=== PATIENT | male | born 1955 | race Caucasian/White ===

== ENCOUNTER 2016-06-22 18:57 | Inpatient (IN) | payer OTHER ==
--- NOTE | 2016-06-22 19:20 | PDOC ---
History of Present Illness - General History Source: Patient - History of Present Illness Initial Comments: 06/22/16 20:01 The patient is a 61 year old male with a significant past medical history of HTN , HLD, diabetes,cardiac bypass (2008), stents x5, right foot toes amputation, LASIK eye surgery who is arrived to the Emergency Department via EMS with complaints of chest tightness and allergic reaction to medications. Pt reports experiencing rash on his arms, which he believes might be due to water pills that he takes. Pt was seen in the ER on 05/31 when he was experiencing the same upper extremities rash. He also reports experiencing chest tightness and SOB due to anxiety. Pt was seen in [facility] last week for arms rash and swelling, got discharged on Friday. He denies fever, chills, abdominal pain, nausea, vomiting, diarrhea, headache, dizziness. SH:non smoker. No EtOH use ALL: banana PCP:Dr. Rios Life Skills Coach: Dr. Landers <Nadine Tuttle - Last Filed: 06/22/16 21:09> <Vanita Gregorio - Last Filed: 06/23/16 20:32> - General Stated Complaint: CHEST PAIN Time Seen by Provider: 06/22/16 19:19 Past History <Nadine Tuttle - Last Filed: 06/22/16 21:09> - Past Medical History Anemia: No Asthma: No Cancer: No Cardiac Disorders: Yes (STENTS X5) CVA: No COPD: No CHF: No Dementia: No Diabetes: Yes GI Disorders: No Disorders: No HTN: Yes Hypercholesterolemia: Yes Liver Disease: No Suicide Attempt (Hx): No Seizures: No Thyroid Disease: No - Surgical History Abdominal Surgery: No Appendectomy: No Cardiac Surgery: Yes (stents) Cholecystectomy: No Lung Surgery: No Neurologic Surgery: No Orthopedic Surgery: Yes (R. hand, r. foot toes amputated, l. foot 4th & 5th toes amputated) - Immunization History Td Vaccination: Yes TDAP Vaccination: Yes Immunization Up to Date: No - Psycho/Social/Smoking Cessation Hx Anxiety: No Suicidal Ideation: No Smoking Status: No Smoking History: Never smoked Have you smoked in the past 12 months: No Number of Cigarettes Smoked Daily: 0 Hx Alcohol Use: No Drug/Substance Use Hx: No Substance Use Type: None Hx Substance Use Treatment: No <Vanita Gregorio - Last Filed: 06/23/16 20:32> - Past Medical History Allergies/Adverse Reactions: Allergies Allergy/AdvReac Type Severity Reaction Status Date / Time banana Allergy Verified 05/31/16 20:13 No Known Drug Allergies Allergy Verified 05/31/16 20:13 Home Medications: Ambulatory Orders Acetaminophen 325 mg PO Q6H PRN 06/22/16 Ascorbate Calcium [Vitamin C] 500 mg PO DAILY 06/22/16 Calcitriol [Rocaltrol -] 0.25 mcg PO DAILY 06/22/16 Carvedilol [Coreg] 12.5 mg PO DAILY 06/22/16 Citalopram Hydrobromide [Citalopram HBr] 20 mg PO DAILY 06/22/16 Clopidogrel Bisulfate [Clopidogrel] 75 mg PO DAILY 06/22/16 Divalproex [Depakote -] 250 mg PO BID 06/22/16 Insulin Glargine,Hum.rec.anlog [Lantus (nf)] 6 units SQ HS 06/22/16 Insulin Lispro [Humalog] 2 unit SQ TID 06/22/16 Levetiracetam [Keppra Xr -] 500 mg PO DAILY 06/22/16 Sevelamer HCl [Renagel] 800 mg PO TID 06/22/16 Simvastatin [Zocor -] 40 mg PO HS 06/22/16 Warfarin Na [Coumadin] 9 mg PO DAILY 06/22/16 Review of Systems - Review of Systems Able to Perform ROS?: Yes Comments:: 06/22/16 20:01 GENERAL/CONSTITUTIONAL: No: fever, chills, weakness, loss of appetite. HEAD, EYES, EARS, NOSE AND THROAT: No: change in vision, ear pain, discharge, sore throat, throat swelling. CARDIOVASCULAR: Yes: chest pain No: lightheadedness, palpitations, syncope RESPIRATORY: Yes: SOB No: cough, wheezing, hemoptysis, stridor. GASTROINTESTINAL: No: nausea, vomiting, abdominal cramping, diarrhea, rectal bleeding, constipation. GENITOURINARY: No: dysuria, hematuria, frequency, urgency, flank pain. MUSCULOSKELETAL: No: back pain, neck pain, joint pain, muscle swelling or pain SKIN AND BREASTS: Yes: arms rash No: lesions, pallor,easy bruising. NEUROLOGIC: No: headache, vertigo, paresthesias, weakness ENDOCRINE: No: unexplained weight gain or loss HEMATOLOGIC/LYMPHATIC: No: anemia, easy bleeding, swelling nodes All Other Systems: Reviewed and Negative <Nadine Tuttle - Last Filed: 06/22/16 21:09> *Physical Exam - Vital Signs Last Vital Signs Temp Pulse Resp BP Pulse Ox 97.8 F 110 H 18 127/68 100 06/22/16 19:36 06/22/16 19:36 06/22/16 19:36 06/22/16 19:36 06/22/16 19:36 - Physical Exam Comments: 06/22/16 20:02 GENERAL: The patient is in no acute distress. HEAD: Normal with no signs of trauma. EYES: PERRLA, EOMI, sclera anicteric, conjunctiva clear. ENT: Ears normal, nares patent, oropharynx clear without exudates. Moist mucous membranes. NECK: Normal range of motion, supple without lymphadenopathy, JVD, or masses. LUNGS: Breath sounds equal, clear to auscultation bilaterally. No wheezes, and no crackles. HEART:Regular rate and rhythm, normal S1 and S2 without murmur, rub or gallop. ABDOMEN: Soft, nontender, normoactive bowel sounds. No guarding, no rebound. EXTREMITIES: +left foot 4th and 5th amputation. right foot toes amputation. bilateral lower extremities edema. Normal range of motion. No clubbing or cyanosis. No erythema, or tenderness. NEUROLOGICAL: Cranial nerves II through XII grossly intact. Normal speech. No focal neurological deficits. MUSCULOSKELETAL: Back non-tender to palpation, no CVA tenderness SKIN: +bilateral upper extremities rash. Warm, Dry, normal turgor, no rashes or lesions noted. <Nadine Tuttle - Last Filed: 06/22/16 21:09> ED Treatment Course - LABORATORY CBC & Chemistry Diagram: 06/22/16 19:59 06/22/16 19:59 <Nadine Tuttle - Last Filed: 06/22/16 21:09> - LABORATORY CBC & Chemistry Diagram: 06/23/16 06:05 06/23/16 06:05 <Vanita Gregorio - Last Filed: 06/23/16 20:32> Medical Decision Making - Medical Decision Making 06/22/16 21:09 case was discussed with Dr. Sepulveda <Nadine Tuttle - Last Filed: 06/22/16 21:09> - Medical Decision Making 06/23/16 20:26 Pt comes with chest pain and CHF exacerbation; he also has chronic wounds on his left foot that he tends to at the wound clinic. Pt states that he is compliant with all his meds, and yet he states that he is unable to keep himself well; he thinks perhaps it is because he gets confused with his meds, as he takes so many. He has DM and HTN. Pt has tachycardia in the ER; he is afebrile and he is not complaining of body pain. He has a hyphema in his eye, and states that he had eye surgery recently but never followed up with an eye appointment as he was supposed to. He also complains of rash on his arms, but it appears that he was here in Dec with the same rash, and it is improving rash seems to be an allergic reaction to perhaps the bactrim that he was taking) Pt will be admitted to his PMD, as he has CP, CHF exacerbation with pitting edema in his legs, SOB. <Vanita Gregorio - Last Filed: 06/23/16 20:32> *DC/Admit/Observation/Transfer - Attestations Scribe Attestion: 06/22/16 20:05 Documentation prepared by Nadine Tuttle, acting as medical technologist generalist for Vanita Gregorio MD. <Nadine Tuttle - Last Filed: 06/22/16 21:09> - Discharge Dispostion Admit: Yes <Vanita Gregorio - Last Filed: 06/23/16 20:32> Diagnosis at time of Disposition: Chest pain, CHF (congestive heart failure), Acute on chronic systolic ( congestive) heart failure, Dyspnea, Hyphema
[2016-06-22 19:38] VITALS: BMI 21.9
[2016-06-22 20:09] LABS: MCH 29.4 pg (25.7-33.7); MCHC 33.5 g/dl (32.0-35.9); MEAN PLT VOLUME 8.7 fl (7.5-11.1); PLATELET COUNT 193 K/MM3 (134-434); WHITE BLOOD COUNT 9.3 K/mm3 (4.0-10.0)
[2016-06-22 20:23] LABS: INR 1.17 (0.82-1.09); PROTHROMBIN TIME (PATIENT) 12.9 SEC (9.98-11.88)
[2016-06-22 20:42] LABS: METAMYELOCYTE 1 % (0-2); PLATELET ESTIMATE ADEQUATE (NORMAL)
[2016-06-22] MEDS ORDERED: CARVEDILOL 12.5 MG TABLET (FP) PO ONE (20:43)
[2016-06-22] MEDS ORDERED: FUROSEMIDE 40 MG/4 ML INJECTABLE VIAL IVPUSH ONE (20:44)
[2016-06-22] MEDS ORDERED: CARVEDILOL 12.5 MG TABLET (FP) ONE (20:46)
[2016-06-22] MEDS ORDERED: FUROSEMIDE 40 MG/4 ML INJECTABLE VIAL ONE (20:47)
[2016-06-22 20:50] LABS: ALBUMIN 2.5 g/dl (3.4-5.0); CALCIUM 7.5 mg/dL (8.5-10.1); CREATININE 2.1 mg/dL (0.7-1.3); TOT PROT 6.2 g/dl (6.4-8.2)
[2016-06-22 20:53] LABS: TROPONIN I 0.07 ng/ml (0.00-0.05)
[2016-06-22] MEDS ORDERED: ACETAMINOPHEN 325 MG TABLET (FP) PO PRN (22:53)
[2016-06-22] MEDS ORDERED: WARFARIN NA 10 MG TABLET (FP) PO SCH (23:00)
[2016-06-22] MEDS ORDERED: WARFARIN NA 5 MG TABLET (UD) ONE (23:32)
[2016-06-23 06:42] LABS: MCH 29.6 pg (25.7-33.7); MCHC 33.4 g/dl (32.0-35.9); MEAN CELL VOLUME 88.4 fl (80-96); MEAN PLT VOLUME 8.5 fl (7.5-11.1); PLATELET COUNT 136 K/MM3 (134-434); RDW 16.5 % (11.9-15.9); WHITE BLOOD COUNT 6.5 K/mm3 (4.0-10.0)
[2016-06-23 06:50] LABS: INR 1.2 (0.82-1.09); PROTHROMBIN TIME (PATIENT) 13.3 SEC (9.98-11.88)
[2016-06-23 07:09] LABS: ALBUMIN 2.3 g/dl (3.4-5.0); BILIRUBIN,TOTAL 0.7 mg/dL (0.2-1.0); CALCIUM 7.4 mg/dL (8.5-10.1); CREATININE 2.1 mg/dL (0.7-1.3); TOT PROT 5.7 g/dl (6.4-8.2)
[2016-06-23] MEDS: INSULIN SLIDING SCALE (NOVOLOG) 1 VIAL SQ SCH ×4 (07:12→21:18)
[2016-06-23] MEDS: SEVELAMER CARBONATE 800 MG TAB (FP) PO SCH ×2 (09:51→12:55)
[2016-06-23] MEDS ORDERED: levETIRAcetam 500 MG TABLET (FP) PO ONE (10:15)
[2016-06-23] MEDS ORDERED: CARVEDILOL 12.5 MG TABLET (FP) ONE (10:15)
[2016-06-23] MEDS ORDERED: CLOPIDOGREL BISULFATE 75 MG TABLET (FP) ONE (10:15)
[2016-06-23] MEDS ORDERED: DIVALPROEX SODIUM 125 MG TABLET E.C. (FP) ONE (10:15)
[2016-06-23] MEDS ORDERED: FUROSEMIDE 40 MG/4 ML INJECTABLE VIAL ONE (10:16)
[2016-06-23] MEDS: CARVEDILOL 12.5 MG TABLET (FP) PO SCH ×2 (10:25→21:19)
[2016-06-23] MEDS: DIVALPROEX SODIUM 250 MG TABLET E.C. (FP) PO SCH ×2 (10:26→21:21)
[2016-06-23] MEDS: FUROSEMIDE 40 MG/4 ML INJECTABLE VIAL IVPB SCH (10:26)
[2016-06-23] MEDS: levETIRAcetam 500 MG TABLET (FP) PO SCH (10:26)
[2016-06-23] MEDS: CLOPIDOGREL BISULFATE 75 MG TABLET (FP) PO SCH (10:26)
--- NOTE | 2016-06-23 11:16 | HP ---
Admitting History and Physical - Primary Care Physician PCP: Paul Rios - Admission Chief Complaint: DYSPNEA History of Present Illness: The patient is a 61 year old male with a significant past medical history of HTN , HLD, diabetes,cardiac bypass (2009), stents x5, right foot toes amputation, LASIK eye surgery who is arrived to the Emergency Department via EMS with complaints of chest tightness and allergic reaction to medications. Pt reports experiencing rash on his arms, which he believes might be due to water pills that he takes. Pt was seen in the ER on 05/31 when he was experiencing the same upper extremities rash. He also reports experiencing chest tightness and SOB due to anxiety. Pt was seen in [facility] last week for arms rash and swelling, got discharged on Friday. He denies fever, chills, abdominal pain, nausea, vomiting, diarrhea, headache, dizziness. SH:non smoker. No EtOH use ALL: banana History Source: Patient, Medical Record - Past Medical History [employer] COMPOSITES: Yes: Peripheral Neuropathy Cardiovascular: Yes: CAD (CABG 2009., stents x5), CHF, HTN Pulmonary: Yes: COPD Gastrointestinal: Yes: Constipation Endocrine: Yes: Diabetes Mellitus - Past Surgical History Past Surgical History: Yes: Amputation (left TMT, right 1st and 2nd toes), CABG (2008 at [facility]) - Smoking History Smoking history: Never smoked Have you smoked in the past 12 months: No Aproximately how many cigarettes per day: 0 - Alcohol/Substance Use Hx Alcohol Use: No - Social History ADL: Independent 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 Home Medications - Allergies Allergies/Adverse Reactions: Allergies Allergy/AdvReac Type Severity Reaction Status Date / Time banana Allergy Verified 05/31/16 20:13 No Known Drug Allergies Allergy Verified 05/31/16 20:13 - Home Medications Home Medications: Ambulatory Orders Acetaminophen 325 mg PO Q6H PRN 06/22/16 Ascorbate Calcium [Vitamin C] 500 mg PO DAILY 06/22/16 Calcitriol [Rocaltrol -] 0.25 mcg PO DAILY 06/22/16 Carvedilol [Coreg] 12.5 mg PO DAILY 06/22/16 Citalopram Hydrobromide [Citalopram HBr] 20 mg PO DAILY 06/22/16 Clopidogrel Bisulfate [Clopidogrel] 75 mg PO DAILY 06/22/16 Divalproex [Depakote -] 250 mg PO BID 06/22/16 Insulin Glargine,Hum.rec.anlog [Lantus (nf)] 6 units SQ HS 06/22/16 Insulin Lispro [Humalog] 2 unit SQ TID 06/22/16 Levetiracetam [Keppra Xr -] 500 mg PO DAILY 06/22/16 Sevelamer HCl [Renagel] 800 mg PO TID 06/22/16 Simvastatin [Zocor -] 40 mg PO HS 06/22/16 Warfarin Na [Coumadin] 9 mg PO DAILY 06/22/16 Family Disease History - Family Disease History Family Disease History: Diabetes: Sister Review of Systems - Review of Systems Constitutional: reports: Weakness Eyes: reports: No Symptoms HENT: reports: No Symptoms Neck: reports: No Symptoms Cardiovascular: reports: Shortness of Breath Respiratory: reports: SOB Gastrointestinal: reports: No Symptoms Genitourinary: reports: No Symptoms Musculoskeletal: reports: Muscle Weakness Integumentary: reports: Eczema, Erythema, Rash Neurological: reports: Pre-Existing Deficit, Weakness Endocrine: reports: No Symptoms Hematology/Lymphatic: reports: No Symptoms Physical Examination Vital Signs: Vital Signs Temperature 97.4 F L 06/23/16 06:24 Pulse Rate 82 06/23/16 11:02 Respiratory Rate 18 06/23/16 11:02 Blood Pressure 102/57 06/23/16 11:02 O2 Sat by Pulse Oximetry (%) 92 L 06/23/16 11:02 Constitutional: Yes: Mild Distress Eyes: Yes: WNL HENT: Yes: WNL Neck: Yes: WNL Cardiovascular: Yes: Pulse Irregular Respiratory: Yes: Diminished, On Nasal O2, Rales Gastrointestinal: Yes: WNL Renal/: Yes: WNL Musculoskeletal: Yes: Muscle Pain, Muscle Weakness Extremities: Yes: Amputation, Deformity Edema: No Integumentary: Yes: Erythema, Rash Wound/Incision: Yes: Open to air, Dressing Dry and Intact Neurological: Yes: Pre-Existing Deficit, Unsteady Gait ...Motor Strength: LLE, RLE (BKA B/L) Psychiatric: Yes: Other Labs: CBC, BMP 06/23/16 06:05 06/23/16 06:05 Problem List - Problems (1) Acute on chronic systolic (congestive) heart failure Code(s): I50.23 - ACUTE ON CHRONIC SYSTOLIC (CONGESTIVE) HEART FAILURE (2) Chest pain Code(s): R07.9 - CHEST PAIN, UNSPECIFIED (3) Dyspnea Code(s): R06.00 - DYSPNEA, UNSPECIFIED (4) 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 complication Code(s): E11.29 - TYPE 2 DIABETES MELLITUS W OTH DIABETIC KIDNEY COMPLICATION (5) Acquired absence of left foot Code(s): Z89.432 - ACQUIRED ABSENCE OF LEFT FOOT (6) Acquired absence of right foot Code(s): Z89.431 - ACQUIRED ABSENCE OF RIGHT FOOT (7) Diabetic neuropathy Code(s): E11.40 - TYPE 2 DIABETES MELLITUS WITH DIABETIC NEUROPATHY, UNSP (8) Noncompliance with medication regimen Code(s): Z91.14 - PATIENT'S OTHER NONCOMPLIANCE WITH MEDICATION REGIMEN Assessment/Plan CARDIOLOGY EVAL DIURESIS DAILY WEIGHTS LOW SODIUM DIET DIETARY CONSULT NON-COMPLIENT DIABETIC WITH MULTIPLE COMPLICATIONS PULM EVAL 02 SUPPORT NEBS RENAL EVAL MONITOR RENAL FUNCTION ON LASIX
--- NOTE | 2016-06-23 12:13 | CONSULT ---
Consult - text type - Consultation Consultation Note: Renal Consult for CKD/RUBY This is a 51 year old Gentleman with PMhx of RUBY secondary to ATN (sepsis) with CKD, PVD s/p B/L TMA, DM, CAD s/p CABG, Hypertension who presented with complaints of LE swelling, sob/cough and diffuse rash. Pt states that he developed this rash about 1 week ago after taking his regular meds (including diuretics) and went to [facility]. ? if diuretics were discontinued but pt says that the rash improved but he started to become more swollen. He took all his meds again including the diuretics and the rash recurred about 3 days ago. + sob, no chest pain, Abd pain, N/V/D. Good urine output. Denies any NSAID use. PMhx: as above Allergies: NKDA Family hx: NC/AT Social hx: No T/A/D ROS: as per HPI Home Meds: Medication Instructions Recorded Acetaminophen 325 mg PO Q6H PRN 06/22/16 Ascorbate Calcium [Vitamin C] 500 mg PO DAILY 06/22/16 Calcitriol [Rocaltrol -] 0.25 mcg PO DAILY 06/22/16 Carvedilol [Coreg] 12.5 mg PO DAILY 06/22/16 Citalopram Hydrobromide 20 mg PO DAILY 06/22/16 [Citalopram HBr] Clopidogrel Bisulfate [Clopidogrel] 75 mg PO DAILY 06/22/16 Divalproex [Depakote -] 250 mg PO BID 06/22/16 Insulin Glargine,Hum.rec.anlog 6 units SQ HS 06/22/16 [Lantus (nf)] Insulin Lispro [Humalog] 2 unit SQ TID 06/22/16 Levetiracetam [Keppra Xr -] 500 mg PO DAILY 06/22/16 Sevelamer HCl [Renagel] 800 mg PO TID 06/22/16 Simvastatin [Zocor -] 40 mg PO HS 06/22/16 Warfarin Na [Coumadin] 9 mg PO DAILY 06/22/16 Lasix ? dose Vital Signs Temperature 97.4 F L 06/23/16 06:24 Pulse Rate 82 06/23/16 11:02 Respiratory Rate 18 06/23/16 11:02 Blood Pressure 102/57 06/23/16 11:02 O2 Sat by Pulse Oximetry (%) 92 L 06/23/16 11:02 Intake & Output 06/20/16 06/21/16 06/22/16 06/23/16 23:59 23:59 23:59 23:59 Intake Total 120 Output Total 950 Balance -830 Weight 175 lb 175 lb 0.012 oz Gen: NAD, awake and alert HEENT: NC/AT, MMM, No JVD, Neck Supple CVS: RRR, No M/R Lungs: CTA, no rales or wheeze Abd: soft NT/ND Ext: b/l TMA, left foot in dressing with some drainge. 2+ edema Skin: non blanching erytehmatous patchy rash : No bladder distension CBC, BMP 06/23/16 06:05 06/23/16 06:05 Laboratory Tests 06/22/16 06/22/16 06/23/16 19:59 19:59 06:05 Eosinophils % 1.0 D Calcium 7.4 L B-Natriuretic Peptide 70256.34 H Albumin 2.3 L Current Medications Acetaminophen (Tylenol -) 650 mg PO Q6H PRN PRN Reason: FEVER OR PAIN Atorvastatin Calcium (Lipitor -) 20 mg PO HS [facility] Carvedilol (Coreg -) 12.5 mg PO BID [facility] Last Admin: 06/23/16 10:25 Dose: 12.5 mg Clopidogrel Bisulfate (Plavix -) 75 mg PO DAILY [facility] Last Admin: 06/23/16 10:26 Dose: 75 mg Divalproex Sodium (Depakote -) 250 mg PO BID [facility] Last Admin: 06/23/16 10:26 Dose: Not Given Furosemide (Lasix Injection -) 40 mg IVPB DAILY [facility] Last Admin: 06/23/16 10:26 Dose: 40 mg Insulin Aspart (Novolog Vial Sliding Scale -) [address] [facility] PRN Reason: Protocol Last Admin: 06/23/16 11:46 Dose: Not Given Insulin Detemir (Levemir Vial) [address] [facility] Levetiracetam (Keppra -) 500 mg PO DAILY [facility] Last Admin: 06/23/16 10:26 Dose: 500 mg Sevelamer Carbonate (Renvela -) 800 mg PO TIDCM [facility] Last Admin: 06/23/16 09:51 Dose: 800 mg Warfarin Sodium (Coumadin -) 10 mg PO DAILY@1800 [facility] Last Admin: 06/22/16 23:39 Dose: 10 mg A/P 51 year old Gentleman with PMhx of RUBY secondary to ATN (sepsis) with CKD, PVD s /p B/L TMA, DM, CAD s/p CABG, Hypertension who presented with complaints of LE swelling, sob/cough and diffuse rash with Cr of 2.1 #Recovering RUBY/CKD Renal function improved now compared to previous admissions Cr was 3.1 05/31/2016 pt reports good urine output Check UA, UPCR Trend BUN/cr with diuresis #CHF/Edema On Lasix IV 40mg Daily Cardiology evaluation ? if rash is related to furosemide -> if rash worsens can consider Metolazone vs. Ethacrynic acid Trend daily weights and respiratory status #Rash ? drug rash Serum eosinoprils not elevated consider derm eval, skin biopsy #Hx of Hyperphosphatemia Check Phos levels hold renvela for now as phos may be improved with better renal function #PVD Vascular/Podiatry follow up Thank you Daniel Cid DO
[2016-06-23] MEDS ORDERED: HYDROCORTISONE 1% TOPICAL CREAM 30 GM TUBE TP PRN (12:24)
--- NOTE | 2016-06-23 12:46 | CON.CARD ---
Consult Consult Specialty:: Cardiology Referred by:: Dr. Sepulveda Reason for Consultation:: chest pain, sob, rash - History of Present Illness Chief Complaint: chest pain, sob, rash History of Present Illness: 61 year old man with a history of HTN, HLD, CAD s/p CABG, ICM with chronic systolic CHF and multiple prior exacerbations, PAD with amputations, CKD, Anemia , noticed a rash as outpatient a few weeks ago, he stopped all of his medications, he presumed it was due to lasix and he was prescribed ethacrynic acid but he did not start taking it. Has been off all meds for approx 2 weeks. comes in now with c/o chest tightness, sob, edema. Pt. seen and examined in the ER in [place] states he has had progressively worsening sob and edema and developed chest tightness. - History Source History Provided By: Patient, Medical Record Limitations to Obtaining History: No Limitations - Past Medical History RELIGIOUS LEADER: Yes: Peripheral Neuropathy Cardio/Vascular: Yes: CAD (CABG 2009., stents x5), CHF, HTN Pulmonary: Yes: COPD Gastrointestinal: Yes: Constipation Endocrine: Yes: Diabetes Mellitus - Past Surgical History Past Surgical History: Yes: Amputation (left TMT, right 1st and 2nd toes), CABG (2009 at [facility]) - Alcohol/Substance Use Hx Alcohol Use: No - Smoking History Smoking history: Never smoked Have you smoked in the past 12 months: No Aproximately how many cigarettes per day: 0 - Social History ADL: Independent 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 Home Medications - Allergies Allergies/Adverse Reactions: Allergies Allergy/AdvReac Type Severity Reaction Status Date / Time banana Allergy Verified 05/31/16 20:13 No Known Drug Allergies Allergy Verified 05/31/16 20:13 - Home Medications Home Medications: Ambulatory Orders Acetaminophen 325 mg PO Q6H PRN 06/22/16 Ascorbate Calcium [Vitamin C] 500 mg PO DAILY 06/22/16 Calcitriol [Rocaltrol -] 0.25 mcg PO DAILY 06/22/16 Carvedilol [Coreg] 12.5 mg PO DAILY 06/22/16 Citalopram Hydrobromide [Citalopram HBr] 20 mg PO DAILY 06/22/16 Clopidogrel Bisulfate [Clopidogrel] 75 mg PO DAILY 06/22/16 Divalproex [Depakote -] 250 mg PO BID 06/22/16 Insulin Glargine,Hum.rec.anlog [Lantus (nf)] 6 units SQ HS 06/22/16 Insulin Lispro [Humalog] 2 unit SQ TID 06/22/16 Levetiracetam [Keppra Xr -] 500 mg PO DAILY 06/22/16 Sevelamer HCl [Renagel] 800 mg PO TID 06/22/16 Simvastatin [Zocor -] 40 mg PO HS 06/22/16 Warfarin Na [Coumadin] 9 mg PO DAILY 06/22/16 Family Disease History - Family Disease History Family Disease History: Diabetes: Sister Review of Systems - Review of Systems Constitutional: reports: Weakness. denies: No Symptoms, Chills, Diaphoresis, Fever, Lethargy, Loss of Appetite, Malaise, Night Sweats, Unintentional Wgt. Loss, Other Eyes: denies: No Symptoms, Blind Spots, Blurred Vision, Double Vision, Eye Pain , Floaters, Photophobia, Recent Change in Vision, Other HENT: denies: No Symptoms, Difficult Swallowing, Ear Discharge, Ear Pain, Epistaxis, Gingival Bleeding, Hearing Loss, Mouth Swelling, Nasal Congestion, Ocular Prosthesis, Throat Pain, Toothache, Ringing in Ears, Other Neck: denies: No Symptoms, Decreased ROM, Lumps, Pain on Movement, Stiffness, Swollen Glands, Tenderness, Other Cardiovascular: reports: Chest Pain, Edema, Shortness of Breath. denies: No Symptoms, Palpitations, Other Respiratory: reports: Exercise Intolerance, Orthopnea, PND, SOB, SOB on Exertion. denies: No Symptoms, Cough, Hemoptysis, Snoring, Wheezing, Other Gastrointestinal: denies: No Symptoms, Abdominal Pain, Bloating, Constipation, Diarrhea, Dysphagia, Indigestion, Melena, Nausea, Rectal Bleeding, Vomiting, Vomiting Blood, Other Genitourinary: denies: No Symptoms, Burning, Discharge, Dysuria, Flank Pain, Frequency, Hematuria, Incontinence, Lesions, Menses, Pain, Testicular Mass, Testicular Pain, Testicular Swelling, Urgency, Vaginal Bleeding, Other Breasts: denies: No Symptoms Reported, See HPI, Breast Implants, Discharge from Nipple, Lumps, Pain, Skin Changes, Other Musculoskeletal: denies: No Symptoms, Back Pain, Crepitus, Decreased ROM, Extremity Pain, Joint Pain, Joint Swelling, Muscle Pain, Muscle Cramps, Muscle Weakness, Other Integumentary: reports: Erythema, Rash. denies: No Symptoms, Blister, Bruising , Change in Color, Eczema, Incision, Lesions, Lump, Pallor, Pruritis, Wound, Other Neurological: denies: No Symptoms, Change in LOC, Change in Speech, Confusion, Dizziness, Headache, Incoordination, Numbness, Parasthesia, Pre-Existing Deficit , Seizure, Syncope, Tremors, Unsteady Gait, Weakness, Other Endocrine: denies: No Symptoms, Excessive Sweating, Flushing, Increased Hunger, Increased Thirst, Intolerance to Cold, Intolerance to Heat, Unexplained Weight Gain, Unexplained Weight Loss, Other Hematology/Lymphatic: denies: No Symptoms, Easily Bruised, Excessive Bleeding, Swollen Glands, Other Psychiatric: denies: No Symptoms, Altered Sleep Pattern, Anxiety, Depression, Hallucinations, Panic, Paranoia, Suicidal, Other - Risk Factors Known Risk Factors: Yes: Hypercholesterolemia, Hypertension, Prior NE /Emb Stroke Vital Signs: Vital Signs Temperature 97.4 F L 06/23/16 06:24 Pulse Rate 82 06/23/16 11:02 Respiratory Rate 18 06/23/16 11:02 Blood Pressure 102/57 06/23/16 11:02 O2 Sat by Pulse Oximetry (%) 92 L 06/23/16 11:02 Constitutional: Yes: No Distress, Calm Eyes: Yes: WNL, Conjunctiva Clear, EOM Intact, PERRL HENT: Yes: WNL, Atraumatic, Normocephalic Neck: Yes: WNL, Supple, Trachea Midline Respiratory: Yes: Regular, Diminished, Rales. No: Rhonchi, Wheezes Gastrointestinal: Yes: WNL, Normal Bowel Sounds, Soft. No: Distention, Tenderness Cardiovascular: Yes: Regular Rate and Rhythm. No: Bradycardia, Tachycardia, Pulse Irregular, Gallop, Rub, Varicosities JVD: No Carotid Bruit: No PMI: Non-Displaced Heart Sounds: Yes: S1, S2. No: Split S2, S3, S4, Clicks, Gallop, Rub, Bruit Murmur: No: Systolic Murmur, Diastolic Murmur Musculoskeletal: Yes: Joint Stiffness, Muscle Weakness Extremities: Yes: Amputation Edema: Yes Edema: LLE: 2+, RLE: 2+ Peripheral Pulses WNL: No Neurological: Yes: Alert, Oriented Psychiatric: Yes: Alert, Oriented - Other Data Labs, Other Data: CBC, BMP 06/23/16 06:05 06/23/16 06:05 INR, PTT INR 1.20 (0.82-1.09) H 06/23/16 06:05 ekg-not available in er chart to review, will follow up Echo: Report Reviewed Prior Cardiac Procedures: CABG Imaging - Results Chest X-ray: Report Reviewed, Image Reviewed EKG: Report Reviewed, Image Reviewed Other: Report Reviewed, Image Reviewed Problem List - Problems (1) Acute on chronic systolic (congestive) heart failure Code(s): I50.23 - ACUTE ON CHRONIC SYSTOLIC (CONGESTIVE) HEART FAILURE (2) Chest pain Code(s): R07.9 - CHEST PAIN, UNSPECIFIED (3) Dyspnea Code(s): R06.00 - DYSPNEA, UNSPECIFIED (4) 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 complication Code(s): E11.29 - TYPE 2 DIABETES MELLITUS W OTH DIABETIC KIDNEY COMPLICATION (5) CAD (coronary artery disease) Code(s): I25.10 - ATHSCL HEART DISEASE OF [place] CORONARY ARTERY W/O ANG PCTRS (6) Chronic kidney disease, stage 3 (moderate) Code(s): N18.3 - CHRONIC KIDNEY DISEASE, STAGE 3 (MODERATE) (7) Hyperlipemia Code(s): E78.5 - HYPERLIPIDEMIA, UNSPECIFIED (8) Hypertension Code(s): I10 - ESSENTIAL (PRIMARY) HYPERTENSION (9) PAD (peripheral artery disease) Code(s): I73.9 - PERIPHERAL VASCULAR DISEASE, UNSPECIFIED (10) S/P CABG (coronary artery bypass graft) Code(s): Z95.1 - PRESENCE OF AORTOCORONARY BYPASS GRAFT Assessment/Plan 61 year old man with a history of HTN, HLD, CAD s/p CABG, ICM with chronic systolic CHF and multiple prior exacerbations, PAD with amputations, CKD, Anemia , noticed a rash as outpatient a few weeks ago, he stopped all of his medications, he presumed it was due to lasix and he was prescribed ethacrynic acid but he did not start taking it. Has been off all meds for approx 2 weeks. comes in now with c/o chest tightness, sob, edema. SOB/Edema-acute on chronic systolic CHF in the setting of medication non- adherence, CKD -unclear if Lasix truly was the source of rash -would have dermatology evaluate -currently receiving Lasix 40mg IV daily -monitor strict I/Os and daily weights -if Lasix determined to be source of rash would consider ethacrynic acid -echo 03/2016 showed mildly reduced LV function with apical akinesis -can repeat echo tomorrow to re-evaluate -cont coreg -not on CRISTHIAN-I/ARB due to CKD Chest pain-known CAD s/p CABG -cardiac enzymes wnl x 1, would check another set -f/up presenting ekg and repeat -tele monitoring for now -repeat echo tomorrow -cont ASA, Plavix, Coreg -pt has opted for medical therapy for now for his presumed progression of CAD given risk of worsening renal function, progression to HD, and due to anemia and guaiac + stool Need to clarify pts indication for coumadin, especially in light of recent GI bleed and chronic anemia, there are no known cardiac reasons why he is on it
--- NOTE | 2016-06-23 13:18 | PN ---
Progress Note (short form) - Note Progress Note: PULMONARY CONSULTATION DICTATED 06/23/16 IMP ACUTE ON CHRONIC CHF ISCHEMIC CARDIOMYOPATHY ASHD S/P CABG,S/P STENTS PVD HTN DM ACUTE ON CHRONIC KIDNEY DISEASE PLAN IV LASIX O2 F/U CHEST X-RAY DAILY WTS MONITOR LYTES,RENAL FUNCTION DR CHOWDARY Problem List - Problems (1) Acute on chronic systolic (congestive) heart failure Code(s): I50.23 - ACUTE ON CHRONIC SYSTOLIC (CONGESTIVE) HEART FAILURE (2) Dyspnea Code(s): R06.00 - DYSPNEA, UNSPECIFIED (3) Glaucoma Code(s): H40.9 - UNSPECIFIED GLAUCOMA (4) 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 complication Code(s): E11.29 - TYPE 2 DIABETES MELLITUS W OTH DIABETIC KIDNEY COMPLICATION (5) CHF (congestive heart failure) Code(s): I50.9 - HEART FAILURE, UNSPECIFIED Qualifiers: (6) CAD (coronary artery disease) Code(s): I25.10 - ATHSCL HEART DISEASE OF [place] CORONARY ARTERY W/O ANG PCTRS (7) Chronic kidney disease, stage 3 (moderate) Code(s): N18.3 - CHRONIC KIDNEY DISEASE, STAGE 3 (MODERATE) (8) Epistaxis Code(s): R04.0 - EPISTAXIS (9) Hyperlipemia Code(s): E78.5 - HYPERLIPIDEMIA, UNSPECIFIED (10) Hypertension Code(s): I10 - ESSENTIAL (PRIMARY) HYPERTENSION
--- NOTE | 2016-06-23 14:01 | PN ---
Progress Note (short form) - Note Progress Note: Unknown why pt is on coumadin. and he has not been taking it recently as outpatient. will dc for now until clarified especially in light of recent GI bleed, anemia, and the fact that he is on both ASA and Plavix. Problem List - Problems (1) Acute on chronic systolic (congestive) heart failure Code(s): I50.23 - ACUTE ON CHRONIC SYSTOLIC (CONGESTIVE) HEART FAILURE (2) Chest pain Code(s): R07.9 - CHEST PAIN, UNSPECIFIED (3) Dyspnea Code(s): R06.00 - DYSPNEA, UNSPECIFIED (4) 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 complication Code(s): E11.29 - TYPE 2 DIABETES MELLITUS W OTH DIABETIC KIDNEY COMPLICATION (5) CAD (coronary artery disease) Code(s): I25.10 - ATHSCL HEART DISEASE OF [place] CORONARY ARTERY W/O ANG PCTRS (6) Chronic kidney disease, stage 3 (moderate) Code(s): N18.3 - CHRONIC KIDNEY DISEASE, STAGE 3 (MODERATE) (7) Hyperlipemia Code(s): E78.5 - HYPERLIPIDEMIA, UNSPECIFIED (8) Hypertension Code(s): I10 - ESSENTIAL (PRIMARY) HYPERTENSION (9) PAD (peripheral artery disease) Code(s): I73.9 - PERIPHERAL VASCULAR DISEASE, UNSPECIFIED (10) S/P CABG (coronary artery bypass graft) Code(s): Z95.1 - PRESENCE OF AORTOCORONARY BYPASS GRAFT
--- NOTE | 2016-06-23 18:20 | CONS ---
DATE OF CONSULTATION: 06/23/2016 REFERRING PHYSICIAN: Paul Rios MD The patient is a 61-year-old white male, past medical history of ASHD, status post CABG, status post ischemic cardiomyopathy, systolic CHF, PAD with amputations, hypertension, hyperlipidemia, chronic kidney disease, admitted to [facility] earlier on June 22 with complaint of increasing shortness of breath, chest tightness and cough with occasional bloody sputum. The patient denied any fevers, chills. Denied any nausea, vomiting, or diaphoresis. He states he is a nonsmoker, there is no history of occupational exposure to chemicals or fumes. He states his symptoms have been worsening for the past few days. Past medical history, again, includes ASHD, status post CABG, status post 5 stents, CHF, hypertension, ischemic cardiomyopathy, COPD, constipation, diabetes, and PAD status post amputation. Current medications include Hytone, Tylenol, Coumadin, Depakote, Keppra, Coreg, Lipitor, NovoLog, Levemir, Lasix, and Plavix. REVIEW OF SYSTEMS: Positive orthopnea, positive dyspnea, positive cough, positive sputum, positive hemoptysis. No chest pain. Positive chest tightness. No fevers, no chills, no abdominal pain. PHYSICAL EXAMINATION: General: The patient is a well developed, well nourished, awake, alert, currently in no acute distress. Vital Signs: He is currently afebrile. Blood pressure is 102/57. Respiratory rate 16. O2 saturation is 95% on room air. HEENT: Normocephalic, atraumatic. Neck: Supple. Heart: Regular, S1, S2. Chest: Bilateral crackles. Abdomen: Soft. Bowel sounds are positive. Extremities: No cyanosis. Bilateral edema and status post transmetatarsal amputation on the left lower extremity. LABORATORIES: WBC 6.5, hemoglobin 9, hematocrit 26.8, platelet count 136,000, INR is 1.2, BUN 35, creatinine 2.1. Troponin 27,477. Chest x-ray: There is cardiomegaly with mild pulmonary vascular congestion. IMPRESSION: 1. Cough, chest congestion, dyspnea, most likely secondary to decompensated congestive heart failure. 2. Ischemic cardiomyopathy. 3. Left ventricular dysfunction. 4. Peripheral vascular disease, status post left transmetatarsal amputation. 5. Diabetes. 6. Acute on chronic renal failure. PLAN: IV Lasix, supplemental O2, inhaled bronchodilators p.r.n., obtain followup chest x-ray, daily weights. MARCIN CHOWDARY M.D. [id number]
[2016-06-23] MEDS: ATORVASTATIN CA 20 MG TABLET (FP) PO SCH (21:19)
[2016-06-23] MEDS: INSULIN DETEMIR 100 UNITS/ML MDV SQ SCH (21:19)
--- NOTE | 2016-06-23 23:27 | EKG ---
Test Reason : Blood Pressure : / mmHG Vent. Rate : 106 BPM Atrial Rate : 106 BPM P-R Int : 170 ms QRS Dur : 102 ms QT Int : 382 ms P-R-T Axes : 075 -31 140 degrees QTc Int : 507 ms SINUS TACHYCARDIA POSSIBLE LEFT ATRIAL ENLARGEMENT LEFT AXIS DEVIATION ABNORMAL ECG WHEN COMPARED WITH ECG OF 09-MAY-2016 09:25, NO SIGNIFICANT CHANGE WAS FOUND Confirmed by MARCELLO JACKMAN MD ([id number]) on 06/23/2016 11:26:45 PM Referred By: Confirmed By:MARCELLO JACKMAN MD
[2016-06-24] MEDS ORDERED: HYDROmorphone HCL CARPU-JECT 1 MG/1 ML DISP.SYRIN IVPB PRN (00:36)
[2016-06-24] MEDS: INSULIN SLIDING SCALE (NOVOLOG) 1 VIAL SQ SCH ×4 (06:27→22:08)
[2016-06-24 07:39] LABS: MCH 29.4 pg (25.7-33.7); MEAN CELL VOLUME 89.1 fl (80-96); MEAN PLT VOLUME 8.8 fl (7.5-11.1); PLATELET COUNT 123 K/MM3 (134-434); RDW 17.3 % (11.9-15.9)
[2016-06-24 08:12] LABS: INR 1.34 (0.82-1.09); PROTHROMBIN TIME (PATIENT) 14.8 SEC (9.98-11.88)
[2016-06-24 08:36] LABS: ALBUMIN 2.2 g/dl (3.4-5.0); BILIRUBIN,TOTAL 0.8 mg/dL (0.2-1.0); CALCIUM 7.8 mg/dL (8.5-10.1); CREATININE 2.2 mg/dL (0.7-1.3); MAGNESIUM 1.5 mg/dL (1.8-2.4); PHOSPHOROUS 3.5 mg/dL (2.5-4.9); TOT PROT 5.4 g/dl (6.4-8.2)
[2016-06-24 09:28] LABS: METAMYELOCYTE 2 % (0-2)
[2016-06-24] MEDS: DIVALPROEX SODIUM 250 MG TABLET E.C. (FP) PO SCH ×3 (10:00→22:11)
[2016-06-24] MEDS: levETIRAcetam 500 MG TABLET (FP) PO SCH (10:00)
[2016-06-24] MEDS: CLOPIDOGREL BISULFATE 75 MG TABLET (FP) PO SCH ×2 (10:00→11:00)
[2016-06-24] MEDS: FUROSEMIDE 40 MG/4 ML INJECTABLE VIAL IVPB SCH (10:00)
[2016-06-24] MEDS: CARVEDILOL 12.5 MG TABLET (FP) PO SCH ×3 (10:00→22:09)
--- NOTE | 2016-06-24 11:34 | PN ---
Progress Note (short form) - Note Progress Note: PULMONARY States breathing is about the same. +nonproductive cough. Tolerated IV lasix yesterday, no new rashes, fevers. Last Vital Signs Temp Pulse Resp BP Pulse Ox 97.1 F L 84 18 110/60 100 06/24/16 10:23 06/24/16 10:23 06/24/16 10:23 06/24/16 10:23 06/23/16 20:10 Intake & Output 06/21/16 06/22/16 06/23/16 06/24/16 23:59 23:59 23:59 23:59 Intake Total 120 Output Total 1250 Balance -1130 Weight 175 lb 200 lb 1.6 oz Gen: NAD at rest Heart: RRR Lung: scattered basilar rales Abd: soft, nontender Ext: + edema CBC, BMP 06/24/16 06:20 06/24/16 06:20 Active Medications Acetaminophen (Tylenol -) 650 mg PO Q6H PRN PRN Reason: FEVER OR PAIN Atorvastatin Calcium (Lipitor -) 20 mg PO [facility] Last Admin: 06/23/16 21:19 Dose: 20 mg Carvedilol (Coreg -) 12.5 mg PO BID [facility] Last Admin: 06/24/16 10:00 Dose: 12.5 mg Clopidogrel Bisulfate (Plavix -) 75 mg PO DAILY [facility] Last Admin: 06/24/16 10:00 Dose: 75 mg Divalproex Sodium (Depakote -) 250 mg PO BID [facility] Last Admin: 06/24/16 10:00 Dose: 250 mg Furosemide (Lasix Injection -) 40 mg IVPB DAILY [facility] Last Admin: 06/24/16 10:00 Dose: 40 mg Hydrocortisone (Hytone 1% Cream -) 1 applic TP DAILY PRN PRN Reason: WOUND CARE Hydromorphone HCl (Dilaudid Injection -) 1 mg IVPB Q6H PRN Last Admin: 06/24/16 00:49 Dose: 1 mg Insulin Aspart (Novolog Vial Sliding Scale -) 1 vial SQ [facility] PRN Reason: Protocol Last Admin: 06/24/16 11:30 Dose: Not Given Insulin Detemir (Levemir Vial) 8 units SQ [facility] Last Admin: 06/23/16 21:19 Dose: Not Given Levetiracetam (Keppra -) 500 mg PO DAILY [facility] Last Admin: 06/24/16 10:00 Dose: 500 mg A/P Acute on Chronic LV Systolic Heart Failure Acute on Chronic Renal Failure CAD s/p CABG HTN DM PAD - continue IV lasix - monitor urine output, creatinine - daily weights, I/Os - monitor for rash - O2 as needed - DVT prophylaxis
--- NOTE | 2016-06-24 12:54 | PN ---
Progress Note, Physician Chief Complaint: in bed no distress - Current Medication List Current Medications: Active Medications Acetaminophen (Tylenol -) 650 mg PO Q6H PRN PRN Reason: FEVER OR PAIN Atorvastatin Calcium (Lipitor -) 20 mg PO [facility] Last Admin: 06/23/16 21:19 Dose: 20 mg Carvedilol (Coreg -) 12.5 mg PO BID [facility] Last Admin: 06/24/16 10:00 Dose: 12.5 mg Clopidogrel Bisulfate (Plavix -) 75 mg PO DAILY [facility] Last Admin: 06/24/16 10:00 Dose: 75 mg Divalproex Sodium (Depakote -) 250 mg PO BID [facility] Last Admin: 06/24/16 10:00 Dose: 250 mg Furosemide (Lasix Injection -) 40 mg IVPB DAILY [facility] Last Admin: 06/24/16 10:00 Dose: 40 mg Hydrocortisone (Hytone 1% Cream -) 1 applic TP DAILY PRN PRN Reason: WOUND CARE Hydromorphone HCl (Dilaudid Injection -) 1 mg IVPB Q6H PRN Last Admin: 06/24/16 00:49 Dose: 1 mg Insulin Aspart (Novolog Vial Sliding Scale -) 1 vial SQ [facility] PRN Reason: Protocol Last Admin: 06/24/16 11:30 Dose: Not Given Insulin Detemir (Levemir Vial) 8 units SQ [facility] Last Admin: 06/23/16 21:19 Dose: Not Given Levetiracetam (Keppra -) 500 mg PO DAILY [facility] Last Admin: 06/24/16 10:00 Dose: 500 mg - Objective Vital Signs: Vital Signs Temperature 97.1 F L 06/24/16 10:23 Pulse Rate 84 06/24/16 10:23 Respiratory Rate 18 06/24/16 10:23 Blood Pressure 110/60 06/24/16 10:23 O2 Sat by Pulse Oximetry (%) 100 06/23/16 20:10 Constitutional: Yes: Calm Neck: Yes: Trachea Midline Cardiovascular: Yes: Regular Rate and Rhythm, S1, S2 Respiratory: Yes: Diminished (on left side) Gastrointestinal: Yes: Normal Bowel Sounds, Soft Edema: Yes Neurological: Yes: Alert, Oriented Labs: CBC, BMP 06/24/16 06:20 06/24/16 06:20 INR, PTT INR 1.34 (0.82-1.09) H 06/24/16 06:20 Problem List - Problems (1) Acute on chronic systolic (congestive) heart failure Assessment/Plan: iv lasix monitor lytes and renal function Code(s): I50.23 - ACUTE ON CHRONIC SYSTOLIC (CONGESTIVE) HEART FAILURE (2) 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 complication Assessment/Plan: bgm insulin Code(s): E11.29 - TYPE 2 DIABETES MELLITUS W OTH DIABETIC KIDNEY COMPLICATION (3) CAD (coronary artery disease) Assessment/Plan: plavix,statin,coreg Code(s): I25.10 - ATHSCL HEART DISEASE OF [place] CORONARY ARTERY W/O ANG PCTRS
--- NOTE | 2016-06-24 13:42 | PN ---
Progress Note, Physician History of Present Illness: seen and examined today in [facility]. feels about the same today. still has edema and sob. - Current Medication List Current Medications: Active Medications Acetaminophen (Tylenol -) 650 mg PO Q6H PRN PRN Reason: FEVER OR PAIN Atorvastatin Calcium (Lipitor -) 20 mg PO HS [facility] Last Admin: 06/23/16 21:19 Dose: 20 mg Carvedilol (Coreg -) 12.5 mg PO BID [facility] Last Admin: 06/24/16 10:00 Dose: 12.5 mg Clopidogrel Bisulfate (Plavix -) 75 mg PO DAILY [facility] Last Admin: 06/24/16 10:00 Dose: 75 mg Divalproex Sodium (Depakote -) 250 mg PO BID [facility] Last Admin: 06/24/16 10:00 Dose: 250 mg Furosemide (Lasix Injection -) 40 mg IVPB DAILY [facility] Last Admin: 06/24/16 10:00 Dose: 40 mg Hydrocortisone (Hytone 1% Cream -) 1 applic TP DAILY PRN PRN Reason: WOUND CARE Hydromorphone HCl (Dilaudid Injection -) 1 mg IVPB Q6H PRN Last Admin: 06/24/16 00:49 Dose: 1 mg Insulin Aspart (Novolog Vial Sliding Scale -) 1 vial SQ [facility] PRN Reason: Protocol Last Admin: 06/24/16 11:30 Dose: Not Given Insulin Detemir (Levemir Vial) 8 units SQ [facility] Last Admin: 06/23/16 21:19 Dose: Not Given Levetiracetam (Keppra -) 500 mg PO DAILY [facility] Last Admin: 06/24/16 10:00 Dose: 500 mg - Objective Vital Signs: Vital Signs Temperature 97.1 F L 06/24/16 10:23 Pulse Rate 84 06/24/16 10:23 Respiratory Rate 18 06/24/16 10:23 Blood Pressure 110/60 06/24/16 10:23 O2 Sat by Pulse Oximetry (%) 100 06/23/16 20:10 Constitutional: Yes: No Distress, Calm Eyes: Yes: WNL, Conjunctiva Clear, EOM Intact, PERRL HENT: Yes: WNL, Atraumatic, Normocephalic Neck: Yes: WNL, Supple, Trachea Midline Cardiovascular: Yes: Regular Rate and Rhythm, S1, S2. No: Bradycardia, Tachycardia, Pulse Irregular, Bruit, JVD, Gallop, Murmur, Rub, S3, S4, Varicosities Respiratory: Yes: Regular, Diminished, On Nasal O2, Rales. No: Rhonchi, SOB, Wheezes Gastrointestinal: Yes: WNL, Normal Bowel Sounds, Soft. No: Distention, Tenderness Extremities: Yes: Amputation Edema: Yes Edema: LLE: 2+, RLE: 2+ Peripheral Pulses WNL: No Neurological: Yes: Alert, Oriented Psychiatric: Yes: Alert, Oriented Labs: CBC, BMP 06/24/16 06:20 06/24/16 06:20 INR, PTT INR 1.34 (0.82-1.09) H 06/24/16 06:20 - ....Imaging Chest X-ray: Report Reviewed, Image Reviewed EKG: Report Reviewed, Image Reviewed Other: Report Reviewed, Image Reviewed Problem List - Problems (1) Acute on chronic systolic (congestive) heart failure Code(s): I50.23 - ACUTE ON CHRONIC SYSTOLIC (CONGESTIVE) HEART FAILURE (2) Chest pain Code(s): R07.9 - CHEST PAIN, UNSPECIFIED (3) Dyspnea Code(s): R06.00 - DYSPNEA, UNSPECIFIED (4) 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 complication Code(s): E11.29 - TYPE 2 DIABETES MELLITUS W OTH DIABETIC KIDNEY COMPLICATION (5) CAD (coronary artery disease) Code(s): I25.10 - ATHSCL HEART DISEASE OF [place] CORONARY ARTERY W/O ANG PCTRS (6) Chronic kidney disease, stage 3 (moderate) Code(s): N18.3 - CHRONIC KIDNEY DISEASE, STAGE 3 (MODERATE) (7) Hyperlipemia Code(s): E78.5 - HYPERLIPIDEMIA, UNSPECIFIED (8) Hypertension Code(s): I10 - ESSENTIAL (PRIMARY) HYPERTENSION (9) PAD (peripheral artery disease) Code(s): I73.9 - PERIPHERAL VASCULAR DISEASE, UNSPECIFIED (10) S/P CABG (coronary artery bypass graft) Code(s): Z95.1 - PRESENCE OF AORTOCORONARY BYPASS GRAFT Assessment/Plan 61 year old man with a history of HTN, HLD, CAD s/p CABG, ICM with chronic systolic CHF and multiple prior exacerbations, PAD with amputations, CKD, Anemia , noticed a rash as outpatient a few weeks ago, he stopped all of his medications, he presumed it was due to lasix and he was prescribed ethacrynic acid but he did not start taking it. Has been off all meds for approx 2 weeks. comes in now with c/o chest tightness, sob, edema. SOB/Edema-acute on chronic systolic CHF in the setting of medication non- adherence, CKD -unclear if Lasix truly was the source of rash, rash has not recurred while on IV Lasix here, still has residual rash from outpatient -consider dermatology evaluation -cont Lasix 40mg IV daily -monitor strict I/Os and daily weights -if Lasix determined to be source of rash would consider ethacrynic acid -echo 03/2016 showed mildly reduced LV function with apical akinesis -f/up repeat echo to re-evaluate -cont coreg -not on CRISTHIAN-I/ARB due to CKD Chest pain-known CAD s/p CABG -cardiac enzymes wnl x 1, would check another set -f/up ekg -repeat echo today -cont ASA, Plavix, Coreg -pt has opted for medical therapy for now for his presumed progression of CAD given risk of worsening renal function, progression to HD, and due to anemia and guaiac + stool Coumadin was stopped, unclear why it was listed in his meds yesterday
[2016-06-24] MEDS ORDERED: VANCOMYCIN 1 GRAM (PRE-DOCKED) 250 ML IVPB ONE (16:38)
--- NOTE | 2016-06-24 16:45 | PN ---
Progress Note, Physician Chief Complaint: Patient with CKD, PVD, Foot ulcer, Bacteremia MRSA sepsis. The bloos culture positive for gram positive bacteria - Current Medication List Current Medications: Active Medications Acetaminophen (Tylenol -) 650 mg PO Q6H PRN PRN Reason: FEVER OR PAIN Atorvastatin Calcium (Lipitor -) 20 mg PO HS [facility] Last Admin: 06/23/16 21:19 Dose: 20 mg Carvedilol (Coreg -) 12.5 mg PO BID [facility] Last Admin: 06/24/16 10:00 Dose: 12.5 mg Clopidogrel Bisulfate (Plavix -) 75 mg PO DAILY [facility] Last Admin: 06/24/16 10:00 Dose: 75 mg Divalproex Sodium (Depakote -) 250 mg PO BID [facility] Last Admin: 06/24/16 10:00 Dose: 250 mg Furosemide (Lasix Injection -) 40 mg IVPB DAILY [facility] Last Admin: 06/24/16 10:00 Dose: 40 mg Hydrocortisone (Hytone 1% Cream -) 1 applic TP DAILY PRN PRN Reason: WOUND CARE Hydromorphone HCl (Dilaudid Injection -) 1 mg IVPB Q6H PRN Last Admin: 06/24/16 00:49 Dose: 1 mg Insulin Aspart (Novolog Vial Sliding Scale -) 1 vial SQ [facility] PRN Reason: Protocol Last Admin: 06/24/16 11:30 Dose: Not Given Insulin Detemir (Levemir Vial) 8 units SQ [facility] Last Admin: 06/23/16 21:19 Dose: Not Given Levetiracetam (Keppra -) 500 mg PO DAILY [facility] Last Admin: 06/24/16 10:00 Dose: 500 mg - Objective Vital Signs: Vital Signs Temperature 97.1 F L 06/24/16 10:23 Pulse Rate 86 06/24/16 14:29 Respiratory Rate 20 06/24/16 14:29 Blood Pressure 118/71 06/24/16 14:29 O2 Sat by Pulse Oximetry (%) 100 06/24/16 09:00 Constitutional: Yes: Well Nourished, No Distress, Calm Eyes: Yes: WNL HENT: Yes: WNL Neck: Yes: WNL Cardiovascular: Yes: Regular Rate and Rhythm, S1, S2 Respiratory: Yes: WNL, CTA Bilaterally Gastrointestinal: Yes: Normal Bowel Sounds, Abdomen, Obese Extremities: Yes: Amputation Labs: CBC, BMP 06/24/16 06:20 06/24/16 06:20 INR, PTT INR 1.34 (0.82-1.09) H 06/24/16 06:20 Problem List - Problems (1) Acute on chronic systolic (congestive) heart failure Code(s): I50.23 - ACUTE ON CHRONIC SYSTOLIC (CONGESTIVE) HEART FAILURE (2) Cellulitis and abscess of foot Code(s): L03.119 - CELLULITIS OF UNSPECIFIED PART OF LIMB L02.619 - CUTANEOUS ABSCESS OF UNSPECIFIED FOOT (3) 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 complication Code(s): E11.29 - TYPE 2 DIABETES MELLITUS W OTH DIABETIC KIDNEY COMPLICATION (4) Osteomyelitis Code(s): M86.9 - OSTEOMYELITIS, UNSPECIFIED Qualifiers: (5) CAD (coronary artery disease) Code(s): I25.10 - ATHSCL HEART DISEASE OF [place] CORONARY ARTERY W/O ANG PCTRS (6) Type 2 diabetes mellitus with foot ulcer Code(s): E11.621 - TYPE 2 DIABETES MELLITUS WITH FOOT ULCER L97.509 - NON-PRESSURE CHRONIC ULCER OTH PRT UNSP FOOT W UNSP SEVERITY (7) Diabetic foot ulcer Code(s): E11.621 - TYPE 2 DIABETES MELLITUS WITH FOOT ULCER L97.509 - NON-PRESSURE CHRONIC ULCER OTH PRT UNSP FOOT W UNSP SEVERITY Qualifiers: Laterality: bilateral (8) Hypertension Code(s): I10 - ESSENTIAL (PRIMARY) HYPERTENSION (9) Chronic kidney disease (CKD) stage G3a/A2, moderately decreased glomerular filtration rate (GFR) between 45-59 mL/min/1.73 square meter and albuminuria creatinine ratio between 30-299 mg/g Code(s): N18.3 - CHRONIC KIDNEY DISEASE, STAGE 3 (MODERATE) (10) Acute kidney failure Code(s): N17.9 - ACUTE KIDNEY FAILURE, UNSPECIFIED Assessment/Plan Renal functions close to his baseline. Has underlying advanced Chronic Kidney disease. Bacteremia persists. ? MRSA. Will give one dose of Vancomycin, until further orders are given by the ICD systems security consultant or PMD Will monitor the renal functions with you. Thank you Maria R Hidalgo MD
[2016-06-24] MEDS: ATORVASTATIN CA 20 MG TABLET (FP) PO SCH ×2 (22:06→22:12)
[2016-06-24] MEDS: INSULIN DETEMIR 100 UNITS/ML MDV SQ SCH (22:07)
[2016-06-25] MEDS: CARVEDILOL 12.5 MG TABLET (FP) PO SCH ×3 (01:05→21:23)
[2016-06-25] MEDS ORDERED: ALPRAZolam 2 MG TABLET PO ONE (02:15)
[2016-06-25] MEDS: INSULIN SLIDING SCALE (NOVOLOG) 1 VIAL SQ SCH ×4 (06:36→21:23)
[2016-06-25 07:38] LABS: MCH 29.9 pg (25.7-33.7); MCHC 33.6 g/dl (32.0-35.9); MEAN CELL VOLUME 88.9 fl (80-96); PLATELET COUNT 120 K/MM3 (134-434); RDW 17.7 % (11.9-15.9); WHITE BLOOD COUNT 5.4 K/mm3 (4.0-10.0)
--- NOTE | 2016-06-25 09:56 | PN ---
Progress Note, Physician Chief Complaint: denies chest pain - Current Medication List Current Medications: Active Medications Acetaminophen (Tylenol -) 650 mg PO Q6H PRN PRN Reason: FEVER OR PAIN Atorvastatin Calcium (Lipitor -) 20 mg PO [facility] Last Admin: 06/24/16 22:12 Dose: Not Given Carvedilol (Coreg -) 12.5 mg PO BID [facility] Last Admin: 06/25/16 01:05 Dose: 12.5 mg Clopidogrel Bisulfate (Plavix -) 75 mg PO DAILY [facility] Last Admin: 06/24/16 11:00 Dose: Not Given Divalproex Sodium (Depakote -) 250 mg PO BID [facility] Last Admin: 06/24/16 22:11 Dose: Not Given Furosemide (Lasix Injection -) 40 mg IVPB DAILY [facility] Last Admin: 06/24/16 10:00 Dose: 40 mg Hydrocortisone (Hytone 1% Cream -) 1 applic TP DAILY PRN PRN Reason: WOUND CARE Hydromorphone HCl (Dilaudid Injection -) 1 mg IVPB Q6H PRN Last Admin: 06/24/16 00:49 Dose: 1 mg Insulin Aspart (Novolog Vial Sliding Scale -) 1 vial SQ [facility] PRN Reason: Protocol Last Admin: 06/25/16 06:36 Dose: Not Given Insulin Detemir (Levemir Vial) 8 units SQ [facility] Last Admin: 06/24/16 22:07 Dose: Not Given Levetiracetam (Keppra -) 500 mg PO DAILY [facility] Last Admin: 06/24/16 10:00 Dose: 500 mg - Objective Vital Signs: Vital Signs Temperature 97.6 F 06/24/16 22:47 Pulse Rate 84 06/24/16 22:47 Respiratory Rate 18 06/24/16 22:47 Blood Pressure 102/56 06/24/16 22:47 O2 Sat by Pulse Oximetry (%) 96 06/24/16 21:00 Constitutional: Yes: No Distress Cardiovascular: Yes: Regular Rate and Rhythm Respiratory: Yes: Other (rales at bases, 1/3 up b/l) Gastrointestinal: Yes: Soft Edema: Yes Edema: LLE: 1+, RLE: 1+ Neurological: Yes: Alert Labs: CBC, BMP 06/25/16 07:00 INR, PTT INR 1.34 (0.82-1.09) H 06/24/16 06:20 Microbiology 06/22/16 20:06 Blood - Peripheral Venous Blood Culture - Preliminary Presumptive Mrsa (Pbp2a Pos) Laboratory Tests 06/22/16 06/22/16 06/24/16 19:59 19:59 06:20 WBC Hgb Plt Count Potassium 4.7 BUN 34 H Creatinine 2.2 H Troponin I 0.07 H D B-Natriuretic Peptide 70702.34 H 06/25/16 06/25/16 07:00 07:00 WBC 5.4 Hgb 8.3 L Plt Count 120 L Potassium Pending BUN Pending Creatinine Pending Troponin I B-Natriuretic Peptide Assessment/Plan Assessment/Plan 61 year old man with a history of HTN, HLD, CAD s/p CABG, ICM with chronic systolic CHF and multiple prior exacerbations, PAD with amputations, CKD, Anemia , noticed a rash as outpatient a few weeks ago, he stopped all of his medications, he presumed it was due to lasix and he was prescribed ethacrynic acid but he did not start taking it. Has been off all meds for approx 2 weeks. comes in now with c/o chest tightness, sob, edema found to be bacteremic. SOB/Edema-acute on chronic systolic CHF in the setting of medication non- adherence, CKD -unclear if Lasix truly was the source of rash, rash has not recurred while on IV Lasix here, still has residual rash from outpatient -consider dermatology evaluation -cont Lasix 40mg IV daily -monitor strict I/Os and daily weights -if Lasix determined to be source of rash would consider ethacrynic acid -echo 03/2016 showed mildly reduced LV function with apical akinesis -cont coreg -not on CRISTHIAN-I/ARB due to CKD Chest pain-known CAD s/p CABG -cardiac enzymes wnl x 1, would check another set -repeat echo result pending -cont ASA, Plavix, Coreg -pt has opted for medical therapy for now for his presumed progression of CAD given risk of worsening renal function, progression to HD, and due to anemia and guaiac + stool Coumadin was stopped, unclear why it was listed in his meds on presentation.
[2016-06-25 10:07] LABS: ALBUMIN 2.2 g/dl (3.4-5.0); BILIRUBIN,TOTAL 0.8 mg/dL (0.2-1.0); CALCIUM 7.7 mg/dL (8.5-10.1); CREATININE 2.3 mg/dL (0.7-1.3); TOT PROT 5.3 g/dl (6.4-8.2)
[2016-06-25] MEDS: levETIRAcetam 500 MG TABLET (FP) PO SCH (10:10)
[2016-06-25] MEDS: CLOPIDOGREL BISULFATE 75 MG TABLET (FP) PO SCH (10:10)
[2016-06-25] MEDS: FUROSEMIDE 40 MG/4 ML INJECTABLE VIAL IVPB SCH (10:10)
[2016-06-25] MEDS: DIVALPROEX SODIUM 250 MG TABLET E.C. (FP) PO SCH ×3 (10:11→21:23)
--- NOTE | 2016-06-25 10:45 | PN ---
Progress Note (short form) - Note Progress Note: PULMONARY States breathing is about the same. +nonproductive cough. Tolerating IV lasix, no new rashes, fevers. Last Vital Signs Temp Pulse Resp BP Pulse Ox 97.8 F 71 18 113/65 96 06/25/16 10:14 06/25/16 10:14 06/25/16 10:14 06/25/16 10:14 06/24/16 21:00 Gen: NAD at rest Heart: RRR Lung: scattered basilar rales Abd: soft, nontender Ext: + edema improving CBC, BMP 06/25/16 07:00 06/25/16 07:00 Active Medications Acetaminophen (Tylenol -) 650 mg PO Q6H PRN PRN Reason: FEVER OR PAIN Atorvastatin Calcium (Lipitor -) 20 mg PO HS [facility] Last Admin: 06/24/16 22:12 Dose: Not Given Carvedilol (Coreg -) 12.5 mg PO BID [facility] Last Admin: 06/25/16 10:10 Dose: 12.5 mg Clopidogrel Bisulfate (Plavix -) 75 mg PO DAILY [facility] Last Admin: 06/25/16 10:10 Dose: 75 mg Divalproex Sodium (Depakote -) 250 mg PO BID [facility] Last Admin: 06/25/16 10:28 Dose: Not Given Furosemide (Lasix Injection -) 40 mg IVPB DAILY [facility] Last Admin: 06/25/16 10:10 Dose: 40 mg Hydrocortisone (Hytone 1% Cream -) 1 applic TP DAILY PRN PRN Reason: WOUND CARE Hydromorphone HCl (Dilaudid Injection -) 1 mg IVPB Q6H PRN Last Admin: 06/24/16 00:49 Dose: 1 mg Insulin Aspart (Novolog Vial Sliding Scale -) 1 vial SQ [facility] PRN Reason: Protocol Last Admin: 06/25/16 06:36 Dose: Not Given Insulin Detemir (Levemir Vial) 8 units SQ [facility] Last Admin: 06/24/16 22:07 Dose: Not Given Levetiracetam (Keppra -) 500 mg PO DAILY [facility] Last Admin: 06/25/16 10:10 Dose: 500 mg A/P Acute on Chronic LV Systolic Heart Failure Acute on Chronic Renal Failure CAD s/p CABG HTN DM PAD - continue IV lasix - monitor urine output, creatinine - daily weights, I/Os - monitor for rash - O2 as needed - DVT prophylaxis - PT
[2016-06-25 11:06] LABS: TROPONIN I 0.14 ng/ml (0.00-0.05)
--- NOTE | 2016-06-25 11:44 | PN ---
Progress Note, Physician Chief Complaint: Patient with CKD, PVD, Foot ulcer, Bacteremia MRSA sepsis. The blood culture positive for gram positive bacteria - Current Medication List Current Medications: Active Medications Acetaminophen (Tylenol -) 650 mg PO Q6H PRN PRN Reason: FEVER OR PAIN Atorvastatin Calcium (Lipitor -) 20 mg PO HS [facility] Last Admin: 06/24/16 22:12 Dose: Not Given Carvedilol (Coreg -) 12.5 mg PO BID [facility] Last Admin: 06/25/16 10:10 Dose: 12.5 mg Clopidogrel Bisulfate (Plavix -) 75 mg PO DAILY [facility] Last Admin: 06/25/16 10:10 Dose: 75 mg Divalproex Sodium (Depakote -) 250 mg PO BID [facility] Last Admin: 06/25/16 10:28 Dose: Not Given Furosemide (Lasix Injection -) 40 mg IVPB DAILY [facility] Last Admin: 06/25/16 10:10 Dose: 40 mg Hydrocortisone (Hytone 1% Cream -) 1 applic TP DAILY PRN PRN Reason: WOUND CARE Hydromorphone HCl (Dilaudid Injection -) 1 mg IVPB Q6H PRN Last Admin: 06/24/16 00:49 Dose: 1 mg Insulin Aspart (Novolog Vial Sliding Scale -) [address] [facility] PRN Reason: Protocol Last Admin: 06/25/16 06:36 Dose: Not Given Insulin Detemir (Levemir Vial) 8 units SQ [facility] Last Admin: 06/24/16 22:07 Dose: Not Given Levetiracetam (Keppra -) 500 mg PO DAILY [facility] Last Admin: 06/25/16 10:10 Dose: 500 mg - Objective Vital Signs: Vital Signs Temperature 97.8 F 06/25/16 10:14 Pulse Rate 71 06/25/16 10:14 Respiratory Rate 18 06/25/16 10:14 Blood Pressure 113/65 06/25/16 10:14 O2 Sat by Pulse Oximetry (%) 96 06/24/16 21:00 Constitutional: Yes: No Distress, Calm Eyes: Yes: Conjunctiva Clear HENT: Yes: Atraumatic Neck: Yes: Trachea Midline Respiratory: Yes: CTA Bilaterally Gastrointestinal: Yes: Normal Bowel Sounds, Soft Extremities: Yes: Amputation Labs: CBC, BMP 06/25/16 07:00 06/25/16 07:00 INR, PTT INR 1.34 (0.82-1.09) H 06/24/16 06:20 Problem List - Problems (1) Acute on chronic systolic (congestive) heart failure Code(s): I50.23 - ACUTE ON CHRONIC SYSTOLIC (CONGESTIVE) HEART FAILURE (2) Cellulitis and abscess of foot Code(s): L03.119 - CELLULITIS OF UNSPECIFIED PART OF LIMB L02.619 - CUTANEOUS ABSCESS OF UNSPECIFIED FOOT (3) 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 complication Code(s): E11.29 - TYPE 2 DIABETES MELLITUS W OTH DIABETIC KIDNEY COMPLICATION (4) Osteomyelitis Code(s): M86.9 - OSTEOMYELITIS, UNSPECIFIED Qualifiers: (5) CAD (coronary artery disease) Code(s): I25.10 - ATHSCL HEART DISEASE OF [place] CORONARY ARTERY W/O ANG PCTRS (6) Type 2 diabetes mellitus with foot ulcer Code(s): E11.621 - TYPE 2 DIABETES MELLITUS WITH FOOT ULCER L97.509 - NON-PRESSURE CHRONIC ULCER OTH PRT UNSP FOOT W UNSP SEVERITY (7) Diabetic foot ulcer Code(s): E11.621 - TYPE 2 DIABETES MELLITUS WITH FOOT ULCER L97.509 - NON-PRESSURE CHRONIC ULCER OTH PRT UNSP FOOT W UNSP SEVERITY Qualifiers: Laterality: bilateral (8) Hypertension Code(s): I10 - ESSENTIAL (PRIMARY) HYPERTENSION (9) Chronic kidney disease (CKD) stage G3a/A2, moderately decreased glomerular filtration rate (GFR) between 45-59 mL/min/1.73 square meter and albuminuria creatinine ratio between 30-299 mg/g Code(s): N18.3 - CHRONIC KIDNEY DISEASE, STAGE 3 (MODERATE) (10) Acute kidney failure Code(s): N17.9 - ACUTE KIDNEY FAILURE, UNSPECIFIED Assessment/Plan Renal functions fairly stable. Has underlying advanced Chronic Kidney disease. No new suggestions at this point Will monitor the renal functions with you. Thank you Maria R Hidalgo MD
--- NOTE | 2016-06-25 11:48 | PN ---
Progress Note, Physician Chief Complaint: in bed no distres - Current Medication List Current Medications: Active Medications Acetaminophen (Tylenol -) 650 mg PO Q6H PRN PRN Reason: FEVER OR PAIN Atorvastatin Calcium (Lipitor -) 20 mg PO [facility] Last Admin: 06/24/16 22:12 Dose: Not Given Carvedilol (Coreg -) 12.5 mg PO BID [facility] Last Admin: 06/25/16 10:10 Dose: 12.5 mg Clopidogrel Bisulfate (Plavix -) 75 mg PO DAILY [facility] Last Admin: 06/25/16 10:10 Dose: 75 mg Divalproex Sodium (Depakote -) 250 mg PO BID [facility] Last Admin: 06/25/16 10:28 Dose: Not Given Furosemide (Lasix Injection -) 40 mg IVPB DAILY [facility] Last Admin: 06/25/16 10:10 Dose: 40 mg Hydrocortisone (Hytone 1% Cream -) 1 applic TP DAILY PRN PRN Reason: WOUND CARE Hydromorphone HCl (Dilaudid Injection -) 1 mg IVPB Q6H PRN Last Admin: 06/24/16 00:49 Dose: 1 mg Insulin Aspart (Novolog Vial Sliding Scale -) 1 vial SQ [facility] PRN Reason: Protocol Last Admin: 06/25/16 06:36 Dose: Not Given Insulin Detemir (Levemir Vial) 8 units SQ [facility] Last Admin: 06/24/16 22:07 Dose: Not Given Levetiracetam (Keppra -) 500 mg PO DAILY [facility] Last Admin: 06/25/16 10:10 Dose: 500 mg - Objective Vital Signs: Vital Signs Temperature 97.8 F 06/25/16 10:14 Pulse Rate 71 06/25/16 10:14 Respiratory Rate 18 06/25/16 10:14 Blood Pressure 113/65 06/25/16 10:14 O2 Sat by Pulse Oximetry (%) 96 06/24/16 21:00 Constitutional: Yes: Calm Neck: Yes: Trachea Midline Cardiovascular: Yes: Regular Rate and Rhythm, S1, S2 Respiratory: Yes: Rales (on right side) Gastrointestinal: Yes: Normal Bowel Sounds, Soft Edema: Yes (improved) Neurological: Yes: Alert, Oriented Labs: CBC, BMP 06/25/16 07:00 06/25/16 07:00 INR, PTT INR 1.34 (0.82-1.09) H 06/24/16 06:20 Problem List - Problems (1) Anemia Assessment/Plan: one unit of prbc Code(s): D64.9 - ANEMIA, UNSPECIFIED (2) Acute on chronic systolic (congestive) heart failure Assessment/Plan: cxr, echo iv lasix for now monitor lytes and renal function Code(s): I50.23 - ACUTE ON CHRONIC SYSTOLIC (CONGESTIVE) HEART FAILURE (3) 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 complication Assessment/Plan: bgm insulin Code(s): E11.29 - TYPE 2 DIABETES MELLITUS W OTH DIABETIC KIDNEY COMPLICATION (4) CAD (coronary artery disease) Assessment/Plan: plavix,statin,coreg Code(s): I25.10 - ATHSCL HEART DISEASE OF [place] CORONARY ARTERY W/O ANG PCTRS (5) Positive blood culture Assessment/Plan: go one dose vancomycin ID eval has h/o of bactermia in past Code(s): R78.81 - BACTEREMIA Assessment/Plan unclear why patient on depakote will get psych to see patient to asses if he needs it patient refusing to take it skin rash: derm eval possible biopsy
--- NOTE | 2016-06-25 15:58 | PN ---
Progress Note (short form) - Note Progress Note: ID consult dictated imp/reccd MRSA bacteremia history of chronic osteomyelitis left foot CAD Diabetes ckd poor historian recent debridement by dr Fontaine 06/19 MRSA bacteremia reconsult podiatry repeat blood cultures echo vancomycin based on levels esr/crp consider MRI of foot received vancomycin yesterday
--- NOTE | 2016-06-25 17:35 | CONSULT ---
Consult - text type - Consultation Consultation Note: 61 year old with multiple chronic medical conditions admitted for chest pain. Patient seen for psych eval. on Celexa and depakote. MS: alert, oriented, angry and irritable. I dont need a psychiatrist. I am not depressed. NOt psychotic, not hallucinating or delusional. not suicidal. cog INTYact. Plan: Continue with Celexa and depakote.
--- NOTE | 2016-06-25 18:55 | CONS ---
DATE OF CONSULTATION: DATE OF DICTATION: 06/25/2016 INFECTIOUS DISEASE CONSULTATION HISTORY OF PRESENT ILLNESS: This is a 61-year-old man with history of multiple admissions to [facility]. He is now admitted on the with chest tightness and rash. He was recently seen for the same at [facility] where apparently it is not clear if he left AMA or he was discharged. I am asked to see him because he had blood cultures drawn through the emergency room on the and of which 1 bottle is growing MRSA. The patient has chronic chills. He has no fevers or rigors. He is currently receiving a blood transfusion and is an extremely poor historian. Looking through the computer, it appears on the he underwent a debridement at the wound care center with Dr. Anne. He denies any nausea, vomiting. He denies currently any shortness of breath. PAST MEDICAL HISTORY: Notable for peripheral neuropathy, he is status post CABG in 2008 and has 5 stents, history of heart failure, hypertension, COPD, constipation and diabetes. He has a history of chronic osteomyelitis of the left foot. He has had MRSA bacteremia in the past, most recently in March of 2016. He had MRSA, Streptococcus, and proteus in his blood, was treated with long-term antibiotics. SURGICAL HISTORY: Notable for a left transmetatarsal amputation, right 1st and 2nd toe, and the CABG at [facility]. ALLERGIES: BANANAS. No known drug allergies. MEDICATION: As an outpatient, unclear which of these he actually takes, is notable for vitamin C, calcitriol, Coreg, Celexa, Plavix, Depakote, insulin, Keppra, Renagel, Zocor, and Coumadin. He lives in the community. His family is notable for diabetes in his sister. There is no history of any cigarette or substance use. REVIEW OF SYSTEMS: He reports chronic drainage from his left foot. PHYSICAL EXAMINATION: Vital signs: Temperature is 97.4. He has had no fever since admission. Blood pressure 108/60, pulse 74, respiratory rate 18, he is saturating 96%. HEENT: Normocephalic. Eyes are anicteric. Neck: Supple. Lungs: Diminished breath sounds at the bases. Heart: Regular rate and rhythm. Abdomen: Soft, nontender. Extremities: Notable for a large ulcer of his left foot, which probes at least several centimeters deep and has serous drainage. LABORATORY: Notable for white count of 5.4, hemoglobin 8.3, platelets 120, INR 1.3, BUN and creatinine are 34 and 2.3, and blood cultures 1 of 4 bottles is presumptive for MRSA. IMPRESSION: In summary, this is a 61-year-old man with methicillin resistant Staphylococcus aureus bacteremia, history of chronic osteoarthritis left foot, history of methicillin resistant Staphylococcus aureus and proteus and Streptococcus bacteremia in 2016, coronary artery disease, diabetes, and chronic kidney disease. He is a poor historian. He had a recent debridement by Dr. Anne on the . I would re-consult podiatry, I would repeat blood cultures. He received a dose of vancomycin yesterday. Would check a random level today and dose him if the level is less than 15. Will check an echocardiogram, sedimentation rate, and C-reactive protein. Further recommendations to follow. SHANA GRIFFITH M.D. [id number] MTDD
[2016-06-25] MEDS: INSULIN DETEMIR 100 UNITS/ML MDV SQ SCH (21:23)
[2016-06-25] MEDS: ATORVASTATIN CA 20 MG TABLET (FP) PO SCH (21:23)
[2016-06-26] MEDS ORDERED: ZOLPIDEM TARTRATE 5 MG TABLET PO ONE (02:00)
[2016-06-26] MEDS: INSULIN SLIDING SCALE (NOVOLOG) 1 VIAL SQ SCH ×4 (06:37→22:46)
[2016-06-26 07:42] LABS: MCHC 33.4 g/dl (32.0-35.9); MEAN CELL VOLUME 86.8 fl (80-96); MEAN PLT VOLUME 8.9 fl (7.5-11.1); PLATELET COUNT 133 K/MM3 (134-434); RDW 19.1 % (11.9-15.9); WHITE BLOOD COUNT 5.8 K/mm3 (4.0-10.0)
[2016-06-26 08:47] LABS: ALBUMIN 2.3 g/dl (3.4-5.0); BILIRUBIN,TOTAL 1.1 mg/dL (0.2-1.0); CALCIUM 7.6 mg/dL (8.5-10.1); CREATININE 2.5 mg/dL (0.7-1.3); TOT PROT 5.6 g/dl (6.4-8.2)
--- NOTE | 2016-06-26 09:14 | PN ---
Progress Note, Physician Chief Complaint: seen and examined, no acute distress afebrile - Current Medication List Current Medications: Active Medications Acetaminophen (Tylenol -) 650 mg PO Q6H PRN PRN Reason: FEVER OR PAIN Atorvastatin Calcium (Lipitor -) 20 mg PO HS [facility] Last Admin: 06/25/16 21:23 Dose: Not Given Carvedilol (Coreg -) 12.5 mg PO BID [facility] Last Admin: 06/25/16 21:23 Dose: 12.5 mg Clopidogrel Bisulfate (Plavix -) 75 mg PO DAILY [facility] Last Admin: 06/25/16 10:10 Dose: 75 mg Divalproex Sodium (Depakote -) 250 mg PO BID [facility] Last Admin: 06/25/16 21:23 Dose: Not Given Furosemide (Lasix Injection -) 40 mg IVPB DAILY [facility] Last Admin: 06/25/16 10:10 Dose: 40 mg Hydrocortisone (Hytone 1% Cream -) 1 applic TP DAILY PRN PRN Reason: WOUND CARE Hydromorphone HCl (Dilaudid Injection -) 1 mg IVPB Q6H PRN Last Admin: 06/24/16 00:49 Dose: 1 mg Insulin Aspart (Novolog Vial Sliding Scale -) 1 vial SQ [facility] PRN Reason: Protocol Last Admin: 06/26/16 06:37 Dose: Not Given Insulin Detemir (Levemir Vial) 8 units SQ [facility] Last Admin: 06/25/16 21:23 Dose: Not Given Levetiracetam (Keppra -) 500 mg PO DAILY [facility] Last Admin: 06/25/16 10:10 Dose: 500 mg - Objective Vital Signs: Vital Signs Temperature 98 F 06/26/16 05:16 Pulse Rate 74 06/26/16 05:16 Respiratory Rate 18 06/26/16 05:16 Blood Pressure 119/67 06/26/16 05:16 O2 Sat by Pulse Oximetry (%) 98 06/25/16 21:00 Constitutional: Yes: Calm Eyes: Yes: Conjunctiva Clear Cardiovascular: Yes: Regular Rate and Rhythm Respiratory: Yes: Other (rales at bases, some improvement from yesterday, but still present) Gastrointestinal: Yes: Soft Edema: Yes Edema: LLE: 1+, RLE: 1+ Neurological: Yes: Alert Labs: CBC, BMP 06/26/16 06:00 06/26/16 06:00 INR, PTT INR 1.34 (0.82-1.09) H 06/24/16 06:20 Microbiology Laboratory Tests 06/26/16 06/26/16 06:00 06:00 WBC 5.8 Hgb 9.5 L D Plt Count 133 L Potassium 4.3 Creatinine 2.5 H Assessment/Plan Assessment/Plan 61 year old man with a history of HTN, HLD, CAD s/p CABG, ICM with chronic systolic CHF and multiple prior exacerbations, PAD with amputations, CKD, Anemia , noticed a rash as outpatient a few weeks ago, he stopped all of his medications, he presumed it was due to lasix and he was prescribed ethacrynic acid but he did not start taking it. Has been off all meds for approx 2 weeks. comes in now with c/o chest tightness, sob, edema found to be bacteremic. SOB/Edema-acute on chronic systolic CHF in the setting of medication non- adherence, CKD -unclear if Lasix truly was the source of rash, rash has not recurred while on IV Lasix here, still has residual rash from outpatient. Lasix does not appear to be the source of his rash -consider dermatology evaluation -cont Lasix 40mg IV daily as he is still moderately volume overloaded. -echo 03/2016 showed mildly reduced LV function with apical akinesis -cont coreg -not on CRISTHIAN-I/ARB due to CKD Chest pain-known CAD s/p CABG -cardiac enzymes flat -cont Plavix, Coreg -pt has opted for medical therapy for now for his presumed progression of CAD given risk of worsening renal function, progression to HD, and due to anemia and guaiac + stool
--- NOTE | 2016-06-26 09:50 | PN ---
Progress Note, Physician - Current Medication List Current Medications: Active Medications Acetaminophen (Tylenol -) 650 mg PO Q6H PRN PRN Reason: FEVER OR PAIN Atorvastatin Calcium (Lipitor -) 20 mg PO HS [facility] Last Admin: 06/25/16 21:23 Dose: Not Given Carvedilol (Coreg -) 12.5 mg PO BID [facility] Last Admin: 06/25/16 21:23 Dose: 12.5 mg Clopidogrel Bisulfate (Plavix -) 75 mg PO DAILY [facility] Last Admin: 06/25/16 10:10 Dose: 75 mg Divalproex Sodium (Depakote -) 250 mg PO BID [facility] Last Admin: 06/25/16 21:23 Dose: Not Given Furosemide (Lasix Injection -) 40 mg IVPB DAILY [facility] Last Admin: 06/25/16 10:10 Dose: 40 mg Hydrocortisone (Hytone 1% Cream -) 1 applic TP DAILY PRN PRN Reason: WOUND CARE Hydromorphone HCl (Dilaudid Injection -) 1 mg IVPB Q6H PRN Last Admin: 06/24/16 00:49 Dose: 1 mg Insulin Aspart (Novolog Vial Sliding Scale -) 1 vial SQ [facility] PRN Reason: Protocol Last Admin: 06/26/16 06:37 Dose: Not Given Insulin Detemir (Levemir Vial) 8 units SQ [facility] Last Admin: 06/25/16 21:23 Dose: Not Given Levetiracetam (Keppra -) 500 mg PO DAILY [facility] Last Admin: 06/25/16 10:10 Dose: 500 mg - Objective Vital Signs: Vital Signs Temperature 98 F 06/26/16 05:16 Pulse Rate 74 06/26/16 05:16 Respiratory Rate 18 06/26/16 05:16 Blood Pressure 119/67 06/26/16 05:16 O2 Sat by Pulse Oximetry (%) 98 06/25/16 21:00 Cardiovascular: Yes: Regular Rate and Rhythm Respiratory: Yes: Rales Gastrointestinal: Yes: Normal Bowel Sounds, Soft Labs: CBC, BMP 06/26/16 06:00 06/26/16 06:00 INR, PTT INR 1.34 (0.82-1.09) H 06/24/16 06:20 Assessment/Plan - Problems (1) Anemia Assessment/Plan: one unit of prbc Code(s): D64.9 - ANEMIA, UNSPECIFIED (2) Acute on chronic systolic (congestive) heart failure Assessment/Plan: cxr, echo iv lasix for now monitor lytes and renal function Code(s): I50.23 - ACUTE ON CHRONIC SYSTOLIC (CONGESTIVE) HEART FAILURE (3) 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 complication Assessment/Plan: bgm insulin Code(s): E11.29 - TYPE 2 DIABETES MELLITUS W OTH DIABETIC KIDNEY COMPLICATION (4) CAD (coronary artery disease) Assessment/Plan: plavix,statin,coreg Code(s): I25.10 - ATHSCL HEART DISEASE OF [place] CORONARY ARTERY W/O ANG PCTRS (5) Positive blood culture Assessment/Plan: go one dose vancomycin ID eval has h/o of bactermia in past Code(s): R78.81 - BACTEREMIA (6) Foot Ulcer Assessment/Plan: podiatry abx Assessment/Plan unclear why patient on depakote psych evaluated patient patient refusing to take it skin rash: derm eval possible biopsy
[2016-06-26] MEDS: levETIRAcetam 500 MG TABLET (FP) PO SCH (10:41)
[2016-06-26] MEDS: CLOPIDOGREL BISULFATE 75 MG TABLET (FP) PO SCH (10:41)
[2016-06-26] MEDS: FUROSEMIDE 40 MG/4 ML INJECTABLE VIAL IVPB SCH (10:41)
[2016-06-26] MEDS: DIVALPROEX SODIUM 250 MG TABLET E.C. (FP) PO SCH ×2 (10:42→22:46)
[2016-06-26] MEDS: CARVEDILOL 12.5 MG TABLET (FP) PO SCH ×2 (10:44→22:46)
--- NOTE | 2016-06-26 12:28 | CONSULT ---
Consult Consult Specialty:: Podiatry Referred by:: Dr Rios Reason for Consultation:: Multiple Left foot ulcers - History of Present Illness Chief Complaint: I have wounds on my left foot History of Present Illness: The patient is a 61 year old male with a significant past medical history of HTN , HLD, diabetes,cardiac bypass (2009), stents x5, right foot toes amputation, LASIK eye surgery who is arrived to the Emergency Department via EMS with complaints of chest tightness and allergic reaction to medications. Pt reports experiencing rash on his arms, which he believes might be due to water pills that he takes. Pt was seen in the ER on 05/31 when he was experiencing the same upper extremities rash. He also reports experiencing chest tightness and SOB due to anxiety. Pt was seen in [facility] last week for arms rash and swelling, got discharged on Friday. He denies fever, chills, abdominal pain, nausea, vomiting, diarrhea, headache, dizziness. He was admitted to [facility] on 06/22/2016 SH:non smoker. No EtOH use. Lidian well known to me. 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 Home Medications - Allergies Allergies/Adverse Reactions: Allergies Allergy/AdvReac Type Severity Reaction Status Date / Time banana Allergy Verified 05/31/16 20:13 No Known Drug Allergies Allergy Verified 05/31/16 20:13 - Home Medications Home Medications: Ambulatory Orders Acetaminophen 325 mg PO Q6H PRN 06/22/16 Ascorbate Calcium [Vitamin C] 500 mg PO DAILY 06/22/16 Calcitriol [Rocaltrol -] 0.25 mcg PO DAILY 06/22/16 Carvedilol [Coreg] 12.5 mg PO DAILY 06/22/16 Citalopram Hydrobromide [Citalopram HBr] 20 mg PO DAILY 06/22/16 Clopidogrel Bisulfate [Clopidogrel] 75 mg PO DAILY 06/22/16 Divalproex [Depakote -] 250 mg PO BID 06/22/16 Insulin Glargine,Hum.rec.anlog [Lantus (nf)] 6 units SQ HS 06/22/16 Insulin Lispro [Humalog] 2 unit SQ TID 06/22/16 Levetiracetam [Keppra Xr -] 500 mg PO DAILY 06/22/16 Sevelamer HCl [Renagel] 800 mg PO TID 06/22/16 Simvastatin [Zocor -] 40 mg PO HS 06/22/16 Warfarin Na [Coumadin] 9 mg PO DAILY 06/22/16 Family Disease History - Family Disease History Family Disease History: Diabetes: Sister Review of Systems - Review of Systems Constitutional: reports: No Symptoms Eyes: reports: No Symptoms HENT: reports: No Symptoms Neck: reports: No Symptoms Cardiovascular: reports: No Symptoms Respiratory: reports: No Symptoms Gastrointestinal: reports: No Symptoms Genitourinary: reports: No Symptoms Musculoskeletal: reports: No Symptoms Integumentary: reports: Wound Neurological: reports: No Symptoms Endocrine: reports: No Symptoms Hematology/Lymphatic: reports: No Symptoms Psychiatric: reports: No Symptoms Pain Intensity: 2 Physical Exam Vital Signs: Vital Signs Temperature 98 F 06/26/16 05:16 Pulse Rate 80 06/26/16 10:45 Respiratory Rate 18 06/26/16 10:45 Blood Pressure 120/68 06/26/16 10:45 O2 Sat by Pulse Oximetry (%) 98 06/25/16 21:00 Constitutional: Yes: No Distress, Anxious Extremities: Yes: Amputation (B/L TMA) Edema: No Peripheral Pulses WNL: Yes Integumentary: Yes: Rash (B/L Upper Extremities) Wound/Incision: Yes: Dressing Dry and Intact (Multiple wounds left lower extremity. The ain wound is on the plantar lateral aspect, edges rolled base mixed fibro granular. All wounds have no drainge no mal odor and undermining or tunelling. There is no clinicla signs of infection.) Neurological: Yes: Alert, Oriented, Cran Nerves II-XII Intact, Loss of Sensation , Paresthesia ...Motor Strength: WNL Psychiatric: Yes: Alert, Oriented Labs: CBC, BMP 06/26/16 06:00 06/26/16 06:00 Problem List - Problems (1) Chronic kidney disease (CKD) stage G3a/A2, moderately decreased glomerular filtration rate (GFR) between 45-59 mL/min/1.73 square meter and albuminuria creatinine ratio between 30-299 mg/g Code(s): N18.3 - CHRONIC KIDNEY DISEASE, STAGE 3 (MODERATE) (2) 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 complication Code(s): E11.29 - TYPE 2 DIABETES MELLITUS W OTH DIABETIC KIDNEY COMPLICATION (3) CHF (congestive heart failure) Code(s): I50.9 - HEART FAILURE, UNSPECIFIED Qualifiers: (4) Acquired absence of left foot Code(s): Z89.432 - ACQUIRED ABSENCE OF LEFT FOOT (5) Acquired absence of right foot Code(s): Z89.431 - ACQUIRED ABSENCE OF RIGHT FOOT (6) lobsterman 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 Order written All other co-morbidities as per medical team
--- NOTE | 2016-06-26 13:02 | PN ---
Past Medical History - Past Medical History Vital Signs: Last Vital Signs Temp Pulse Resp BP Pulse Ox 98 F 80 18 120/68 98 06/26/16 05:16 06/26/16 10:45 06/26/16 10:45 06/26/16 10:45 06/25/16 21:00 PMH,PSH,Fam Hx, Meds,Allergies,Previous Tx: Reviewed in Nursing Documentation and no changes since last visit. - Wound Assessment Wound #1 Wound: Stage III Ulcer There is a (size) wound on the Left/Right Plantar/Dorsal Foot/Heel/Toe Surface ( location) with (no/yes undermining) @ (Time) o'clock and (no/cm tunneling) at (time) o' clock that has slough/damaged/devitalized/contaminated tissue and minimal granulation tissue with no/odorous pink drainage and the surrounding skin is intact with surrounding callous. Multiple VLU There is a (size) wound in the (Right/Left ankle location) with (no/yes undermining) @ (Time) o'clock and (no/cm tunneling) at (time) o'clock that has slough/damaged/ devitalized/contaminated tissue and minimal granulation tissue with no exudate and the surrounding skin is intact and dry. Unstageable Ulcer There is a (size) wound on the Left/Right Foot/Heel/Toe location with (no/yes undermining) @ (Time)o'clock and (no/cm tunneling) at (time) o'clock that has 100% necrotic tissue with no drainage and the surrounding skin is mottled, painful, and erythematous. Assessment: Stage I Plan of Care: A history was completed , an examination was performed, and the decision was made to perform an excisional debridement using a scalpel / Apply an appligraf. The areas for debridement were prepped and cleansed. Using a #10 blade, I excisionally debrided the damaged/ Devitalized/Necrotic tissue down to Sub Cutaneous tissue/ Muscle/ Bone and upon completion was covered with a damp saline moistened gauze. Topical Lidocaine was used. Some bleeding occurred and pressure was applied. Each ulcer was dressed with Calcium Alginate/Endoform/Multi-layered compression wraps. The patient tolerated the procedures well. The areas for Apligraf application were prepped and cleansed. The Apligraf was fenestrated several times using a #15 blade. The Apligraf was applied to the wound and surgically fixated according to the coat cutter's recommendations. The area was aeseptically dressed with mineral oil soaked mepitel, gauze and wrapped with Talon and coban was used for compression. Instructions: Instructions were provided to the Patient/Family/QUALITATIVE RESEARCHER, and the patient is to return in seven days. Patient demonstrated verbal understanding of all that was said today and they agreed to alert me on effectiveness. Problem List - Problems (1) Chronic kidney disease (CKD) stage G3a/A2, moderately decreased glomerular filtration rate (GFR) between 45-59 mL/min/1.73 square meter and albuminuria creatinine ratio between 30-299 mg/g Code(s): N18.3 - CHRONIC KIDNEY DISEASE, STAGE 3 (MODERATE) (2) 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 complication Code(s): E11.29 - TYPE 2 DIABETES MELLITUS W OTH DIABETIC KIDNEY COMPLICATION (3) CHF (congestive heart failure) Code(s): I50.9 - HEART FAILURE, UNSPECIFIED Qualifiers: (4) Acquired absence of left foot Code(s): Z89.432 - ACQUIRED ABSENCE OF LEFT FOOT (5) Acquired absence of right foot Code(s): Z89.431 - ACQUIRED ABSENCE OF RIGHT FOOT (6) jail current use of anticoagulant Code(s): Z79.01 - MULTIPLE GAMES DEALER (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 OF ANTICOAGULANTS (7) 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
--- NOTE | 2016-06-26 13:11 | PN ---
Progress Note, Physician History of Present Illness: pulmonary alert,feeling better,dyspnea improving - Current Medication List Current Medications: Active Medications Acetaminophen (Tylenol -) 650 mg PO Q6H PRN PRN Reason: FEVER OR PAIN Atorvastatin Calcium (Lipitor -) 20 mg PO HS [facility] Last Admin: 06/25/16 21:23 Dose: Not Given Carvedilol (Coreg -) 12.5 mg PO BID [facility] Last Admin: 06/26/16 10:44 Dose: 12.5 mg Clopidogrel Bisulfate (Plavix -) 75 mg PO DAILY [facility] Last Admin: 06/26/16 10:41 Dose: 75 mg Divalproex Sodium (Depakote -) 250 mg PO BID [facility] Last Admin: 06/26/16 10:42 Dose: Not Given Furosemide (Lasix Injection -) 40 mg IVPB DAILY [facility] Last Admin: 06/26/16 10:41 Dose: 40 mg Hydrocortisone (Hytone 1% Cream -) 1 applic TP DAILY PRN PRN Reason: WOUND CARE Hydromorphone HCl (Dilaudid Injection -) 1 mg IVPB Q6H PRN Last Admin: 06/24/16 00:49 Dose: 1 mg Insulin Aspart (Novolog Vial Sliding Scale -) 1 vial SQ [facility] PRN Reason: Protocol Last Admin: 06/26/16 12:22 Dose: Not Given Insulin Detemir (Levemir Vial) 8 units SQ [facility] Last Admin: 06/25/16 21:23 Dose: Not Given Levetiracetam (Keppra -) 500 mg PO DAILY [facility] Last Admin: 06/26/16 10:41 Dose: 500 mg - Objective Vital Signs: Vital Signs Temperature 98 F 06/26/16 05:16 Pulse Rate 80 06/26/16 10:45 Respiratory Rate 18 06/26/16 10:45 Blood Pressure 120/68 06/26/16 10:45 O2 Sat by Pulse Oximetry (%) 98 06/25/16 21:00 Constitutional: Yes: Well Nourished, Calm Eyes: Yes: WNL HENT: Yes: WNL Neck: Yes: WNL Cardiovascular: Yes: Regular Rate and Rhythm, S2 Respiratory: Yes: Diminished Gastrointestinal: Yes: WNL Extremities: Yes: Amputation (left transmetatarsal) Edema: Yes Labs: CBC, BMP 06/26/16 06:00 06/26/16 06:00 INR, PTT INR 1.34 (0.82-1.09) H 06/24/16 06:20 Problem List - Problems (1) Acute on chronic systolic (congestive) heart failure Code(s): I50.23 - ACUTE ON CHRONIC SYSTOLIC (CONGESTIVE) HEART FAILURE (2) Dyspnea Code(s): R06.00 - DYSPNEA, UNSPECIFIED (3) Glaucoma Code(s): H40.9 - UNSPECIFIED GLAUCOMA (4) 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 complication Code(s): E11.29 - TYPE 2 DIABETES MELLITUS W OTH DIABETIC KIDNEY COMPLICATION (5) CHF (congestive heart failure) Code(s): I50.9 - HEART FAILURE, UNSPECIFIED Qualifiers: (6) CAD (coronary artery disease) Code(s): I25.10 - ATHSCL HEART DISEASE OF [place] CORONARY ARTERY W/O ANG PCTRS (7) Chronic kidney disease, stage 3 (moderate) Code(s): N18.3 - CHRONIC KIDNEY DISEASE, STAGE 3 (MODERATE) (8) Epistaxis Code(s): R04.0 - EPISTAXIS (9) Hyperlipemia Code(s): E78.5 - HYPERLIPIDEMIA, UNSPECIFIED (10) Hypertension Code(s): I10 - ESSENTIAL (PRIMARY) HYPERTENSION Assessment/Plan IMP ACUTE ON CHRONIC CHF ISCHEMIC CARDIOMYOPATHY ASHD S/P CABG,S/P STENTS PVD HTN DM ACUTE ON CHRONIC KIDNEY DISEASE PLAN CONTINUE IV LASIX O2 F/U CHEST X-RAY DAILY WTS MONITOR LYTES,RENAL FUNCTION DR CHOWDARY Problem List - Problems (1) Acute on chronic systolic (congestive) heart failure Code(s): I50.23 - ACUTE ON CHRONIC SYSTOLIC (CONGESTIVE) HEART FAILURE (2) Dyspnea Code(s): R06.00 - DYSPNEA, UNSPECIFIED (3) Glaucoma Code(s): H40.9 - UNSPECIFIED GLAUCOMA (4) 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 complication Code(s): E11.29 - TYPE 2 DIABETES MELLITUS W OTH DIABETIC KIDNEY COMPLICATION (5) CHF (congestive heart failure) Code(s): I50.9 - HEART FAILURE, UNSPECIFIED Qualifiers: (6) CAD (coronary artery disease) Code(s): I25.10 - ATHSCL HEART DISEASE OF [place] CORONARY ARTERY W/O ANG PCTRS (7) Chronic kidney disease, stage 3 (moderate) Code(s): N18.3 - CHRONIC KIDNEY DISEASE, STAGE 3 (MODERATE) (8) Epistaxis Code(s): R04.0 - EPISTAXIS (9) Hyperlipemia Code(s): E78.5 - HYPERLIPIDEMIA, UNSPECIFIED (10) Hypertension Code(s): I10 - ESSENTIAL (PRIMARY) HYPERTENSION
--- NOTE | 2016-06-26 13:36 | PN ---
Progress Note (short form) - Note Progress Note: refused labs yesterday, done today refused echo this am refused MRI so I did not order it Vital Signs Period Temp Pulse Resp BP Sys/Mejia Pulse Ox Last 24 Hr 97.4 F-98 F 74-80 18-18 108-120/60-69 98 cor-rrr lungs clear abd soft,nt ext dressing intact CBC, BMP 06/26/16 06:00 06/26/16 06:00 Laboratory Tests 06/26/16 06:00 Random Vancomycin 13.547 repeat blood cultures pending Microbiology 06/22/16 20:06 Blood - Peripheral Venous Blood Culture - Preliminary Staphylococcus Species 06/22/16 20:06 Blood - Peripheral Venous Blood Culture - Preliminary NO GROWTH OBTAINED AFTER 72 HOURS, INCUBATION TO CONTINUE FOR 2 DAYS. 06/23/16 00:43 Urine For Antigen Detection Legionella Antigen - Final 06/23/16 00:43 Urine For Antigen Detection Streptococcus pneumoniae Antigen (M - Final a/p ?MRSA bacteremia CKD diabetes CAD medical noncompliance repeat blood cultures pending redose vancomycin today f/u cultures
[2016-06-26] MEDS ORDERED: VANCOMYCIN 1 GRAM (PRE-DOCKED) 250 ML IVPB ONE (14:15)
--- NOTE | 2016-06-26 16:54 | PN ---
Progress Note (short form) - Note Progress Note: Renal Follow up for RUBY/CKD Pt seen and examined at the bedside no acute complaints has mild sob at times no cough, fever or chills good urine output swelling improved rash resolved Vital Signs Temperature 98 F 06/26/16 05:16 Pulse Rate 80 06/26/16 10:45 Respiratory Rate 18 06/26/16 10:45 Blood Pressure 120/68 06/26/16 10:45 O2 Sat by Pulse Oximetry (%) 98 06/26/16 09:00 Intake & Output 06/23/16 06/24/16 06/25/16 06/26/16 23:59 23:59 23:59 23:59 Intake Total 120 360 490 400 Output Total 1250 1400 1500 275 Balance -1130 -1040 -1010 125 Weight 200 lb 1.6 oz Gen: NAD, awake and alert CVS: RRR, No M/R Lungs: CTA, no rales or wheeze Abd: soft NT/ND Ext: b/l TMA, 2+ edema CBC, BMP 06/26/16 06:00 06/26/16 06:00 Current Medications Acetaminophen (Tylenol -) 650 mg PO Q6H PRN PRN Reason: FEVER OR PAIN Atorvastatin Calcium (Lipitor -) 20 mg PO HS [facility] Last Admin: 06/25/16 21:23 Dose: Not Given Carvedilol (Coreg -) 12.5 mg PO BID [facility] Last Admin: 06/26/16 10:44 Dose: 12.5 mg Clopidogrel Bisulfate (Plavix -) 75 mg PO DAILY [facility] Last Admin: 06/26/16 10:41 Dose: 75 mg Divalproex Sodium (Depakote -) 250 mg PO BID [facility] Last Admin: 06/26/16 10:42 Dose: Not Given Furosemide (Lasix Injection -) 40 mg IVPB DAILY [facility] Last Admin: 06/26/16 10:41 Dose: 40 mg Hydrocortisone (Hytone 1% Cream -) 1 applic TP DAILY PRN PRN Reason: WOUND CARE Hydromorphone HCl (Dilaudid Injection -) 1 mg IVPB Q6H PRN Last Admin: 06/24/16 00:49 Dose: 1 mg Insulin Aspart (Novolog Vial Sliding Scale -) 1 vial SQ ACHS [facility] PRN Reason: Protocol Last Admin: 06/26/16 12:22 Dose: Not Given Insulin Detemir (Levemir Vial) 8 units SQ HS [facility] Last Admin: 06/25/16 21:23 Dose: Not Given Levetiracetam (Keppra -) 500 mg PO DAILY [facility] Last Admin: 06/26/16 10:41 Dose: 500 mg A/P 51 year old Gentleman with PMhx of RUBY secondary to ATN (sepsis) with CKD, PVD s /p B/L TMA, DM, CAD s/p CABG, Hypertension who presented with complaints of LE swelling, sob/cough and diffuse rash with Cr of 2.1 #Recovering RUBY/CKD Renal function stable this admission continue lasix as per Cardiology no indication for [employer] hold ARB/ACEi for now #CHF/Edema On Lasix IV 40mg Daily Cardiology evaluation edema improving #Rash now resolved etiology unclear Thank you Daniel Cid DO
--- NOTE | 2016-06-26 17:24 | CONSULT ---
Consult - text type - Consultation Consultation Note: Dermatology patient says his rash has now resolved .He reports having a rash only on the arms and it is now gone. examination with nurse present reveals no eruption at this time . exam of back clear. exam of other areas refused please reconsult if eruption returns. Thank You
[2016-06-26] MEDS ORDERED: INSULIN (NOVOLOG) ASPART 100 UNITS/ML 10ML VIAL ONE (22:05)
[2016-06-26] MEDS: INSULIN DETEMIR 100 UNITS/ML MDV SQ SCH (22:46)
[2016-06-26] MEDS: ATORVASTATIN CA 20 MG TABLET (FP) PO SCH (22:46)
[2016-06-27] MEDS ORDERED: HYDROmorphone HCL CARPU-JECT 1 MG/1 ML DISP.SYRIN IVPB PRN (02:32)
[2016-06-27] MEDS: INSULIN SLIDING SCALE (NOVOLOG) 1 VIAL SQ SCH ×4 (06:55→21:55)
[2016-06-27 08:36] LABS: EOSINOPHIL 2.3 % (0-4.5); MCH 28.9 pg (25.7-33.7); MCHC 33.3 g/dl (32.0-35.9); MEAN CELL VOLUME 86.7 fl (80-96); MEAN PLT VOLUME 8.8 fl (7.5-11.1); NEUTROPHILS 67.6 % (42.8-82.8); PLATELET COUNT 137 K/MM3 (134-434); RDW 19.4 % (11.9-15.9)
[2016-06-27 09:36] LABS: CALCIUM 7.8 mg/dL (8.5-10.1); CREATININE 2.4 mg/dL (0.7-1.3); MAGNESIUM 1.8 mg/dL (1.8-2.4); PHOSPHOROUS 4.2 mg/dL (2.5-4.9)
--- NOTE | 2016-06-27 10:14 | PN ---
Progress Note, Physician Chief Complaint: afebrile no distress d/u cultures no growth History of Present Illness: creat is stable - Current Medication List Current Medications: Active Medications Acetaminophen (Tylenol -) 650 mg PO Q6H PRN PRN Reason: FEVER OR PAIN Atorvastatin Calcium (Lipitor -) 20 mg PO HS [facility] Last Admin: 06/26/16 22:46 Dose: Not Given Carvedilol (Coreg -) 12.5 mg PO BID [facility] Last Admin: 06/26/16 22:46 Dose: 12.5 mg Clopidogrel Bisulfate (Plavix -) 75 mg PO DAILY [facility] Last Admin: 06/26/16 10:41 Dose: 75 mg Collagenase (Santyl -) 1 applic TP DAILY [facility] Divalproex Sodium (Depakote -) 250 mg PO BID [facility] Last Admin: 06/26/16 22:46 Dose: Not Given Furosemide (Lasix Injection -) 40 mg IVPB DAILY [facility] Last Admin: 06/26/16 10:41 Dose: 40 mg Hydrocortisone (Hytone 1% Cream -) 1 applic TP DAILY PRN PRN Reason: WOUND CARE Hydromorphone HCl (Dilaudid Injection -) 1 mg IVPB Q6H PRN Last Admin: 06/27/16 03:56 Dose: 1 mg Insulin Aspart (Novolog Vial Sliding Scale -) 1 vial SQ [facility] PRN Reason: Protocol Last Admin: 06/27/16 06:55 Dose: Not Given Insulin Detemir (Levemir Vial) 8 units SQ HS [facility] Last Admin: 06/26/16 22:46 Dose: Not Given Levetiracetam (Keppra -) 500 mg PO DAILY [facility] Last Admin: 06/26/16 10:41 Dose: 500 mg - Objective Vital Signs: Vital Signs Temperature 97.8 F 06/26/16 18:07 Pulse Rate 72 06/27/16 05:53 Respiratory Rate 18 06/27/16 05:53 Blood Pressure 114/63 06/27/16 05:53 O2 Sat by Pulse Oximetry (%) 98 06/26/16 21:00 Constitutional: Yes: No Distress Cardiovascular: Yes: Regular Rate and Rhythm Respiratory: Yes: Other (right basilar rales) Gastrointestinal: Yes: Soft Edema: Yes Edema: LLE: 1+ (improved), RLE: 1+ (improved) Neurological: Yes: Alert, Oriented ...Motor Strength: WNL Labs: CBC, BMP 06/27/16 08:00 06/27/16 08:00 INR, PTT INR 1.34 (0.82-1.09) H 06/24/16 06:20 Microbiology 06/26/16 08:00 Blood - Peripheral Venous Blood Culture - Preliminary NO GROWTH OBTAINED AFTER 24 HOURS, INCUBATION TO CONTINUE FOR 4 DAYS. 06/26/16 08:00 Blood - Peripheral Venous Blood Culture - Preliminary NO GROWTH OBTAINED AFTER 24 HOURS, INCUBATION TO CONTINUE FOR 4 DAYS. Laboratory Tests 06/27/16 06/27/16 08:00 08:00 WBC 5.0 Hgb 8.8 L Plt Count 137 Sodium 142 Potassium 4.1 BUN 28 H Creatinine 2.4 H Magnesium 1.8 Assessment/Plan Assessment/Plan 61 year old man with a history of HTN, HLD, CAD s/p CABG, ICM with chronic systolic CHF and multiple prior exacerbations, PAD with amputations, CKD, Anemia , noticed a rash as outpatient a few weeks ago, he stopped all of his medications, he presumed it was due to lasix and he was prescribed ethacrynic acid but he did not start taking it. Has been off all meds for approx 2 weeks. comes in now with c/o chest tightness, sob, edema found to be bacteremic. SOB/Edema-acute on chronic systolic CHF in the setting of medication non- adherence, CKD -unclear if Lasix truly was the source of rash, rash has not recurred while on IV Lasix here -Derm eval noted -cont Lasix 40mg IV today and switch to oral in AM: lung exam improving and LE edema also seems improved -echo 03/2016 showed mildly reduced LV function with apical akinesis -cont coreg -not on CRISTHIAN-I/ARB due to CKD Chest pain-known CAD s/p CABG -cardiac enzymes flat -cont Plavix, Coreg -pt has opted for medical therapy for now for his presumed progression of CAD given risk of worsening renal function, progression to HD, and due to anemia and guaiac + stool Bacteremia: As per ID
[2016-06-27] MEDS ORDERED: PT OWN MED DRAWER 7, Y5N ONE (10:45)
[2016-06-27] MEDS: CLOPIDOGREL BISULFATE 75 MG TABLET (FP) PO SCH (10:47)
[2016-06-27] MEDS: CARVEDILOL 12.5 MG TABLET (FP) PO SCH ×2 (10:48→21:53)
[2016-06-27] MEDS: COLLAGENASE CLOSTRIDIUM HIST. 30 GRAMS TUBE TP SCH (10:49)
[2016-06-27] MEDS: FUROSEMIDE 40 MG/4 ML INJECTABLE VIAL IVPB SCH (10:49)
[2016-06-27] MEDS: levETIRAcetam 500 MG TABLET (FP) PO SCH (10:49)
[2016-06-27] MEDS: DIVALPROEX SODIUM 250 MG TABLET E.C. (FP) PO SCH ×2 (10:49→21:55)
--- NOTE | 2016-06-27 11:25 | PN ---
Progress Note, Physician Chief Complaint: ID Got Vancom yesterday but micro now not sure if in fact this MRSA St Epi ( 1 bottle) or mixed culture - Current Medication List Current Medications: Active Medications Acetaminophen (Tylenol -) 650 mg PO Q6H PRN PRN Reason: FEVER OR PAIN Atorvastatin Calcium (Lipitor -) 20 mg PO HS [facility] Last Admin: 06/26/16 22:46 Dose: Not Given Carvedilol (Coreg -) 12.5 mg PO BID [facility] Last Admin: 06/27/16 10:48 Dose: 12.5 mg Clopidogrel Bisulfate (Plavix -) 75 mg PO DAILY [facility] Last Admin: 06/27/16 10:47 Dose: 75 mg Collagenase (Santyl -) 1 applic TP DAILY [facility] Last Admin: 06/27/16 10:49 Dose: 1 applic Divalproex Sodium (Depakote -) 250 mg PO BID [facility] Last Admin: 06/27/16 10:49 Dose: Not Given Furosemide (Lasix Injection -) 40 mg IVPB DAILY [facility] Last Admin: 06/27/16 10:49 Dose: 40 mg Hydrocortisone (Hytone 1% Cream -) 1 applic TP DAILY PRN PRN Reason: WOUND CARE Hydromorphone HCl (Dilaudid Injection -) 1 mg IVPB Q6H PRN Last Admin: 06/27/16 03:56 Dose: 1 mg Insulin Aspart (Novolog Vial Sliding Scale -) 1 vial SQ [facility] PRN Reason: Protocol Last Admin: 06/27/16 06:55 Dose: Not Given Insulin Detemir (Levemir Vial) 8 units SQ HS [facility] Last Admin: 06/26/16 22:46 Dose: Not Given Levetiracetam (Keppra -) 500 mg PO DAILY [facility] Last Admin: 06/27/16 10:49 Dose: Not Given - Objective Vital Signs: Vital Signs Temperature 97.8 F 06/26/16 18:07 Pulse Rate 72 06/27/16 05:53 Respiratory Rate 18 06/27/16 05:53 Blood Pressure 114/63 06/27/16 05:53 O2 Sat by Pulse Oximetry (%) 98 06/26/16 21:00 Constitutional: Yes: No Distress Neck: Yes: WNL, Supple Cardiovascular: Yes: S1, S2 Respiratory: Yes: WNL, Regular, CTA Bilaterally Gastrointestinal: Yes: WNL, Normal Bowel Sounds. No: Tenderness Extremities: Yes: Other (Dressing LLE) Labs: CBC, BMP 06/27/16 08:00 06/27/16 08:00 INR, PTT INR 1.34 (0.82-1.09) H 06/24/16 06:20 Assessment/Plan Microbiology 06/25/16 16:54 Foot - Left Dorsum Wound Culture - Preliminary Pending Organism 06/22/16 20:06 Blood - Peripheral Venous Blood Culture - Preliminary NO GROWTH OBTAINED AFTER 96 HOURS, INCUBATION TO CONTINUE FOR 1 DAYS. Laboratory Tests 06/26/16 06/27/16 06/27/16 06:00 08:00 08:00 WBC 5.0 Hgb 8.8 L Hct 26.3 L Plt Count 137 BUN 28 H Creatinine 2.4 H Random Vancomycin 13.547 Assessment Unclear at this time significance of the 1 positive bottle staph Plan Will await micro final reports Hopefully we can stop antibiotics Binta DAVIDSON
--- NOTE | 2016-06-27 11:47 | PN ---
Progress Note (short form) - Note Progress Note: PULMONARY Breathing continues to improve. +nonproductive cough. Tolerating IV lasix, no new rashes, fevers. Last Vital Signs Temp Pulse Resp BP Pulse Ox 97.8 F 72 18 114/63 98 06/26/16 18:07 06/27/16 05:53 06/27/16 05:53 06/27/16 05:53 06/26/16 21:00 Gen: NAD at rest Heart: RRR Lung: scattered basilar rales Abd: soft, nontender Ext: + edema improving CBC, BMP 06/27/16 08:00 06/27/16 08:00 Active Medications Acetaminophen (Tylenol -) 650 mg PO Q6H PRN PRN Reason: FEVER OR PAIN Atorvastatin Calcium (Lipitor -) 20 mg PO HS [facility] Last Admin: 06/26/16 22:46 Dose: Not Given Carvedilol (Coreg -) 12.5 mg PO BID [facility] Last Admin: 06/27/16 10:48 Dose: 12.5 mg Clopidogrel Bisulfate (Plavix -) 75 mg PO DAILY [facility] Last Admin: 06/27/16 10:47 Dose: 75 mg Collagenase (Santyl -) 1 applic TP DAILY [facility] Last Admin: 06/27/16 10:49 Dose: 1 applic Divalproex Sodium (Depakote -) 250 mg PO BID [facility] Last Admin: 06/27/16 10:49 Dose: Not Given Furosemide (Lasix Injection -) 40 mg IVPB DAILY [facility] Last Admin: 06/27/16 10:49 Dose: 40 mg Hydrocortisone (Hytone 1% Cream -) 1 applic TP DAILY PRN PRN Reason: WOUND CARE Hydromorphone HCl (Dilaudid Injection -) 1 mg IVPB Q6H PRN Last Admin: 06/27/16 03:56 Dose: 1 mg Insulin Aspart (Novolog Vial Sliding Scale -) 1 vial SQ [facility] PRN Reason: Protocol Last Admin: 06/27/16 06:55 Dose: Not Given Insulin Detemir (Levemir Vial) 8 units SQ HS [facility] Last Admin: 06/26/16 22:46 Dose: Not Given Levetiracetam (Keppra -) 500 mg PO DAILY [facility] Last Admin: 06/27/16 10:49 Dose: Not Given A/P Acute on Chronic LV Systolic Heart Failure Acute on Chronic Renal Failure CAD s/p CABG HTN DM PAD - continue IV lasix - monitor urine output, creatinine - daily weights, I/Os - monitor for rash - O2 as needed - DVT prophylaxis - PT
--- NOTE | 2016-06-27 13:22 | PN ---
Progress Note, Physician Chief Complaint: patient got iv lasix today refusing echo and MRI - Current Medication List Current Medications: Active Medications Acetaminophen (Tylenol -) 650 mg PO Q6H PRN PRN Reason: FEVER OR PAIN Atorvastatin Calcium (Lipitor -) 20 mg PO HS [facility] Last Admin: 06/26/16 22:46 Dose: Not Given Carvedilol (Coreg -) 12.5 mg PO BID [facility] Last Admin: 06/27/16 10:48 Dose: 12.5 mg Clopidogrel Bisulfate (Plavix -) 75 mg PO DAILY [facility] Last Admin: 06/27/16 10:47 Dose: 75 mg Collagenase (Santyl -) 1 applic TP DAILY [facility] Last Admin: 06/27/16 10:49 Dose: 1 applic Divalproex Sodium (Depakote -) 250 mg PO BID [facility] Last Admin: 06/27/16 10:49 Dose: Not Given Furosemide (Lasix Injection -) 40 mg IVPB DAILY [facility] Last Admin: 06/27/16 10:49 Dose: 40 mg Hydrocortisone (Hytone 1% Cream -) 1 applic TP DAILY PRN PRN Reason: WOUND CARE Hydromorphone HCl (Dilaudid Injection -) 1 mg IVPB Q6H PRN Last Admin: 06/27/16 03:56 Dose: 1 mg Insulin Aspart (Novolog Vial Sliding Scale -) 1 vial SQ [facility] PRN Reason: Protocol Last Admin: 06/27/16 12:04 Dose: Not Given Insulin Detemir (Levemir Vial) 8 units SQ [facility] Last Admin: 06/26/16 22:46 Dose: Not Given Levetiracetam (Keppra -) 500 mg PO DAILY [facility] Last Admin: 06/27/16 10:49 Dose: Not Given - Objective Vital Signs: Vital Signs Temperature 97.8 F 06/26/16 18:07 Pulse Rate 72 06/27/16 05:53 Respiratory Rate 18 06/27/16 05:53 Blood Pressure 114/63 06/27/16 05:53 O2 Sat by Pulse Oximetry (%) 98 06/26/16 21:00 Constitutional: Yes: Calm Cardiovascular: Yes: Regular Rate and Rhythm, S1, S2 Respiratory: Yes: Rales Gastrointestinal: Yes: Normal Bowel Sounds, Soft Edema: (improving) Neurological: Yes: Alert, Oriented Labs: CBC, BMP 06/27/16 08:00 06/27/16 08:00 INR, PTT INR 1.34 (0.82-1.09) H 06/24/16 06:20 Problem List - Problems (1) Acute on chronic systolic (congestive) heart failure Assessment/Plan: cxr ordered today echo refused iv lasix for now monitor lytes and renal function if today cxr improves hen kodi change to po lasix tmw Code(s): I50.23 - ACUTE ON CHRONIC SYSTOLIC (CONGESTIVE) HEART FAILURE (2) Anemia Assessment/Plan: one unit of prbc h/h monitor Code(s): D64.9 - ANEMIA, UNSPECIFIED (3) 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 complication Assessment/Plan: bgm insulin Code(s): E11.29 - TYPE 2 DIABETES MELLITUS W OTH DIABETIC KIDNEY COMPLICATION (4) CAD (coronary artery disease) Assessment/Plan: plavix,statin,coreg Code(s): I25.10 - ATHSCL HEART DISEASE OF [place] CORONARY ARTERY W/O ANG PCTRS (5) Positive blood culture Assessment/Plan: awaiting final pathology go one dose vancomycin ID eval has h/o of bactermia in past Code(s): R78.81 - BACTEREMIA
--- NOTE | 2016-06-27 15:05 | PN ---
Progress Note (short form) - Note Progress Note: Renal Follow up for RUBY/CKD Pt seen and examined at the bedside has pain in both heels mild sob with exertion no chest pain, fever, chills, N/V/D Vital Signs Temperature 97.5 F L 06/27/16 10:00 Pulse Rate 68 06/27/16 10:00 Respiratory Rate 19 06/27/16 10:00 Blood Pressure 100/57 06/27/16 10:00 O2 Sat by Pulse Oximetry (%) 98 06/26/16 21:00 Intake & Output 06/24/16 06/25/16 06/26/16 06/27/16 23:59 23:59 23:59 23:59 Intake Total 360 490 760 530 Output Total 1400 1500 925 500 Balance -1040 -1010 -165 30 Gen: NAD, awake and alert CVS: RRR, No M/R Lungs: CTA, no rales or wheeze Abd: soft NT/ND Ext: b/l TMA, 2+ edema CBC, BMP 06/27/16 08:00 06/27/16 08:00 Laboratory Tests 06/27/16 08:00 Calcium 7.8 L Phosphorus 4.2 Magnesium 1.8 Current Medications Acetaminophen (Tylenol -) 650 mg PO Q6H PRN PRN Reason: FEVER OR PAIN Atorvastatin Calcium (Lipitor -) 20 mg PO HS [facility] Last Admin: 06/26/16 22:46 Dose: Not Given Carvedilol (Coreg -) 12.5 mg PO BID [facility] Last Admin: 06/27/16 10:48 Dose: 12.5 mg Clopidogrel Bisulfate (Plavix -) 75 mg PO DAILY [facility] Last Admin: 06/27/16 10:47 Dose: 75 mg Collagenase (Santyl -) 1 applic TP DAILY [facility] Last Admin: 06/27/16 10:49 Dose: 1 applic Divalproex Sodium (Depakote -) 250 mg PO BID [facility] Last Admin: 06/27/16 10:49 Dose: Not Given Furosemide (Lasix Injection -) 40 mg IVPB DAILY [facility] Last Admin: 06/27/16 10:49 Dose: 40 mg Hydrocortisone (Hytone 1% Cream -) 1 applic TP DAILY PRN PRN Reason: WOUND CARE Hydromorphone HCl (Dilaudid Injection -) 1 mg IVPB Q6H PRN Last Admin: 06/27/16 03:56 Dose: 1 mg Insulin Aspart (Novolog Vial Sliding Scale -) 1 vial SQ [facility] PRN Reason: Protocol Last Admin: 06/27/16 12:04 Dose: Not Given Insulin Detemir (Levemir Vial) 8 units SQ HS [facility] Last Admin: 06/26/16 22:46 Dose: Not Given Levetiracetam (Keppra -) 500 mg PO DAILY [facility] Last Admin: 06/27/16 10:49 Dose: Not Given A/P 51 year old Gentleman with PMhx of RUBY secondary to ATN (sepsis) with CKD, PVD s /p B/L TMA, DM, CAD s/p CABG, Hypertension who presented with complaints of LE swelling, sob/cough and diffuse rash with Cr of 2.1 #Recovering RUBY/CKD Renal function remains stable at this time continue Lasix as directed by cardiology #CHF/Edema On Lasix IV 40mg Daily Cardiology following edema improving Can consider switch to oral diuretics tomorrow Thank you Daniel Cid DO
[2016-06-27] MEDS: ATORVASTATIN CA 20 MG TABLET (FP) PO SCH (21:55)
[2016-06-27] MEDS: INSULIN DETEMIR 100 UNITS/ML MDV SQ SCH (21:55)
[2016-06-28] MEDS: ZOLPIDEM TARTRATE 5 MG TABLET PO PRN (01:17)
[2016-06-28] MEDS: INSULIN SLIDING SCALE (NOVOLOG) 1 VIAL SQ SCH ×4 (06:33→22:09)
--- NOTE | 2016-06-28 09:18 | PN ---
Progress Note, Physician - Current Medication List Current Medications: Active Medications Acetaminophen (Tylenol -) 650 mg PO Q6H PRN PRN Reason: FEVER OR PAIN Atorvastatin Calcium (Lipitor -) 20 mg PO HS [facility] Last Admin: 06/27/16 21:55 Dose: Not Given Carvedilol (Coreg -) 12.5 mg PO BID [facility] Last Admin: 06/27/16 21:53 Dose: 12.5 mg Clopidogrel Bisulfate (Plavix -) 75 mg PO DAILY [facility] Last Admin: 06/27/16 10:47 Dose: 75 mg Collagenase (Santyl -) 1 applic TP DAILY [facility] Last Admin: 06/27/16 10:49 Dose: 1 applic Divalproex Sodium (Depakote -) 250 mg PO BID [facility] Last Admin: 06/27/16 21:55 Dose: Not Given Furosemide (Lasix -) 80 mg PO DAILY [facility] Hydrocortisone (Hytone 1% Cream -) 1 applic TP DAILY PRN PRN Reason: WOUND CARE Insulin Aspart (Novolog Vial Sliding Scale -) 1 vial SQ [facility] PRN Reason: Protocol Last Admin: 06/28/16 06:33 Dose: Not Given Insulin Detemir (Levemir Vial) 8 units SQ HS [facility] Last Admin: 06/27/16 21:55 Dose: Not Given Levetiracetam (Keppra -) 500 mg PO DAILY [facility] Last Admin: 06/27/16 10:49 Dose: Not Given Zolpidem Tartrate (Ambien -) 5 mg PO HS [facility] Last Admin: 06/28/16 01:17 Dose: 5 mg - Objective Vital Signs: Vital Signs Temperature 97.5 F L 06/27/16 10:00 Pulse Rate 80 06/28/16 06:00 Respiratory Rate 20 06/28/16 06:00 Blood Pressure 115/63 06/28/16 06:00 O2 Sat by Pulse Oximetry (%) 98 06/27/16 21:00 Neck: Yes: Supple Cardiovascular: Yes: Regular Rate and Rhythm Respiratory: Yes: Rales (at the bases) Gastrointestinal: Yes: Normal Bowel Sounds, Soft Labs: CBC, BMP 06/27/16 08:00 06/28/16 06:00 INR, PTT INR 1.34 (0.82-1.09) H 06/24/16 06:20 Assessment/Plan - Problems (1) Acute on chronic systolic (congestive) heart failure Assessment/Plan: cxr ordered today pt refused echo refused iv lasix to po monitor lytes and renal function Code(s): I50.23 - ACUTE ON CHRONIC SYSTOLIC (CONGESTIVE) HEART FAILURE (2) Anemia Assessment/Plan: one unit of prbc h/h monitor Code(s): D64.9 - ANEMIA, UNSPECIFIED (3) 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 complication Assessment/Plan: bgm insulin Code(s): E11.29 - TYPE 2 DIABETES MELLITUS W OTH DIABETIC KIDNEY COMPLICATION (4) CAD (coronary artery disease) Assessment/Plan: plavix,statin,coreg Code(s): I25.10 - ATHSCL HEART DISEASE OF [place] CORONARY ARTERY W/O ANG PCTRS (5) Positive blood culture Assessment/Plan: awaiting final pathology got one dose vancomycin ID eval has h/o of bactermia in past Code(s): R78.81 - BACTEREMIA
--- NOTE | 2016-06-28 09:23 | PN ---
Progress Note (short form) - Note Progress Note: Cardiology Microbiology 06/26/16 08:00 Blood - Peripheral Venous Blood Culture - Preliminary NO GROWTH OBTAINED AFTER 48 HOURS, INCUBATION TO CONTINUE FOR 3 DAYS. 06/26/16 08:00 Blood - Peripheral Venous Blood Culture - Preliminary NO GROWTH OBTAINED AFTER 48 HOURS, INCUBATION TO CONTINUE FOR 3 DAYS. Selected Entries 06/28/16 06:00 Pulse Rate 80 Blood Pressure 115/63 Laboratory Tests 06/27/16 06/28/16 08:00 06:00 WBC 5.0 Hgb 8.8 L Hct 26.3 L Plt Count 137 Potassium 4.0 Chloride 106 Creatinine Pending Exam: Alert. Denies chest pain Edema of LE stable, 1+ but overall improved Chest: slight decreased breath sounds at bases b/l CV: Sinus rhythm IMP/PLAN: 61 year old man with a history of HTN, HLD, CAD s/p CABG, ICM with chronic systolic CHF and multiple prior exacerbations, PAD with amputations, CKD, Anemia , noticed a rash as outpatient a few weeks ago, he stopped all of his medications, he presumed it was due to lasix and he was prescribed ethacrynic acid but he did not start taking it. Has been off all meds for approx 2 weeks. Admitted last weekend with c/o chest tightness, sob, edema found to be bacteremic. SOB/Edema-acute on chronic systolic CHF in the setting of medication non- adherence, CKD -unclear if Lasix truly was the source of rash, rash has not recurred while on IV Lasix here -Derm eval noted -D/W Dr. Rios. Clinically improved, can switch to PO Lasix. -echo 03/2016 showed mildly reduced LV function with apical akinesis -cont coreg -not on CRISTHIAN-I/ARB due to CKD Chest pain-known CAD s/p CABG -cardiac enzymes flat -cont Plavix, Coreg -pt has opted for medical therapy for now for his presumed progression of CAD given risk of worsening renal function, progression to HD, and due to anemia and guaiac + stool Bacteremia: As per ID
[2016-06-28 09:27] LABS: CALCIUM 7.7 mg/dL (8.5-10.1); CREATININE 2.2 mg/dL (0.7-1.3); MAGNESIUM 1.6 mg/dL (1.8-2.4); PHOSPHOROUS 3.8 mg/dL (2.5-4.9)
[2016-06-28] MEDS ORDERED: PT OWN MED DRAWER 7, Y5N ONE (10:24)
[2016-06-28] MEDS: FUROSEMIDE 40 MG TABLET (FP) PO SCH (10:31)
[2016-06-28] MEDS: DIVALPROEX SODIUM 250 MG TABLET E.C. (FP) PO SCH ×2 (10:31→22:09)
[2016-06-28] MEDS: CARVEDILOL 12.5 MG TABLET (FP) PO SCH ×2 (10:31→22:09)
[2016-06-28] MEDS: CLOPIDOGREL BISULFATE 75 MG TABLET (FP) PO SCH (10:31)
[2016-06-28] MEDS: levETIRAcetam 500 MG TABLET (FP) PO SCH (10:31)
--- NOTE | 2016-06-28 15:10 | PN ---
Progress Note (short form) - Note Progress Note: no complaints Vital Signs Period Temp Pulse Resp BP Sys/Mejia Pulse Ox Last 24 Hr 74-80 18-20 112-121/60-68 96-98 cor-rrr lungs clear abd soft,nt ext chronic foot ulcer CBC, BMP 06/27/16 08:00 06/28/16 06:00 Microbiology 06/25/16 16:54 Foot - Left Dorsum Gram Stain - Final 06/25/16 16:54 Foot - Left Dorsum Wound Culture - Preliminary Non Lactose Fermenting Gnb 06/22/16 20:06 Blood - Peripheral Venous Blood Culture - Final Staphylococcus Epidermidis#2 06/26/16 08:00 Blood - Peripheral Venous Blood Culture - Preliminary NO GROWTH OBTAINED AFTER 48 HOURS, INCUBATION TO CONTINUE FOR 3 DAYS. 06/26/16 08:00 Blood - Peripheral Venous Blood Culture - Preliminary NO GROWTH OBTAINED AFTER 48 HOURS, INCUBATION TO CONTINUE FOR 3 DAYS. 06/22/16 20:06 Blood - Peripheral Venous Blood Culture - Final NO GROWTH AFTER 5 DAYS INCUBATION 06/23/16 00:43 Urine For Antigen Detection Legionella Antigen - Final 06/23/16 00:43 Urine For Antigen Detection Streptococcus pneumoniae Antigen (M - Final a/p blood culture is contaminant no need to treat he has chronic leg wound being followed by podiatry diabetes cad medication noncompliance please call back if needed
--- NOTE | 2016-06-28 15:32 | PN ---
Progress Note (short form) - Note Progress Note: Renal Follow up for RUBY/CKD Pt seen and examined at the bedside no complaints at this time denies sob, chest pain, fever, chills, N/V/D Vital Signs Temperature 97.5 F L 06/27/16 10:00 Pulse Rate 80 06/28/16 10:00 Respiratory Rate 18 06/28/16 10:00 Blood Pressure 115/60 06/28/16 10:00 O2 Sat by Pulse Oximetry (%) 96 06/28/16 09:00 Intake & Output 06/25/16 06/26/16 06/27/16 06/28/16 23:59 23:59 23:59 23:59 Intake Total 490 760 730 100 Output Total 6288 385 0716 Balance -1010 -165 -645 100 Gen: NAD, awake and alert CVS: RRR, No M/R Lungs: CTA, no rales or wheeze Abd: soft NT/ND Ext: b/l TMA, 2+ edema CBC, BMP 06/27/16 08:00 06/28/16 06:00 Current Medications Acetaminophen (Tylenol -) 650 mg PO Q6H PRN PRN Reason: FEVER OR PAIN Atorvastatin Calcium (Lipitor -) 20 mg PO HS [facility] Last Admin: 06/27/16 21:55 Dose: Not Given Carvedilol (Coreg -) 12.5 mg PO BID [facility] Last Admin: 06/28/16 10:31 Dose: 12.5 mg Clopidogrel Bisulfate (Plavix -) 75 mg PO DAILY [facility] Last Admin: 06/28/16 10:31 Dose: 75 mg Collagenase (Santyl -) 1 applic TP DAILY [facility] Last Admin: 06/27/16 10:49 Dose: 1 applic Divalproex Sodium (Depakote -) 250 mg PO BID [facility] Last Admin: 06/28/16 10:31 Dose: Not Given Furosemide (Lasix -) 80 mg PO DAILY [facility] Last Admin: 06/28/16 10:31 Dose: 80 mg Hydrocortisone (Hytone 1% Cream -) 1 applic TP DAILY PRN PRN Reason: WOUND CARE Insulin Aspart (Novolog Vial Sliding Scale -) 1 vial SQ [facility] PRN Reason: Protocol Last Admin: 06/28/16 12:15 Dose: Not Given Insulin Detemir (Levemir Vial) 8 units SQ HS [facility] Last Admin: 06/27/16 21:55 Dose: Not Given Levetiracetam (Keppra -) 500 mg PO DAILY [facility] Last Admin: 06/28/16 10:31 Dose: Not Given Zolpidem Tartrate (Ambien -) 5 mg PO HS [facility] Last Admin: 06/28/16 01:17 Dose: 5 mg A/P 51 year old Gentleman with PMhx of RUBY secondary to ATN (sepsis) with CKD, PVD s /p B/L TMA, DM, CAD s/p CABG, Hypertension who presented with complaints of LE swelling, sob/cough and diffuse rash with Cr of 2.1 #Recovering RUBY/CKD Renal function stable and improved good urine output no indication for WET WHEELER would continue to avoid ARB/ACEi at this time Agree with Oral Lasix Trend BUN/Cr can be followed as outpatient #CHF/Edema Edema improved on Oral lasix Cardiology following Thank you Daniel Cid DO
[2016-06-28] MEDS: COLLAGENASE CLOSTRIDIUM HIST. 30 GRAMS TUBE TP SCH (16:27)
--- NOTE | 2016-06-28 16:55 | PN ---
Progress Note (short form) - Note Progress Note: PULMONARY RESTING COMFORTABLY IN BED SPO2 96% R/A VSS/AFEBRILE ANICTERIC DIMINISHED BREATH SOUNDS LEFT BASE S1S2 RSR BS+ DIMINISHED EDEMA LABS/MEDS/NOTES/IMAGING/MICRO/MEDS REVIEWED Acute on Chronic LV Systolic Heart Failure Acute on Chronic Renal Failure CAD s/p CABG HTN DM PAD - continue IV lasix - monitor urine output, creatinine - daily weights, I/Os - monitor for rash - O2 as needed - DVT prophylaxis - PT Larissa HUSSEIN MD
[2016-06-28] MEDS: INSULIN DETEMIR 100 UNITS/ML MDV SQ SCH (22:09)
[2016-06-28] MEDS: ATORVASTATIN CA 20 MG TABLET (FP) PO SCH (22:09)
[2016-06-29] MEDS: ZOLPIDEM TARTRATE 5 MG TABLET PO PRN (02:28)
[2016-06-29] MEDS: INSULIN SLIDING SCALE (NOVOLOG) 1 VIAL SQ SCH ×2 (06:13→12:47)
[2016-06-29 08:05] LABS: CALCIUM 7.7 mg/dL (8.5-10.1); CREATININE 2.3 mg/dL (0.7-1.3)
--- NOTE | 2016-06-29 09:46 | DS ---
Physical Examination Vital Signs: Vital Signs Temperature 97.5 F L 06/27/16 10:00 Pulse Rate 78 06/28/16 22:00 Respiratory Rate 18 06/28/16 22:00 Blood Pressure 112/63 06/28/16 22:00 O2 Sat by Pulse Oximetry (%) 96 06/28/16 21:00 Cardiovascular: Yes: Regular Rate and Rhythm Respiratory: Yes: Regular, CTA Bilaterally Gastrointestinal: Yes: Normal Bowel Sounds, Soft Labs: CBC, BMP 06/27/16 08:00 06/29/16 06:00 Discharge Summary Reason For Visit: CHEST PAIN,ACUTE CHRONIC SYSTOLIC CHF Current Active Problems Acute kidney failure (Acute) Acute on chronic systolic (congestive) heart failure (Acute) Cellulitis and abscess of foot (Acute) Chest pain (Acute) Chronic kidney disease (CKD) stage G3a/A2, moderately decreased glomerular filtration rate (GFR) between 45-59 mL/min/1.73 square meter and albuminuria creatinine ratio between 30-299 mg/g (Acute) Dyspnea (Acute) Glaucoma (Acute) Hyphema (Acute) Positive blood culture (Acute) 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 complication (Acute) CHF (congestive heart failure) (Chronic) Osteomyelitis (Chronic) Hospital Course: History of Present Illness: The patient is a 61 year old male with a significant past medical history of HTN , HLD, diabetes,cardiac bypass (2008), stents x5, right foot toes amputation, LASIK eye surgery who is arrived to the Emergency Department via EMS with complaints of chest tightness and allergic reaction to medications. Pt reports experiencing rash on his arms, which he believes might be due to water pills that he takes. Pt was seen in the ER on 05/31 when he was experiencing the same upper extremities rash. He also reports experiencing chest tightness and SOB due to anxiety. Pt was seen in [facility] last week for arms rash and swelling, got discharged on Friday. He denies fever, chills, abdominal pain, nausea, vomiting, diarrhea, headache, dizziness. SH:non smoker. No EtOH use ALL: banana History Source: Patient, Medical Record - Past Medical History [employer]: Yes: Peripheral Neuropathy Cardiovascular: Yes: CAD (CABG 2008., stents x5), CHF, HTN Pulmonary: Yes: COPD Gastrointestinal: Yes: Constipation Endocrine: Yes: Diabetes Mellitus - Past Surgical History Past Surgical History: Yes: Amputation (left TMT, right 1st and 2nd toes), CABG (2009 at [facility]) - Problems (1) Acute on chronic systolic (congestive) heart failure Assessment/Plan: cxr ordered today pt refused echo refused iv lasix to po monitor lytes and renal function Code(s): I50.23 - ACUTE ON CHRONIC SYSTOLIC (CONGESTIVE) HEART FAILURE (2) Anemia Assessment/Plan: one unit of prbc h/h monitor Code(s): D64.9 - ANEMIA, UNSPECIFIED (3) 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 complication Assessment/Plan: bgm insulin Code(s): E11.29 - TYPE 2 DIABETES MELLITUS W OTH DIABETIC KIDNEY COMPLICATION (4) CAD (coronary artery disease) Assessment/Plan: plavix,statin,coreg Code(s): I25.10 - ATHSCL HEART DISEASE OF [place] CORONARY ARTERY W/O ANG PCTRS (5) Positive blood culture Assessment/Plan: awaiting final pathology got one dose vancomycin ID eval NOTED--NO ABX has h/o of bactermia in past Code(s): R78.81 - BACTEREMIA Condition: Improved - Instructions Diet, Activity, Other Instructions: MELATONIN 5 MG AT BEDTIME Disposition: VNS/HOME HEALTH CARE - Home Medications Comprehensive Discharge Medication List: Ambulatory Orders Acetaminophen 325 mg PO Q6H PRN 06/22/16 Ascorbate Calcium [Vitamin C] 500 mg PO DAILY 06/22/16 Calcitriol [Calcitriol -] 0.25 mcg PO DAILY 06/22/16 Carvedilol [Coreg] 12.5 mg PO DAILY 06/22/16 Citalopram Hydrobromide [Citalopram HBr] 20 mg PO DAILY 06/22/16 Clopidogrel Bisulfate [Clopidogrel] 75 mg PO DAILY 06/22/16 Divalproex [Depakote -] 250 mg PO BID 06/22/16 Insulin Glargine,Hum.rec.anlog [Lantus (10mL VIAL) -] 6 units SQ HS 06/22/16 Insulin Lispro [Humalog] 2 unit SQ TID 06/22/16 Levetiracetam [Keppra Xr -] 500 mg PO DAILY 06/22/16 Sevelamer HCl [Renagel] 800 mg PO TID 06/22/16 Atorvastatin Ca [Lipitor] 20 mg PO HS #30 tablet 06/29/16 Furosemide [Lasix -] 80 mg PO DAILY #60 tablet 06/29/16
[2016-06-29] MEDS: FUROSEMIDE 40 MG TABLET (FP) PO SCH (10:41)
[2016-06-29] MEDS: CARVEDILOL 12.5 MG TABLET (FP) PO SCH (10:41)
[2016-06-29] MEDS: DIVALPROEX SODIUM 250 MG TABLET E.C. (FP) PO SCH (10:41)
[2016-06-29] MEDS: CLOPIDOGREL BISULFATE 75 MG TABLET (FP) PO SCH (10:41)
[2016-06-29] MEDS: levETIRAcetam 500 MG TABLET (FP) PO SCH (10:41)
[2016-06-29] MEDS: COLLAGENASE CLOSTRIDIUM HIST. 30 GRAMS TUBE TP SCH (10:42)
--- NOTE | 2016-06-29 12:09 | PN ---
Progress Note (short form) - Note Progress Note: Renal Follow up for RUBY/CKD Pt seen and examined at the bedside no complaints at this time for discharge today Vital Signs Temperature 97.5 F L 06/27/16 10:00 Pulse Rate 78 06/28/16 22:00 Respiratory Rate 18 06/28/16 22:00 Blood Pressure 112/63 06/28/16 22:00 O2 Sat by Pulse Oximetry (%) 96 06/28/16 21:00 Intake & Output 06/26/16 06/27/16 06/28/16 06/29/16 23:59 23:59 23:59 23:59 Intake Total 760 730 100 370 Output Total 925 1375 600 300 Balance -165 -351 -500 70 Gen: NAD, awake and alert CVS: RRR, No M/R Lungs: CTA, no rales or wheeze Abd: soft NT/ND Ext: b/l TMA, 2+ edema CBC, BMP 06/27/16 08:00 06/29/16 06:00 Current Medications Acetaminophen (Tylenol -) 650 mg PO Q6H PRN PRN Reason: FEVER OR PAIN Atorvastatin Calcium (Lipitor -) 20 mg PO HS [facility] Last Admin: 06/28/16 22:09 Dose: Not Given Carvedilol (Coreg -) 12.5 mg PO BID [facility] Last Admin: 06/29/16 10:41 Dose: 12.5 mg Clopidogrel Bisulfate (Plavix -) 75 mg PO DAILY [facility] Last Admin: 06/29/16 10:41 Dose: 75 mg Collagenase (Santyl -) 1 applic TP DAILY [facility] Last Admin: 06/29/16 10:42 Dose: 1 applic Divalproex Sodium (Depakote -) 250 mg PO BID [facility] Last Admin: 06/29/16 10:41 Dose: Not Given Furosemide (Lasix -) 80 mg PO DAILY [facility] Last Admin: 06/29/16 10:41 Dose: 80 mg Hydrocortisone (Hytone 1% Cream -) 1 applic TP DAILY PRN PRN Reason: WOUND CARE Insulin Aspart (Novolog Vial Sliding Scale -) 1 vial SQ [facility] PRN Reason: Protocol Last Admin: 06/29/16 06:13 Dose: Not Given Insulin Detemir (Levemir Vial) 8 units SQ HS [facility] Last Admin: 06/28/16 22:09 Dose: Not Given Levetiracetam (Keppra -) 500 mg PO DAILY [facility] Last Admin: 06/29/16 10:41 Dose: Not Given Zolpidem Tartrate (Ambien -) 5 mg PO HS PRN Last Admin: 06/29/16 02:28 Dose: 5 mg A/P 51 year old Gentleman with PMhx of RUBY secondary to ATN (sepsis) with CKD, PVD s /p B/L TMA, DM, CAD s/p CABG, Hypertension who presented with complaints of LE swelling, sob/cough and diffuse rash with Cr of 2.1 #Recovering RUBY/CKD Renal function stable continue oral diuretics avoid nsaids, phos based enemas, IV contrast to follow up in the office in 1-2 week with repeat labs #CHF/Edema Edema improved on Oral lasix Cardiology following Thank you Daniel Cid DO
[2016-06-29 12:10] VITALS: BP 122/67; PULSE 73; TEMP 97.9
== END 2016-06-29 14:36 | disposition home or self-care (01) | DRG 264 ==
LOC: JER 18:57 → JERBED 21:24 → UNDOADMIN 21:24 → JERBED 22:47 → J7W 06-23 13:18
PROVIDERS: ADMIT Family Medicine; ATTEND Family Medicine
PROC: 30233N1 Transfusion of Nonautologous Red Blood Cells into Peripheral Vein, Percutaneous Approach (ICD-10-PCS; 2016-06-25)
PROC: 0JBR0ZZ Excision of Left Foot Subcutaneous Tissue and Fascia, Open Approach (ICD-10-PCS; principal; 2016-06-26)
PROC: 0JBQ0ZZ Excision of Right Foot Subcutaneous Tissue and Fascia, Open Approach (ICD-10-PCS; 2016-06-26)
DX: I13.0 Hypertensive heart and chronic kidney disease with heart failure and stage 1 through stage 4 chronic kidney disease, or unspecified chronic kidney disease (principal); I50.23 Acute on chronic systolic (congestive) heart failure; R78.81 Bacteremia; N17.9 Acute kidney failure, unspecified; R07.9 Chest pain, unspecified; E11.29 Type 2 diabetes mellitus with other diabetic kidney complication; E11.40 Type 2 diabetes mellitus with diabetic neuropathy, unspecified; Z91.14 Patient's other noncompliance with medication regimen; E78.5 Hyperlipidemia, unspecified; H40.9 Unspecified glaucoma; D64.9 Anemia, unspecified; I25.10 Atherosclerotic heart disease of native coronary artery without angina pectoris; Z98.61 Coronary angioplasty status; Z95.1 Presence of aortocoronary bypass graft; I73.9 Peripheral vascular disease, unspecified; R21 Rash and other nonspecific skin eruption; N18.3 Chronic kidney disease, stage 3 (moderate); I25.5 Ischemic cardiomyopathy; L97.529 Non-pressure chronic ulcer of other part of left foot with unspecified severity; E11.621 Type 2 diabetes mellitus with foot ulcer; E83.39 Other disorders of phosphorus metabolism; L97.519 Non-pressure chronic ulcer of other part of right foot with unspecified severity
CPT/HCPCS: 11042; 11045; 36415; 36430; 71010-TC; 71020-TC; 80048; 80053; 82550; 83735; 83880; 84100; 84484; 85025; 85027; 85610; 86140; 86850; 86900; 86901; 86922; 87040; 87070; 87186; 87205; 87899; 93005; 93010; 97116-GP; 97161-GP; 99285-25; G0480; P9038; P9058

== ENCOUNTER 2016-07-10 10:15 | Inpatient (IN) | payer OTHER ==
--- NOTE | 2016-07-10 11:12 | PDOC ---
History of Present Illness - General Chief Complaint: Edema Stated Complaint: SOB, WATER BUILD UP (CHEST, LEGS) Time Seen by Provider: 07/10/16 11:04 - History of Present Illness Initial Comments: 07/10/16 11:11 CHIEF COMPLAINT: HISTORY OF PRESENT ILLNESS: This is a 61 year old male with HTN, HLD, CAD s/p CABG, ICM with chronic systolic CHF and multiple prior exacerbations, PAD with amputations, CKD, and anemia, most recently discharged from the hospital on after being treated for chest pain and CHF as well as debridement of foot wounds. He presents again today stating that he is feeling short of breath ( worse on exertion) with intermittent chest pain that does not seem related to exertion. V/s on arrival are notable for RR 28. PCP is Dr. Rios. GENERAL/CONSTITUTIONAL: No fever or chills. No weakness. No weight change. HEAD, EYES, EARS, NOSE AND THROAT: No change in vision. No ear pain or discharge. No sore throat. CARDIOVASCULAR: See HPI. RESPIRATORY: No cough or wheezing. GASTROINTESTINAL:Nausea, vomiting x 1. "Gas." No diarrhea or constipation. GENITOURINARY: No dysuria, frequency, or change in urination. MUSCULOSKELETAL: No joint or muscle swelling or pain. No neck or back pain. SKIN: No rash or easy bruising. NEUROLOGIC: No headache, vertigo, loss of consciousness, or loss of sensation. PSYCHIATRIC: No depression or anxiety. ENDOCRINE: No increased thirst. No abnormal weight change. HEMATOLOGIC/LYMPHATIC: No anemia, easy bleeding, or history of blood clots. ALLERGIC/IMMUNOLOGIC: No hives or skin allergy. No latex allergy. PHYSICAL EXAM: GENERAL: The patient is awake, alert, and fully oriented, in no acute distress. HEAD: Normal with no signs of trauma. ENT: Pupils equal, round and reactive to light, extraocular movements intact, sclera anicteric, conjunctiva clear. Neck supple. LUNGS: Clear to auscultation bilaterally. Normal excursion. No respiratory distress or use of accessory muscles. CV: Soft systolic mumur. RRR, S1/S2. Cap refill < 2 sec. ABDOMEN: Soft, non-distended, non-tender even to deep . EXTREMITIES: Normal range of motion. 2+ pitting LE edema bilaterally. Toes surgically absent. NEUROLOGICAL: Normal speech. CN II-XII grossly intact. PSYCH: Normal mood, normal affect. SKIN: Warm, dry, normal turgor, no rashes or lesions noted. Past History - Past Medical History Allergies/Adverse Reactions: Allergies Allergy/AdvReac Type Severity Reaction Status Date / Time banana Allergy Verified 07/10/16 10:42 No Known Drug Allergies Allergy Verified 07/10/16 10:42 Home Medications: Ambulatory Orders Acetaminophen 325 mg PO Q6H PRN 06/22/16 Ascorbate Calcium [Vitamin C] 500 mg PO DAILY 06/22/16 Calcitriol [Calcitriol -] 0.25 mcg PO DAILY 06/22/16 Carvedilol [Coreg] 12.5 mg PO DAILY 06/22/16 Citalopram Hydrobromide [Citalopram HBr] 20 mg PO DAILY 06/22/16 Clopidogrel Bisulfate [Clopidogrel] 75 mg PO DAILY 06/22/16 Divalproex [Depakote -] 250 mg PO BID 06/22/16 Insulin Glargine,Hum.rec.anlog [Lantus (10mL VIAL) -] 6 units SQ HS 06/22/16 Insulin Lispro [Humalog] 2 unit SQ TID 06/22/16 Levetiracetam [Keppra Xr -] 500 mg PO DAILY 06/22/16 Sevelamer HCl [Renagel] 800 mg PO TID 06/22/16 Atorvastatin Ca [Lipitor] 20 mg PO HS #30 tablet 06/29/16 Furosemide [Lasix -] 80 mg PO DAILY #60 tablet 06/29/16 Anemia: No Asthma: No Cancer: No Cardiac Disorders: Yes (STENTS X5) CVA: No COPD: No CHF: No Dementia: No Diabetes: Yes GI Disorders: No Disorders: No HTN: Yes Hypercholesterolemia: Yes Liver Disease: No Suicide Attempt (Hx): No Seizures: No Thyroid Disease: No - Surgical History Abdominal Surgery: No Appendectomy: No Cardiac Surgery: Yes (stents) Cholecystectomy: No Lung Surgery: No Neurologic Surgery: No Orthopedic Surgery: Yes (R. hand, r. foot toes amputated, l. foot 4th & 5th toes amputated) - Immunization History Td Vaccination: Yes TDAP Vaccination: Yes Immunization Up to Date: No - Psycho/Social/Smoking Cessation Hx Anxiety: No Suicidal Ideation: No Smoking Status: No Smoking History: Never smoked Have you smoked in the past 12 months: No Number of Cigarettes Smoked Daily: 0 Hx Alcohol Use: No Drug/Substance Use Hx: No Substance Use Type: None Hx Substance Use Treatment: No *Physical Exam - Vital Signs Last Vital Signs Temp Pulse Resp BP Pulse Ox 97.5 F L 84 28 H 113/63 97 07/10/16 10:43 07/10/16 10:43 07/10/16 10:43 07/10/16 10:43 07/10/16 10:43 ED Treatment Course - LABORATORY CBC & Chemistry Diagram: 07/10/16 12:22 07/10/16 12:22 - RADIOLOGY Radiology Studies Ordered: Category Date Time Status CHEST X-RAY PORTABLE* [RAD] Stat Radiology 07/10/16 11:04 Ordered Medical Decision Making - Medical Decision Making 07/10/16 12:13 A/P: 61 year old male with a history of multiple prior admissions for decompensated CHF presenting with LE edema and shortness of breath. 1. EKG 2. CXR 3. Cardiac labs 4. Lasix 80mg IVP (on 80mg po bid at home) 5. Zofran/Simethicone 6. Re-assess 07/10/16 14:56 Troponin 0.14- has been similar in past, but will obtain second. V/s repeated and are all within normal limits including RR and SpO2%. Will dc with followup on Friday if second troponin is not higher. Discussed with Dr. Rios. 07/10/16 16:29 Repeat troponin is 0.15. Discussed with Dr. Landers; recommends observation to cycle cardiac enzymes and diurese. *DC/Admit/Observation/Transfer Diagnosis at time of Disposition: Elevated troponin I level CHF exacerbation Qualifiers: Congestive heart failure type: unspecified congestive heart failure type Qualified Code(s): I50.9 - Heart failure, unspecified - Discharge Dispostion Condition at time of disposition: Guarded Admit: Yes
[2016-07-10] MEDS ORDERED: FUROSEMIDE 40 MG/4 ML INJECTABLE VIAL IVPUSH ONE (11:47)
[2016-07-10 12:34] LABS: BASOPHIL 0.9 % (0-2.0); EOSINOPHIL 1.5 % (0-4.5); MCH 28.6 pg (25.7-33.7); MCHC 32.6 g/dl (32.0-35.9); MEAN CELL VOLUME 87.6 fl (80-96); MEAN PLT VOLUME 8.1 fl (7.5-11.1); NEUTROPHILS 67.7 % (42.8-82.8); PLATELET COUNT 243 K/MM3 (134-434); RDW 17.7 % (11.9-15.9); WHITE BLOOD COUNT 4.5 K/mm3 (4.0-10.0)
[2016-07-10 12:39] LABS: TROPONIN I 0.14 ng/ml (0.00-0.05)
[2016-07-10 12:59] LABS: CALCIUM 9.3 mg/dL (8.5-10.1); CREATININE 2.8 mg/dL (0.7-1.3)
[2016-07-10 13:01] LABS: BILIRUBIN,TOTAL 0.8 mg/dL (0.2-1.0); TOT PROT 7.1 g/dl (6.4-8.2)
[2016-07-10] MEDS ORDERED: FUROSEMIDE 40 MG/4 ML INJECTABLE VIAL ONE (13:08)
--- NOTE | 2016-07-10 13:52 | EKG ---
Test Reason : Blood Pressure : / mmHG Vent. Rate : 096 BPM Atrial Rate : 096 BPM P-R Int : 170 ms QRS Dur : 112 ms QT Int : 406 ms P-R-T Axes : 062 -34 158 degrees QTc Int : 512 ms SINUS RHYTHM WITH SINUS ARRHYTHMIA WITH OCCASIONAL PREMATURE VENTRICULAR COMPLEXES AND FUSION COMPLEXES LEFT AXIS DEVIATION PROLONGED QT ABNORMAL ECG WHEN COMPARED WITH ECG OF 22-JUN-2016 20:14, FUSION COMPLEXES ARE NOW PRESENT PREMATURE VENTRICULAR COMPLEXES ARE NOW PRESENT Confirmed by HEMALATHA CRISTINA MD ([id number]) on 07/10/2016 1:52:22 PM Referred By: Confirmed By:HEMALATHA CRISTINA MD
[2016-07-10] MEDS ORDERED: SIMETHICONE 80 MG TAB.CHEW (FP) PO ONE (14:10)
[2016-07-10] MEDS ORDERED: ONDANSETRON 4 MG/2 ML VIAL IVPUSH ONE (14:10)
[2016-07-10] MEDS ORDERED: ONDANSETRON 4 MG/2 ML VIAL ONE (14:56)
[2016-07-10 15:28] LABS: TROPONIN I 0.15 ng/ml (0.00-0.05)
--- NOTE | 2016-07-10 16:24 | CON.CARD ---
Consult Consult Specialty:: Cardiology for [place] - History of Present Illness Chief Complaint: sob/chest tightness History of Present Illness: HISTORY OF PRESENT ILLNESS: This is a 61 year old male with HTN, HLD, CAD s/p CABG, ICM with chronic systolic CHF and multiple prior exacerbations, PAD with amputations, CKD, and anemia, most recently discharged from the hospital on after being treated for chest pain and CHF as well as debridement of foot wounds. He presents again today stating that he is feeling short of breath ( worse on exertion) with intermittent chest pain that does not seem related to exertion. 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 Home Medications - Allergies Allergies/Adverse Reactions: Allergies Allergy/AdvReac Type Severity Reaction Status Date / Time banana Allergy Verified 07/10/16 10:42 No Known Drug Allergies Allergy Verified 07/10/16 10:42 - Home Medications Home Medications: Ambulatory Orders Acetaminophen 325 mg PO Q6H PRN 06/22/16 Ascorbate Calcium [Vitamin C] 500 mg PO DAILY 06/22/16 Calcitriol [Calcitriol -] 0.25 mcg PO DAILY 06/22/16 Carvedilol [Coreg] 12.5 mg PO DAILY 06/22/16 Citalopram Hydrobromide [Citalopram HBr] 20 mg PO DAILY 06/22/16 Clopidogrel Bisulfate [Clopidogrel] 75 mg PO DAILY 06/22/16 Divalproex [Depakote -] 250 mg PO BID 06/22/16 Insulin Glargine,Hum.rec.anlog [Lantus (10mL VIAL) -] 6 units SQ HS 06/22/16 Insulin Lispro [Humalog] 2 unit SQ TID 06/22/16 Levetiracetam [Keppra Xr -] 500 mg PO DAILY 06/22/16 Sevelamer HCl [Renagel] 800 mg PO TID 06/22/16 Atorvastatin Ca [Lipitor] 20 mg PO HS #30 tablet 06/29/16 Furosemide [Lasix -] 80 mg PO DAILY #60 tablet 06/29/16 Family Disease History - Family Disease History Family Disease History: Diabetes: Sister Review of Systems - Review of Systems Constitutional: reports: No Symptoms Eyes: reports: No Symptoms HENT: reports: No Symptoms Neck: reports: No Symptoms Cardiovascular: reports: Chest Pain Respiratory: reports: SOB, SOB on Exertion Gastrointestinal: reports: No Symptoms Genitourinary: reports: No Symptoms Breasts: reports: No Symptoms Reported Musculoskeletal: reports: No Symptoms Integumentary: reports: No Symptoms Neurological: reports: No Symptoms Endocrine: reports: No Symptoms Hematology/Lymphatic: reports: No Symptoms Psychiatric: reports: No Symptoms Vital Signs: Vital Signs Temperature 98.6 F 07/10/16 14:14 Pulse Rate 88 07/10/16 14:14 Respiratory Rate 20 07/10/16 14:14 Blood Pressure 116/81 07/10/16 14:14 O2 Sat by Pulse Oximetry (%) 100 07/10/16 14:14 Constitutional: Yes: Well Nourished, No Distress, Calm Eyes: Yes: WNL, Conjunctiva Clear, EOM Intact HENT: Yes: WNL, Atraumatic, Normocephalic Neck: Yes: WNL, Supple, Trachea Midline Respiratory: Yes: Diminished, Rales Gastrointestinal: Yes: WNL, Normal Bowel Sounds Renal/: Yes: WNL Cardiovascular: Yes: WNL, Regular Rate and Rhythm Heart Sounds: Yes: S1, S2 Musculoskeletal: Yes: WNL Extremities: Yes: Amputation, Other (wounds /with surgical dressing) Edema: No Integumentary: Yes: WNL Neurological: Yes: WNL, Alert, Oriented ...Motor Strength: WNL Psychiatric: Yes: WNL, Alert, Oriented - Other Data Labs, Other Data: CBC, BMP 07/10/16 12:22 07/10/16 12:22 Troponin, BNP 07/10/16 07/10/16 12:02 14:53 Troponin I 0.14 H 0.15 H Troponin, BNP 07/10/16 07/10/16 12:02 14:53 Troponin I 0.14 H 0.15 H Imaging - Results Chest X-ray: Image Reviewed EKG: Image Reviewed (sr left axis vpc's rep. abn) Problem List - Problems (1) Cellulitis and abscess of foot Code(s): L03.119 - CELLULITIS OF UNSPECIFIED PART OF LIMB L02.619 - CUTANEOUS ABSCESS OF UNSPECIFIED FOOT (2) Glaucoma Code(s): H40.9 - UNSPECIFIED GLAUCOMA (3) 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 complication Code(s): E11.29 - TYPE 2 DIABETES MELLITUS W OTH DIABETIC KIDNEY COMPLICATION (4) Osteomyelitis Code(s): M86.9 - OSTEOMYELITIS, UNSPECIFIED Qualifiers: (5) ACS (acute coronary syndrome) Code(s): I24.9 - ACUTE ISCHEMIC HEART DISEASE, UNSPECIFIED (6) Acquired absence of left foot Code(s): Z89.432 - ACQUIRED ABSENCE OF LEFT FOOT (7) Acquired absence of right foot Code(s): Z89.431 - ACQUIRED ABSENCE OF RIGHT FOOT (8) Acute kidney failure Code(s): N17.9 - ACUTE KIDNEY FAILURE, UNSPECIFIED (9) Acute on chronic systolic (congestive) heart failure Code(s): I50.23 - ACUTE ON CHRONIC SYSTOLIC (CONGESTIVE) HEART FAILURE (10) CAD (coronary artery disease) Code(s): I25.10 - ATHSCL HEART DISEASE OF [place] CORONARY ARTERY W/O ANG PCTRS (11) Chest pain Code(s): R07.9 - CHEST PAIN, UNSPECIFIED (12) Chronic kidney disease (CKD) stage G3a/A2, moderately decreased glomerular filtration rate (GFR) between 45-59 mL/min/1.73 square meter and albuminuria creatinine ratio between 30-299 mg/g Code(s): N18.3 - CHRONIC KIDNEY DISEASE, STAGE 3 (MODERATE) (13) Chronic kidney disease, stage 3 (moderate) Code(s): N18.3 - CHRONIC KIDNEY DISEASE, STAGE 3 (MODERATE) (14) Demand ischemia of myocardium Code(s): I24.8 - OTHER FORMS OF ACUTE ISCHEMIC HEART DISEASE (15) Dyspnea Code(s): R06.00 - DYSPNEA, UNSPECIFIED (16) Epistaxis Code(s): R04.0 - EPISTAXIS (17) Eye pain Code(s): H57.10 - OCULAR PAIN, UNSPECIFIED EYE (18) Headache Code(s): R51 - HEADACHE (19) Hyphema Code(s): H21.00 - HYPHEMA, UNSPECIFIED EYE (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 Code(s): Z79.01 - STITCH BONDING MACHINE OPERATOR (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 OF ANTICOAGULANTS (21) jail current use of aspirin Code(s): Z79.82 - STITCH BONDING MACHINE OPERATOR (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 OF ASPIRIN (22) jail current use of insulin Code(s): Z79.4 - STITCH BONDING MACHINE OPERATOR (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 OF INSULIN (23) Positive blood culture Code(s): R78.81 - BACTEREMIA (24) Sepsis Code(s): A41.9 - SEPSIS, UNSPECIFIED ORGANISM Qualifiers: Sepsis type: sepsis due to unspecified organism Qualified Code(s): A41.9 - Sepsis, unspecified organism (25) Type 2 diabetes mellitus with foot ulcer Code(s): E11.621 - TYPE 2 DIABETES MELLITUS WITH FOOT ULCER L97.509 - NON-PRESSURE CHRONIC ULCER OTH PRT UNSP FOOT W UNSP SEVERITY (26) Wound infection Code(s): T14.8 - OTHER INJURY OF UNSPECIFIED BODY REGION L08.9 - LOCAL INFECTION OF THE SKIN AND SUBCUTANEOUS TISSUE, UNSP (27) Wound of lower extremity Code(s): S81.809A - UNSPECIFIED OPEN WOUND, UNSPECIFIED LOWER LEG, INIT ENCNTR Qualifiers: Encounter type: sequela Laterality: left Qualified Code(s): S81.802S - Unspecified open wound, left lower leg, sequela (28) Anemia Code(s): D64.9 - ANEMIA, UNSPECIFIED (29) CHF (congestive heart failure) Code(s): I50.9 - HEART FAILURE, UNSPECIFIED Qualifiers: (30) Diabetes Code(s): E11.9 - TYPE 2 DIABETES MELLITUS WITHOUT COMPLICATIONS Qualifiers: Diabetes mellitus type: type 2 Diabetes mellitus complication detail: with peripheral angiopathy without gangrene (31) Diabetes mellitus type 2 in nonobese Code(s): E11.9 - TYPE 2 DIABETES MELLITUS WITHOUT COMPLICATIONS (32) Diabetic foot ulcer Code(s): E11.621 - TYPE 2 DIABETES MELLITUS WITH FOOT ULCER L97.509 - NON-PRESSURE CHRONIC ULCER OTH PRT UNSP FOOT W UNSP SEVERITY Qualifiers: Laterality: bilateral (33) Diabetic neuropathy Code(s): E11.40 - TYPE 2 DIABETES MELLITUS WITH DIABETIC NEUROPATHY, UNSP (34) Hyperglycemia without ketosis Code(s): R73.9 - HYPERGLYCEMIA, UNSPECIFIED (35) Hyperlipemia Code(s): E78.5 - HYPERLIPIDEMIA, UNSPECIFIED (36) Hypertension Code(s): I10 - ESSENTIAL (PRIMARY) HYPERTENSION (37) Noncompliance with medication regimen Code(s): Z91.14 - PATIENT'S OTHER NONCOMPLIANCE WITH MEDICATION REGIMEN (38) PAD (peripheral artery disease) Code(s): I73.9 - PERIPHERAL VASCULAR DISEASE, UNSPECIFIED (39) Peripheral neuropathy Code(s): G62.9 - POLYNEUROPATHY, UNSPECIFIED (40) Pulmonary edema Code(s): J81.1 - CHRONIC PULMONARY EDEMA Qualifiers: Chronicity: acute Qualified Code(s): J81.0 - Acute pulmonary edema (41) S/P CABG (coronary artery bypass graft) Code(s): Z95.1 - PRESENCE OF AORTOCORONARY BYPASS GRAFT (42) Uncontrolled diabetes mellitus Code(s): E11.65 - TYPE 2 DIABETES MELLITUS WITH HYPERGLYCEMIA Qualifiers: Diabetes mellitus type: type 2 Diabetes mellitus complication detail: with peripheral angiopathy with gangrene Assessment/Plan CKD /chronically elevated TNIs ischemic cmp ashd cabg pad anemia admitted with acute decompensated systolic chf Plan; IV lasix case monitor TNIs and renal function wound care dvt plx
[2016-07-10] MEDS ORDERED: ACETAMINOPHEN 325 MG TABLET (FP) PO PRN (19:52)
[2016-07-10] MEDS ORDERED: PATIENT'S OWN MEDICATION (NON-FORMULARY) (Sevelamer Hcl [Renagel] 800 MG) PO SCH (22:00)
[2016-07-10] MEDS: ATORVASTATIN CA 20 MG TABLET (FP) PO SCH (23:08)
[2016-07-10] MEDS: DIVALPROEX SODIUM 250 MG TABLET E.C. (FP) PO SCH (23:08)
[2016-07-10] MEDS: HEPARIN NA (PORCINE) 5,000 UNITS/ML 1ML VIAL SQ SCH (23:08)
[2016-07-10] MEDS: CARVEDILOL 12.5 MG TABLET (FP) PO SCH (23:08)
[2016-07-10] MEDS: INSULIN SLIDING SCALE (NOVOLOG) 1 VIAL SQ SCH (23:34)
[2016-07-11] MEDS: INSULIN SLIDING SCALE (NOVOLOG) 1 VIAL SQ SCH ×4 (06:33→21:18)
[2016-07-11] MEDS ORDERED: FUROSEMIDE 40 MG/4 ML INJECTABLE VIAL ONE (06:34)
[2016-07-11] MEDS: FUROSEMIDE 40 MG/4 ML INJECTABLE VIAL IVPUSH SCH ×2 (06:42→14:43)
[2016-07-11 07:15] LABS: BASOPHIL 1.1 % (0-2.0); EOSINOPHIL 3.8 % (0-4.5); MCH 28.7 pg (25.7-33.7); MCHC 32.7 g/dl (32.0-35.9); MEAN CELL VOLUME 87.7 fl (80-96); MEAN PLT VOLUME 8.1 fl (7.5-11.1); NEUTROPHILS 58.9 % (42.8-82.8); PLATELET COUNT 230 K/MM3 (134-434); RDW 17.9 % (11.9-15.9); WHITE BLOOD COUNT 3.9 K/mm3 (4.0-10.0)
[2016-07-11 07:40] LABS: ALBUMIN 2.6 g/dl (3.4-5.0); CALCIUM 8.4 mg/dL (8.5-10.1)
[2016-07-11 07:47] LABS: BILIRUBIN,TOTAL 0.7 mg/dL (0.2-1.0); CREATININE 2.7 mg/dL (0.7-1.3); TOT PROT 6.1 g/dl (6.4-8.2); TROPONIN I 0.15 ng/ml (0.00-0.05)
[2016-07-11] MEDS: SEVELAMER CARBONATE 800 MG TAB (FP) PO SCH ×3 (08:21→18:57)
[2016-07-11] MEDS ORDERED: HEMOQUE TEST 1 EACH EACH ONE (10:06)
--- NOTE | 2016-07-11 10:33 | EKG ---
Test Reason : Blood Pressure : / mmHG Vent. Rate : 082 BPM Atrial Rate : 082 BPM P-R Int : 166 ms QRS Dur : 112 ms QT Int : 442 ms P-R-T Axes : 059 -20 186 degrees QTc Int : 516 ms SINUS RHYTHM WITH SINUS ARRHYTHMIA WITH FREQUENT PREMATURE VENTRICULAR COMPLEXES PROLONGED QT ABNORMAL ECG WHEN COMPARED WITH ECG OF 10-JUL-2016 11:09, FUSION COMPLEXES ARE NO LONGER PRESENT Confirmed by TIRSO DAVIDSON, BRIE ([id number]) on 07/11/2016 10:33:05 AM Referred By: SREEDHAR ABREU Confirmed By:BRIE CHAHAL MD
[2016-07-11] MEDS ORDERED: DEXTROSE 5%-WATER - 1,000 ML IV ONE (10:46)
--- NOTE | 2016-07-11 10:47 | PN ---
Progress Note, Physician History of Present Illness: seen and examined today in nad. no overnight events. no new complaints. states slightly better than presentation but still sob. - Current Medication List Current Medications: Active Medications Acetaminophen (Tylenol -) 650 mg PO Q4H PRN PRN Reason: FEVER OR PAIN Atorvastatin Calcium (Lipitor -) 20 mg PO HS [facility] Last Admin: 07/10/16 23:08 Dose: Not Given Calcitriol (Rocaltrol -) 0.25 mcg PO DAILY [facility] Carvedilol (Coreg -) 12.5 mg PO BID [facility] Last Admin: 07/10/16 23:08 Dose: Not Given Citalopram Hydrobromide (Celexa -) 20 mg PO DAILY [facility] Clopidogrel Bisulfate (Plavix -) 75 mg PO DAILY [facility] Divalproex Sodium (Depakote -) 250 mg PO BID [facility] Last Admin: 07/10/16 23:08 Dose: Not Given Furosemide (Lasix Injection -) 40 mg IVPUSH BID@0600,1400 [facility] Last Admin: 07/11/16 06:42 Dose: 40 mg Heparin Sodium (Porcine) (Heparin -) 5,000 unit SQ BID [facility] Last Admin: 07/10/16 23:08 Dose: Not Given Insulin Aspart (Novolog Vial Sliding Scale -) 1 vial SQ ACHS [facility] PRN Reason: Protocol Last Admin: 07/11/16 06:33 Dose: Not Given Levetiracetam (Keppra Xr -) 500 mg PO DAILY [facility] Sevelamer Carbonate (Renvela -) 800 mg PO TIDCM [facility] - Objective Vital Signs: Vital Signs Temperature 98.6 F 07/10/16 22:58 Pulse Rate 77 07/11/16 10:42 Respiratory Rate 16 07/11/16 10:42 Blood Pressure 119/61 07/11/16 10:42 O2 Sat by Pulse Oximetry (%) 96 07/11/16 10:42 Constitutional: Yes: No Distress, Calm Eyes: Yes: WNL, Conjunctiva Clear, EOM Intact, PERRL HENT: Yes: WNL, Atraumatic, Normocephalic Neck: Yes: WNL, Supple, Trachea Midline Cardiovascular: Yes: Regular Rate and Rhythm, S1, S2. No: Bradycardia, Tachycardia, Pulse Irregular, Bruit, JVD, Gallop, Murmur, Rub, S3, S4, Varicosities Respiratory: Yes: Diminished, Rales, Wheezes. No: Regular, Rhonchi Gastrointestinal: Yes: WNL, Normal Bowel Sounds, Soft. No: Distention, Tenderness Musculoskeletal: Yes: Muscle Weakness Extremities: Yes: Amputation Edema: Yes Edema: LLE: 2+, RLE: 2+ Peripheral Pulses WNL: No Integumentary: Yes: Venous Stasis Changes Neurological: Yes: Alert, Oriented Psychiatric: Yes: Alert, Oriented Labs: CBC, BMP 07/11/16 06:00 07/11/16 06:00 - ....Imaging Chest X-ray: Report Reviewed, Image Reviewed EKG: Report Reviewed, Image Reviewed Other: Report Reviewed, Image Reviewed Assessment/Plan 61 year old man with a history of HTN, HLD, CAD s/p CABG, ICM with chronic systolic CHF and multiple prior exacerbations, PAD with amputations, CKD, Anemia , admitted with worsening sob, congestion, chest discomfort despite increased dose of outpatient lasix. SOB/Edema-acute on chronic systolic CHF, CKD -volume overloaded despite increasing outpatient po lasix to 80mg bid for the past week (As per pt report) -titrate up diuresis as needed -monitor strict I/Os and daily weights -monitor bun/creat, electrolytes, replete as needed -cont coreg -not on CRISTHIAN-I/ARB due to CKD Chest pain-known CAD s/p CABG, likely due to congestion from CHF -cardiac enzymes wnl -cont Plavix, Coreg -pt has opted for medical therapy for now for his presumed progression of CAD given risk of worsening renal function, progression to HD, and due to anemia and guaiac + stool
[2016-07-11] MEDS: HEPARIN NA (PORCINE) 5,000 UNITS/ML 1ML VIAL SQ SCH ×2 (11:20→21:17)
[2016-07-11] MEDS: CLOPIDOGREL BISULFATE 75 MG TABLET (FP) PO SCH (11:20)
[2016-07-11] MEDS: CARVEDILOL 12.5 MG TABLET (FP) PO SCH ×2 (11:20→21:07)
[2016-07-11] MEDS: levETIRAcetam XR 500 MG TAB PO SCH (11:20)
[2016-07-11] MEDS: DIVALPROEX SODIUM 250 MG TABLET E.C. (FP) PO SCH ×2 (11:20→21:07)
[2016-07-11] MEDS: CITALOPRAM HYDROBROMIDE 20 MG TABLET (FP) PO SCH (11:20)
[2016-07-11] MEDS: CALCITRIOL 0.25 MCG CAPSULE (FP) PO SCH (11:20)
--- NOTE | 2016-07-11 15:30 | HP ---
Admitting History and Physical - Admission History of Present Illness: 61 year old male with HTN, HLD, CAD s/p CABG, ICM with chronic systolic CHF and multiple prior exacerbations, PAD with amputations, CKD, and anemia, most recently discharged from the hospital on 06/29 after being treated for chest pain and CHF as well as debridement of foot wounds. He presents again today stating that he is feeling short of breath (worse on exertion) with intermittent chest pain that does not seem related to exertion. 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 Home Medications - Allergies Allergies/Adverse Reactions: Allergies Allergy/AdvReac Type Severity Reaction Status Date / Time banana Allergy Verified 07/10/16 10:42 No Known Drug Allergies Allergy Verified 07/10/16 10:42 - Home Medications Home Medications: Ambulatory Orders Acetaminophen 325 mg PO Q6H PRN 06/22/16 Ascorbate Calcium [Vitamin C] 500 mg PO DAILY 06/22/16 Calcitriol [Calcitriol -] 0.25 mcg PO DAILY 06/22/16 Carvedilol [Coreg] 12.5 mg PO DAILY 06/22/16 Citalopram Hydrobromide [Citalopram HBr] 20 mg PO DAILY 06/22/16 Clopidogrel Bisulfate [Clopidogrel] 75 mg PO DAILY 06/22/16 Divalproex [Depakote -] 250 mg PO BID 06/22/16 Insulin Glargine,Hum.rec.anlog [Lantus (10mL VIAL) -] 6 units SQ HS 06/22/16 Insulin Lispro [Humalog] 2 unit SQ TID 06/22/16 Levetiracetam [Keppra Xr -] 500 mg PO DAILY 06/22/16 Sevelamer HCl [Renagel] 800 mg PO TID 06/22/16 Atorvastatin Ca [Lipitor] 20 mg PO HS #30 tablet 06/29/16 Furosemide [Lasix -] 80 mg PO DAILY #60 tablet 06/29/16 Unobtainable 07/10/16 Family Disease History - Family Disease History Family Disease History: Diabetes: Sister Review of Systems - Review of Systems Cardiovascular: reports: Chest Pain Respiratory: reports: SOB Gastrointestinal: reports: No Symptoms Genitourinary: reports: No Symptoms Physical Examination Vital Signs: Vital Signs Temperature 98.6 F 07/10/16 22:58 Pulse Rate 69 07/11/16 14:42 Respiratory Rate 19 07/11/16 14:42 Blood Pressure 99/60 07/11/16 14:42 O2 Sat by Pulse Oximetry (%) 97 07/11/16 14:42 Cardiovascular: Yes: Murmur, S1, S2 Respiratory: Yes: Diminished, Rales Gastrointestinal: Yes: Normal Bowel Sounds, Soft Wound/Incision: Yes: Dressing Dry and Intact Labs: CBC, BMP 07/11/16 06:00 07/11/16 06:00 Problem List - Problems (1) CHF exacerbation Assessment/Plan: IV LAISIX MONITOR LYTES AND CXR Code(s): I50.9 - HEART FAILURE, UNSPECIFIED Qualifiers: Congestive heart failure type: unspecified congestive heart failure type (2) Elevated troponin I measurement Assessment/Plan: CARDIO ON BOARD MONITOR Code(s): R79.89 - OTHER SPECIFIED ABNORMAL FINDINGS OF BLOOD CHEMISTRY (3) 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 complication Assessment/Plan: BGM Code(s): E11.29 - TYPE 2 DIABETES MELLITUS W OTH DIABETIC KIDNEY COMPLICATION (4) Acute on chronic systolic (congestive) heart failure Assessment/Plan: ABOVE Code(s): I50.23 - ACUTE ON CHRONIC SYSTOLIC (CONGESTIVE) HEART FAILURE (5) Chest pain Assessment/Plan: FOLLOW CE PER CARDIO Code(s): R07.9 - CHEST PAIN, UNSPECIFIED (6) Wound of lower extremity Assessment/Plan: PODIATRY CONSULT Code(s): S81.809A - UNSPECIFIED OPEN WOUND, UNSPECIFIED LOWER LEG, INIT ENCNTR Qualifiers: Encounter type: sequela Laterality: left Qualified Code(s): S81.802S - Unspecified open wound, left lower leg, sequela
[2016-07-11 15:41] VITALS: BMI 26.9
[2016-07-11] MEDS: MAG HYDROX/AL HYDROX/SIMETH 30 ML UNIT-DOSE CUP PO SCH (18:58)
[2016-07-11] MEDS: SIMETHICONE 80 MG TAB.CHEW (FP) PO SCH ×2 (18:58→21:07)
[2016-07-11] MEDS: ATORVASTATIN CA 20 MG TABLET (FP) PO SCH (21:18)
[2016-07-12] MEDS: MAG HYDROX/AL HYDROX/SIMETH 30 ML UNIT-DOSE CUP PO SCH ×4 (00:37→18:18)
[2016-07-12] MEDS: INSULIN SLIDING SCALE (NOVOLOG) 1 VIAL SQ SCH ×4 (06:29→21:30)
[2016-07-12] MEDS: FUROSEMIDE 40 MG/4 ML INJECTABLE VIAL IVPUSH SCH ×2 (06:29→13:34)
[2016-07-12] MEDS ORDERED: PT OWN MED DRAWER 7, Y5N ONE (08:32)
--- NOTE | 2016-07-12 09:00 | PN ---
Progress Note, Physician Chief Complaint: no distress TELE: NSR, NSST. VPCs - Current Medication List Current Medications: Active Medications Acetaminophen (Tylenol -) 650 mg PO Q4H PRN PRN Reason: FEVER OR PAIN Al Hydroxide/Mg Hydroxide (Mylanta Oral Suspension -) 30 ml PO Q6HPO [facility] Last Admin: 07/12/16 06:29 Dose: 30 ml Atorvastatin Calcium (Lipitor -) 20 mg PO HS [facility] Last Admin: 07/11/16 21:18 Dose: Not Given Calcitriol (Rocaltrol -) 0.25 mcg PO DAILY [facility] Last Admin: 07/11/16 11:20 Dose: 0.25 mcg Carvedilol (Coreg -) 12.5 mg PO BID [facility] Last Admin: 07/11/16 21:07 Dose: 12.5 mg Citalopram Hydrobromide (Celexa -) 20 mg PO DAILY [facility] Last Admin: 07/11/16 11:20 Dose: 20 mg Clopidogrel Bisulfate (Plavix -) 75 mg PO DAILY [facility] Last Admin: 07/11/16 11:20 Dose: 75 mg Divalproex Sodium (Depakote -) 250 mg PO BID [facility] Last Admin: 07/11/16 21:07 Dose: 250 mg Furosemide (Lasix Injection -) 40 mg IVPUSH BID@0600,1400 [facility] Last Admin: 07/12/16 06:29 Dose: 40 mg Heparin Sodium (Porcine) (Heparin -) 5,000 unit SQ BID [facility] Last Admin: 07/11/16 21:17 Dose: Not Given Dextrose (D5w -) 1,000 mls @ 40 mls/hr IV .[id number] ONE Stop: 07/12/16 11:45 Last Admin: 07/11/16 10:47 Dose: 40 mls/hr Insulin Aspart (Novolog Vial Sliding Scale -) 1 vial SQ ACHS [facility] PRN Reason: Protocol Last Admin: 07/12/16 06:29 Dose: Not Given Levetiracetam (Keppra Xr -) 500 mg PO DAILY [facility] Last Admin: 07/11/16 11:20 Dose: 500 mg Sevelamer Carbonate (Renvela -) 800 mg PO TIDCM [facility] Last Admin: 07/11/16 18:57 Dose: Not Given Simethicone (Mylicon -) 80 mg PO QID [facility] Last Admin: 07/11/16 21:07 Dose: 80 mg - Objective Vital Signs: Vital Signs Temperature 98.0 F 07/11/16 22:00 Pulse Rate 63 07/12/16 06:00 Respiratory Rate 18 07/12/16 06:00 Blood Pressure 101/56 07/12/16 06:00 O2 Sat by Pulse Oximetry (%) 93 L 07/11/16 21:00 Constitutional: Yes: No Distress Cardiovascular: Yes: Regular Rate and Rhythm Respiratory: Yes: CTA Bilaterally Gastrointestinal: Yes: Soft Edema: No Neurological: Yes: Alert, Oriented Labs: CBC, BMP 07/11/16 06:00 07/11/16 06:00 Laboratory Tests 07/11/16 07/11/16 06:00 06:00 WBC 3.9 L Hgb 8.2 L Hct 25.0 L Plt Count 230 Potassium 4.2 BUN 58 H Creatinine 2.7 H - ....Imaging EKG: Image Reviewed Assessment/Plan Assessment/Plan 61 year old man with a history of HTN, HLD, CAD s/p CABG, ICM with chronic systolic CHF and multiple prior exacerbations, PAD with amputations, CKD, Anemia , admitted with worsening sob, congestion, chest discomfort despite increased dose of outpatient lasix. SOB/Edema-acute on chronic systolic CHF, CKD -volume overloaded despite increasing outpatient po lasix to 80mg bid for the past week (As per pt report) -Continue IV lasix for today -monitor strict I/Os and daily weights -monitor bun/creat, electrolytes, replete as needed -cont coreg -not on CRISTHIAN-I/ARB due to CKD Chest pain-known CAD s/p CABG, likely due to congestion from CHF -cardiac enzymes wnl -cont Plavix, Coreg -pt has opted for medical therapy for now for his presumed progression of CAD given risk of worsening renal function, progression to HD, and due to anemia and guaiac + stool
--- NOTE | 2016-07-12 09:50 | PN ---
Progress Note, Physician History of Present Illness: FEELS BETTER - Current Medication List Current Medications: Active Medications Acetaminophen (Tylenol -) 650 mg PO Q4H PRN PRN Reason: FEVER OR PAIN Al Hydroxide/Mg Hydroxide (Mylanta Oral Suspension -) 30 ml PO Q6HPO [facility] Last Admin: 07/12/16 06:29 Dose: 30 ml Atorvastatin Calcium (Lipitor -) 20 mg PO HS [facility] Last Admin: 07/11/16 21:18 Dose: Not Given Calcitriol (Rocaltrol -) 0.25 mcg PO DAILY [facility] Last Admin: 07/11/16 11:20 Dose: 0.25 mcg Carvedilol (Coreg -) 12.5 mg PO BID [facility] Last Admin: 07/11/16 21:07 Dose: 12.5 mg Citalopram Hydrobromide (Celexa -) 20 mg PO DAILY [facility] Last Admin: 07/11/16 11:20 Dose: 20 mg Clopidogrel Bisulfate (Plavix -) 75 mg PO DAILY [facility] Last Admin: 07/11/16 11:20 Dose: 75 mg Divalproex Sodium (Depakote -) 250 mg PO BID [facility] Last Admin: 07/11/16 21:07 Dose: 250 mg Furosemide (Lasix Injection -) 40 mg IVPUSH BID@0600,1400 [facility] Last Admin: 07/12/16 06:29 Dose: 40 mg Heparin Sodium (Porcine) (Heparin -) 5,000 unit SQ BID [facility] Last Admin: 07/11/16 21:17 Dose: Not Given Dextrose (D5w -) 1,000 mls @ 40 mls/hr IV .[id number] ONE Stop: 07/12/16 11:45 Last Admin: 07/11/16 10:47 Dose: 40 mls/hr Insulin Aspart (Novolog Vial Sliding Scale -) 1 vial SQ ACHS [facility] PRN Reason: Protocol Last Admin: 07/12/16 06:29 Dose: Not Given Levetiracetam (Keppra Xr -) 500 mg PO DAILY [facility] Last Admin: 07/11/16 11:20 Dose: 500 mg Sevelamer Carbonate (Renvela -) 800 mg PO TIDCM [facility] Last Admin: 07/11/16 18:57 Dose: Not Given Simethicone (Mylicon -) 80 mg PO QID [facility] Last Admin: 07/11/16 21:07 Dose: 80 mg - Objective Vital Signs: Vital Signs Temperature 98.0 F 07/11/16 22:00 Pulse Rate 63 07/12/16 06:00 Respiratory Rate 18 07/12/16 06:00 Blood Pressure 101/56 07/12/16 06:00 O2 Sat by Pulse Oximetry (%) 98 07/12/16 09:16 Cardiovascular: Yes: Regular Rate and Rhythm Respiratory: Yes: Regular, CTA Bilaterally Gastrointestinal: Yes: Normal Bowel Sounds, Soft Edema: Yes Labs: CBC, BMP 07/11/16 06:00 07/11/16 06:00 Problem List - Problems (1) CHF exacerbation Assessment/Plan: IV LAISIX MONITOR LYTES AND CXR Code(s): I50.9 - HEART FAILURE, UNSPECIFIED Qualifiers: Congestive heart failure type: unspecified congestive heart failure type Qualified Code(s): I50.9 - Heart failure, unspecified (2) Elevated troponin I measurement Assessment/Plan: CARDIO ON BOARD MONITOR Code(s): R79.89 - OTHER SPECIFIED ABNORMAL FINDINGS OF BLOOD CHEMISTRY (3) 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 complication Code(s): E11.29 - TYPE 2 DIABETES MELLITUS W OTH DIABETIC KIDNEY COMPLICATION (4) Acute on chronic systolic (congestive) heart failure Assessment/Plan: ABOVE Code(s): I50.23 - ACUTE ON CHRONIC SYSTOLIC (CONGESTIVE) HEART FAILURE (5) Chest pain Assessment/Plan: FOLLOW CE PENDING PER CARDIO Code(s): R07.9 - CHEST PAIN, UNSPECIFIED (6) Wound of lower extremity Assessment/Plan: PODIATRY CONSULT Code(s): S81.809A - UNSPECIFIED OPEN WOUND, UNSPECIFIED LOWER LEG, INIT ENCNTR Qualifiers: Encounter type: sequela Laterality: left Qualified Code(s): S81.802S - Unspecified open wound, left lower leg, sequela
[2016-07-12] MEDS: SEVELAMER CARBONATE 800 MG TAB (FP) PO SCH ×3 (10:28→18:18)
[2016-07-12] MEDS: CLOPIDOGREL BISULFATE 75 MG TABLET (FP) PO SCH (10:28)
[2016-07-12] MEDS: CARVEDILOL 12.5 MG TABLET (FP) PO SCH ×2 (10:32→21:29)
[2016-07-12] MEDS: HEPARIN NA (PORCINE) 5,000 UNITS/ML 1ML VIAL SQ SCH ×2 (10:33→21:29)
[2016-07-12] MEDS: CITALOPRAM HYDROBROMIDE 20 MG TABLET (FP) PO SCH (10:36)
[2016-07-12] MEDS: DIVALPROEX SODIUM 250 MG TABLET E.C. (FP) PO SCH ×2 (10:36→21:29)
[2016-07-12] MEDS: SIMETHICONE 80 MG TAB.CHEW (FP) PO SCH ×4 (10:37→21:31)
[2016-07-12] MEDS: levETIRAcetam XR 500 MG TAB PO SCH (10:37)
[2016-07-12] MEDS: CALCITRIOL 0.25 MCG CAPSULE (FP) PO SCH (10:37)
[2016-07-12 11:24] LABS: BASOPHIL 0.9 % (0-2.0); EOSINOPHIL 4.9 % (0-4.5); MCH 28.6 pg (25.7-33.7); MCHC 32.4 g/dl (32.0-35.9); MEAN CELL VOLUME 88.2 fl (80-96); MEAN PLT VOLUME 7.5 fl (7.5-11.1); NEUTROPHILS 62.9 % (42.8-82.8); PLATELET COUNT 230 K/MM3 (134-434); WHITE BLOOD COUNT 3.7 K/mm3 (4.0-10.0)
[2016-07-12 11:46] LABS: ALBUMIN 2.6 g/dl (3.4-5.0); BILIRUBIN,TOTAL 0.6 mg/dL (0.2-1.0); CALCIUM 8.3 mg/dL (8.5-10.1); CREATININE 2.6 mg/dL (0.7-1.3); TOT PROT 6.2 g/dl (6.4-8.2)
[2016-07-12 11:48] LABS: TROPONIN I 0.13 ng/ml (0.00-0.05)
--- NOTE | 2016-07-12 15:40 | CONSULT ---
Consult Consult Specialty:: Podiatry/ Wound Care Referred by:: Olga Reason for Consultation:: Left foot wound - History of Present Illness Chief Complaint: I haave a wound on my Left foot History of Present Illness: 61 year old male with HTN, HLD, CAD s/p CABG, ICM with chronic systolic CHF and multiple prior exacerbations, PAD with amputations, CKD, and anemia, most recently discharged from the hospital on 06/29 after being treated for chest pain and CHF as well as debridement of foot wounds. He presented again stating that he is feeling short of breath (worse on exertion) with intermittent chest pain that does not seem related to exertion, he was therefore admitted into the ICU. He is well known to me from the wound healing center. 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 Home Medications - Allergies Allergies/Adverse Reactions: Allergies Allergy/AdvReac Type Severity Reaction Status Date / Time banana Allergy Verified 07/10/16 10:42 No Known Drug Allergies Allergy Verified 07/10/16 10:42 - Home Medications Home Medications: Ambulatory Orders Acetaminophen 325 mg PO Q6H PRN 06/22/16 Ascorbate Calcium [Vitamin C] 500 mg PO DAILY 06/22/16 Calcitriol [Calcitriol -] 0.25 mcg PO DAILY 06/22/16 Carvedilol [Coreg] 12.5 mg PO DAILY 06/22/16 Citalopram Hydrobromide [Citalopram HBr] 20 mg PO DAILY 06/22/16 Clopidogrel Bisulfate [Clopidogrel] 75 mg PO DAILY 06/22/16 Divalproex [Depakote -] 250 mg PO BID 06/22/16 Insulin Glargine,Hum.rec.anlog [Lantus (10mL VIAL) -] 6 units SQ HS 06/22/16 Insulin Lispro [Humalog] 2 unit SQ TID 06/22/16 Levetiracetam [Keppra Xr -] 500 mg PO DAILY 06/22/16 Sevelamer HCl [Renagel] 800 mg PO TID 06/22/16 Atorvastatin Ca [Lipitor] 20 mg PO HS #30 tablet 06/29/16 Furosemide [Lasix -] 80 mg PO DAILY #60 tablet 06/29/16 Unobtainable 07/10/16 Family Disease History - Family Disease History Family Disease History: Diabetes: Sister Review of Systems - Review of Systems Constitutional: reports: No Symptoms Musculoskeletal: reports: Other (Patetin S/P B/L TMA) Integumentary: reports: Wound (Left foot) Physical Exam Vital Signs: Vital Signs Temperature 97.3 F L 07/12/16 11:57 Pulse Rate 67 07/12/16 15:11 Respiratory Rate 19 07/12/16 15:11 Blood Pressure 99/58 07/12/16 15:11 O2 Sat by Pulse Oximetry (%) 98 07/12/16 09:16 Constitutional: Yes: Well Nourished, No Distress, Calm Musculoskeletal: Yes: WNL Extremities: Yes: Amputation (B/L TMA) Edema: No Peripheral Pulses WNL: Yes Integumentary: Yes: Other (Plantar Lateral wound red and beefy viable wound edges. _ joint fluid drainge) Labs: CBC, BMP 07/12/16 11:00 07/12/16 11:00 Imaging - Results Chest X-ray: Report Reviewed Problem List - Problems (1) CHF exacerbation Code(s): I50.9 - HEART FAILURE, UNSPECIFIED Qualifiers: Congestive heart failure type: unspecified congestive heart failure type Qualified Code(s): I50.9 - Heart failure, unspecified (2) 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 complication Code(s): E11.29 - TYPE 2 DIABETES MELLITUS W OTH DIABETIC KIDNEY COMPLICATION (3) Osteomyelitis Code(s): M86.9 - OSTEOMYELITIS, UNSPECIFIED Qualifiers: (4) Acquired absence of left foot Code(s): Z89.432 - ACQUIRED ABSENCE OF LEFT FOOT (5) Acquired absence of right foot Code(s): Z89.431 - ACQUIRED ABSENCE OF RIGHT FOOT (6) Acute kidney failure Code(s): N17.9 - ACUTE KIDNEY FAILURE, UNSPECIFIED (7) Acute on chronic systolic (congestive) heart failure Code(s): I50.23 - ACUTE ON CHRONIC SYSTOLIC (CONGESTIVE) HEART FAILURE (8) CAD (coronary artery disease) Code(s): I25.10 - ATHSCL HEART DISEASE OF [place] CORONARY ARTERY W/O ANG PCTRS (9) [employer] current use of anticoagulant Code(s): Z79.01 - 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 OF ANTICOAGULANTS (10) [facility] current use of aspirin Code(s): Z79.82 - 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 OF ASPIRIN (11) [facility] current use of insulin Code(s): Z79.4 - 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 OF INSULIN (12) Type 2 diabetes mellitus with foot ulcer Code(s): E11.621 - TYPE 2 DIABETES MELLITUS WITH FOOT ULCER L97.509 - NON-PRESSURE CHRONIC ULCER OTH PRT UNSP FOOT W UNSP SEVERITY (13) Hyperlipemia Code(s): E78.5 - HYPERLIPIDEMIA, UNSPECIFIED (14) Hypertension Code(s): I10 - ESSENTIAL (PRIMARY) HYPERTENSION (15) Noncompliance with medication regimen Code(s): Z91.14 - PATIENT'S OTHER NONCOMPLIANCE WITH MEDICATION REGIMEN (16) PAD (peripheral artery disease) Code(s): I73.9 - PERIPHERAL VASCULAR DISEASE, UNSPECIFIED (17) Peripheral neuropathy Code(s): G62.9 - POLYNEUROPATHY, UNSPECIFIED Assessment/Plan No surgical intervention needed at tis time Local wound care consisting of Santyl dressing daily while in house IV ABX as per Infxs disease for Osteomyelitis Will follow
[2016-07-12] MEDS ORDERED: ASPIRIN 81 MG CHEWABLE TABLETS ONE (20:59)
[2016-07-12] MEDS: ATORVASTATIN CA 20 MG TABLET (FP) PO SCH (21:30)
[2016-07-13] MEDS: MAG HYDROX/AL HYDROX/SIMETH 30 ML UNIT-DOSE CUP PO SCH ×4 (00:57→18:39)
[2016-07-13] MEDS: INSULIN SLIDING SCALE (NOVOLOG) 1 VIAL SQ SCH ×4 (06:11→21:43)
[2016-07-13] MEDS: FUROSEMIDE 40 MG/4 ML INJECTABLE VIAL IVPUSH SCH (07:03)
[2016-07-13] MEDS: FUROSEMIDE 40 MG TABLET (FP) PO SCH ×2 (07:04→15:49)
[2016-07-13] MEDS: SEVELAMER CARBONATE 800 MG TAB (FP) PO SCH ×3 (08:38→17:47)
[2016-07-13] MEDS: DIVALPROEX SODIUM 250 MG TABLET E.C. (FP) PO SCH ×2 (09:29→21:43)
[2016-07-13] MEDS: CARVEDILOL 12.5 MG TABLET (FP) PO SCH ×2 (09:29→21:38)
[2016-07-13] MEDS: SIMETHICONE 80 MG TAB.CHEW (FP) PO SCH ×4 (09:29→21:43)
[2016-07-13] MEDS: CITALOPRAM HYDROBROMIDE 20 MG TABLET (FP) PO SCH (09:29)
[2016-07-13] MEDS: CLOPIDOGREL BISULFATE 75 MG TABLET (FP) PO SCH (09:29)
[2016-07-13] MEDS: HEPARIN NA (PORCINE) 5,000 UNITS/ML 1ML VIAL SQ SCH ×2 (09:31→21:43)
[2016-07-13] MEDS: levETIRAcetam XR 500 MG TAB PO SCH (09:31)
--- NOTE | 2016-07-13 10:01 | PN ---
Progress Note, Physician Chief Complaint: seen and examined, no distress laying flat History of Present Illness: TELE: NSR, NSST changes, rare VPCs - Current Medication List Current Medications: Active Medications Acetaminophen (Tylenol -) 650 mg PO Q4H PRN PRN Reason: FEVER OR PAIN Al Hydroxide/Mg Hydroxide (Mylanta Oral Suspension -) 30 ml PO Q6HPO [facility] Last Admin: 07/13/16 06:11 Dose: Not Given Atorvastatin Calcium (Lipitor -) 20 mg PO HS [facility] Last Admin: 07/12/16 21:30 Dose: Not Given Calcitriol (Rocaltrol -) 0.25 mcg PO DAILY [facility] Last Admin: 07/12/16 10:37 Dose: Not Given Carvedilol (Coreg -) 12.5 mg PO BID [facility] Last Admin: 07/13/16 09:29 Dose: 12.5 mg Citalopram Hydrobromide (Celexa -) 20 mg PO DAILY [facility] Last Admin: 07/13/16 09:29 Dose: Not Given Clopidogrel Bisulfate (Plavix -) 75 mg PO DAILY [facility] Last Admin: 07/13/16 09:29 Dose: 75 mg Divalproex Sodium (Depakote -) 250 mg PO BID [facility] Last Admin: 07/13/16 09:29 Dose: Not Given Furosemide (Lasix -) 40 mg PO BIDLASIX [facility] Last Admin: 07/13/16 07:04 Dose: 40 mg Heparin Sodium (Porcine) (Heparin -) 5,000 unit SQ BID [facility] Last Admin: 07/13/16 09:31 Dose: Not Given Insulin Aspart (Novolog Vial Sliding Scale -) 1 vial SQ ACHS [facility] PRN Reason: Protocol Last Admin: 07/13/16 06:11 Dose: Not Given Levetiracetam (Keppra Xr -) 500 mg PO DAILY [facility] Last Admin: 07/13/16 09:31 Dose: Not Given Sevelamer Carbonate (Renvela -) 800 mg PO TIDCM [facility] Last Admin: 07/13/16 08:38 Dose: Not Given Simethicone (Mylicon -) 80 mg PO QID [facility] Last Admin: 07/13/16 09:29 Dose: Not Given - Objective Vital Signs: Vital Signs Temperature 98.0 F 07/12/16 19:00 Pulse Rate 69 07/13/16 06:00 Respiratory Rate 20 07/13/16 06:00 Blood Pressure 106/54 07/13/16 06:00 O2 Sat by Pulse Oximetry (%) 96 07/12/16 21:00 Constitutional: Yes: No Distress Cardiovascular: Yes: Regular Rate and Rhythm Respiratory: Yes: Other (decreased breath sounds left base, overall improved) Gastrointestinal: Yes: Soft Edema: Yes Edema: LLE: 1+, RLE: 1+ Neurological: Yes: Alert, Oriented Labs: CBC, BMP 07/12/16 11:00 07/12/16 11:00 Laboratory Tests 07/12/16 07/12/16 11:00 11:00 WBC 3.7 L Hgb 8.2 L Plt Count 230 Potassium 3.9 Creatinine 2.6 H - ....Imaging EKG: Image Reviewed Assessment/Plan Ischemic CM s/p CABG, chronic systolic CHF with acute exacerbation CKD, stage III/IV Chronic wounds, [place] Extremities Anemia and h/o guaiac + stool REC: Agree with increasing maintenance dose Lasix to 40mg PO BID and monitoring renal fxn closely. At this time, he is at high risk of progression to overt renal failure requiring HD with cardiac cath. He strongly prefers medical Rx and does not want invasive procedures that may precipitate HD. Continue medical Rx.
[2016-07-13] MEDS: CALCITRIOL 0.25 MCG CAPSULE (FP) PO SCH (10:22)
--- NOTE | 2016-07-13 14:51 | PN ---
Progress Note, Physician Chief Complaint: AWAKE ALERT 1STT MEDICAL ENCOUNTER WITH THIS PATIENT CHART AND EVENTS REVIEWED - Current Medication List Current Medications: Active Medications Acetaminophen (Tylenol -) 650 mg PO Q4H PRN PRN Reason: FEVER OR PAIN Al Hydroxide/Mg Hydroxide (Mylanta Oral Suspension -) 30 ml PO Q6HPO [facility] Last Admin: 07/13/16 13:14 Dose: Not Given Atorvastatin Calcium (Lipitor -) 20 mg PO HS [facility] Last Admin: 07/12/16 21:30 Dose: Not Given Calcitriol (Rocaltrol -) 0.25 mcg PO DAILY [facility] Last Admin: 07/13/16 10:22 Dose: Not Given Carvedilol (Coreg -) 12.5 mg PO BID [facility] Last Admin: 07/13/16 09:29 Dose: 12.5 mg Citalopram Hydrobromide (Celexa -) 20 mg PO DAILY [facility] Last Admin: 07/13/16 09:29 Dose: Not Given Clopidogrel Bisulfate (Plavix -) 75 mg PO DAILY [facility] Last Admin: 07/13/16 09:29 Dose: 75 mg Collagenase (Santyl -) 1 applic TP DAILY [facility] Divalproex Sodium (Depakote -) 250 mg PO BID [facility] Last Admin: 07/13/16 09:29 Dose: Not Given Furosemide (Lasix -) 40 mg PO BIDLASIX [facility] Last Admin: 07/13/16 07:04 Dose: 40 mg Heparin Sodium (Porcine) (Heparin -) 5,000 unit SQ BID [facility] Last Admin: 07/13/16 09:31 Dose: Not Given Insulin Aspart (Novolog Vial Sliding Scale -) 1 vial SQ ACHS [facility] PRN Reason: Protocol Last Admin: 07/13/16 13:12 Dose: Not Given Levetiracetam (Keppra Xr -) 500 mg PO DAILY [facility] Last Admin: 07/13/16 09:31 Dose: Not Given Sevelamer Carbonate (Renvela -) 800 mg PO TIDCM [facility] Last Admin: 07/13/16 13:14 Dose: Not Given Simethicone (Mylicon -) 80 mg PO QID [facility] Last Admin: 07/13/16 09:29 Dose: Not Given - Objective Vital Signs: Vital Signs Temperature 97.8 F 07/13/16 10:00 Pulse Rate 68 07/13/16 10:00 Respiratory Rate 20 07/13/16 10:00 Blood Pressure 110/64 07/13/16 10:00 O2 Sat by Pulse Oximetry (%) 96 07/13/16 10:00 Constitutional: Yes: No Distress Eyes: Yes: WNL HENT: Yes: WNL Neck: Yes: WNL Cardiovascular: Yes: Pulse Irregular Respiratory: Yes: WNL Gastrointestinal: Yes: WNL Genitourinary: Yes: WNL Musculoskeletal: Yes: Muscle Weakness Extremities: Yes: Amputation, Deformity Edema: Yes Edema: LLE: 1+, RLE: 1+ Peripheral Pulses WNL: Yes Integumentary: Yes: Pressure Ulcer, Venous Stasis Changes, Other Wound/Incision: Yes: Dressing Dry and Intact, Draining, Reddened, Unapproximated , Other Neurological: Yes: Unsteady Gait, Weakness Psychiatric: Yes: Agitated Labs: CBC, BMP 07/12/16 11:00 07/12/16 11:00 Problem List - Problems (1) CHF exacerbation Code(s): I50.9 - HEART FAILURE, UNSPECIFIED Qualifiers: Congestive heart failure type: unspecified congestive heart failure type Qualified Code(s): I50.9 - Heart failure, unspecified (2) Cellulitis and abscess of foot Code(s): L03.119 - CELLULITIS OF UNSPECIFIED PART OF LIMB L02.619 - CUTANEOUS ABSCESS OF UNSPECIFIED FOOT (3) Elevated troponin I measurement Code(s): R79.89 - OTHER SPECIFIED ABNORMAL FINDINGS OF BLOOD CHEMISTRY (4) Glaucoma Code(s): H40.9 - UNSPECIFIED GLAUCOMA (5) 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 complication Code(s): E11.29 - TYPE 2 DIABETES MELLITUS W OTH DIABETIC KIDNEY COMPLICATION (6) Osteomyelitis Code(s): M86.9 - OSTEOMYELITIS, UNSPECIFIED Qualifiers: (7) Acquired absence of left foot Code(s): Z89.432 - ACQUIRED ABSENCE OF LEFT FOOT (8) PAD (peripheral artery disease) Code(s): I73.9 - PERIPHERAL VASCULAR DISEASE, UNSPECIFIED (9) Peripheral neuropathy Code(s): G62.9 - POLYNEUROPATHY, UNSPECIFIED Assessment/Plan IV LASIX 02 SUPPORT CARDIOLOGY AND PULMONARY EVAL COLLAGENASE TO HEEL WOUND OOB TO CHAIR DIET DISCUSSED WITH ADA/LOW SODIUM RENAL EVAL
--- NOTE | 2016-07-13 16:57 | CONSULT ---
Consult Consult Specialty:: endocrine\diabetes mellitus Referred by:: Reason for Consultation:: diabetes mellitus - History of Present Illness Chief Complaint: low blood sugars History of Present Illness: 61 y male,pmh iddm,ckd,cabg,pad,diabetic foot ulcers,chronic wound infection,htn ,admitted with chf,fluid retention,dyspnea,on slight exertion,low blood sugar, feeling weak,poor appetite unable to properly control diabetes given poor appetite and shortness of breath - History Source History Provided By: Patient - Past Medical History SAP BW CONSULTANT: Yes: Peripheral Neuropathy Cardio/Vascular: Yes: CAD (CABG 2009., stents x5), CHF, HTN Pulmonary: Yes: COPD Gastrointestinal: Yes: Constipation Endocrine: Yes: Diabetes Mellitus - Past Surgical History Past Surgical History: Yes: Amputation (left TMT, right 1st and 2nd toes), CABG (2009 at [facility]) - Alcohol/Substance Use Hx Alcohol Use: No - Smoking History Smoking history: Never smoked Have you smoked in the past 12 months: No Aproximately how many cigarettes per day: 0 - Social History ADL: Independent 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 Home Medications - Allergies Allergies/Adverse Reactions: Allergies Allergy/AdvReac Type Severity Reaction Status Date / Time banana Allergy Verified 07/10/16 10:42 No Known Drug Allergies Allergy Verified 07/10/16 10:42 - Home Medications Home Medications: Ambulatory Orders Acetaminophen 325 mg PO Q6H PRN 06/22/16 Ascorbate Calcium [Vitamin C] 500 mg PO DAILY 06/22/16 Calcitriol [Calcitriol -] 0.25 mcg PO DAILY 06/22/16 Carvedilol [Coreg] 12.5 mg PO DAILY 06/22/16 Citalopram Hydrobromide [Citalopram HBr] 20 mg PO DAILY 06/22/16 Clopidogrel Bisulfate [Clopidogrel] 75 mg PO DAILY 06/22/16 Divalproex [Depakote -] 250 mg PO BID 06/22/16 Insulin Glargine,Hum.rec.anlog [Lantus (10mL VIAL) -] 6 units SQ HS 06/22/16 Insulin Lispro [Humalog] 2 unit SQ TID 06/22/16 Levetiracetam [Keppra Xr -] 500 mg PO DAILY 06/22/16 Sevelamer HCl [Renagel] 800 mg PO TID 06/22/16 Atorvastatin Ca [Lipitor] 20 mg PO HS #30 tablet 06/29/16 Furosemide [Lasix -] 80 mg PO DAILY #60 tablet 06/29/16 Unobtainable 07/10/16 Family Disease History - Family Disease History Family Disease History: Diabetes: Sister Review of Systems - Review of Systems Constitutional: reports: Lethargy, Loss of Appetite, Weakness Eyes: reports: Blurred Vision HENT: reports: No Symptoms, Throat Pain Neck: reports: No Symptoms, Decreased ROM Cardiovascular: reports: Shortness of Breath Respiratory: reports: Exercise Intolerance, SOB on Exertion Gastrointestinal: reports: Constipation Genitourinary: reports: No Symptoms Musculoskeletal: reports: Muscle Cramps, Muscle Weakness Integumentary: reports: Wound Endocrine: reports: Unexplained Weight Gain Hematology/Lymphatic: reports: No Symptoms Physical Exam Vital Signs: Vital Signs Temperature 97.8 F 07/13/16 10:00 Pulse Rate 68 07/13/16 10:00 Respiratory Rate 20 07/13/16 10:00 Blood Pressure 110/64 07/13/16 10:00 O2 Sat by Pulse Oximetry (%) 96 07/13/16 10:00 Constitutional: Yes: Anxious Eyes: Yes: EOM Intact HENT: Yes: Normocephalic Neck: Yes: Trachea Midline Cardiovascular: Yes: Tachycardia Respiratory: Yes: Rales, SOB Gastrointestinal: Yes: Normal Bowel Sounds ...Rectal Exam: Yes: Deferred Renal/: Yes: WNL Breast(s): Yes: WNL Extremities: Yes: Amputation (toes absent surgery) Edema: Yes Edema: LLE: 2+, RLE: 2+ Labs: CBC, BMP 07/12/16 11:00 07/12/16 11:00 Problem List - Problems (1) CHF exacerbation Code(s): I50.9 - HEART FAILURE, UNSPECIFIED Qualifiers: Congestive heart failure type: unspecified congestive heart failure type Qualified Code(s): I50.9 - Heart failure, unspecified (2) 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 complication Code(s): E11.29 - TYPE 2 DIABETES MELLITUS W OTH DIABETIC KIDNEY COMPLICATION (3) Osteomyelitis Code(s): M86.9 - OSTEOMYELITIS, UNSPECIFIED Qualifiers: (4) ACS (acute coronary syndrome) Code(s): I24.9 - ACUTE ISCHEMIC HEART DISEASE, UNSPECIFIED Assessment/Plan Past Problems Pancreatitis (Resolved) Current Active Problems CHF exacerbation (Acute) Cellulitis and abscess of foot (Acute) Elevated troponin I measurement (Acute) Glaucoma (Acute) 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 complication (Acute) Osteomyelitis (Chronic) Laboratory Results - last 24 hr 07/11/16 07/12/16 07/13/16 10:27 20:11 05:22 POC Glucometer [id number] 74 70 Laboratory Tests 07/11/16 07/12/16 07/12/16 06:00 11:00 20:11 Sodium 140 Potassium 3.9 Chloride 104 Carbon Dioxide 29 Anion Gap 7 L Creatinine 2.6 H Creat Clearance w eGFR 25.05 POC Glucometer 74 Random Glucose 58 L D Hemoglobin A1c % 6.6 H D Total Protein 6.2 L Albumin 2.6 L Current Medications Generic Name Dose Route Start Last Admin Trade Name Freq PRN Reason Stop Dose Admin Acetaminophen 650 mg 07/10/16 19:52 Tylenol - PO Q4H PRN FEVER OR PAIN Al Hydroxide/Mg Hydroxide 30 ml 07/11/16 18:00 07/13/16 13:14 Mylanta Oral Suspension - PO Not Given Q6HPO [facility] Atorvastatin Calcium 20 mg 07/10/16 22:00 07/12/16 21:30 Lipitor - PO Not Given HS [facility] Calcitriol 0.25 mcg 07/11/16 10:00 07/13/16 10:22 Rocaltrol - PO Not Given DAILY [facility]AME Carvedilol 12.5 mg 07/10/16 22:00 07/13/16 09:29 Coreg - PO 12.5 mg BID MAAME Administration Citalopram Hydrobromide 20 mg 07/11/16 10:00 07/13/16 09:29 Celexa - PO Not Given DAILY [facility]AME Clopidogrel Bisulfate 75 mg 07/11/16 10:00 07/13/16 09:29 Plavix - PO 75 mg DAILY [facility]AME Administration Collagenase 1 applic 07/13/16 15:00 Santyl - TP DAILY [facility] Divalproex Sodium 250 mg 07/10/16 22:00 07/13/16 09:29 Depakote - PO Not Given BID [facility] Furosemide 40 mg 07/13/16 07:00 07/13/16 15:49 Lasix - PO 40 mg BIDLASIX [facility]AME Administration Heparin Sodium (Porcine) 5,000 unit 07/10/16 22:00 07/13/16 09:31 Heparin - SQ Not Given BID [facility] Insulin Aspart 1 vial 07/11/16 16:30 07/13/16 13:12 Novolog Vial Sliding Scale - SQ Not Given ACHS [facility] Protocol Levetiracetam 500 mg 07/11/16 10:00 07/13/16 09:31 Keppra Xr - PO Not Given DAILY [facility] Sevelamer Carbonate 800 mg 07/11/16 08:00 07/13/16 13:14 Renvela - PO Not Given TIDCM [facility] Simethicone 80 mg 07/11/16 18:00 07/13/16 15:29 Mylicon - PO Not Given QID [facility] plan: continue with bgm novolog coverage while sugars remain low will withold long acting insulin may use low dose januvia 25mg daily once bs rise Levemir 10 units q am if sugar over 150mg/dl
[2016-07-13] MEDS: COLLAGENASE CLOSTRIDIUM HIST. 30 GRAMS TUBE TP SCH (17:48)
[2016-07-13] MEDS ORDERED: PT OWN MED DRAWER 7, Y5N ONE ×2 (21:34→21:47)
[2016-07-13] MEDS: ATORVASTATIN CA 20 MG TABLET (FP) PO SCH (21:43)
[2016-07-14] MEDS: MAG HYDROX/AL HYDROX/SIMETH 30 ML UNIT-DOSE CUP PO SCH ×4 (00:30→17:04)
[2016-07-14] MEDS: FUROSEMIDE 40 MG TABLET (FP) PO SCH (05:43)
[2016-07-14] MEDS: INSULIN SLIDING SCALE (NOVOLOG) 1 VIAL SQ SCH ×4 (06:02→21:55)
[2016-07-14] MEDS ORDERED: FUROSEMIDE 40 MG TABLET (FP) PO ONE (06:30)
[2016-07-14] MEDS: SEVELAMER CARBONATE 800 MG TAB (FP) PO SCH ×3 (08:19→16:46)
[2016-07-14] MEDS: CITALOPRAM HYDROBROMIDE 20 MG TABLET (FP) PO SCH (09:23)
[2016-07-14] MEDS: DIVALPROEX SODIUM 250 MG TABLET E.C. (FP) PO SCH ×2 (09:23→21:55)
[2016-07-14] MEDS: levETIRAcetam XR 500 MG TAB PO SCH (09:23)
[2016-07-14] MEDS: SIMETHICONE 80 MG TAB.CHEW (FP) PO SCH ×4 (09:23→21:55)
[2016-07-14] MEDS: CARVEDILOL 12.5 MG TABLET (FP) PO SCH ×2 (09:23→21:54)
[2016-07-14] MEDS: HEPARIN NA (PORCINE) 5,000 UNITS/ML 1ML VIAL SQ SCH ×2 (09:23→21:55)
[2016-07-14] MEDS: CLOPIDOGREL BISULFATE 75 MG TABLET (FP) PO SCH (09:23)
[2016-07-14] MEDS: CALCITRIOL 0.25 MCG CAPSULE (FP) PO SCH (09:24)
--- NOTE | 2016-07-14 09:37 | PN ---
Progress Note, Physician Chief Complaint: patient states he wason lasix 40 BID at home and it did not work - Current Medication List Current Medications: Active Medications Acetaminophen (Tylenol -) 650 mg PO Q4H PRN PRN Reason: FEVER OR PAIN Al Hydroxide/Mg Hydroxide (Mylanta Oral Suspension -) 30 ml PO Q6HPO [facility] Last Admin: 07/14/16 05:43 Dose: Not Given Atorvastatin Calcium (Lipitor -) 20 mg PO HS [facility] Last Admin: 07/13/16 21:43 Dose: Not Given Calcitriol (Rocaltrol -) 0.25 mcg PO DAILY [facility] Last Admin: 07/14/16 09:24 Dose: Not Given Carvedilol (Coreg -) 12.5 mg PO BID [facility] Last Admin: 07/14/16 09:23 Dose: Not Given Citalopram Hydrobromide (Celexa -) 20 mg PO DAILY [facility] Last Admin: 07/14/16 09:23 Dose: Not Given Clopidogrel Bisulfate (Plavix -) 75 mg PO DAILY [facility] Last Admin: 07/14/16 09:23 Dose: Not Given Collagenase (Santyl -) 1 applic TP DAILY [facility] Last Admin: 07/13/16 17:48 Dose: Not Given Divalproex Sodium (Depakote -) 250 mg PO BID [facility] Last Admin: 07/14/16 09:23 Dose: Not Given Furosemide (Lasix -) 40 mg PO BIDLASIX [facility] Last Admin: 07/14/16 05:43 Dose: Not Given Heparin Sodium (Porcine) (Heparin -) 5,000 unit SQ BID [facility] Last Admin: 07/14/16 09:23 Dose: Not Given Insulin Aspart (Novolog Vial Sliding Scale -) 1 vial SQ ACHS [facility] PRN Reason: Protocol Last Admin: 07/14/16 06:02 Dose: Not Given Levetiracetam (Keppra Xr -) 500 mg PO DAILY [facility] Last Admin: 07/14/16 09:23 Dose: Not Given Sevelamer Carbonate (Renvela -) 800 mg PO TIDCM [facility] Last Admin: 07/14/16 08:19 Dose: Not Given Simethicone (Mylicon -) 80 mg PO QID [facility] Last Admin: 07/14/16 09:23 Dose: Not Given - Objective Vital Signs: Vital Signs Temperature 98.5 F 07/14/16 06:00 Pulse Rate 67 07/14/16 06:00 Respiratory Rate 18 07/14/16 06:00 Blood Pressure 109/61 07/14/16 06:00 O2 Sat by Pulse Oximetry (%) 94 L 07/13/16 21:00 Constitutional: Yes: No Distress Cardiovascular: Yes: Regular Rate and Rhythm Respiratory: Yes: Other (bibasilar rales) Gastrointestinal: Yes: Soft Edema: No Neurological: Yes: Alert ...Motor Strength: WNL Labs: CBC, BMP 07/12/16 11:00 07/12/16 11:00 Assessment/Plan Assessment/Plan Ischemic CM s/p CABG, chronic systolic CHF with acute exacerbation CKD, stage III/IV Chronic wounds, Lowe Extremities Anemia and h/o guaiac + stool REC: Still w/ rales: increase Lasix 60mg PO BID, follow renal fxn daily. At this time, he is at high risk of progression to overt renal failure requiring HD with cardiac cath. He strongly prefers medical Rx and does not want invasive procedures that may precipitate HD. Continue medical Rx.
--- NOTE | 2016-07-14 12:09 | PN ---
Progress Note, Physician Chief Complaint: AWAKE ALERT 1STT MEDICAL ENCOUNTER WITH THIS PATIENT CHART AND EVENTS REVIEWED - Current Medication List Current Medications: Active Medications Acetaminophen (Tylenol -) 650 mg PO Q4H PRN PRN Reason: FEVER OR PAIN Al Hydroxide/Mg Hydroxide (Mylanta Oral Suspension -) 30 ml PO Q6HPO [facility] Last Admin: 07/14/16 11:35 Dose: Not Given Atorvastatin Calcium (Lipitor -) 20 mg PO HS [facility] Last Admin: 07/13/16 21:43 Dose: Not Given Calcitriol (Rocaltrol -) 0.25 mcg PO DAILY [facility] Last Admin: 07/14/16 09:24 Dose: Not Given Carvedilol (Coreg -) 12.5 mg PO BID [facility] Last Admin: 07/14/16 09:23 Dose: Not Given Citalopram Hydrobromide (Celexa -) 20 mg PO DAILY [facility] Last Admin: 07/14/16 09:23 Dose: Not Given Clopidogrel Bisulfate (Plavix -) 75 mg PO DAILY [facility] Last Admin: 07/14/16 09:23 Dose: Not Given Collagenase (Santyl -) 1 applic TP DAILY [facility] Last Admin: 07/13/16 17:48 Dose: Not Given Divalproex Sodium (Depakote -) 250 mg PO BID [facility] Last Admin: 07/14/16 09:23 Dose: Not Given Furosemide (Lasix -) 60 mg PO BID@0600,1400 [facility] Heparin Sodium (Porcine) (Heparin -) 5,000 unit SQ BID [facility] Last Admin: 07/14/16 09:23 Dose: Not Given Insulin Aspart (Novolog Vial Sliding Scale -) 1 vial SQ ACHS [facility] PRN Reason: Protocol Last Admin: 07/14/16 11:36 Dose: Not Given Levetiracetam (Keppra Xr -) 500 mg PO DAILY [facility] Last Admin: 07/14/16 09:23 Dose: Not Given Sevelamer Carbonate (Renvela -) 800 mg PO TIDCM [facility] Last Admin: 07/14/16 11:36 Dose: Not Given Simethicone (Mylicon -) 80 mg PO QID [facility] Last Admin: 07/14/16 09:23 Dose: Not Given - Objective Vital Signs: Vital Signs Temperature 98.5 F 07/14/16 06:00 Pulse Rate 69 07/14/16 10:00 Respiratory Rate 18 07/14/16 10:00 Blood Pressure 103/52 07/14/16 10:00 O2 Sat by Pulse Oximetry (%) 94 L 07/13/16 21:00 Constitutional: Yes: Mild Distress Eyes: Yes: WNL HENT: Yes: Nasal Congestion Neck: Yes: WNL Cardiovascular: Yes: Pulse Irregular Respiratory: Yes: WNL Gastrointestinal: Yes: WNL Genitourinary: Yes: WNL Musculoskeletal: Yes: Muscle Weakness Extremities: Yes: Amputation, Deformity Edema: Yes Peripheral Pulses WNL: Yes Integumentary: Yes: WNL Wound/Incision: Yes: Dressing Dry and Intact, Unapproximated Neurological: Yes: Unsteady Gait, Other ...Motor Strength: LLE, RLE Psychiatric: Yes: Other Labs: CBC, BMP 07/12/16 11:00 07/12/16 11:00 Problem List - Problems (1) CHF exacerbation Code(s): I50.9 - HEART FAILURE, UNSPECIFIED Qualifiers: Congestive heart failure type: unspecified congestive heart failure type Qualified Code(s): I50.9 - Heart failure, unspecified (2) Cellulitis and abscess of foot Code(s): L03.119 - CELLULITIS OF UNSPECIFIED PART OF LIMB L02.619 - CUTANEOUS ABSCESS OF UNSPECIFIED FOOT (3) Elevated troponin I measurement Code(s): R79.89 - OTHER SPECIFIED ABNORMAL FINDINGS OF BLOOD CHEMISTRY (4) Glaucoma Code(s): H40.9 - UNSPECIFIED GLAUCOMA (5) 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 complication Code(s): E11.29 - TYPE 2 DIABETES MELLITUS W OTH DIABETIC KIDNEY COMPLICATION (6) Osteomyelitis Code(s): M86.9 - OSTEOMYELITIS, UNSPECIFIED Qualifiers: (7) Acquired absence of left foot Code(s): Z89.432 - ACQUIRED ABSENCE OF LEFT FOOT (8) PAD (peripheral artery disease) Code(s): I73.9 - PERIPHERAL VASCULAR DISEASE, UNSPECIFIED (9) Peripheral neuropathy Code(s): G62.9 - POLYNEUROPATHY, UNSPECIFIED Assessment/Plan IV LASIX 02 SUPPORT CARDIOLOGY AND PULMONARY EVAL COLLAGENASE TO HEEL WOUND OOB TO CHAIR DIET DISCUSSED WITH ADA/LOW SODIUM RENAL EVAL
--- NOTE | 2016-07-14 13:43 | CONSULT ---
Consult Consult Specialty:: Nephrology ( [facility]/ [facility]) Referred by:: Dr. Rios Reason for Consultation:: Many thanks for the kind referral. 61 y/o male with Chronic Kidney disease, admitted with acute shortnes of breath and Congestive Heart failure. 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: Peripheral Neuropathy Cardio/Vascular: Yes: CAD (CABG 2009., stents x5), CHF, HTN Pulmonary: Yes: COPD Gastrointestinal: Yes: Constipation Psych: Yes: Anxiety, Depression Endocrine: Yes: Diabetes Mellitus - Past Surgical History Past Surgical History: Yes: Amputation (left TMT, right 1st and 2nd toes), CABG (2009 at [facility]) - Alcohol/Substance Use Hx Alcohol Use: No - Smoking History Smoking history: Never smoked Have you smoked in the past 12 months: No Aproximately how many cigarettes per day: 0 - Social History ADL: Independent 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 Home Medications - Allergies Allergies/Adverse Reactions: Allergies Allergy/AdvReac Type Severity Reaction Status Date / Time banana Allergy Verified 07/10/16 10:42 No Known Drug Allergies Allergy Verified 07/10/16 10:42 - Home Medications Home Medications: Ambulatory Orders Acetaminophen 325 mg PO Q6H PRN 06/22/16 Ascorbate Calcium [Vitamin C] 500 mg PO DAILY 06/22/16 Calcitriol [Calcitriol -] 0.25 mcg PO DAILY 06/22/16 Carvedilol [Coreg] 12.5 mg PO DAILY 06/22/16 Citalopram Hydrobromide [Citalopram HBr] 20 mg PO DAILY 06/22/16 Clopidogrel Bisulfate [Clopidogrel] 75 mg PO DAILY 06/22/16 Divalproex [Depakote -] 250 mg PO BID 06/22/16 Insulin Glargine,Hum.rec.anlog [Lantus (10mL VIAL) -] 6 units SQ HS 06/22/16 Insulin Lispro [Humalog] 2 unit SQ TID 06/22/16 Levetiracetam [Keppra Xr -] 500 mg PO DAILY 06/22/16 Sevelamer HCl [Renagel] 800 mg PO TID 06/22/16 Atorvastatin Ca [Lipitor] 20 mg PO HS #30 tablet 06/29/16 Furosemide [Lasix -] 80 mg PO DAILY #60 tablet 06/29/16 Unobtainable 07/10/16 Family Disease History - Family Disease History Family Disease History: Diabetes: Sister Review of Systems - Review of Systems Neck: reports: No Symptoms Respiratory: reports: Cough, SOB, SOB on Exertion Gastrointestinal: reports: No Symptoms Genitourinary: reports: Urgency Musculoskeletal: reports: Back Pain Neurological: reports: Seizure Psychiatric: reports: Anxiety, Depression Physical Exam Vital Signs: Vital Signs Temperature 98.5 F 07/14/16 06:00 Pulse Rate 69 07/14/16 10:00 Respiratory Rate 18 07/14/16 10:00 Blood Pressure 103/52 07/14/16 10:00 O2 Sat by Pulse Oximetry (%) 94 L 07/13/16 21:00 Constitutional: Yes: Anxious Eyes: Yes: WNL HENT: Yes: Normocephalic Neck: Yes: Trachea Midline Cardiovascular: Yes: S1, S2 Respiratory: Yes: CTA Bilaterally, Diminished Gastrointestinal: Yes: Normal Bowel Sounds, Soft, Abdomen, Obese Musculoskeletal: Yes: Back Pain Extremities: Yes: Amputation Edema: Yes Edema: LLE: Trace, RLE: Trace Neurological: Yes: Alert, Oriented Labs: CBC, BMP 07/12/16 11:00 07/12/16 11:00 Problem List - Problems (1) CHF exacerbation Code(s): I50.9 - HEART FAILURE, UNSPECIFIED Qualifiers: Congestive heart failure type: unspecified congestive heart failure type Qualified Code(s): I50.9 - Heart failure, unspecified (2) Cellulitis and abscess of foot Code(s): L03.119 - CELLULITIS OF UNSPECIFIED PART OF LIMB L02.619 - CUTANEOUS ABSCESS OF UNSPECIFIED FOOT (3) 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 complication Code(s): E11.29 - TYPE 2 DIABETES MELLITUS W OTH DIABETIC KIDNEY COMPLICATION (4) Osteomyelitis Code(s): M86.9 - OSTEOMYELITIS, UNSPECIFIED Qualifiers: (5) Acute kidney failure Code(s): N17.9 - ACUTE KIDNEY FAILURE, UNSPECIFIED (6) CAD (coronary artery disease) Code(s): I25.10 - ATHSCL HEART DISEASE OF [place] CORONARY ARTERY W/O ANG PCTRS (7) Chronic kidney disease, stage 3 (moderate) Code(s): N18.3 - CHRONIC KIDNEY DISEASE, STAGE 3 (MODERATE) (8) Dyspnea Code(s): R06.00 - DYSPNEA, UNSPECIFIED (9) Sepsis Code(s): A41.9 - SEPSIS, UNSPECIFIED ORGANISM Qualifiers: Sepsis type: sepsis due to unspecified organism Qualified Code(s): A41.9 - Sepsis, unspecified organism (10) Type 2 diabetes mellitus with foot ulcer Code(s): E11.621 - TYPE 2 DIABETES MELLITUS WITH FOOT ULCER L97.509 - NON-PRESSURE CHRONIC ULCER OTH PRT UNSP FOOT W UNSP SEVERITY (11) Anemia Code(s): D64.9 - ANEMIA, UNSPECIFIED (12) CHF (congestive heart failure) Code(s): I50.9 - HEART FAILURE, UNSPECIFIED Qualifiers: (13) Diabetes Code(s): E11.9 - TYPE 2 DIABETES MELLITUS WITHOUT COMPLICATIONS Qualifiers: Diabetes mellitus type: type 2 Diabetes mellitus complication detail: with peripheral angiopathy without gangrene (14) Diabetic foot ulcer Code(s): E11.621 - TYPE 2 DIABETES MELLITUS WITH FOOT ULCER L97.509 - NON-PRESSURE CHRONIC ULCER OTH PRT UNSP FOOT W UNSP SEVERITY Qualifiers: Laterality: bilateral (15) Hypertension Code(s): I10 - ESSENTIAL (PRIMARY) HYPERTENSION (16) Peripheral neuropathy Code(s): G62.9 - POLYNEUROPATHY, UNSPECIFIED (17) S/P CABG (coronary artery bypass graft) Code(s): Z95.1 - PRESENCE OF AORTOCORONARY BYPASS GRAFT (18) Uncontrolled diabetes mellitus Code(s): E11.65 - TYPE 2 DIABETES MELLITUS WITH HYPERGLYCEMIA Qualifiers: Diabetes mellitus type: type 2 Diabetes mellitus complication detail: with peripheral angiopathy with gangrene Assessment/Plan 61 y/o male with multiple medical problems. 1. Acute CHF, with elevated Troponin, Acute coronary syndrome being ruled out. 2. Acute Exacerbation of CKD, The patient is refusing blood work. The last blood work is from 2 days ago. 3. Chronic Underlying Microvascular Renal disease, from DM, HTN, CAD Will give IV loop diuretics as ordered. Will monitor the renal functions. Discussed with him the need for periodic lab work. He seems to agrre for tomorrow. Thanks again. Maria R Hidalgo MD
[2016-07-14] MEDS ORDERED: FUROSEMIDE 40 MG TABLET (FP) PO SCH (14:00)
[2016-07-14] MEDS: COLLAGENASE CLOSTRIDIUM HIST. 30 GRAMS TUBE TP SCH (14:04)
[2016-07-14] MEDS: FUROSEMIDE 40 MG/4 ML INJECTABLE VIAL IVPUSH SCH (15:22)
[2016-07-14] MEDS: ATORVASTATIN CA 20 MG TABLET (FP) PO SCH (21:54)
[2016-07-15] MEDS: MAG HYDROX/AL HYDROX/SIMETH 30 ML UNIT-DOSE CUP PO SCH ×4 (00:06→17:17)
[2016-07-15] MEDS: FUROSEMIDE 40 MG/4 ML INJECTABLE VIAL IVPUSH SCH ×2 (06:37→14:30)
[2016-07-15] MEDS: INSULIN SLIDING SCALE (NOVOLOG) 1 VIAL SQ SCH ×4 (06:38→21:36)
--- NOTE | 2016-07-15 08:27 | PN ---
Progress Note, Physician History of Present Illness: FEELS BETTER ON LASIX COMPLIANCE D/W PT - Current Medication List Current Medications: Active Medications Acetaminophen (Tylenol -) 650 mg PO Q4H PRN PRN Reason: FEVER OR PAIN Al Hydroxide/Mg Hydroxide (Mylanta Oral Suspension -) 30 ml PO Q6HPO [facility] Last Admin: 07/15/16 06:38 Dose: Not Given Atorvastatin Calcium (Lipitor -) 20 mg PO HS [facility] Last Admin: 07/14/16 21:54 Dose: 20 mg Calcitriol (Rocaltrol -) 0.25 mcg PO DAILY [facility] Last Admin: 07/14/16 09:24 Dose: Not Given Carvedilol (Coreg -) 12.5 mg PO BID [facility] Last Admin: 07/14/16 21:54 Dose: 12.5 mg Citalopram Hydrobromide (Celexa -) 20 mg PO DAILY [facility] Last Admin: 07/14/16 09:23 Dose: Not Given Clopidogrel Bisulfate (Plavix -) 75 mg PO DAILY [facility] Last Admin: 07/14/16 09:23 Dose: Not Given Collagenase (Santyl -) 1 applic TP DAILY [facility] Last Admin: 07/14/16 14:04 Dose: 1 applic Divalproex Sodium (Depakote -) 250 mg PO BID [facility] Last Admin: 07/14/16 21:55 Dose: Not Given Furosemide (Lasix Injection -) 60 mg IVPUSH BIDLASIX [facility] Last Admin: 07/15/16 06:37 Dose: 60 mg Heparin Sodium (Porcine) (Heparin -) 5,000 unit SQ BID [facility] Last Admin: 07/14/16 21:55 Dose: 5,000 unit Insulin Aspart (Novolog Vial Sliding Scale -) 1 vial SQ ACHS [facility] PRN Reason: Protocol Last Admin: 07/15/16 06:38 Dose: Not Given Levetiracetam (Keppra Xr -) 500 mg PO DAILY [facility] Last Admin: 07/14/16 09:23 Dose: Not Given Sevelamer Carbonate (Renvela -) 800 mg PO TIDCM [facility] Last Admin: 07/14/16 16:46 Dose: Not Given Simethicone (Mylicon -) 80 mg PO QID [facility] Last Admin: 07/14/16 21:55 Dose: Not Given - Objective Vital Signs: Vital Signs Temperature 98.5 F 07/14/16 06:00 Pulse Rate 72 07/15/16 06:00 Respiratory Rate 16 07/15/16 06:00 Blood Pressure 101/43 07/15/16 06:00 O2 Sat by Pulse Oximetry (%) 95 07/14/16 22:00 Cardiovascular: Yes: S1, S2 Respiratory: Yes: Rales Gastrointestinal: Yes: Normal Bowel Sounds, Soft Labs: CBC, BMP 07/12/16 11:00 07/12/16 11:00 Problem List - Problems (1) CHF exacerbation Assessment/Plan: IV LASIX MONITOR LYTES AND CXR Code(s): I50.9 - HEART FAILURE, UNSPECIFIED Qualifiers: Congestive heart failure type: unspecified congestive heart failure type Qualified Code(s): I50.9 - Heart failure, unspecified (2) Elevated troponin I measurement Assessment/Plan: CARDIO ON BOARD MONITOR Code(s): R79.89 - OTHER SPECIFIED ABNORMAL FINDINGS OF BLOOD CHEMISTRY (3) 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 complication Assessment/Plan: BGM Code(s): E11.29 - TYPE 2 DIABETES MELLITUS W OTH DIABETIC KIDNEY COMPLICATION (4) Acute on chronic systolic (congestive) heart failure Assessment/Plan: ABOVE Code(s): I50.23 - ACUTE ON CHRONIC SYSTOLIC (CONGESTIVE) HEART FAILURE (5) Chest pain Assessment/Plan: RESOLVED FOLLOW CE PENDING PER CARDIO Code(s): R07.9 - CHEST PAIN, UNSPECIFIED (6) Wound of lower extremity Assessment/Plan: PODIATRY CONSULT Code(s): S81.809A - UNSPECIFIED OPEN WOUND, UNSPECIFIED LOWER LEG, INIT ENCNTR Qualifiers: Encounter type: sequela Laterality: left Qualified Code(s): S81.802S - Unspecified open wound, left lower leg, sequela
[2016-07-15] MEDS ORDERED: PT OWN MED DRAWER 7, Y5N ONE (09:24)
[2016-07-15] MEDS: SIMETHICONE 80 MG TAB.CHEW (FP) PO SCH ×4 (09:31→21:36)
[2016-07-15] MEDS: CARVEDILOL 12.5 MG TABLET (FP) PO SCH ×2 (09:31→21:31)
[2016-07-15] MEDS: SEVELAMER CARBONATE 800 MG TAB (FP) PO SCH ×3 (09:32→18:00)
[2016-07-15] MEDS: CITALOPRAM HYDROBROMIDE 20 MG TABLET (FP) PO SCH (09:32)
[2016-07-15] MEDS: DIVALPROEX SODIUM 250 MG TABLET E.C. (FP) PO SCH ×2 (09:32→21:36)
[2016-07-15] MEDS: levETIRAcetam XR 500 MG TAB PO SCH (09:33)
[2016-07-15] MEDS: CLOPIDOGREL BISULFATE 75 MG TABLET (FP) PO SCH (09:33)
[2016-07-15] MEDS: CALCITRIOL 0.25 MCG CAPSULE (FP) PO SCH (09:33)
[2016-07-15] MEDS: HEPARIN NA (PORCINE) 5,000 UNITS/ML 1ML VIAL SQ SCH ×2 (09:34→21:36)
--- NOTE | 2016-07-15 10:31 | PN ---
Progress Note, Physician History of Present Illness: seen and examined today in nad. no overnight events. no new complaints. states he is feeling better but not back to baseline. still sob at times. - Current Medication List Current Medications: Active Medications Acetaminophen (Tylenol -) 650 mg PO Q4H PRN PRN Reason: FEVER OR PAIN Al Hydroxide/Mg Hydroxide (Mylanta Oral Suspension -) 30 ml PO Q6HPO [facility] Last Admin: 07/15/16 06:38 Dose: Not Given Atorvastatin Calcium (Lipitor -) 20 mg PO HS [facility] Last Admin: 07/14/16 21:54 Dose: 20 mg Calcitriol (Rocaltrol -) 0.25 mcg PO DAILY [facility] Last Admin: 07/15/16 09:33 Dose: 0.25 mcg Carvedilol (Coreg -) 12.5 mg PO BID [facility] Last Admin: 07/15/16 09:31 Dose: 12.5 mg Citalopram Hydrobromide (Celexa -) 20 mg PO DAILY [facility] Last Admin: 07/15/16 09:32 Dose: Not Given Clopidogrel Bisulfate (Plavix -) 75 mg PO DAILY [facility] Last Admin: 07/15/16 09:33 Dose: Not Given Collagenase (Santyl -) 1 applic TP DAILY [facility] Last Admin: 07/14/16 14:04 Dose: 1 applic Divalproex Sodium (Depakote -) 250 mg PO BID [facility] Last Admin: 07/15/16 09:32 Dose: Not Given Furosemide (Lasix Injection -) 60 mg IVPUSH BIDLASIX [facility] Last Admin: 07/15/16 06:37 Dose: 60 mg Heparin Sodium (Porcine) (Heparin -) 5,000 unit SQ BID [facility] Last Admin: 07/15/16 09:34 Dose: Not Given Insulin Aspart (Novolog Vial Sliding Scale -) 1 vial SQ ACHS [facility] PRN Reason: Protocol Last Admin: 07/15/16 06:38 Dose: Not Given Levetiracetam (Keppra Xr -) 500 mg PO DAILY [facility] Last Admin: 07/15/16 09:33 Dose: Not Given Sevelamer Carbonate (Renvela -) 800 mg PO TIDCM [facility] Last Admin: 07/15/16 09:32 Dose: 800 mg Simethicone (Mylicon -) 80 mg PO QID [facility] Last Admin: 07/15/16 09:31 Dose: Not Given - Objective Vital Signs: Vital Signs Temperature 98.5 F 07/14/16 06:00 Pulse Rate 71 07/15/16 09:00 Respiratory Rate 18 07/15/16 09:00 Blood Pressure 119/63 07/15/16 09:00 O2 Sat by Pulse Oximetry (%) 94 L 07/15/16 09:00 Constitutional: Yes: No Distress, Calm Eyes: Yes: WNL, Conjunctiva Clear, EOM Intact, PERRL HENT: Yes: WNL, Atraumatic, Normocephalic Neck: Yes: Supple, Trachea Midline Cardiovascular: Yes: Regular Rate and Rhythm, S1, S2. No: Bradycardia, Tachycardia, Pulse Irregular, Bruit, JVD, Gallop, Murmur, Rub, S3, S4, Varicosities Respiratory: Yes: Regular, Diminished, Rales. No: Rhonchi, SOB, Wheezes Gastrointestinal: Yes: WNL, Normal Bowel Sounds, Soft. No: Distention, Tenderness Extremities: Yes: Amputation Edema: Yes Edema: LLE: Trace, RLE: Trace Peripheral Pulses WNL: No Neurological: Yes: Alert, Oriented Psychiatric: Yes: Alert, Oriented Labs: CBC, BMP 07/12/16 11:00 07/12/16 11:00 - ....Imaging Chest X-ray: Report Reviewed, Image Reviewed EKG: Report Reviewed, Image Reviewed Other: Report Reviewed, Image Reviewed (tele-nsr, frequent pvcs, couplets, brief aivr) Assessment/Plan Ischemic CM s/p CABG, chronic systolic CHF with acute exacerbation CKD, stage III/IV Chronic wounds, Lowe Extremities Anemia and h/o guaiac + stool REC: -Volume status improving, still slightly volume overloaded, pulmonary and LE edema are improving -cont Lasix 60mg IV BID -cont to monitor strict I/Os and daily weights -closely monitor bun/creat with diuresis and electrolytes and replete as needed , last chemistry panel was 07/12/16, would check labs today if pt allows -as per previous notes pt prefers medical Rx of his presumed CAD as cardiac cath would be high risk to worsen his CKD and progression to ESRD -cont Plavix, Coreg, Lipitor -need to clarify why Aspirin was stopped, reviewing chart last dose was 06/25/16 on prior admission, if no clear contraindication then would restart it for his CAD
--- NOTE | 2016-07-15 11:02 | PN ---
Progress Note (short form) - Note Progress Note: Podiatry Follow up S/ Patient seen bedside resting comfortably O/ A/A/O x 3 in NAD Wound Left: Clean and dry no purulent drainage noted there is joint fluid noted. NO mal odor no cellulitis no necrotic tissue wounf bed mixed fibro granular, more granulation tissue noted A/ DM wound with chronic OM Left foot Vital Signs Period Temp Pulse Resp BP Sys/Mejia Pulse Ox Last 24 Hr 71-74 16-20 101-124/43-66 94-95 P/ 1) Continue current local wound care 2) When D/C'd to home as per primary team have asad follow up in wound care on Friday afternoon Problem List - Problems (1) CHF exacerbation Code(s): I50.9 - HEART FAILURE, UNSPECIFIED Qualifiers: Congestive heart failure type: unspecified congestive heart failure type Qualified Code(s): I50.9 - Heart failure, unspecified (2) 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 complication Code(s): E11.29 - TYPE 2 DIABETES MELLITUS W OTH DIABETIC KIDNEY COMPLICATION (3) Osteomyelitis Code(s): M86.9 - OSTEOMYELITIS, UNSPECIFIED Qualifiers: (4) Acquired absence of left foot Code(s): Z89.432 - ACQUIRED ABSENCE OF LEFT FOOT (5) Acquired absence of right foot Code(s): Z89.431 - ACQUIRED ABSENCE OF RIGHT FOOT (6) Acute kidney failure Code(s): N17.9 - ACUTE KIDNEY FAILURE, UNSPECIFIED (7) Acute on chronic systolic (congestive) heart failure Code(s): I50.23 - ACUTE ON CHRONIC SYSTOLIC (CONGESTIVE) HEART FAILURE (8) CAD (coronary artery disease) Code(s): I25.10 - ATHSCL HEART DISEASE OF [place] CORONARY ARTERY W/O ANG PCTRS (9) [facility] current use of anticoagulant Code(s): Z79.01 - LONGTERM (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 OF ANTICOAGULANTS (10) [facility] current use of aspirin Code(s): Z79.82 - LONGTERM (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 OF ASPIRIN (11) [facility] current use of insulin Code(s): Z79.4 - SUPERVISOR RECORD PRESS (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 OF INSULIN (12) Type 2 diabetes mellitus with foot ulcer Code(s): E11.621 - TYPE 2 DIABETES MELLITUS WITH FOOT ULCER L97.509 - NON-PRESSURE CHRONIC ULCER OTH PRT UNSP FOOT W UNSP SEVERITY (13) Hyperlipemia Code(s): E78.5 - HYPERLIPIDEMIA, UNSPECIFIED (14) Hypertension Code(s): I10 - ESSENTIAL (PRIMARY) HYPERTENSION (15) Noncompliance with medication regimen Code(s): Z91.14 - PATIENT'S OTHER NONCOMPLIANCE WITH MEDICATION REGIMEN (16) PAD (peripheral artery disease) Code(s): I73.9 - PERIPHERAL VASCULAR DISEASE, UNSPECIFIED (17) Peripheral neuropathy Code(s): G62.9 - POLYNEUROPATHY, UNSPECIFIED
[2016-07-15 11:10] LABS: ALBUMIN 2.9 g/dl (3.4-5.0); BILIRUBIN,TOTAL 0.8 mg/dL (0.2-1.0); CALCIUM 8.7 mg/dL (8.5-10.1); CREATININE 2.3 mg/dL (0.7-1.3); MAGNESIUM 2.2 mg/dL (1.8-2.4); TOT PROT 6.7 g/dl (6.4-8.2)
[2016-07-15] MEDS ORDERED: INSULIN (NOVOLOG) ASPART 100 UNITS/ML 10ML VIAL ONE (11:58)
--- NOTE | 2016-07-15 14:49 | PN ---
Progress Note, Physician Chief Complaint: The patient in bed. Says that he sat for sometime earlier on the bed. No new complaints. Good urine output. No new pains. - Current Medication List Current Medications: Active Medications Acetaminophen (Tylenol -) 650 mg PO Q4H PRN PRN Reason: FEVER OR PAIN Al Hydroxide/Mg Hydroxide (Mylanta Oral Suspension -) 30 ml PO Q6HPO [facility] Last Admin: 07/15/16 12:30 Dose: Not Given Atorvastatin Calcium (Lipitor -) 20 mg PO HS [facility] Last Admin: 07/14/16 21:54 Dose: 20 mg Calcitriol (Rocaltrol -) 0.25 mcg PO DAILY [facility] Last Admin: 07/15/16 09:33 Dose: 0.25 mcg Carvedilol (Coreg -) 12.5 mg PO BID [facility] Last Admin: 07/15/16 09:31 Dose: 12.5 mg Citalopram Hydrobromide (Celexa -) 20 mg PO DAILY [facility] Last Admin: 07/15/16 09:32 Dose: Not Given Clopidogrel Bisulfate (Plavix -) 75 mg PO DAILY [facility] Last Admin: 07/15/16 09:33 Dose: Not Given Collagenase (Santyl -) 1 applic TP DAILY [facility] Last Admin: 07/14/16 14:04 Dose: 1 applic Divalproex Sodium (Depakote -) 250 mg PO BID [facility] Last Admin: 07/15/16 09:32 Dose: Not Given Furosemide (Lasix Injection -) 60 mg IVPUSH BIDLASIX [facility] Last Admin: 07/15/16 14:30 Dose: 60 mg Heparin Sodium (Porcine) (Heparin -) 5,000 unit SQ BID [facility] Last Admin: 07/15/16 09:34 Dose: Not Given Insulin Aspart (Novolog Vial Sliding Scale -) 1 vial SQ ACHS [facility] PRN Reason: Protocol Last Admin: 07/15/16 12:00 Dose: Not Given Levetiracetam (Keppra Xr -) 500 mg PO DAILY [facility] Last Admin: 07/15/16 09:33 Dose: Not Given Sevelamer Carbonate (Renvela -) 800 mg PO TIDCM [facility] Last Admin: 07/15/16 12:00 Dose: Not Given Simethicone (Mylicon -) 80 mg PO QID [facility] Last Admin: 07/15/16 14:29 Dose: Not Given - Objective Vital Signs: Vital Signs Temperature 98.5 F 07/14/16 06:00 Pulse Rate 71 07/15/16 09:00 Respiratory Rate 18 07/15/16 09:00 Blood Pressure 119/63 07/15/16 09:00 O2 Sat by Pulse Oximetry (%) 94 L 07/15/16 09:00 Constitutional: Yes: Well Nourished, Calm Eyes: Yes: Conjunctiva Clear HENT: Yes: WNL Neck: Yes: WNL, Trachea Midline Cardiovascular: Yes: Regular Rate and Rhythm, S1, S2 Respiratory: Yes: Regular, CTA Bilaterally Gastrointestinal: Yes: Normal Bowel Sounds, Soft Extremities: Yes: Other (anant foot amputation) Labs: CBC, BMP 07/12/16 11:00 07/15/16 10:15 Problem List - Problems (1) CHF exacerbation Code(s): I50.9 - HEART FAILURE, UNSPECIFIED Qualifiers: Congestive heart failure type: unspecified congestive heart failure type Qualified Code(s): I50.9 - Heart failure, unspecified (2) Cellulitis and abscess of foot Code(s): L03.119 - CELLULITIS OF UNSPECIFIED PART OF LIMB L02.619 - CUTANEOUS ABSCESS OF UNSPECIFIED FOOT (3) 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 complication Code(s): E11.29 - TYPE 2 DIABETES MELLITUS W OTH DIABETIC KIDNEY COMPLICATION (4) Osteomyelitis Code(s): M86.9 - OSTEOMYELITIS, UNSPECIFIED Qualifiers: (5) Acute kidney failure Code(s): N17.9 - ACUTE KIDNEY FAILURE, UNSPECIFIED (6) CAD (coronary artery disease) Code(s): I25.10 - ATHSCL HEART DISEASE OF [place] CORONARY ARTERY W/O ANG PCTRS (7) Chronic kidney disease, stage 3 (moderate) Code(s): N18.3 - CHRONIC KIDNEY DISEASE, STAGE 3 (MODERATE) (8) Dyspnea Code(s): R06.00 - DYSPNEA, UNSPECIFIED (9) Sepsis Code(s): A41.9 - SEPSIS, UNSPECIFIED ORGANISM Qualifiers: Sepsis type: sepsis due to unspecified organism Qualified Code(s): A41.9 - Sepsis, unspecified organism (10) Type 2 diabetes mellitus with foot ulcer Code(s): E11.621 - TYPE 2 DIABETES MELLITUS WITH FOOT ULCER L97.509 - NON-PRESSURE CHRONIC ULCER OTH PRT UNSP FOOT W UNSP SEVERITY (11) Anemia Code(s): D64.9 - ANEMIA, UNSPECIFIED (12) CHF (congestive heart failure) Code(s): I50.9 - HEART FAILURE, UNSPECIFIED Qualifiers: (13) Diabetes Code(s): E11.9 - TYPE 2 DIABETES MELLITUS WITHOUT COMPLICATIONS Qualifiers: Diabetes mellitus type: type 2 Diabetes mellitus complication detail: with peripheral angiopathy without gangrene (14) Diabetic foot ulcer Code(s): E11.621 - TYPE 2 DIABETES MELLITUS WITH FOOT ULCER L97.509 - NON-PRESSURE CHRONIC ULCER OTH PRT UNSP FOOT W UNSP SEVERITY Qualifiers: Laterality: bilateral (15) Hypertension Code(s): I10 - ESSENTIAL (PRIMARY) HYPERTENSION (16) Peripheral neuropathy Code(s): G62.9 - POLYNEUROPATHY, UNSPECIFIED (17) S/P CABG (coronary artery bypass graft) Code(s): Z95.1 - PRESENCE OF AORTOCORONARY BYPASS GRAFT (18) Uncontrolled diabetes mellitus Code(s): E11.65 - TYPE 2 DIABETES MELLITUS WITH HYPERGLYCEMIA Qualifiers: Diabetes mellitus type: type 2 Diabetes mellitus complication detail: with peripheral angiopathy with gangrene Assessment/Plan 61 y/o male with multiple medical problems. 1. Acute CHF, with elevated Troponin. IV Lasix well tolerated 2. Acute Exacerbation of CKD. Tyhe azotemia is improving towards his baseline. 3. Chronic Underlying Microvascular Renal disease, from DM, HTN, CAD Will give IV loop diuretics as ordered. Will monitor the renal functions. Thanks again. Maria R Hidalgo MD
[2016-07-15 15:11] LABS: BASOPHIL 0.9 % (0-2.0); MCH 29.4 pg (25.7-33.7); MCHC 33.2 g/dl (32.0-35.9); MEAN CELL VOLUME 88.4 fl (80-96); MEAN PLT VOLUME 7.8 fl (7.5-11.1); PLATELET COUNT 254 K/MM3 (134-434); RDW 19.1 % (11.9-15.9); WHITE BLOOD COUNT 3.7 K/mm3 (4.0-10.0)
[2016-07-15] MEDS: COLLAGENASE CLOSTRIDIUM HIST. 30 GRAMS TUBE TP SCH (17:17)
[2016-07-15] MEDS ORDERED: traMADol HCL 50 MG TABLET PO PRN (21:12)
[2016-07-15] MEDS: ATORVASTATIN CA 20 MG TABLET (FP) PO SCH (21:36)
[2016-07-16] MEDS: MAG HYDROX/AL HYDROX/SIMETH 30 ML UNIT-DOSE CUP PO SCH ×4 (00:11→17:12)
[2016-07-16] MEDS: FUROSEMIDE 40 MG/4 ML INJECTABLE VIAL IVPUSH SCH (05:29)
[2016-07-16] MEDS: INSULIN SLIDING SCALE (NOVOLOG) 1 VIAL SQ SCH ×4 (06:02→22:04)
--- NOTE | 2016-07-16 08:36 | PN ---
Progress Note, Physician History of Present Illness: FEELS BETTER ON LASIX COMPLIANCE D/W PT - Current Medication List Current Medications: Active Medications Acetaminophen (Tylenol -) 650 mg PO Q4H PRN PRN Reason: FEVER OR PAIN Al Hydroxide/Mg Hydroxide (Mylanta Oral Suspension -) 30 ml PO Q6HPO [facility] Last Admin: 07/16/16 05:30 Dose: Not Given Atorvastatin Calcium (Lipitor -) 20 mg PO HS [facility] Last Admin: 07/15/16 21:36 Dose: Not Given Calcitriol (Rocaltrol -) 0.25 mcg PO DAILY [facility] Last Admin: 07/15/16 09:33 Dose: 0.25 mcg Carvedilol (Coreg -) 12.5 mg PO BID [facility] Last Admin: 07/15/16 21:31 Dose: 12.5 mg Citalopram Hydrobromide (Celexa -) 20 mg PO DAILY [facility] Last Admin: 07/15/16 09:32 Dose: Not Given Clopidogrel Bisulfate (Plavix -) 75 mg PO DAILY [facility] Last Admin: 07/15/16 09:33 Dose: Not Given Collagenase (Santyl -) 1 applic TP DAILY [facility] Last Admin: 07/15/16 17:17 Dose: 1 applic Divalproex Sodium (Depakote -) 250 mg PO BID [facility] Last Admin: 07/15/16 21:36 Dose: Not Given Furosemide (Lasix Injection -) 60 mg IVPUSH BIDLASIX [facility] Last Admin: 07/16/16 05:29 Dose: 60 mg Heparin Sodium (Porcine) (Heparin -) 5,000 unit SQ BID [facility] Last Admin: 07/15/16 21:36 Dose: Not Given Insulin Aspart (Novolog Vial Sliding Scale -) 1 vial SQ ACHS [facility] PRN Reason: Protocol Last Admin: 07/16/16 06:02 Dose: Not Given Levetiracetam (Keppra Xr -) 500 mg PO DAILY [facility] Last Admin: 07/15/16 09:33 Dose: Not Given Sevelamer Carbonate (Renvela -) 800 mg PO TIDCM [facility] Last Admin: 07/15/16 18:00 Dose: 800 mg Simethicone (Mylicon -) 80 mg PO QID [facility] Last Admin: 07/15/16 21:36 Dose: Not Given Tramadol HCl (Ultram -) 50 mg PO Q8H PRN Last Admin: 07/15/16 21:31 Dose: 50 mg - Objective Vital Signs: Vital Signs Temperature 98.5 F 07/14/16 06:00 Pulse Rate 65 07/16/16 06:21 Respiratory Rate 20 07/16/16 06:21 Blood Pressure 110/59 07/16/16 06:21 O2 Sat by Pulse Oximetry (%) 95 07/15/16 21:00 Cardiovascular: Yes: Regular Rate and Rhythm Respiratory: Yes: Regular, CTA Bilaterally Gastrointestinal: Yes: Normal Bowel Sounds, Soft Edema: Yes Labs: CBC, BMP 07/15/16 14:25 07/15/16 10:15 Problem List - Problems (1) CHF exacerbation Assessment/Plan: IV LASIX--TO PO MONITOR LYTES AND CXR Code(s): I50.9 - HEART FAILURE, UNSPECIFIED Qualifiers: Congestive heart failure type: unspecified congestive heart failure type Qualified Code(s): I50.9 - Heart failure, unspecified (2) Elevated troponin I measurement Assessment/Plan: CARDIO ON BOARD MONITOR Code(s): R79.89 - OTHER SPECIFIED ABNORMAL FINDINGS OF BLOOD CHEMISTRY (3) 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 complication Assessment/Plan: BGM Code(s): E11.29 - TYPE 2 DIABETES MELLITUS W OTH DIABETIC KIDNEY COMPLICATION (4) Acute on chronic systolic (congestive) heart failure Assessment/Plan: ABOVE Code(s): I50.23 - ACUTE ON CHRONIC SYSTOLIC (CONGESTIVE) HEART FAILURE (5) Chest pain Code(s): R07.9 - CHEST PAIN, UNSPECIFIED (6) Wound of lower extremity Assessment/Plan: PODIATRY CONSULT NOTED Code(s): S81.809A - UNSPECIFIED OPEN WOUND, UNSPECIFIED LOWER LEG, INIT ENCNTR Qualifiers: Encounter type: sequela Laterality: left Qualified Code(s): S81.802S - Unspecified open wound, left lower leg, sequela
--- NOTE | 2016-07-16 08:56 | PN ---
Progress Note, Physician Chief Complaint: seen and examined, no distress TELE: reviewed. NSR, NSST changes, PVCs and rare couplets. - Current Medication List Current Medications: Active Medications Acetaminophen (Tylenol -) 650 mg PO Q4H PRN PRN Reason: FEVER OR PAIN Al Hydroxide/Mg Hydroxide (Mylanta Oral Suspension -) 30 ml PO Q6HPO [facility] Last Admin: 07/16/16 05:30 Dose: Not Given Atorvastatin Calcium (Lipitor -) 20 mg PO HS [facility] Last Admin: 07/15/16 21:36 Dose: Not Given Calcitriol (Rocaltrol -) 0.25 mcg PO DAILY [facility] Last Admin: 07/15/16 09:33 Dose: 0.25 mcg Carvedilol (Coreg -) 12.5 mg PO BID [facility] Last Admin: 07/15/16 21:31 Dose: 12.5 mg Citalopram Hydrobromide (Celexa -) 20 mg PO DAILY [facility] Last Admin: 07/15/16 09:32 Dose: Not Given Clopidogrel Bisulfate (Plavix -) 75 mg PO DAILY [facility] Last Admin: 07/15/16 09:33 Dose: Not Given Collagenase (Santyl -) 1 applic TP DAILY [facility] Last Admin: 07/15/16 17:17 Dose: 1 applic Divalproex Sodium (Depakote -) 250 mg PO BID [facility] Last Admin: 07/15/16 21:36 Dose: Not Given Furosemide (Lasix Injection -) 60 mg IVPUSH BIDLASIX [facility] Last Admin: 07/16/16 05:29 Dose: 60 mg Heparin Sodium (Porcine) (Heparin -) 5,000 unit SQ BID [facility] Last Admin: 07/15/16 21:36 Dose: Not Given Insulin Aspart (Novolog Vial Sliding Scale -) 1 vial SQ ACHS [facility] PRN Reason: Protocol Last Admin: 07/16/16 06:02 Dose: Not Given Levetiracetam (Keppra Xr -) 500 mg PO DAILY [facility] Last Admin: 07/15/16 09:33 Dose: Not Given Sevelamer Carbonate (Renvela -) 800 mg PO TIDCM [facility] Last Admin: 07/15/16 18:00 Dose: 800 mg Simethicone (Mylicon -) 80 mg PO QID [facility] Last Admin: 07/15/16 21:36 Dose: Not Given Tramadol HCl (Ultram -) 50 mg PO Q8H PRN Last Admin: 07/15/16 21:31 Dose: 50 mg - Objective Vital Signs: Vital Signs Temperature 98.5 F 07/14/16 06:00 Pulse Rate 65 07/16/16 06:21 Respiratory Rate 20 07/16/16 06:21 Blood Pressure 110/59 07/16/16 06:21 O2 Sat by Pulse Oximetry (%) 95 07/15/16 21:00 Constitutional: Yes: Calm Cardiovascular: Yes: Regular Rate and Rhythm Respiratory: Yes: Other (decreased basilar breath sounds) Gastrointestinal: Yes: Soft Edema: Yes Edema: LLE: 1+, RLE: 1+ Neurological: Yes: Alert, Oriented ...Motor Strength: WNL Labs: CBC, BMP 07/15/16 14:25 07/15/16 10:15 Laboratory Tests 07/15/16 07/15/16 10:15 14:25 WBC 3.7 L Hgb 8.7 L Hct 26.2 L Plt Count 254 Potassium 3.6 Creatinine 2.3 H - ....Imaging EKG: Image Reviewed Assessment/Plan IMP: Acute on chronic systolic CHF, secondary to underlying ischemic cardiomyopathy s /p CABG CKD Anemia REC: Would transition to PO Lasix tomorrow morning: will likely need b/t 60-80mg BID as maintenance. Needs close outpatient monitoring renal function. GFR reduced, makes cath high risk for progression to ESRD, patient prefers medical Rx CAD and CHF at this point.
[2016-07-16] MEDS ORDERED: PT OWN MED DRAWER 7, Y5N ONE (09:27)
[2016-07-16] MEDS: CARVEDILOL 12.5 MG TABLET (FP) PO SCH ×3 (09:33→22:05)
[2016-07-16] MEDS: CITALOPRAM HYDROBROMIDE 20 MG TABLET (FP) PO SCH (09:35)
[2016-07-16] MEDS: DIVALPROEX SODIUM 250 MG TABLET E.C. (FP) PO SCH ×2 (09:35→21:34)
[2016-07-16] MEDS: SEVELAMER CARBONATE 800 MG TAB (FP) PO SCH ×3 (09:35→17:45)
[2016-07-16] MEDS: levETIRAcetam XR 500 MG TAB PO SCH (09:35)
[2016-07-16] MEDS: CLOPIDOGREL BISULFATE 75 MG TABLET (FP) PO SCH (09:35)
[2016-07-16] MEDS: SIMETHICONE 80 MG TAB.CHEW (FP) PO SCH ×4 (09:35→21:35)
[2016-07-16] MEDS: HEPARIN NA (PORCINE) 5,000 UNITS/ML 1ML VIAL SQ SCH ×2 (09:35→21:34)
[2016-07-16] MEDS: CALCITRIOL 0.25 MCG CAPSULE (FP) PO SCH (09:35)
--- NOTE | 2016-07-16 10:32 | PN ---
Progress Note (short form) - Note Progress Note: Renal Follow up for RUBY on CKD Pt seen and examined at the bedside awake and alert has no acute complaints reports that sob is improved but no completely resolved denies any chest pain good urine output Vital Signs Temperature 98.5 F 07/14/16 06:00 Pulse Rate 65 07/16/16 10:00 Respiratory Rate 18 07/16/16 10:00 Blood Pressure 106/60 07/16/16 10:00 O2 Sat by Pulse Oximetry (%) 95 07/16/16 09:00 Vital Signs Temperature 98.5 F 07/14/16 06:00 Pulse Rate 65 07/16/16 10:00 Respiratory Rate 18 07/16/16 10:00 Blood Pressure 106/60 07/16/16 10:00 O2 Sat by Pulse Oximetry (%) 95 07/16/16 09:00 Gen: NAD CVS: RRR, No M/R Lungs: Dec BS lung bases Abd: soft NT/ND Ext: No edema, clubbing or cyanosis. B/L TMA CBC, BMP 07/15/16 14:25 07/15/16 10:15 Current Medications Acetaminophen (Tylenol -) 650 mg PO Q4H PRN PRN Reason: FEVER OR PAIN Al Hydroxide/Mg Hydroxide (Mylanta Oral Suspension -) 30 ml PO Q6HPO [facility] Last Admin: 07/16/16 05:30 Dose: Not Given Atorvastatin Calcium (Lipitor -) 20 mg PO HS [facility] Last Admin: 07/15/16 21:36 Dose: Not Given Calcitriol (Rocaltrol -) 0.25 mcg PO DAILY [facility] Last Admin: 07/16/16 09:35 Dose: Not Given Carvedilol (Coreg -) 12.5 mg PO BID [facility] Last Admin: 07/16/16 09:33 Dose: 12.5 mg Citalopram Hydrobromide (Celexa -) 20 mg PO DAILY [facility] Last Admin: 07/16/16 09:35 Dose: Not Given Clopidogrel Bisulfate (Plavix -) 75 mg PO DAILY [facility] Last Admin: 07/16/16 09:35 Dose: Not Given Collagenase (Santyl -) 1 applic TP DAILY [facility] Last Admin: 07/15/16 17:17 Dose: 1 applic Divalproex Sodium (Depakote -) 250 mg PO BID [facility] Last Admin: 07/16/16 09:35 Dose: Not Given Furosemide (Lasix Injection -) 60 mg IVPUSH BIDLASIX [facility] Last Admin: 07/16/16 05:29 Dose: 60 mg Heparin Sodium (Porcine) (Heparin -) 5,000 unit SQ BID [facility] Last Admin: 07/16/16 09:35 Dose: Not Given Insulin Aspart (Novolog Vial Sliding Scale -) 1 vial SQ ACHS [facility] PRN Reason: Protocol Last Admin: 07/16/16 06:02 Dose: Not Given Levetiracetam (Keppra Xr -) 500 mg PO DAILY [facility] Last Admin: 07/16/16 09:35 Dose: Not Given Sevelamer Carbonate (Renvela -) 800 mg PO TIDCM [facility] Last Admin: 07/16/16 09:35 Dose: Not Given Simethicone (Mylicon -) 80 mg PO QID [facility] Last Admin: 07/16/16 09:35 Dose: Not Given Tramadol HCl (Ultram -) 50 mg PO Q8H PRN Last Admin: 07/15/16 21:31 Dose: 50 mg A/P 61 year old Gentleman with PMhx of RUBY (ATN), CKD, CAD, CHF, PVD, IDDM presented with SOB and chest pain and admitted for CHF with RUBY on CKD. 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
[2016-07-16] MEDS ORDERED: oxyCODONE HCL 5 MG TABLET PO PRN (12:27)
[2016-07-16] MEDS: FUROSEMIDE 40 MG TABLET (FP) PO SCH (14:15)
[2016-07-16] MEDS: COLLAGENASE CLOSTRIDIUM HIST. 30 GRAMS TUBE TP SCH (17:45)
[2016-07-16] MEDS: ATORVASTATIN CA 20 MG TABLET (FP) PO SCH (21:35)
[2016-07-17] MEDS: MAG HYDROX/AL HYDROX/SIMETH 30 ML UNIT-DOSE CUP PO SCH (01:26)
[2016-07-17] MEDS: FUROSEMIDE 40 MG TABLET (FP) PO SCH (06:16)
[2016-07-17 07:16] VITALS: TEMP 97
[2016-07-17 07:18] LABS: BASOPHIL 1.2 % (0-2.0); MCH 29.2 pg (25.7-33.7); MCHC 32.9 g/dl (32.0-35.9); MEAN CELL VOLUME 88.6 fl (80-96); MEAN PLT VOLUME 7.7 fl (7.5-11.1); NEUTROPHILS 55.8 % (42.8-82.8); PLATELET COUNT 225 K/MM3 (134-434); RDW 18.7 % (11.9-15.9)
[2016-07-17 07:58] LABS: ALBUMIN 2.8 g/dl (3.4-5.0); BILIRUBIN,TOTAL 0.7 mg/dL (0.2-1.0); CALCIUM 8.7 mg/dL (8.5-10.1); CREATININE 2.1 mg/dL (0.7-1.3); MAGNESIUM 2.1 mg/dL (1.8-2.4); PHOSPHOROUS 3.9 mg/dL (2.5-4.9); TOT PROT 6.3 g/dl (6.4-8.2); URIC ACID 7.7 mg/dL (2.6-7.2)
--- NOTE | 2016-07-17 09:15 | DS ---
Physical Examination Vital Signs: Vital Signs Temperature 97 F L 07/17/16 05:00 Pulse Rate 66 07/17/16 05:00 Respiratory Rate 20 07/17/16 05:00 Blood Pressure 120/63 07/17/16 05:00 O2 Sat by Pulse Oximetry (%) 94 L 07/16/16 21:00 Findings/Remarks: COMFORTABLE NO CP Cardiovascular: Yes: Murmur, S1, S2 Respiratory: Yes: Regular, CTA Bilaterally Gastrointestinal: Yes: Normal Bowel Sounds, Soft Wound/Incision: Yes: Dressing Dry and Intact Labs: CBC, BMP 07/17/16 06:10 07/17/16 06:10 Discharge Summary Reason For Visit: CHF Current Active Problems CHF exacerbation (Acute) Cellulitis and abscess of foot (Acute) Elevated troponin I measurement (Acute) Glaucoma (Acute) 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 complication (Acute) Osteomyelitis (Chronic) Hospital Course: 61 year old male with HTN, HLD, CAD s/p CABG, ICM with chronic systolic CHF and multiple prior exacerbations, PAD with amputations, CKD, and anemia, most recently discharged from the hospital on 06/29 after being treated for chest pain and CHF as well as debridement of foot wounds. He presents again today stating that he is feeling short of breath (worse on exertion) with intermittent chest pain that does not seem related to exertion. 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: Yes: Peripheral Neuropathy Cardiovascular: Yes: CAD (CABG 2009., stents x5), CHF, HTN Pulmonary: Yes: COPD Gastrointestinal: Yes: Constipation Endocrine: Yes: Diabetes Mellitus - Past Surgical History Past Surgical History: Yes: Amputation (left TMT, right 1st and 2nd toes), CABG (2009 at [facility]) Problems (1) CHF exacerbation Assessment/Plan: IV LASIX--TO PO MONITOR LYTES AND CXR Code(s): I50.9 - HEART FAILURE, UNSPECIFIED Qualifiers: Congestive heart failure type: unspecified congestive heart failure type Qualified Code(s): I50.9 - Heart failure, unspecified (2) Elevated troponin I measurement Assessment/Plan: CARDIO ON BOARD MONITOR Code(s): R79.89 - OTHER SPECIFIED ABNORMAL FINDINGS OF BLOOD CHEMISTRY (3) 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 complication Assessment/Plan: BGM Code(s): E11.29 - TYPE 2 DIABETES MELLITUS W OTH DIABETIC KIDNEY COMPLICATION (4) Acute on chronic systolic (congestive) heart failure Assessment/Plan: ABOVE Code(s): I50.23 - ACUTE ON CHRONIC SYSTOLIC (CONGESTIVE) HEART FAILURE (5) Chest pain Code(s): R07.9 - CHEST PAIN, UNSPECIFIED (6) Wound of lower extremity Assessment/Plan: PODIATRY CONSULT NOTED Code(s): S81.809A - UNSPECIFIED OPEN WOUND, UNSPECIFIED LOWER LEG, INIT ENCNTR Qualifiers: Encounter type: sequela Laterality: left Qualified Code(s): S81.802S - Unspecified open wound, left lower leg, sequela Condition: Improved - Instructions Referrals: Paul Rios MD [Primary Care Provider] - 1 Week Disposition: HOME - Home Medications Comprehensive Discharge Medication List: Ambulatory Orders Acetaminophen 325 mg PO Q6H PRN 06/22/16 Ascorbate Calcium [Vitamin C] 500 mg PO DAILY 06/22/16 Calcitriol [Calcitriol -] 0.25 mcg PO DAILY 06/22/16 Citalopram Hydrobromide [Citalopram HBr] 20 mg PO DAILY 06/22/16 Clopidogrel Bisulfate [Clopidogrel] 75 mg PO DAILY 06/22/16 Divalproex [Depakote -] 250 mg PO BID 06/22/16 Insulin Glargine,Hum.rec.anlog [Lantus (10mL VIAL) -] 6 units SQ HS 06/22/16 Insulin Lispro [Humalog] 2 unit SQ TID 06/22/16 Levetiracetam [Keppra Xr -] 500 mg PO DAILY 06/22/16 Sevelamer HCl [Renagel] 800 mg PO TID 06/22/16 Atorvastatin Ca [Lipitor] 20 mg PO HS #30 tablet 06/29/16 Carvedilol [Coreg -] 12.5 mg PO BID tablet 07/17/16 Collagenase Clostridium Hist. [Santyl -] 1 applic TP DAILY tube 07/17/16 Furosemide [Lasix -] 80 mg PO BID@0600,1400 tablet 07/17/16
--- NOTE | 2016-07-17 09:18 | PN ---
Progress Note, Physician Chief Complaint: Comfortable No distress - Current Medication List Current Medications: Active Medications Acetaminophen (Tylenol -) 650 mg PO Q4H PRN PRN Reason: FEVER OR PAIN Al Hydroxide/Mg Hydroxide (Mylanta Oral Suspension -) 30 ml PO Q6HPO [facility] Last Admin: 07/17/16 01:26 Dose: Not Given Atorvastatin Calcium (Lipitor -) 20 mg PO HS [facility] Last Admin: 07/16/16 21:35 Dose: Not Given Calcitriol (Rocaltrol -) 0.25 mcg PO DAILY [facility] Last Admin: 07/16/16 09:35 Dose: Not Given Carvedilol (Coreg -) 12.5 mg PO BID [facility] Last Admin: 07/16/16 22:05 Dose: Not Given Citalopram Hydrobromide (Celexa -) 20 mg PO DAILY [facility] Last Admin: 07/16/16 09:35 Dose: Not Given Clopidogrel Bisulfate (Plavix -) 75 mg PO DAILY [facility] Last Admin: 07/16/16 09:35 Dose: Not Given Collagenase (Santyl -) 1 applic TP DAILY [facility] Last Admin: 07/16/16 17:45 Dose: Not Given Divalproex Sodium (Depakote -) 250 mg PO BID [facility] Last Admin: 07/16/16 21:34 Dose: Not Given Furosemide (Lasix -) 80 mg PO BID@0600,1400 [facility] Last Admin: 07/17/16 06:16 Dose: 80 mg Heparin Sodium (Porcine) (Heparin -) 5,000 unit SQ BID [facility] Last Admin: 07/16/16 21:34 Dose: Not Given Insulin Aspart (Novolog Vial Sliding Scale -) 1 vial SQ ACHS [facility] PRN Reason: Protocol Last Admin: 07/16/16 22:04 Dose: Not Given Levetiracetam (Keppra Xr -) 500 mg PO DAILY [facility] Last Admin: 07/16/16 09:35 Dose: Not Given Oxycodone HCl (Roxicodone -) 5 mg PO QID PRN Last Admin: 07/16/16 12:33 Dose: 5 mg Sevelamer Carbonate (Renvela -) 800 mg PO TIDCM [facility] Last Admin: 07/16/16 17:45 Dose: Not Given Simethicone (Mylicon -) 80 mg PO QID [facility] Last Admin: 07/16/16 21:35 Dose: Not Given Tramadol HCl (Ultram -) 50 mg PO Q8H PRN Last Admin: 07/15/16 21:31 Dose: 50 mg - Objective Vital Signs: Vital Signs Temperature 97 F L 07/17/16 05:00 Pulse Rate 66 07/17/16 05:00 Respiratory Rate 20 07/17/16 05:00 Blood Pressure 120/63 07/17/16 05:00 O2 Sat by Pulse Oximetry (%) 94 L 07/16/16 21:00 Constitutional: Yes: No Distress Cardiovascular: Yes: Regular Rate and Rhythm Respiratory: Yes: Other (bibasilar rales, improved) Gastrointestinal: Yes: Soft Edema: No Neurological: Yes: Alert Labs: CBC, BMP 07/17/16 06:10 07/17/16 06:10 Laboratory Tests 07/17/16 07/17/16 06:10 06:10 WBC 4.0 Hgb 9.2 L Hct 27.9 L Plt Count 225 Potassium 3.5 BUN 26 H D Creatinine 2.1 H Magnesium 2.1 Total Bilirubin 0.7 AST 10 L ALT 11 L D - ....Imaging EKG: Image Reviewed (TELE: Reviewed. NSR. VP,) Assessment/Plan Assessment/Plan IMP: Acute on chronic systolic CHF, secondary to underlying ischemic cardiomyopathy s /p CABG CKD Anemia REC: Agree w/ transition to Lasix 80mg PO BID. Close f/u renal fxn as outpatient. Will be difficult to achieve complete resolution of rales. We will likely have to accept some chronic degree of volume overload due to combo of CKD w/ reduced GFR and LV dysfx. Can try adding Imdur if BP tolerates. Would be of benefit for preload reduction and for his chronic angina and may allow us to decrease diuretic dose in future.
[2016-07-17] MEDS ORDERED: PT OWN MED DRAWER 7, Y5N ONE (09:21)
[2016-07-17] MEDS: CALCITRIOL 0.25 MCG CAPSULE (FP) PO SCH (09:40)
[2016-07-17] MEDS: CLOPIDOGREL BISULFATE 75 MG TABLET (FP) PO SCH (09:40)
[2016-07-17] MEDS: SEVELAMER CARBONATE 800 MG TAB (FP) PO SCH (09:40)
[2016-07-17] MEDS: levETIRAcetam XR 500 MG TAB PO SCH (09:40)
[2016-07-17] MEDS: CITALOPRAM HYDROBROMIDE 20 MG TABLET (FP) PO SCH (09:40)
[2016-07-17] MEDS: HEPARIN NA (PORCINE) 5,000 UNITS/ML 1ML VIAL SQ SCH (09:40)
[2016-07-17] MEDS: SIMETHICONE 80 MG TAB.CHEW (FP) PO SCH (09:40)
[2016-07-17] MEDS: DIVALPROEX SODIUM 250 MG TABLET E.C. (FP) PO SCH (09:40)
[2016-07-17] MEDS: CARVEDILOL 12.5 MG TABLET (FP) PO SCH (09:40)
[2016-07-17] MEDS: COLLAGENASE CLOSTRIDIUM HIST. 30 GRAMS TUBE TP SCH (09:41)
[2016-07-17] MEDS ORDERED: ISOSORBIDE MONONITRATE 30 MG TAB.SR.24H (FP) PO SCH (10:00)
[2016-07-17 10:20] VITALS: BP 126/69; PULSE 74
--- NOTE | 2016-07-17 10:20 | PN ---
Progress Note (short form) - Note Progress Note: Pt seen and examined. He is a 61 year old male diabetic s/p left forefoot amputation who ambulates with a boot and a cane. He c/o left knee pain with ambulation. He denies any recent h/o trauma. His pain is moderate, more "annoying" than severe pain. He believes that his left knee pain is due to his boot. PE Left foot s/p forefoot amputation. Left knee looks good: no swelling, ecchymosis, or deformity Non tender to palpation globally. No instability, normal strength, normal ROM. No xrays done Imp Left knee pain, likely due to his boot Rec F/u as an out pt as needed. I recommended going to [place] at [facility] in [place] for boot evaluation and possible adjustment
== END 2016-07-17 11:28 | disposition home or self-care (01) | DRG 291 ==
LOC: JER 10:15 → JERBED 16:52 → OBSVTOIN 19:52 → JICU 07-11 15:11 → J4S 07-12 16:43
PROVIDERS: ADMIT Family Medicine; ATTEND Family Medicine
DX: I13.0 Hypertensive heart and chronic kidney disease with heart failure and stage 1 through stage 4 chronic kidney disease, or unspecified chronic kidney disease (principal); I50.23 Acute on chronic systolic (congestive) heart failure; L97.429 Non-pressure chronic ulcer of left heel and midfoot with unspecified severity; M86.672 Other chronic osteomyelitis, left ankle and foot; I25.10 Atherosclerotic heart disease of native coronary artery without angina pectoris; Z95.1 Presence of aortocoronary bypass graft; Z95.5 Presence of coronary angioplasty implant and graft; E11.51 Type 2 diabetes mellitus with diabetic peripheral angiopathy without gangrene; Z79.4 Long term (current) use of insulin; E11.621 Type 2 diabetes mellitus with foot ulcer; E11.22 Type 2 diabetes mellitus with diabetic chronic kidney disease; E11.65 Type 2 diabetes mellitus with hyperglycemia; Z89.422 Acquired absence of other left toe(s); E11.69 Type 2 diabetes mellitus with other specified complication; I25.5 Ischemic cardiomyopathy; J44.9 Chronic obstructive pulmonary disease, unspecified; E78.5 Hyperlipidemia, unspecified; Z91.14 Patient's other noncompliance with medication regimen; G62.9 Polyneuropathy, unspecified; N18.3 Chronic kidney disease, stage 3 (moderate); N25.0 Renal osteodystrophy; R79.89 Other specified abnormal findings of blood chemistry
CPT/HCPCS: 36415; 71010-TC; 80048; 80053; 82550; 83036; 83735; 83970; 84100; 84484; 84550; 85025; 93005; 93010; 99285-25; G0378; J1644

== ENCOUNTER 2016-09-13 09:24 | Inpatient (IN) | payer OTHER ==
[2016-09-13 09:37] VITALS: BMI 24.0
--- NOTE | 2016-09-13 10:44 | PDOC ---
History of Present Illness - General History Source: Patient Exam Limitations: No Limitations - History of Present Illness Initial Comments: 09/13/16 11:01 The patient is a 61-year-old male, with a significant past medical history of HTN, HLD, CAD s/p CABG, ICM with chronic systolic CHF and multiple prior exacerbations, PAD with amputations, CKD, and anemia, who presents to the ED with fluid and blood drainage from left foot wound. Pts was last discharged from the hospital on 07/17 and since then has not been able to visit his PCP regarding his left foot ulcer or to [employer] his medications. Pt also states that he has not been able to eat due to vomiting and diarrhea. The patient denies any fever, chills, or abdominal pain. The patient denies any shortness of breath or chest pain. <Shahnaz Khan - Last Filed: 09/13/16 14:06> <Maria Del Carmen Pitt - Last Filed: 09/13/16 19:52> - General Chief Complaint: Injury Stated Complaint: FALL/ LT FOOT LACERATION Time Seen by Provider: 09/13/16 10:02 Past History <Shahnaz Khan - Last Filed: 09/13/16 14:06> - Past Medical History Anemia: No Asthma: No Cancer: No Cardiac Disorders: Yes (STENTS X5) CVA: No COPD: No CHF: Yes Dementia: No Diabetes: Yes GI Disorders: No Disorders: No HTN: Yes Hypercholesterolemia: Yes Liver Disease: No Suicide Attempt (Hx): No Seizures: No Thyroid Disease: No - Surgical History Abdominal Surgery: No Appendectomy: No Cardiac Surgery: Yes (stents) Cholecystectomy: No Lung Surgery: No Neurologic Surgery: No Orthopedic Surgery: Yes (R. hand, r. foot toes amputated, l. foot 4th & 5th toes amputated) - Immunization History Td Vaccination: Yes TDAP Vaccination: Yes Immunization Up to Date: No - Psycho/Social/Smoking Cessation Hx Anxiety: No Suicidal Ideation: No Smoking Status: No Smoking History: Never smoked Have you smoked in the past 12 months: No Number of Cigarettes Smoked Daily: 0 Information on smoking cessation initiated: No Hx Alcohol Use: No Drug/Substance Use Hx: No Substance Use Type: None Hx Substance Use Treatment: No <Maria Del Carmen Pitt - Last Filed: 09/13/16 19:52> - Past Medical History Allergies/Adverse Reactions: Allergies Allergy/AdvReac Type Severity Reaction Status Date / Time banana Allergy Verified 09/13/16 09:29 No Known Drug Allergies Allergy Verified 09/13/16 09:29 Home Medications: Ambulatory Orders Acetaminophen 325 mg PO Q6H PRN 06/22/16 Ascorbate Calcium [Vitamin C] 500 mg PO DAILY 06/22/16 Calcitriol [Calcitriol -] 0.25 mcg PO DAILY 06/22/16 Citalopram Hydrobromide [Citalopram HBr] 20 mg PO DAILY 06/22/16 Clopidogrel Bisulfate [Clopidogrel] 75 mg PO DAILY 06/22/16 Divalproex [Depakote -] 250 mg PO BID 06/22/16 Insulin Glargine,Hum.rec.anlog [Lantus (10mL VIAL) -] 6 units SQ HS 06/22/16 Insulin Lispro [Humalog] 2 unit SQ TID 06/22/16 Levetiracetam [Keppra Xr -] 500 mg PO DAILY 06/22/16 Sevelamer HCl [Renagel] 800 mg PO TID 06/22/16 Atorvastatin Ca [Lipitor] 20 mg PO HS #30 tablet 06/29/16 Carvedilol [Coreg -] 12.5 mg PO BID tablet 07/17/16 Collagenase Clostridium Hist. [Santyl -] 1 applic TP DAILY tube 07/17/16 Furosemide [Lasix -] 80 mg PO BID@0600,1400 tablet 07/17/16 Isosorbide Mononitrate [Imdur -] 15 mg PO DAILY #30 tab.sr.24h 07/17/16 Review of Systems - Review of Systems Able to Perform ROS?: Yes Comments:: 09/13/16 11:01 GENERAL/CONSTITUTIONAL: No fever or chills. No weakness. HEAD, EYES, EARS, NOSE AND THROAT: No change in vision. No ear pain or discharge. No sore throat. CARDIOVASCULAR: No chest pain or shortness of breath. RESPIRATORY: No cough, wheezing, or hemoptysis. GASTROINTESTINAL: No constipation. (+) nausea, vomiting, diarrhea GENITOURINARY: No dysuria, frequency, or change in urination. MUSCULOSKELETAL: No joint or muscle swelling or pain. No neck or back pain. SKIN: (+)Wound on left foot with drainage NEUROLOGIC: No headache, vertigo, loss of consciousness, or change in strength/ sensation. ENDOCRINE: No increased thirst. No abnormal weight change. HEMATOLOGIC/LYMPHATIC: No anemia, easy bleeding, or history of blood clots. ALLERGIC/IMMUNOLOGIC: No hives or skin allergy. <Shahnaz Khan - Last Filed: 09/13/16 14:06> *Physical Exam - Vital Signs Last Vital Signs Temp Pulse Resp BP Pulse Ox 98.2 F 104 H 20 100/58 95 09/13/16 09:30 09/13/16 09:30 09/13/16 09:30 09/13/16 09:30 09/13/16 09:30 <Shahnaz Khan - Last Filed: 09/13/16 14:06> - Vital Signs Last Vital Signs Temp Pulse Resp BP Pulse Ox 98.2 F 104 H 20 100/58 95 09/13/16 09:30 09/13/16 09:30 09/13/16 09:30 09/13/16 09:30 09/13/16 09:30 - Physical Exam Comments: GENERAL: Awake, alert, and fully oriented, in no acute distress HEAD: No signs of trauma EYES: PERRLA, EOMI, sclera anicteric, conjunctiva clear ENT: Auricles normal inspection, hearing grossly normal, nares patent, oropharynx clear without exudates. Moist mucosa NECK: Normal ROM, supple, no lymphadenopathy, JVD, or masses LUNGS: Breath sounds equal, clear to auscultation bilaterally. No wheezes, and no crackles HEART: Regular rate and rhythm, normal S1 and S2, no murmurs, rubs or gallops ABDOMEN: Soft, nontender, normoactive bowel sounds. No guarding, no rebound. No masses EXTREMITIES: L foor with multiple well-healed scars. +Large 8cm x 4cm wound to the lateral and plantar foot, with protrusion of bone. Malodorous. +Tenderness and erythema to L foot and ankle. NEUROLOGICAL: Cranial nerves II through XII grossly intact. Normal speech. Moving all extremities. SKIN: Warm, Dry, normal turgor, no rashes or lesions noted. <Maria Del Carmen Pitt - Last Filed: 09/13/16 19:52> ED Treatment Course - LABORATORY CBC & Chemistry Diagram: 09/13/16 11:40 09/13/16 11:40 <Shahnaz Khan - Last Filed: 09/13/16 14:06> - LABORATORY CBC & Chemistry Diagram: 09/13/16 11:40 09/13/16 11:40 <Maria Del Carmen Pitt - Last Filed: 09/13/16 19:52> Medical Decision Making - Medical Decision Making 09/13/16 13:14 Dr. Layo Aguillon was paged and notified via phone service. Second page was place at 13:55. <Shahnaz Khan - Last Filed: 09/13/16 14:06> - Medical Decision Making 09/13/16 12:51 Case d/w Dr. Rios, will admit for severe DFU with protruding bone. I will request consult from Dr. Anne, who has followed patient in the past. I have given broad spectrum abx coverage. 09/13/16 14:03 Case d/w Dr. Aguillon, will evaluate for subcutaneous gas found on XR. <Maria Del Carmen Pitt - Last Filed: 09/13/16 19:52> *DC/Admit/Observation/Transfer - Attestations Scribe Attestion: 09/13/16 11:03 Documentation prepared by Shahnaz Khan, acting as biomedical engineering aide for Maria Del Carmen Pitt MD. <Shahnaz Khan - Last Filed: 09/13/16 14:06> - Discharge Dispostion Admit: Yes <Maria Del Carmen Pitt - Last Filed: 09/13/16 19:52> Diagnosis at time of Disposition: Wound infection, Cellulitis and abscess of foot Diabetic neuropathy Qualifiers: Diabetes mellitus type: other specified (including KEREN) Diabetes mellitus complication detail: diabetic polyneuropathy Qualified Code(s): E13.42 - Other specified diabetes mellitus with diabetic polyneuropathy Diabetic foot ulcer Qualifiers: Diabetic foot ulcer location: midfoot Diabetes mellitus type: other specified ( including KEREN) Laterality: left Non-pressure ulcer stage: unspecified non- pressure ulcer stage Qualified Code(s): E13.621 - Other specified diabetes mellitus with foot ulcer - Discharge Dispostion Condition at time of disposition: Stable
[2016-09-13] MEDS ORDERED: morphine CARPU-JECT 4 MG/1 ML DISP.SYRIN IVPUSH ONE (10:53)
[2016-09-13] MEDS ORDERED: PIPERACILLIN/TAZOB 3.375 GM 3.375 GM in DEXTROSE 5%-WATER - 50 ML IVPB ONE (10:54)
[2016-09-13] MEDS ORDERED: VANCOMYCIN 1,000 MG in DEXTROSE 5%-WATER - 250 ML IVPB ONE (10:54)
[2016-09-13] MEDS ORDERED: morphine CARPU-JECT 4 MG/1 ML DISP.SYRIN ONE (11:04)
[2016-09-13] MEDS ORDERED: PIPERACILLIN/TAZOB 3.375 GM 50 ML IVPB ONE (11:05)
[2016-09-13] MEDS ORDERED: VANCOMYCIN 1 GRAM (PRE-DOCKED) 250 ML IVPB ONE (11:05)
[2016-09-13 11:55] LABS: BASOPHIL 0.6 % (0-2.0); EOSINOPHIL 0.1 % (0-4.5); MCH 28.7 pg (25.7-33.7); MCHC 33.1 g/dl (32.0-35.9); MEAN CELL VOLUME 86.7 fl (80-96); MEAN PLT VOLUME 7.3 fl (7.5-11.1); NEUTROPHILS 84.4 % (42.8-82.8); PLATELET COUNT 308 K/MM3 (134-434); RDW 16.5 % (11.9-15.9)
[2016-09-13 12:08] LABS: INR 1.42 (0.82-1.09); PROTHROMBIN TIME (PATIENT) 15.7 SEC (9.98-11.88)
[2016-09-13 12:18] LABS: ALBUMIN 2.2 g/dl (3.4-5.0); CALCIUM 8.2 mg/dL (8.5-10.1); COCKROFT - GAULT 44.3; CREATININE 2.1 mg/dL (0.7-1.3); TOT PROT 6.5 g/dl (6.4-8.2)
[2016-09-13] MEDS ORDERED: INSULIN REGULAR HUMAN 100 UNITS/ML *VIAL SQ ONE (12:30)
[2016-09-13] MEDS ORDERED: INSULIN REGULAR HUMAN 100 UNITS/ML *VIAL ONE (12:34)
[2016-09-13] MEDS ORDERED: SODIUM CHLORIDE 1,000 ML IV SCH (13:45)
--- NOTE | 2016-09-13 14:01 | PN ---
Progress Note (short form) - Note Progress Note: Consult Dictated LLE cellulitis, chronic infected wound- concern for gas producing organism CAD s/p CABG Severe LV dysfunction w/ chronic systolic CHF Chronic anemia History GI bleed/guaiac + stool CKD Hyponatremia REC: ID and surgical evaluation Consider renal eval for hyponatremia Duplex LE to r/o DVT Continue home cardiac meds: would dose Lasix 40mg IV daily for now.
--- NOTE | 2016-09-13 14:17 | CONSULT ---
Consult - text type - Consultation Consultation Note: Renal Consult for CKD and Hyponatremia This is a 61 year old Gentleman with PMhx of RUBY (ATN with peak Cr of 4.7), CKD , CAD, CHF, PVD, IDDM with LE wound and found to have Cr of 2.1 and Na of 126. Pt states that he has not had any follow up since his last discharge. He was not taking any medications and has been not eating. + diarrhea. + Fever. No NSAID use. Unable to qualtify urine output. No rash, flank pain. no ROSAS, Chest pain, Abd pain, N/V/D. PMhx: as above Allergies: NKDA Family Hx: NC Social Hx: No T/A/D ROS: as per HPI Home Meds: Home Medications Medication Instructions Recorded Acetaminophen 325 mg PO Q6H PRN 06/22/16 Ascorbate Calcium [Vitamin C] 500 mg PO DAILY 06/22/16 Calcitriol [Calcitriol -] 0.25 mcg PO DAILY 06/22/16 Citalopram Hydrobromide 20 mg PO DAILY 06/22/16 [Citalopram HBr] Clopidogrel Bisulfate [Clopidogrel] 75 mg PO DAILY 06/22/16 Divalproex [Depakote -] 250 mg PO BID 06/22/16 Insulin Glargine,Hum.rec.anlog 6 units SQ HS 06/22/16 [Lantus (10mL VIAL) -] Insulin Lispro [Humalog] 2 unit SQ TID 06/22/16 Levetiracetam [Keppra Xr -] 500 mg PO DAILY 06/22/16 Sevelamer HCl [Renagel] 800 mg PO TID 06/22/16 Atorvastatin Ca [Lipitor] 20 mg PO HS #30 tablet 06/29/16 Carvedilol [Coreg -] 12.5 mg PO BID tablet 07/17/16 Collagenase Clostridium Hist. 1 applic TP DAILY tube 07/17/16 [Santyl -] Furosemide [Lasix -] 80 mg PO BID@0600,1400 tablet 07/17/16 Isosorbide Mononitrate [Imdur -] 15 mg PO DAILY #30 tab.sr.24h 07/17/16 Vital Signs Temperature 98.2 F 09/13/16 09:30 Pulse Rate 104 H 09/13/16 09:30 Respiratory Rate 20 09/13/16 09:30 Blood Pressure 100/58 09/13/16 09:30 O2 Sat by Pulse Oximetry (%) 95 09/13/16 09:30 Intake & Output 09/10/16 09/11/16 09/12/16 09/13/16 23:59 23:59 23:59 23:59 Weight 192 lb Gen: NAD, awake and alert HEENT: NC/AT, Dry MM, No JVD CVS: RRR, No M/R Lungs: Dec BS in lung bases, no rales Abd: soft NT/ND Ext: 1+ edema in the LE, no sacral edema. B/L TMA. Left foot in dressing with blood and discharge stained on dressing. Neuro: AAOx3, no focal defects CBC, BMP 09/13/16 11:40 09/13/16 11:40 Laboratory Tests 09/13/16 09/13/16 11:40 11:40 MCV 86.7 Neutrophils % 84.4 H D Lymphocytes % 6.5 L D Monocytes % 8.4 Random Glucose 386 H* D Total Bilirubin 1.0 D AST 13 L D ALT 16 D Alkaline Phosphatase 171 H D Total Protein 6.5 Albumin 2.2 L D Current Medications Acetaminophen (Tylenol -) 650 mg PO Q4H PRN PRN Reason: FEVER OR PAIN Albuterol Sulfate (Ventolin 0.083% Nebulizer Soln -) amp NEB Q6HPO [facility] Atorvastatin Calcium (Lipitor -) 20 mg PO HS [facility] Calcitriol (Rocaltrol -) 0.25 mcg PO DAILY [facility] Carvedilol (Coreg -) 12.5 mg PO BID [facility] Citalopram Hydrobromide (Celexa -) 20 mg PO DAILY [facility] Clopidogrel Bisulfate (Plavix -) 75 mg PO DAILY [facility] Divalproex Sodium (Depakote -) 250 mg PO BID [facility] Heparin Sodium (Porcine) (Heparin -) 5,000 unit SQ BID [facility] Sodium Chloride (Normal Saline -) 1,000 mls @ 50 mls/hr IV ASDIR [facility] Stop: 09/14/16 13:42 Last Admin: 09/13/16 13:51 Dose: 50 mls/hr Insulin Detemir (Levemir Vial) 10 units SQ BID [facility] Isosorbide Mononitrate (Imdur -) 15 mg PO DAILY [facility] Levetiracetam (Keppra Xr -) 500 mg PO DAILY [facility] Non-Formulary Medication (Ascorbate Calcium [Vitamin C]) 500 mg PO DAILY [facility] Non-Formulary Medication (Sevelamer Hcl [Renagel]) 800 mg PO TID MAAME A/P 61 year old Gentleman with PMhx of RUBY (ATN with peak Cr of 4.7), CKD, CAD, CHF , PVD, IDDM with LE wound and found to have Cr of 2.1 and Na of 126. #Hyponatremia (corrected Ca is 130) Pt with LE edema however pt with signs of intravascular depletion continue isotonic saline for now correct hyperglycemia Trend Na Q12h #Hyperkalemia isotonic saline for now Trend K Q12h #CKD Stage 3 Trend BUN/Cr no CRISTHIAN/ARB at this time #LE cellulitis/Wound infection continue Emperic Abx Check Vanco levels and redose Vascular follow up #Hx of CHF CXR clear no acute decompensation monitor while on IVF #PVD Vascular Follow up #IDDM continue insulin Daniel Cid DO
[2016-09-13] MEDS ORDERED: FUROSEMIDE 40 MG/4 ML INJECTABLE VIAL IVPUSH SCH (14:30)
[2016-09-13] MEDS ORDERED: FUROSEMIDE 40 MG/4 ML INJECTABLE VIAL ONE (15:21)
--- NOTE | 2016-09-13 15:37 | CONS ---
CARDIOLOGY CONSULTATION DATE OF CONSULTATION: 09/13/2016 REQUESTING PHYSICIAN: Paul Rios MD REASON FOR CONSULTATION: Cardiac evaluation prior to possible lower extremity debridement. CHIEF COMPLAINT: Lower extremity infection, oozing, generalized fatigue. HISTORY OF PRESENT ILLNESS: The patient is a 61-year-old male well known to our service with complicated past medical history including coronary artery disease status post CABG many years ago, severe LV dysfunction, several non-ST segment elevation MIs over the last 2 years in the setting of sepsis and anemia, chronic renal insufficiency, history of GI bleed/guaiac-positive stool, and chronic lower extremity wound infections with lower extremity osteomyelitis status post digit amputations, who now presents to the emergency room after 2 weeks of being relatively sedentary at home, relegated to bed with a nonhealing left lower extremity wound that continued to ooze what he describes as both pus and blood. He was unable to leave his home and take most of his usual medications although he has been on an oral antibiotic over the last couple of weeks at home. He feels weak and tired and has been unable to eat and has been losing weight. He states that after he eats any food he vomits and has significant amounts of diarrhea. He denies chest pain, but has chronic dyspnea on exertion. He denies palpitations. He denies syncope. He has had increased lower extremity edema bilaterally. An x-ray of the foot shows emphysema in the subcutaneous tissues of the left lower extremity. PAST MEDICAL HISTORY: As above and also includes hypertension, chronic systolic CHF, chronic renal insufficiency, guaiac-positive stools, history of lower extremity osteomyelitis, glaucoma, type 2 diabetes, diabetic neuropathy, and hyperlipidemia. ALLERGIES: HE IS ALLERGIC TO BANANAS, but has no known drug allergies. CURRENT MEDICATIONS: Includes Tylenol 650 mg p.o. q.4 hours p.r.n., albuterol nebulizer q.6 hours, Lipitor 20 mg at bedtime, Rocaltrol, Coreg 12.5 mg b.i.d., Celexa 20 mg daily, Plavix 75 mg daily, Depakote 250 mg b.i.d., subcutaneous heparin 5000 units subcutaneously b.i.d., Levemir 10 units subcutaneous b.i.d., Imdur 15 mg p.o. daily, Keppra 500 mg p.o. daily, and sevelamer 800 mg p.o. t.i.d. FAMILY HISTORY: Noncontributory. SOCIAL HISTORY: Denies smoking. Lives alone. PHYSICAL EXAMINATION: Vital Signs: Temperature of 98.2, pulse of 104, and blood pressure of 100/60. Weight: 192 pounds. HEENT: Anicteric. Neck: No bruits. Heart: Median sternotomy. S1, S2, regular. Soft systolic murmur right sternal border. Chest: Clear anteriorly with slight decreased breath sounds at the bases. Abdomen: Soft. Extremities: He has 2+ pitting edema bilaterally with some overlying erythema of the left lower extremity. There is no EKG yet, currently being done. White count of 11, hematocrit of 27.1, and platelets of 308. INR of 1.4. Sodium of 123, potassium of 5.4, BUN of 23, creatinine of 2.1, glucose of 386, AST of 13, ALT of 16, alkaline phosphatase of 171, and albumin of 2.2. Chest x-ray: Borderline cardiomegaly with congestive changes and cephalization indicative of CHF. Foot x-ray: Soft tissue emphysematous changes, progressive neuropathic osteoarthropathy. IMPRESSION: 1. Left lower extremity cellulitis, chronic infected wound, concern for gas-producing organism. 2. Coronary artery disease status post coronary artery bypass grafting. 3. Severe left ventricular systolic dysfunction with chronic systolic congestive heart failure. 4. Chronic anemia. 5. History of gastrointestinal bleed/guaiac-positive stool. 6. Chronic renal insufficiency. 7. Hyponatremia. RECOMMENDATIONS: 1. Infectious Disease and Surgery evaluation for left lower extremity wound. 2. Consider renal evaluation for assistance with treatment of hyponatremia. 3. Lower extremity Duplex ultrasound to rule out DVT. 4. Would continue home cardiac medications, and after discussing with renal, have decided to hold diuretics while giving saline to correct hyponatremia. 5. Would also test stool for C. difficile as he is having diarrhea and has been hospitalized numerous times and been on chronic antibiotics. Thank you for the consultation. LANA JAMIL M.D. [id number] MTDD
[2016-09-13] MEDS ORDERED: PIPERACILLIN/TAZOB 2.25 GM/50 ML PRE-DOCKED BAG IVPB ONE (17:00)
--- NOTE | 2016-09-13 17:01 | PN ---
Progress Note (short form) - Note Progress Note: ID consult dictated imp/reccd noncompliant 61 year old man with DM and CAD history of multiple foot infections in the past +MRSA in the distant past has not sought medical f/u since discharge from the hospital 2 months ago felt foot has been opening up and intermittently bleeding for the last two months increasing pain and swelling over last week chills nausea and vomiting at home diabetic foot infection hyperglycemia RUBY hyponatremia vancomycin/zosyn surgical evaluation-debridement- ?amputation follow vancomycin level and redose f/u cultures Problem List - Problems (1) Diabetic foot infection Code(s): E11.69 - TYPE 2 DIABETES MELLITUS WITH OTHER SPECIFIED COMPLICATION L08.9 - LOCAL INFECTION OF THE SKIN AND SUBCUTANEOUS TISSUE, UNSP (2) Hyperglycemia Code(s): R73.9 - HYPERGLYCEMIA, UNSPECIFIED (3) Hyponatremia Code(s): E87.1 - HYPO-OSMOLALITY AND HYPONATREMIA (4) RUBY (acute kidney injury) Code(s): N17.9 - ACUTE KIDNEY FAILURE, UNSPECIFIED
[2016-09-13 18:25] LABS: URINE APPEARANCE CLEAR; URINE BILIRUBIN NEGATIVE (NEGATIVE); URINE COLOR YELLOW; URINE GLUCOSE (UA) 3+ (NEGATIVE); URINE KETONE NEGATIVE (NEGATIVE); URINE LEUK ESTERASE NEGATIVE (NEGATIVE); URINE NITRITE NEGATIVE (NEGATIVE); URINE UROBILINOGEN NEGATIVE E.U./dl (0.2-1.0)
[2016-09-13] MEDS: ALBUTEROL SO4 0.083% IH SOL 2.5 MG/3 ML VIAL.NEB. NEB SCH ×2 (18:38→18:53)
[2016-09-13] MEDS ORDERED: ALBUTEROL SO4 0.083% IH SOL 2.5 MG/3 ML VIAL.NEB. NEB ONE (18:39)
[2016-09-13 18:59] LABS: URINE BLOOD 2+ (NEGATIVE); URINE PROTEIN 2+ (NEGATIVE)
--- NOTE | 2016-09-13 19:14 | PN ---
Progress Note (short form) - Note Progress Note: Vascular Surgery Pt seen and examined. Left foot with exposed bone, bleeding. Pt had abscess drained by podiatry a little over a month ago. Now comes in with necrotic foot. WBC 9. Afebrile. Will need debridement of foot. Will involve podiatry to evalaute pt -- Dr. Zhen Aguillon DO
[2016-09-13 19:16] LABS: URINE HYALINE CAST 3 /lpf; URINE MUCUS RARE; URINE RBC 20 /hpf (0-3); URINE WBC 3 /hpf (3-5)
[2016-09-13] MEDS: SEVELAMER CARBONATE 800 MG TAB (FP) PO SCH (20:47)
[2016-09-13] MEDS: CARVEDILOL 12.5 MG TABLET (FP) PO SCH (22:18)
[2016-09-13] MEDS: PIPERACILLIN/TAZOB 2.25 GM 50 ML IVPB SCH (22:19)
[2016-09-13] MEDS: ATORVASTATIN CA 20 MG TABLET (FP) PO SCH (22:19)
[2016-09-13] MEDS: HEPARIN NA (PORCINE) 5,000 UNITS/ML 1ML VIAL SQ SCH (22:19)
[2016-09-13] MEDS: INSULIN DETEMIR 100 UNITS/ML MDV SQ SCH (22:19)
[2016-09-13] MEDS: DIVALPROEX SODIUM 250 MG TABLET E.C. (FP) PO SCH (22:19)
[2016-09-14] MEDS: ALBUTEROL SO4 0.083% IH SOL 2.5 MG/3 ML VIAL.NEB. NEB SCH ×5 (00:10→23:29)
--- NOTE | 2016-09-14 01:41 | CONS ---
DATE OF CONSULTATION: DATE OF DICTATION: 09/13/2016 INFECTIOUS DISEASE CONSULTATION HISTORY OF PRESENT ILLNESS: This is a 61-year-old man with diabetes and coronary artery disease. He has a history of chronic diabetic foot infections. He has history of CHF, CKD, and anemia. He was last in the hospital and discharged on July 17. Since that time, he has not sought any medical care. He ran out of all his medications. He is not taking any medications at home. Said he had some antibiotics; he took them for awhile. He reports on his left foot that he has an intermittent ulcer that periodically opens up and starts draining. He states about a week ago it opened up again and has been draining blood and fluid. He reports increasing pain and swelling of that leg. He came to the emergency room. He denies fevers, but he has chills. He has been having vomiting and nausea at home. He has no chest pain or shortness of breath. PAST MEDICAL HISTORY: Notable for coronary artery disease, he has [address] CHF, CKD, diabetes, hypertension, hypercholesterolemia. SURGICAL HISTORY: Notable for a right foot toes amputated, and he has had left foot transmetatarsal amputation. He has a remote history of MRSA infection in the past, and he has had multiple episodes of osteomyelitis. FAMILY HISTORY: Noncontributory. SOCIAL HISTORY: He lives alone. ALLERGIES: No known drug allergies. MEDICATION: He does not take any medications. REVIEW OF SYSTEMS: As per HPI. PHYSICAL EXAMINATION: General: He is awake and alert. Vital signs: Temperature 98.2, pulse 104, blood pressure is 100/58, respiratory rate 20, he weighs 192 pounds. HEENT: Normocephalic. Eyes are anicteric. Neck: Supple. Lungs: Clear to auscultation. Heart: Regular rate and rhythm. Abdomen: Soft, nontender. Extremities: Notable for a left foot, sole of his foot he has a large ulcer, left leg is more swollen than the right. At the TMA site on the plantar surface, he has an ulcer. He has an ulcer at the heel as well. It is open and draining serous bloody fluid. LABORATORY: Notable for white count 11,000, hemoglobin 9, platelets 308. BUN and creatinine are 23 and 2.1 with sodium of 123 and a glucose of 386, alkaline phosphatase 171. He had a duplex of his leg that shows no DVT. He had an x-ray of his foot that shows some soft tissue, emphysematous changes along near the opening of the foot near the left distal fibula, and he has got destructive changes in the bone. IMPRESSION: In summary, this is a 61-year-old man with a diabetic foot infection, hyperglycemia, hyponatremia, acute kidney injury, history of methicillin resistant Staphylococcus aureus in the past. I would treat him with vancomycin and Zosyn at this time. Surgical evaluation for debridement, possible amputation. Would follow vancomycin levels and re-dose as needed, and follow up his cultures. Surgery to evaluate for debridement and possible amputation. SHANA GRIFFITH M.D. [id number]
[2016-09-14] MEDS: PIPERACILLIN/TAZOB 2.25 GM 50 ML IVPB SCH ×4 (03:35→20:43)
[2016-09-14 07:40] LABS: BASOPHIL 0.6 % (0-2.0); EOSINOPHIL 0.9 % (0-4.5); MCH 28.3 pg (25.7-33.7); MCHC 33.3 g/dl (32.0-35.9); MEAN CELL VOLUME 84.8 fl (80-96); MEAN PLT VOLUME 7.4 fl (7.5-11.1); NEUTROPHILS 80.3 % (42.8-82.8); PLATELET COUNT 212 K/MM3 (134-434); RDW 16.7 % (11.9-15.9); WHITE BLOOD COUNT 6.8 K/mm3 (4.0-10.0)
[2016-09-14 08:05] LABS: ALBUMIN 1.7 g/dl (3.4-5.0); CALCIUM 7.5 mg/dL (8.5-10.1); COCKROFT - GAULT 48.36; MAGNESIUM 1.5 mg/dL (1.8-2.4); PHOSPHOROUS 3.2 mg/dL (2.5-4.9)
[2016-09-14 08:12] LABS: INR 1.36 (0.82-1.09); PROTHROMBIN TIME (PATIENT) 15.1 SEC (9.98-11.88)
[2016-09-14 08:15] LABS: ACTIVATED PTT 34.5 SECONDS (26.9-34.4)
--- NOTE | 2016-09-14 08:15 | HP ---
Admitting History and Physical - Admission History of Present Illness: 61-year-old male, with a significant past medical history of HTN, HLD, CAD s/p CABG, ICM with chronic systolic CHF and multiple prior exacerbations, PAD with amputations, CKD, and anemia, who presents to the ED with fluid and blood drainage from left foot wound. Pts was last discharged from the hospital on and since then has not been able to visit his PCP regarding his left foot ulcer or to pickle maker his medications. Pt also states that he has not been able to eat due to vomiting and diarrhea. 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[employer]: Yes: Peripheral Neuropathy Cardiovascular: Yes: CAD (CABG 2009., stents x5), CHF, HTN Pulmonary: Yes: COPD Gastrointestinal: Yes: Constipation Psych: Yes: Anxiety, Depression Endocrine: Yes: Diabetes Mellitus - Past Surgical History Past Surgical History: Yes: Amputation (left TMT, right 1st and 2nd toes), CABG (2008 at [facility]) - Smoking History Smoking history: Never smoked Have you smoked in the past 12 months: No Aproximately how many cigarettes per day: 0 - Alcohol/Substance Use Hx Alcohol Use: No - Social History ADL: Independent 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 Home Medications - Allergies Allergies/Adverse Reactions: Allergies Allergy/AdvReac Type Severity Reaction Status Date / Time banana Allergy Verified 09/13/16 09:29 No Known Drug Allergies Allergy Verified 09/13/16 09:29 - Home Medications Home Medications: Ambulatory Orders Acetaminophen 325 mg PO Q6H PRN 06/22/16 Ascorbate Calcium [Vitamin C] 500 mg PO DAILY 06/22/16 Calcitriol [Calcitriol -] 0.25 mcg PO DAILY 06/22/16 Citalopram Hydrobromide [Citalopram HBr] 20 mg PO DAILY 06/22/16 Clopidogrel Bisulfate [Clopidogrel] 75 mg PO DAILY 06/22/16 Divalproex [Depakote -] 250 mg PO BID 06/22/16 Insulin Glargine,Hum.rec.anlog [Lantus (10mL VIAL) -] 6 units SQ HS 06/22/16 Insulin Lispro [Humalog] 2 unit SQ TID 06/22/16 Levetiracetam [Keppra Xr -] 500 mg PO DAILY 06/22/16 Sevelamer HCl [Renagel] 800 mg PO TID 06/22/16 Atorvastatin Ca [Lipitor] 20 mg PO HS #30 tablet 06/29/16 Carvedilol [Coreg -] 12.5 mg PO BID tablet 07/17/16 Collagenase Clostridium Hist. [Santyl -] 1 applic TP DAILY tube 07/17/16 Furosemide [Lasix -] 80 mg PO BID@0600,1400 tablet 07/17/16 Isosorbide Mononitrate [Imdur -] 15 mg PO DAILY #30 tab.sr.24h 07/17/16 Family Disease History - Family Disease History Family Disease History: Diabetes: Sister Review of Systems - Review of Systems Cardiovascular: reports: Shortness of Breath. denies: Chest Pain Respiratory: reports: SOB Gastrointestinal: reports: Diarrhea. denies: Abdominal Pain Genitourinary: reports: No Symptoms Integumentary: reports: Erythema, Wound Neurological: denies: Change in LOC Physical Examination Vital Signs: Vital Signs Temperature 98.6 F 09/14/16 06:00 Pulse Rate 89 09/14/16 06:34 Respiratory Rate 18 09/14/16 06:34 Blood Pressure 98/60 09/14/16 06:34 O2 Sat by Pulse Oximetry (%) 97 09/14/16 00:44 Cardiovascular: Yes: Murmur, S1, S2 Respiratory: Yes: Regular, CTA Bilaterally Gastrointestinal: Yes: Normal Bowel Sounds, Soft Edema: Yes Edema: LLE: 2+ Wound/Incision: Yes: Dressing Dry and Intact Neurological: Yes: Alert, Oriented Labs: CBC, BMP 09/14/16 06:00 09/14/16 06:00 Problem List - Problems (1) Diabetic foot infection Assessment/Plan: WOUND CARE VASCULAR AND PODIATRY ABX--ID Code(s): E11.69 - TYPE 2 DIABETES MELLITUS WITH OTHER SPECIFIED COMPLICATION L08.9 - LOCAL INFECTION OF THE SKIN AND SUBCUTANEOUS TISSUE, UNSP (2) RUBY (acute kidney injury) Assessment/Plan: MONITOR ON CURRENT MEDS Code(s): N17.9 - ACUTE KIDNEY FAILURE, UNSPECIFIED (3) CHF exacerbation Assessment/Plan: LASIX CARDIO Code(s): I50.9 - HEART FAILURE, UNSPECIFIED Qualifiers: Congestive heart failure type: unspecified congestive heart failure type Qualified Code(s): I50.9 - Heart failure, unspecified (4) 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 complication Assessment/Plan: BGM AND SS Code(s): E11.29 - TYPE 2 DIABETES MELLITUS W OTH DIABETIC KIDNEY COMPLICATION
[2016-09-14] MEDS: SEVELAMER CARBONATE 800 MG TAB (FP) PO SCH ×3 (08:16→17:26)
[2016-09-14 08:22] LABS: BILIRUBIN,TOTAL 0.9 mg/dL (0.2-1.0); TOT PROT 5.2 g/dl (6.4-8.2)
--- NOTE | 2016-09-14 09:38 | PN ---
Progress Note, Physician History of Present Illness: +BC GPCC No c/o foot pain No fever/ chills WBC improved More anemic - Current Medication List Current Medications: Active Medications Acetaminophen (Tylenol -) 650 mg PO Q4H PRN PRN Reason: FEVER OR PAIN Albuterol Sulfate (Ventolin 0.083% Nebulizer Soln -) 1 amp NEB QIDR [facility] Last Admin: 09/14/16 07:08 Dose: Not Given Ascorbic Acid (Vitamin C -) 500 mg PO DAILY [facility] Atorvastatin Calcium (Lipitor -) 20 mg PO HS [facility] Last Admin: 09/13/16 22:19 Dose: Not Given Calcitriol (Rocaltrol -) 0.25 mcg PO DAILY [facility] Carvedilol (Coreg -) 12.5 mg PO BID [facility] Last Admin: 09/13/16 22:18 Dose: 12.5 mg Citalopram Hydrobromide (Celexa -) 20 mg PO DAILY [facility] Clopidogrel Bisulfate (Plavix -) 75 mg PO DAILY [facility] Divalproex Sodium (Depakote -) 250 mg PO BID [facility] Last Admin: 09/13/16 22:19 Dose: Not Given Heparin Sodium (Porcine) (Heparin -) 5,000 unit SQ BID [facility] Last Admin: 09/13/16 22:19 Dose: Not Given Sodium Chloride (Normal Saline -) 1,000 mls @ 50 mls/hr IV ASDIR [facility] Stop: 09/14/16 13:42 Last Admin: 09/13/16 13:51 Dose: 50 mls/hr Piperacillin Sod/Tazobactam Sod (Zosyn 2.25gm Ivpb (Pre-Docked)) 50 mls @ 100 mls/hr IVPB Q6H-IV MAAME PRN Reason: Protocol Last Admin: 09/14/16 03:35 Dose: 100 mls/hr Insulin Detemir (Levemir Vial) 10 units SQ BID [facility] Last Admin: 09/13/16 22:19 Dose: Not Given Isosorbide Mononitrate (Imdur -) 15 mg PO DAILY [facility] Levetiracetam (Keppra Xr -) 500 mg PO DAILY [facility] Sevelamer Carbonate (Renvela -) 800 mg PO TIDCM [facility] Last Admin: 09/13/16 20:47 Dose: Not Given - Objective Vital Signs: Vital Signs Temperature 98.6 F 09/14/16 06:00 Pulse Rate 89 09/14/16 06:34 Respiratory Rate 18 09/14/16 06:34 Blood Pressure 98/60 09/14/16 06:34 O2 Sat by Pulse Oximetry (%) 97 09/14/16 00:44 Constitutional: Yes: No Distress, Pallor Eyes: Yes: Conjunctiva Clear Cardiovascular: Yes: Regular Rate and Rhythm, S1, S2 Respiratory: Yes: CTA Bilaterally Gastrointestinal: Yes: Normal Bowel Sounds, Soft Extremities: Yes: Other (L foot with large malodorous plantar ulcer) Labs: CBC, BMP 09/14/16 06:00 09/14/16 06:00 INR, PTT INR 1.36 (0.82-1.09) H 09/14/16 06:00 Assessment/Plan Infected diabetic foot ulcer Strep bacteremia/ sepsis secondary to infected foot Azotemia Await blood c/s result Check vanco trough Continue vancomycin/ zosyn Debridement
[2016-09-14] MEDS ORDERED: ISOSORBIDE MONONITRATE 30 MG TAB.SR.24H (FP) PO SCH (10:00)
[2016-09-14] MEDS: ACETAMINOPHEN 325 MG TABLET (FP) PO PRN (10:14)
[2016-09-14] MEDS: ASCORBIC ACID 500 MG TABLET (FP) PO SCH (10:15)
[2016-09-14] MEDS ORDERED: VANCOMYCIN 1 GRAM (PRE-DOCKED) 250 ML IVPB ONE (10:15)
[2016-09-14] MEDS: CITALOPRAM HYDROBROMIDE 20 MG TABLET (FP) PO SCH ×2 (10:16→10:46)
[2016-09-14] MEDS ORDERED: SODIUM CHLORIDE 500 ML IV STA (10:18)
[2016-09-14] MEDS ORDERED: PT OWN MED DRAWER 7, Y5N ONE ×2 (10:19→20:55)
[2016-09-14] MEDS: CARVEDILOL 12.5 MG TABLET (FP) PO SCH ×3 (10:20→21:59)
[2016-09-14] MEDS: DIVALPROEX SODIUM 250 MG TABLET E.C. (FP) PO SCH ×3 (10:21→21:59)
[2016-09-14] MEDS: levETIRAcetam XR 500 MG TAB PO SCH ×2 (10:22→10:46)
[2016-09-14] MEDS: CLOPIDOGREL BISULFATE 75 MG TABLET (FP) PO SCH ×2 (10:22→10:46)
[2016-09-14] MEDS: CALCITRIOL 0.25 MCG CAPSULE (FP) PO SCH ×2 (10:23→10:47)
[2016-09-14] MEDS: HEPARIN NA (PORCINE) 5,000 UNITS/ML 1ML VIAL SQ SCH ×2 (10:23→21:59)
--- NOTE | 2016-09-14 10:24 | PN ---
Progress Note (short form) - Note Progress Note: Renal Follow up for CKD Pt seen and examined at the bedside reports pain in the foot no sob or chest pain no N/V/D BP low this morning Vital Signs Temperature 98.6 F 09/14/16 06:00 Pulse Rate 89 09/14/16 06:34 Respiratory Rate 18 09/14/16 06:34 Blood Pressure 98/60 09/14/16 06:34 O2 Sat by Pulse Oximetry (%) 97 09/14/16 00:44 Intake & Output 09/11/16 09/12/16 09/13/16 09/14/16 23:59 23:59 23:59 23:59 Intake Total 50 120 Output Total 200 Balance 50 -80 Weight 192 lb 199 lb 6.4 oz Gen: NAD CVS: RRR, No M/R Lungs: Dec BS in lung bases, no rales Abd: soft NT/ND Ext: 1+ edema in the LE, no sacral edema. B/L TMA. Left foot in dressing with blood and discharge stained on dressing. CBC, BMP 09/14/16 06:00 09/14/16 06:00 Laboratory Tests 09/13/16 09/13/16 09/14/16 11:40 11:40 06:00 MCV 86.7 Random Glucose 386 H* D Calcium 8.2 L 7.5 L Phosphorus 3.2 Magnesium 1.5 L D Total Bilirubin 1.0 D AST 13 L D ALT 16 D Alkaline Phosphatase 171 H D Total Protein 6.5 Albumin 2.2 L D 1.7 L D Current Medications Acetaminophen (Tylenol -) 650 mg PO Q4H PRN PRN Reason: FEVER OR PAIN Albuterol Sulfate (Ventolin 0.083% Nebulizer Soln -) 1 amp NEB QIDR [facility] Last Admin: 09/14/16 07:08 Dose: Not Given Ascorbic Acid (Vitamin C -) 500 mg PO DAILY [facility] Atorvastatin Calcium (Lipitor -) 20 mg PO HS [facility] Last Admin: 09/13/16 22:19 Dose: Not Given Calcitriol (Rocaltrol -) 0.25 mcg PO DAILY [facility] Carvedilol (Coreg -) 12.5 mg PO BID [facility] Last Admin: 09/13/16 22:18 Dose: 12.5 mg Citalopram Hydrobromide (Celexa -) 20 mg PO DAILY [facility] Clopidogrel Bisulfate (Plavix -) 75 mg PO DAILY [facility] Divalproex Sodium (Depakote -) 250 mg PO BID [facility] Last Admin: 09/13/16 22:19 Dose: Not Given Heparin Sodium (Porcine) (Heparin -) 5,000 unit SQ BID [facility] Last Admin: 09/13/16 22:19 Dose: Not Given Sodium Chloride (Normal Saline -) 1,000 mls @ 50 mls/hr IV ASDIR [facility]AME Stop: 09/14/16 13:42 Last Admin: 09/13/16 13:51 Dose: 50 mls/hr Piperacillin Sod/Tazobactam Sod (Zosyn 2.25gm Ivpb (Pre-Docked)) 50 mls @ 100 mls/hr IVPB Q6H-IV MAAME PRN Reason: Protocol Last Admin: 09/14/16 03:35 Dose: 100 mls/hr Vancomycin HCl (Vancomycin (Pre-Docked)) 250 mls @ 200 mls/hr IVPB ONCE ONE Stop: 09/14/16 11:29 Sodium Chloride (Normal Saline -) 500 mls @ 500 mls/hr IV ASDIR STA Stop: 09/14/16 11:17 Sodium Chloride (Normal Saline -) 1,000 mls @ 83 mls/hr IV ASDIR [facility] Insulin Detemir (Levemir Vial) 10 units SQ BID [facility] Last Admin: 09/13/16 22:19 Dose: Not Given Levetiracetam (Keppra Xr -) 500 mg PO DAILY [facility] Sevelamer Carbonate (Renvela -) 800 mg PO TIDCM [facility] Last Admin: 09/13/16 20:47 Dose: Not Given A/P 61 year old Gentleman with PMhx of RUBY (ATN with peak Cr of 4.7), CKD, CAD, CHF , PVD, IDDM with LE wound and found to have Cr of 2.1 and Na of 126. #Hyponatremia (corrected Ca is 130) serum Na stable continue isotonic saline (? no fluids given overnight) Trend Na Daily #Hyperkalemia improved #CKD Stage 3 Trend BUN/Cr no CRISTHIAN/ARB at this time #LE cellulitis/Wound infection/Sepsis Continue VAnco and Zosyn as per ID IVF to keep MAP > 65 ID following Vascuar and Podiatry follow up #Hx of CHF CXR clear no acute decompensation monitor while on IVF Daniel Cid DO
--- NOTE | 2016-09-14 10:52 | PN ---
Progress Note (short form) - Note Progress Note: PODIATRY NOTE Pt seen and examined. Left foot with exposed bone, bleeding. Palpable DP&PT Pulses B/L Pt had abscess drained by me a little over a month ago. Has not been seen since for follow up Now comes in with necrotic foot. WBC Normal as of today Afebrile. All notes Read & Appreciated. Santyl to Left foot Daily,,,Order Written Will need debridement of foot, will Schedule for Friday afternoon if patient stable enough. EKG abnormal Cardiac Clearance Vital Signs Period Temp Pulse Resp BP Sys/Mejia Pulse Ox Last 24 Hr 98.6 F 79-91 18-20 78-112/54-62 97 Laboratory Last Values WBC 6.8 K/mm3 (4.0-10.0) D 09/14/16 06:00 RBC 2.67 M/mm3 (4.00-5.60) L 09/14/16 06:00 Hgb 7.5 GM/dL (11.7-16.9) L D 09/14/16 06:00 Hct 22.6 % (35.4-49) L D 09/14/16 06:00 MCV 84.8 fl (80-96) 09/14/16 06:00 MCHC 33.3 g/dl (32.0-35.9) 09/14/16 06:00 RDW 16.7 % (11.9-15.9) H 09/14/16 06:00 Plt Count 212 K/MM3 (134-434) D 09/14/16 06:00 MPV 7.4 fl (7.5-11.1) L 09/14/16 06:00 Neutrophils % 80.3 % (42.8-82.8) 09/14/16 06:00 Lymphocytes % 10.4 % (8-40) D 09/14/16 06:00 Monocytes % 7.8 % (3.8-10.2) 09/14/16 06:00 Eosinophils % 0.9 % (0-4.5) D 09/14/16 06:00 Basophils % 0.6 % (0-2.0) 09/14/16 06:00 INR 1.36 (0.82-1.09) H 09/14/16 06:00 PTT (Actin FS) 34.5 SECONDS (26.9-34.4) H D 09/14/16 06:00 Sodium 129 mmol/L (136-145) L 09/14/16 06:00 Potassium 4.7 mmol/L (3.5-5.1) 09/14/16 06:00 Chloride 94 mmol/L (98-107) L 09/14/16 06:00 Carbon Dioxide 25 mmol/L (21-32) 09/14/16 06:00 Anion Gap 10 (8-16) 09/14/16 06:00 BUN 22 mg/dL (7-18) H 09/14/16 06:00 Creatinine 2.0 mg/dL (0.7-1.3) H 09/14/16 06:00 Creat Clearance w eGFR 33.91 (>60) 09/14/16 06:00 Random Glucose 160 mg/dL (74-106) H D 09/14/16 06:00 Calcium 7.5 mg/dL (8.5-10.1) L 09/14/16 06:00 Phosphorus 3.2 mg/dL (2.5-4.9) 09/14/16 06:00 Magnesium 1.5 mg/dL (1.8-2.4) L D 09/14/16 06:00 Total Bilirubin 0.9 mg/dL (0.2-1.0) 09/14/16 06:00 AST 14 U/L (15-37) L 09/14/16 06:00 ALT 12 U/L (12-78) D 09/14/16 06:00 Alkaline Phosphatase 123 U/L (45-117) H D 09/14/16 06:00 B-Natriuretic Peptide 67418.57 pg/ml (5-125) H 09/14/16 06:00 Total Protein 5.2 g/dl (6.4-8.2) L 09/14/16 06:00 Albumin 1.7 g/dl (3.4-5.0) L D 09/14/16 06:00 Urine Color Yellow 09/13/16 18:15 Urine Appearance Clear 09/13/16 18:15 Urine pH 5.0 (5.0-8.0) 09/13/16 18:15 Ur Specific [place] 1.016 (1.001-1.035) 09/13/16 18:15 Urine Protein 2+ (NEGATIVE) H 09/13/16 18:15 Urine Glucose (UA) 3+ (NEGATIVE) H 09/13/16 18:15 Urine Ketones Negative (NEGATIVE) 09/13/16 18:15 Urine Blood 2+ (NEGATIVE) H 09/13/16 18:15 Urine Nitrite Negative (NEGATIVE) 09/13/16 18:15 Urine Bilirubin Negative (NEGATIVE) 09/13/16 18:15 Urine Urobilinogen Negative E.U./dl (0.2-1.0) 09/13/16 18:15 Ur Leukocyte Esterase Negative (NEGATIVE) 09/13/16 18:15 Urine RBC 20 /hpf (0-3) 09/13/16 18:15 Urine WBC 3 /hpf (3-5) 09/13/16 18:15 Hyaline Casts 3 /lpf 09/13/16 18:15 Urine Mucus Rare 09/13/16 18:15 U Random Total Protein 128 mg/dl (5-11.9) H 09/13/16 18:15 Ur Random Sodium 13 MMOL/L 09/13/16 18:15 Ur Random Urea Nitrogn 444 mg/dL 09/13/16 18:15 Urine Creatinine 98.9 mg/dL 09/13/16 18:15 Vancomycin Trough 7.267 ug/ml (5.0-10.0) D 09/14/16 06:00 Random Vancomycin 7.419 ug/ml 09/14/16 06:00 Blood Type O POSITIVE 09/13/16 11:40 Antibody Screen Negative 09/13/16 11:40 INR, PTT INR 1.36 (0.82-1.09) H 09/14/16 06:00 Current Active Problems RUBY (acute kidney injury) (Acute) CHF exacerbation (Acute) Cellulitis and abscess of foot (Acute) Diabetic foot infection (Acute) Elevated troponin I measurement (Acute) Glaucoma (Acute) Hyperglycemia (Acute) Hyponatremia (Acute) 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 complication (Acute) Wound infection (Acute) Diabetic foot ulcer (Chronic) Diabetic neuropathy (Chronic) Osteomyelitis (Chronic)
[2016-09-14] MEDS ORDERED: MAGNESIUM SULF 50% (8.12 MEQ/2 ML-1 GM VIAL) IVPB ONE (11:00)
--- NOTE | 2016-09-14 11:40 | PN ---
Progress Note, Physician History of Present Illness: seen and examined today in nad. no overnight events. no new complaints. - Current Medication List Current Medications: Active Medications Acetaminophen (Tylenol -) 650 mg PO Q4H PRN PRN Reason: FEVER OR PAIN Last Admin: 09/14/16 10:14 Dose: 650 mg Albuterol Sulfate (Ventolin 0.083% Nebulizer Soln -) 1 amp NEB QIDR [facility] Last Admin: 09/14/16 11:39 Dose: Not Given Ascorbic Acid (Vitamin C -) 500 mg PO DAILY [facility] Last Admin: 09/14/16 10:15 Dose: 500 mg Atorvastatin Calcium (Lipitor -) 20 mg PO HS [facility] Last Admin: 09/13/16 22:19 Dose: Not Given Calcitriol (Rocaltrol -) 0.25 mcg PO DAILY [facility] Last Admin: 09/14/16 10:47 Dose: Not Given Carvedilol (Coreg -) 12.5 mg PO BID [facility] Last Admin: 09/14/16 10:46 Dose: Not Given Citalopram Hydrobromide (Celexa -) 20 mg PO DAILY [facility] Last Admin: 09/14/16 10:46 Dose: Not Given Clopidogrel Bisulfate (Plavix -) 75 mg PO DAILY [facility] Last Admin: 09/14/16 10:46 Dose: Not Given Collagenase (Santyl -) 1 applic TP DAILY [facility] Divalproex Sodium (Depakote -) 250 mg PO BID [facility] Last Admin: 09/14/16 10:46 Dose: Not Given Heparin Sodium (Porcine) (Heparin -) 5,000 unit SQ BID [facility] Last Admin: 09/14/16 10:23 Dose: 5,000 unit Sodium Chloride (Normal Saline -) 1,000 mls @ 50 mls/hr IV ASDIR [facility] Stop: 09/14/16 13:42 Last Admin: 09/13/16 13:51 Dose: 50 mls/hr Piperacillin Sod/Tazobactam Sod (Zosyn 2.25gm Ivpb (Pre-Docked)) 50 mls @ 100 mls/hr IVPB Q6H-IV [facility] PRN Reason: Protocol Last Admin: 09/14/16 10:23 Dose: Not Given Sodium Chloride (Normal Saline -) 1,000 mls @ 83 mls/hr IV ASDIR [facility] Insulin Detemir (Levemir Vial) 10 units SQ BID [facility] Last Admin: 09/13/16 22:19 Dose: Not Given Levetiracetam (Keppra Xr -) 500 mg PO DAILY [facility] Last Admin: 09/14/16 10:46 Dose: Not Given Sevelamer Carbonate (Renvela -) 800 mg PO TIDCM [facility] Last Admin: 09/14/16 08:16 Dose: 800 mg Tramadol HCl (Ultram -) 50 mg PO Q6H PRN PRN Reason: PAIN - Objective Vital Signs: Vital Signs Temperature 98.6 F 09/14/16 06:00 Pulse Rate 89 09/14/16 06:34 Respiratory Rate 18 09/14/16 06:34 Blood Pressure 98/60 09/14/16 06:34 O2 Sat by Pulse Oximetry (%) 97 09/14/16 00:44 Constitutional: Yes: No Distress, Calm Eyes: Yes: Conjunctiva Clear, EOM Intact, PERRL HENT: Yes: Atraumatic, Normocephalic Neck: Yes: Supple, Trachea Midline Cardiovascular: Yes: Regular Rate and Rhythm, Murmur, S1, S2. No: Bradycardia, Tachycardia, Pulse Irregular, Bruit, JVD, Gallop, Rub, S3, S4, Varicosities Respiratory: Yes: Regular, CTA Bilaterally. No: Rales, Rhonchi, Wheezes Gastrointestinal: Yes: Normal Bowel Sounds, Soft. No: Distention, Tenderness Musculoskeletal: Yes: Joint Swelling, Muscle Weakness Extremities: Yes: Amputation Edema: Yes Edema: LLE: 2+, RLE: Trace Peripheral Pulses WNL: No Neurological: Yes: Alert, Oriented Psychiatric: Yes: Alert, Oriented Labs: CBC, BMP 09/14/16 06:00 09/14/16 06:00 INR, PTT INR 1.36 (0.82-1.09) H 09/14/16 06:00 - ....Imaging Chest X-ray: Report Reviewed, Image Reviewed EKG: Report Reviewed, Image Reviewed Other: Report Reviewed, Image Reviewed Assessment/Plan LLE cellulitis, chronic infected wound- Sepsis CAD s/p CABG Severe LV dysfunction w/ chronic systolic CHF Chronic anemia History GI bleed/guaiac + stool CKD Hyponatremia REC: ID and surgical/podiatry evaluations appreciated Receiving Abx Planned for debridement Doppler LE showed no DVT Pt euvolemic/intravascularly depleted from CHF standpoint likely due to reported diarrhea, sepsis, poor po intake thus Lasix stopped at pt given IVF Will need to resume Lasix at some point once condition improves Renal evaluation appreciated Continue home Coreg and Lipitor If plavix needs to be held for procedure it can be, would resume pricila after procedure There is no cardiac contraindication to planned urgent procedures
[2016-09-14] MEDS: traMADol HCL 50 MG TABLET PO PRN (12:01)
[2016-09-14] MEDS: INSULIN DETEMIR 100 UNITS/ML MDV SQ SCH ×3 (12:09→22:50)
[2016-09-14] MEDS: SODIUM CHLORIDE 1,000 ML IV SCH (12:17)
[2016-09-14] MEDS ORDERED: INSULIN DETEMIR 100 UNITS/ML MDV SQ ONE (12:23)
--- NOTE | 2016-09-14 18:10 | EKG ---
Test Reason : Blood Pressure : / mmHG Vent. Rate : 081 BPM Atrial Rate : 081 BPM P-R Int : 182 ms QRS Dur : 110 ms QT Int : 446 ms P-R-T Axes : 067 -27 246 degrees QTc Int : 518 ms SINUS RHYTHM WITH PREMATURE SUPRAVENTRICULAR COMPLEXES AND WITH OCCASIONAL PREMATURE VENTRICULAR COMPLEXES NON-SPECIFIC INTRA-VENTRICULAR CONDUCTION DELAY PROLONGED QT ABNORMAL ECG WHEN COMPARED WITH ECG OF 13-SEP-2016 14:40, PREMATURE SUPRAVENTRICULAR COMPLEXES ARE NOW PRESENT CLINICAL CORRELATION IS RECOMMENDED Confirmed by HAROLDO DAVIDSON, LORE ([id number]) on 09/14/2016 6:10:22 PM Referred By: Yarelis ALCARAZ Confirmed By:LORE ZARCO MD
[2016-09-14] MEDS: ATORVASTATIN CA 20 MG TABLET (FP) PO SCH (21:59)
[2016-09-15] MEDS: PIPERACILLIN/TAZOB 2.25 GM 50 ML IVPB SCH ×2 (02:25→08:24)
[2016-09-15] MEDS: traMADol HCL 50 MG TABLET PO PRN (02:29)
[2016-09-15] MEDS ORDERED: PT OWN MED DRAWER 7, Y5N ONE ×4 (06:24→21:08)
[2016-09-15] MEDS: ALBUTEROL SO4 0.083% IH SOL 2.5 MG/3 ML VIAL.NEB. NEB SCH ×3 (06:25→17:15)
[2016-09-15 07:36] LABS: BASOPHIL 0.7 % (0-2.0); EOSINOPHIL 1.6 % (0-4.5); MCH 28.5 pg (25.7-33.7); MCHC 33.4 g/dl (32.0-35.9); MEAN CELL VOLUME 85.3 fl (80-96); MEAN PLT VOLUME 7.6 fl (7.5-11.1); NEUTROPHILS 75.6 % (42.8-82.8); PLATELET COUNT 245 K/MM3 (134-434); RDW 15.8 % (11.9-15.9); WHITE BLOOD COUNT 8.1 K/mm3 (4.0-10.0)
[2016-09-15 07:50] LABS: CALCIUM 7.7 mg/dL (8.5-10.1); COCKROFT - GAULT 50.83; CREATININE 1.9 mg/dL (0.7-1.3); MAGNESIUM 2.3 mg/dL (1.8-2.4); PHOSPHOROUS 3.8 mg/dL (2.5-4.9)
[2016-09-15] MEDS: SEVELAMER CARBONATE 800 MG TAB (FP) PO SCH ×4 (08:23→18:02)
--- NOTE | 2016-09-15 08:41 | PN ---
Progress Note, Physician - Current Medication List Current Medications: Active Medications Acetaminophen (Tylenol -) 650 mg PO Q4H PRN PRN Reason: FEVER OR PAIN Last Admin: 09/14/16 10:14 Dose: 650 mg Albuterol Sulfate (Ventolin 0.083% Nebulizer Soln -) 1 amp NEB QIDR [facility] Last Admin: 09/15/16 06:25 Dose: Not Given Ascorbic Acid (Vitamin C -) 500 mg PO DAILY [facility] Last Admin: 09/14/16 10:15 Dose: 500 mg Atorvastatin Calcium (Lipitor -) 20 mg PO HS [facility] Last Admin: 09/14/16 21:59 Dose: Not Given Calcitriol (Rocaltrol -) 0.25 mcg PO DAILY [facility] Last Admin: 09/14/16 10:47 Dose: Not Given Carvedilol (Coreg -) 12.5 mg PO BID [facility] Last Admin: 09/14/16 21:59 Dose: Not Given Citalopram Hydrobromide (Celexa -) 20 mg PO DAILY [facility] Last Admin: 09/14/16 10:46 Dose: Not Given Clopidogrel Bisulfate (Plavix -) 75 mg PO DAILY [facility] Last Admin: 09/14/16 10:46 Dose: Not Given Collagenase (Santyl -) 1 applic TP DAILY [facility] Divalproex Sodium (Depakote -) 250 mg PO BID [facility] Last Admin: 09/14/16 21:59 Dose: Not Given Heparin Sodium (Porcine) (Heparin -) 5,000 unit SQ BID [facility] Last Admin: 09/14/16 21:59 Dose: Not Given Piperacillin Sod/Tazobactam Sod (Zosyn 2.25gm Ivpb (Pre-Docked)) 50 mls @ 100 mls/hr IVPB Q6H-IV [facility] PRN Reason: Protocol Last Admin: 09/15/16 08:24 Dose: 100 mls/hr Sodium Chloride (Normal Saline -) 1,000 mls @ 83 mls/hr IV ASDIR [facility] Last Admin: 09/14/16 12:17 Dose: 83 mls/hr Insulin Detemir (Levemir Vial) 10 units SQ BID [facility] Last Admin: 09/14/16 22:50 Dose: 10 units Levetiracetam (Keppra Xr -) 500 mg PO DAILY [facility] Last Admin: 09/14/16 10:46 Dose: Not Given Sevelamer Carbonate (Renvela -) 800 mg PO TIDCM [facility] Last Admin: 09/15/16 08:23 Dose: 800 mg Tramadol HCl (Ultram -) 50 mg PO Q6H PRN PRN Reason: PAIN Last Admin: 09/15/16 02:29 Dose: 50 mg - Objective Vital Signs: Vital Signs Temperature 97.2 F L 09/15/16 06:00 Pulse Rate 77 09/15/16 06:00 Respiratory Rate 18 09/15/16 06:00 Blood Pressure 89/56 09/15/16 06:00 O2 Sat by Pulse Oximetry (%) 98 09/14/16 21:00 Cardiovascular: Yes: S1, S2 Respiratory: Yes: Regular, CTA Bilaterally Gastrointestinal: Yes: Normal Bowel Sounds, Soft Edema: Yes Labs: CBC, BMP 09/15/16 06:00 09/15/16 06:00 INR, PTT INR 1.36 (0.82-1.09) H 09/14/16 06:00 Problem List - Problems (1) Diabetic foot infection Assessment/Plan: WOUND CARE VASCULAR AND PODIATRY ABX--ID Code(s): E11.69 - TYPE 2 DIABETES MELLITUS WITH OTHER SPECIFIED COMPLICATION L08.9 - LOCAL INFECTION OF THE SKIN AND SUBCUTANEOUS TISSUE, UNSP (2) RUBY (acute kidney injury) Assessment/Plan: MONITOR ON CURRENT MEDS Code(s): N17.9 - ACUTE KIDNEY FAILURE, UNSPECIFIED (3) CHF exacerbation Assessment/Plan: LASIX CARDIO Code(s): I50.9 - HEART FAILURE, UNSPECIFIED Qualifiers: Congestive heart failure type: unspecified congestive heart failure type Qualified Code(s): I50.9 - Heart failure, unspecified (4) 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 complication Assessment/Plan: BGM AND SS Code(s): E11.29 - TYPE 2 DIABETES MELLITUS W OTH DIABETIC KIDNEY COMPLICATION (5) Edema Assessment/Plan: DUPLEX Code(s): R60.9 - EDEMA, UNSPECIFIED
--- NOTE | 2016-09-15 09:26 | PN ---
Progress Note, Physician Chief Complaint: ID vancomycin zosyn No complaints Positive blood cultures !! Enterococcus Foot necrotic - Current Medication List Current Medications: Active Medications Acetaminophen (Tylenol -) 650 mg PO Q4H PRN PRN Reason: FEVER OR PAIN Last Admin: 09/14/16 10:14 Dose: 650 mg Albuterol Sulfate (Ventolin 0.083% Nebulizer Soln -) 1 amp NEB QIDR [facility] Last Admin: 09/15/16 06:25 Dose: Not Given Ascorbic Acid (Vitamin C -) 500 mg PO DAILY [facility] Last Admin: 09/14/16 10:15 Dose: 500 mg Atorvastatin Calcium (Lipitor -) 20 mg PO HS [facility] Last Admin: 09/14/16 21:59 Dose: Not Given Calcitriol (Rocaltrol -) 0.25 mcg PO DAILY [facility] Last Admin: 09/14/16 10:47 Dose: Not Given Carvedilol (Coreg -) 12.5 mg PO BID [facility] Last Admin: 09/14/16 21:59 Dose: Not Given Citalopram Hydrobromide (Celexa -) 20 mg PO DAILY [facility] Last Admin: 09/14/16 10:46 Dose: Not Given Clopidogrel Bisulfate (Plavix -) 75 mg PO DAILY [facility] Last Admin: 09/14/16 10:46 Dose: Not Given Collagenase (Santyl -) 1 applic TP DAILY [facility] Divalproex Sodium (Depakote -) 250 mg PO BID [facility] Last Admin: 09/14/16 21:59 Dose: Not Given Heparin Sodium (Porcine) (Heparin -) 5,000 unit SQ BID [facility] Last Admin: 09/14/16 21:59 Dose: Not Given Piperacillin Sod/Tazobactam Sod (Zosyn 2.25gm Ivpb (Pre-Docked)) 50 mls @ 100 mls/hr IVPB Q6H-IV [facility] PRN Reason: Protocol Last Admin: 09/15/16 08:24 Dose: 100 mls/hr Sodium Chloride (Normal Saline -) 1,000 mls @ 83 mls/hr IV ASDIR [facility] Last Admin: 09/14/16 12:17 Dose: 83 mls/hr Insulin Detemir (Levemir Vial) 10 units SQ BID [facility] Last Admin: 09/14/16 22:50 Dose: 10 units Levetiracetam (Keppra Xr -) 500 mg PO DAILY [facility] Last Admin: 09/14/16 10:46 Dose: Not Given Sevelamer Carbonate (Renvela -) 800 mg PO TIDCM [facility] Last Admin: 09/15/16 08:50 Dose: Not Given Tramadol HCl (Ultram -) 50 mg PO Q6H PRN PRN Reason: PAIN Last Admin: 09/15/16 02:29 Dose: 50 mg - Objective Vital Signs: Vital Signs Temperature 97.7 F 09/15/16 08:15 Pulse Rate 78 09/15/16 08:15 Respiratory Rate 20 09/15/16 08:15 Blood Pressure 102/62 09/15/16 08:15 O2 Sat by Pulse Oximetry (%) 98 09/14/16 21:00 Constitutional: Yes: Well Nourished, No Distress Eyes: Yes: WNL, Conjunctiva Clear HENT: Yes: WNL, Atraumatic Neck: Yes: WNL, Supple Cardiovascular: Yes: S1, S2 Respiratory: Yes: WNL, Regular, CTA Bilaterally Gastrointestinal: Yes: WNL, Normal Bowel Sounds, Soft. No: Tenderness, Tenderness, Epigastrium Extremities: Yes: Other (necrotic copiuous bleeding and drainage) Labs: CBC, BMP 09/15/16 06:00 09/15/16 06:00 INR, PTT INR 1.36 (0.82-1.09) H 09/14/16 06:00 Problem List - Problems (1) Cellulitis and abscess of foot Code(s): L03.119 - CELLULITIS OF UNSPECIFIED PART OF LIMB L02.619 - CUTANEOUS ABSCESS OF UNSPECIFIED FOOT (2) Enterococcal bacteremia Code(s): R78.81 - BACTEREMIA Assessment/Plan Microbiology 09/13/16 10:52 Blood - Peripheral Venous Blood Culture - Preliminary Pending Organism 09/13/16 10:52 Blood - Peripheral Venous Blood Culture - Preliminary Pending Organism 09/13/16 10:44 Foot - Left Lateral Wound Culture - Preliminary Staphylococcus Coagulase Neg Group D Strep Or Entero Coccus Diphtheroid/Corynebacterium Laboratory Tests 09/14/16 09/15/16 09/15/16 06:00 06:00 06:00 WBC 8.1 Hgb 9.1 L D Hct 27.2 L D Plt Count 245 BUN 23 H Creatinine 1.9 H Vancomycin Trough 7.267 D Assessment Necrotic foot with bacteremia ? VREF sensi pending latter today Plan Continue Vancomcyin May need dapto 9-10mg kg Repeat blood cultures ECHO ESR CRP ? Amputation Binta DAVIDSON
[2016-09-15] MEDS: CARVEDILOL 12.5 MG TABLET (FP) PO SCH ×2 (09:43→22:09)
[2016-09-15] MEDS: CITALOPRAM HYDROBROMIDE 20 MG TABLET (FP) PO SCH (09:43)
[2016-09-15] MEDS: levETIRAcetam XR 500 MG TAB PO SCH (09:44)
[2016-09-15] MEDS: DIVALPROEX SODIUM 250 MG TABLET E.C. (FP) PO SCH ×2 (09:44→22:09)
[2016-09-15] MEDS: CLOPIDOGREL BISULFATE 75 MG TABLET (FP) PO SCH (09:44)
[2016-09-15] MEDS: CALCITRIOL 0.25 MCG CAPSULE (FP) PO SCH (09:44)
[2016-09-15] MEDS: HEPARIN NA (PORCINE) 5,000 UNITS/ML 1ML VIAL SQ SCH ×2 (09:45→22:13)
[2016-09-15] MEDS: ASCORBIC ACID 500 MG TABLET (FP) PO SCH (09:45)
--- NOTE | 2016-09-15 09:45 | PN ---
Progress Note, Physician History of Present Illness: seen and examined today in nad. states that he had a bad night sleep last night and doesnt want to talk to anyone today. - Current Medication List Current Medications: Active Medications Acetaminophen (Tylenol -) 650 mg PO Q4H PRN PRN Reason: FEVER OR PAIN Last Admin: 09/14/16 10:14 Dose: 650 mg Albuterol Sulfate (Ventolin 0.083% Nebulizer Soln -) 1 amp NEB QIDR [facility] Last Admin: 09/15/16 06:25 Dose: Not Given Ascorbic Acid (Vitamin C -) 500 mg PO DAILY [facility] Last Admin: 09/14/16 10:15 Dose: 500 mg Atorvastatin Calcium (Lipitor -) 20 mg PO HS [facility] Last Admin: 09/14/16 21:59 Dose: Not Given Calcitriol (Rocaltrol -) 0.25 mcg PO DAILY [facility] Last Admin: 09/14/16 10:47 Dose: Not Given Carvedilol (Coreg -) 12.5 mg PO BID [facility] Last Admin: 09/14/16 21:59 Dose: Not Given Citalopram Hydrobromide (Celexa -) 20 mg PO DAILY [facility] Last Admin: 09/14/16 10:46 Dose: Not Given Clopidogrel Bisulfate (Plavix -) 75 mg PO DAILY [facility] Last Admin: 09/14/16 10:46 Dose: Not Given Collagenase (Santyl -) 1 applic TP DAILY [facility] Divalproex Sodium (Depakote -) 250 mg PO BID [facility] Last Admin: 09/14/16 21:59 Dose: Not Given Heparin Sodium (Porcine) (Heparin -) 5,000 unit SQ BID [facility] Last Admin: 09/14/16 21:59 Dose: Not Given Sodium Chloride (Normal Saline -) 1,000 mls @ 83 mls/hr IV ASDIR [facility] Last Admin: 09/14/16 12:17 Dose: 83 mls/hr Vancomycin HCl 1,250 mg/ (Dextrose) 250 mls @ 125 mls/hr IVPB DAILY@1000 [facility] PRN Reason: Protocol Insulin Detemir (Levemir Vial) 10 units SQ BID [facility] Last Admin: 09/14/16 22:50 Dose: 10 units Levetiracetam (Keppra Xr -) 500 mg PO DAILY [facility] Last Admin: 09/14/16 10:46 Dose: Not Given Sevelamer Carbonate (Renvela -) 800 mg PO TIDCM [facility] Last Admin: 09/15/16 08:50 Dose: Not Given Tramadol HCl (Ultram -) 50 mg PO Q6H PRN PRN Reason: PAIN Last Admin: 09/15/16 02:29 Dose: 50 mg - Objective Vital Signs: Vital Signs Temperature 97.7 F 09/15/16 08:15 Pulse Rate 78 09/15/16 08:15 Respiratory Rate 20 09/15/16 08:15 Blood Pressure 102/62 09/15/16 08:15 O2 Sat by Pulse Oximetry (%) 98 09/14/16 21:00 Constitutional: Yes: No Distress, Calm Eyes: Yes: Conjunctiva Clear, EOM Intact, PERRL HENT: Yes: Atraumatic, Normocephalic Neck: Yes: Supple, Trachea Midline Cardiovascular: Yes: Regular Rate and Rhythm, S1, S2. No: Bradycardia, Tachycardia, Pulse Irregular, Bruit, JVD, Gallop, Murmur, Rub, S3, S4, Varicosities Respiratory: Yes: Regular, Diminished. No: Rales, Rhonchi, SOB, Wheezes Gastrointestinal: Yes: Normal Bowel Sounds, Soft. No: Distention, Tenderness Musculoskeletal: Yes: Muscle Weakness Extremities: Yes: Amputation Edema: Yes Peripheral Pulses WNL: No Neurological: Yes: Alert, Oriented Psychiatric: Yes: Alert, Oriented Labs: CBC, BMP 09/15/16 06:00 09/15/16 06:00 INR, PTT INR 1.36 (0.82-1.09) H 09/14/16 06:00 - ....Imaging Chest X-ray: Report Reviewed, Image Reviewed EKG: Report Reviewed, Image Reviewed Other: Report Reviewed, Image Reviewed Assessment/Plan Necrotic foot wound Sepsis CAD s/p CABG Severe LV dysfunction w/ chronic systolic CHF Chronic anemia History GI bleed/guaiac + stool CKD Hyponatremia REC: ID and surgical/podiatry evaluations appreciated Receiving Abx Planned for debridement vs amputation Doppler LE showed no DVT Pt euvolemic/intravascularly depleted from CHF standpoint likely due to reported diarrhea, sepsis, poor po intake thus Lasix stopped at pt given IVF Will need to resume Lasix at some point once condition improves Renal evaluation appreciated Continue home Coreg and Lipitor If plavix needs to be held for procedure it can be, would resume pricila after procedure Pt has known chronic cardiac conditions, no active symptoms, there is no cardiac contraindication to planned urgent procedures including debridement and possible amputation
[2016-09-15] MEDS: INSULIN DETEMIR 100 UNITS/ML MDV SQ SCH ×2 (09:50→22:13)
[2016-09-15] MEDS ORDERED: INSULIN DETEMIR 100 UNITS/ML MDV SQ ONE (09:53)
[2016-09-15] MEDS: VANCOMYCIN 1,250 MG in DEXTROSE 5%-WATER - 250 ML IVPB SCH (10:48)
[2016-09-15 11:50] LABS: C-REACTIVE PROTEIN 13.3 MG/DL (0.00-0.3)
[2016-09-15] MEDS: COLLAGENASE CLOSTRIDIUM HIST. 30 GRAMS TUBE TP SCH (13:30)
[2016-09-15] MEDS: SODIUM CHLORIDE 1,000 ML IV SCH ×2 (13:55)
[2016-09-15 14:01] LABS: URINE APPEARANCE SLCLOUDY; URINE BILIRUBIN NEGATIVE (NEGATIVE); URINE COLOR YELLOW; URINE GLUCOSE (UA) 1+ (NEGATIVE); URINE KETONE NEGATIVE (NEGATIVE); URINE LEUK ESTERASE NEGATIVE (NEGATIVE); URINE NITRITE NEGATIVE (NEGATIVE); URINE UROBILINOGEN NEGATIVE E.U./dl (0.2-1.0)
[2016-09-15 14:03] LABS: URINE BLOOD 2+ (NEGATIVE); URINE PROTEIN 1+ (NEGATIVE)
[2016-09-15 14:16] LABS: URINE MUCUS RARE; URINE RBC 11 /hpf (0-3)
--- NOTE | 2016-09-15 14:37 | PN ---
Progress Note (short form) - Note Progress Note: PODIATRY NOTE Left foot with exposed bone, bleeding. Palpable DP&PT Pulses B/L Pt had abscess drained by me a little over a month ago. Has not been seen since for follow up H&H Much improved WBC Normal as of today Afebrile. * All notes Read & Appreciated. 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 Will continue to D/W patient if he still refuses BKA then a debridement will be done. * PLAN: Currently a debridement is the only thing the patient will agree too, therefore need to Stop Plavix for several days before Surgery as patient has a history of volume depletion and poor cardiac output that results in post operative complications. Will consider debridement on Friday. Vital Signs Period Temp Pulse Resp BP Sys/Mejia Pulse Ox Last 24 Hr 96.3 F-98.1 F 60-82 18-20 84-102/48-62 98 INR, PTT INR 1.36 (0.82-1.09) H 09/14/16 06:00 Laboratory Last Values WBC 8.1 K/mm3 (4.0-10.0) 09/15/16 06:00 RBC 3.19 M/mm3 (4.00-5.60) L 09/15/16 06:00 Hgb 9.1 GM/dL (11.7-16.9) L D 09/15/16 06:00 Hct 27.2 % (35.4-49) L D 09/15/16 06:00 MCV 85.3 fl (80-96) 09/15/16 06:00 MCHC 33.4 g/dl (32.0-35.9) 09/15/16 06:00 RDW 15.8 % (11.9-15.9) 09/15/16 06:00 Plt Count 245 K/MM3 (134-434) 09/15/16 06:00 MPV 7.6 fl (7.5-11.1) 09/15/16 06:00 Neutrophils % 75.6 % (42.8-82.8) 09/15/16 06:00 Lymphocytes % 13.6 % (8-40) D 09/15/16 06:00 Monocytes % 8.5 % (3.8-10.2) 09/15/16 06:00 Eosinophils % 1.6 % (0-4.5) 09/15/16 06:00 Basophils % 0.7 % (0-2.0) 09/15/16 06:00 INR 1.36 (0.82-1.09) H 09/14/16 06:00 PTT (Actin FS) 34.5 SECONDS (26.9-34.4) H D 09/14/16 06:00 Sodium 130 mmol/L (136-145) L 09/15/16 06:00 Potassium 4.4 mmol/L (3.5-5.1) 09/15/16 06:00 Chloride 98 mmol/L (98-107) 09/15/16 06:00 Carbon Dioxide 21 mmol/L (21-32) 09/15/16 06:00 Anion Gap 11 (8-16) 09/15/16 06:00 BUN 23 mg/dL (7-18) H 09/15/16 06:00 Creatinine 1.9 mg/dL (0.7-1.3) H 09/15/16 06:00 Creat Clearance w eGFR 33.91 (>60) 09/14/16 06:00 POC Glucometer 89 UNITS (()) 09/15/16 11:35 Random Glucose 67 mg/dL (74-106) L D 09/15/16 06:00 Calcium 7.7 mg/dL (8.5-10.1) L 09/15/16 06:00 Phosphorus 3.8 mg/dL (2.5-4.9) 09/15/16 06:00 Magnesium 2.3 mg/dL (1.8-2.4) D 09/15/16 06:00 Total Bilirubin 0.9 mg/dL (0.2-1.0) 09/14/16 06:00 AST 14 U/L (15-37) L 09/14/16 06:00 ALT 12 U/L (12-78) D 09/14/16 06:00 Alkaline Phosphatase 123 U/L (45-117) H D 09/14/16 06:00 C-Reactive Protein 13.3 MG/DL (0.00-0.3) H D 09/15/16 06:00 B-Natriuretic Peptide 59937.57 pg/ml (5-125) H 09/14/16 06:00 Total Protein 5.2 g/dl (6.4-8.2) L 09/14/16 06:00 Albumin 1.7 g/dl (3.4-5.0) L D 09/14/16 06:00 Urine Color Yellow 09/15/16 13:25 Urine Appearance Slcloudy 09/15/16 13:25 Urine pH 5.0 (5.0-8.0) 09/15/16 13:25 Ur Specific [place] 1.023 (1.001-1.035) 09/15/16 13:25 Urine Protein 1+ (NEGATIVE) H 09/15/16 13:25 Urine Glucose (UA) 1+ (NEGATIVE) H 09/15/16 13:25 Urine Ketones Negative (NEGATIVE) 09/15/16 13:25 Urine Blood 2+ (NEGATIVE) H 09/15/16 13:25 Urine Nitrite Negative (NEGATIVE) 09/15/16 13:25 Urine Bilirubin Negative (NEGATIVE) 09/15/16 13:25 Urine Urobilinogen Negative E.U./dl (0.2-1.0) 09/15/16 13:25 Ur Leukocyte Esterase Negative (NEGATIVE) 09/15/16 13:25 Urine RBC 11 /hpf (0-3) 09/15/16 13:25 Urine WBC None /hpf (3-5) 09/15/16 13:25 Hyaline Casts 3 /lpf 09/13/16 18:15 Urine Mucus Rare 09/15/16 13:25 U Random Total Protein 128 mg/dl (5-11.9) H 09/13/16 18:15 Ur Random Sodium 13 MMOL/L 09/13/16 18:15 Ur Random Urea Nitrogn 444 mg/dL 09/13/16 18:15 Urine Creatinine 98.9 mg/dL 09/13/16 18:15 Vancomycin Trough 7.267 ug/ml (5.0-10.0) D 09/14/16 06:00 Random Vancomycin 13.379 ug/ml 09/15/16 06:00 Blood Type O POSITIVE 09/13/16 11:40 Antibody Screen Negative 09/13/16 11:40 Crossmatch See Detail 09/13/16 11:40 Current Medications Generic Name Dose Route Start Last Admin Trade Name Ciara PRN Reason Stop Dose Admin Acetaminophen 650 mg 09/13/16 13:39 09/14/16 10:14 Tylenol - PO 650 mg Q4H PRN Administration FEVER OR PAIN Albuterol Sulfate 1 amp 09/13/16 18:00 09/15/16 11:20 Ventolin 0.083% Nebulizer Soln - NEB Not Given QIDR [facility] Ascorbic Acid 500 mg 09/14/16 10:00 09/15/16 09:45 Vitamin C - PO 500 mg DAILY [facility] Administration Atorvastatin Calcium 20 mg 09/13/16 22:00 09/14/16 21:59 Lipitor - PO Not Given HS [facility] Calcitriol 0.25 mcg 09/14/16 10:00 09/15/16 09:44 Rocaltrol - PO 0.25 mcg DAILY [facility] Administration Carvedilol 12.5 mg 09/13/16 22:00 09/15/16 09:43 Coreg - PO 12.5 mg BID [facility] Administration Citalopram Hydrobromide 20 mg 09/14/16 10:00 09/15/16 09:43 Celexa - PO 20 mg DAILY [facility] Administration Clopidogrel Bisulfate 75 mg 09/14/16 10:00 09/15/16 09:44 Plavix - PO 75 mg DAILY [facility] Administration Collagenase 1 applic 09/15/16 10:00 09/15/16 13:30 Santyl - TP 1 applic DAILY [facility] Administration Divalproex Sodium 250 mg 09/13/16 22:00 09/15/16 09:44 Depakote - PO 250 mg BID [facility] Administration Heparin Sodium (Porcine) 5,000 unit 09/13/16 22:00 09/15/16 09:45 Heparin - SQ 5,000 unit BID [facility] Administration Vancomycin HCl 1,250 mg/ 250 mls @ 125 mls/hr 09/15/16 10:00 09/15/16 10:48 Dextrose IVPB 125 mls/hr DAILY@1000 [facility] Administration Protocol Insulin Detemir 10 units 09/13/16 22:00 09/15/16 09:50 Levemir Vial SQ 10 units BID [facility] Administration Levetiracetam 500 mg 09/14/16 10:00 09/15/16 09:44 Keppra Xr - PO 500 mg DAILY [facility] Administration Oxycodone HCl 5 mg 09/15/16 11:40 Roxicodone - PO Q6H PRN PAIN Sevelamer Carbonate 800 mg 09/13/16 17:30 09/15/16 12:31 Renvela - PO Not Given TIDCM [facility] Tramadol HCl 50 mg 09/14/16 10:24 09/15/16 02:29 Ultram - PO 50 mg Q6H PRN Administration PAIN Current Active Problems RUBY (acute kidney injury) (Acute) CHF exacerbation (Acute) Cellulitis and abscess of foot (Acute) Diabetic foot infection (Acute) Elevated troponin I measurement (Acute) Glaucoma (Acute) Hyperglycemia (Acute) Hyponatremia (Acute) 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 complication (Acute) Wound infection (Acute) Diabetic foot ulcer (Chronic) Diabetic neuropathy (Chronic) Osteomyelitis (Chronic)
[2016-09-15] MEDS: DEXTROSE 5%-0.45% SALINE 1,000 ML IV SCH (18:02)
[2016-09-15] MEDS: ATORVASTATIN CA 20 MG TABLET (FP) PO SCH (22:15)
[2016-09-16] MEDS: ALBUTEROL SO4 0.083% IH SOL 2.5 MG/3 ML VIAL.NEB. NEB SCH ×4 (06:13→18:10)
[2016-09-16 07:46] LABS: BASOPHIL 0.6 % (0-2.0); EOSINOPHIL 0.9 % (0-4.5); MCH 27.8 pg (25.7-33.7); MCHC 32.5 g/dl (32.0-35.9); MEAN CELL VOLUME 85.6 fl (80-96); MEAN PLT VOLUME 7.6 fl (7.5-11.1); NEUTROPHILS 74.4 % (42.8-82.8); PLATELET COUNT 183 K/MM3 (134-434); RDW 16.1 % (11.9-15.9); WHITE BLOOD COUNT 5.9 K/mm3 (4.0-10.0)
[2016-09-16] MEDS ORDERED: INSULIN DETEMIR 100 UNITS/ML MDV SQ SCH (07:56)
[2016-09-16] MEDS: INSULIN DETEMIR 100 UNITS/ML MDV SQ SCH ×2 (08:03→18:56)
[2016-09-16 08:15] LABS: ALBUMIN 1.6 g/dl (3.4-5.0); CALCIUM 7.6 mg/dL (8.5-10.1); MAGNESIUM 2.2 mg/dL (1.8-2.4)
[2016-09-16 08:18] LABS: BILIRUBIN,TOTAL 0.6 mg/dL (0.2-1.0); COCKROFT - GAULT 51.68; CREATININE 1.9 mg/dL (0.7-1.3); PHOSPHOROUS 4.5 mg/dL (2.5-4.9); TOT PROT 4.9 g/dl (6.4-8.2)
[2016-09-16] MEDS: SEVELAMER CARBONATE 800 MG TAB (FP) PO SCH ×3 (09:20→17:37)
--- NOTE | 2016-09-16 09:52 | PN ---
Progress Note, Physician History of Present Illness: seen and examined today in nad. states he is feeling a little bit better today. no overnight events. - Current Medication List Current Medications: Active Medications Acetaminophen (Tylenol -) 650 mg PO Q4H PRN PRN Reason: FEVER OR PAIN Last Admin: 09/14/16 10:14 Dose: 650 mg Albuterol Sulfate (Ventolin 0.083% Nebulizer Soln -) 1 amp NEB QIDR [facility] Last Admin: 09/16/16 06:13 Dose: Not Given Ascorbic Acid (Vitamin C -) 500 mg PO DAILY [facility] Last Admin: 09/15/16 09:45 Dose: 500 mg Atorvastatin Calcium (Lipitor -) 20 mg PO HS [facility] Last Admin: 09/15/16 22:15 Dose: Not Given Calcitriol (Rocaltrol -) 0.25 mcg PO DAILY [facility] Last Admin: 09/15/16 09:44 Dose: 0.25 mcg Carvedilol (Coreg -) 12.5 mg PO BID [facility] Last Admin: 09/15/16 22:09 Dose: 12.5 mg Citalopram Hydrobromide (Celexa -) 20 mg PO DAILY [facility] Last Admin: 09/15/16 09:43 Dose: 20 mg Clopidogrel Bisulfate (Plavix -) 75 mg PO DAILY [facility] Last Admin: 09/15/16 09:44 Dose: 75 mg Collagenase (Santyl -) 1 applic TP DAILY [facility] Last Admin: 09/15/16 13:30 Dose: 1 applic Divalproex Sodium (Depakote -) 250 mg PO BID [facility] Last Admin: 09/15/16 22:09 Dose: 250 mg Heparin Sodium (Porcine) (Heparin -) 5,000 unit SQ BID [facility] Last Admin: 09/15/16 22:13 Dose: Not Given Vancomycin HCl 1,250 mg/ (Dextrose) 250 mls @ 125 mls/hr IVPB DAILY@1000 [facility] PRN Reason: Protocol Last Admin: 09/15/16 10:48 Dose: 125 mls/hr Dextrose/Sodium Chloride (D5-1/2ns -) 1,000 mls @ 50 mls/hr IV ASDIR [facility] Last Admin: 09/15/16 18:02 Dose: 50 mls/hr Insulin Detemir (Levemir Vial) 10 units SQ BIDI [facility] Last Admin: 09/16/16 08:03 Dose: Not Given Levetiracetam (Keppra Xr -) 500 mg PO DAILY [facility] Last Admin: 09/15/16 09:44 Dose: 500 mg Oxycodone HCl (Roxicodone -) 5 mg PO Q6H PRN PRN Reason: PAIN Sevelamer Carbonate (Renvela -) 800 mg PO TIDCM [facility] Last Admin: 09/16/16 09:20 Dose: Not Given Tramadol HCl (Ultram -) 50 mg PO Q6H PRN PRN Reason: PAIN Last Admin: 09/15/16 02:29 Dose: 50 mg - Objective Vital Signs: Vital Signs Temperature 98.1 F 09/16/16 06:00 Pulse Rate 62 09/16/16 06:00 Respiratory Rate 18 09/16/16 06:00 Blood Pressure 135/83 09/16/16 06:00 O2 Sat by Pulse Oximetry (%) 98 09/14/16 21:00 Constitutional: Yes: No Distress, Calm, Thin Eyes: Yes: Conjunctiva Clear, EOM Intact, PERRL HENT: Yes: Atraumatic, Normocephalic Neck: Yes: Supple, Trachea Midline Cardiovascular: Yes: Regular Rate and Rhythm, S1, S2. No: Bradycardia, Tachycardia, Pulse Irregular, Bruit, JVD, Gallop, Murmur, Rub, S3, S4, Varicosities Respiratory: Yes: Regular. No: Rales, Rhonchi, Wheezes Gastrointestinal: Yes: Normal Bowel Sounds, Soft. No: Distention, Tenderness Musculoskeletal: Yes: WNL Extremities: Yes: WNL Edema: Yes Peripheral Pulses WNL: No Neurological: Yes: Alert, Oriented Psychiatric: Yes: Alert, Oriented Labs: CBC, BMP 09/16/16 06:25 09/16/16 06:25 INR, PTT INR 1.36 (0.82-1.09) H 09/14/16 06:00 - ....Imaging Chest X-ray: Report Reviewed, Image Reviewed EKG: Report Reviewed, Image Reviewed Other: Report Reviewed, Image Reviewed Assessment/Plan Necrotic foot wound Sepsis CAD s/p CABG Severe LV dysfunction w/ chronic systolic CHF Chronic anemia History GI bleed/guaiac + stool CKD Hyponatremia REC: ID and surgical/podiatry evaluations appreciated Receiving Abx Planned for debridement vs amputation, currently refusing amputation as per podiatry evaluation Pt euvolemic/intravascularly depleted from CHF standpoint, does not currently require diuresis Renal evaluation appreciated Continue home Coreg and Lipitor Plavix was held for procedure, would resume prciila after procedure
[2016-09-16] MEDS ORDERED: PT OWN MED DRAWER 7, Y5N ONE ×2 (10:43→21:13)
[2016-09-16] MEDS: HEPARIN NA (PORCINE) 5,000 UNITS/ML 1ML VIAL SQ SCH ×2 (10:51→21:20)
[2016-09-16] MEDS: CITALOPRAM HYDROBROMIDE 20 MG TABLET (FP) PO SCH (10:51)
[2016-09-16] MEDS: ASCORBIC ACID 500 MG TABLET (FP) PO SCH (10:51)
[2016-09-16] MEDS: CARVEDILOL 12.5 MG TABLET (FP) PO SCH (10:51)
[2016-09-16] MEDS: DIVALPROEX SODIUM 250 MG TABLET E.C. (FP) PO SCH ×2 (10:51→21:20)
[2016-09-16] MEDS: CALCITRIOL 0.25 MCG CAPSULE (FP) PO SCH (10:52)
[2016-09-16] MEDS: levETIRAcetam XR 500 MG TAB PO SCH (10:52)
[2016-09-16] MEDS: COLLAGENASE CLOSTRIDIUM HIST. 30 GRAMS TUBE TP SCH (10:52)
[2016-09-16] MEDS: VANCOMYCIN 1,250 MG in DEXTROSE 5%-WATER - 250 ML IVPB SCH (11:08)
[2016-09-16] MEDS ORDERED: INSULIN (NOVOLOG) ASPART 100 UNITS/ML 10ML VIAL ONE (11:12)
--- NOTE | 2016-09-16 11:34 | PN ---
Progress Note (short form) - Note Progress Note: agree that he would benefit from amputation (BKA) but he is refusing unwillling to even discuss it Vital Signs Period Temp Pulse Resp BP Sys/Mejia Pulse Ox Last 24 Hr 97.1 F-98.1 F 56-71 18-20 81-135/51-83 cor-rrr lungs clear abd soft,nt ext draining left foot CBC, BMP 09/16/16 06:25 09/16/16 06:25 Microbiology 09/13/16 10:52 Blood - Peripheral Venous Blood Culture - Preliminary Enterococcus Faecalis 09/13/16 10:44 Foot - Left Lateral Wound Culture - Final Staphylococcus Capitis Enterococcus Faecalis Diphtheroid/Corynebacterium 09/15/16 10:35 Blood - Peripheral Venous Blood Culture - Preliminary NO GROWTH OBTAINED AFTER 24 HOURS, INCUBATION TO CONTINUE FOR 4 DAYS. 09/15/16 10:30 Blood - Peripheral Venous Blood Culture - Preliminary NO GROWTH OBTAINED AFTER 24 HOURS, INCUBATION TO CONTINUE FOR 4 DAYS. 09/13/16 10:52 Blood - Peripheral Venous Blood Culture - Preliminary Group D Strep Or Entero Coccus a/p diabetic foot infection with bacteremia enterococcal bacteremia diabetes CAD CKD poor adherence with meds/medication followup switch to amp/ceftriaxone d/c vancomycin echo for debridement on Friday refusing BKA Problem List - Problems (1) Diabetic foot infection Code(s): E11.69 - TYPE 2 DIABETES MELLITUS WITH OTHER SPECIFIED COMPLICATION L08.9 - LOCAL INFECTION OF THE SKIN AND SUBCUTANEOUS TISSUE, UNSP (2) Hyperglycemia Code(s): R73.9 - HYPERGLYCEMIA, UNSPECIFIED (3) Hyponatremia Code(s): E87.1 - HYPO-OSMOLALITY AND HYPONATREMIA (4) RUBY (acute kidney injury) Code(s): N17.9 - ACUTE KIDNEY FAILURE, UNSPECIFIED
[2016-09-16] MEDS ORDERED: cefTRIAXone 2 GM/100 ML BAG (PRE-DOCKED) IVPB SCH (11:45)
--- NOTE | 2016-09-16 12:04 | PN ---
Progress Note, Physician Chief Complaint: patient refusing meds he said he needs to think about what needs to be done with his foot he will discuss with Dr coreen perez want to see his foot - Current Medication List Current Medications: Active Medications Acetaminophen (Tylenol -) 650 mg PO Q4H PRN PRN Reason: FEVER OR PAIN Last Admin: 09/14/16 10:14 Dose: 650 mg Albuterol Sulfate (Ventolin 0.083% Nebulizer Soln -) 1 amp NEB QIDR [facility] Last Admin: 09/16/16 06:13 Dose: Not Given Ascorbic Acid (Vitamin C -) 500 mg PO DAILY [facility] Last Admin: 09/16/16 10:51 Dose: 500 mg Atorvastatin Calcium (Lipitor -) 20 mg PO HS [facility] Last Admin: 09/15/16 22:15 Dose: Not Given Calcitriol (Rocaltrol -) 0.25 mcg PO DAILY [facility] Last Admin: 09/16/16 10:52 Dose: Not Given Carvedilol (Coreg -) 12.5 mg PO BID [facility] Last Admin: 09/16/16 10:51 Dose: Not Given Citalopram Hydrobromide (Celexa -) 20 mg PO DAILY [facility] Last Admin: 09/16/16 10:51 Dose: 20 mg Clopidogrel Bisulfate (Plavix -) 75 mg PO DAILY [facility] Last Admin: 09/15/16 09:44 Dose: 75 mg Collagenase (Santyl -) 1 applic TP DAILY [facility] Last Admin: 09/16/16 10:52 Dose: 1 applic Divalproex Sodium (Depakote -) 250 mg PO BID [facility] Last Admin: 09/16/16 10:51 Dose: Not Given Heparin Sodium (Porcine) (Heparin -) 5,000 unit SQ BID [facility] Last Admin: 09/16/16 10:51 Dose: Not Given Dextrose/Sodium Chloride (D5-1/2ns -) 1,000 mls @ 50 mls/hr IV ASDIR [facility] Last Admin: 09/15/16 18:02 Dose: 50 mls/hr Ampicillin Sodium (Ampicillin 2 Gm Ivpb (Pre-Docked)) 100 mls @ 200 mls/hr IVPB Q6H-IV [facility] Ceftriaxone Sodium 2 gm/ (Sodium Chloride) 100 mls @ 200 mls/hr IVPB BID [facility] Insulin Detemir (Levemir Vial) 10 units SQ BIDI [facility] Last Admin: 04/17/17 08:03 Dose: Not Given Levetiracetam (Keppra Xr -) 500 mg PO DAILY [facility] Last Admin: 09/16/16 10:52 Dose: Not Given Oxycodone HCl (Roxicodone -) 5 mg PO Q6H PRN PRN Reason: PAIN Sevelamer Carbonate (Renvela -) 800 mg PO TIDCM [facility] Last Admin: 09/16/16 11:29 Dose: Not Given Tramadol HCl (Ultram -) 50 mg PO Q6H PRN PRN Reason: PAIN Last Admin: 09/15/16 02:29 Dose: 50 mg - Objective Vital Signs: Vital Signs Temperature 98.1 F 09/16/16 06:00 Pulse Rate 62 09/16/16 06:00 Respiratory Rate 18 09/16/16 06:00 Blood Pressure 135/83 09/16/16 06:00 O2 Sat by Pulse Oximetry (%) 98 09/14/16 21:00 Cardiovascular: Yes: Regular Rate and Rhythm, S1, S2 Respiratory: Yes: CTA Bilaterally Gastrointestinal: Yes: Normal Bowel Sounds, Soft Edema: Yes Wound/Incision: Yes: Draining (left foot) Neurological: Yes: Alert, Oriented Labs: CBC, BMP 09/16/16 06:25 09/16/16 06:25 INR, PTT INR 1.36 (0.82-1.09) H 09/14/16 06:00 Problem List - Problems (1) Diabetic foot infection Assessment/Plan: debridement on friday not ready to agree for LACHO angela to follow on plavix abx per ID Code(s): E11.69 - TYPE 2 DIABETES MELLITUS WITH OTHER SPECIFIED COMPLICATION L08.9 - LOCAL INFECTION OF THE SKIN AND SUBCUTANEOUS TISSUE, UNSP (2) RUBY (acute kidney injury) Assessment/Plan: slightly better bun/cr Code(s): N17.9 - ACUTE KIDNEY FAILURE, UNSPECIFIED (3) Edema Assessment/Plan: duplex negative Code(s): R60.9 - EDEMA, UNSPECIFIED (4) CHF (congestive heart failure) Assessment/Plan: BP running low side decrease dose of coreg Code(s): I50.9 - HEART FAILURE, UNSPECIFIED Qualifiers: (5) 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 complication Assessment/Plan: sliding scale bgm levemir Code(s): E11.29 - TYPE 2 DIABETES MELLITUS W OTH DIABETIC KIDNEY COMPLICATION
[2016-09-16] MEDS ORDERED: AMPICILLIN SODIUM 2 GM VIAL ONE ×3 (12:28→20:32)
[2016-09-16] MEDS ORDERED: SODIUM CHLORIDE 100 ML IVPB ONE ×3 (12:29→20:33)
[2016-09-16] MEDS: AMPICILLIN - 100 ML IVPB SCH ×3 (12:36→21:05)
[2016-09-16] MEDS: CEFTRIAXONE 2 GM in SODIUM CHLORIDE 100 ML IVPB SCH ×2 (14:13→23:34)
--- NOTE | 2016-09-16 16:48 | PN ---
Progress Note, Physician Chief Complaint: Seen in his bed. Wound care being done. No specific complaints. Good urine output noted. - Current Medication List Current Medications: Active Medications Acetaminophen (Tylenol -) 650 mg PO Q4H PRN PRN Reason: FEVER OR PAIN Last Admin: 09/14/16 10:14 Dose: 650 mg Albuterol Sulfate (Ventolin 0.083% Nebulizer Soln -) 1 amp NEB QIDR [facility] Last Admin: 09/16/16 11:20 Dose: Not Given Ascorbic Acid (Vitamin C -) 500 mg PO DAILY [facility] Last Admin: 09/16/16 10:51 Dose: 500 mg Atorvastatin Calcium (Lipitor -) 20 mg PO HS [facility] Last Admin: 09/15/16 22:15 Dose: Not Given Calcitriol (Rocaltrol -) 0.25 mcg PO DAILY [facility] Last Admin: 09/16/16 10:52 Dose: Not Given Carvedilol (Coreg -) 6.25 mg PO BID [facility] Citalopram Hydrobromide (Celexa -) 20 mg PO DAILY [facility] Last Admin: 09/16/16 10:51 Dose: 20 mg Clopidogrel Bisulfate (Plavix -) 75 mg PO DAILY [facility] Last Admin: 09/15/16 09:44 Dose: 75 mg Collagenase (Santyl -) 1 applic TP DAILY [facility] Last Admin: 09/16/16 10:52 Dose: 1 applic Divalproex Sodium (Depakote -) 250 mg PO BID [facility] Last Admin: 09/16/16 10:51 Dose: Not Given Heparin Sodium (Porcine) (Heparin -) 5,000 unit SQ BID [facility] Last Admin: 09/16/16 10:51 Dose: Not Given Dextrose/Sodium Chloride (D5-1/2ns -) 1,000 mls @ 50 mls/hr IV ASDIR [facility] Last Admin: 09/15/16 18:02 Dose: 50 mls/hr Ampicillin Sodium (Ampicillin 2 Gm Ivpb (Pre-Docked)) 100 mls @ 200 mls/hr IVPB Q6H-IV [facility] Last Admin: 09/16/16 15:52 Dose: 200 mls/hr Ceftriaxone Sodium 2 gm/ (Sodium Chloride) 100 mls @ 200 mls/hr IVPB BID [facility] Last Admin: 09/16/16 14:13 Dose: 200 mls/hr Insulin Detemir (Levemir Vial) 10 units SQ BIDI [facility] Last Admin: 09/16/16 08:03 Dose: Not Given Levetiracetam (Keppra Xr -) 500 mg PO DAILY [facility] Last Admin: 09/16/16 10:52 Dose: Not Given Oxycodone HCl (Roxicodone -) 5 mg PO Q6H PRN PRN Reason: PAIN Sevelamer Carbonate (Renvela -) 800 mg PO TIDCM [facility] Last Admin: 09/16/16 11:29 Dose: Not Given Tramadol HCl (Ultram -) 50 mg PO Q6H PRN PRN Reason: PAIN Last Admin: 09/15/16 02:29 Dose: 50 mg - Objective Vital Signs: Vital Signs Temperature 98.1 F 09/16/16 06:00 Pulse Rate 70 09/16/16 15:47 Respiratory Rate 20 09/16/16 15:47 Blood Pressure 91/52 09/16/16 15:47 O2 Sat by Pulse Oximetry (%) 98 09/14/16 21:00 Constitutional: Yes: No Distress, Anxious Cardiovascular: Yes: S1, S2 Respiratory: Yes: CTA Bilaterally, Diminished Gastrointestinal: Yes: Normal Bowel Sounds, Soft Extremities: Yes: Amputation, Other (open wound) Labs: CBC, BMP 09/16/16 06:25 09/16/16 06:25 INR, PTT INR 1.36 (0.82-1.09) H 09/14/16 06:00 Problem List - Problems (1) RUBY (acute kidney injury) Code(s): N17.9 - ACUTE KIDNEY FAILURE, UNSPECIFIED (2) CHF exacerbation Code(s): I50.9 - HEART FAILURE, UNSPECIFIED Qualifiers: Congestive heart failure type: unspecified congestive heart failure type Qualified Code(s): I50.9 - Heart failure, unspecified (3) Cellulitis and abscess of foot Code(s): L03.119 - CELLULITIS OF UNSPECIFIED PART OF LIMB L02.619 - CUTANEOUS ABSCESS OF UNSPECIFIED FOOT (4) Diabetic foot infection Code(s): E11.69 - TYPE 2 DIABETES MELLITUS WITH OTHER SPECIFIED COMPLICATION L08.9 - LOCAL INFECTION OF THE SKIN AND SUBCUTANEOUS TISSUE, UNSP (5) Edema Code(s): R60.9 - EDEMA, UNSPECIFIED (6) 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 complication Code(s): E11.29 - TYPE 2 DIABETES MELLITUS W OTH DIABETIC KIDNEY COMPLICATION (7) Diabetic foot ulcer Code(s): E11.621 - TYPE 2 DIABETES MELLITUS WITH FOOT ULCER L97.509 - NON-PRESSURE CHRONIC ULCER OTH PRT UNSP FOOT W UNSP SEVERITY Qualifiers: Diabetic foot ulcer location: midfoot Diabetes mellitus type: other specified (including KEREN) Laterality: left Non-pressure ulcer stage: unspecified non-pressure ulcer stage Qualified Code(s): E13.621 - Other specified diabetes mellitus with foot ulcer; L97.409 - Non-pressure chronic ulcer of unspecified heel and midfoot with unspecified severity (8) Diabetic neuropathy Code(s): E11.40 - TYPE 2 DIABETES MELLITUS WITH DIABETIC NEUROPATHY, UNSP Qualifiers: Diabetes mellitus type: other specified (including KEREN) Diabetes mellitus complication detail: diabetic polyneuropathy Qualified Code(s): E13.42 - Other specified diabetes mellitus with diabetic polyneuropathy (9) Acute kidney failure Code(s): N17.9 - ACUTE KIDNEY FAILURE, UNSPECIFIED (10) Chronic kidney disease (CKD) stage G3a/A2, moderately decreased glomerular filtration rate (GFR) between 45-59 mL/min/1.73 square meter and albuminuria creatinine ratio between 30-299 mg/g Code(s): N18.3 - CHRONIC KIDNEY DISEASE, STAGE 3 (MODERATE) Assessment/Plan The patient's renal functions are fairly stable. Concur with the current management IV abx to continue Will monitor the renal functions with you.
--- NOTE | 2016-09-16 17:22 | PN ---
Progress Note (short form) - Note Progress Note: Vascular Surgery Spoke to pt at length. Spoke about doing a bka. Pt agrees. Explained to pt that in 6-8 weeks time he would have a prosthesis and would be able to get his life back. Pt agrees to do echo. Please initiate cardiac clearance. Pt is on plavix. So will plan for . Layo Aguillon DO
--- NOTE | 2016-09-16 17:35 | PN ---
Progress Note (short form) - Note Progress Note: PODIATRY NOTE Patient seen and examined bedside resting comfortably in NAD D/W patient benefits of BKA, especially since foot/Ankle not salvageable Patients questions answered to his satisfaction and he gave his verbal consent to the procedure on by [facility] Continue local wound care until BKA Vital Signs Period Temp Pulse Resp BP Sys/Mejia Pulse Ox Last 24 Hr 97.1 F-98.1 F 56-71 18-20 81-135/51-83 Laboratory Last Values WBC 5.9 K/mm3 (4.0-10.0) 09/16/16 06:25 RBC 3.00 M/mm3 (4.00-5.60) L 09/16/16 06:25 Hgb 8.3 GM/dL (11.7-16.9) L 09/16/16 06:25 Hct 25.6 % (35.4-49) L 09/16/16 06:25 MCV 85.6 fl (80-96) 09/16/16 06:25 MCHC 32.5 g/dl (32.0-35.9) 09/16/16 06:25 RDW 16.1 % (11.9-15.9) H 09/16/16 06:25 Plt Count 183 K/MM3 (134-434) D 09/16/16 06:25 MPV 7.6 fl (7.5-11.1) 09/16/16 06:25 Neutrophils % 74.4 % (42.8-82.8) 09/16/16 06:25 Lymphocytes % 16.5 % (8-40) D 09/16/16 06:25 Monocytes % 7.6 % (3.8-10.2) 09/16/16 06:25 Eosinophils % 0.9 % (0-4.5) 09/16/16 06:25 Basophils % 0.6 % (0-2.0) 09/16/16 06:25 ESR 37 mm/hr (0-20) H 09/16/16 06:25 INR 1.36 (0.82-1.09) H 09/14/16 06:00 PTT (Actin FS) 34.5 SECONDS (26.9-34.4) H D 09/14/16 06:00 Sodium 132 mmol/L (136-145) L 09/16/16 06:25 Potassium 4.1 mmol/L (3.5-5.1) 09/16/16 06:25 Chloride 98 mmol/L (98-107) 09/16/16 06:25 Carbon Dioxide 21 mmol/L (21-32) 09/16/16 06:25 Anion Gap 13 (8-16) 09/16/16 06:25 BUN 27 mg/dL (7-18) H 09/16/16 06:25 Creatinine 1.9 mg/dL (0.7-1.3) H 09/16/16 06:25 Creat Clearance w eGFR 35.98 (>60) 09/16/16 06:25 POC Glucometer 96 UNITS (()) 09/16/16 06:28 Random Glucose 77 mg/dL (74-106) 09/16/16 06:25 Calcium 7.6 mg/dL (8.5-10.1) L 09/16/16 06:25 Phosphorus 4.5 mg/dL (2.5-4.9) 09/16/16 06:25 Magnesium 2.2 mg/dL (1.8-2.4) 09/16/16 06:25 Total Bilirubin 0.6 mg/dL (0.2-1.0) D 09/16/16 06:25 AST 13 U/L (15-37) L 09/16/16 06:25 ALT 10 U/L (12-78) L 09/16/16 06:25 Alkaline Phosphatase 132 U/L (45-117) H 09/16/16 06:25 C-Reactive Protein 13.3 MG/DL (0.00-0.3) H D 09/15/16 06:00 B-Natriuretic Peptide 60769.57 pg/ml (5-125) H 09/14/16 06:00 Total Protein 4.9 g/dl (6.4-8.2) L 09/16/16 06:25 Albumin 1.6 g/dl (3.4-5.0) L 09/16/16 06:25 Urine Color Yellow 09/15/16 13:25 Urine Appearance Slcloudy 09/15/16 13:25 Urine pH 5.0 (5.0-8.0) 09/15/16 13:25 Ur Specific [place] 1.023 (1.001-1.035) 09/15/16 13:25 Urine Protein 1+ (NEGATIVE) H 09/15/16 13:25 Urine Glucose (UA) 1+ (NEGATIVE) H 09/15/16 13:25 Urine Ketones Negative (NEGATIVE) 09/15/16 13:25 Urine Blood 2+ (NEGATIVE) H 09/15/16 13:25 Urine Nitrite Negative (NEGATIVE) 09/15/16 13:25 Urine Bilirubin Negative (NEGATIVE) 09/15/16 13:25 Urine Urobilinogen Negative E.U./dl (0.2-1.0) 09/15/16 13:25 Ur Leukocyte Esterase Negative (NEGATIVE) 09/15/16 13:25 Urine RBC 11 /hpf (0-3) 09/15/16 13:25 Urine WBC None /hpf (3-5) 09/15/16 13:25 Hyaline Casts 3 /lpf 09/13/16 18:15 Urine Mucus Rare 09/15/16 13:25 U Random Total Protein 128 mg/dl (5-11.9) H 09/13/16 18:15 Ur Random Sodium 13 MMOL/L 09/13/16 18:15 Ur Random Urea Nitrogn 444 mg/dL 09/13/16 18:15 Urine Creatinine 98.9 mg/dL 09/13/16 18:15 Vancomycin Trough 7.267 ug/ml (5.0-10.0) D 09/14/16 06:00 Random Vancomycin 13.379 ug/ml 09/15/16 06:00 Blood Type O POSITIVE 09/13/16 11:40 Antibody Screen Negative 09/13/16 11:40 Crossmatch See Detail 09/13/16 11:40 A/P Infected Left foot with bone exposed D/C Santyl switch to NS wet to dry until BKA Patient to have BKA on Please re-consult as needed
[2016-09-16] MEDS: DEXTROSE 5%-0.45% SALINE 1,000 ML IV SCH (18:56)
[2016-09-16] MEDS: traMADol HCL 50 MG TABLET PO PRN (19:02)
[2016-09-16] MEDS: ACETAMINOPHEN 325 MG TABLET (FP) PO PRN (19:02)
[2016-09-16] MEDS: CARVEDILOL 6.25 MG TABLET (FP) PO SCH (21:19)
[2016-09-16] MEDS: ATORVASTATIN CA 20 MG TABLET (FP) PO SCH (21:20)
[2016-09-16] MEDS: oxyCODONE HCL 5 MG TABLET PO PRN (21:29)
[2016-09-17] MEDS: ALBUTEROL SO4 0.083% IH SOL 2.5 MG/3 ML VIAL.NEB. NEB SCH ×5 (00:05→23:13)
--- NOTE | 2016-09-17 00:28 | CONSULT ---
Consult Consult Specialty:: endocrine Referred by:: jasper lofton Reason for Consultation:: iddm uncontrolled - History of Present Illness Chief Complaint: nausea poor apetite History of Present Illness: 61-year-old male, with a significant past medical history of iddm,HTN, HLD, CAD s/p CABG, ICM with chronic systolic CHF and multiple prior exacerbations, PAD with amputations, CKD, and anemia, who presents to the ED with fluid and blood drainage from left foot wound ,poor apetite,difficulty controlling blood sugars, low at time nausea,and vomiting - History Source History Provided By: Patient - Past Medical History 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 Home Medications - Allergies Allergies/Adverse Reactions: Allergies Allergy/AdvReac Type Severity Reaction Status Date / Time banana Allergy Verified 09/13/16 09:29 No Known Drug Allergies Allergy Verified 09/13/16 09:29 - Home Medications Home Medications: Ambulatory Orders Acetaminophen 325 mg PO Q6H PRN 06/22/16 Ascorbate Calcium [Vitamin C] 500 mg PO DAILY 06/22/16 Calcitriol [Calcitriol -] 0.25 mcg PO DAILY 06/22/16 Citalopram Hydrobromide [Citalopram HBr] 20 mg PO DAILY 06/22/16 Clopidogrel Bisulfate [Clopidogrel] 75 mg PO DAILY 06/22/16 Divalproex [Depakote -] 250 mg PO BID 06/22/16 Insulin Glargine,Hum.rec.anlog [Lantus (10mL VIAL) -] 6 units SQ HS 06/22/16 Insulin Lispro [Humalog] 2 unit SQ TID 06/22/16 Levetiracetam [Keppra Xr -] 500 mg PO DAILY 06/22/16 Sevelamer HCl [Renagel] 800 mg PO TID 06/22/16 Atorvastatin Ca [Lipitor] 20 mg PO HS #30 tablet 06/29/16 Carvedilol [Coreg -] 12.5 mg PO BID tablet 07/17/16 Collagenase Clostridium Hist. [Santyl -] 1 applic TP DAILY tube 07/17/16 Furosemide [Lasix -] 80 mg PO BID@0600,1400 tablet 07/17/16 Isosorbide Mononitrate [Imdur -] 15 mg PO DAILY #30 tab.sr.24h 07/17/16 Family Disease History - Family Disease History Family Disease History: Diabetes: Sister Review of Systems - Review of Systems Constitutional: reports: Lethargy, Unintentional Wgt. Loss, Weakness Eyes: reports: Blurred Vision HENT: reports: No Symptoms Neck: reports: No Symptoms Cardiovascular: reports: Shortness of Breath Respiratory: reports: Exercise Intolerance, SOB, SOB on Exertion Gastrointestinal: reports: Nausea, Vomiting Genitourinary: reports: Frequency Musculoskeletal: reports: Joint Swelling, Muscle Pain, Muscle Cramps, Muscle Weakness Integumentary: reports: Erythema, Pruritis, Rash, Wound Endocrine: reports: Unexplained Weight Loss Physical Exam Vital Signs: Vital Signs Temperature 98.1 F 09/16/16 06:00 Pulse Rate 70 09/16/16 15:47 Respiratory Rate 20 09/16/16 15:47 Blood Pressure 91/52 09/16/16 15:47 O2 Sat by Pulse Oximetry (%) 99 09/16/16 09:00 Constitutional: Yes: Anxious Eyes: Yes: EOM Intact HENT: Yes: Normocephalic Neck: Yes: Trachea Midline Cardiovascular: Yes: Regular Rate and Rhythm Respiratory: Yes: CTA Bilaterally Gastrointestinal: Yes: Normal Bowel Sounds, Hypoactive Bowel Sounds ...Rectal Exam: Yes: Deferred Breast(s): Yes: WNL Musculoskeletal: Yes: Muscle Weakness Extremities: Yes: Amputation Edema: Yes Integumentary: Yes: Venous Stasis Changes Wound/Incision: Yes: Dressing Dry and Intact Labs: CBC, BMP 09/16/16 06:25 09/16/16 06:25 Assessment/Plan Current Active Problems RUBY (acute kidney injury) (Acute) CHF exacerbation (Acute) Cellulitis and abscess of foot (Acute) Diabetic foot infection (Acute) Edema (Acute) Elevated troponin I measurement (Acute) Enterococcal bacteremia (Acute) Glaucoma (Acute) Hyponatremia (Acute) 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 complication (Acute) Wound infection (Acute) Diabetic foot ulcer (Chronic) Diabetic neuropathy (Chronic) Osteomyelitis (Chronic) iddm uncontrolled hypoglyemia poor appetite Abnormal Lab Results 09/16/16 09/16/16 09/16/16 06:25 06:25 06:25 RBC 3.00 L Hgb 8.3 L Hct 25.6 L RDW 16.1 H ESR 37 H Sodium 132 L BUN 27 H Creatinine 1.9 H Calcium 7.6 L AST 13 L ALT 10 L Alkaline Phosphatase 132 H Total Protein 4.9 L Albumin 1.6 L plan: bgm qid novolog coverage Current Medications Generic Name Dose Route Start Last Admin Trade Name Freq PRN Reason Stop Dose Admin Acetaminophen 650 mg 09/13/16 13:39 09/16/16 19:02 Tylenol - PO 650 mg Q4H PRN Administration FEVER OR PAIN Albuterol Sulfate 1 amp 09/13/16 18:00 09/17/16 00:05 Ventolin 0.083% Nebulizer Soln - NEB Not Given QIDR [facility] Ascorbic Acid 500 mg 09/14/16 10:00 09/16/16 10:51 Vitamin C - PO 500 mg DAILY [facility] Administration Atorvastatin Calcium 20 mg 09/13/16 22:00 09/16/16 21:20 Lipitor - PO 20 mg HS [facility] Administration Calcitriol 0.25 mcg 09/14/16 10:00 09/16/16 10:52 Rocaltrol - PO Not Given DAILY [facility] Carvedilol 6.25 mg 09/16/16 12:05 09/16/16 21:19 Coreg - PO 6.25 mg BID [facility] Administration Citalopram Hydrobromide 20 mg 09/14/16 10:00 09/16/16 10:51 Celexa - PO 20 mg DAILY [facility] Administration Clopidogrel Bisulfate 75 mg 09/14/16 10:00 09/15/16 09:44 Plavix - PO 75 mg DAILY [facility] Administration Divalproex Sodium 250 mg 09/13/16 22:00 09/16/16 21:20 Depakote - PO 250 mg BID [facility] Administration Heparin Sodium (Porcine) 5,000 unit 09/13/16 22:00 09/16/16 21:20 Heparin - SQ Not Given BID [facility] Dextrose/Sodium Chloride 1,000 mls @ 50 mls/hr 09/15/16 18:00 09/16/16 18:56 D5-1/2ns - IV 50 mls/hr ASDIR [facility] Administration Ampicillin Sodium 100 mls @ 200 mls/hr 09/16/16 12:00 09/16/16 21:05 Ampicillin 2 Gm Ivpb (Pre-Docked) IVPB 200 mls/hr Q6H-IV [facility] Administration Ceftriaxone Sodium 2 gm/ 100 mls @ 200 mls/hr 09/16/16 12:00 09/16/16 14:13 Sodium Chloride IVPB 200 mls/hr BID [facility] Administration Insulin Detemir 10 units 09/16/16 08:00 09/16/16 18:56 Levemir Vial SQ 10 units BIDI [facility] Administration Levetiracetam 500 mg 09/14/16 10:00 09/16/16 10:52 Keppra Xr - PO Not Given DAILY [facility] Oxycodone HCl 5 mg 09/15/16 11:40 09/16/16 21:29 Roxicodone - PO 5 mg Q6H PRN Administration PAIN Sevelamer Carbonate 800 mg 09/13/16 17:30 09/16/16 17:37 Renvela - PO Not Given TIDCM [facility] Tramadol HCl 50 mg 09/14/16 10:24 09/15/16 02:29 Ultram - PO 50 mg Q6H PRN Administration PAIN ck hb a1c ck tsh
[2016-09-17] MEDS: AMPICILLIN - 100 ML IVPB SCH ×4 (02:34→21:00)
[2016-09-17] MEDS ORDERED: AMPICILLIN SODIUM 2 GM VIAL ONE ×3 (02:37→15:28)
[2016-09-17] MEDS ORDERED: SODIUM CHLORIDE 100 ML IVPB ONE ×3 (02:37→15:29)
[2016-09-17] MEDS: INSULIN SLIDING SCALE (NOVOLOG) 1 VIAL SQ SCH ×4 (06:47→22:00)
[2016-09-17] MEDS: INSULIN DETEMIR 100 UNITS/ML MDV SQ SCH ×2 (06:48→17:53)
[2016-09-17] MEDS ORDERED: PT OWN MED DRAWER 7, Y5N ONE ×2 (07:01→09:38)
[2016-09-17] MEDS ORDERED: INSULIN (NOVOLOG) ASPART 100 UNITS/ML 10ML VIAL ONE (07:07)
[2016-09-17 08:18] LABS: CALCIUM 7.8 mg/dL (8.5-10.1)
[2016-09-17 08:19] LABS: COCKROFT - GAULT 49.1
[2016-09-17] MEDS: SEVELAMER CARBONATE 800 MG TAB (FP) PO SCH ×3 (08:27→17:53)
[2016-09-17] MEDS: CITALOPRAM HYDROBROMIDE 20 MG TABLET (FP) PO SCH (09:42)
[2016-09-17] MEDS: CARVEDILOL 6.25 MG TABLET (FP) PO SCH ×2 (09:43→22:09)
[2016-09-17] MEDS: DIVALPROEX SODIUM 250 MG TABLET E.C. (FP) PO SCH ×2 (09:43→22:00)
[2016-09-17] MEDS: levETIRAcetam XR 500 MG TAB PO SCH (09:44)
[2016-09-17] MEDS: ASCORBIC ACID 500 MG TABLET (FP) PO SCH (09:44)
[2016-09-17] MEDS: CEFTRIAXONE 2 GM in SODIUM CHLORIDE 100 ML IVPB SCH ×2 (09:44→22:43)
[2016-09-17] MEDS: HEPARIN NA (PORCINE) 5,000 UNITS/ML 1ML VIAL SQ SCH ×3 (09:46→22:00)
[2016-09-17] MEDS: CALCITRIOL 0.25 MCG CAPSULE (FP) PO SCH (09:47)
--- NOTE | 2016-09-17 10:07 | PN ---
Progress Note, Physician Chief Complaint: denies chest pain or SOB - Current Medication List Current Medications: Active Medications Acetaminophen (Tylenol -) 650 mg PO Q4H PRN PRN Reason: FEVER OR PAIN Last Admin: 09/16/16 19:02 Dose: 650 mg Albuterol Sulfate (Ventolin 0.083% Nebulizer Soln -) 1 amp NEB QIDR [facility] Last Admin: 09/17/16 06:30 Dose: 1 amp Ascorbic Acid (Vitamin C -) 500 mg PO DAILY [facility] Last Admin: 09/17/16 09:44 Dose: 500 mg Atorvastatin Calcium (Lipitor -) 20 mg PO HS [facility] Last Admin: 09/16/16 21:20 Dose: 20 mg Calcitriol (Rocaltrol -) 0.25 mcg PO DAILY [facility] Last Admin: 09/17/16 09:47 Dose: 0.25 mcg Carvedilol (Coreg -) 6.25 mg PO BID [facility] Last Admin: 09/17/16 09:43 Dose: 6.25 mg Citalopram Hydrobromide (Celexa -) 20 mg PO DAILY [facility] Last Admin: 09/17/16 09:42 Dose: 20 mg Clopidogrel Bisulfate (Plavix -) 75 mg PO DAILY [facility] Last Admin: 09/15/16 09:44 Dose: 75 mg Divalproex Sodium (Depakote -) 250 mg PO BID [facility] Last Admin: 09/17/16 09:43 Dose: 250 mg Heparin Sodium (Porcine) (Heparin -) 5,000 unit SQ BID [facility] Last Admin: 09/17/16 09:46 Dose: 5,000 unit Dextrose/Sodium Chloride (D5-1/2ns -) 1,000 mls @ 50 mls/hr IV ASDIR [facility] Last Admin: 09/16/16 18:56 Dose: 50 mls/hr Ampicillin Sodium (Ampicillin 2 Gm Ivpb (Pre-Docked)) 100 mls @ 200 mls/hr IVPB Q6H-IV [facility] Last Admin: 09/17/16 08:28 Dose: 200 mls/hr Ceftriaxone Sodium 2 gm/ (Sodium Chloride) 100 mls @ 200 mls/hr IVPB BID [facility] Last Admin: 09/17/16 09:44 Dose: 200 mls/hr Insulin Aspart (Novolog Vial Sliding Scale -) 1 vial SQ ACHS [facility] PRN Reason: Protocol Last Admin: 09/17/16 06:47 Dose: Not Given Insulin Detemir (Levemir Vial) 10 units SQ BIDI [facility] Last Admin: 09/17/16 06:48 Dose: Not Given Levetiracetam (Keppra Xr -) 500 mg PO DAILY [facility] Last Admin: 09/17/16 09:44 Dose: 500 mg Oxycodone HCl (Roxicodone -) 5 mg PO Q6H PRN PRN Reason: PAIN Last Admin: 09/16/16 21:29 Dose: 5 mg Sevelamer Carbonate (Renvela -) 800 mg PO TIDCM [facility] Last Admin: 09/17/16 08:27 Dose: Not Given Tramadol HCl (Ultram -) 50 mg PO Q6H PRN PRN Reason: PAIN Last Admin: 09/15/16 02:29 Dose: 50 mg - Objective Vital Signs: Vital Signs Temperature 97.7 F 09/17/16 07:14 Pulse Rate 68 09/17/16 07:14 Respiratory Rate 20 09/17/16 07:14 Blood Pressure 96/55 09/17/16 07:14 O2 Sat by Pulse Oximetry (%) 99 09/16/16 21:00 Constitutional: Yes: Calm Eyes: Yes: Conjunctiva Clear Cardiovascular: Yes: Regular Rate and Rhythm Respiratory: Yes: CTA Bilaterally, Other (slightly decreased breath sounds at bases) Gastrointestinal: Yes: Soft Edema: No Neurological: Yes: Alert, Oriented Labs: CBC, BMP 09/16/16 06:25 09/17/16 06:30 INR, PTT INR 1.36 (0.82-1.09) H 09/14/16 06:00 Microbiology 09/15/16 10:35 Blood - Peripheral Venous Blood Culture - Preliminary NO GROWTH OBTAINED AFTER 24 HOURS, INCUBATION TO CONTINUE FOR 4 DAYS. 09/15/16 10:30 Blood - Peripheral Venous Blood Culture - Preliminary NO GROWTH OBTAINED AFTER 24 HOURS, INCUBATION TO CONTINUE FOR 4 DAYS. Laboratory Tests 09/16/16 09/17/16 06:25 06:30 WBC 5.9 Hgb 8.3 L Hct 25.6 L Plt Count 183 D Sodium 133 L Potassium 3.9 BUN 26 H Creatinine 2.0 H Calcium 7.8 L Assessment/Plan Necrotic foot wound Sepsis CAD s/p CABG Severe LV dysfunction w/ chronic systolic CHF Chronic anemia History GI bleed/guaiac + stool CKD Hyponatremia REC: ID and surgical/podiatry evaluations in progress Receiving Abx Pt euvolemic/intravascularly depleted from CHF standpoint, does not currently require diuresis Continue home Coreg and Lipitor Plavix was held for procedure, would resume when feasible after procedure
--- NOTE | 2016-09-17 10:59 | PN ---
Progress Note, Physician Chief Complaint: patient refused dressing change spoke to patient he is aware of plan for for BKA plavix is on hold - Current Medication List Current Medications: Active Medications Acetaminophen (Tylenol -) 650 mg PO Q4H PRN PRN Reason: FEVER OR PAIN Last Admin: 09/16/16 19:02 Dose: 650 mg Albuterol Sulfate (Ventolin 0.083% Nebulizer Soln -) 1 amp NEB QIDR [facility] Last Admin: 09/17/16 06:30 Dose: 1 amp Ascorbic Acid (Vitamin C -) 500 mg PO DAILY [facility] Last Admin: 09/17/16 09:44 Dose: 500 mg Atorvastatin Calcium (Lipitor -) 20 mg PO HS [facility] Last Admin: 09/16/16 21:20 Dose: 20 mg Calcitriol (Rocaltrol -) 0.25 mcg PO DAILY [facility] Last Admin: 09/17/16 09:47 Dose: 0.25 mcg Carvedilol (Coreg -) 6.25 mg PO BID [facility] Last Admin: 09/17/16 09:43 Dose: 6.25 mg Citalopram Hydrobromide (Celexa -) 20 mg PO DAILY [facility] Last Admin: 09/17/16 09:42 Dose: 20 mg Clopidogrel Bisulfate (Plavix -) 75 mg PO DAILY [facility] Last Admin: 09/15/16 09:44 Dose: 75 mg Divalproex Sodium (Depakote -) 250 mg PO BID [facility] Last Admin: 09/17/16 09:43 Dose: 250 mg Heparin Sodium (Porcine) (Heparin -) 5,000 unit SQ BID [facility] Last Admin: 09/17/16 10:12 Dose: Not Given Dextrose/Sodium Chloride (D5-1/2ns -) 1,000 mls @ 50 mls/hr IV ASDIR [facility] Last Admin: 09/16/16 18:56 Dose: 50 mls/hr Ampicillin Sodium (Ampicillin 2 Gm Ivpb (Pre-Docked)) 100 mls @ 200 mls/hr IVPB Q6H-IV [facility] Last Admin: 09/17/16 08:28 Dose: 200 mls/hr Ceftriaxone Sodium 2 gm/ (Sodium Chloride) 100 mls @ 200 mls/hr IVPB BID [facility] Last Admin: 09/17/16 09:44 Dose: 200 mls/hr Insulin Aspart (Novolog Vial Sliding Scale -) 1 vial SQ ACHS [facility] PRN Reason: Protocol Last Admin: 09/17/16 06:47 Dose: Not Given Insulin Detemir (Levemir Vial) 10 units SQ BIDI [facility] Last Admin: 09/17/16 06:48 Dose: Not Given Levetiracetam (Keppra Xr -) 500 mg PO DAILY [facility] Last Admin: 09/17/16 09:44 Dose: 500 mg Oxycodone HCl (Roxicodone -) 5 mg PO Q6H PRN PRN Reason: PAIN Last Admin: 09/16/16 21:29 Dose: 5 mg Sevelamer Carbonate (Renvela -) 800 mg PO TIDCM [facility] Last Admin: 09/17/16 08:27 Dose: Not Given - Objective Vital Signs: Vital Signs Temperature 97.7 F 09/17/16 07:14 Pulse Rate 68 09/17/16 07:14 Respiratory Rate 20 09/17/16 07:14 Blood Pressure 96/55 09/17/16 07:14 O2 Sat by Pulse Oximetry (%) 99 09/16/16 21:00 Constitutional: Yes: Calm HENT: Yes: Normocephalic Neck: Yes: Trachea Midline Cardiovascular: Yes: Regular Rate and Rhythm, S1, S2 Respiratory: Yes: CTA Bilaterally, Diminished (at bases) Gastrointestinal: Yes: Normal Bowel Sounds, Soft Edema: Yes Wound/Incision: Yes: Draining (left foot) Neurological: Yes: Alert, Oriented Labs: CBC, BMP 09/16/16 06:25 09/17/16 06:30 INR, PTT INR 1.36 (0.82-1.09) H 09/14/16 06:00 Problem List - Problems (1) Diabetic foot infection Assessment/Plan: patient agreed to BKA for BKA on thrsday by vascular NPO friday night hold plavix Code(s): E11.69 - TYPE 2 DIABETES MELLITUS WITH OTHER SPECIFIED COMPLICATION L08.9 - LOCAL INFECTION OF THE SKIN AND SUBCUTANEOUS TISSUE, UNSP (2) RUBY (acute kidney injury) Assessment/Plan: slightly better bun/cr Code(s): N17.9 - ACUTE KIDNEY FAILURE, UNSPECIFIED (3) Edema Assessment/Plan: duplex negative Code(s): R60.9 - EDEMA, UNSPECIFIED (4) CHF (congestive heart failure) Assessment/Plan: BP running low side decrease dose of coreg Code(s): I50.9 - HEART FAILURE, UNSPECIFIED Qualifiers: (5) 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 complication Assessment/Plan: sliding scale bgm levemir Code(s): E11.29 - TYPE 2 DIABETES MELLITUS W OTH DIABETIC KIDNEY COMPLICATION Assessment/Plan plan for BKA on
--- NOTE | 2016-09-17 11:44 | PN ---
Progress Note (short form) - Note Progress Note: apparently has agreed to BKA later this week currently yelling and cursing refuses exam, refuses dressing change of foot Vital Signs Period Temp Pulse Resp BP Sys/Mejia Pulse Ox Last 24 Hr 97.7 F-97.8 F 60-71 18-20 91-128/52-62 99 Microbiology 09/15/16 10:35 Blood - Peripheral Venous Blood Culture - Preliminary NO GROWTH OBTAINED AFTER 48 HOURS, INCUBATION TO CONTINUE FOR 3 DAYS. 09/15/16 10:30 Blood - Peripheral Venous Blood Culture - Preliminary NO GROWTH OBTAINED AFTER 48 HOURS, INCUBATION TO CONTINUE FOR 3 DAYS. 09/13/16 10:52 Blood - Peripheral Venous Blood Culture - Final Enterococcus Faecalis 09/13/16 10:52 Blood - Peripheral Venous Blood Culture - Final Enterococcus Faecalis 09/13/16 10:44 Foot - Left Lateral Gram Stain - Final 09/13/16 10:44 Foot - Left Lateral Wound Culture - Final Staphylococcus Capitis Enterococcus Faecalis Diphtheroid/Corynebacterium a/p diabetic foot infection with bacteremia enterococcal bacteremia diabetes CAD CKD poor adherence with meds/medication followup switch to amp/ceftriaxone ECHO today for BKA later this week Problem List - Problems (1) Diabetic foot infection Code(s): E11.69 - TYPE 2 DIABETES MELLITUS WITH OTHER SPECIFIED COMPLICATION L08.9 - LOCAL INFECTION OF THE SKIN AND SUBCUTANEOUS TISSUE, UNSP (2) Hyperglycemia Code(s): R73.9 - HYPERGLYCEMIA, UNSPECIFIED (3) Hyponatremia Code(s): E87.1 - HYPO-OSMOLALITY AND HYPONATREMIA (4) RUBY (acute kidney injury) Code(s): N17.9 - ACUTE KIDNEY FAILURE, UNSPECIFIED
--- NOTE | 2016-09-17 12:06 | PN ---
Progress Note (short form) - Note Progress Note: Renal Follow up for CKD Pt seen and examined at the bedside pt very upset would not allow exam or answer questions on IVF Vital Signs Temperature 97.7 F 09/17/16 07:14 Pulse Rate 60 09/17/16 10:45 Respiratory Rate 18 09/17/16 10:45 Blood Pressure 128/56 09/17/16 10:45 O2 Sat by Pulse Oximetry (%) 99 09/16/16 21:00 did not allow physical exam CBC, BMP 09/16/16 06:25 09/17/16 06:30 Current Medications Acetaminophen (Tylenol -) 650 mg PO Q4H PRN PRN Reason: FEVER OR PAIN Last Admin: 09/16/16 19:02 Dose: 650 mg Albuterol Sulfate (Ventolin 0.083% Nebulizer Soln -) 1 amp NEB QIDR [facility] Last Admin: 09/17/16 06:30 Dose: 1 amp Ascorbic Acid (Vitamin C -) 500 mg PO DAILY [facility] Last Admin: 09/17/16 09:44 Dose: 500 mg Atorvastatin Calcium (Lipitor -) 20 mg PO HS [facility] Last Admin: 09/16/16 21:20 Dose: 20 mg Calcitriol (Rocaltrol -) 0.25 mcg PO DAILY [facility] Last Admin: 09/17/16 09:47 Dose: 0.25 mcg Carvedilol (Coreg -) 6.25 mg PO BID [facility] Last Admin: 09/17/16 09:43 Dose: 6.25 mg Citalopram Hydrobromide (Celexa -) 20 mg PO DAILY [facility] Last Admin: 09/17/16 09:42 Dose: 20 mg Clopidogrel Bisulfate (Plavix -) 75 mg PO DAILY [facility] Last Admin: 09/15/16 09:44 Dose: 75 mg Divalproex Sodium (Depakote -) 250 mg PO BID [facility] Last Admin: 09/17/16 09:43 Dose: 250 mg Heparin Sodium (Porcine) (Heparin -) 5,000 unit SQ BID [facility] Last Admin: 09/17/16 10:12 Dose: Not Given Dextrose/Sodium Chloride (D5-1/2ns -) 1,000 mls @ 50 mls/hr IV ASDIR [facility] Last Admin: 09/16/16 18:56 Dose: 50 mls/hr Ampicillin Sodium (Ampicillin 2 Gm Ivpb (Pre-Docked)) 100 mls @ 200 mls/hr IVPB Q6H-IV [facility] Last Admin: 09/17/16 08:28 Dose: 200 mls/hr Ceftriaxone Sodium 2 gm/ (Sodium Chloride) 100 mls @ 200 mls/hr IVPB BID [facility] Last Admin: 09/17/16 09:44 Dose: 200 mls/hr Insulin Aspart (Novolog Vial Sliding Scale -) 1 vial SQ ACHS [facility] PRN Reason: Protocol Last Admin: 09/17/16 06:47 Dose: Not Given Insulin Detemir (Levemir Vial) 10 units SQ BIDI [facility] Last Admin: 09/17/16 06:48 Dose: Not Given Lactobacillus Acidophilus (Bacid -) 1 tab PO DAILY [facility] Levetiracetam (Keppra Xr -) 500 mg PO DAILY [facility] Last Admin: 09/17/16 09:44 Dose: 500 mg Oxycodone HCl (Roxicodone -) 5 mg PO Q6H PRN PRN Reason: PAIN Last Admin: 09/16/16 21:29 Dose: 5 mg Sevelamer Carbonate (Renvela -) 800 mg PO TIDCM [facility] Last Admin: 09/17/16 08:27 Dose: Not Given A/P 61 year old Gentleman with PMhx of RUBY (ATN with peak Cr of 4.7), CKD, CAD, CHF , PVD, IDDM with LE wound and found to have Cr of 2.1 and Na of 126. #Hyponatremia (corrected Ca is 130) serum na stable continue isotonic saline #CKD Stage 3 essentially stable renal function Trend BUN/Cr no CRISTHIAN/ARB at this time #LE cellulitis/Wound infection/Sepsis on Ampacillin and Ceftriaxone IVF to keep MAP > 65 for BKA as per Vascular Daniel Cid DO
[2016-09-17] MEDS: DEXTROSE 5%-NORMAL SALINE 1,000 ML IV SCH (12:28)
[2016-09-17] MEDS: LACTOBACILLUS ACIDOPHILUS 1 EACH TAB (FP) PO SCH (12:30)
[2016-09-17] MEDS: oxyCODONE HCL 5 MG TABLET PO PRN (12:49)
--- NOTE | 2016-09-17 12:59 | EKG ---
Test Reason : Blood Pressure : / mmHG Vent. Rate : 094 BPM Atrial Rate : 094 BPM P-R Int : 182 ms QRS Dur : 114 ms QT Int : 400 ms P-R-T Axes : 057 -26 210 degrees QTc Int : 500 ms SINUS RHYTHM WITH FREQUENT PREMATURE VENTRICULAR COMPLEXES PROLONGED QT ABNORMAL ECG WHEN COMPARED WITH ECG OF 11-JUL-2016 08:40, NO SIGNIFICANT CHANGE WAS FOUND Confirmed by HAROLDO DAVIDSON, LORE ([id number] on 09/17/2016 12:58:40 PM Referred By: Confirmed By:LORE ZARCO MD
--- NOTE | 2016-09-17 15:55 | PN ---
Progress Note (short form) - Note Progress Note: Vascular Surgery Pt seen and examined For BKA on if cleared by cardilogy Will be on standby Layo Aguillon DO
[2016-09-17] MEDS ORDERED: INSULIN DETEMIR 100 UNITS/ML MDV SQ ONE (18:01)
[2016-09-17] MEDS: ATORVASTATIN CA 20 MG TABLET (FP) PO SCH (22:00)
[2016-09-18] MEDS: AMPICILLIN - 100 ML IVPB SCH (02:11)
[2016-09-18] MEDS: DEXTROSE 5%-NORMAL SALINE 1,000 ML IV SCH (03:32)
[2016-09-18] MEDS: ALBUTEROL SO4 0.083% IH SOL 2.5 MG/3 ML VIAL.NEB. NEB SCH ×3 (06:35→18:55)
[2016-09-18] MEDS: INSULIN SLIDING SCALE (NOVOLOG) 1 VIAL SQ SCH ×4 (06:53→22:55)
[2016-09-18] MEDS: INSULIN DETEMIR 100 UNITS/ML MDV SQ SCH ×2 (06:54→16:37)
[2016-09-18] MEDS ORDERED: INSULIN (NOVOLOG) ASPART 100 UNITS/ML 10ML VIAL ONE ×2 (07:34→17:14)
[2016-09-18] MEDS ORDERED: INSULIN DETEMIR 100 UNITS/ML MDV SQ ONE (07:35)
[2016-09-18] MEDS: SEVELAMER CARBONATE 800 MG TAB (FP) PO SCH ×3 (08:10→16:37)
--- NOTE | 2016-09-18 08:16 | PN ---
Progress Note (short form) - Note Progress Note: ID Source of infection clearly the foot and this going to be solved with amputation We are not dealing with endocarditis here Afebrile with repeat blood culture no growth Selected Entries 09/17/16 09/18/16 18:52 07:15 Temperature 98.2 F Pulse Rate 69 Respiratory 20 Rate Blood Pressure 107/54 Assessment Enterococcal bacteremia from foot source Polymicrobial foot wound Diabetic foot infection Plan ECHO Unasyn 1.5 grs q6h Amputation 14 days if IV therapy total Discussed Dr Gabriel Judd MD Problem List - Problems (1) Cellulitis and abscess of foot Code(s): L03.119 - CELLULITIS OF UNSPECIFIED PART OF LIMB L02.619 - CUTANEOUS ABSCESS OF UNSPECIFIED FOOT (2) Enterococcal bacteremia Code(s): R78.81 - BACTEREMIA
--- NOTE | 2016-09-18 08:25 | PN ---
Progress Note, Physician - Current Medication List Current Medications: Active Medications Acetaminophen (Tylenol -) 650 mg PO Q4H PRN PRN Reason: FEVER OR PAIN Last Admin: 09/16/16 19:02 Dose: 650 mg Albuterol Sulfate (Ventolin 0.083% Nebulizer Soln -) 1 amp NEB QIDR [facility] Last Admin: 09/18/16 06:35 Dose: Not Given Ascorbic Acid (Vitamin C -) 500 mg PO DAILY [facility] Last Admin: 09/17/16 09:44 Dose: 500 mg Atorvastatin Calcium (Lipitor -) 20 mg PO HS [facility] Last Admin: 09/17/16 22:00 Dose: Not Given Calcitriol (Rocaltrol -) 0.25 mcg PO DAILY [facility] Last Admin: 09/17/16 09:47 Dose: 0.25 mcg Carvedilol (Coreg -) 6.25 mg PO BID [facility] Last Admin: 09/17/16 22:09 Dose: Not Given Citalopram Hydrobromide (Celexa -) 20 mg PO DAILY [facility] Last Admin: 09/17/16 09:42 Dose: 20 mg Clopidogrel Bisulfate (Plavix -) 75 mg PO DAILY [facility] Last Admin: 09/15/16 09:44 Dose: 75 mg Divalproex Sodium (Depakote -) 250 mg PO BID [facility] Last Admin: 09/17/16 22:00 Dose: Not Given Heparin Sodium (Porcine) (Heparin -) 5,000 unit SQ BID [facility] Last Admin: 09/17/16 22:00 Dose: Not Given Dextrose/Sodium Chloride (D5-Ns -) 1,000 mls @ 75 mls/hr IV ASDIR [facility] Last Admin: 09/18/16 03:32 Dose: 75 mls/hr Ampicillin Sodium/Sulbactam (Sodium 1.5 gm/ Sodium Chloride) 100 mls @ 200 mls/ hr IVPB Q8H-IV [facility] Insulin Aspart (Novolog Vial Sliding Scale -) 1 vial SQ ACHS [facility] PRN Reason: Protocol Last Admin: 09/18/16 06:53 Dose: Not Given Insulin Detemir (Levemir Vial) 10 units SQ BIDI [facility] Last Admin: 09/18/16 06:54 Dose: Not Given Lactobacillus Acidophilus (Bacid -) 1 tab PO DAILY [facility] Last Admin: 09/17/16 12:30 Dose: 1 tab Levetiracetam (Keppra Xr -) 500 mg PO DAILY [facility] Last Admin: 09/17/16 09:44 Dose: 500 mg Oxycodone HCl (Roxicodone -) 5 mg PO Q6H PRN PRN Reason: PAIN Last Admin: 09/17/16 12:49 Dose: 5 mg Sevelamer Carbonate (Renvela -) 800 mg PO TIDCM [facility] Last Admin: 09/18/16 08:10 Dose: Not Given - Objective Vital Signs: Vital Signs Temperature 98.2 F 09/17/16 18:52 Pulse Rate 69 09/18/16 07:15 Respiratory Rate 20 09/18/16 07:15 Blood Pressure 107/54 09/18/16 07:15 O2 Sat by Pulse Oximetry (%) 99 09/16/16 21:00 Cardiovascular: Yes: S1, S2 Respiratory: Yes: Regular, CTA Bilaterally Gastrointestinal: Yes: Normal Bowel Sounds, Soft Wound/Incision: Yes: Dressing Dry and Intact Labs: CBC, BMP 09/16/16 06:25 INR, PTT INR 1.36 (0.82-1.09) H 09/14/16 06:00 Problem List - Problems (1) Diabetic foot infection Code(s): E11.69 - TYPE 2 DIABETES MELLITUS WITH OTHER SPECIFIED COMPLICATION L08.9 - LOCAL INFECTION OF THE SKIN AND SUBCUTANEOUS TISSUE, UNSP (2) RUBY (acute kidney injury) Code(s): N17.9 - ACUTE KIDNEY FAILURE, UNSPECIFIED (3) CHF exacerbation Code(s): I50.9 - HEART FAILURE, UNSPECIFIED Qualifiers: Congestive heart failure type: unspecified congestive heart failure type Qualified Code(s): I50.9 - Heart failure, unspecified (4) 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 complication Code(s): E11.29 - TYPE 2 DIABETES MELLITUS W OTH DIABETIC KIDNEY COMPLICATION (5) Edema Code(s): R60.9 - EDEMA, UNSPECIFIED Assessment/Plan - Problems (1) Diabetic foot infection Assessment/Plan: patient agreed to BKA for BKA on thrsday by vascular NPO friday night hold plavix Code(s): E11.69 - TYPE 2 DIABETES MELLITUS WITH OTHER SPECIFIED COMPLICATION L08.9 - LOCAL INFECTION OF THE SKIN AND SUBCUTANEOUS TISSUE, UNSP (2) RUBY (acute kidney injury) Assessment/Plan: slightly better bun/cr Code(s): N17.9 - ACUTE KIDNEY FAILURE, UNSPECIFIED (3) Edema Assessment/Plan: duplex negative Code(s): R60.9 - EDEMA, UNSPECIFIED (4) CHF (congestive heart failure) Assessment/Plan: BP running low side decrease dose of coreg Code(s): I50.9 - HEART FAILURE, UNSPECIFIED Qualifiers: (5) 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 complication Assessment/Plan: sliding scale bgm levemir Code(s): E11.29 - TYPE 2 DIABETES MELLITUS W OTH DIABETIC KIDNEY COMPLICATION Assessment/Plan plan for BKA on
[2016-09-18 08:40] LABS: ALBUMIN 1.6 g/dl (3.4-5.0); BILIRUBIN,TOTAL 0.3 mg/dL (0.2-1.0); CALCIUM 7.2 mg/dL (8.5-10.1); COCKROFT - GAULT 54.55; CREATININE 1.8 mg/dL (0.7-1.3); MAGNESIUM 2.1 mg/dL (1.8-2.4); PHOSPHOROUS 4.2 mg/dL (2.5-4.9); TOT PROT 5.2 g/dl (6.4-8.2)
[2016-09-18 08:50] LABS: THYROID STIMULATING HORMONE 1.65 uIU/ml (0.358-3.74)
--- NOTE | 2016-09-18 09:07 | PN ---
Progress Note, Physician Chief Complaint: sleeping comfortably - Current Medication List Current Medications: Active Medications Acetaminophen (Tylenol -) 650 mg PO Q4H PRN PRN Reason: FEVER OR PAIN Last Admin: 09/16/16 19:02 Dose: 650 mg Albuterol Sulfate (Ventolin 0.083% Nebulizer Soln -) 1 amp NEB QIDR [facility] Last Admin: 09/18/16 06:35 Dose: Not Given Ascorbic Acid (Vitamin C -) 500 mg PO DAILY [facility] Last Admin: 09/17/16 09:44 Dose: 500 mg Atorvastatin Calcium (Lipitor -) 20 mg PO HS [facility] Last Admin: 09/17/16 22:00 Dose: Not Given Calcitriol (Rocaltrol -) 0.25 mcg PO DAILY [facility] Last Admin: 09/17/16 09:47 Dose: 0.25 mcg Carvedilol (Coreg -) 6.25 mg PO BID [facility] Last Admin: 09/17/16 22:09 Dose: Not Given Citalopram Hydrobromide (Celexa -) 20 mg PO DAILY [facility] Last Admin: 09/17/16 09:42 Dose: 20 mg Clopidogrel Bisulfate (Plavix -) 75 mg PO DAILY [facility] Last Admin: 09/15/16 09:44 Dose: 75 mg Divalproex Sodium (Depakote -) 250 mg PO BID [facility] Last Admin: 09/17/16 22:00 Dose: Not Given Heparin Sodium (Porcine) (Heparin -) 5,000 unit SQ BID [facility] Last Admin: 09/17/16 22:00 Dose: Not Given Dextrose/Sodium Chloride (D5-Ns -) 1,000 mls @ 75 mls/hr IV ASDIR [facility] Last Admin: 09/18/16 03:32 Dose: 75 mls/hr Ampicillin Sodium/Sulbactam Sodium (Unasyn 1.5 Gm (Pre-Docked)) 100 mls @ 200 mls/hr IVPB Q8H-IV [facility] Insulin Aspart (Novolog Vial Sliding Scale -) 1 vial SQ ACHS [facility] PRN Reason: Protocol Last Admin: 09/18/16 06:53 Dose: Not Given Insulin Detemir (Levemir Vial) 10 units SQ BIDI [facility] Last Admin: 09/18/16 06:54 Dose: Not Given Lactobacillus Acidophilus (Bacid -) 1 tab PO DAILY [facility] Last Admin: 09/17/16 12:30 Dose: 1 tab Levetiracetam (Keppra Xr -) 500 mg PO DAILY [facility] Last Admin: 09/17/16 09:44 Dose: 500 mg Oxycodone HCl (Roxicodone -) 5 mg PO Q6H PRN PRN Reason: PAIN Last Admin: 09/17/16 12:49 Dose: 5 mg Sevelamer Carbonate (Renvela -) 800 mg PO TIDCM [facility] Last Admin: 09/18/16 08:10 Dose: Not Given - Objective Vital Signs: Vital Signs Temperature 98.2 F 09/17/16 18:52 Pulse Rate 69 09/18/16 07:15 Respiratory Rate 20 09/18/16 07:15 Blood Pressure 107/54 09/18/16 07:15 O2 Sat by Pulse Oximetry (%) 99 09/16/16 21:00 Constitutional: Yes: Calm Cardiovascular: Yes: Regular Rate and Rhythm Respiratory: Yes: CTA Bilaterally Gastrointestinal: Yes: Soft Edema: Yes Edema: LLE: 1+, RLE: 1+ Labs: CBC, BMP 09/16/16 06:25 09/18/16 06:20 INR, PTT INR 1.36 (0.82-1.09) H 09/14/16 06:00 Microbiology 09/13/16 10:52 Blood - Peripheral Venous Blood Culture - Final Enterococcus Faecalis 09/13/16 10:52 Blood - Peripheral Venous Blood Culture - Final Enterococcus Faecalis 09/15/16 10:35 Blood - Peripheral Venous Blood Culture - Preliminary NO GROWTH OBTAINED AFTER 48 HOURS, INCUBATION TO CONTINUE FOR 3 DAYS. 09/15/16 10:30 Blood - Peripheral Venous Blood Culture - Preliminary NO GROWTH OBTAINED AFTER 48 HOURS, INCUBATION TO CONTINUE FOR 3 DAYS. Laboratory Tests 09/18/16 06:20 Potassium 4.2 Creatinine 1.8 H Assessment/Plan Assessment/Plan Necrotic foot wound Sepsis CAD s/p CABG Severe LV dysfunction w/ chronic systolic CHF Chronic anemia History GI bleed/guaiac + stool CKD Hyponatremia REC: No cardiac contraindications to amputation. Hold Plavix.
[2016-09-18] MEDS: HEPARIN NA (PORCINE) 5,000 UNITS/ML 1ML VIAL SQ SCH ×2 (10:10→23:31)
[2016-09-18] MEDS ORDERED: PT OWN MED DRAWER 7, Y5N ONE ×3 (10:15→22:24)
[2016-09-18] MEDS: ASCORBIC ACID 500 MG TABLET (FP) PO SCH (10:20)
[2016-09-18] MEDS: AMPICILLIN NA/SULBACTAM NA 100 ML IVPB SCH ×2 (10:20→17:23)
[2016-09-18] MEDS: CARVEDILOL 6.25 MG TABLET (FP) PO SCH ×3 (10:20→23:30)
[2016-09-18] MEDS: DIVALPROEX SODIUM 250 MG TABLET E.C. (FP) PO SCH ×3 (10:21→23:30)
[2016-09-18] MEDS: CITALOPRAM HYDROBROMIDE 20 MG TABLET (FP) PO SCH (10:21)
[2016-09-18] MEDS: CALCITRIOL 0.25 MCG CAPSULE (FP) PO SCH (10:21)
[2016-09-18] MEDS: levETIRAcetam XR 500 MG TAB PO SCH (10:21)
[2016-09-18] MEDS: LACTOBACILLUS ACIDOPHILUS 1 EACH TAB (FP) PO SCH (10:21)
--- NOTE | 2016-09-18 10:30 | PN ---
Progress Note (short form) - Note Progress Note: Renal Follow up for CKD Pt seen and examined at the bedside no acute complaints today on D5NS denies any sob or chest pain dressing on left foot/heel soaked through/bloody Vital Signs Temperature 98.2 F 09/17/16 18:52 Pulse Rate 69 09/18/16 07:15 Respiratory Rate 20 09/18/16 07:15 Blood Pressure 107/54 09/18/16 07:15 O2 Sat by Pulse Oximetry (%) 99 09/16/16 21:00 Intake & Output 09/15/16 09/16/16 09/17/16 09/18/16 23:59 23:59 23:59 23:59 Intake Total 1480 1690 2368 1983 Output Total 300 1350 400 Balance 2328 163 4751 1583 Weight 199 lb 2 oz 202 lb 7 oz Gen: NAD CVS: RRR Lungs: No rales, wheeze (anterior exam) Abd: soft NT Et: 1+ edema in LE, b/l feet in dressing CBC, BMP 09/16/16 06:25 09/18/16 06:20 Laboratory Tests 09/17/16 09/18/16 09/18/16 06:30 06:20 06:30 Hemoglobin A1c % 10.5 H D Calcium 7.8 L 7.2 L Magnesium 2.1 Albumin 1.6 L Current Medications Acetaminophen (Tylenol -) 650 mg PO Q4H PRN PRN Reason: FEVER OR PAIN Last Admin: 09/16/16 19:02 Dose: 650 mg Albuterol Sulfate (Ventolin 0.083% Nebulizer Soln -) 1 amp NEB QIDR [facility] Last Admin: 09/18/16 06:35 Dose: Not Given Ascorbic Acid (Vitamin C -) 500 mg PO DAILY [facility] Last Admin: 09/18/16 10:20 Dose: 500 mg Atorvastatin Calcium (Lipitor -) 20 mg PO HS [facility] Last Admin: 09/17/16 22:00 Dose: Not Given Calcitriol (Rocaltrol -) 0.25 mcg PO DAILY [facility] Last Admin: 09/18/16 10:21 Dose: Not Given Carvedilol (Coreg -) 6.25 mg PO BID [facility] Last Admin: 09/18/16 10:20 Dose: 6.25 mg Citalopram Hydrobromide (Celexa -) 20 mg PO DAILY [facility] Last Admin: 09/18/16 10:21 Dose: Not Given Clopidogrel Bisulfate (Plavix -) 75 mg PO DAILY [facility] Last Admin: 09/15/16 09:44 Dose: 75 mg Divalproex Sodium (Depakote -) 250 mg PO BID [facility] Last Admin: 09/18/16 10:21 Dose: Not Given Heparin Sodium (Porcine) (Heparin -) 5,000 unit SQ BID [facility] Last Admin: 09/18/16 10:10 Dose: Not Given Dextrose/Sodium Chloride (D5-Ns -) 1,000 mls @ 75 mls/hr IV ASDIR [facility] Last Admin: 09/18/16 03:32 Dose: 75 mls/hr Ampicillin Sodium/Sulbactam Sodium (Unasyn 1.5 Gm (Pre-Docked)) 100 mls @ 200 mls/hr IVPB Q8H-IV [facility] Last Admin: 09/18/16 10:20 Dose: 200 mls/hr Insulin Aspart (Novolog Vial Sliding Scale -) 1 vial SQ ACHS [facility] PRN Reason: Protocol Last Admin: 09/18/16 06:53 Dose: Not Given Insulin Detemir (Levemir Vial) 10 units SQ BIDI [facility] Last Admin: 09/18/16 06:54 Dose: Not Given Lactobacillus Acidophilus (Bacid -) 1 tab PO DAILY [facility] Last Admin: 09/18/16 10:21 Dose: Not Given Levetiracetam (Keppra Xr -) 500 mg PO DAILY [facility] Last Admin: 09/18/16 10:21 Dose: Not Given Oxycodone HCl (Roxicodone -) 5 mg PO Q6H PRN PRN Reason: PAIN Last Admin: 09/17/16 12:49 Dose: 5 mg Sevelamer Carbonate (Renvela -) 800 mg PO TIDCM [facility] Last Admin: 09/18/16 08:10 Dose: Not Given A/P 61 year old Gentleman with PMhx of RUBY (ATN with peak Cr of 4.7), CKD, CAD, CHF , PVD, IDDM with LE wound and found to have Cr of 2.1 and Na of 126. #Hyponatremia serum Na now improved to within normal limits on isotonic saline with D5 continue fluid for now as pt has poor oral intake #CKD Stage 3 Renal function stable Avoid NSAIDS, IV contrast trend BUN/Cr #LE cellulitis/Wound infection/Sepsis/Enterococcus Bactermia on Ampacillin and Ceftriaxone IVF to keep MAP > 65 for BKA tomorrow wound care Daniel Cid DO
[2016-09-18 13:39] LABS: BASOPHIL 1.2 % (0-2.0); EOSINOPHIL 1.1 % (0-4.5); MCH 28.7 pg (25.7-33.7); MCHC 32.9 g/dl (32.0-35.9); MEAN CELL VOLUME 87.2 fl (80-96); MEAN PLT VOLUME 7.2 fl (7.5-11.1); NEUTROPHILS 75.3 % (42.8-82.8); PLATELET COUNT 154 K/MM3 (134-434); RDW 16.4 % (11.9-15.9); WHITE BLOOD COUNT 4.1 K/mm3 (4.0-10.0)
--- NOTE | 2016-09-18 16:38 | PN ---
Progress Note (short form) - Note Progress Note: Vascular Surgery Pt seen and examined. For left bka suki. Will tranfuse 2 units of PRBC for surgery suki. NPO past midnite. Layo Aguillon DO
[2016-09-18] MEDS: ATORVASTATIN CA 20 MG TABLET (FP) PO SCH ×2 (23:30→23:31)
[2016-09-19] MEDS: AMPICILLIN NA/SULBACTAM NA 100 ML IVPB SCH ×3 (04:00→17:29)
[2016-09-19] MEDS: INSULIN DETEMIR 100 UNITS/ML MDV SQ SCH ×2 (07:38→17:34)
[2016-09-19] MEDS: INSULIN SLIDING SCALE (NOVOLOG) 1 VIAL SQ SCH ×3 (07:38→22:10)
--- NOTE | 2016-09-19 07:49 | PN ---
Progress Note, Physician History of Present Illness: BLEEDING FROM FOOT - Current Medication List Current Medications: Active Medications Acetaminophen (Tylenol -) 650 mg PO Q4H PRN PRN Reason: FEVER OR PAIN Last Admin: 09/16/16 19:02 Dose: 650 mg Ascorbic Acid (Vitamin C -) 500 mg PO DAILY [facility] Last Admin: 09/18/16 10:20 Dose: 500 mg Atorvastatin Calcium (Lipitor -) 20 mg PO HS [facility] Last Admin: 09/18/16 23:30 Dose: 20 mg Calcitriol (Rocaltrol -) 0.25 mcg PO DAILY [facility] Last Admin: 09/18/16 10:21 Dose: Not Given Carvedilol (Coreg -) 6.25 mg PO BID [facility] Last Admin: 09/18/16 23:30 Dose: 6.25 mg Citalopram Hydrobromide (Celexa -) 20 mg PO DAILY [facility] Last Admin: 09/18/16 10:21 Dose: Not Given Clopidogrel Bisulfate (Plavix -) 75 mg PO DAILY [facility] Last Admin: 09/15/16 09:44 Dose: 75 mg Divalproex Sodium (Depakote -) 250 mg PO BID [facility] Last Admin: 09/18/16 23:30 Dose: 250 mg Heparin Sodium (Porcine) (Heparin -) 5,000 unit SQ BID [facility] Last Admin: 09/18/16 23:31 Dose: Not Given Dextrose/Sodium Chloride (D5-Ns -) 1,000 mls @ 75 mls/hr IV ASDIR [facility] Last Admin: 09/18/16 03:32 Dose: 75 mls/hr Ampicillin Sodium/Sulbactam Sodium (Unasyn 1.5 Gm (Pre-Docked)) 100 mls @ 200 mls/hr IVPB Q8H-IV [facility] Last Admin: 09/19/16 04:00 Dose: 200 mls/hr Insulin Aspart (Novolog Vial Sliding Scale -) 1 vial SQ ACHS [facility] PRN Reason: Protocol Last Admin: 09/19/16 07:38 Dose: Not Given Insulin Detemir (Levemir Vial) 10 units SQ BIDI [facility] Last Admin: 09/19/16 07:38 Dose: Not Given Lactobacillus Acidophilus (Bacid -) 1 tab PO DAILY [facility] Last Admin: 09/18/16 10:21 Dose: Not Given Levetiracetam (Keppra Xr -) 500 mg PO DAILY [facility] Last Admin: 09/18/16 10:21 Dose: Not Given Sevelamer Carbonate (Renvela -) 800 mg PO TIDCM [facility] Last Admin: 09/18/16 16:37 Dose: Not Given - Objective Vital Signs: Vital Signs Temperature 97.6 F 09/19/16 07:32 Pulse Rate 80 09/19/16 07:32 Respiratory Rate 20 09/19/16 07:32 Blood Pressure 124/69 09/19/16 07:32 O2 Sat by Pulse Oximetry (%) 100 09/18/16 21:00 Cardiovascular: Yes: S1, S2 Respiratory: Yes: Regular, CTA Bilaterally Gastrointestinal: Yes: Normal Bowel Sounds, Soft Wound/Incision: Yes: Bleeding Labs: CBC, BMP 09/18/16 13:05 09/18/16 06:20 INR, PTT INR 1.36 (0.82-1.09) H 09/14/16 06:00 Problem List - Problems (1) Diabetic foot infection Code(s): E11.69 - TYPE 2 DIABETES MELLITUS WITH OTHER SPECIFIED COMPLICATION L08.9 - LOCAL INFECTION OF THE SKIN AND SUBCUTANEOUS TISSUE, UNSP (2) RUBY (acute kidney injury) Code(s): N17.9 - ACUTE KIDNEY FAILURE, UNSPECIFIED (3) CHF exacerbation Code(s): I50.9 - HEART FAILURE, UNSPECIFIED Qualifiers: Congestive heart failure type: unspecified congestive heart failure type Qualified Code(s): I50.9 - Heart failure, unspecified (4) 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 complication Code(s): E11.29 - TYPE 2 DIABETES MELLITUS W OTH DIABETIC KIDNEY COMPLICATION (5) Edema Code(s): R60.9 - EDEMA, UNSPECIFIED Assessment/Plan - Problems (1) Diabetic foot infection Assessment/Plan: patient agreed to BKA for BKA on Today by vascular NPO hold plavix Code(s): E11.69 - TYPE 2 DIABETES MELLITUS WITH OTHER SPECIFIED COMPLICATION L08.9 - LOCAL INFECTION OF THE SKIN AND SUBCUTANEOUS TISSUE, UNSP (2) RUBY (acute kidney injury) Assessment/Plan: slightly better bun/cr Code(s): N17.9 - ACUTE KIDNEY FAILURE, UNSPECIFIED (3) Anemia Assessment/Plan: s/p prbc cbc (4) CHF (congestive heart failure) Assessment/Plan: BP running low side decrease dose of coreg Code(s): I50.9 - HEART FAILURE, UNSPECIFIED Qualifiers: (5) 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 complication Assessment/Plan: sliding scale bgm levemir Code(s): E11.29 - TYPE 2 DIABETES MELLITUS W OTH DIABETIC KIDNEY COMPLICATION Assessment/Plan plan for BKA on
[2016-09-19 08:35] LABS: ALBUMIN 1.8 g/dl (3.4-5.0); BILIRUBIN,TOTAL 0.8 mg/dL (0.2-1.0); CALCIUM 7.6 mg/dL (8.5-10.1); COCKROFT - GAULT 54.55; CREATININE 1.8 mg/dL (0.7-1.3); MAGNESIUM 2.2 mg/dL (1.8-2.4); PHOSPHOROUS 3.7 mg/dL (2.5-4.9); TOT PROT 5.8 g/dl (6.4-8.2)
[2016-09-19 08:43] LABS: BASOPHIL 0.9 % (0-2.0); EOSINOPHIL 0.7 % (0-4.5); MCH 29.5 pg (25.7-33.7); MCHC 33.7 g/dl (32.0-35.9); MEAN CELL VOLUME 87.6 fl (80-96); MEAN PLT VOLUME 7.5 fl (7.5-11.1); NEUTROPHILS 78.6 % (42.8-82.8); PLATELET COUNT 225 K/MM3 (134-434); WHITE BLOOD COUNT 6.2 K/mm3 (4.0-10.0)
--- NOTE | 2016-09-19 09:00 | PN ---
Progress Note, Physician Chief Complaint: ID CHANTELL Cardoso Left foot obviously bleeding profusely into dressing Post blood transfusion - Current Medication List Current Medications: Active Medications Acetaminophen (Tylenol -) 650 mg PO Q4H PRN PRN Reason: FEVER OR PAIN Last Admin: 09/16/16 19:02 Dose: 650 mg Ascorbic Acid (Vitamin C -) 500 mg PO DAILY [facility] Last Admin: 09/18/16 10:20 Dose: 500 mg Atorvastatin Calcium (Lipitor -) 20 mg PO HS [facility] Last Admin: 09/18/16 23:30 Dose: 20 mg Calcitriol (Rocaltrol -) 0.25 mcg PO DAILY [facility] Last Admin: 09/18/16 10:21 Dose: Not Given Carvedilol (Coreg -) 6.25 mg PO BID [facility] Last Admin: 09/18/16 23:30 Dose: 6.25 mg Citalopram Hydrobromide (Celexa -) 20 mg PO DAILY [facility] Last Admin: 09/18/16 10:21 Dose: Not Given Clopidogrel Bisulfate (Plavix -) 75 mg PO DAILY [facility] Last Admin: 09/15/16 09:44 Dose: 75 mg Divalproex Sodium (Depakote -) 250 mg PO BID [facility] Last Admin: 09/18/16 23:30 Dose: 250 mg Heparin Sodium (Porcine) (Heparin -) 5,000 unit SQ BID [facility] Last Admin: 09/18/16 23:31 Dose: Not Given Dextrose/Sodium Chloride (D5-Ns -) 1,000 mls @ 75 mls/hr IV ASDIR [facility] Last Admin: 09/18/16 03:32 Dose: 75 mls/hr Ampicillin Sodium/Sulbactam Sodium (Unasyn 1.5 Gm (Pre-Docked)) 100 mls @ 200 mls/hr IVPB Q8H-IV [facility] Last Admin: 09/19/16 04:00 Dose: 200 mls/hr Insulin Aspart (Novolog Vial Sliding Scale -) 1 vial SQ ACHS [facility] PRN Reason: Protocol Last Admin: 09/19/16 07:38 Dose: Not Given Insulin Detemir (Levemir Vial) 10 units SQ BIDI [facility] Last Admin: 09/19/16 07:38 Dose: Not Given Lactobacillus Acidophilus (Bacid -) 1 tab PO DAILY [facility] Last Admin: 09/18/16 10:21 Dose: Not Given Levetiracetam (Keppra Xr -) 500 mg PO DAILY [facility] Last Admin: 09/18/16 10:21 Dose: Not Given Sevelamer Carbonate (Renvela -) 800 mg PO TIDCM [facility] Last Admin: 09/18/16 16:37 Dose: Not Given - Objective Vital Signs: Vital Signs Temperature 97.6 F 09/19/16 07:32 Pulse Rate 80 09/19/16 07:32 Respiratory Rate 20 09/19/16 07:32 Blood Pressure 124/69 09/19/16 07:32 O2 Sat by Pulse Oximetry (%) 100 09/18/16 21:00 Constitutional: Yes: Well Nourished, No Distress HENT: Yes: WNL, Atraumatic Neck: Yes: WNL, Supple Cardiovascular: Yes: Regular Rate and Rhythm, S1, S2. No: Murmur Respiratory: Yes: WNL, Regular, CTA Bilaterally Gastrointestinal: Yes: WNL, Normal Bowel Sounds, Soft. No: Tenderness, Epigastrium Extremities: Yes: Other (Left foot dressing saturated watih blood) Labs: CBC, BMP 09/19/16 07:00 INR, PTT INR 1.36 (0.82-1.09) H 09/14/16 06:00 Problem List - Problems (1) Cellulitis and abscess of foot Code(s): L03.119 - CELLULITIS OF UNSPECIFIED PART OF LIMB L02.619 - CUTANEOUS ABSCESS OF UNSPECIFIED FOOT (2) Enterococcal bacteremia Code(s): R78.81 - BACTEREMIA Assessment/Plan Microbiology 09/13/16 10:52 Blood - Peripheral Venous Blood Culture - Final Enterococcus Faecalis 09/13/16 10:52 Blood - Peripheral Venous Blood Culture - Final Enterococcus Faecalis 09/13/16 10:44 Foot - Left Lateral Gram Stain - Final 09/13/16 10:44 Foot - Left Lateral Wound Culture - Final Staphylococcus Capitis Enterococcus Faecalis Diphtheroid/Corynebacterium Laboratory Tests 09/18/16 09/19/16 09/19/16 13:05 07:00 07:00 WBC 4.1 D Pending Hgb Pending Hct Pending Plt Count 154 Creat Clearance w eGFR 38.30 Assessment Infection left foot Enterococcal bacteremia Severe anemia from blood loss Diabetes Plan Continue current antibiotic ECHO negative vegetation Awaiting surgery Binta DAVIDSON
[2016-09-19] MEDS: CARVEDILOL 6.25 MG TABLET (FP) PO SCH ×3 (10:08→22:04)
[2016-09-19] MEDS: SEVELAMER CARBONATE 800 MG TAB (FP) PO SCH ×2 (10:09→18:10)
[2016-09-19] MEDS: CITALOPRAM HYDROBROMIDE 20 MG TABLET (FP) PO SCH (10:10)
[2016-09-19] MEDS: ASCORBIC ACID 500 MG TABLET (FP) PO SCH (10:10)
[2016-09-19] MEDS: DIVALPROEX SODIUM 250 MG TABLET E.C. (FP) PO SCH ×2 (10:10→22:13)
[2016-09-19] MEDS: CALCITRIOL 0.25 MCG CAPSULE (FP) PO SCH (10:10)
[2016-09-19] MEDS: levETIRAcetam XR 500 MG TAB PO SCH (10:10)
[2016-09-19] MEDS: HEPARIN NA (PORCINE) 5,000 UNITS/ML 1ML VIAL SQ SCH ×2 (10:10→22:09)
[2016-09-19] MEDS: LACTOBACILLUS ACIDOPHILUS 1 EACH TAB (FP) PO SCH (10:10)
[2016-09-19] MEDS ORDERED: MIDAZOLAM HCL 2 MG/2 ML SINGLE DOSE VIAL ONE (11:51)
[2016-09-19] MEDS ORDERED: PROPOFOL 20 ML ONE (11:52)
[2016-09-19] MEDS ORDERED: LIDOCAINE HCL 2% (20ML MULTI-DOSE VIAL) NR ONE (11:52)
[2016-09-19] MEDS ORDERED: ceFAZolin SODIUM 1 GM VIAL IVPB ONE (12:00)
[2016-09-19] MEDS ORDERED: SUCCINYLCHOLINE CHLORIDE 200 MG/10 ML VIAL ONE (12:01)
[2016-09-19] MEDS ORDERED: ceFAZolin SODIUM 1 GM VIAL ONE (12:12)
--- NOTE | 2016-09-19 12:57 | PN ---
Progress Note (short form) - Note Progress Note: Renal Follow up for CKD Pt seen and examined at the bedside no acute complaints today awaiting OR for BKA Vital Signs Temperature 97.6 F 09/19/16 07:32 Pulse Rate 80 09/19/16 07:32 Respiratory Rate 20 09/19/16 07:32 Blood Pressure 124/69 09/19/16 07:32 O2 Sat by Pulse Oximetry (%) 100 09/18/16 21:00 Intake & Output 09/16/16 09/17/16 09/18/16 09/19/16 23:59 23:59 23:59 23:59 Intake Total 1690 2368 3583 850 Output Total 1350 700 Balance 340 2368 2883 850 Weight 202 lb 7 oz Gen: NAD CVS: RRR Lungs: No rales, wheeze (anterior exam) Abd: soft NT Et: 1+ edema in LE, b/l feet in dressing CBC, BMP 09/19/16 07:00 09/19/16 07:00 Current Medications Acetaminophen (Tylenol -) 650 mg PO Q4H PRN PRN Reason: FEVER OR PAIN Last Admin: 09/16/16 19:02 Dose: 650 mg Ascorbic Acid (Vitamin C -) 500 mg PO DAILY [facility] Last Admin: 09/19/16 10:10 Dose: Not Given Atorvastatin Calcium (Lipitor -) 20 mg PO HS [facility] Last Admin: 09/18/16 23:30 Dose: 20 mg Calcitriol (Rocaltrol -) 0.25 mcg PO DAILY [facility] Last Admin: 09/19/16 10:10 Dose: Not Given Carvedilol (Coreg -) 6.25 mg PO BID [facility] Last Admin: 09/19/16 10:10 Dose: Not Given Citalopram Hydrobromide (Celexa -) 20 mg PO DAILY [facility] Last Admin: 09/19/16 10:10 Dose: Not Given Clopidogrel Bisulfate (Plavix -) 75 mg PO DAILY [facility] Last Admin: 09/15/16 09:44 Dose: 75 mg Divalproex Sodium (Depakote -) 250 mg PO BID [facility] Last Admin: 09/19/16 10:10 Dose: Not Given Heparin Sodium (Porcine) (Heparin -) 5,000 unit SQ BID [facility] Last Admin: 09/19/16 10:10 Dose: Not Given Dextrose/Sodium Chloride (D5-Ns -) 1,000 mls @ 75 mls/hr IV ASDIR [facility] Last Admin: 09/18/16 03:32 Dose: 75 mls/hr Ampicillin Sodium/Sulbactam Sodium (Unasyn 1.5 Gm (Pre-Docked)) 100 mls @ 200 mls/hr IVPB Q8H-IV [facility] Last Admin: 09/19/16 10:08 Dose: 200 mls/hr Insulin Aspart (Novolog Vial Sliding Scale -) 1 vial SQ ACHS [facility] PRN Reason: Protocol Last Admin: 09/19/16 07:38 Dose: Not Given Insulin Detemir (Levemir Vial) 10 units SQ BIDI [facility] Last Admin: 09/19/16 07:38 Dose: Not Given Lactobacillus Acidophilus (Bacid -) 1 tab PO DAILY [facility] Last Admin: 09/19/16 10:10 Dose: Not Given Levetiracetam (Keppra Xr -) 500 mg PO DAILY [facility] Last Admin: 09/19/16 10:10 Dose: Not Given Sevelamer Carbonate (Renvela -) 800 mg PO TIDCM [facility] Last Admin: 09/19/16 10:09 Dose: Not Given A/P 61 year old Gentleman with PMhx of RUBY (ATN with peak Cr of 4.7), CKD, CAD, CHF , PVD, IDDM with LE wound and found to have Cr of 2.1 and Na of 126. #Hyponatremia serum Na now improved to within normal limits on isotonic saline with D5 contnue fluids while pt is NPO #CKD Stage 3 Renal function stable Avoid NSAIDS, IV contrast trend BUN/Cr #LE cellulitis/Wound infection/Sepsis/Enterococcus Bactermia on Ampacillin and Ceftriaxone IVF to keep MAP > 65 for BKA today wound care Daniel Cid DO
--- NOTE | 2016-09-19 14:30 | OP ---
Operative Note - Note: Operative Date: 09/19/16 Pre-Operative Diagnosis: Left foot gangrene Operation: Left BKA Post-Operative Diagnosis: Same as Pre-op Surgeon: Layo Aguillon Anesthesia: General Estimated Blood Loss (mls): 1,000 Blood Volume Replaced (mls): 500 Operative Report Dictated: Yes
[2016-09-19] MEDS ORDERED: HYDROmorphone HCL CARPU-JECT 2 MG/1 ML DISP.SYRIN IVPUSH ONE (14:42)
--- NOTE | 2016-09-19 16:00 | OP ---
DATE OF OPERATION: 09/19/2016 PREOPERATIVE DIAGNOSIS: Left foot gangrene. POSTOPERATIVE DIAGNOSIS: Left foot gangrene. PROCEDURE: Left below-knee amputation. SURGEON: Layo Meeks DO ANESTHESIA: General. BLOOD LOSS: 1000 mL. 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 It has been like that for over a year. He continues to develop recurrent bouts of osteomyelitis and sepsis, and it was decided that he would need an amputation. Patient was admitted to the hospital. Patient was consented for the procedure, understanding all risks, benefits, and alternatives and was then taken to the operating room. DESCRIPTION OF PROCEDURE: Once in the operating room, he was laid on the operating table in supine manner, and general anesthesia was administered to the patient. We then went ahead and went 4 fingerbreadths below the tibial tuberosity, and we paul a step-off incision for the flap. We then went ahead and prepped and draped the left lower extremity in sterile surgical manner. We then went ahead and used number 15 blade and cut along our incision. Bovie electrocautery was used to control hemostasis and in order to get down to the tibia. Once we got down to the tibia, the muscular attachments that were on the tibia were taken down, and we were able to expose the posterior tibial artery and vein. Posterior tibial artery and vein were exposed and clamped and ligated. We then used 0 suture ligature to ligate the blood vessel. We then went to the lateral aspect, and the muscular attachments around the tibia were taken down using Bovie electrocautery. We got down to the anterior tibial artery and vein. That was clamped and sutured ligated using 0 silk. We continued to take down the muscles using Bovie electrocautery. We were able to get posteriorly and take down the gastrocnemius muscle using Bovie electrocautery as well. We then went ahead and exposed the fibula by taking all the musculature attachments off of the fibula, and once the fibula was exposed, we then used a bone saw and retracted to the tibia first and then the fibula to 2 cm above the tibia. Once this was done, the leg was freed up, and the leg was sent down to Pathology. Bovie electrocautery used to control all hemostasis. The stump was well irrigated. We then went ahead and used 2-0 Vicryl and approximated the fascia for the flap in an interrupted manner. Using 3-0 Vicryl, we were then able to approximate the subcutaneous tissue. We then used skin naresh, and the skin was stapled together and closed. We then went ahead and placed Xeroform, 4 x 4's, ABD pad, and Kerlix and Coban. The leg was placed in knee immobilizer. Patient tolerated this procedure with no complication. Total blood loss 1000 mL. During the case, patient was administered 2 units of packed red blood cells as well. Patient was transferred to PACU in stable condition. LAYO MEEKS DO [id number]
[2016-09-19] MEDS: morphine CARPU-JECT 4 MG/1 ML DISP.SYRIN IVPUSH PRN ×2 (17:27→22:02)
[2016-09-19] MEDS: DEXTROSE 5%-NORMAL SALINE 1,000 ML IV SCH (17:34)
[2016-09-19] MEDS: ATORVASTATIN CA 20 MG TABLET (FP) PO SCH (22:04)
[2016-09-19] MEDS ORDERED: PT OWN MED DRAWER 7, Y5N ONE (22:12)
[2016-09-19 22:22] LABS: BASOPHIL 0.6 % (0-2.0); EOSINOPHIL 0.3 % (0-4.5); MCH 29.8 pg (25.7-33.7); MCHC 33.8 g/dl (32.0-35.9); MEAN CELL VOLUME 87.9 fl (80-96); MEAN PLT VOLUME 7.7 fl (7.5-11.1); NEUTROPHILS 78.1 % (42.8-82.8); PLATELET COUNT 155 K/MM3 (134-434); RDW 15.6 % (11.9-15.9); WHITE BLOOD COUNT 6.8 K/mm3 (4.0-10.0)
[2016-09-20] MEDS: AMPICILLIN NA/SULBACTAM NA 100 ML IVPB SCH ×3 (01:15→17:15)
[2016-09-20] MEDS: DEXTROSE 5%-NORMAL SALINE 1,000 ML IV SCH ×2 (05:02→16:18)
[2016-09-20 07:23] LABS: BASOPHIL 0.5 % (0-2.0); EOSINOPHIL 0.5 % (0-4.5); MCH 29.8 pg (25.7-33.7); MEAN CELL VOLUME 87.5 fl (80-96); MEAN PLT VOLUME 7.3 fl (7.5-11.1); NEUTROPHILS 78.1 % (42.8-82.8); PLATELET COUNT 154 K/MM3 (134-434); RDW 15.8 % (11.9-15.9); WHITE BLOOD COUNT 8.2 K/mm3 (4.0-10.0)
[2016-09-20] MEDS: morphine CARPU-JECT 4 MG/1 ML DISP.SYRIN IVPUSH PRN ×2 (07:38→16:15)
--- NOTE | 2016-09-20 07:43 | PN ---
[id number] (Tylenol -) 650 mg PO Q4H PRN PRN Reason: FEVER OR PAIN Ascorbic Acid (Vitamin C -) 500 mg PO DAILY [facility] Atorvastatin Calcium (Lipitor -) 20 mg PO HS [facility] Last Admin: 09/19/16 22:04 Dose: 20 mg Calcitriol (Rocaltrol -) 0.25 mcg PO DAILY [facility] Carvedilol (Coreg -) 6.25 mg PO BID [facility] Last Admin: 09/19/16 22:04 Dose: 6.25 mg Citalopram Hydrobromide (Celexa -) 20 mg PO DAILY [facility] Clopidogrel Bisulfate (Plavix -) 75 mg PO DAILY [facility] Divalproex Sodium (Depakote -) 250 mg PO BID [facility] Last Admin: 09/19/16 22:13 Dose: 250 mg Fentanyl (Sublimaze Injection -) 50 mcg IVPUSH [id number] PRN PRN Reason: PAIN Stop: 09/22/16 13:55 Heparin Sodium (Porcine) (Heparin -) 5,000 unit SQ BID [facility] Last Admin: 09/19/16 22:09 Dose: 5,000 unit Ampicillin Sodium/Sulbactam Sodium (Unasyn 1.5 Gm (Pre-Docked)) 100 mls @ 200 mls/hr IVPB Q8H-IV [facility] Last Admin: 09/20/16 01:15 Dose: 200 mls/hr Dextrose/Sodium Chloride (D5-Ns -) 1,000 mls @ 75 mls/hr IV ASDIR [facility] Last Admin: 09/20/16 05:02 Dose: 75 mls/hr Insulin Aspart (Novolog Vial Sliding Scale -) 1 vial SQ ACHS [facility] PRN Reason: Protocol Last Admin: 09/19/16 22:10 Dose: Not Given Insulin Detemir (Levemir Vial) 10 units SQ BIDI [facility] Last Admin: 09/19/16 17:34 Dose: 10 units Lactobacillus Acidophilus (Bacid -) 1 tab PO DAILY [facility] Levetiracetam (Keppra Xr -) 500 mg PO DAILY [facility] Morphine Sulfate (Morphine Injection -) 4 mg IVPUSH Q4H PRN PRN Reason: PAIN Last Admin: 09/20/16 07:38 Dose: 4 mg Sevelamer Carbonate (Renvela -) 800 mg PO TIDCM [facility] Last Admin: 09/19/16 18:10 Dose: 800 mg - Objective Vital Signs: Vital Signs Temperature 97.4 F L 09/20/16 06:19 Pulse Rate 70 09/20/16 06:19 Respiratory Rate 20 09/20/16 06:19 Blood Pressure 104/56 09/20/16 06:19 O2 Sat by Pulse Oximetry (%) 98 09/19/16 21:00 Constitutional: Yes: Calm Neck: Yes: WNL Cardiovascular: Yes: WNL Respiratory: Yes: WNL Gastrointestinal: Yes: WNL Edema: No Wound/Incision: Yes: Dressing Dry and Intact Labs: CBC, BMP 09/20/16 06:15 INR, PTT INR 1.36 (0.82-1.09) H 09/14/16 06:00 Problem List - Problems (1) RUBY (acute kidney injury) Code(s): N17.9 - ACUTE KIDNEY FAILURE, UNSPECIFIED (2) CHF exacerbation Code(s): I50.9 - HEART FAILURE, UNSPECIFIED Qualifiers: Congestive heart failure type: unspecified congestive heart failure type Qualified Code(s): I50.9 - Heart failure, unspecified (3) Cellulitis and abscess of foot Code(s): L03.119 - CELLULITIS OF UNSPECIFIED PART OF LIMB L02.619 - CUTANEOUS ABSCESS OF UNSPECIFIED FOOT (4) Diabetic foot infection Code(s): E11.69 - TYPE 2 DIABETES MELLITUS WITH OTHER SPECIFIED COMPLICATION L08.9 - LOCAL INFECTION OF THE SKIN AND SUBCUTANEOUS TISSUE, UNSP (5) Hx of BKA Code(s): Z89.519 - ACQUIRED ABSENCE OF UNSPECIFIED LEG BELOW KNEE Assessment/Plan (1) Diabetic foot infection Assessment/Plan: patient agreed to BKA for BKA by vascular hold plavix Code(s): E11.69 - TYPE 2 DIABETES MELLITUS WITH OTHER SPECIFIED COMPLICATION L08.9 - LOCAL INFECTION OF THE SKIN AND SUBCUTANEOUS TISSUE, UNSP (2) RUBY (acute kidney injury) Assessment/Plan: slightly better bun/cr Code(s): N17.9 - ACUTE KIDNEY FAILURE, UNSPECIFIED (3) Anemia Assessment/Plan: s/p prbc cbc (4) CHF (congestive heart failure) Assessment/Plan: BP running low side decrease dose of coreg Code(s): I50.9 - HEART FAILURE, UNSPECIFIED Qualifiers: (5) 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 complication Assessment/Plan: sliding scale bgm levemir Code(s): E11.29 - TYPE 2 DIABETES MELLITUS W OTH DIABETIC KIDNEY COMPLICATION
[2016-09-20] MEDS: INSULIN DETEMIR 100 UNITS/ML MDV SQ SCH ×2 (07:45→17:14)
[2016-09-20] MEDS: INSULIN SLIDING SCALE (NOVOLOG) 1 VIAL SQ SCH ×4 (07:45→21:04)
[2016-09-20 07:55] LABS: ALBUMIN 1.4 g/dl (3.4-5.0); ANION GAP 10 (8-16); BILIRUBIN,TOTAL 0.5 mg/dL (0.2-1.0); CALCIUM 7.4 mg/dL (8.5-10.1); CO2 22 mmol/L (21-32); CREATININE 1.5 mg/dL (0.7-1.3); GLUCOSE,RANDOM 64 mg/dL (74-106); MAGNESIUM 1.9 mg/dL (1.8-2.4); PHOSPHOROUS 3.3 mg/dL (2.5-4.9); SGOT/AST 9 U/L (15-37); SGPT/ALT < 6 U/L (12-78); TOT PROT 4.4 g/dl (6.4-8.2)
[2016-09-20 07:56] LABS: ALK PHOS 77 U/L (45-117)
[2016-09-20 08:15] LABS: COCKROFT - GAULT 64.21
--- NOTE | 2016-09-20 09:24 | PN ---
Progress Note, Physician Chief Complaint: sleeping comfortably History of Present Illness: s/p L BKA - Current Medication List Current Medications: Active Medications Acetaminophen (Tylenol -) 650 mg PO Q4H PRN PRN Reason: FEVER OR PAIN Ascorbic Acid (Vitamin C -) 500 mg PO DAILY [facility] Atorvastatin Calcium (Lipitor -) 20 mg PO HS [facility] Last Admin: 09/19/16 22:04 Dose: 20 mg Calcitriol (Rocaltrol -) 0.25 mcg PO DAILY [facility] Carvedilol (Coreg -) 6.25 mg PO BID [facility] Last Admin: 09/19/16 22:04 Dose: 6.25 mg Citalopram Hydrobromide (Celexa -) 20 mg PO DAILY [facility] Clopidogrel Bisulfate (Plavix -) 75 mg PO DAILY [facility] Divalproex Sodium (Depakote -) 250 mg PO BID [facility] Last Admin: 09/19/16 22:13 Dose: 250 mg Fentanyl (Sublimaze Injection -) 50 mcg IVPUSH [id number] PRN PRN Reason: PAIN Stop: 09/22/16 13:55 Heparin Sodium (Porcine) (Heparin -) 5,000 unit SQ BID [facility] Last Admin: 09/19/16 22:09 Dose: 5,000 unit Ampicillin Sodium/Sulbactam Sodium (Unasyn 1.5 Gm (Pre-Docked)) 100 mls @ 200 mls/hr IVPB Q8H-IV [facility] Last Admin: 09/20/16 01:15 Dose: 200 mls/hr Dextrose/Sodium Chloride (D5-Ns -) 1,000 mls @ 75 mls/hr IV ASDIR [facility] Last Admin: 09/20/16 05:02 Dose: 75 mls/hr Insulin Aspart (Novolog Vial Sliding Scale -) 1 vial SQ ACHS [facility] PRN Reason: Protocol Last Admin: 09/20/16 07:45 Dose: Not Given Insulin Detemir (Levemir Vial) 10 units SQ BIDI [facility] Last Admin: 09/20/16 07:45 Dose: Not Given Lactobacillus Acidophilus (Bacid -) 1 tab PO DAILY [facility] Levetiracetam (Keppra Xr -) 500 mg PO DAILY [facility] Morphine Sulfate (Morphine Injection -) 4 mg IVPUSH Q4H PRN PRN Reason: PAIN Last Admin: 09/20/16 07:38 Dose: 4 mg Sevelamer Carbonate (Renvela -) 800 mg PO TIDCM [facility] Last Admin: 09/19/16 18:10 Dose: 800 mg - Objective Vital Signs: Vital Signs Temperature 97.4 F L 09/20/16 06:19 Pulse Rate 70 09/20/16 06:19 Respiratory Rate 20 09/20/16 06:19 Blood Pressure 104/56 09/20/16 06:19 O2 Sat by Pulse Oximetry (%) 98 09/19/16 21:00 Constitutional: Yes: Calm Cardiovascular: Yes: Regular Rate and Rhythm Respiratory: Yes: CTA Bilaterally Gastrointestinal: Yes: Soft Edema: No (L BKA) Labs: CBC, BMP 09/20/16 06:15 09/20/16 06:15 INR, PTT INR 1.36 (0.82-1.09) H 09/14/16 06:00 Microbiology 09/15/16 10:35 Blood - Peripheral Venous Blood Culture - Preliminary NO GROWTH OBTAINED AFTER 96 HOURS, INCUBATION TO CONTINUE FOR 1 DAYS. 09/15/16 10:30 Blood - Peripheral Venous Blood Culture - Preliminary NO GROWTH OBTAINED AFTER 96 HOURS, INCUBATION TO CONTINUE FOR 1 DAYS. Laboratory Tests 09/20/16 09/20/16 06:15 06:15 WBC 8.2 Hgb 9.5 L Plt Count 154 Sodium 142 Potassium 3.7 Creatinine 1.5 H Assessment/Plan Necrotic foot wound s/p L BKA Sepsis CAD s/p CABG Severe LV dysfunction w/ chronic systolic CHF Chronic anemia History GI bleed/guaiac + stool CKD Hyponatremia REC: Euvolemic in NSR. Resume antiplatelet therapy when ok from surgical standpoint
[2016-09-20] MEDS ORDERED: PT OWN MED DRAWER 7, Y5N ONE (09:34)
[2016-09-20] MEDS: CITALOPRAM HYDROBROMIDE 20 MG TABLET (FP) PO SCH ×2 (09:58→10:06)
[2016-09-20] MEDS: LACTOBACILLUS ACIDOPHILUS 1 EACH TAB (FP) PO SCH ×2 (09:58→10:06)
[2016-09-20] MEDS: CARVEDILOL 6.25 MG TABLET (FP) PO SCH ×3 (09:58→21:03)
[2016-09-20] MEDS: DIVALPROEX SODIUM 250 MG TABLET E.C. (FP) PO SCH ×3 (09:58→21:03)
[2016-09-20] MEDS: levETIRAcetam XR 500 MG TAB PO SCH ×2 (09:58→10:07)
[2016-09-20] MEDS: CLOPIDOGREL BISULFATE 75 MG TABLET (FP) PO SCH ×2 (09:59→10:07)
[2016-09-20] MEDS: ASCORBIC ACID 500 MG TABLET (FP) PO SCH (09:59)
[2016-09-20] MEDS: CALCITRIOL 0.25 MCG CAPSULE (FP) PO SCH (09:59)
[2016-09-20] MEDS: HEPARIN NA (PORCINE) 5,000 UNITS/ML 1ML VIAL SQ SCH ×3 (09:59→21:03)
[2016-09-20] MEDS: SEVELAMER CARBONATE 800 MG TAB (FP) PO SCH ×4 (09:59→17:14)
--- NOTE | 2016-09-20 11:01 | PN ---
Progress Note, Physician History of Present Illness: POD #1 L BKA No c/o pain No fever/ chills Repeat blood c/s (09/15) no growth - Current Medication List Current Medications: Active Medications Acetaminophen (Tylenol -) 650 mg PO Q4H PRN PRN Reason: FEVER OR PAIN Ascorbic Acid (Vitamin C -) 500 mg PO DAILY [facility] Last Admin: 09/20/16 09:59 Dose: 500 mg Atorvastatin Calcium (Lipitor -) 20 mg PO HS [facility] Last Admin: 09/19/16 22:04 Dose: 20 mg Calcitriol (Rocaltrol -) 0.25 mcg PO DAILY [facility] Last Admin: 09/20/16 09:59 Dose: 0.25 mcg Carvedilol (Coreg -) 6.25 mg PO BID [facility] Last Admin: 09/20/16 10:06 Dose: Not Given Citalopram Hydrobromide (Celexa -) 20 mg PO DAILY [facility] Last Admin: 09/20/16 10:06 Dose: Not Given Clopidogrel Bisulfate (Plavix -) 75 mg PO DAILY [facility] Last Admin: 09/20/16 10:07 Dose: Not Given Divalproex Sodium (Depakote -) 250 mg PO BID [facility] Last Admin: 09/20/16 10:06 Dose: Not Given Fentanyl (Sublimaze Injection -) 50 mcg IVPUSH [id number] PRN PRN Reason: PAIN Stop: 09/22/16 13:55 Heparin Sodium (Porcine) (Heparin -) 5,000 unit SQ BID [facility] Last Admin: 09/20/16 10:07 Dose: Not Given Ampicillin Sodium/Sulbactam Sodium (Unasyn 1.5 Gm (Pre-Docked)) 100 mls @ 200 mls/hr IVPB Q8H-IV [facility] Last Admin: 09/20/16 09:59 Dose: 200 mls/hr Dextrose/Sodium Chloride (D5-Ns -) 1,000 mls @ 75 mls/hr IV ASDIR [facility] Last Admin: 09/20/16 05:02 Dose: 75 mls/hr Insulin Aspart (Novolog Vial Sliding Scale -) 1 vial SQ ACHS [facility] PRN Reason: Protocol Last Admin: 09/20/16 07:45 Dose: Not Given Insulin Detemir (Levemir Vial) 10 units SQ BIDI [facility] Last Admin: 09/20/16 07:45 Dose: Not Given Lactobacillus Acidophilus (Bacid -) 1 tab PO DAILY [facility] Last Admin: 09/20/16 10:06 Dose: Not Given Levetiracetam (Keppra Xr -) 500 mg PO DAILY [facility] Last Admin: 09/20/16 10:07 Dose: Not Given Morphine Sulfate (Morphine Injection -) 4 mg IVPUSH Q4H PRN PRN Reason: PAIN Last Admin: 09/20/16 07:38 Dose: 4 mg Sevelamer Carbonate (Renvela -) 800 mg PO TIDCM [facility] Last Admin: 09/20/16 10:06 Dose: Not Given - Objective Vital Signs: Vital Signs Temperature 97.4 F L 09/20/16 06:19 Pulse Rate 70 09/20/16 06:19 Respiratory Rate 20 09/20/16 06:19 Blood Pressure 104/56 09/20/16 06:19 O2 Sat by Pulse Oximetry (%) 98 09/19/16 21:00 Constitutional: Yes: No Distress Eyes: Yes: Conjunctiva Clear Cardiovascular: Yes: Regular Rate and Rhythm, S1, S2 Respiratory: Yes: CTA Bilaterally Gastrointestinal: Yes: Normal Bowel Sounds, Soft. No: Tenderness Extremities: Yes: Other (post op dressing in place) Labs: CBC, BMP 09/20/16 06:15 09/20/16 06:15 INR, PTT INR 1.36 (0.82-1.09) H 09/14/16 06:00 Assessment/Plan POD #1 BKA Enterococcal bacteremia/ sepsis Azotemia Continue Unasyn Local wound care
--- NOTE | 2016-09-20 16:24 | PN ---
Progress Note (short form) - Note Progress Note: Renal Follow up for CKD Pt seen and examined at the bedside continues to have pain at BKA site denies any sob on IVF reports no appetite Vital Signs Temperature 97.8 F 09/20/16 15:04 Pulse Rate 75 09/20/16 15:04 Respiratory Rate 18 09/20/16 15:04 Blood Pressure 107/53 09/20/16 15:04 O2 Sat by Pulse Oximetry (%) 98 09/19/16 21:00 Intake & Output 09/17/16 09/18/16 09/19/16 09/20/16 23:59 23:59 23:59 23:59 Intake Total 2368 3583 3150 2000 Output Total 700 2600 1300 Balance 2368 2883 550 700 Weight 198 lb 9 oz Gen: NAD CVS: RRR Lungs: No rales, wheeze (anterior exam) Abd: soft NT Et: L BKA, no sacral edema CBC, BMP 09/20/16 06:15 09/20/16 06:15 Current Medications Acetaminophen (Tylenol -) 650 mg PO Q4H PRN PRN Reason: FEVER OR PAIN Ascorbic Acid (Vitamin C -) 500 mg PO DAILY [facility] Last Admin: 09/20/16 09:59 Dose: 500 mg Atorvastatin Calcium (Lipitor -) 20 mg PO HS [facility] Last Admin: 09/19/16 22:04 Dose: 20 mg Calcitriol (Rocaltrol -) 0.25 mcg PO DAILY [facility] Last Admin: 09/20/16 09:59 Dose: 0.25 mcg Carvedilol (Coreg -) 6.25 mg PO BID [facility] Last Admin: 09/20/16 10:06 Dose: Not Given Citalopram Hydrobromide (Celexa -) 20 mg PO DAILY [facility] Last Admin: 09/20/16 10:06 Dose: Not Given Clopidogrel Bisulfate (Plavix -) 75 mg PO DAILY [facility] Last Admin: 09/20/16 10:07 Dose: Not Given Divalproex Sodium (Depakote -) 250 mg PO BID [facility] Last Admin: 09/20/16 10:06 Dose: Not Given Fentanyl (Sublimaze Injection -) 50 mcg IVPUSH [id number] PRN PRN Reason: PAIN Stop: 09/22/16 13:55 Heparin Sodium (Porcine) (Heparin -) 5,000 unit SQ BID [facility] Last Admin: 09/20/16 10:07 Dose: Not Given Ampicillin Sodium/Sulbactam Sodium (Unasyn 1.5 Gm (Pre-Docked)) 100 mls @ 200 mls/hr IVPB Q8H-IV [facility] Last Admin: 09/20/16 09:59 Dose: 200 mls/hr Dextrose/Sodium Chloride (D5-Ns -) 1,000 mls @ 75 mls/hr IV ASDIR [facility] Last Admin: 09/20/16 16:18 Dose: 75 mls/hr Insulin Aspart (Novolog Vial Sliding Scale -) 1 vial SQ ACHS [facility] PRN Reason: Protocol Last Admin: 09/20/16 12:34 Dose: Not Given Insulin Detemir (Levemir Vial) 10 units SQ BIDI [facility] Last Admin: 09/20/16 07:45 Dose: Not Given Lactobacillus Acidophilus (Bacid -) 1 tab PO DAILY [facility] Last Admin: 09/20/16 10:06 Dose: Not Given Levetiracetam (Keppra Xr -) 500 mg PO DAILY [facility] Last Admin: 09/20/16 10:07 Dose: Not Given Morphine Sulfate (Morphine Injection -) 4 mg IVPUSH Q4H PRN PRN Reason: PAIN Last Admin: 09/20/16 16:15 Dose: 4 mg Sevelamer Carbonate (Renvela -) 800 mg PO TIDCM [facility] Last Admin: 09/20/16 12:34 Dose: Not Given A/P 61 year old Gentleman with PMhx of RUBY (ATN with peak Cr of 4.7), CKD, CAD, CHF , PVD, IDDM with LE wound and found to have Cr of 2.1 and Na of 126. #Hyponatremia continue isotonic salne at low rate as long as pt is not eating #CKD Stage 3 Renal function stable Avoid NSAIDS, IV contrast trend BUN/Cr #LE cellulitis/Wound infection/Sepsis/Enterococcus Bactermia on Ampacillin IVF to keep MAP > 65 s/p BKA today wound care Daniel Cid DO
[2016-09-20] MEDS: ATORVASTATIN CA 20 MG TABLET (FP) PO SCH (21:03)
[2016-09-21] MEDS: AMPICILLIN NA/SULBACTAM NA 100 ML IVPB SCH ×3 (01:29→17:19)
[2016-09-21] MEDS: INSULIN DETEMIR 100 UNITS/ML MDV SQ SCH ×2 (06:04→16:37)
[2016-09-21] MEDS: INSULIN SLIDING SCALE (NOVOLOG) 1 VIAL SQ SCH ×4 (06:05→22:28)
[2016-09-21 07:12] LABS: BASOPHIL 0.7 % (0-2.0); EOSINOPHIL 1.4 % (0-4.5); MCH 29.7 pg (25.7-33.7); MCHC 33.7 g/dl (32.0-35.9); MEAN CELL VOLUME 88.3 fl (80-96); NEUTROPHILS 75.7 % (42.8-82.8); PLATELET COUNT 122 K/MM3 (134-434); WHITE BLOOD COUNT 6.3 K/mm3 (4.0-10.0)
[2016-09-21 07:42] LABS: ALBUMIN 1.3 g/dl (3.4-5.0); ANION GAP 8 (8-16); CO2 23 mmol/L (21-32); GLUCOSE,RANDOM 105 mg/dL (74-106)
[2016-09-21 07:45] LABS: ALK PHOS 72 U/L (45-117); BILIRUBIN,TOTAL 0.6 mg/dL (0.2-1.0); COCKROFT - GAULT 74.83; CREATININE 1.3 mg/dL (0.7-1.3); SGOT/AST 9 U/L (15-37); SGPT/ALT < 6 U/L (12-78); TOT PROT 4.2 g/dl (6.4-8.2)
--- NOTE | 2016-09-21 08:08 | PN ---
Progress Note (short form) - Note Progress Note: POD#2 s/p Left BKA Pt with complaints of pain in left extremity. Vital Signs Period Temp Pulse Resp BP Sys/Mejia Pulse Ox Last 24 Hr 97.8 F-98.9 F 68-79 18-20 104-118/51-59 96-98 PE: GEN: appears comfrotable Left leg: BKA dressing c/d/i. Knee immoblizer in place. CBC, BMP 04// 06:00 04//17 06:00 A/P: 61 yo male s/p Left BKA, POD#2 Continue to medicate for pain, renewed IV Morpihe for severe pain and added oxycodone 5 to 10 mg Q6 hours. He may also receive tylenol for pain. Knee immoblizer in place and to remain Will remove dressing POD#3 D/w Dr. Aguillon
[2016-09-21] MEDS ORDERED: oxyCODONE HCL 5 MG TABLET PO PRN (08:12)
[2016-09-21] MEDS: morphine CARPU-JECT 2 MG/1 ML DISP.SYRIN IVPUSH PRN ×2 (08:43→21:06)
[2016-09-21] MEDS: SEVELAMER CARBONATE 800 MG TAB (FP) PO SCH ×4 (08:43→17:22)
[2016-09-21] MEDS ORDERED: PT OWN MED DRAWER 7, Y5N ONE (09:45)
[2016-09-21] MEDS: LACTOBACILLUS ACIDOPHILUS 1 EACH TAB (FP) PO SCH (09:48)
[2016-09-21] MEDS: CITALOPRAM HYDROBROMIDE 20 MG TABLET (FP) PO SCH (09:48)
[2016-09-21] MEDS: DIVALPROEX SODIUM 250 MG TABLET E.C. (FP) PO SCH ×2 (09:49→22:28)
[2016-09-21] MEDS: CARVEDILOL 6.25 MG TABLET (FP) PO SCH ×2 (09:49→22:27)
[2016-09-21] MEDS: levETIRAcetam XR 500 MG TAB PO SCH (09:50)
[2016-09-21] MEDS: CLOPIDOGREL BISULFATE 75 MG TABLET (FP) PO SCH (09:50)
[2016-09-21] MEDS: ASCORBIC ACID 500 MG TABLET (FP) PO SCH (09:51)
[2016-09-21] MEDS: CALCITRIOL 0.25 MCG CAPSULE (FP) PO SCH (09:51)
[2016-09-21] MEDS: HEPARIN NA (PORCINE) 5,000 UNITS/ML 1ML VIAL SQ SCH ×2 (09:53→22:28)
--- NOTE | 2016-09-21 11:00 | PN ---
Progress Note, Physician - Current Medication List Current Medications: Active Medications Acetaminophen (Tylenol -) 650 mg PO Q4H PRN PRN Reason: FEVER OR PAIN Ascorbic Acid (Vitamin C -) 500 mg PO DAILY [facility] Last Admin: 09/21/16 09:51 Dose: Not Given Atorvastatin Calcium (Lipitor -) 20 mg PO HS [facility] Last Admin: 09/20/16 21:03 Dose: 20 mg Calcitriol (Rocaltrol -) 0.25 mcg PO DAILY [facility] Last Admin: 09/21/16 09:51 Dose: Not Given Carvedilol (Coreg -) 6.25 mg PO BID [facility] Last Admin: 09/21/16 09:49 Dose: Not Given Citalopram Hydrobromide (Celexa -) 20 mg PO DAILY [facility] Last Admin: 09/21/16 09:48 Dose: Not Given Clopidogrel Bisulfate (Plavix -) 75 mg PO DAILY [facility] Last Admin: 09/21/16 09:50 Dose: Not Given Divalproex Sodium (Depakote -) 250 mg PO BID [facility] Last Admin: 09/21/16 09:49 Dose: Not Given Fentanyl (Sublimaze Injection -) 50 mcg IVPUSH [id number] PRN PRN Reason: PAIN Stop: 09/22/16 13:55 Heparin Sodium (Porcine) (Heparin -) 5,000 unit SQ BID [facility] Last Admin: 09/21/16 09:53 Dose: Not Given Ampicillin Sodium/Sulbactam Sodium (Unasyn 1.5 Gm (Pre-Docked)) 100 mls @ 200 mls/hr IVPB Q8H-IV [facility] Last Admin: 09/21/16 09:51 Dose: 200 mls/hr Insulin Aspart (Novolog Vial Sliding Scale -) 1 vial SQ ACHS [facility] PRN Reason: Protocol Last Admin: 09/21/16 06:05 Dose: Not Given Insulin Detemir (Levemir Vial) 10 units SQ BIDI [facility] Last Admin: 09/21/16 06:04 Dose: Not Given Lactobacillus Acidophilus (Bacid -) 1 tab PO DAILY [facility] Last Admin: 09/21/16 09:48 Dose: Not Given Levetiracetam (Keppra Xr -) 500 mg PO DAILY [facility] Last Admin: 09/21/16 09:50 Dose: Not Given Morphine Sulfate (Morphine Injection -) 2 mg IVPUSH Q4H PRN PRN Reason: PAIN LEVEL 6-10 Last Admin: 09/21/16 08:43 Dose: 2 mg Oxycodone HCl (Roxicodone -) 5 mg PO Q6H PRN PRN Reason: PAIN LEVEL 1-5 Oxycodone HCl (Roxicodone -) 10 mg PO Q6H PRN PRN Reason: PAIN LEVEL 6-10 Sevelamer Carbonate (Renvela -) 800 mg PO TIDCM [facility] Last Admin: 09/21/16 08:49 Dose: Not Given - Objective Vital Signs: Vital Signs Temperature 97.3 F L 09/21/16 08:30 Pulse Rate 75 09/21/16 09:35 Respiratory Rate 18 09/21/16 08:30 Blood Pressure 114/62 09/21/16 08:30 O2 Sat by Pulse Oximetry (%) 98 09/21/16 09:35 Constitutional: Yes: Calm HENT: Yes: WNL Neck: Yes: WNL Cardiovascular: Yes: WNL Respiratory: Yes: WNL Gastrointestinal: Yes: WNL Edema: No Wound/Incision: Yes: Dressing Dry and Intact Labs: CBC, BMP 09/21/16 06:00 09/21/16 06:00 INR, PTT INR 1.36 (0.82-1.09) H 09/14/16 06:00 Problem List - Problems (1) RUBY (acute kidney injury) Code(s): N17.9 - ACUTE KIDNEY FAILURE, UNSPECIFIED (2) Diabetic foot infection Code(s): E11.69 - TYPE 2 DIABETES MELLITUS WITH OTHER SPECIFIED COMPLICATION L08.9 - LOCAL INFECTION OF THE SKIN AND SUBCUTANEOUS TISSUE, UNSP (3) 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 complication Code(s): E11.29 - TYPE 2 DIABETES MELLITUS W OTH DIABETIC KIDNEY COMPLICATION (4) Wound infection Code(s): T14.8 - OTHER INJURY OF UNSPECIFIED BODY REGION L08.9 - LOCAL INFECTION OF THE SKIN AND SUBCUTANEOUS TISSUE, UNSP (5) Chronic kidney disease, stage 3 (moderate) Code(s): N18.3 - CHRONIC KIDNEY DISEASE, STAGE 3 (MODERATE) (6) CHF (congestive heart failure) Code(s): I50.9 - HEART FAILURE, UNSPECIFIED Qualifiers: (7) Diabetes Code(s): E11.9 - TYPE 2 DIABETES MELLITUS WITHOUT COMPLICATIONS Qualifiers: Diabetes mellitus type: type 2 Diabetes mellitus complication detail: with peripheral angiopathy without gangrene (8) Hx of BKA Code(s): Z89.519 - ACQUIRED ABSENCE OF UNSPECIFIED LEG BELOW KNEE Assessment/Plan (1) Diabetic foot infection Assessment/Plan: patient agreed to BKA S/P BKA by vascular Code(s): E11.69 - TYPE 2 DIABETES MELLITUS WITH OTHER SPECIFIED COMPLICATION L08.9 - LOCAL INFECTION OF THE SKIN AND SUBCUTANEOUS TISSUE, UNSP (2) RUBY (acute kidney injury) Assessment/Plan: slightly better bun/cr Code(s): N17.9 - ACUTE KIDNEY FAILURE, UNSPECIFIED (3) Anemia Assessment/Plan: s/p prbc cbc (4) CHF (congestive heart failure) Assessment/Plan: BP running low side decrease dose of coreg Code(s): I50.9 - HEART FAILURE, UNSPECIFIED Qualifiers: (5) 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 complication Assessment/Plan: sliding scale bgm levemir Code(s): E11.29 - TYPE 2 DIABETES MELLITUS W OTH DIABETIC KIDNEY COMPLICATION [employer]
--- NOTE | 2016-09-21 13:52 | PN ---
Progress Note (short form) - Note Progress Note: Vascular Surgery POD #1 left bka Doing well Pain well controlled. Follow H/H in am. Dressing comes down friday. Layo Agulilon DO
--- NOTE | 2016-09-21 14:17 | PN ---
Progress Note, Physician Chief Complaint: Seen in his bed. Very irritable. The nurse reports that he is refusing all his medications IV antibiotics infusing. Maintains good urine output. - Current Medication List Current Medications: Active Medications Acetaminophen (Tylenol -) 650 mg PO Q4H PRN PRN Reason: FEVER OR PAIN Ascorbic Acid (Vitamin C -) 500 mg PO DAILY [facility] Last Admin: 09/21/16 09:51 Dose: Not Given Atorvastatin Calcium (Lipitor -) 20 mg PO HS [facility] Last Admin: 09/20/16 21:03 Dose: 20 mg Calcitriol (Rocaltrol -) 0.25 mcg PO DAILY [facility] Last Admin: 09/21/16 09:51 Dose: Not Given Carvedilol (Coreg -) 6.25 mg PO BID [facility] Last Admin: 09/21/16 09:49 Dose: Not Given Citalopram Hydrobromide (Celexa -) 20 mg PO DAILY [facility] Last Admin: 09/21/16 09:48 Dose: Not Given Clopidogrel Bisulfate (Plavix -) 75 mg PO DAILY [facility] Last Admin: 09/21/16 09:50 Dose: Not Given Divalproex Sodium (Depakote -) 250 mg PO BID [facility] Last Admin: 09/21/16 09:49 Dose: Not Given Fentanyl (Sublimaze Injection -) 50 mcg IVPUSH [id number] PRN PRN Reason: PAIN Stop: 09/22/16 13:55 Heparin Sodium (Porcine) (Heparin -) 5,000 unit SQ BID [facility] Last Admin: 09/21/16 09:53 Dose: Not Given Ampicillin Sodium/Sulbactam Sodium (Unasyn 1.5 Gm (Pre-Docked)) 100 mls @ 200 mls/hr IVPB Q8H-IV [facility] Last Admin: 09/21/16 09:51 Dose: 200 mls/hr Insulin Aspart (Novolog Vial Sliding Scale -) 1 vial SQ ACHS [facility] PRN Reason: Protocol Last Admin: 09/21/16 11:35 Dose: Not Given Insulin Detemir (Levemir Vial) 10 units SQ BIDI [facility] Last Admin: 09/21/16 06:04 Dose: Not Given Lactobacillus Acidophilus (Bacid -) 1 tab PO DAILY [facility] Last Admin: 09/21/16 09:48 Dose: Not Given Levetiracetam (Keppra Xr -) 500 mg PO DAILY [facility] Last Admin: 09/21/16 09:50 Dose: Not Given Morphine Sulfate (Morphine Injection -) 2 mg IVPUSH Q4H PRN PRN Reason: PAIN LEVEL 6-10 Last Admin: 09/21/16 08:43 Dose: 2 mg Oxycodone HCl (Roxicodone -) 5 mg PO Q6H PRN PRN Reason: PAIN LEVEL 1-5 Oxycodone HCl (Roxicodone -) 10 mg PO Q6H PRN PRN Reason: PAIN LEVEL 6-10 Sevelamer Carbonate (Renvela -) 800 mg PO TIDCM [facility] Last Admin: 09/21/16 11:34 Dose: Not Given - Objective Vital Signs: Vital Signs Temperature 97.3 F L 09/21/16 08:30 Pulse Rate 75 09/21/16 09:35 Respiratory Rate 18 09/21/16 08:30 Blood Pressure 114/62 09/21/16 08:30 O2 Sat by Pulse Oximetry (%) 98 09/21/16 09:35 Constitutional: Yes: No Distress Eyes: Yes: WNL, Conjunctiva Clear HENT: Yes: WNL, Atraumatic, Normocephalic Cardiovascular: Yes: Regular Rate and Rhythm, S1, S2 Respiratory: Yes: Regular, Diminished, Poor Air Entry Gastrointestinal: Yes: Normal Bowel Sounds, Soft Extremities: Yes: Amputation Labs: CBC, BMP 09/21/16 06:00 09/21/16 06:00 INR, PTT INR 1.36 (0.82-1.09) H 09/14/16 06:00 Problem List - Problems (1) RUBY (acute kidney injury) Code(s): N17.9 - ACUTE KIDNEY FAILURE, UNSPECIFIED (2) CHF exacerbation Code(s): I50.9 - HEART FAILURE, UNSPECIFIED Qualifiers: Congestive heart failure type: unspecified congestive heart failure type Qualified Code(s): I50.9 - Heart failure, unspecified (3) Cellulitis and abscess of foot Code(s): L03.119 - CELLULITIS OF UNSPECIFIED PART OF LIMB L02.619 - CUTANEOUS ABSCESS OF UNSPECIFIED FOOT (4) Diabetic foot infection Code(s): E11.69 - TYPE 2 DIABETES MELLITUS WITH OTHER SPECIFIED COMPLICATION L08.9 - LOCAL INFECTION OF THE SKIN AND SUBCUTANEOUS TISSUE, UNSP (5) Edema Code(s): R60.9 - EDEMA, UNSPECIFIED (6) 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 complication Code(s): E11.29 - TYPE 2 DIABETES MELLITUS W OTH DIABETIC KIDNEY COMPLICATION (7) Diabetic foot ulcer Code(s): E11.621 - TYPE 2 DIABETES MELLITUS WITH FOOT ULCER L97.509 - NON-PRESSURE CHRONIC ULCER OTH PRT UNSP FOOT W UNSP SEVERITY Qualifiers: Diabetic foot ulcer location: midfoot Diabetes mellitus type: other specified (including KEREN) Laterality: left Non-pressure ulcer stage: unspecified non-pressure ulcer stage Qualified Code(s): E13.621 - Other specified diabetes mellitus with foot ulcer; L97.409 - Non-pressure chronic ulcer of unspecified heel and midfoot with unspecified severity (8) Diabetic neuropathy Code(s): E11.40 - TYPE 2 DIABETES MELLITUS WITH DIABETIC NEUROPATHY, UNSP Qualifiers: Diabetes mellitus type: other specified (including KEREN) Diabetes mellitus complication detail: diabetic polyneuropathy Qualified Code(s): E13.42 - Other specified diabetes mellitus with diabetic polyneuropathy (9) Acute kidney failure Code(s): N17.9 - ACUTE KIDNEY FAILURE, UNSPECIFIED (10) Chronic kidney disease (CKD) stage G3a/A2, moderately decreased glomerular filtration rate (GFR) between 45-59 mL/min/1.73 square meter and albuminuria creatinine ratio between 30-299 mg/g Code(s): N18.3 - CHRONIC KIDNEY DISEASE, STAGE 3 (MODERATE) Assessment/Plan The patient's renal functions are fairly stable. Discussed with him about the need for compliance with medications ordered in the hospital. Concur with the current management IV abx to continue Will monitor the renal functions with you. Thanks again. Maria R Hidalgo MD
[2016-09-21] MEDS: POTASSIUM CHLORIDE TABS 20 MEQ TABLET.ER (FP) PO SCH (15:34)
[2016-09-21] MEDS: ATORVASTATIN CA 20 MG TABLET (FP) PO SCH (22:28)
[2016-09-22] MEDS: AMPICILLIN NA/SULBACTAM NA 100 ML IVPB SCH ×3 (04:00→17:11)
[2016-09-22] MEDS: INSULIN SLIDING SCALE (NOVOLOG) 1 VIAL SQ SCH ×5 (06:13→22:18)
[2016-09-22] MEDS: INSULIN DETEMIR 100 UNITS/ML MDV SQ SCH ×2 (06:13→17:12)
[2016-09-22] MEDS: SEVELAMER CARBONATE 800 MG TAB (FP) PO SCH ×5 (08:32→17:11)
[2016-09-22] MEDS: DEXTROSE 5%-NORMAL SALINE 1,000 ML IV SCH (08:33)
--- NOTE | 2016-09-22 08:49 | PN ---
Progress Note (short form) - Note Progress Note: POD#3 Pt doing well, some pain with dressing change today. Vital Signs Period Temp Pulse Resp BP Sys/Mejia Pulse Ox Last 24 Hr 97.0 F-98.3 F 75-85 18-18 105-134/57-71 98-98 PE: Left BKA-inc line c/d/i with naresh. No erythema or flap ischemia noted. 2x2cm area of pressure ulcer with skin intact over patella. CBC, BMP 09/21/16 06:00 A/P: 61 yo male s/p left BKA, POD#3 Surgical site clean and intact. Xeroform, abd, kerlix and greyson wrap applied with abd placed over the knee for protection. Knee immoblizer reapplied. Recommend Physical Therapy to start. OOB to chair with pivot transfer on right TMA/heel. Bernardino Aguillon
[2016-09-22 09:14] LABS: ALBUMIN 1.4 g/dl (3.4-5.0); ALK PHOS 79 U/L (45-117); ANION GAP 11 (8-16); BILIRUBIN,TOTAL 0.6 mg/dL (0.2-1.0); CALCIUM 7.4 mg/dL (8.5-10.1); CO2 21 mmol/L (21-32); COCKROFT - GAULT 75.86; CREATININE 1.3 mg/dL (0.7-1.3); GLUCOSE,RANDOM 84 mg/dL (74-106); MAGNESIUM 1.7 mg/dL (1.8-2.4); SGOT/AST 5 U/L (15-37); SGPT/ALT < 6 U/L (12-78); TOT PROT 4.6 g/dl (6.4-8.2)
[2016-09-22] MEDS: oxyCODONE HCL 5 MG TABLET PO PRN (10:34)
[2016-09-22] MEDS: CALCITRIOL 0.25 MCG CAPSULE (FP) PO SCH (10:34)
[2016-09-22] MEDS: POTASSIUM CHLORIDE TABS 20 MEQ TABLET.ER (FP) PO SCH (10:34)
[2016-09-22] MEDS: CLOPIDOGREL BISULFATE 75 MG TABLET (FP) PO SCH (10:34)
[2016-09-22] MEDS: CITALOPRAM HYDROBROMIDE 20 MG TABLET (FP) PO SCH (10:34)
[2016-09-22] MEDS: ACETAMINOPHEN 325 MG TABLET (FP) PO PRN (10:35)
[2016-09-22] MEDS: LACTOBACILLUS ACIDOPHILUS 1 EACH TAB (FP) PO SCH (10:35)
[2016-09-22] MEDS: ASCORBIC ACID 500 MG TABLET (FP) PO SCH (10:35)
[2016-09-22] MEDS: CARVEDILOL 6.25 MG TABLET (FP) PO SCH ×2 (10:35→22:28)
[2016-09-22] MEDS: levETIRAcetam XR 500 MG TAB PO SCH (10:37)
[2016-09-22] MEDS: DIVALPROEX SODIUM 250 MG TABLET E.C. (FP) PO SCH ×2 (10:38→22:28)
[2016-09-22] MEDS: HEPARIN NA (PORCINE) 5,000 UNITS/ML 1ML VIAL SQ SCH ×3 (10:39→22:10)
[2016-09-22] MEDS ORDERED: PT OWN MED DRAWER 7, Y5N ONE (10:52)
--- NOTE | 2016-09-22 16:29 | PN ---
Progress Note, Physician Chief Complaint: NO COMPLAINTS - Current Medication List Current Medications: Active Medications Acetaminophen (Tylenol -) 650 mg PO Q4H PRN PRN Reason: FEVER OR PAIN Last Admin: 09/22/16 10:35 Dose: 650 mg Ascorbic Acid (Vitamin C -) 500 mg PO DAILY [facility] Last Admin: 09/22/16 10:35 Dose: 500 mg Atorvastatin Calcium (Lipitor -) 20 mg PO HS [facility] Last Admin: 09/21/16 22:28 Dose: Not Given Calcitriol (Rocaltrol -) 0.25 mcg PO DAILY [facility] Last Admin: 09/22/16 10:34 Dose: 0.25 mcg Carvedilol (Coreg -) 6.25 mg PO BID [facility] Last Admin: 09/22/16 10:35 Dose: 6.25 mg Citalopram Hydrobromide (Celexa -) 20 mg PO DAILY [facility] Last Admin: 09/22/16 10:34 Dose: 20 mg Clopidogrel Bisulfate (Plavix -) 75 mg PO DAILY [facility] Last Admin: 09/22/16 10:34 Dose: 75 mg Divalproex Sodium (Depakote -) 250 mg PO BID [facility] Last Admin: 09/22/16 10:38 Dose: 250 mg Heparin Sodium (Porcine) (Heparin -) 5,000 unit SQ BID [facility] Last Admin: 09/22/16 10:49 Dose: Not Given Ampicillin Sodium/Sulbactam Sodium (Unasyn 1.5 Gm (Pre-Docked)) 100 mls @ 200 mls/hr IVPB Q8H-IV [facility] Last Admin: 09/22/16 10:34 Dose: 200 mls/hr Insulin Aspart (Novolog Vial Sliding Scale -) 1 vial SQ ACHS [facility] PRN Reason: Protocol Last Admin: 09/22/16 11:57 Dose: Not Given Insulin Detemir (Levemir Vial) 10 units SQ BIDI [facility] Last Admin: 09/22/16 06:13 Dose: Not Given Lactobacillus Acidophilus (Bacid -) 1 tab PO DAILY [facility] Last Admin: 09/22/16 10:35 Dose: 1 tab Levetiracetam (Keppra Xr -) 500 mg PO DAILY [facility] Last Admin: 09/22/16 10:37 Dose: 500 mg Morphine Sulfate (Morphine Injection -) 2 mg IVPUSH Q4H PRN PRN Reason: PAIN LEVEL 6-10 Last Admin: 09/21/16 21:06 Dose: 2 mg Oxycodone HCl (Roxicodone -) 5 mg PO Q6H PRN PRN Reason: PAIN LEVEL 1-5 Last Admin: 09/22/16 10:34 Dose: 5 mg Oxycodone HCl (Roxicodone -) 10 mg PO Q6H PRN PRN Reason: PAIN LEVEL 6-10 Potassium Chloride (K-Dur -) 20 meq PO DAILY [facility] Last Admin: 09/22/16 10:34 Dose: 20 meq Sevelamer Carbonate (Renvela -) 800 mg PO TIDCM [facility] Last Admin: 09/22/16 11:58 Dose: Not Given - Objective Vital Signs: Vital Signs Temperature 98.6 F 09/22/16 15:39 Pulse Rate 82 09/22/16 15:39 Respiratory Rate 18 09/22/16 15:39 Blood Pressure 127/74 09/22/16 15:39 O2 Sat by Pulse Oximetry (%) 98 09/22/16 09:00 Constitutional: Yes: Calm Neck: Yes: WNL Cardiovascular: Yes: WNL Respiratory: Yes: WNL Gastrointestinal: Yes: WNL Edema: No Wound/Incision: Yes: Dressing Dry and Intact Labs: CBC, BMP 09/21/16 06:00 09/22/16 06:30 INR, PTT INR 1.36 (0.82-1.09) H 09/14/16 06:00 Problem List - Problems (1) RUBY (acute kidney injury) Code(s): N17.9 - ACUTE KIDNEY FAILURE, UNSPECIFIED (2) Diabetic foot infection Code(s): E11.69 - TYPE 2 DIABETES MELLITUS WITH OTHER SPECIFIED COMPLICATION L08.9 - LOCAL INFECTION OF THE SKIN AND SUBCUTANEOUS TISSUE, UNSP (3) 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 complication Code(s): E11.29 - TYPE 2 DIABETES MELLITUS W OTH DIABETIC KIDNEY COMPLICATION (4) Wound infection Code(s): T14.8 - OTHER INJURY OF UNSPECIFIED BODY REGION L08.9 - LOCAL INFECTION OF THE SKIN AND SUBCUTANEOUS TISSUE, UNSP (5) Chronic kidney disease, stage 3 (moderate) Code(s): N18.3 - CHRONIC KIDNEY DISEASE, STAGE 3 (MODERATE) (6) CHF (congestive heart failure) Code(s): I50.9 - HEART FAILURE, UNSPECIFIED Qualifiers: (7) Diabetes Code(s): E11.9 - TYPE 2 DIABETES MELLITUS WITHOUT COMPLICATIONS Qualifiers: Diabetes mellitus type: type 2 Diabetes mellitus complication detail: with peripheral angiopathy without gangrene (8) Hx of BKA Code(s): Z89.519 - ACQUIRED ABSENCE OF UNSPECIFIED LEG BELOW KNEE Assessment/Plan (1) Diabetic foot infection Assessment/Plan: S/P BKA by vascular pt Code(s): E11.69 - TYPE 2 DIABETES MELLITUS WITH OTHER SPECIFIED COMPLICATION L08.9 - LOCAL INFECTION OF THE SKIN AND SUBCUTANEOUS TISSUE, UNSP (2) RUBY (acute kidney injury) Assessment/Plan: resolved renal on case Code(s): N17.9 - ACUTE KIDNEY FAILURE, UNSPECIFIED (3) Anemia Assessment/Plan: s/p prbc stable monitor (4) CHF (congestive heart failure) Assessment/Plan: BP running low side decrease dose of coreg Code(s): I50.9 - HEART FAILURE, UNSPECIFIED Qualifiers: (5) 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 complication Assessment/Plan: sliding scale bgm levemir Code(s): E11.29 - TYPE 2 DIABETES MELLITUS W OTH DIABETIC KIDNEY COMPLICATION DISCHARGE PLANNING TO SNF [facility]
[2016-09-22] MEDS ORDERED: INSULIN DETEMIR 100 UNITS/ML MDV SQ ONE (17:20)
[2016-09-22] MEDS ORDERED: INSULIN (NOVOLOG) ASPART 100 UNITS/ML 10ML VIAL ONE (17:20)
[2016-09-22] MEDS: ATORVASTATIN CA 20 MG TABLET (FP) PO SCH (22:17)
[2016-09-23] MEDS: AMPICILLIN NA/SULBACTAM NA 100 ML IVPB SCH ×3 (02:29→17:18)
[2016-09-23] MEDS: INSULIN DETEMIR 100 UNITS/ML MDV SQ SCH ×2 (07:06→16:47)
[2016-09-23] MEDS: INSULIN SLIDING SCALE (NOVOLOG) 1 VIAL SQ SCH ×4 (07:06→22:39)
--- NOTE | 2016-09-23 07:59 | PN ---
Progress Note, Physician History of Present Illness: s/p left bka c/o diarrhea - Current Medication List Current Medications: Active Medications Acetaminophen (Tylenol -) 650 mg PO Q4H PRN PRN Reason: FEVER OR PAIN Last Admin: 09/22/16 10:35 Dose: 650 mg Ascorbic Acid (Vitamin C -) 500 mg PO DAILY [facility] Last Admin: 09/22/16 10:35 Dose: 500 mg Atorvastatin Calcium (Lipitor -) 20 mg PO HS [facility] Last Admin: 09/22/16 22:17 Dose: 20 mg Calcitriol (Rocaltrol -) 0.25 mcg PO DAILY [facility] Last Admin: 09/22/16 10:34 Dose: 0.25 mcg Carvedilol (Coreg -) 6.25 mg PO BID [facility] Last Admin: 09/22/16 22:28 Dose: Not Given Citalopram Hydrobromide (Celexa -) 20 mg PO DAILY [facility] Last Admin: 09/22/16 10:34 Dose: 20 mg Clopidogrel Bisulfate (Plavix -) 75 mg PO DAILY [facility] Last Admin: 09/22/16 10:34 Dose: 75 mg Divalproex Sodium (Depakote -) 250 mg PO BID [facility] Last Admin: 09/22/16 22:28 Dose: Not Given Heparin Sodium (Porcine) (Heparin -) 5,000 unit SQ BID [facility] Last Admin: 09/22/16 22:10 Dose: Not Given Ampicillin Sodium/Sulbactam Sodium (Unasyn 1.5 Gm (Pre-Docked)) 100 mls @ 200 mls/hr IVPB Q8H-IV [facility] Last Admin: 09/23/16 02:29 Dose: 200 mls/hr Insulin Aspart (Novolog Vial Sliding Scale -) 1 vial SQ ACHS [facility] PRN Reason: Protocol Last Admin: 09/23/16 07:06 Dose: Not Given Insulin Detemir (Levemir Vial) 10 units SQ BIDI [facility] Last Admin: 09/23/16 07:06 Dose: Not Given Lactobacillus Acidophilus (Bacid -) 1 tab PO DAILY [facility] Last Admin: 09/22/16 10:35 Dose: 1 tab Levetiracetam (Keppra Xr -) 500 mg PO DAILY [facility] Last Admin: 09/22/16 10:37 Dose: 500 mg Oxycodone HCl (Roxicodone -) 5 mg PO Q6H PRN PRN Reason: PAIN LEVEL 1-5 Last Admin: 09/22/16 10:34 Dose: 5 mg Potassium Chloride (K-Dur -) 20 meq PO DAILY [facility] Last Admin: 09/22/16 10:34 Dose: 20 meq Sevelamer Carbonate (Renvela -) 800 mg PO TIDCM [facility] Last Admin: 09/22/16 17:11 Dose: 800 mg - Objective Vital Signs: Vital Signs Temperature 96.6 F L 09/23/16 06:00 Pulse Rate 70 09/23/16 06:00 Respiratory Rate 18 09/23/16 06:00 Blood Pressure 133/68 09/23/16 06:00 O2 Sat by Pulse Oximetry (%) 98 09/22/16 21:00 Cardiovascular: Yes: Regular Rate and Rhythm Respiratory: Yes: Regular, CTA Bilaterally Gastrointestinal: Yes: Normal Bowel Sounds, Soft. No: Tenderness Extremities: Yes: Amputation (with dressing in place) Labs: CBC, BMP 09/21/16 06:00 09/22/16 06:30 INR, PTT INR 1.36 (0.82-1.09) H 09/14/16 06:00 Problem List - Problems (1) Diabetic foot infection Code(s): E11.69 - TYPE 2 DIABETES MELLITUS WITH OTHER SPECIFIED COMPLICATION L08.9 - LOCAL INFECTION OF THE SKIN AND SUBCUTANEOUS TISSUE, UNSP (2) RUBY (acute kidney injury) Code(s): N17.9 - ACUTE KIDNEY FAILURE, UNSPECIFIED (3) CHF exacerbation Code(s): I50.9 - HEART FAILURE, UNSPECIFIED Qualifiers: Congestive heart failure type: unspecified congestive heart failure type Qualified Code(s): I50.9 - Heart failure, unspecified (4) 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 complication Assessment/Plan: BGM AND SS Code(s): E11.29 - TYPE 2 DIABETES MELLITUS W OTH DIABETIC KIDNEY COMPLICATION (5) Edema Code(s): R60.9 - EDEMA, UNSPECIFIED (6) Enterococcal bacteremia Assessment/Plan: ON UNASYN ID FOLLOW UP Code(s): R78.81 - BACTEREMIA (7) Hx of BKA Assessment/Plan: Operative Date: 09/19/16 Pre-Operative Diagnosis: Left foot gangrene Operation: Left BKA Post-Operative Diagnosis: Same as Pre-op Surgeon: Layo Aguillon Code(s): Z89.519 - ACQUIRED ABSENCE OF UNSPECIFIED LEG BELOW KNEE (8) CAD (coronary artery disease) Assessment/Plan: NO CP SAME MEDS Code(s): I25.10 - ATHSCL HEART DISEASE OF [place] [employer] CORONARY ARTERY W/O ANG PCTRS (9) Chronic kidney disease, stage 3 (moderate) Assessment/Plan: MONITOR ON CURRENT MEDS Code(s): N18.3 - CHRONIC KIDNEY DISEASE, STAGE 3 (MODERATE) (10) Anemia Assessment/Plan: AWAIT REPEAT Code(s): D64.9 - ANEMIA, UNSPECIFIED Assessment/Plan D C PLAN D/W PT--AGREES TO SNF--BEE
[2016-09-23 08:26] LABS: BASOPHIL 0.5 % (0-2.0); EOSINOPHIL 1.3 % (0-4.5); MCHC 33.7 g/dl (32.0-35.9); MEAN CELL VOLUME 88.9 fl (80-96); MEAN PLT VOLUME 7.2 fl (7.5-11.1); NEUTROPHILS 78.2 % (42.8-82.8); PLATELET COUNT 188 K/MM3 (134-434); RDW 16.2 % (11.9-15.9); WHITE BLOOD COUNT 8.5 K/mm3 (4.0-10.0)
[2016-09-23 08:46] LABS: ALBUMIN 1.4 g/dl (3.4-5.0)
[2016-09-23 08:53] LABS: ALK PHOS 80 U/L (45-117); ANION GAP 9 (8-16); BILIRUBIN,TOTAL 0.5 mg/dL (0.2-1.0); CALCIUM 7.2 mg/dL (8.5-10.1); CO2 22 mmol/L (21-32); COCKROFT - GAULT 75.15; CREATININE 1.3 mg/dL (0.7-1.3); MAGNESIUM 1.9 mg/dL (1.8-2.4); SGOT/AST 8 U/L (15-37); SGPT/ALT < 6 U/L (12-78); TOT PROT 4.7 g/dl (6.4-8.2)
[2016-09-23] MEDS: SEVELAMER CARBONATE 800 MG TAB (FP) PO SCH ×4 (08:59→17:21)
[2016-09-23 09:12] LABS: GLUCOSE,RANDOM 43 mg/dL (74-106)
[2016-09-23] MEDS: CITALOPRAM HYDROBROMIDE 20 MG TABLET (FP) PO SCH (10:00)
[2016-09-23] MEDS: ASCORBIC ACID 500 MG TABLET (FP) PO SCH (10:00)
[2016-09-23] MEDS: POTASSIUM CHLORIDE TABS 20 MEQ TABLET.ER (FP) PO SCH (10:00)
[2016-09-23] MEDS: ACETAMINOPHEN 325 MG TABLET (FP) PO PRN ×2 (10:00→17:19)
[2016-09-23] MEDS: CLOPIDOGREL BISULFATE 75 MG TABLET (FP) PO SCH (10:00)
[2016-09-23] MEDS: CALCITRIOL 0.25 MCG CAPSULE (FP) PO SCH (10:00)
[2016-09-23] MEDS: oxyCODONE HCL 5 MG TABLET PO PRN ×2 (10:01→17:20)
[2016-09-23] MEDS: CARVEDILOL 6.25 MG TABLET (FP) PO SCH ×2 (10:02→22:37)
[2016-09-23] MEDS: LACTOBACILLUS ACIDOPHILUS 1 EACH TAB (FP) PO SCH (10:02)
[2016-09-23] MEDS: DIVALPROEX SODIUM 250 MG TABLET E.C. (FP) PO SCH ×2 (10:02→22:39)
[2016-09-23] MEDS: levETIRAcetam XR 500 MG TAB PO SCH (10:02)
[2016-09-23] MEDS: HEPARIN NA (PORCINE) 5,000 UNITS/ML 1ML VIAL SQ SCH ×2 (10:03→22:37)
--- NOTE | 2016-09-23 12:22 | PN ---
Progress Note, Physician History of Present Illness: No c/o limb pain Having diarrhea No c/o abdominal pain No fever/ chills - Current Medication List Current Medications: Active Medications Acetaminophen (Tylenol -) 650 mg PO Q4H PRN PRN Reason: FEVER OR PAIN Last Admin: 09/23/16 10:00 Dose: 650 mg Ascorbic Acid (Vitamin C -) 500 mg PO DAILY [facility] Last Admin: 09/23/16 10:00 Dose: 500 mg Atorvastatin Calcium (Lipitor -) 20 mg PO HS [facility] Last Admin: 09/22/16 22:17 Dose: 20 mg Calcitriol (Rocaltrol -) 0.25 mcg PO DAILY [facility] Last Admin: 09/23/16 10:00 Dose: 0.25 mcg Carvedilol (Coreg -) 6.25 mg PO BID [facility] Last Admin: 09/23/16 10:02 Dose: 6.25 mg Citalopram Hydrobromide (Celexa -) 20 mg PO DAILY [facility] Last Admin: 09/23/16 10:00 Dose: 20 mg Clopidogrel Bisulfate (Plavix -) 75 mg PO DAILY [facility] Last Admin: 09/23/16 10:00 Dose: 75 mg Divalproex Sodium (Depakote -) 250 mg PO BID [facility] Last Admin: 09/23/16 10:02 Dose: 250 mg Heparin Sodium (Porcine) (Heparin -) 5,000 unit SQ BID [facility] Last Admin: 09/23/16 10:03 Dose: Not Given Ampicillin Sodium/Sulbactam Sodium (Unasyn 1.5 Gm (Pre-Docked)) 100 mls @ 200 mls/hr IVPB Q8H-IV [facility] Last Admin: 09/23/16 10:00 Dose: 200 mls/hr Insulin Aspart (Novolog Vial Sliding Scale -) 1 vial SQ ACHS [facility] PRN Reason: Protocol Last Admin: 09/23/16 12:08 Dose: Not Given Insulin Detemir (Levemir Vial) 10 units SQ BIDI [facility] Last Admin: 09/23/16 07:06 Dose: Not Given Lactobacillus Acidophilus (Bacid -) 1 tab PO DAILY [facility] Last Admin: 09/23/16 10:02 Dose: 1 tab Levetiracetam (Keppra Xr -) 500 mg PO DAILY [facility] Last Admin: 09/23/16 10:02 Dose: 500 mg Oxycodone HCl (Roxicodone -) 5 mg PO Q6H PRN PRN Reason: PAIN LEVEL 1-5 Last Admin: 09/23/16 10:01 Dose: 5 mg Potassium Chloride (K-Dur -) 20 meq PO DAILY [facility] Last Admin: 09/23/16 10:00 Dose: 20 meq Sevelamer Carbonate (Renvela -) 800 mg PO TIDCM [facility] Last Admin: 09/23/16 12:08 Dose: Not Given - Objective Vital Signs: Vital Signs Temperature 98.4 F 09/23/16 10:00 Pulse Rate 71 09/23/16 10:00 Respiratory Rate 16 09/23/16 10:00 Blood Pressure 116/62 09/23/16 10:00 O2 Sat by Pulse Oximetry (%) 98 09/22/16 21:00 Constitutional: Yes: No Distress Eyes: Yes: Conjunctiva Clear Cardiovascular: Yes: Regular Rate and Rhythm, S1, S2 Respiratory: Yes: CTA Bilaterally Gastrointestinal: Yes: Normal Bowel Sounds, Soft. No: Tenderness Extremities: Yes: Other (s/p BKA) Labs: CBC, BMP 09/23/16 06:15 09/23/16 06:15 INR, PTT INR 1.36 (0.82-1.09) H 09/14/16 06:00 Assessment/Plan POD #4 BKA Enterococcal bacteremia/ sepsis Azotemia Diarrhea Continue Unasyn- Complete additional 4 days Check stool C difficile Local wound care
--- NOTE | 2016-09-23 13:30 | PN ---
Progress Note, Physician Chief Complaint: Seen in his bed. Very irritable. Refusing all his medications. Attempts at getting out of bed failed . To try again later. Refusing to eat. Tendency for Hypoglycemia. IV antibiotics infusing. Maintains good urine output. - Current Medication List Current Medications: Active Medications Acetaminophen (Tylenol -) 650 mg PO Q4H PRN PRN Reason: FEVER OR PAIN Last Admin: 09/23/16 10:00 Dose: 650 mg Ascorbic Acid (Vitamin C -) 500 mg PO DAILY [facility] Last Admin: 09/23/16 10:00 Dose: 500 mg Atorvastatin Calcium (Lipitor -) 20 mg PO HS [facility] Last Admin: 09/22/16 22:17 Dose: 20 mg Calcitriol (Rocaltrol -) 0.25 mcg PO DAILY [facility] Last Admin: 09/23/16 10:00 Dose: 0.25 mcg Carvedilol (Coreg -) 6.25 mg PO BID [facility] Last Admin: 09/23/16 10:02 Dose: 6.25 mg Citalopram Hydrobromide (Celexa -) 20 mg PO DAILY [facility] Last Admin: 09/23/16 10:00 Dose: 20 mg Clopidogrel Bisulfate (Plavix -) 75 mg PO DAILY [facility] Last Admin: 09/23/16 10:00 Dose: 75 mg Divalproex Sodium (Depakote -) 250 mg PO BID [facility] Last Admin: 09/23/16 10:02 Dose: 250 mg Heparin Sodium (Porcine) (Heparin -) 5,000 unit SQ BID [facility] Last Admin: 09/23/16 10:03 Dose: Not Given Ampicillin Sodium/Sulbactam Sodium (Unasyn 1.5 Gm (Pre-Docked)) 100 mls @ 200 mls/hr IVPB Q8H-IV [facility] Last Admin: 09/23/16 10:00 Dose: 200 mls/hr Insulin Aspart (Novolog Vial Sliding Scale -) 1 vial SQ ACHS [facility] PRN Reason: Protocol Last Admin: 09/23/16 12:08 Dose: Not Given Insulin Detemir (Levemir Vial) 10 units SQ BIDI [facility] Last Admin: 09/23/16 07:06 Dose: Not Given Lactobacillus Acidophilus (Bacid -) 1 tab PO DAILY [facility] Last Admin: 09/23/16 10:02 Dose: 1 tab Levetiracetam (Keppra Xr -) 500 mg PO DAILY [facility] Last Admin: 09/23/16 10:02 Dose: 500 mg Oxycodone HCl (Roxicodone -) 5 mg PO Q6H PRN PRN Reason: PAIN LEVEL 1-5 Last Admin: 09/23/16 10:01 Dose: 5 mg Potassium Chloride (K-Dur -) 20 meq PO DAILY [facility] Last Admin: 09/23/16 10:00 Dose: 20 meq Sevelamer Carbonate (Renvela -) 800 mg PO TIDCM [facility] Last Admin: 09/23/16 12:08 Dose: Not Given - Objective Vital Signs: Vital Signs Temperature 98.4 F 09/23/16 10:00 Pulse Rate 71 09/23/16 10:00 Respiratory Rate 16 09/23/16 10:00 Blood Pressure 116/62 09/23/16 10:00 O2 Sat by Pulse Oximetry (%) 98 09/22/16 21:00 Constitutional: Yes: Mild Distress (pain) Eyes: Yes: WNL HENT: Yes: WNL Neck: Yes: Supple Cardiovascular: Yes: S1, S2. No: Gallop, Murmur Respiratory: Yes: Regular, CTA Bilaterally, Diminished Gastrointestinal: Yes: Abdomen, Obese (diarrhea), Other (diarrhea) Extremities: Yes: Amputation (right TMA and left BKA) Labs: CBC, BMP 09/23/16 06:15 09/23/16 06:15 INR, PTT INR 1.36 (0.82-1.09) H 09/14/16 06:00 Problem List - Problems (1) RUBY (acute kidney injury) Code(s): N17.9 - ACUTE KIDNEY FAILURE, UNSPECIFIED (2) CHF exacerbation Code(s): I50.9 - HEART FAILURE, UNSPECIFIED Qualifiers: Congestive heart failure type: unspecified congestive heart failure type Qualified Code(s): I50.9 - Heart failure, unspecified (3) Cellulitis and abscess of foot Code(s): L03.119 - CELLULITIS OF UNSPECIFIED PART OF LIMB L02.619 - CUTANEOUS ABSCESS OF UNSPECIFIED FOOT (4) Diabetic foot infection Code(s): E11.69 - TYPE 2 DIABETES MELLITUS WITH OTHER SPECIFIED COMPLICATION L08.9 - LOCAL INFECTION OF THE SKIN AND SUBCUTANEOUS TISSUE, UNSP (5) Edema Code(s): R60.9 - EDEMA, UNSPECIFIED (6) 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 complication Code(s): E11.29 - TYPE 2 DIABETES MELLITUS W OTH DIABETIC KIDNEY COMPLICATION (7) Diabetic foot ulcer Code(s): E11.621 - TYPE 2 DIABETES MELLITUS WITH FOOT ULCER L97.509 - NON-PRESSURE CHRONIC ULCER OTH PRT UNSP FOOT W UNSP SEVERITY Qualifiers: Diabetic foot ulcer location: midfoot Diabetes mellitus type: other specified (including KEREN) Laterality: left Non-pressure ulcer stage: unspecified non-pressure ulcer stage Qualified Code(s): E13.621 - Other specified diabetes mellitus with foot ulcer; L97.409 - Non-pressure chronic ulcer of unspecified heel and midfoot with unspecified severity (8) Diabetic neuropathy Code(s): E11.40 - TYPE 2 DIABETES MELLITUS WITH DIABETIC NEUROPATHY, UNSP Qualifiers: Diabetes mellitus type: other specified (including KEREN) Diabetes mellitus complication detail: diabetic polyneuropathy Qualified Code(s): E13.42 - Other specified diabetes mellitus with diabetic polyneuropathy (9) Acute kidney failure Code(s): N17.9 - ACUTE KIDNEY FAILURE, UNSPECIFIED (10) Chronic kidney disease (CKD) stage G3a/A2, moderately decreased glomerular filtration rate (GFR) between 45-59 mL/min/1.73 square meter and albuminuria creatinine ratio between 30-299 mg/g Code(s): N18.3 - CHRONIC KIDNEY DISEASE, STAGE 3 (MODERATE) Assessment/Plan The patient's renal functions are fairly stable. Discussed with him about the need for food intake. " Please don't talk about it now, doc". Concur with the current management IV abx to continue Will monitor the renal functions with you. Thanks again. Maria R Hidalgo MD
--- NOTE | 2016-09-23 13:56 | PATH ---
Surgical Pathology Report Patient Name: MARCIN BIGGS III Med. Rec. #: [id number] /Age/Gender: 1955 (Age: 61) / M Account: [id number] Location: [facility] MED/SURG Taken: 09/19/2016 Received: 09/20/2016 Reported: 09/23/2016 Physicians: Layo Aguillon Specimen(s) Received LEFT LEG BELOW KNEE AMPUTATION Clinical History Wound infection, diabetic neuropathy, gangrene left foot Final Diagnosis LEG, LEFT, BELOW KNEE AMPUTATION: ULCERATED AND NECROTIC SKIN AND UNDERLYING SOFT TISSUE WITH ACUTE AND CHRONIC INFLAMMATION AND FOCI OF GANGRENOUS NECROSIS. UNDERLYING BONE WITH ACUTE AND CHRONIC OSTEOMYELITIS. ARTERIES WITH SEGMENTAL CALCIFIC ATHEROSCLEROSIS WITH CALCIFIED PLAQUES AND FOCAL THROMBI IN THE POSTERIOR TIBIAL ARTERY WITH UP TO 90% OF SEGMENTAL LUMINAL OCCLUSION. SKIN AND SOFT TISSUE AT RESECTION MARGIN APPEAR VIABLE WITH A CHRONIC ISCHEMIC CHANGES AND CALCIFICATIONS IN VASCULAR RAMEY BONE AT RESECTION MARGIN APPEARS VIABLE. Electronically Signed Jonn Leblanc M.D. Gross Description Received fresh labeled "left leg below knee amputation" is a 33 cm in length left below knee amputation specimen. The distal foot appears to have been previously amputated. The stump is unremarkable. There is a 5.5 cm in length exposed portion of tibia and an 11 cm in length exposed portion of fibula at the proximal aspect of the specimen. The epidermal surface displays a 7.5 x 6.8 cm ulcerated lesion on the lateral aspect of the proximal foot with an exposed portion of underlying bone. The lesion appears to involve the underlying bone. Sectioning of the vasculature displays focal, segmental moderate atherosclerosis. Power Barker sections are submitted in 8 cassettes as follows: 1-lateral foot lesion; 2-bone underlying lesion, following decalcification; 3-stump; 4-bone marrow from margin, following decalcification; 5-skin and soft tissue margin; 6-anterior tibial artery; 7-posterior tibial artery; 8-dorsalis pedis. 09/20/201609/20/2016
[2016-09-23] MEDS ORDERED: INSULIN DETEMIR 100 UNITS/ML MDV SQ ONE (16:45)
[2016-09-23] MEDS ORDERED: PT OWN MED DRAWER 7, Y5N ONE (22:36)
[2016-09-23] MEDS: ATORVASTATIN CA 20 MG TABLET (FP) PO SCH (22:37)
[2016-09-24] MEDS: AMPICILLIN NA/SULBACTAM NA 100 ML IVPB SCH ×3 (01:27→17:37)
[2016-09-24] MEDS: INSULIN DETEMIR 100 UNITS/ML MDV SQ SCH ×2 (06:35→17:13)
[2016-09-24] MEDS: INSULIN SLIDING SCALE (NOVOLOG) 1 VIAL SQ SCH ×4 (06:36→23:50)
[2016-09-24 08:18] LABS: ALBUMIN 1.3 g/dl (3.4-5.0); CALCIUM 7.5 mg/dL (8.5-10.1); COCKROFT - GAULT 71.55; CREATININE 1.4 mg/dL (0.7-1.3)
[2016-09-24 08:21] LABS: BILIRUBIN,TOTAL 0.4 mg/dL (0.2-1.0); TOT PROT 4.6 g/dl (6.4-8.2)
--- NOTE | 2016-09-24 08:36 | PN ---
Progress Note, Physician History of Present Illness: s/p left bka c/o diarrhea - Current Medication List Current Medications: Active Medications Acetaminophen (Tylenol -) 650 mg PO Q4H PRN PRN Reason: FEVER OR PAIN Last Admin: 09/23/16 17:19 Dose: 650 mg Ascorbic Acid (Vitamin C -) 500 mg PO DAILY [facility] Last Admin: 09/23/16 10:00 Dose: 500 mg Atorvastatin Calcium (Lipitor -) 20 mg PO HS [facility] Last Admin: 09/23/16 22:37 Dose: 20 mg Calcitriol (Rocaltrol -) 0.25 mcg PO DAILY [facility] Last Admin: 09/23/16 10:00 Dose: 0.25 mcg Carvedilol (Coreg -) 6.25 mg PO BID [facility] Last Admin: 09/23/16 22:37 Dose: 6.25 mg Citalopram Hydrobromide (Celexa -) 20 mg PO DAILY [facility] Last Admin: 09/23/16 10:00 Dose: 20 mg Clopidogrel Bisulfate (Plavix -) 75 mg PO DAILY [facility] Last Admin: 09/23/16 10:00 Dose: 75 mg Divalproex Sodium (Depakote -) 250 mg PO BID [facility] Last Admin: 09/23/16 22:39 Dose: 250 mg Heparin Sodium (Porcine) (Heparin -) 5,000 unit SQ BID [facility] Last Admin: 09/23/16 22:37 Dose: 5,000 unit Ampicillin Sodium/Sulbactam Sodium (Unasyn 1.5 Gm (Pre-Docked)) 100 mls @ 200 mls/hr IVPB Q8H-IV [facility] Last Admin: 09/24/16 01:27 Dose: 200 mls/hr Insulin Aspart (Novolog Vial Sliding Scale -) 1 vial SQ ACHS [facility] PRN Reason: Protocol Last Admin: 09/24/16 06:36 Dose: Not Given Insulin Detemir (Levemir Vial) 10 units SQ BIDI [facility] Last Admin: 09/24/16 06:35 Dose: 10 units Lactobacillus Acidophilus (Bacid -) 1 tab PO DAILY [facility] Last Admin: 09/23/16 10:02 Dose: 1 tab Levetiracetam (Keppra Xr -) 500 mg PO DAILY [facility] Last Admin: 09/23/16 10:02 Dose: 500 mg Oxycodone HCl (Roxicodone -) 5 mg PO Q6H PRN PRN Reason: PAIN LEVEL 1-5 Last Admin: 09/23/16 17:20 Dose: 5 mg Potassium Chloride (K-Dur -) 20 meq PO DAILY [facility] Last Admin: 09/23/16 10:00 Dose: 20 meq Sevelamer Carbonate (Renvela -) 800 mg PO TIDCM [facility] Last Admin: 09/23/16 17:21 Dose: 800 mg - Objective Vital Signs: Vital Signs Temperature 97.5 F L 09/24/16 06:00 Pulse Rate 68 09/24/16 06:00 Respiratory Rate 20 09/24/16 06:00 Blood Pressure 112/59 09/24/16 06:00 O2 Sat by Pulse Oximetry (%) 97 09/23/16 21:00 Cardiovascular: Yes: Regular Rate and Rhythm Respiratory: Yes: Regular, CTA Bilaterally Gastrointestinal: Yes: Normal Bowel Sounds, Soft Extremities: Yes: Amputation Wound/Incision: Yes: Dressing Dry and Intact Labs: CBC, BMP 09/23/16 06:15 INR, PTT INR 1.36 (0.82-1.09) H 09/14/16 06:00 Problem List - Problems (1) Diabetic foot infection Code(s): E11.69 - TYPE 2 DIABETES MELLITUS WITH OTHER SPECIFIED COMPLICATION L08.9 - LOCAL INFECTION OF THE SKIN AND SUBCUTANEOUS TISSUE, UNSP (2) RUBY (acute kidney injury) Code(s): N17.9 - ACUTE KIDNEY FAILURE, UNSPECIFIED (3) CHF exacerbation Assessment/Plan: LASIX CARDIO on case Code(s): I50.9 - HEART FAILURE, UNSPECIFIED Qualifiers: Congestive heart failure type: unspecified congestive heart failure type Qualified Code(s): I50.9 - Heart failure, unspecified (4) 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 complication Code(s): E11.29 - TYPE 2 DIABETES MELLITUS W OTH DIABETIC KIDNEY COMPLICATION (5) Edema Code(s): R60.9 - EDEMA, UNSPECIFIED (6) Enterococcal bacteremia Assessment/Plan: ON UNASYN--3 more days ID FOLLOW UP Code(s): R78.81 - BACTEREMIA (7) Hx of BKA Assessment/Plan: Operative Date: 09/19/16 Pre-Operative Diagnosis: Left foot gangrene Operation: Left BKA Post-Operative Diagnosis: Same as Pre-op Surgeon: Layo Aguillon Code(s): Z89.519 - ACQUIRED ABSENCE OF UNSPECIFIED LEG BELOW KNEE (8) CAD (coronary artery disease) Assessment/Plan: NO CP SAME MEDS Code(s): I25.10 - ATHSCL HEART DISEASE OF [place] CORONARY ARTERY W/O ANG PCTRS (9) Chronic kidney disease, stage 3 (moderate) Assessment/Plan: MONITOR ON CURRENT MEDS Code(s): N18.3 - CHRONIC KIDNEY DISEASE, STAGE 3 (MODERATE) (10) Anemia Assessment/Plan: AWAIT REPEAT Code(s): D64.9 - ANEMIA, UNSPECIFIED Assessment/Plan D C PLAN D/W PT--AGREES TO SNF--BEE
[2016-09-24] MEDS ORDERED: PT OWN MED DRAWER 7, Y5N ONE (09:26)
[2016-09-24] MEDS: CALCITRIOL 0.25 MCG CAPSULE (FP) PO SCH ×2 (09:39→12:17)
[2016-09-24] MEDS: CLOPIDOGREL BISULFATE 75 MG TABLET (FP) PO SCH ×2 (09:39→12:17)
[2016-09-24] MEDS: SEVELAMER CARBONATE 800 MG TAB (FP) PO SCH ×4 (09:39→17:37)
[2016-09-24] MEDS: HEPARIN NA (PORCINE) 5,000 UNITS/ML 1ML VIAL SQ SCH ×3 (09:39→23:50)
[2016-09-24] MEDS: LACTOBACILLUS ACIDOPHILUS 1 EACH TAB (FP) PO SCH ×2 (09:40→12:16)
[2016-09-24] MEDS: ASCORBIC ACID 500 MG TABLET (FP) PO SCH ×2 (09:40→12:19)
[2016-09-24] MEDS: POTASSIUM CHLORIDE TABS 20 MEQ TABLET.ER (FP) PO SCH ×2 (09:40→12:17)
[2016-09-24] MEDS: CITALOPRAM HYDROBROMIDE 20 MG TABLET (FP) PO SCH ×2 (09:40→12:16)
[2016-09-24] MEDS: DIVALPROEX SODIUM 250 MG TABLET E.C. (FP) PO SCH ×3 (09:41→23:50)
[2016-09-24] MEDS: levETIRAcetam XR 500 MG TAB PO SCH ×2 (09:41→12:17)
--- NOTE | 2016-09-24 10:30 | PN ---
Progress Note (short form) - Note Progress Note: Vascular Surgery Pt seen and examined. Left BKA dressing changed. Staple line is intact with some bruising. Will place bacitracin to staple line with xeroform Cont knee immobilizer. Will remove naresh in 2 weeks. Will cont to follow Layo Aguillon DO
[2016-09-24] MEDS: CARVEDILOL 6.25 MG TABLET (FP) PO SCH ×2 (12:14→23:50)
--- NOTE | 2016-09-24 16:10 | PN ---
Progress Note (short form) - Note Progress Note: Renal Follow up for CKD Pt seen and examined at the bedside has pain in the leg but is mild and does not require medications refusing meds as per nurse pt not eating well, report that he has no appetite Vital Signs Temperature 97.5 F L 09/24/16 06:00 Pulse Rate 68 09/24/16 10:00 Respiratory Rate 18 09/24/16 10:00 Blood Pressure 99/57 09/24/16 10:00 O2 Sat by Pulse Oximetry (%) 97 09/23/16 21:00 Intake & Output 09/21/16 09/22/16 09/23/16 09/24/16 23:59 23:59 23:59 23:59 Intake Total 1100 1100 1250 250 Output Total 1200 350 550 200 Balance -100 750 700 50 Weight 200 lb 9 oz 203 lb 5 oz 201 lb 6.4 oz 206 lb 8 oz Gen: NAD CVS: RRR Lungs: No rales, wheeze (anterior exam) Abd: soft NT Et: L BKA, no sacral edema CBC, BMP 09/23/16 06:15 09/24/16 06:15 Laboratory Tests 09/24/16 06:15 Calcium 7.5 L Albumin 1.3 L Current Medications Acetaminophen (Tylenol -) 650 mg PO Q4H PRN PRN Reason: FEVER OR PAIN Last Admin: 09/23/16 17:19 Dose: 650 mg Ascorbic Acid (Vitamin C -) 500 mg PO DAILY [facility] Last Admin: 09/24/16 12:19 Dose: Not Given Atorvastatin Calcium (Lipitor -) 20 mg PO HS [facility] Last Admin: 09/23/16 22:37 Dose: 20 mg Bacitracin (Bacitracin -) 1 applic TP DAILY [facility] Calcitriol (Rocaltrol -) 0.25 mcg PO DAILY [facility] Last Admin: 09/24/16 12:17 Dose: Not Given Carvedilol (Coreg -) 6.25 mg PO BID [facility] Last Admin: 09/24/16 12:14 Dose: Not Given Citalopram Hydrobromide (Celexa -) 20 mg PO DAILY [facility] Last Admin: 09/24/16 12:16 Dose: Not Given Clopidogrel Bisulfate (Plavix -) 75 mg PO DAILY [facility] Last Admin: 09/24/16 12:17 Dose: Not Given Divalproex Sodium (Depakote -) 250 mg PO BID [facility] Last Admin: 09/24/16 12:16 Dose: Not Given Heparin Sodium (Porcine) (Heparin -) 5,000 unit SQ BID [facility] Last Admin: 09/24/16 12:16 Dose: Not Given Ampicillin Sodium/Sulbactam Sodium (Unasyn 1.5 Gm (Pre-Docked)) 100 mls @ 200 mls/hr IVPB Q8H-IV [facility] Last Admin: 09/24/16 09:42 Dose: 200 mls/hr Insulin Aspart (Novolog Vial Sliding Scale -) 1 vial SQ ACHS [facility] PRN Reason: Protocol Last Admin: 09/24/16 12:14 Dose: Not Given Insulin Detemir (Levemir Vial) 10 units SQ BIDI [facility] Last Admin: 09/24/16 06:35 Dose: 10 units Lactobacillus Acidophilus (Bacid -) 1 tab PO DAILY [facility] Last Admin: 09/24/16 12:16 Dose: Not Given Levetiracetam (Keppra Xr -) 500 mg PO DAILY [facility] Last Admin: 09/24/16 12:17 Dose: Not Given Oxycodone HCl (Roxicodone -) 5 mg PO Q6H PRN PRN Reason: PAIN LEVEL 1-5 Last Admin: 09/23/16 17:20 Dose: 5 mg Potassium Chloride (K-Dur -) 20 meq PO DAILY [facility] Last Admin: 09/24/16 12:17 Dose: Not Given Sevelamer Carbonate (Renvela -) 800 mg PO TIDCM [facility] Last Admin: 09/24/16 12:16 Dose: Not Given A/P 61 year old Gentleman with PMhx of RUBY (ATN with peak Cr of 4.7), CKD, CAD, CHF , PVD, IDDM with LE wound and found to have Cr of 2.1 and Na of 126. #CKD Stage 3 Renal function stable at this time Trend BUN/cr #Pseduohypocalcemia Corrected Ca is WNL continue Calcitrol #LE cellulitis/Wound infection/Sepsis/Enterococcus Bactermia on Ampacillin Repeat cultures w/o growth IVF to keep MAP > 65 s/p BKA wound care Daniel Cid DO
[2016-09-24] MEDS: BACITRACIN 30 GM TUBE TOPICAL OINTMENT TP SCH (17:11)
--- NOTE | 2016-09-24 19:13 | CON.PSY ---
Psychiatry Consult Chief Complaint: I dont want to talk to you. Symptoms: reports: Anorexic Behavior, Inability to Control Temper, Aggressivity - Previous Psychiatric Treatment Outpatient: None Inpatient: None - Previous Substance Abuse Treatment Outpatient: None Inpatient: None - Current Medications Current Medications: Active Medications Acetaminophen (Tylenol -) 650 mg PO Q4H PRN PRN Reason: FEVER OR PAIN Last Admin: 09/23/16 17:19 Dose: 650 mg Ascorbic Acid (Vitamin C -) 500 mg PO DAILY [facility] Last Admin: 09/24/16 12:19 Dose: Not Given Atorvastatin Calcium (Lipitor -) 20 mg PO HS [facility] Last Admin: 09/23/16 22:37 Dose: 20 mg Bacitracin (Bacitracin -) 1 applic TP DAILY [facility] Last Admin: 09/24/16 17:11 Dose: Not Given Calcitriol (Rocaltrol -) 0.25 mcg PO DAILY [facility] Last Admin: 09/24/16 12:17 Dose: Not Given Carvedilol (Coreg -) 6.25 mg PO BID [facility] Last Admin: 09/24/16 12:14 Dose: Not Given Citalopram Hydrobromide (Celexa -) 20 mg PO DAILY [facility] Last Admin: 09/24/16 12:16 Dose: Not Given Clopidogrel Bisulfate (Plavix -) 75 mg PO DAILY [facility] Last Admin: 09/24/16 12:17 Dose: Not Given Divalproex Sodium (Depakote -) 250 mg PO BID [facility] Last Admin: 09/24/16 12:16 Dose: Not Given Heparin Sodium (Porcine) (Heparin -) 5,000 unit SQ BID [facility] Last Admin: 09/24/16 12:16 Dose: Not Given Ampicillin Sodium/Sulbactam Sodium (Unasyn 1.5 Gm (Pre-Docked)) 100 mls @ 200 mls/hr IVPB Q8H-IV [facility] Last Admin: 09/24/16 17:37 Dose: 200 mls/hr Insulin Aspart (Novolog Vial Sliding Scale -) 1 vial SQ ACHS [facility] PRN Reason: Protocol Last Admin: 09/24/16 17:13 Dose: Not Given Insulin Detemir (Levemir Vial) 10 units SQ BIDI [facility] Last Admin: 09/24/16 17:13 Dose: Not Given Lactobacillus Acidophilus (Bacid -) 1 tab PO DAILY [facility] Last Admin: 09/24/16 12:16 Dose: Not Given Levetiracetam (Keppra Xr -) 500 mg PO DAILY [facility] Last Admin: 09/24/16 12:17 Dose: Not Given Oxycodone HCl (Roxicodone -) 5 mg PO Q6H PRN PRN Reason: PAIN LEVEL 1-5 Last Admin: 09/23/16 17:20 Dose: 5 mg Potassium Chloride (K-Dur -) 20 meq PO DAILY [facility] Last Admin: 09/24/16 12:17 Dose: Not Given Sevelamer Carbonate (Renvela -) 800 mg PO TIDCM [facility] Last Admin: 09/24/16 17:37 Dose: Not Given - Allergies Allergies: Allergies Allergy/AdvReac Type Severity Reaction Status Date / Time banana Allergy Verified 09/13/16 09:29 No Known Drug Allergies Allergy Verified 09/13/16 09:29 - Current Living Status Usual Living Arrangement: Alone - Current Mental Status Evaluation Appearance: Disheveled Attitude: Uncooperative - Affect Affect: Constrictive Appropriateness: Not Appropriate - Mood Mood: Angry - Speech/Language Expressive: Coherent - Psychomotor Activity Psychomotor Activity: Hyperactive - Thought Process Thought Process: Intact - Thought Content Hallucinations: Absent Delusions: Absent - Self Perception Self Perception: No Impairment - Cognition Attention: Alert Orientation: Time Memory, Immediate Recall: Intact Memory, Short Term: 2/3 Memory, Remote with Promptin/3 - Concentration Serial Sevens Intact: No Simple Calculations Intact: No - Abstraction Proverb Interpretation: Impaired Judgement: Minimally Impaired - Insight Insight: Impaired - Impulse Control Impulse Control: Good Control - Suicidal Ideation Suicidal Ideation: No - Homicidal Ideation Homicidal Ideation: No Assessment/Plan 1) sTART rEMERON 15MG PO HS 2) CONTINUE WITH dEPAKOTE
[2016-09-24] MEDS: DEXTROSE 5%-0.45% SALINE 1,000 ML IV SCH (19:30)
[2016-09-24] MEDS: oxyCODONE HCL 5 MG TABLET PO PRN (23:50)
[2016-09-24] MEDS: MIRTAZAPINE 15 MG TABLET (FP) PO SCH (23:50)
[2016-09-24] MEDS: ATORVASTATIN CA 20 MG TABLET (FP) PO SCH (23:50)
[2016-09-25] MEDS: AMPICILLIN NA/SULBACTAM NA 100 ML IVPB SCH ×3 (01:09→18:00)
[2016-09-25] MEDS: INSULIN SLIDING SCALE (NOVOLOG) 1 VIAL SQ SCH ×4 (07:02→22:21)
[2016-09-25] MEDS: INSULIN DETEMIR 100 UNITS/ML MDV SQ SCH ×2 (07:02→18:04)
[2016-09-25] MEDS: SEVELAMER CARBONATE 800 MG TAB (FP) PO SCH ×2 (08:10→10:11)
--- NOTE | 2016-09-25 08:16 | PN ---
Progress Note, Physician History of Present Illness: s/p left bka POOR APPETITE--D/W PT AT [facility]--WILL TRY SUPPLEMENTS - Current Medication List Current Medications: Active Medications Acetaminophen (Tylenol -) 650 mg PO Q4H PRN PRN Reason: FEVER OR PAIN Last Admin: 09/23/16 17:19 Dose: 650 mg Ascorbic Acid (Vitamin C -) 500 mg PO DAILY [facility] Last Admin: 09/24/16 12:19 Dose: Not Given Atorvastatin Calcium (Lipitor -) 20 mg PO HS [facility] Last Admin: 09/24/16 23:50 Dose: 20 mg Bacitracin (Bacitracin -) 1 applic TP DAILY [facility] Last Admin: 09/24/16 17:11 Dose: Not Given Calcitriol (Rocaltrol -) 0.25 mcg PO DAILY [facility] Last Admin: 09/24/16 12:17 Dose: Not Given Carvedilol (Coreg -) 6.25 mg PO BID [facility] Last Admin: 09/24/16 23:50 Dose: 6.25 mg Citalopram Hydrobromide (Celexa -) 20 mg PO DAILY [facility] Last Admin: 09/24/16 12:16 Dose: Not Given Clopidogrel Bisulfate (Plavix -) 75 mg PO DAILY [facility] Last Admin: 09/24/16 12:17 Dose: Not Given Divalproex Sodium (Depakote -) 250 mg PO BID [facility] Last Admin: 09/24/16 23:50 Dose: 250 mg Heparin Sodium (Porcine) (Heparin -) 5,000 unit SQ BID [facility] Last Admin: 09/24/16 23:50 Dose: 5,000 unit Ampicillin Sodium/Sulbactam Sodium (Unasyn 1.5 Gm (Pre-Docked)) 100 mls @ 200 mls/hr IVPB Q8H-IV [facility] Last Admin: 09/25/16 01:09 Dose: 200 mls/hr Dextrose/Sodium Chloride (D5-1/2ns -) 1,000 mls @ 50 mls/hr IV ASDIR [facility] Last Admin: 09/24/16 19:30 Dose: Not Given Insulin Aspart (Novolog Vial Sliding Scale -) 1 vial SQ ACHS [facility] PRN Reason: Protocol Last Admin: 09/25/16 07:02 Dose: Not Given Insulin Detemir (Levemir Vial) 10 units SQ BIDI [facility] Last Admin: 09/25/16 07:02 Dose: Not Given Lactobacillus Acidophilus (Bacid -) 1 tab PO DAILY [facility] Last Admin: 09/24/16 12:16 Dose: Not Given Levetiracetam (Keppra Xr -) 500 mg PO DAILY [facility] Last Admin: 09/24/16 12:17 Dose: Not Given Mirtazapine (Remeron -) 15 mg PO HS [facility] Last Admin: 09/24/16 23:50 Dose: 15 mg Oxycodone HCl (Roxicodone -) 5 mg PO Q6H PRN PRN Reason: PAIN LEVEL 1-5 Last Admin: 09/24/16 23:50 Dose: 5 mg Potassium Chloride (K-Dur -) 20 meq PO DAILY [facility] Last Admin: 09/24/16 12:17 Dose: Not Given Sevelamer Carbonate (Renvela -) 800 mg PO TIDCM [facility] Last Admin: 09/24/16 17:37 Dose: Not Given - Objective Vital Signs: Vital Signs Temperature 97.9 F 09/25/16 06:38 Pulse Rate 70 09/25/16 06:38 Respiratory Rate 20 09/25/16 06:38 Blood Pressure 126/65 09/25/16 06:38 O2 Sat by Pulse Oximetry (%) 98 09/24/16 21:00 Cardiovascular: Yes: Regular Rate and Rhythm Respiratory: Yes: Regular, CTA Bilaterally Gastrointestinal: Yes: Normal Bowel Sounds, Soft Labs: CBC, BMP 09/23/16 06:15 09/24/16 06:15 INR, PTT INR 1.36 (0.82-1.09) H 09/14/16 06:00 Problem List - Problems (1) Diabetic foot infection Code(s): E11.69 - TYPE 2 DIABETES MELLITUS WITH OTHER SPECIFIED COMPLICATION L08.9 - LOCAL INFECTION OF THE SKIN AND SUBCUTANEOUS TISSUE, UNSP (2) RUBY (acute kidney injury) Code(s): N17.9 - ACUTE KIDNEY FAILURE, UNSPECIFIED (3) CHF exacerbation Assessment/Plan: LASIX CARDIO on case Code(s): I50.9 - HEART FAILURE, UNSPECIFIED Qualifiers: Congestive heart failure type: unspecified congestive heart failure type Qualified Code(s): I50.9 - Heart failure, unspecified (4) 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 complication Assessment/Plan: BGM AND SS Code(s): E11.29 - TYPE 2 DIABETES MELLITUS W OTH DIABETIC KIDNEY COMPLICATION (5) Edema Assessment/Plan: DUPLEX NEGATIVE Code(s): R60.9 - EDEMA, UNSPECIFIED (6) Enterococcal bacteremia Assessment/Plan: ON UNASYN--2 more days ID FOLLOW UP Code(s): R78.81 - BACTEREMIA (7) Hx of BKA Assessment/Plan: Operative Date: 09/19/16 Pre-Operative Diagnosis: Left foot gangrene Operation: Left BKA Post-Operative Diagnosis: Same as Pre-op Surgeon: Layo Aguillon Code(s): Z89.519 - ACQUIRED ABSENCE OF UNSPECIFIED LEG BELOW KNEE (8) CAD (coronary artery disease) Assessment/Plan: NO CP SAME MEDS Code(s): I25.10 - ATHSCL HEART DISEASE OF [place] CORONARY ARTERY W/O ANG PCTRS (9) Chronic kidney disease, stage 3 (moderate) Assessment/Plan: MONITOR ON CURRENT MEDS Code(s): N18.3 - CHRONIC KIDNEY DISEASE, STAGE 3 (MODERATE) (10) Anemia Assessment/Plan: AWAIT REPEAT Code(s): D64.9 - ANEMIA, UNSPECIFIED (11) Poor nutrition Assessment/Plan: GLUCERNA DIETARY Code(s): E63.9 - NUTRITIONAL DEFICIENCY, UNSPECIFIED (12) Acute depression Assessment/Plan: REMERON PSYCH APPRECIATED Code(s): F32.9 - MAJOR DEPRESSIVE DISORDER, SINGLE EPISODE, UNSPECIFIED
[2016-09-25] MEDS: ACETAMINOPHEN 325 MG TABLET (FP) PO PRN ×2 (10:09→22:12)
[2016-09-25] MEDS: BACITRACIN 30 GM TUBE TOPICAL OINTMENT TP SCH (10:10)
[2016-09-25] MEDS: CITALOPRAM HYDROBROMIDE 20 MG TABLET (FP) PO SCH (10:10)
[2016-09-25] MEDS: ASCORBIC ACID 500 MG TABLET (FP) PO SCH (10:10)
[2016-09-25] MEDS: CALCITRIOL 0.25 MCG CAPSULE (FP) PO SCH (10:10)
[2016-09-25] MEDS: LACTOBACILLUS ACIDOPHILUS 1 EACH TAB (FP) PO SCH (10:10)
[2016-09-25] MEDS: oxyCODONE HCL 5 MG TABLET PO PRN ×2 (10:11→22:10)
[2016-09-25] MEDS: CARVEDILOL 6.25 MG TABLET (FP) PO SCH ×2 (10:11→21:41)
[2016-09-25] MEDS: DIVALPROEX SODIUM 250 MG TABLET E.C. (FP) PO SCH ×2 (10:11→21:42)
[2016-09-25] MEDS: CLOPIDOGREL BISULFATE 75 MG TABLET (FP) PO SCH (10:11)
[2016-09-25] MEDS: POTASSIUM CHLORIDE TABS 20 MEQ TABLET.ER (FP) PO SCH (10:11)
[2016-09-25] MEDS: levETIRAcetam XR 500 MG TAB PO SCH (10:12)
--- NOTE | 2016-09-25 11:55 | PN ---
Progress Note (short form) - Note Progress Note: Renal Follow up for CKD Pt seen and examined at the bedside no acute complaints not eating seen by psych yesterday, started on remeron Vital Signs Temperature 97.9 F 09/25/16 06:38 Pulse Rate 70 09/25/16 06:38 Respiratory Rate 20 09/25/16 06:38 Blood Pressure 126/65 09/25/16 06:38 O2 Sat by Pulse Oximetry (%) 98 09/24/16 21:00 Intake & Output 09/22/16 09/23/16 09/24/16 09/25/16 23:59 23:59 23:59 23:59 Intake Total 1100 1250 850 550 Output Total 350 550 400 600 Balance 750 700 450 -50 Weight 203 lb 5 oz 201 lb 6.4 oz 206 lb 8 oz 204 lb 4 oz Gen: NAD CVS: RRR Lungs: No rales, wheeze (anterior exam) Abd: soft NT Et: L BKA, no sacral edema CBC, BMP 09/23/16 06:15 09/24/16 06:15 Current Medications Acetaminophen (Tylenol -) 650 mg PO Q4H PRN PRN Reason: FEVER OR PAIN Last Admin: 09/25/16 10:09 Dose: 650 mg Ascorbic Acid (Vitamin C -) 500 mg PO DAILY [facility] Last Admin: 09/25/16 10:10 Dose: 500 mg Atorvastatin Calcium (Lipitor -) 20 mg PO HS [facility] Last Admin: 09/24/16 23:50 Dose: 20 mg Bacitracin (Bacitracin -) 1 applic TP DAILY [facility] Last Admin: 09/24/16 17:11 Dose: Not Given Calcitriol (Rocaltrol -) 0.25 mcg PO DAILY [facility] Last Admin: 09/25/16 10:10 Dose: 0.25 mcg Carvedilol (Coreg -) 6.25 mg PO BID [facility] Last Admin: 09/25/16 10:11 Dose: 6.25 mg Citalopram Hydrobromide (Celexa -) 20 mg PO DAILY [facility] Last Admin: 09/25/16 10:10 Dose: 20 mg Clopidogrel Bisulfate (Plavix -) 75 mg PO DAILY [facility] Last Admin: 09/25/16 10:11 Dose: 75 mg Divalproex Sodium (Depakote -) 250 mg PO BID [facility] Last Admin: 09/25/16 10:11 Dose: 250 mg Heparin Sodium (Porcine) (Heparin -) 5,000 unit SQ BID [facility] Last Admin: 09/24/16 23:50 Dose: 5,000 unit Ampicillin Sodium/Sulbactam Sodium (Unasyn 1.5 Gm (Pre-Docked)) 100 mls @ 200 mls/hr IVPB Q8H-IV [facility] Last Admin: 09/25/16 10:09 Dose: 200 mls/hr Dextrose/Sodium Chloride (D5-1/2ns -) 1,000 mls @ 50 mls/hr IV ASDIR [facility] Last Admin: 09/24/16 19:30 Dose: Not Given Insulin Aspart (Novolog Vial Sliding Scale -) 1 vial SQ ACHS [facility] PRN Reason: Protocol Last Admin: 09/25/16 07:02 Dose: Not Given Insulin Detemir (Levemir Vial) 10 units SQ BIDI [facility] Last Admin: 09/25/16 07:02 Dose: Not Given Lactobacillus Acidophilus (Bacid -) 1 tab PO DAILY [facility] Last Admin: 09/25/16 10:10 Dose: 1 tab Levetiracetam (Keppra Xr -) 500 mg PO DAILY [facility] Last Admin: 09/25/16 10:12 Dose: 500 mg Mirtazapine (Remeron -) 15 mg PO HS [facility] Last Admin: 09/24/16 23:50 Dose: 15 mg Oxycodone HCl (Roxicodone -) 5 mg PO Q6H PRN PRN Reason: PAIN LEVEL 1-5 Last Admin: 09/25/16 10:11 Dose: 5 mg Potassium Chloride (K-Dur -) 20 meq PO DAILY [facility] Last Admin: 09/25/16 10:11 Dose: 20 meq Sevelamer Carbonate (Renvela -) 800 mg PO TIDCM [facility] Last Admin: 09/25/16 10:11 Dose: 800 mg A/P 61 year old Gentleman with PMhx of RUBY (ATN with peak Cr of 4.7), CKD, CAD, CHF , PVD, IDDM with LE wound and found to have Cr of 2.1 and Na of 126. #CKD Stage 3 Renal function remains stable Continue to trend BUN/Cr and electrolytes d/c Renvela and KCL supplement #LE cellulitis/Wound infection/Sepsis/Enterococcus Bactermia on Ampacillin Repeat cultures w/o growth IVF to keep MAP > 65 s/p BKA wound care Daniel Cid DO
[2016-09-25] MEDS: HEPARIN NA (PORCINE) 5,000 UNITS/ML 1ML VIAL SQ SCH ×2 (13:20→21:43)
[2016-09-25] MEDS: DEXTROSE 5%-0.45% SALINE 1,000 ML IV SCH ×2 (17:59→19:42)
[2016-09-25] MEDS: MIRTAZAPINE 15 MG TABLET (FP) PO SCH (21:42)
[2016-09-25] MEDS: ATORVASTATIN CA 20 MG TABLET (FP) PO SCH (21:42)
[2016-09-26] MEDS: AMPICILLIN NA/SULBACTAM NA 100 ML IVPB SCH ×3 (01:35→17:46)
[2016-09-26] MEDS: INSULIN DETEMIR 100 UNITS/ML MDV SQ SCH ×2 (07:20→17:42)
[2016-09-26] MEDS: INSULIN SLIDING SCALE (NOVOLOG) 1 VIAL SQ SCH ×4 (07:20→21:31)
--- NOTE | 2016-09-26 07:44 | DS ---
Physical Examination Vital Signs: Vital Signs Temperature 98.7 F 09/25/16 22:00 Pulse Rate 79 09/26/16 06:00 Respiratory Rate 20 09/26/16 06:00 Blood Pressure 132/68 09/26/16 06:00 O2 Sat by Pulse Oximetry (%) 97 09/25/16 21:00 Cardiovascular: Yes: Regular Rate and Rhythm Respiratory: Yes: Regular, CTA Bilaterally Gastrointestinal: Yes: Normal Bowel Sounds, Soft. No: Tenderness Labs: CBC, BMP 09/23/16 06:15 09/24/16 06:15 Discharge Summary Reason For Visit: WOUND INFECTION,DIABETIC NEUROPATHY Current Active Problems RUBY (acute kidney injury) (Acute) Acute depression (Acute) CHF exacerbation (Acute) Cellulitis and abscess of foot (Acute) Diabetic foot infection (Acute) Edema (Acute) Elevated troponin I measurement (Acute) Enterococcal bacteremia (Acute) Glaucoma (Acute) Hx of BKA (Acute) Hyperglycemia (Acute) Hyponatremia (Acute) Poor nutrition (Acute) 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 complication (Acute) Wound infection (Acute) Diabetic foot ulcer (Chronic) Diabetic neuropathy (Chronic) Osteomyelitis (Chronic) Hospital Course: History of Present Illness: 61-year-old male, with a significant past medical history of HTN, HLD, CAD s/p CABG, ICM with chronic systolic CHF and multiple prior exacerbations, PAD with amputations, CKD, and anemia, who presents to the ED with fluid and blood drainage from left foot wound. 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 Pt also states that he has not been able to eat due to vomiting and diarrhea. - Past Medical History [employer] ME[employer]IC: Yes: Peripheral Neuropathy Cardiovascular: Yes: CAD (CABG 2009., stents x5), CHF, HTN Pulmonary: Yes: COPD Gastrointestinal: Yes: Constipation Psych: Yes: Anxiety, Depression Endocrine: Yes: Diabetes Mellitus - Past Surgical History Past Surgical History: Yes: Amputation (left TMT, right 1st and 2nd toes), CABG (2009 at [facility]) - Problems (1) Diabetic foot infection Code(s): E11.69 - TYPE 2 DIABETES MELLITUS WITH OTHER SPECIFIED COMPLICATION L08.9 - LOCAL INFECTION OF THE SKIN AND SUBCUTANEOUS TISSUE, UNSP (2) RUBY (acute kidney injury) Code(s): N17.9 - ACUTE KIDNEY FAILURE, UNSPECIFIED (3) CHF exacerbation Assessment/Plan: LASIX CARDIO on case Code(s): I50.9 - HEART FAILURE, UNSPECIFIED Qualifiers: Congestive heart failure type: unspecified congestive heart failure type Qualified Code(s): I50.9 - Heart failure, unspecified (4) 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 complication Assessment/Plan: BGM AND SS Code(s): E11.29 - TYPE 2 DIABETES MELLITUS W OTH DIABETIC KIDNEY COMPLICATION (5) Edema Assessment/Plan: DUPLEX NEGATIVE Code(s): R60.9 - EDEMA, UNSPECIFIED (6) Enterococcal bacteremia Assessment/Plan: ON UNASYN--2 more days ID FOLLOW UP Code(s): R78.81 - BACTEREMIA (7) Hx of BKA Assessment/Plan: Operative Date: 09/19/16 Pre-Operative Diagnosis: Left foot gangrene Operation: Left BKA Post-Operative Diagnosis: Same as Pre-op Surgeon: Layo Aguillon Code(s): Z89.519 - ACQUIRED ABSENCE OF UNSPECIFIED LEG BELOW KNEE (8) CAD (coronary artery disease) Assessment/Plan: NO CP SAME MEDS Code(s): I25.10 - ATHSCL HEART DISEASE OF [place] CORONARY ARTERY W/O ANG PCTRS (9) Chronic kidney disease, stage 3 (moderate) Assessment/Plan: MONITOR ON CURRENT MEDS Code(s): N18.3 - CHRONIC KIDNEY DISEASE, STAGE 3 (MODERATE) (10) Anemia Assessment/Plan: AWAIT REPEAT Code(s): D64.9 - ANEMIA, UNSPECIFIED (11) Poor nutrition Assessment/Plan: GLUCERNA DIETARY Code(s): E63.9 - NUTRITIONAL DEFICIENCY, UNSPECIFIED (12) Acute depression Assessment/Plan: REMERON PSYCH APPRECIATED Code(s): F32.9 - MAJOR DEPRESSIVE DISORDER, SINGLE EPISODE, UNSPECIFIED Condition: Stable - Instructions Disposition: NURSING HOME FACILITY - Home Medications Comprehensive Discharge Medication List: Ambulatory Orders Ascorbate Calcium [Vitamin C] 500 mg PO DAILY 06/22/16 Calcitriol [Calcitriol -] 0.25 mcg PO DAILY 06/22/16 Clopidogrel Bisulfate [Clopidogrel] 75 mg PO DAILY 06/22/16 Divalproex [Depakote -] 250 mg PO BID 06/22/16 Levetiracetam [Keppra Xr -] 500 mg PO DAILY 06/22/16 Sevelamer HCl [Renagel] 800 mg PO TID 06/22/16 Atorvastatin Ca [Lipitor] 20 mg PO HS #30 tablet 06/29/16 Acetaminophen [Tylenol .Regular Strength -] 650 mg PO Q4H PRN #0 tablet Bacitracin - [Bacitracin Topical Ointment -] 1 applic TP DAILY tube 09/26/16 Carvedilol [Coreg -] 6.25 mg PO BID tablet 09/26/16 Furosemide [Lasix -] 20 mg PO DAILY #30 tablet 09/26/16 Heparin - 5,000 unit SQ BID vial 09/26/16 Insulin (Levemir) [Levemir Vial] 10 units SQ BIDI #10 ml 09/26/16 Insulin Sliding Scale [Novolog Vial Sliding Scale -] 1 vial SQ ACHS units 09/26 Lactobacillus Acidophilus [Bacid -] 1 tab PO DAILY tab 09/26/16 Mirtazapine [Remeron -] 30 mg PO HS #60 tablet 09/26/16 Oxycodone HCl [Roxicodone -] 5 mg PO Q6H PRN #0 tablet MDD 4 09/26/16 Potassium Chloride [K-Dur -] 20 meq PO DAILY #30 tab 09/26/16
[2016-09-26 08:32] LABS: BASOPHIL 0.8 % (0-2.0); EOSINOPHIL 2.1 % (0-4.5); MCH 28.8 pg (25.7-33.7); MEAN PLT VOLUME 7.5 fl (7.5-11.1); NEUTROPHILS 65.7 % (42.8-82.8); PLATELET COUNT 129 K/MM3 (134-434); RDW 16.6 % (11.9-15.9); WHITE BLOOD COUNT 4.4 K/mm3 (4.0-10.0)
[2016-09-26 08:51] LABS: ALBUMIN 1.4 g/dl (3.4-5.0); ALK PHOS 95 U/L (45-117); ANION GAP 9 (8-16); BILIRUBIN,TOTAL 0.3 mg/dL (0.2-1.0); CALCIUM 7.1 mg/dL (8.5-10.1); CO2 24 mmol/L (21-32); COCKROFT - GAULT 84.16; CREATININE 1.2 mg/dL (0.7-1.3); GLUCOSE,RANDOM 136 mg/dL (74-106); MAGNESIUM 1.7 mg/dL (1.8-2.4); PHOSPHOROUS 3.1 mg/dL (2.5-4.9); SGOT/AST 15 U/L (15-37); SGPT/ALT 7 U/L (12-78); TOT PROT 4.6 g/dl (6.4-8.2)
[2016-09-26] MEDS: LACTOBACILLUS ACIDOPHILUS 1 EACH TAB (FP) PO SCH (11:36)
[2016-09-26] MEDS: CITALOPRAM HYDROBROMIDE 20 MG TABLET (FP) PO SCH (11:36)
[2016-09-26] MEDS: levETIRAcetam XR 500 MG TAB PO SCH (11:37)
[2016-09-26] MEDS: CARVEDILOL 6.25 MG TABLET (FP) PO SCH ×2 (11:37→21:31)
[2016-09-26] MEDS: DIVALPROEX SODIUM 250 MG TABLET E.C. (FP) PO SCH ×2 (11:37→21:31)
[2016-09-26] MEDS: ASCORBIC ACID 500 MG TABLET (FP) PO SCH (11:37)
[2016-09-26] MEDS: HEPARIN NA (PORCINE) 5,000 UNITS/ML 1ML VIAL SQ SCH ×2 (11:37→21:31)
[2016-09-26] MEDS: CALCITRIOL 0.25 MCG CAPSULE (FP) PO SCH (11:38)
[2016-09-26] MEDS: CLOPIDOGREL BISULFATE 75 MG TABLET (FP) PO SCH (11:38)
[2016-09-26] MEDS ORDERED: INSULIN (NOVOLOG) ASPART 100 UNITS/ML 10ML VIAL ONE ×2 (11:56→21:16)
--- NOTE | 2016-09-26 13:07 | PN ---
Progress Note (short form) - Note Progress Note: Renal Follow up for CKD Pt seen at the bedside awake and alert refusing exam denies any pain Vital Signs Temperature 98.7 F 09/25/16 22:00 Pulse Rate 79 09/26/16 06:00 Respiratory Rate 20 09/26/16 06:00 Blood Pressure 132/68 09/26/16 06:00 O2 Sat by Pulse Oximetry (%) 97 09/25/16 21:00 Intake & Output 09/23/16 09/24/16 09/25/16 09/26/16 23:59 23:59 23:59 23:59 Intake Total 4928 692 9274 Output Total 243 698 3684 Balance 627 869 2602 Weight 201 lb 6.4 oz 206 lb 8 oz 204 lb 4 oz 208 lb 3.2 oz refused physical exam CBC, BMP 09/26/16 07:45 09/26/16 07:45 Current Medications Acetaminophen (Tylenol -) 650 mg PO Q4H PRN PRN Reason: FEVER OR PAIN Last Admin: 09/25/16 22:12 Dose: 650 mg Ascorbic Acid (Vitamin C -) 500 mg PO DAILY [facility] Last Admin: 09/26/16 11:37 Dose: Not Given Atorvastatin Calcium (Lipitor -) 20 mg PO HS [facility] Last Admin: 09/25/16 21:42 Dose: 20 mg Bacitracin (Bacitracin -) 1 applic TP DAILY [facility] Last Admin: 09/25/16 10:10 Dose: Not Given Calcitriol (Rocaltrol -) 0.25 mcg PO DAILY [facility] Last Admin: 09/26/16 11:38 Dose: Not Given Carvedilol (Coreg -) 6.25 mg PO BID [facility] Last Admin: 09/26/16 11:37 Dose: Not Given Citalopram Hydrobromide (Celexa -) 20 mg PO DAILY [facility] Last Admin: 09/26/16 11:36 Dose: Not Given Clopidogrel Bisulfate (Plavix -) 75 mg PO DAILY [facility] Last Admin: 09/26/16 11:38 Dose: Not Given Divalproex Sodium (Depakote -) 250 mg PO BID [facility] Last Admin: 09/26/16 11:37 Dose: Not Given Heparin Sodium (Porcine) (Heparin -) 5,000 unit SQ BID [facility] Last Admin: 09/26/16 11:37 Dose: Not Given Ampicillin Sodium/Sulbactam Sodium (Unasyn 1.5 Gm (Pre-Docked)) 100 mls @ 200 mls/hr IVPB Q8H-IV [facility] Last Admin: 09/26/16 11:25 Dose: 200 mls/hr Insulin Aspart (Novolog Vial Sliding Scale -) 1 vial SQ ACHS [facility] PRN Reason: Protocol Last Admin: 09/26/16 11:37 Dose: Not Given Insulin Detemir (Levemir Vial) 10 units SQ BIDI [facility] Last Admin: 09/26/16 07:20 Dose: Not Given Lactobacillus Acidophilus (Bacid -) 1 tab PO DAILY [facility] Last Admin: 09/26/16 11:36 Dose: Not Given Levetiracetam (Keppra Xr -) 500 mg PO DAILY [facility] Last Admin: 09/26/16 11:37 Dose: Not Given Mirtazapine (Remeron -) 15 mg PO HS [facility] Last Admin: 09/25/16 21:42 Dose: 15 mg A/P 61 year old Gentleman with PMhx of RUBY (ATN with peak Cr of 4.7), CKD, CAD, CHF , PVD, IDDM with LE wound and found to have Cr of 2.1 and Na of 126. #CKD Stage 3 Renal function stable IVF discontinue this am #LE cellulitis/Wound infection/Sepsis/Enterococcus Bactermia on Ampacillin Repeat cultures w/o growth IVF to keep MAP > 65 s/p BKA wound care Daniel Cid DO
[2016-09-26] MEDS: BACITRACIN 30 GM TUBE TOPICAL OINTMENT TP SCH (17:41)
[2016-09-26 18:29] VITALS: TEMP 98.1
[2016-09-26] MEDS ORDERED: PT OWN MED DRAWER 7, Y5N ONE (21:17)
[2016-09-26] MEDS: MIRTAZAPINE 15 MG TABLET (FP) PO SCH (21:31)
[2016-09-26] MEDS: ATORVASTATIN CA 20 MG TABLET (FP) PO SCH (21:31)
[2016-09-27] MEDS: INSULIN DETEMIR 100 UNITS/ML MDV SQ SCH (06:21)
[2016-09-27] MEDS: INSULIN SLIDING SCALE (NOVOLOG) 1 VIAL SQ SCH ×2 (06:21→10:36)
--- NOTE | 2016-09-27 08:37 | DS ---
Physical Examination Vital Signs: Vital Signs Temperature 98.1 F 09/26/16 18:28 Pulse Rate 88 09/26/16 22:00 Respiratory Rate 18 09/26/16 22:00 Blood Pressure 134/71 09/26/16 22:00 O2 Sat by Pulse Oximetry (%) 97 09/26/16 21:00 Labs: CBC, BMP 09/26/16 07:45 09/26/16 07:45 Discharge Summary Reason For Visit: WOUND INFECTION,DIABETIC NEUROPATHY Current Active Problems RUBY (acute kidney injury) (Acute) Acute depression (Acute) CHF exacerbation (Acute) Cellulitis and abscess of foot (Acute) Diabetic foot infection (Acute) Edema (Acute) Elevated troponin I measurement (Acute) Enterococcal bacteremia (Acute) Glaucoma (Acute) Hx of BKA (Acute) Hyperglycemia (Acute) Hyponatremia (Acute) Poor nutrition (Acute) 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 complication (Acute) Wound infection (Acute) Diabetic foot ulcer (Chronic) Diabetic neuropathy (Chronic) Osteomyelitis (Chronic) Hospital Course: History of Present Illness: 61-year-old male, with a significant past medical history of HTN, HLD, CAD s/p CABG, ICM with chronic systolic CHF and multiple prior exacerbations, PAD with amputations, CKD, and anemia, who presents to the ED with fluid and blood drainage from left foot wound. 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 Pt also states that he has not been able to eat due to vomiting and diarrhea. 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: Peripheral Neuropathy Cardiovascular: Yes: CAD (CABG 2009., stents x5), CHF, HTN Pulmonary: Yes: COPD Gastrointestinal: Yes: Constipation Psych: Yes: Anxiety, Depression Endocrine: Yes: Diabetes Mellitus - Past Surgical History Past Surgical History: Yes: Amputation (left TMT, right 1st and 2nd toes), CABG (2009 at [facility]) - Problems (1) Diabetic foot infection Code(s): E11.69 - TYPE 2 DIABETES MELLITUS WITH OTHER SPECIFIED COMPLICATION L08.9 - LOCAL INFECTION OF THE SKIN AND SUBCUTANEOUS TISSUE, UNSP (2) RUBY (acute kidney injury) Code(s): N17.9 - ACUTE KIDNEY FAILURE, UNSPECIFIED (3) CHF exacerbation Assessment/Plan: LASEDNA CARDIO on case Code(s): I50.9 - HEART FAILURE, UNSPECIFIED Qualifiers: Congestive heart failure type: unspecified congestive heart failure type Qualified Code(s): I50.9 - Heart failure, unspecified (4) 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 complication Assessment/Plan: BGM AND SS Code(s): E11.29 - TYPE 2 DIABETES MELLITUS W OTH DIABETIC KIDNEY COMPLICATION (5) Edema Assessment/Plan: DUPLEX NEGATIVE Code(s): R60.9 - EDEMA, UNSPECIFIED (6) Enterococcal bacteremia Assessment/Plan: COMPLETED UNASYN-- ID FOLLOW UP Code(s): R78.81 - BACTEREMIA (7) Hx of BKA Assessment/Plan: Operative Date: 09/19/16 Pre-Operative Diagnosis: Left foot gangrene Operation: Left BKA Post-Operative Diagnosis: Same as Pre-op Surgeon: Layo Aguillon Code(s): Z89.519 - ACQUIRED ABSENCE OF UNSPECIFIED LEG BELOW KNEE (8) CAD (coronary artery disease) Assessment/Plan: NO CP SAME MEDS Code(s): I25.10 - ATHSCL HEART DISEASE OF [place] CORONARY ARTERY W/O ANG PCTRS (9) Chronic kidney disease, stage 3 (moderate) Assessment/Plan: MONITOR ON CURRENT MEDS Code(s): N18.3 - CHRONIC KIDNEY DISEASE, STAGE 3 (MODERATE) (10) Anemia Assessment/Plan: AWAIT REPEAT Code(s): D64.9 - ANEMIA, UNSPECIFIED (11) Poor nutrition Assessment/Plan: GLUCERNA DIETARY Code(s): E63.9 - NUTRITIONAL DEFICIENCY, UNSPECIFIED (12) Acute depression Assessment/Plan: REMERON PSYCH APPRECIATED Code(s): F32.9 - MAJOR DEPRESSIVE DISORDER, SINGLE EPISODE, UNSPECIFIED Condition: Stable - Instructions Disposition: ASSISTED FACILITY - Home Medications Comprehensive Discharge Medication List: Ambulatory Orders Ascorbate Calcium [Vitamin C] 500 mg PO DAILY 06/22/16 Calcitriol [Calcitriol -] 0.25 mcg PO DAILY 06/22/16 Clopidogrel Bisulfate [Clopidogrel] 75 mg PO DAILY 06/22/16 Divalproex [Depakote -] 250 mg PO BID 06/22/16 Levetiracetam [Keppra Xr -] 500 mg PO DAILY 06/22/16 Sevelamer HCl [Renagel] 800 mg PO TID 06/22/16 Atorvastatin Ca [Lipitor] 20 mg PO HS #30 tablet 06/29/16 Acetaminophen [Tylenol .Regular Strength -] 650 mg PO Q4H PRN #0 tablet Bacitracin - [Bacitracin Topical Ointment -] 1 applic TP DAILY tube 09/26/16 Carvedilol [Coreg -] 6.25 mg PO BID tablet 09/26/16 Furosemide [Lasix -] 20 mg PO DAILY #30 tablet 09/26/16 Heparin - 5,000 unit SQ BID vial 09/26/16 Insulin (Levemir) [Levemir Vial] 10 units SQ BIDI #10 ml 09/26/16 Insulin Sliding Scale [Novolog Vial Sliding Scale -] 1 vial SQ ACHS units 09/26 Lactobacillus Acidophilus [Bacid -] 1 tab PO DAILY tab 09/26/16 Mirtazapine [Remeron -] 30 mg PO HS #60 tablet 09/26/16 Oxycodone HCl [Roxicodone -] 5 mg PO Q6H PRN #0 tablet MDD 4 09/26/16 Potassium Chloride [K-Dur -] 20 meq PO DAILY #30 tab 09/26/16
[2016-09-27] MEDS ORDERED: INSULIN (NOVOLOG) ASPART 100 UNITS/ML 10ML VIAL ONE (10:12)
[2016-09-27] MEDS: CARVEDILOL 6.25 MG TABLET (FP) PO SCH (10:35)
[2016-09-27] MEDS: DIVALPROEX SODIUM 250 MG TABLET E.C. (FP) PO SCH (10:35)
[2016-09-27] MEDS: CITALOPRAM HYDROBROMIDE 20 MG TABLET (FP) PO SCH (10:35)
[2016-09-27] MEDS: levETIRAcetam XR 500 MG TAB PO SCH (10:35)
[2016-09-27] MEDS: LACTOBACILLUS ACIDOPHILUS 1 EACH TAB (FP) PO SCH (10:35)
[2016-09-27] MEDS: BACITRACIN 30 GM TUBE TOPICAL OINTMENT TP SCH (10:36)
[2016-09-27] MEDS: CALCITRIOL 0.25 MCG CAPSULE (FP) PO SCH (10:36)
[2016-09-27] MEDS: CLOPIDOGREL BISULFATE 75 MG TABLET (FP) PO SCH (10:36)
[2016-09-27] MEDS: ASCORBIC ACID 500 MG TABLET (FP) PO SCH (10:36)
[2016-09-27] MEDS: HEPARIN NA (PORCINE) 5,000 UNITS/ML 1ML VIAL SQ SCH (10:36)
[2016-09-27 11:17] VITALS: BP 126/72; PULSE 89
== END 2016-09-27 11:05 | DRG 853 ==
LOC: JER 09:24 → JERBED 12:40 → J8W 09-14 02:25
PROVIDERS: ADMIT Family Medicine; ATTEND Family Medicine
PROC: 30233N1 Transfusion of Nonautologous Red Blood Cells into Peripheral Vein, Percutaneous Approach (ICD-10-PCS; 2016-09-14)
PROC: 0Y6J0Z2 Detachment at Left Lower Leg, Mid, Open Approach (ICD-10-PCS; principal; 2016-09-19 11:00)
DX: A41.9 Sepsis, unspecified organism (principal); I50.23 Acute on chronic systolic (congestive) heart failure; M86.672 Other chronic osteomyelitis, left ankle and foot; E11.52 Type 2 diabetes mellitus with diabetic peripheral angiopathy with gangrene; N17.9 Acute kidney failure, unspecified; M86.172 Other acute osteomyelitis, left ankle and foot; L03.116 Cellulitis of left lower limb; I13.0 Hypertensive heart and chronic kidney disease with heart failure and stage 1 through stage 4 chronic kidney disease, or unspecified chronic kidney disease; I50.22 Chronic systolic (congestive) heart failure; E87.1 Hypo-osmolality and hyponatremia; D62 Acute posthemorrhagic anemia; E11.621 Type 2 diabetes mellitus with foot ulcer; H40.9 Unspecified glaucoma; E11.40 Type 2 diabetes mellitus with diabetic neuropathy, unspecified; E11.69 Type 2 diabetes mellitus with other specified complication; E78.5 Hyperlipidemia, unspecified; I25.10 Atherosclerotic heart disease of native coronary artery without angina pectoris; Z95.1 Presence of aortocoronary bypass graft; F32.9 Major depressive disorder, single episode, unspecified; E11.22 Type 2 diabetes mellitus with diabetic chronic kidney disease; N18.3 Chronic kidney disease, stage 3 (moderate); Z79.4 Long term (current) use of insulin; E83.51 Hypocalcemia; R19.7 Diarrhea, unspecified; E87.5 Hyperkalemia
CPT/HCPCS: 36415; 36430; 71010-TC; 73630-TC-LT; 80048; 80053; 81003; 81015; 82570; 83036; 83735; 83880; 84100; 84156; 84300; 84443; 84540; 85025; 85610; 85651; 85730; 86140; 86850; 86900; 86901; 86922; 87040; 87070; 87186; 87205; 88307-TC; 88311-TC; 93005; 93010; 93306-TC; 93970-TC; 94640; 94760; 97161-GP; 99283-25; 99284-25; G0480; J1644; P9038; P9058

== ENCOUNTER 2016-12-01 05:57 | Emergency (ER) | payer OTHER ==
[2016-12-01 06:08] VITALS: TEMP 97.7; BMI 20.9
--- NOTE | 2016-12-01 07:20 | PDOC ---
History of Present Illness - General History Source: Patient, Old Records Exam Limitations: No Limitations - History of Present Illness Initial Comments: 12/01/16 07:55 The patient is a 61 year old male with a past medical history of HTN, HLD, CAD s /p CABG, ICM with chronic systolic CHF and multiple prior exacerbations, PAD with amputations, CKD, and anemia, who presents to the emergency department today with shortness of breath for one day, leg swelling for 3 weeks, and diarrhea for 5 weeks. The patient states that his shortness of breath presents secondary to his rapid breathing. The patient notes that his swelling is secondary to his below the knee amputation on 09/19/[address] Kuhn PCP: Dr. Rios [phone] PAST MEDICAL HISTORY: HTN, HLD, CAD s/p CABG, ICM with chronic systolic CHF and multiple prior exacerbations, PAD with amputations, CKD, and anemia PAST SURGICAL HISTORY: Left BKA, right partial foot amputation, Cardiac stents SOCIAL HISTORY: None reported ALLERGIES: NKDA, Banana <Ric Zhou - Last Filed: 12/01/16 11:16> - General History Source: Patient, Old Records Exam Limitations: No Limitations, Other (patient is a poor historian) <Courtney Cash - Last Filed: 12/01/16 12:34> - General Chief Complaint: Nausea/Vomiting Stated Complaint: WEAKNESS/VOMITING/DIARRHEA Time Seen by Provider: 12/01/16 07:12 Past History <Ric Zhou - Last Filed: 12/01/16 11:16> - Past Medical History Anemia: No Cardiac Disorders: Yes (STENTS X5) CHF: Yes Diabetes: Yes HTN: Yes Hypercholesterolemia: Yes Suicide Attempt (Hx): No - Surgical History Abdominal Surgery: No Appendectomy: No Cardiac Surgery: Yes (stents) Cholecystectomy: No Lung Surgery: No Neurologic Surgery: No Orthopedic Surgery: Yes (R. hand, r. foot toes amputated, l. foot 4th & 5th toes amputated) - Immunization History Td Vaccination: Yes TDAP Vaccination: Yes Immunization Up to Date: No - Psycho/Social/Smoking Cessation Hx Anxiety: No Suicidal Ideation: No Smoking Status: No Smoking History: Never smoked Have you smoked in the past 12 months: No Number of Cigarettes Smoked Daily: 0 Information on smoking cessation initiated: No Hx Alcohol Use: No Drug/Substance Use Hx: No Substance Use Type: None Hx Substance Use Treatment: No <ShaileshCourtney - Last Filed: 12/01/16 12:34> - Past Medical History Allergies/Adverse Reactions: Allergies Allergy/AdvReac Type Severity Reaction Status Date / Time banana Allergy Verified 12/01/16 06:08 No Known Drug Allergies Allergy Verified 12/01/16 06:08 Home Medications: Ambulatory Orders Ascorbate Calcium [Vitamin C] 500 mg PO DAILY 06/22/16 Calcitriol [Calcitriol -] 0.25 mcg PO DAILY 06/22/16 Clopidogrel Bisulfate [Clopidogrel] 75 mg PO DAILY 06/22/16 Divalproex [Depakote -] 250 mg PO BID 06/22/16 Levetiracetam [Keppra Xr -] 500 mg PO DAILY 06/22/16 Sevelamer HCl [Renagel] 800 mg PO TID 06/22/16 Atorvastatin Ca [Lipitor] 20 mg PO HS #30 tablet 06/29/16 Acetaminophen [Tylenol .Regular Strength -] 650 mg PO Q4H PRN #0 tablet Bacitracin - [Bacitracin Topical Ointment -] 1 applic TP DAILY tube 09/26/16 Carvedilol [Coreg -] 6.25 mg PO BID tablet 09/26/16 Furosemide [Lasix -] 20 mg PO DAILY #30 tablet 09/26/16 Heparin - 5,000 unit SQ BID vial 09/26/16 Insulin (Levemir) [Levemir Vial] 10 units SQ BIDI #10 ml 09/26/16 Insulin Sliding Scale [Novolog Vial Sliding Scale -] 1 vial SQ ACHS units 09/26 Lactobacillus Acidophilus [Bacid -] 1 tab PO DAILY tab 09/26/16 Mirtazapine [Remeron -] 30 mg PO HS #60 tablet 09/26/16 Oxycodone HCl [Roxicodone -] 5 mg PO Q6H PRN #0 tablet MDD 4 09/26/16 Potassium Chloride [K-Dur -] 20 meq PO DAILY #30 tab 09/26/16 Review of Systems - Review of Systems Able to Perform ROS?: Yes Comments:: 12/01/16 07:56 CONSTITUTIONAL: Absent: fever, chills, diaphoresis, generalized weakness, malaise, loss of appetite HEENT: Absent: rhinorrhea, nasal congestion, throat pain, throat swelling, difficulty swallowing, mouth swelling, ear pain, eye pain, visual Changes CARDIOVASCULAR: Absent: chest pain, syncope, palpitations, irregular heart rate, lightheadedness , peripheral edema RESPIRATORY: Present: Shortness of breath Absent: cough, dyspnea with exertion, orthopnea, wheezing, stridor, hemoptysis GASTROINTESTINAL: Present: Diarrhea Absent: abdominal pain, abdominal distension, nausea, vomiting, constipation, melena, hematochezia GENITOURINARY: Absent: dysuria, frequency, urgency, hesitancy, hematuria, flank pain, genital pain MUSCULOSKELETAL: Present: Bilateral leg swelling Absent: myalgia, arthralgia SKIN: Absent: rash, itching, pallor HEMATOLOGIC/IMMUNOLOGIC: Absent: easy bleeding, easy bruising, lymphadenopathy, frequent infections ENDOCRINE: Absent: unexplained weight gain, unexplained weight loss, heat intolerance, cold intolerance NEUROLOGIC: Absent: headache, focal weakness or paresthesias, dizziness, seizure, mental status changes, bladder or bowel incontinence PSYCHIATRIC: Absent: anxiety, depression, suicidal or homicidal ideation, hallucinations. <Ric Zhou - Last Filed: 12/01/16 11:16> *Physical Exam - Vital Signs Last Vital Signs Temp Pulse Resp BP Pulse Ox 97.7 F 100 H 19 112/71 4 L 12/01/16 06:01 12/01/16 06:01 12/01/16 06:01 12/01/16 06:01 12/01/16 06:01 - Physical Exam Comments: 12/01/16 07:56 GENERAL: Well developed, well nourished. Awake and alert. In no acute distress. HEENT: Normocephalic, atraumatic. PERRLA, EOMI. No conjunctival pallor. Sclera are non- icteric. Moist mucous membranes. Oropharynx is clear. NECK: Supple. Full ROM. No JVD. Carotid pulses 2+ and symmetric, without bruits. No thyromegaly. No lymphadenopathy. CARDIOVASCULAR: Regular rate and rhythm. No murmurs, rubs, or gallops. Distal pulses are 2+ and symmetric. PULMONARY: No evidence of respiratory distress. Lungs clear to auscultation bilaterally. No wheezing, rales or rhonchi. ABDOMINAL: (+) Soft. Mild suprapubic tenderness. Non-distended. No rebound or guarding. No organomegaly. Normoactive bowel sounds. MUSCULOSKELETAL (+) s/p right TMA s/p left BKA at bka stump sight there is erythema and mild tenderness. Medial aspect of wound is healing with some fibrinous exudates there is an ulcer proximal to stump site 1.5 x 1.5 cm with mild surrounding erythema. No CVA tenderness. EXTREMITIES: No cyanosis. No clubbing. No edema. No calf tenderness. SKIN: Warm and dry. Normal capillary refill. No rashes. No jaundice. NEUROLOGICAL: Alert, awake, appropriate. Cranial nerves 2-12 intact. No deficits to light touch and temperature in face, upper extremities and lower extremities. No motor deficits in the in face. PSYCHIATRIC: Cooperative. Good eye contact. Appropriate mood and affect <Ric Zhou - Last Filed: 12/01/16 11:16> - Vital Signs Last Vital Signs Temp Pulse Resp BP Pulse Ox 97.7 F 100 H 19 112/71 4 L 12/01/16 06:01 12/01/16 06:01 12/01/16 06:01 12/01/16 06:01 12/01/16 06:01 <Courtney Cash - Last Filed: 12/01/16 12:34> ED Treatment Course - LABORATORY CBC & Chemistry Diagram: 12/01/16 08:20 12/01/16 08:20 - RADIOLOGY Radiograph Interpretation: 12/01/16 09:55 EXAM#: TYPE/EXAM: RESULT: RAD/LEG TIB/FIB-LEFT Left tibia and fibula: Weakness. Fall. Pain. Imaging reveals a [id number] amputation with intact proximal tibial and fibular components. There is soft tissue calcification but no sign of soft tissue air and no sign of bone destruction. There are 2 medial clips by the distal femur. The femur and patella appear intact. If one is concerned about osteomyelitis, three-phase bone scan may be of help. Impression : Status post [id number] amputation. Intact bones as described. See discussion above. Reported By: Robert Webb MD 12/01/16 0907 EXAM#: TYPE/EXAM: RESULT: RAD/CHEST X-RAY PORTABLE* AP portable chest : Shortness of breath. Weakness. Fall. Since a prior study of 10/08/2016, again noted is the large heart with sternal sutures some of which are broken, clips and there are skin fold artifacts. The lungs appear better aerated. The increased changes at the bases have diminished. Follow-up recommended Impression : Improvement since prior study. See discussion above Reported By: Robert Webb MD 12/01/16 0756 EXAM#: TYPE/EXAM: RESULT: [id number] CT/ABDOMEN PELVIS CT W/O CONTR Abdomen and pelvis CT (without contrast) Clinical information: lower abdominal pain, diarrhea multiplanar imaging was performed. As requested no intravenous or enteric contrast was administered. There is no evidence of pneumoperitoneum, free intraperitoneal fluid or bowel obstruction. In comparison to a CT study of 10/28/2012 interval development of presacral soft tissue edema is seen. There is also development of perirectal soft tissue edema posteriorly. Equivocal development of mild concentric rectal wall thickening is seen within the mid and lower thirds. Minimal to mild left-sided colonic diverticulosis is noted without evidence of acute diverticulitis. There is partial visualization of the appendix which demonstrates no discrete abnormality. No indirect CT signs of acute appendicitis are noted. No gross small bowel pathology. Subtle trace pericholecystic fluid is seen. Cholelithiasis is noted. No biliary tract dilatation is identified. Interval development of several enlarged nonspecific upper abdominal retroperitoneal lymph nodes is noted with a maximum short axis diameter of 1.2 cm. The liver, spleen, pancreas, adrenal glands and kidneys demonstrate no discrete noncontrast pathology. Atherosclerotic renal artery calcifications are noted which are probably more prominent in the expected for the patient's chronologic age. There is no aortic aneurysm. Development of concentric subcutaneous edema is noted principally along the flanks. The partially imaged lower chest demonstrate development of cardiomegaly. Prominent atherosclerotic coronary artery calcifications are visualized. Moderate right- sided and very small left-sided pleural effusions have developed. Right basilar opacity is seen posteriorly which may represent atelectasis and/or small infiltrate. Mild bilateral lower lung field discoid atelectasis. IMPRESSION: Presacral soft tissue edema. Mild perirectal soft tissue edema posteriorly. Equivocal mild rectal wall thickening. Concentric subcutaneous edema principally along the flanks. Mild left-sided colonic diverticulosis without evidence of acute diverticulitis. Cholelithiasis. Trace pericholecystic fluid accumulation. Nonspecific abdominal retroperitoneal lymphadenopathy. Cardiomegaly. Prominent atherosclerotic coronary artery calcifications. Moderate right-sided and small left-sided pleural effusions. Mild right lower lobe opacity which may represent a small infiltrate versus focal atelectasis. Mild bilateral lower lung field discoid atelectasis. Reported By: Regino Clarke MD 12/01/16 1103 EXAM#: TYPE/EXAM: RESULT: [id number] RAD/CHEST X-RAY PORTABLE* AP portable chest : Shortness of breath. Weakness. Fall. Since a prior study of 10/08/2016, again noted is the large heart with sternal sutures some of which are broken, clips and there are skin fold artifacts. The lungs appear better aerated. The increased changes at the bases have diminished. Follow-up recommended Impression : Improvement since prior study. See discussion above Reported By: Robert Webb MD 12/01/16 0756 <Ric Zhou - Last Filed: 12/01/16 11:16> - LABORATORY CBC & Chemistry Diagram: 12/01/16 08:20 12/01/16 08:20 <Courtney Cash - Last Filed: 12/01/16 12:34> Medical Decision Making - Medical Decision Making 12/01/16 08:20 61-year-old male with history of hypertension, hyperlipidemia, coronary artery disease status post CABG, ischemic cardiomyopathy, CHF, peripheral vascular disease status post left BKA and right TMA presents the emergency Department with complaints of chronic diarrhea, weakness and pain to the left lower extremity. Differential diagnosis includes but is not limited to: Gastroenteritis, colitis, wound infection, dehydration, sepsis, electrolyte abnormality, toxic/metabolic derangement, ACS. Plan: 1. EKG 2. Labs 3. Urine analysis 4. Chest x-ray and plain film of the left lower extremity 5. IV fluids for hydration 6. Observe and reevaluate 12/01/16 11:23 Addendum: Labs are reviewed and are noted in the EMR. CT scan of the abdomen and pelvis show no acute intra-abdominal pathology. Chest x-ray is improved from prior chest x-ray. Labs are at baseline. I've discussed the case with the patient's primary care physician. Given that there are no acute issues going on , I will discharge the patient home. Follow-up with and not be this week. Return to the emergency department if symptoms persist, worsen, or new symptoms arise. <Courtney Cash - Last Filed: 12/01/16 12:34> *DC/Admit/Observation/Transfer - Attestations Scribe Attestion: 12/01/16 07:57 Documentation prepared by Ric Zhou, acting as medical territory manager for Courtney Cash MD. <Ric Zhou - Last Filed: 12/01/16 11:16> - Discharge Dispostion Admit: No - Attestations Physician Attestion: 12/01/16 08:22 I, Dr. Courtney Cash, attest that the scribes documentation that appears above has been prepared under my direction and personally reviewed by me in its entirety. I confirmed that the note above accurately reflects all work, treatment, procedures, and medical decision-making performed by me. <Courtney Cash - Last Filed: 12/01/16 12:34> Diagnosis at time of Disposition: Weakness - Discharge Dispostion Disposition: HOME Condition at time of disposition: Stable - Referrals Referrals: Paul Rios MD [Primary Care Provider] - - Patient Instructions Additional Instructions: Follow-up with Dr. Rios within the next week. Return to the Emergency Department if your symptoms persist, worsen or new symptoms arise.
[2016-12-01] MEDS ORDERED: SODIUM CHLORIDE 1,000 ML IV STA (07:22)
[2016-12-01 08:44] LABS: BASOPHIL 1.1 % (0-2.0); MCH 33.1 pg (25.7-33.7); MCHC 33.1 g/dl (32.0-35.9); MEAN PLT VOLUME 9.1 fl (7.5-11.1); NEUTROPHILS 70.4 % (42.8-82.8); PLATELET COUNT 122 K/MM3 (134-434); RDW 16.3 % (11.9-15.9)
[2016-12-01 08:57] LABS: ALBUMIN 2.8 g/dl (3.4-5.0); ANION GAP 10 (8-16); BILIRUBIN,TOTAL 0.5 mg/dL (0.2-1.0); CALCIUM 8.6 mg/dL (8.5-10.1); CO2 22 mmol/L (21-32); CREATININE 1.6 mg/dL (0.7-1.3); GLUCOSE,RANDOM 154 mg/dL (74-106); SGOT/AST 24 U/L (15-37); SGPT/ALT 15 U/L (12-78); TOT PROT 6.3 g/dl (6.4-8.2)
[2016-12-01 08:59] LABS: ALK PHOS 81 U/L (45-117); TROPONIN I 0.04 ng/ml (0.00-0.05)
[2016-12-01] MEDS ORDERED: OXYCODONE/APAP 5/325MG COMBO TABLET PO ONE (11:26)
[2016-12-01] MEDS ORDERED: OXYCODONE/APAP 5/325MG COMBO TABLET ONE (11:42)
[2016-12-01 11:55] LABS: URINE APPEARANCE CLEAR; URINE BILIRUBIN NEGATIVE (NEGATIVE); URINE BLOOD 1+ (NEGATIVE); URINE COLOR YELLOW; URINE GLUCOSE (UA) 2+ (NEGATIVE); URINE KETONE TRACE (NEGATIVE); URINE LEUK ESTERASE NEGATIVE (NEGATIVE); URINE NITRITE NEGATIVE (NEGATIVE); URINE PROTEIN 2+ (NEGATIVE); URINE UROBILINOGEN NEGATIVE E.U./dl (0.2-1.0)
[2016-12-01 11:57] LABS: URINE HYALINE CAST 3 /lpf; URINE MUCUS RARE; URINE RBC 12 /hpf (0-3); URINE WBC 2 /hpf (3-5)
[2016-12-01 13:48] VITALS: BP 118/60; PULSE 91
--- NOTE | 2016-12-01 17:25 | EKG ---
Test Reason : Blood Pressure : / mmHG Vent. Rate : 110 BPM Atrial Rate : 110 BPM P-R Int : 176 ms QRS Dur : 116 ms QT Int : 350 ms P-R-T Axes : 068 -42 144 degrees QTc Int : 473 ms SINUS TACHYCARDIA LEFT AXIS DEVIATION INCOMPLETE LEFT BUNDLE BRANCH BLOCK NONSPECIFIC T WAVE ABNORMALITY ABNORMAL ECG WHEN COMPARED WITH ECG OF 06-OCT-2016 21:29, PREMATURE VENTRICULAR COMPLEXES ARE NO LONGER PRESENT QT HAS SHORTENED Confirmed by JONNIE DAVIDSON, HEMALATHA ([id number]) on 12/01/2016 5:25:01 PM Referred By: Confirmed By:HEMALATHA CRISTINA MD
--- NOTE | 2016-12-12 15:47 | EKG ---
Test Reason : Blood Pressure : / mmHG Vent. Rate : 108 BPM Atrial Rate : 108 BPM P-R Int : 178 ms QRS Dur : 114 ms QT Int : 380 ms P-R-T Axes : 075 -31 102 degrees QTc Int : 509 ms SINUS TACHYCARDIA WITH PREMATURE ATRIAL COMPLEXES WITH ABERRANT CONDUCTION POSSIBLE LEFT ATRIAL ENLARGEMENT LEFT AXIS DEVIATION ANTERIOR INFARCT , AGE UNDETERMINED ABNORMAL ECG WHEN COMPARED WITH ECG OF 01-DEC-2016 07:27, ABERRANT CONDUCTION IS NOW PRESENT Confirmed by TIRSO DAVIDSON, BRIE ([id number]) on 12/12/2016 3:46:41 PM Referred By: Confirmed By:BRIE CHAHAL MD
== END 2016-12-01 14:02 | disposition home or self-care (01) ==
LOC: JER 05:57
PROC: 3E0337Z Introduction of Electrolytic and Water Balance Substance into Peripheral Vein, Percutaneous Approach (ICD-10-PCS; principal; 2016-12-01)
DX: R53.1 Weakness (principal); I25.10 Atherosclerotic heart disease of native coronary artery without angina pectoris; I13.0 Hypertensive heart and chronic kidney disease with heart failure and stage 1 through stage 4 chronic kidney disease, or unspecified chronic kidney disease; N18.9 Chronic kidney disease, unspecified; I50.22 Chronic systolic (congestive) heart failure; Z95.1 Presence of aortocoronary bypass graft; Z95.5 Presence of coronary angioplasty implant and graft; E11.9 Type 2 diabetes mellitus without complications; Z79.4 Long term (current) use of insulin; E78.00 Pure hypercholesterolemia, unspecified; I73.89 Other specified peripheral vascular diseases; Z89.512 Acquired absence of left leg below knee; Z89.431 Acquired absence of right foot
CPT/HCPCS: 36415; 71010-TC; 73590-TC-LT; 74176-TC; 80053; 81003; 81015; 82550; 84484; 85025; 93005; 93010; 96360; 99283-25

== ENCOUNTER 2016-12-07 11:09 | Inpatient (IN) | payer OTHER ==
--- NOTE | 2016-12-07 11:21 | PDOC ---
ED Treatment Course - LABORATORY CBC & Chemistry Diagram: 12/07/16 12:40 12/07/16 13:51 Medical Decision Making - Medical Decision Making 12/07/16 11:21 The patient was seen and evaluated in conjunction with RYAN Bowman under my direct supervision, ancillary studies were reviewed. I independently interviewed and evaluated the patient and I agree with the plan as outlined by RYAN Sol. 12/07/16 16:51 Pt's labs noted, slight inc in LFT's ,is c/o pain with diarrhea and difficulty caring for self at home. Pt will require sonogram and is going to be admitted for additionally work up. Pt agrees with admission 12/07/16 16:54 *DC/Admit/Observation/Transfer Diagnosis at time of Disposition: Diabetes, Wound of lower extremity, Diarrhea, Weakness, Noncompliance with medication regimen
--- NOTE | 2016-12-07 12:12 | PDOC ---
History of Present Illness - General Stated Complaint: WEAKNESS/DIZZY Time Seen by Provider: 12/07/16 11:15 History Source: Patient Exam Limitations: No Limitations - History of Present Illness Initial Comments: 12/07/16 12:21 61 yr old male presents to the emergency room with complaints of generalized fatigue, continual brown watery diarrhea, left flank pain, and fluctuating blood sugar. Patient states" care once a week secondary to left BKA wound. Patient states has been unable to take his medication since he ran out of them and unable to pick him up from the pharmacy. Patient states lives alone and does have a cousin that helps with transportation. Timing/Duration: getting worse Severity: mild, moderate Associated Symptoms: reports: weakness Past History - Travel Traveled outside of the country in the last 30 days: No Close contact w/someone who was outside of country & ill: No - Past Medical History Allergies/Adverse Reactions: Allergies Allergy/AdvReac Type Severity Reaction Status Date / Time banana Allergy Verified 12/07/16 11:33 No Known Drug Allergies Allergy Verified 12/07/16 11:33 Home Medications: Ambulatory Orders Ascorbate Calcium [Vitamin C] 500 mg PO DAILY 06/22/16 Calcitriol [Calcitriol -] 0.25 mcg PO DAILY 06/22/16 Clopidogrel Bisulfate [Clopidogrel] 75 mg PO DAILY 06/22/16 Divalproex [Depakote -] 250 mg PO BID 06/22/16 Levetiracetam [Keppra Xr -] 500 mg PO DAILY 06/22/16 Sevelamer HCl [Renagel] 800 mg PO TID 06/22/16 Atorvastatin Ca [Lipitor] 20 mg PO HS #30 tablet 06/29/16 Acetaminophen [Tylenol .Regular Strength -] 650 mg PO Q4H PRN #0 tablet Bacitracin - [Bacitracin Topical Ointment -] 1 applic TP DAILY tube 09/26/16 Carvedilol [Coreg -] 6.25 mg PO BID tablet 09/26/16 Furosemide [Lasix -] 20 mg PO DAILY #30 tablet 09/26/16 Heparin - 5,000 unit SQ BID vial 09/26/16 Insulin (Levemir) [Levemir Vial] 10 units SQ BIDI #10 ml 09/26/16 Insulin Sliding Scale [Novolog Vial Sliding Scale -] 1 vial SQ ACHS units 09/26 Lactobacillus Acidophilus [Bacid -] 1 tab PO DAILY tab 09/26/16 Mirtazapine [Remeron -] 30 mg PO HS #60 tablet 09/26/16 Oxycodone HCl [Roxicodone -] 5 mg PO Q6H PRN #0 tablet MDD 4 09/26/16 Potassium Chloride [K-Dur -] 20 meq PO DAILY #30 tab 09/26/16 Anemia: No Cardiac Disorders: Yes (STENTS X5) CHF: Yes Diabetes: Yes HTN: Yes Hypercholesterolemia: Yes Suicide Attempt (Hx): No - Surgical History Abdominal Surgery: No Appendectomy: No Cardiac Surgery: Yes (stents) Cholecystectomy: No Lung Surgery: No Neurologic Surgery: No Orthopedic Surgery: Yes (R. hand, r. foot toes amputated, l. foot 4th & 5th toes amputated) - Immunization History Td Vaccination: Yes TDAP Vaccination: Yes Immunization Up to Date: No - Psycho/Social/Smoking Cessation Hx Anxiety: No Suicidal Ideation: No Smoking Status: No Smoking History: Never smoked Have you smoked in the past 12 months: No Number of Cigarettes Smoked Daily: 0 Hx Alcohol Use: No Drug/Substance Use Hx: No Substance Use Type: None Hx Substance Use Treatment: No Patient Lives Alone: Yes Lives with/in: lives alone Review of Systems - Review of Systems Able to Perform ROS?: No Is the patient limited Bulgarian proficient: No Constitutional: Yes: Loss of Appetite, Malaise, Weakness HEENTM: No: Symptoms Reported Respiratory: No: Symptoms reported ABD/GI: Yes: Diarrhea, Poor Appetite, Abdominal cramping : Yes: Flank Pain (left) Musculoskeletal: No: Symptoms Reported Integumentary: No: Symptoms Reported Neurological: Yes: Weakness Endocrine: No: Increased Hunger, Increased Thirst, Increased Urine *Physical Exam - Physical Exam General Appearance: Yes: Nourished, Appropriately Dressed. No: Apparent Distress HEENT: positive: EOMI, ASHA, Pharynx Normal. negative: Pale Conjunctivae Neck: positive: Supple Respiratory/Chest: positive: Lungs Clear, Normal Breath Sounds. negative: Respiratory Distress, Accessory Muscle Use Cardiovascular: positive: Regular Rhythm, Regular Rate. negative: Murmur Gastrointestinal/Abdominal: positive: Soft, Tenderness (left periumbilical , lt flank., LUQ) Musculoskeletal: negative: CVA Tenderness Extremity: positive: Normal Capillary Refill. negative: Pedal Edema (rle) Integumentary: positive: Normal Color, Warm, Moist, Other ( wound to lt bka stump) Neurologic: positive: Normal Mood/Affect, Motor Strength 5/5 Heart Score/ECG Review - History History: Slightly suspicious - Electrocardiogram EKG: Normal - Age Age: 45-65 - Risk Factors Risk Factors Heart Score: Yes Hx Diabetes, Yes Smoking History Based on the list above the patient has:: 1-2 risk factors - Troponin Troponin: </= normal limit - Score Heart Score - Total: 2 - ECG Intrepretation Rhythm: Regular Rhythm (rate 77 with PVC. LBBB. Unchanged from previous) ED Treatment Course - LABORATORY CBC & Chemistry Diagram: 12/07/16 12:40 12/07/16 13:51 Medical Decision Making - Medical Decision Making 12/07/16 12:58 Patient unable continual diarrhea, weakness, and left abdominal pain. Patient states was seen here a few days ago and was discharged home but states symptoms continued. Patient on exam had left flank left upper quadrant (umbilical pain. Patient with normal vital signs but refusing rectal temp. Patient ordered for labs including acetone, cardiac profile, EKG, chest x-ray, IV fluids, acetone, and urine. 12/07/16 15:01 Laboratory Tests 09/23/16 09/24/16 10/05/16 06:15 06:15 22:25 Hgb Chloride BUN Creatinine Random Glucose AST 8 L D 10 L D 11 L D ALT 7 L Total Bilirubin Creatine Kinase Troponin I Urine Protein Urine Glucose (UA) Urine Ketones Urine Blood Ur Leukocyte Esterase Urine WBC Acetone, Qual 10/06/16 10/06/16 12/01/16 08:00 08:00 08:20 Hgb 8.4 L 8.4 L Chloride BUN Creatinine Random Glucose AST 11 L ALT 8 L Total Bilirubin Creatine Kinase Troponin I Urine Protein Urine Glucose (UA) Urine Ketones Urine Blood Ur Leukocyte Esterase Urine WBC Acetone, Qual 12/07/16 12/07/16 13:20 13:51 Hgb Chloride 108 H BUN 39 H D Creatinine 2.0 H D Random Glucose 171 H AST 73 H D ALT 169 H D Total Bilirubin 1.4 H D Creatine Kinase 34 L Troponin I 0.05 Urine Protein 1+ H Urine Glucose (UA) 1+ H Urine Ketones Negative Urine Blood 2+ H Ur Leukocyte Esterase Negative Urine WBC 2 Acetone, Qual Negative Patient with noted increase in his LFTs. Patient ordered for limited abdominal ultrasound. Awaiting callback from Dr. Rios 12/07/16 15:[address] on 12/01 showed no acute findings. Case discussed with Dr. rodriguez and states up her constant for GI. Patient to be admitted to [facility]. *DC/Admit/Observation/Transfer Diagnosis at time of Disposition: Diabetes, Wound of lower extremity, Diarrhea, Weakness, Noncompliance with medication regimen - Discharge Dispostion Admit: Yes - Referrals Referrals: Paul Rios MD [Primary Care Provider] -
[2016-12-07] MEDS ORDERED: SODIUM CHLORIDE 1,000 ML IV STA (12:35)
[2016-12-07] MEDS ORDERED: KETOROLAC TROMETHAMINE 30 MG/1 ML VIAL IVPUSH ONE (12:35)
[2016-12-07] MEDS ORDERED: KETOROLAC TROMETHAMINE 30 MG/1 ML VIAL ONE (12:49)
[2016-12-07 12:56] LABS: BASOPHIL 0.9 % (0-2.0); EOSINOPHIL 1.4 % (0-4.5); MCH 33.8 pg (25.7-33.7); MCHC 33.1 g/dl (32.0-35.9); MEAN PLT VOLUME 10.1 fl (7.5-11.1); NEUTROPHILS 66.8 % (42.8-82.8); PLATELET COUNT 190 K/MM3 (134-434); RDW 17.7 % (11.9-15.9); WHITE BLOOD COUNT 4.9 K/mm3 (4.0-10.0)
[2016-12-07 13:36] LABS: URINE APPEARANCE CLEAR; URINE BILIRUBIN NEGATIVE (NEGATIVE); URINE COLOR YELLOW; URINE GLUCOSE (UA) 1+ (NEGATIVE); URINE KETONE NEGATIVE (NEGATIVE); URINE LEUK ESTERASE NEGATIVE (NEGATIVE); URINE NITRITE NEGATIVE (NEGATIVE); URINE UROBILINOGEN NEGATIVE E.U./dl (0.2-1.0)
[2016-12-07 13:38] LABS: URINE BLOOD 2+ (NEGATIVE); URINE PROTEIN 1+ (NEGATIVE)
[2016-12-07 13:39] LABS: URINE BACTERIA FEW /hpf (NONE SEEN); URINE HYALINE CAST 14 /lpf; URINE MUCUS RARE; URINE RBC 3 /hpf (0-3); URINE WBC 2 /hpf (3-5)
[2016-12-07] MEDS ORDERED: FAMOTIDINE 20 MG/50 ML IVPB 50 ML IVPB ONE ×2 (13:40→13:48)
[2016-12-07 14:22] LABS: MAGNESIUM 2.1 mg/dL (1.8-2.4)
[2016-12-07 14:29] LABS: ANION GAP 10 (8-16); BILIRUBIN,TOTAL 1.4 mg/dL (0.2-1.0); CALCIUM 8.6 mg/dL (8.5-10.1); CO2 23 mmol/L (21-32); GLUCOSE,RANDOM 171 mg/dL (74-106); SGOT/AST 73 U/L (15-37); SGPT/ALT 169 U/L (12-78); TOT PROT 6.3 g/dl (6.4-8.2)
[2016-12-07 14:32] LABS: ALK PHOS 107 U/L (45-117); TROPONIN I 0.05 ng/ml (0.00-0.05)
[2016-12-07 14:38] LABS: ACETONE SERUM NEGATIVE (NEGATIVE)
[2016-12-07 14:39] LABS: ACETONE SERUM NEGATIVE (NEGATIVE)
--- NOTE | 2016-12-07 18:00 | CON.GI ---
Consult Consult Specialty:: gastroenterology Reason for Consultation:: diarrhea - History of Present Illness History of Present Illness: 61 y/o male, with non healing ulcer in the right foot and left stump, MRSA infection has 6 week history of diarrhea. Diarrhea is non bloody associated with mild abdominal pain. 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: Peripheral Neuropathy Cardio/Vascular: Yes: CAD (CABG 2009., stents x5), CHF, HTN Pulmonary: Yes: COPD Gastrointestinal: Yes: Constipation Psych: Yes: Anxiety, Depression Musculoskeletal: Yes: Other Endocrine: Yes: Diabetes Mellitus - Past Surgical History Past Surgical History: Yes: Amputation (left TMT, right 1st and 2nd toes), CABG (2009 at [facility]) - Alcohol/Substance Use Hx Alcohol Use: No - Smoking History Smoking history: Never smoked Have you smoked in the past 12 months: No Aproximately how many cigarettes per day: 0 - Social History Usual Living Arrangement: Half-Way ADL: Independent 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 Home Medications - Allergies Allergies/Adverse Reactions: Allergies Allergy/AdvReac Type Severity Reaction Status Date / Time banana Allergy Verified 12/07/16 11:33 No Known Drug Allergies Allergy Verified 12/07/16 11:33 - Home Medications Home Medications: Ambulatory Orders Ascorbate Calcium [Vitamin C] 500 mg PO DAILY 06/22/16 Calcitriol [Calcitriol -] 0.25 mcg PO DAILY 06/22/16 Clopidogrel Bisulfate [Clopidogrel] 75 mg PO DAILY 06/22/16 Divalproex [Depakote -] 250 mg PO BID 06/22/16 Levetiracetam [Keppra Xr -] 500 mg PO DAILY 06/22/16 Sevelamer HCl [Renagel] 800 mg PO TID 06/22/16 Atorvastatin Ca [Lipitor] 20 mg PO HS #30 tablet 06/29/16 Acetaminophen [Tylenol .Regular Strength -] 650 mg PO Q4H PRN #0 tablet Bacitracin - [Bacitracin Topical Ointment -] 1 applic TP DAILY tube 09/26/16 Carvedilol [Coreg -] 6.25 mg PO BID tablet 09/26/16 Furosemide [Lasix -] 20 mg PO DAILY #30 tablet 09/26/16 Heparin - 5,000 unit SQ BID vial 09/26/16 Insulin (Levemir) [Levemir Vial] 10 units SQ BIDI #10 ml 09/26/16 Insulin Sliding Scale [Novolog Vial Sliding Scale -] 1 vial SQ ACHS units 09/26 Lactobacillus Acidophilus [Bacid -] 1 tab PO DAILY tab 09/26/16 Mirtazapine [Remeron -] 30 mg PO HS #60 tablet 09/26/16 Oxycodone HCl [Roxicodone -] 5 mg PO Q6H PRN #0 tablet MDD 4 09/26/16 Potassium Chloride [K-Dur -] 20 meq PO DAILY #30 tab 09/26/16 Family Disease History - Family Disease History Family Disease History: Diabetes: Sister Review of Systems - Review of Systems Constitutional: denies: Fever HENT: denies: Difficult Swallowing Neck: denies: Decreased ROM Cardiovascular: denies: Chest Pain Respiratory: denies: Cough Gastrointestinal: reports: Abdominal Pain, Diarrhea. denies: Bloating, Constipation, Indigestion, Melena, Nausea, Rectal Bleeding Physical Exam-GI Vital Signs: Vital Signs Temperature 98 F 12/07/16 17:11 Pulse Rate 83 12/07/16 17:11 Respiratory Rate 18 12/07/16 17:11 Blood Pressure 113/69 12/07/16 17:11 O2 Sat by Pulse Oximetry (%) 100 12/07/16 16:54 Constitutional: Yes: Well Nourished Eyes: Yes: Conjunctiva Clear HENT: Yes: Atraumatic Neck: Yes: Supple Cardiovascular: Yes: Regular Rate and Rhythm Respiratory: Yes: CTA Bilaterally ...Palpate: Yes: Soft, Tenderness (--diffuse tenderness). No: Firm/Rigid, Guarding, Hepatomegaly, Mass, Pulsatile Mass, Splenomegaly Problem List - Problems (1) Infectious diarrhea Assessment/Plan: most likely C>diff R> IV Flagyl 500mg q 8 hours stool C.diff clear liquids Code(s): A09 - INFECTIOUS GASTROENTERITIS AND COLITIS, UNSPECIFIED
[2016-12-07 18:13] VITALS: BMI 21.1
[2016-12-07] MEDS: oxyCODONE HCL 5 MG TABLET PO PRN (20:46)
[2016-12-07] MEDS: metroNIDAZOLE 250 MG TABLET PO SCH (21:22)
[2016-12-07] MEDS: CARVEDILOL 6.25 MG TABLET (FP) PO SCH (23:27)
[2016-12-07] MEDS: MIRTAZAPINE 30 MG TABLET (FP) PO SCH (23:27)
[2016-12-07] MEDS: HEPARIN NA (PORCINE) 5,000 UNITS/ML 1ML VIAL SQ SCH (23:27)
[2016-12-07] MEDS: INSULIN SLIDING SCALE (NOVOLOG) 1 VIAL SQ SCH (23:28)
[2016-12-07] MEDS: INSULIN DETEMIR 100 UNITS/ML MDV SQ SCH (23:29)
[2016-12-08] MEDS ORDERED: PT OWN MED DRAWER 7, Y5N ONE ×2 (06:14→10:50)
[2016-12-08] MEDS: INSULIN SLIDING SCALE (NOVOLOG) 1 VIAL SQ SCH ×4 (06:15→22:35)
[2016-12-08] MEDS: metroNIDAZOLE 250 MG TABLET PO SCH ×3 (06:15→22:33)
[2016-12-08] MEDS: CARVEDILOL 6.25 MG TABLET (FP) PO SCH ×2 (10:36→22:33)
[2016-12-08] MEDS: CLOPIDOGREL BISULFATE 75 MG TABLET (FP) PO SCH (10:36)
[2016-12-08] MEDS: SEVELAMER CARBONATE 800 MG TAB (FP) PO SCH ×4 (10:36→17:27)
[2016-12-08] MEDS: levETIRAcetam 500 MG TABLET (FP) PO SCH (10:36)
[2016-12-08] MEDS: LACTOBACILLUS ACIDOPHILUS 1 EACH TAB (FP) PO SCH (10:36)
[2016-12-08] MEDS: FUROSEMIDE 40 MG TABLET (FP) PO SCH (10:36)
[2016-12-08] MEDS: INSULIN DETEMIR 100 UNITS/ML MDV SQ SCH ×2 (10:37→22:35)
[2016-12-08] MEDS: BACITRACIN 15 GM TUBE TOPICAL OINTMENT TP SCH (10:37)
[2016-12-08] MEDS: HEPARIN NA (PORCINE) 5,000 UNITS/ML 1ML VIAL SQ SCH ×2 (10:39→22:33)
[2016-12-08] MEDS: DIVALPROEX SODIUM 250 MG TABLET E.C. (FP) PO SCH (10:57)
--- NOTE | 2016-12-08 11:21 | HP ---
Admitting History and Physical - Primary Care Physician PCP: Krystal Sepulveda - Admission Chief Complaint: DIARRHEA/FEVER/CHILLS/WOUND ULCERS History of Present Illness: PATIENT WITH DM/MULTIPLE SKIN ULCERS/S/P LEFT BKA, NON-COMPLIANT WITH MEDICATIONS AND DIET, HERE WITH FEVER, CHILLS, DIARRRHEA FOR OVER 1 WEEK, DENIES BLOOD IN STOOL. 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 Home Medications - Allergies Allergies/Adverse Reactions: Allergies Allergy/AdvReac Type Severity Reaction Status Date / Time banana Allergy Verified 12/07/16 11:33 No Known Drug Allergies Allergy Verified 12/07/16 11:33 - Home Medications Home Medications: Ambulatory Orders Ascorbate Calcium [Vitamin C] 500 mg PO DAILY 06/22/16 Calcitriol [Calcitriol -] 0.25 mcg PO DAILY 06/22/16 Clopidogrel Bisulfate [Clopidogrel] 75 mg PO DAILY 06/22/16 Divalproex [Depakote -] 250 mg PO BID 06/22/16 Levetiracetam [Keppra Xr -] 500 mg PO DAILY 06/22/16 Sevelamer HCl [Renagel] 800 mg PO TID 06/22/16 Atorvastatin Ca [Lipitor] 20 mg PO HS #30 tablet 06/29/16 Acetaminophen [Tylenol .Regular Strength -] 650 mg PO Q4H PRN #0 tablet Bacitracin - [Bacitracin Topical Ointment -] 1 applic TP DAILY tube 09/26/16 Carvedilol [Coreg -] 6.25 mg PO BID tablet 09/26/16 Furosemide [Lasix -] 20 mg PO DAILY #30 tablet 09/26/16 Heparin - 5,000 unit SQ BID vial 09/26/16 Insulin (Levemir) [Levemir Vial] 10 units SQ BIDI #10 ml 09/26/16 Insulin Sliding Scale [Novolog Vial Sliding Scale -] 1 vial SQ ACHS units 09/26 Lactobacillus Acidophilus [Bacid -] 1 tab PO DAILY tab 09/26/16 Mirtazapine [Remeron -] 30 mg PO HS #60 tablet 09/26/16 Oxycodone HCl [Roxicodone -] 5 mg PO Q6H PRN #0 tablet MDD 4 09/26/16 Potassium Chloride [K-Dur -] 20 meq PO DAILY #30 tab 09/26/16 Family Disease History - Family Disease History Family Disease History: Diabetes: Sister Review of Systems - Review of Systems Constitutional: reports: Chills, Fever, Loss of Appetite, Malaise, Weakness Eyes: reports: No Symptoms HENT: reports: No Symptoms Neck: reports: No Symptoms Cardiovascular: reports: No Symptoms Respiratory: reports: No Symptoms Gastrointestinal: reports: Diarrhea, Indigestion Genitourinary: reports: Incontinence Musculoskeletal: reports: Extremity Pain, Muscle Weakness Integumentary: reports: Blister, Incision Neurological: reports: Pre-Existing Deficit, Weakness Endocrine: reports: No Symptoms Hematology/Lymphatic: reports: No Symptoms Psychiatric: reports: No Symptoms Physical Examination Vital Signs: Vital Signs Temperature 97.4 F L 12/08/16 09:26 Pulse Rate 67 12/08/16 09:26 Respiratory Rate 20 12/08/16 09:26 Blood Pressure 102/64 12/08/16 09:26 O2 Sat by Pulse Oximetry (%) 96 12/07/16 21:00 Constitutional: Yes: Mild Distress Eyes: Yes: WNL HENT: Yes: WNL Neck: Yes: WNL Cardiovascular: Yes: WNL Respiratory: Yes: WNL Gastrointestinal: Yes: WNL Renal/: Yes: WNL, Incontinence Musculoskeletal: Yes: Muscle Weakness Extremities: Yes: Amputation, Other Edema: No Peripheral Pulses WNL: Yes Integumentary: Yes: Pressure Ulcer, Venous Stasis Changes Wound/Incision: Yes: Open to air, Dressing Removed Neurological: Yes: Pre-Existing Deficit, Unsteady Gait, Weakness ...Motor Strength: LLE, RLE Psychiatric: Yes: Other Problem List - Problems (1) Diarrhea Code(s): R19.7 - DIARRHEA, UNSPECIFIED (2) 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 complication Code(s): E11.29 - TYPE 2 DIABETES MELLITUS W OTH DIABETIC KIDNEY COMPLICATION (3) Weakness Code(s): R53.1 - WEAKNESS (4) Wound of lower extremity Code(s): S81.809A - UNSPECIFIED OPEN WOUND, UNSPECIFIED LOWER LEG, INIT ENCNTR (5) Diabetes Code(s): E11.9 - TYPE 2 DIABETES MELLITUS WITHOUT COMPLICATIONS (6) Hx of BKA Code(s): Z89.519 - ACQUIRED ABSENCE OF UNSPECIFIED LEG BELOW KNEE (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 Code(s): Z79.4 - JOB SETTER (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 OF INSULIN (8) Wound infection Code(s): T14.8 - OTHER INJURY OF UNSPECIFIED BODY REGION L08.9 - LOCAL INFECTION OF THE SKIN AND SUBCUTANEOUS TISSUE, UNSP (9) Anemia Code(s): D64.9 - ANEMIA, UNSPECIFIED (10) Diabetes mellitus type 2 in nonobese Code(s): E11.9 - TYPE 2 DIABETES MELLITUS WITHOUT COMPLICATIONS (11) Diabetic foot ulcer Code(s): E11.621 - TYPE 2 DIABETES MELLITUS WITH FOOT ULCER L97.509 - NON-PRESSURE CHRONIC ULCER OTH PRT UNSP FOOT W UNSP SEVERITY Qualifiers: Diabetic foot ulcer location: midfoot Diabetes mellitus type: other specified (including KEREN) Laterality: left Non-pressure ulcer stage: unspecified non-pressure ulcer stage Qualified Code(s): E13.621 - Other specified diabetes mellitus with foot ulcer; L97.409 - Non-pressure chronic ulcer of unspecified heel and midfoot with unspecified severity (12) Diabetic neuropathy Code(s): E11.40 - TYPE 2 DIABETES MELLITUS WITH DIABETIC NEUROPATHY, UNSP Qualifiers: Diabetes mellitus type: other specified (including KEREN) Diabetes mellitus complication detail: diabetic polyneuropathy Qualified Code(s): E13.42 - Other specified diabetes mellitus with diabetic polyneuropathy (13) Hyperglycemia without ketosis Code(s): R73.9 - HYPERGLYCEMIA, UNSPECIFIED (14) Hyperlipemia Code(s): E78.5 - HYPERLIPIDEMIA, UNSPECIFIED (15) Hypertension Code(s): I10 - ESSENTIAL (PRIMARY) HYPERTENSION (16) Peripheral neuropathy Code(s): G62.9 - POLYNEUROPATHY, UNSPECIFIED (17) Uncontrolled diabetes mellitus Code(s): E11.65 - TYPE 2 DIABETES MELLITUS WITH HYPERGLYCEMIA Qualifiers: Diabetes mellitus type: type 2 Diabetes mellitus complication detail: with peripheral angiopathy with gangrene Assessment/Plan GI WORKUP CHECK STOOLS CDIFF DM CONTROL DIETARY CONSULT WILL NEED SNF WOOUND CARE
--- NOTE | 2016-12-08 11:50 | PN ---
GI Progress Note Subjective: diarrhea resolved, toleratd clear liquids, no nausea and no vomiting - Objective Vital Signs: Vital Signs Temperature 97.4 F L 12/08/16 09:26 Pulse Rate 67 12/08/16 09:26 Respiratory Rate 20 12/08/16 09:26 Blood Pressure 102/64 12/08/16 09:26 O2 Sat by Pulse Oximetry (%) 96 12/07/16 21:00 Constitutional: Well Nourished Eyes: Yes: Conjunctiva Clear HENT: Yes: Atraumatic, Tonsillar Exudate Neck: Yes: Tenderness Respiratory: Yes: CTA Bilaterally ...Palpate: Yes: Soft. No: Firm/Rigid, Guarding, Hepatomegaly, Mass, Pulsatile Mass, Splenomegaly, Tenderness Problem List - Problems (1) Infectious diarrhea Assessment/Plan: --resolving R> Flagyl 500mg tid advance diet Code(s): A09 - INFECTIOUS GASTROENTERITIS AND COLITIS, UNSPECIFIED
[2016-12-08] MEDS: PANTOPRAZOLE 40 MG TABLET (FP) PO SCH (13:20)
--- NOTE | 2016-12-08 13:57 | PN ---
Progress Note (short form) - Note Progress Note: ID Consult dictated Gastroenteritis Possible infectious v. C diff Infected L BKA stump wound DM CKD Stool studies PO flagyl IV Vancomycin
[2016-12-08] MEDS ORDERED: VANCOMYCIN 1 GRAM (PRE-DOCKED) 250 ML IVPB SCH (14:00)
--- NOTE | 2016-12-08 15:31 | CONS ---
DATE OF CONSULTATION: DATE OF DICTATION: 12/08/2016 The patient is a 61-year-old male, diabetic, with a history of diabetic foot infections and right [id number] amputation, evaluated for diarrhea and infected skin wounds. The patient was recently hospitalized at [facility] in August 2016, at which time he underwent a left BKA. His hospital course at that time was complicated by enterococcal bacteremia, for which he received a 2-week course of IV antibiotic therapy. He reports he has been off antibiotic therapy since that time. He has a history of poor adherence and followup. He now presents with a 1-week history of persistent nonbloody diarrhea, generalized weakness and fatigue. He was evaluated in the emergency room, where he was found to be chronically ill-appearing, dehydrated. He was noted to have ulcerations present on the left BKA stump site with some surrounding erythema. He denies any fever or chills. Past medical history positive for diabetes mellitus, coronary artery disease, hypertension, hyperlipidemia, COPD, history of enterococcal sepsis, coronary artery disease status post stent. He also has a history of MRSA infection in the soft tissue. PAST SURGICAL HISTORY: Status post left [id number] amputation in August 2016, and amputation of toes on the right foot. No known drug allergies. Medications at the present time include p.o. Flagyl, heparin, Depakote, Keppra, Remeron, Bacid, Coreg, Levemir, Lasix, oxycodone, Plavix, Protonix. SOCIAL HISTORY: He lives in the community. Denies active tobacco, alcohol, or illicit drug use. SYSTEMS REVIEW: Neurologic: No loss of consciousness, seizure activity, or focal weakness. Cardiac: Negative chest pain or palpitations. Respiratory: Negative cough or sputum production. Gastrointestinal: As per HPI. Genitourinary: Chronic kidney disease. LABORATORY DATA: White count 4.9, hematocrit 30.5, platelet count 190. BUN 39, creatinine 2.0. Urinalysis: 2 white cells. Stool cultures are pending. PHYSICAL EXAMINATION: General: He is awake, chronically ill appearing, and pale. Vital Signs: Temperature 97.4. Blood pressure 102/64. Pulse 97, regular. Respirations 20 per minute. Eyes: Sclerae anicteric. Heart Sounds: S1, S2. Lungs: Clear. Abdomen: Soft, nontender. Extremities: Examination of the left BKA stump site, there is a 2-cm ulceration present over the left patella, with fibrinous base. There is surrounding erythema. There is no expressible pus. The left BKA surgical wound is well-healed; however, there are shallow-based ulcerations present, both medially and laterally, with some mild erythema. No purulent drainage. Patient would not allow examination of the right foot. IMPRESSION: 1. Diarrhea, possible infectious colitis versus Clostridium difficile colitis. 2. Infected left below-knee amputation stump site wounds. 3. Diabetes mellitus. 4. History of methicillin-resistant Staphylococcus aureus. 5. History of enterococcal bacteremia. 6. Chronic kidney disease. Await stool studies including C. difficile, culture and sensitivity, ova and parasites. Continue p.o. Flagyl. Will obtain blood cultures and give vancomycin empirically for possibility of recurrent bacteremia. Local wound care. Thank you for the kind referral. LANA FOX M.D. [id number]
[2016-12-08] MEDS: METOCLOPRAMIDE HCL 10 MG TABLET (FP) PO SCH (17:27)
[2016-12-08] MEDS ORDERED: INSULIN (NOVOLOG) ASPART 100 UNITS/ML 10ML VIAL ONE (22:22)
[2016-12-08] MEDS: oxyCODONE HCL 5 MG TABLET PO PRN (22:29)
[2016-12-08] MEDS: MIRTAZAPINE 30 MG TABLET (FP) PO SCH (22:31)
[2016-12-09] MEDS: metroNIDAZOLE 250 MG TABLET PO SCH ×3 (06:04→21:28)
[2016-12-09] MEDS: INSULIN SLIDING SCALE (NOVOLOG) 1 VIAL SQ SCH ×4 (06:05→21:45)
[2016-12-09] MEDS: METOCLOPRAMIDE HCL 10 MG TABLET (FP) PO SCH ×3 (06:05→17:10)
[2016-12-09] MEDS: SEVELAMER CARBONATE 800 MG TAB (FP) PO SCH ×3 (08:29→17:10)
[2016-12-09] MEDS: CARVEDILOL 6.25 MG TABLET (FP) PO SCH ×2 (09:49→10:07)
[2016-12-09] MEDS: levETIRAcetam 500 MG TABLET (FP) PO SCH ×2 (09:49→10:07)
[2016-12-09] MEDS: FUROSEMIDE 40 MG TABLET (FP) PO SCH ×2 (09:49→10:07)
[2016-12-09] MEDS: CLOPIDOGREL BISULFATE 75 MG TABLET (FP) PO SCH ×2 (09:49→10:07)
[2016-12-09] MEDS: PANTOPRAZOLE 40 MG TABLET (FP) PO SCH ×2 (09:49→10:07)
[2016-12-09] MEDS: LACTOBACILLUS ACIDOPHILUS 1 EACH TAB (FP) PO SCH ×2 (09:50→10:06)
[2016-12-09] MEDS: HEPARIN NA (PORCINE) 5,000 UNITS/ML 1ML VIAL SQ SCH ×2 (09:57→21:28)
[2016-12-09] MEDS: INSULIN DETEMIR 100 UNITS/ML MDV SQ SCH ×2 (09:58→21:45)
[2016-12-09] MEDS: BACITRACIN 15 GM TUBE TOPICAL OINTMENT TP SCH (09:59)
[2016-12-09] MEDS: DIVALPROEX SODIUM 250 MG TABLET E.C. (FP) PO SCH (09:59)
[2016-12-09] MEDS ORDERED: FUROSEMIDE 40 MG/4 ML INJECTABLE VIAL IVPUSH SCH (11:00)
[2016-12-09 11:38] LABS: MCH 33.6 pg (25.7-33.7); MCHC 32.3 g/dl (32.0-35.9); MEAN CELL VOLUME 104.3 fl (80-96); MEAN PLT VOLUME 8.8 fl (7.5-11.1); PLATELET COUNT 121 K/MM3 (134-434); RDW 19.1 % (11.9-15.9); WHITE BLOOD COUNT 4.6 K/mm3 (4.0-10.0)
[2016-12-09 12:02] LABS: ALBUMIN 3.3 g/dl (3.4-5.0); ANION GAP 9 (8-16); CALCIUM 8.6 mg/dL (8.5-10.1); CO2 24 mmol/L (21-32); CREATININE 2.5 mg/dL (0.7-1.3); GLUCOSE,RANDOM 129 mg/dL (74-106); SGOT/AST 42 U/L (15-37); SGPT/ALT 122 U/L (12-78); TOT PROT 7.2 g/dl (6.4-8.2)
[2016-12-09 12:17] LABS: ALK PHOS 128 U/L (45-117); BILIRUBIN,TOTAL 1.2 mg/dL (0.2-1.0)
--- NOTE | 2016-12-09 13:26 | PN ---
Progress Note, Physician Chief Complaint: diarrhea History of Present Illness: comfortable in bed, doesn't want to be bothered.minimal answer to questions, alert, was refusing medications and blood glucose testing, in NAD at the moment. - Current Medication List Current Medications: Active Medications Bacitracin (Bacitracin -) 1 applic TP DAILY [facility] Last Admin: 12/09/16 09:59 Dose: Not Given Carvedilol (Coreg -) 6.25 mg PO BID [facility] Last Admin: 12/09/16 10:07 Dose: Not Given Clopidogrel Bisulfate (Plavix -) 75 mg PO DAILY [facility] Last Admin: 12/09/16 10:07 Dose: Not Given Divalproex Sodium (Depakote -) 250 mg PO DAILY [facility] Last Admin: 12/09/16 09:59 Dose: Not Given Furosemide (Lasix Injection -) 40 mg IVPUSH DAILY [facility] Heparin Sodium (Porcine) (Heparin -) 5,000 unit SQ BID [facility] Last Admin: 12/09/16 09:57 Dose: Not Given Vancomycin HCl (Vancomycin (Pre-Docked)) 250 mls @ 200 mls/hr IVPB DAILY@1400 [facility] Last Admin: 12/08/16 15:11 Dose: 200 mls/hr Pantoprazole Sodium (Protonix 40mg Ivpb (Pre-Docked)) 100 mls @ 200 mls/hr IVPB DAILY [facility] Insulin Aspart (Novolog Vial Sliding Scale -) 1 vial SQ ACHS [facility] PRN Reason: Protocol Last Admin: 12/09/16 06:05 Dose: Not Given Insulin Detemir (Levemir Vial) 10 units SQ BID [facility] Last Admin: 12/09/16 09:58 Dose: Not Given Lactobacillus Acidophilus (Bacid -) 1 tab PO DAILY [facility] Last Admin: 12/09/16 10:06 Dose: Not Given Levetiracetam (Keppra -) 500 mg PO DAILY [facility] Last Admin: 12/09/16 10:07 Dose: Not Given Metoclopramide HCl (Reglan -) 5 mg PO TIDAC [facility] Last Admin: 12/09/16 06:05 Dose: 5 mg Metronidazole (Flagyl -) 500 mg PO TID [facility] Last Admin: 12/09/16 06:04 Dose: 500 mg Mirtazapine (Remeron -) 30 mg PO HS [facility] Last Admin: 07/09/17 22:31 Dose: 30 mg Oxycodone HCl (Roxicodone -) 5 mg PO Q4H PRN Last Admin: 12/08/16 22:29 Dose: 5 mg Sevelamer Carbonate (Renvela -) 800 mg PO TIDCM [facility] Last Admin: 12/09/16 08:29 Dose: Not Given - Objective Vital Signs: Vital Signs Temperature 97.0 F L 12/09/16 06:00 Pulse Rate 71 12/09/16 06:00 Respiratory Rate 20 12/09/16 06:00 Blood Pressure 100/62 12/09/16 06:00 O2 Sat by Pulse Oximetry (%) 98 12/08/16 21:00 Constitutional: Yes: Well Nourished, No Distress, Calm Cardiovascular: Yes: Regular Rate and Rhythm Respiratory: Yes: Regular Gastrointestinal: Yes: Normal Bowel Sounds, Tenderness (RUQ and LUQ), Tenderness , Epigastrium Neurological: Yes: Alert, Oriented Psychiatric: Yes: Alert Labs: CBC, BMP 12/09/16 11:25 12/09/16 11:25 Problem List - Problems (1) CHF exacerbation Assessment/Plan: -iv diruretic -seen by cardiology -monitor daily weight and urine output Code(s): I50.9 - HEART FAILURE, UNSPECIFIED Qualifiers: Congestive heart failure type: unspecified congestive heart failure type Qualified Code(s): I50.9 - Heart failure, unspecified (2) Diarrhea Assessment/Plan: -on IV abx, -seen by ID -awaiting stool sample for c diff Code(s): R19.7 - DIARRHEA, UNSPECIFIED (3) 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 complication Assessment/Plan: -hga1c controlled -on insulin Code(s): E11.29 - TYPE 2 DIABETES MELLITUS W OTH DIABETIC KIDNEY COMPLICATION (4) Wound of lower extremity Assessment/Plan: -LLE stump -iv abx Code(s): S81.809A - UNSPECIFIED OPEN WOUND, UNSPECIFIED LOWER LEG, INIT ENCNTR (5) Renal insufficiency Assessment/Plan: -seen by renal -monitor renal fxn -labs in AM Code(s): N28.9 - DISORDER OF KIDNEY AND URETER, UNSPECIFIED Assessment/Plan -IV diuretic -daily weights -urine output -seen by cardiology, renal and ID -stool for cdiff, ova and parasite -IV abx -on insulin
--- NOTE | 2016-12-09 13:52 | EKG ---
Test Reason : Blood Pressure : / mmHG Vent. Rate : 077 BPM Atrial Rate : 077 BPM P-R Int : 184 ms QRS Dur : 114 ms QT Int : 472 ms P-R-T Axes : 075 -18 -88 degrees QTc Int : 534 ms SINUS RHYTHM WITH FREQUENT PREMATURE VENTRICULAR COMPLEXES INCOMPLETE LEFT BUNDLE BRANCH BLOCK NONSPECIFIC T WAVE ABNORMALITY PROLONGED QT ABNORMAL ECG WHEN COMPARED WITH ECG OF 01-DEC-2016 07:49, PREMATURE VENTRICULAR COMPLEXES ARE NOW PRESENT Confirmed by MARCELLO JACKMAN MD ([id number]) on 12/09/2016 1:52:11 PM Referred By: Confirmed By:MARCELLO JACKMAN MD
[2016-12-09] MEDS ORDERED: oxyCODONE HCL 5 MG TABLET PO PRN (13:57)
[2016-12-09] MEDS: VANCOMYCIN 1 GRAM (PRE-DOCKED) 250 ML IVPB SCH (14:16)
--- NOTE | 2016-12-09 14:37 | CONSULT ---
Consult Consult Specialty:: Nephrology ( [facility]/ Jose Roberto) Referred by:: Dr. Rios Reason for Consultation:: Abnormal kidney functions - History of Present Illness Chief Complaint: This is a 61 y/o male,admitted with feelling weak, and watery diarrhea. The diarrhea has resolved since admission. 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 Also s/p amputation of right toes. His history is significant fro DM2 ( Insulin dependent), Hypertension, Hyperlipidemia, PVD, MRSA infection of the wound, non-compliance. His blood glucose is fluctuating frequently. 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: Peripheral Neuropathy Cardio/Vascular: Yes: CAD (CABG 2009., stents x5), CHF, HTN Pulmonary: Yes: COPD Gastrointestinal: Yes: Constipation Psych: Yes: Anxiety, Depression Musculoskeletal: Yes: Other Endocrine: Yes: Diabetes Mellitus - Past Surgical History Past Surgical History: Yes: Amputation (left TMT, right 1st and 2nd toes), CABG (2008 at [facility]) - Alcohol/Substance Use Hx Alcohol Use: No - Smoking History Smoking history: Never smoked Have you smoked in the past 12 months: No Aproximately how many cigarettes per day: 0 - Social History Usual Living Arrangement: Snf ADL: Independent 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 Home Medications - Allergies Allergies/Adverse Reactions: Allergies Allergy/AdvReac Type Severity Reaction Status Date / Time banana Allergy Verified 12/07/16 11:33 No Known Drug Allergies Allergy Verified 12/07/16 11:33 - Home Medications Home Medications: Ambulatory Orders Ascorbate Calcium [Vitamin C] 500 mg PO DAILY 06/22/16 Calcitriol [Calcitriol -] 0.25 mcg PO DAILY 06/22/16 Clopidogrel Bisulfate [Clopidogrel] 75 mg PO DAILY 06/22/16 Divalproex [Depakote -] 250 mg PO BID 06/22/16 Levetiracetam [Keppra Xr -] 500 mg PO DAILY 06/22/16 Sevelamer HCl [Renagel] 800 mg PO TID 06/22/16 Atorvastatin Ca [Lipitor] 20 mg PO HS #30 tablet 06/29/16 Acetaminophen [Tylenol .Regular Strength -] 650 mg PO Q4H PRN #0 tablet Bacitracin - [Bacitracin Topical Ointment -] 1 applic TP DAILY tube 09/26/16 Carvedilol [Coreg -] 6.25 mg PO BID tablet 09/26/16 Furosemide [Lasix -] 20 mg PO DAILY #30 tablet 09/26/16 Heparin - 5,000 unit SQ BID vial 09/26/16 Insulin (Levemir) [Levemir Vial] 10 units SQ BIDI #10 ml 09/26/16 Insulin Sliding Scale [Novolog Vial Sliding Scale -] 1 vial SQ ACHS units 09/26 Lactobacillus Acidophilus [Bacid -] 1 tab PO DAILY tab 09/26/16 Mirtazapine [Remeron -] 30 mg PO HS #60 tablet 09/26/16 Oxycodone HCl [Roxicodone -] 5 mg PO Q6H PRN #0 tablet MDD 4 09/26/16 Potassium Chloride [K-Dur -] 20 meq PO DAILY #30 tab 09/26/16 Family Disease History - Family Disease History Family Disease History: Diabetes: Sister Review of Systems - Review of Systems Constitutional: reports: Loss of Appetite, Malaise, Weakness HENT: denies: No Symptoms Neck: denies: No Symptoms Cardiovascular: denies: Chest Pain, Palpitations, Shortness of Breath Respiratory: denies: Cough Gastrointestinal: reports: Bloating, Diarrhea Genitourinary: denies: Burning Musculoskeletal: reports: Back Pain Physical Exam Vital Signs: Vital Signs Temperature 97.0 F L 12/09/16 14:00 Pulse Rate 61 12/09/16 14:00 Respiratory Rate 17 12/09/16 14:00 Blood Pressure 91/57 12/09/16 14:00 O2 Sat by Pulse Oximetry (%) 98 12/08/16 21:00 Constitutional: Yes: No Distress, Poor Hygeine Eyes: Yes: Conjunctiva Clear HENT: Yes: Atraumatic Neck: Yes: Supple, Trachea Midline Cardiovascular: Yes: Regular Rate and Rhythm, S2 Respiratory: Yes: Regular, CTA Bilaterally, Diminished. No: Rales, Rhonchi Gastrointestinal: Yes: Normal Bowel Sounds, Soft Renal/: No: CVA Tenderness - Left, CVA Tenderness - Right Extremities: Yes: Amputation (Rt BKA), Delayed Capillary Refill Wound/Incision: Yes: Draining, Reddened Labs: CBC, BMP 12/09/16 11:25 12/09/16 11:25 Problem List - Problems (1) Diarrhea Code(s): R19.7 - DIARRHEA, UNSPECIFIED (2) 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 complication Code(s): E11.29 - TYPE 2 DIABETES MELLITUS W OTH DIABETIC KIDNEY COMPLICATION (3) Weakness Code(s): R53.1 - WEAKNESS (4) RUBY (acute kidney injury) Code(s): N17.9 - ACUTE KIDNEY FAILURE, UNSPECIFIED (5) Chronic kidney disease, stage 3 (moderate) Code(s): N18.3 - CHRONIC KIDNEY DISEASE, STAGE 3 (MODERATE) (6) Diabetic foot infection Code(s): E11.69 - TYPE 2 DIABETES MELLITUS WITH OTHER SPECIFIED COMPLICATION L08.9 - LOCAL INFECTION OF THE SKIN AND SUBCUTANEOUS TISSUE, UNSP (7) Poor nutrition Code(s): E63.9 - NUTRITIONAL DEFICIENCY, UNSPECIFIED (8) Diabetic foot ulcer Code(s): E11.621 - TYPE 2 DIABETES MELLITUS WITH FOOT ULCER L97.509 - NON-PRESSURE CHRONIC ULCER OTH PRT UNSP FOOT W UNSP SEVERITY Qualifiers: Diabetic foot ulcer location: midfoot Diabetes mellitus type: other specified (including KEREN) Laterality: left Non-pressure ulcer stage: unspecified non-pressure ulcer stage Qualified Code(s): E13.621 - Other specified diabetes mellitus with foot ulcer; L97.409 - Non-pressure chronic ulcer of unspecified heel and midfoot with unspecified severity (9) Hyperlipemia Code(s): E78.5 - HYPERLIPIDEMIA, UNSPECIFIED (10) Hypertension Code(s): I10 - ESSENTIAL (PRIMARY) HYPERTENSION (11) PAD (peripheral artery disease) Code(s): I73.9 - PERIPHERAL VASCULAR DISEASE, UNSPECIFIED Assessment/Plan 61 y/o male admitted with infected foot wound. The diarrhea he came in with has resolved. Currently on Vancomycin and Flagyl for infected foot wound. Acute kidney Injury, most likely related to the infectious process and the hemodynamic changes associated with the same. 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 Peripheral Arterial Disease, with ischemic feet, s/p amputation. PLAN: IV antibiotics as ordered. Will monitor the Renal functions. Maintain euvolemia. Will check Serum Phosphorous. ( Patient on Sevlamer) Thank you. Will follow again.
--- NOTE | 2016-12-09 15:05 | CON.CARD ---
Consult Consult Specialty:: Cardiology Reason for Consultation:: Heart failure - History of Present Illness History of Present Illness: 61 M with D<M, ischemic cardiomyopathy post CABG and stents years ago, PVD post Lt BKA. He is admitted with diarrhea and stump infection. Stopped all medicaitons for an unspecified time prior to this admission. He has dyspnea at rest but reports no cough or edema. There is constant chest pressure which was present at prior vists. There are prior heart failure admissions. 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: Peripheral Neuropathy Cardio/Vascular: Yes: CAD (CABG 2009., stents x5), CHF, HTN Pulmonary: Yes: COPD Gastrointestinal: Yes: Constipation Renal/: Yes: Renal Inusuff Psych: Yes: Anxiety, Depression Musculoskeletal: Yes: Other Endocrine: Yes: Diabetes Mellitus - Past Surgical History Past Surgical History: Yes: Amputation (left TMT, right 1st and 2nd toes), CABG (2008 at [facility]) - Alcohol/Substance Use Hx Alcohol Use: No - Smoking History Smoking history: Never smoked Have you smoked in the past 12 months: No Aproximately how many cigarettes per day: 0 - Social History Usual Living Arrangement: [facility] ADL: Independent 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 Home Medications - Allergies Allergies/Adverse Reactions: Allergies Allergy/AdvReac Type Severity Reaction Status Date / Time banana Allergy Verified 12/07/16 11:33 No Known Drug Allergies Allergy Verified 12/07/16 11:33 - Home Medications Home Medications: Ambulatory Orders Ascorbate Calcium [Vitamin C] 500 mg PO DAILY 06/22/16 Calcitriol [Calcitriol -] 0.25 mcg PO DAILY 06/22/16 Clopidogrel Bisulfate [Clopidogrel] 75 mg PO DAILY 06/22/16 Divalproex [Depakote -] 250 mg PO BID 06/22/16 Levetiracetam [Keppra Xr -] 500 mg PO DAILY 06/22/16 Sevelamer HCl [Renagel] 800 mg PO TID 06/22/16 Atorvastatin Ca [Lipitor] 20 mg PO HS #30 tablet 06/29/16 Acetaminophen [Tylenol .Regular Strength -] 650 mg PO Q4H PRN #0 tablet Bacitracin - [Bacitracin Topical Ointment -] 1 applic TP DAILY tube 09/26/16 Carvedilol [Coreg -] 6.25 mg PO BID tablet 09/26/16 Furosemide [Lasix -] 20 mg PO DAILY #30 tablet 09/26/16 Heparin - 5,000 unit SQ BID vial 09/26/16 Insulin (Levemir) [Levemir Vial] 10 units SQ BIDI #10 ml 09/26/16 Insulin Sliding Scale [Novolog Vial Sliding Scale -] 1 vial SQ ACHS units 09/26 Lactobacillus Acidophilus [Bacid -] 1 tab PO DAILY tab 09/26/16 Mirtazapine [Remeron -] 30 mg PO HS #60 tablet 09/26/16 Oxycodone HCl [Roxicodone -] 5 mg PO Q6H PRN #0 tablet MDD 4 09/26/16 Potassium Chloride [K-Dur -] 20 meq PO DAILY #30 tab 09/26/16 Family Disease History - Family Disease History Family Disease History: Diabetes: Sister Review of Systems - Review of Systems Constitutional: reports: Lethargy, Loss of Appetite Eyes: reports: No Symptoms HENT: reports: No Symptoms Neck: reports: No Symptoms Cardiovascular: reports: Shortness of Breath Respiratory: reports: Cough Genitourinary: reports: No Symptoms Musculoskeletal: reports: No Symptoms Vital Signs: Vital Signs Temperature 97.0 F L 12/09/16 14:00 Pulse Rate 61 12/09/16 14:00 Respiratory Rate 17 12/09/16 14:00 Blood Pressure 91/57 12/09/16 14:00 O2 Sat by Pulse Oximetry (%) 98 12/08/16 21:00 Constitutional: Yes: No Distress, Thin Eyes: Yes: Conjunctiva Clear, EOM Intact HENT: Yes: Atraumatic, Normocephalic Neck: Yes: Supple, Trachea Midline Respiratory: Yes: Regular, Rales Gastrointestinal: Yes: Normal Bowel Sounds, Soft Cardiovascular: Yes: Regular Rate and Rhythm JVD: Yes Carotid Bruit: No PMI: Non-Displaced Heart Sounds: Yes: S1, S2 Murmur: No: Systolic Murmur, Diastolic Murmur, Grade 1, Grade 2, Grade 3, Grade 4, Grade 5, Grade 6 Extremities: Yes: Other (Lt BKA) Edema: No - Other Data Labs, Other Data: CBC, BMP 12/09/16 11:25 12/09/16 11:25 Troponin, BNP 12/09/16 11:25 B-Natriuretic Peptide 39477.47 H Troponin, BNP 12/09/16 11:25 B-Natriuretic Peptide 16735.47 H Echo: Report Reviewed Ejection Fraction %: LVEF > or = 40 % Imaging - Results Chest X-ray: Report Reviewed EKG: Image Reviewed (NSR anterolateral ischemia.) Problem List - Problems (1) CHF exacerbation Code(s): I50.9 - HEART FAILURE, UNSPECIFIED Qualifiers: Congestive heart failure type: unspecified congestive heart failure type Qualified Code(s): I50.9 - Heart failure, unspecified (2) Chronic kidney disease, stage 3 (moderate) Code(s): N18.3 - CHRONIC KIDNEY DISEASE, STAGE 3 (MODERATE) Assessment/Plan Ischemic CM with chronic HFrEF and CKD 3. Stress test 09/2015 Fixed anterospetal and apical infarct without ischemia and EF 28% Chronic atypical CP Diarrhea with stump infection Poor adherence. Rec: Continue with IV diuretics and monitor UO and daily weight. Reduce Coreg 3.125mg bid No ischemic changes in ECG and RIOMI negative. His chest pain is atypical and non-cardiac. Will follow with you.
[2016-12-09 15:30] LABS: ANISOCYTOSIS 1+; PLATELET ESTIMATE ADEQUATE (NORMAL); POLYCHROMASIA 1+
[2016-12-09] MEDS ORDERED: INSULIN (NOVOLOG) ASPART 100 UNITS/ML 10ML VIAL ONE (21:21)
[2016-12-09] MEDS: CARVEDILOL 3.125 MG TABLET (FP) PO SCH (21:28)
[2016-12-09] MEDS: MIRTAZAPINE 30 MG TABLET (FP) PO SCH (21:29)
[2016-12-09] MEDS ORDERED: CARVEDILOL 6.25 MG TABLET (FP) PO SCH (22:00)
[2016-12-10 06:09] LABS: SERUM IRON 62 ug/dL (38-169); TOTAL IRON BINDING CAPACITY 205 ug/dL (250-450); UIBC 143 ug/dL (111-343)
[2016-12-10] MEDS: metroNIDAZOLE 250 MG TABLET PO SCH ×3 (06:35→22:45)
[2016-12-10] MEDS: METOCLOPRAMIDE HCL 10 MG TABLET (FP) PO SCH ×3 (06:36→16:15)
[2016-12-10] MEDS ORDERED: PT OWN MED DRAWER 7, Y5N ONE (06:52)
[2016-12-10] MEDS: INSULIN SLIDING SCALE (NOVOLOG) 1 VIAL SQ SCH ×4 (07:06→22:46)
[2016-12-10 07:16] LABS: ALBUMIN 2.7 g/dl (3.4-5.0); ANION GAP 11 (8-16); CALCIUM 8.3 mg/dL (8.5-10.1); CO2 22 mmol/L (21-32); GLUCOSE,RANDOM 77 mg/dL (74-106); MAGNESIUM 2.1 mg/dL (1.8-2.4); PHOSPHOROUS 3.8 mg/dL (2.5-4.9); URIC ACID 10.1 mg/dL (2.6-7.2)
[2016-12-10 07:19] LABS: ALK PHOS 84 U/L (45-117); CREATININE 2.1 mg/dL (0.7-1.3); SGOT/AST 24 U/L (15-37); SGPT/ALT 78 U/L (12-78); TOT PROT 5.6 g/dl (6.4-8.2)
[2016-12-10] MEDS: SEVELAMER CARBONATE 800 MG TAB (FP) PO SCH ×3 (08:54→17:58)
[2016-12-10] MEDS ORDERED: PANTOPRAZOLE SODIUM 100 ML IVPB SCH (10:00)
[2016-12-10] MEDS: LACTOBACILLUS ACIDOPHILUS 1 EACH TAB (FP) PO SCH (10:25)
[2016-12-10] MEDS: BACITRACIN 15 GM TUBE TOPICAL OINTMENT TP SCH (10:26)
[2016-12-10] MEDS: levETIRAcetam 500 MG TABLET (FP) PO SCH (10:28)
[2016-12-10] MEDS: CARVEDILOL 3.125 MG TABLET (FP) PO SCH ×2 (10:28→22:45)
[2016-12-10] MEDS: FUROSEMIDE 40 MG/4 ML INJECTABLE VIAL IVPUSH SCH (10:30)
[2016-12-10] MEDS: HEPARIN NA (PORCINE) 5,000 UNITS/ML 1ML VIAL SQ SCH ×2 (10:30→22:46)
[2016-12-10] MEDS: DIVALPROEX SODIUM 250 MG TABLET E.C. (FP) PO SCH (10:30)
[2016-12-10] MEDS: CLOPIDOGREL BISULFATE 75 MG TABLET (FP) PO SCH (10:31)
[2016-12-10] MEDS: INSULIN DETEMIR 100 UNITS/ML MDV SQ SCH ×2 (10:31→22:46)
[2016-12-10] MEDS ORDERED: FUROSEMIDE 40 MG/4 ML INJECTABLE VIAL IVPUSH SCH (10:56)
--- NOTE | 2016-12-10 11:05 | PN ---
Progress Note, Physician Chief Complaint: diarrhea History of Present Illness: comfortable in bed, doesn't want to be bothered.minimal answer to questions, alert, in NAD at the moment. - Current Medication List Current Medications: Active Medications Bacitracin (Bacitracin -) 1 applic TP DAILY [facility] Last Admin: 12/10/16 10:26 Dose: 1 applic Carvedilol (Coreg -) 3.125 mg PO BID [facility] Last Admin: 12/10/16 10:28 Dose: 3.125 mg Clopidogrel Bisulfate (Plavix -) 75 mg PO DAILY [facility] Last Admin: 12/10/16 10:31 Dose: 75 mg Divalproex Sodium (Depakote -) 250 mg PO DAILY [facility] Last Admin: 12/10/16 10:30 Dose: 250 mg Furosemide (Lasix Injection -) 40 mg IVPUSH DAILY [facility] Last Admin: 12/10/16 10:30 Dose: 40 mg Heparin Sodium (Porcine) (Heparin -) 5,000 unit SQ BID [facility] Last Admin: 12/10/16 10:30 Dose: 5,000 unit Pantoprazole Sodium (Protonix 40mg Ivpb (Pre-Docked)) 100 mls @ 200 mls/hr IVPB DAILY [facility] Vancomycin HCl (Vancomycin (Pre-Docked)) 250 mls @ 200 mls/hr IVPB DAILY@1400 [facility] Last Admin: 12/09/16 14:16 Dose: 200 mls/hr Insulin Aspart (Novolog Vial Sliding Scale -) 1 vial SQ ACHS [facility] PRN Reason: Protocol Last Admin: 12/10/16 07:06 Dose: Not Given Insulin Detemir (Levemir Vial) 10 units SQ BID [facility] Last Admin: 12/10/16 10:31 Dose: 10 units Lactobacillus Acidophilus (Bacid -) 1 tab PO DAILY [facility] Last Admin: 12/10/16 10:25 Dose: 1 tab Levetiracetam (Keppra -) 500 mg PO DAILY [facility] Last Admin: 12/10/16 10:28 Dose: 500 mg Metoclopramide HCl (Reglan -) 5 mg PO TIDAC [facility] Last Admin: 12/10/16 10:28 Dose: 5 mg Metronidazole (Flagyl -) 500 mg PO TID [facility] Last Admin: 12/10/16 06:35 Dose: Not Given Mirtazapine (Remeron -) 30 mg PO HS [facility] Last Admin: 12/09/16 21:29 Dose: 30 mg Oxycodone HCl (Roxicodone -) 5 mg PO Q4H PRN Sevelamer Carbonate (Renvela -) 800 mg PO TIDCM [facility] Last Admin: 12/10/16 08:54 Dose: 800 mg - Objective Vital Signs: Vital Signs Temperature 97.0 F L 12/09/16 14:00 Pulse Rate 72 12/10/16 06:00 Respiratory Rate 20 12/10/16 06:00 Blood Pressure 116/67 12/10/16 06:00 O2 Sat by Pulse Oximetry (%) 98 12/09/16 21:00 Constitutional: Yes: Well Nourished, No Distress, Calm Cardiovascular: Yes: Regular Rate and Rhythm Respiratory: Yes: Regular Gastrointestinal: Yes: Hyperactive Bowel Sounds Musculoskeletal: Yes: WNL Extremities: Yes: Amputation (left bka) Edema: No Neurological: Yes: Alert, Oriented Psychiatric: Yes: Alert, Oriented, Agitated Labs: CBC, BMP 12/09/16 11:25 12/10/16 05:50 Problem List - Problems (1) CHF exacerbation Assessment/Plan: -iv furosemide -seen by cardiology -monitor daily weight and urine output Code(s): I50.9 - HEART FAILURE, UNSPECIFIED Qualifiers: Congestive heart failure type: unspecified congestive heart failure type Qualified Code(s): I50.9 - Heart failure, unspecified (2) Diarrhea Assessment/Plan: -on IV abx, -seen by ID -stool for c diff, O&P Code(s): R19.7 - DIARRHEA, UNSPECIFIED (3) 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 complication Assessment/Plan: -hga1c controlled -on insulin Code(s): E11.29 - TYPE 2 DIABETES MELLITUS W OTH DIABETIC KIDNEY COMPLICATION (4) Wound of lower extremity Assessment/Plan: -LLE stump with 3 openings -iv abx Code(s): S81.809A - UNSPECIFIED OPEN WOUND, UNSPECIFIED LOWER LEG, INIT ENCNTR (5) Renal insufficiency Assessment/Plan: -seen by renal -monitor renal fxn -labs in AM Code(s): N28.9 - DISORDER OF KIDNEY AND URETER, UNSPECIFIED Assessment/Plan -IV diuretic -daily weights -urine output -seen by cardiology, renal and ID -stool for cdiff, ova and parasite -IV abx -on insulin
--- NOTE | 2016-12-10 13:58 | PN ---
Progress Note, Physician Chief Complaint: Cardiology FU Less SOB History of Present Illness: 61 M with D<M, ischemic cardiomyopathy post CABG and stents years ago, PVD post Lt BKA. He is admitted with diarrhea and stump infection. Stopped all medications for an unspecified time prior to this admission. He has dyspnea at rest but reports no cough or edema. There is constant chest pressure which was present at prior visits. There are prior heart failure admissions. - Current Medication List Current Medications: Active Medications Bacitracin (Bacitracin -) 1 applic TP DAILY [facility] Last Admin: 12/10/16 10:26 Dose: 1 applic Carvedilol (Coreg -) 3.125 mg PO BID [facility] Last Admin: 12/10/16 10:28 Dose: 3.125 mg Clopidogrel Bisulfate (Plavix -) 75 mg PO DAILY [facility] Last Admin: 12/10/16 10:31 Dose: 75 mg Divalproex Sodium (Depakote -) 250 mg PO DAILY [facility] Last Admin: 12/10/16 10:30 Dose: 250 mg Furosemide (Lasix Injection -) 40 mg IVPUSH DAILY [facility] Last Admin: 12/10/16 10:30 Dose: 40 mg Heparin Sodium (Porcine) (Heparin -) 5,000 unit SQ BID [facility] Last Admin: 12/10/16 10:30 Dose: 5,000 unit Pantoprazole Sodium (Protonix 40mg Ivpb (Pre-Docked)) 100 mls @ 200 mls/hr IVPB DAILY [facility] Vancomycin HCl (Vancomycin (Pre-Docked)) 250 mls @ 200 mls/hr IVPB DAILY@1400 [facility] Last Admin: 12/09/16 14:16 Dose: 200 mls/hr Insulin Aspart (Novolog Vial Sliding Scale -) 1 vial SQ ACHS [facility] PRN Reason: Protocol Last Admin: 12/10/16 11:28 Dose: Not Given Insulin Detemir (Levemir Vial) 10 units SQ BID [facility] Last Admin: 12/10/16 10:31 Dose: 10 units Lactobacillus Acidophilus (Bacid -) 1 tab PO DAILY [facility] Last Admin: 12/10/16 10:25 Dose: 1 tab Levetiracetam (Keppra -) 500 mg PO DAILY [facility] Last Admin: 12/10/16 10:28 Dose: 500 mg Metoclopramide HCl (Reglan -) 5 mg PO TIDAC [facility] Last Admin: 12/10/16 10:28 Dose: 5 mg Metronidazole (Flagyl -) 500 mg PO TID [facility] Last Admin: 12/10/16 06:35 Dose: Not Given Mirtazapine (Remeron -) 30 mg PO HS [facility] Last Admin: 12/09/16 21:29 Dose: 30 mg Oxycodone HCl (Roxicodone -) 5 mg PO Q4H PRN Sevelamer Carbonate (Renvela -) 800 mg PO TIDCM [facility] Last Admin: 12/10/16 12:43 Dose: 800 mg - Objective Vital Signs: Vital Signs Temperature 97.0 F L 12/09/16 14:00 Pulse Rate 67 12/10/16 11:44 Respiratory Rate 18 12/10/16 11:44 Blood Pressure 92/61 12/10/16 11:44 O2 Sat by Pulse Oximetry (%) 98 12/10/16 09:00 Constitutional: Yes: Thin Eyes: Yes: WNL, Conjunctiva Clear HENT: Yes: Atraumatic, Normocephalic Cardiovascular: Yes: Regular Rate and Rhythm, JVD Respiratory: Yes: Rales Gastrointestinal: Yes: Soft Edema: No Labs: CBC, BMP 12/09/16 11:25 12/10/16 05:50 Problem List - Problems (1) CHF exacerbation Code(s): I50.9 - HEART FAILURE, UNSPECIFIED Qualifiers: Congestive heart failure type: unspecified congestive heart failure type Qualified Code(s): I50.9 - Heart failure, unspecified (2) Chronic kidney disease, stage 3 (moderate) Code(s): N18.3 - CHRONIC KIDNEY DISEASE, STAGE 3 (MODERATE) Assessment/Plan Ischemic CM with chronic HFrEF and CKD 3. Stress test 09/2015 Fixed anterospetal and apical infarct without ischemia and EF 28% Chronic atypical CP Diarrhea with stump infection Poor adherence. Rec: Mildly improved renal function with IV diuresis. Still volume up. Continue with IV diuretics. Add ASA 81mg qd. His chest pain is atypical and non-cardiac. Will follow with you.
[2016-12-10] MEDS: VANCOMYCIN 1 GRAM (PRE-DOCKED) 250 ML IVPB SCH (14:12)
[2016-12-10] MEDS: PANTOPRAZOLE SODIUM 100 ML IVPB SCH (14:15)
--- NOTE | 2016-12-10 14:25 | PN ---
Progress Note (short form) - Note Progress Note: Renal follow up for RUBY on CKD Pt seen and examined at the bedside reports feeling better but still has upset stomach, weakness no sob or chest pain no fever, chills making urine as pt the patient Vital Signs Temperature 97.0 F L 12/09/16 14:00 Pulse Rate 67 12/10/16 11:44 Respiratory Rate 18 12/10/16 11:44 Blood Pressure 92/61 12/10/16 11:44 O2 Sat by Pulse Oximetry (%) 98 12/10/16 09:00 Intake & Output 12/07/16 12/08/16 12/09/16 12/10/16 23:59 23:59 23:59 23:59 Intake Total 1350 530 200 Output Total 120 400 350 Balance 1230 130 -150 Weight 169 lb 168 lb 4 oz 162 lb 3.2 oz 162 lb 4 oz Gen: NAD, awake and alert HEENT: NC/AT, MMM, No JVD CVS: RRR, No M/R Lungs: Dec BS at the lung bases, no rales Abd: soft NT/ND Ext: s/p ampuation, no edema CBC, BMP 12/09/16 11:25 12/10/16 05:50 Current Medications Aspirin (Ecotrin -) 81 mg PO DAILY [facility] Bacitracin (Bacitracin -) 1 applic TP DAILY [facility] Last Admin: 12/10/16 10:26 Dose: 1 applic Carvedilol (Coreg -) 3.125 mg PO BID [facility] Last Admin: 12/10/16 10:28 Dose: 3.125 mg Clopidogrel Bisulfate (Plavix -) 75 mg PO DAILY [facility] Last Admin: 12/10/16 10:31 Dose: 75 mg Divalproex Sodium (Depakote -) 250 mg PO DAILY [facility] Last Admin: 12/10/16 10:30 Dose: 250 mg Furosemide (Lasix Injection -) 40 mg IVPUSH DAILY [facility] Last Admin: 12/10/16 10:30 Dose: 40 mg Heparin Sodium (Porcine) (Heparin -) 5,000 unit SQ BID [facility] Last Admin: 12/10/16 10:30 Dose: 5,000 unit Vancomycin HCl (Vancomycin (Pre-Docked)) 250 mls @ 200 mls/hr IVPB DAILY@1400 [facility] Last Admin: 12/10/16 14:12 Dose: 200 mls/hr Pantoprazole Sodium (Protonix 40mg Ivpb (Pre-Docked)) 100 mls @ 200 mls/hr IVPB DAILY [facility] Last Admin: 12/10/16 14:15 Dose: 200 mls/hr Insulin Aspart (Novolog Vial Sliding Scale -) 1 vial SQ ACHS [facility] PRN Reason: Protocol Last Admin: 12/10/16 11:28 Dose: Not Given Insulin Detemir (Levemir Vial) 10 units SQ BID [facility] Last Admin: 12/10/16 10:31 Dose: 10 units Lactobacillus Acidophilus (Bacid -) 1 tab PO DAILY [facility] Last Admin: 12/10/16 10:25 Dose: 1 tab Levetiracetam (Keppra -) 500 mg PO DAILY [facility] Last Admin: 12/10/16 10:28 Dose: 500 mg Metoclopramide HCl (Reglan -) 5 mg PO TIDAC [facility] Last Admin: 12/10/16 10:28 Dose: 5 mg Metronidazole (Flagyl -) 500 mg PO TID [facility] Last Admin: 12/10/16 14:12 Dose: 500 mg Mirtazapine (Remeron -) 30 mg PO HS [facility] Last Admin: 12/09/16 21:29 Dose: 30 mg Oxycodone HCl (Roxicodone -) 5 mg PO Q4H PRN Sevelamer Carbonate (Renvela -) 800 mg PO TIDCM [facility] Last Admin: 12/10/16 12:43 Dose: 800 mg A/p 61 year old gentleman with PMhx of RUBY/CKD (lasix Cr prior to this admission was 1.6), DM Type 2, PVD, CAD/CHF presented with diarrhea and wound infection #RUBY on CKD Etiology likely volume depletion/renal hypoperufsion in setting of diarrhea/ NSAID use and possible acute CHF Cr improved today (lasix was held yesterday but given on Friday) given IV lasix x 1 today Trend BUN/Cr Keep MAP > 65 no CRISTHIAN/ARB given acute renal insufficiency no acute indication for STEERER dose all meds for Cr Cl less then 30 Daniel Cid DO
[2016-12-10 21:01] VITALS: TEMP 97.2
[2016-12-10] MEDS: MIRTAZAPINE 30 MG TABLET (FP) PO SCH (22:46)
[2016-12-11] MEDS: INSULIN SLIDING SCALE (NOVOLOG) 1 VIAL SQ SCH ×4 (06:13→21:35)
[2016-12-11] MEDS: metroNIDAZOLE 250 MG TABLET PO SCH ×3 (06:13→21:33)
[2016-12-11] MEDS: METOCLOPRAMIDE HCL 10 MG TABLET (FP) PO SCH ×3 (06:14→18:18)
[2016-12-11] MEDS: SEVELAMER CARBONATE 800 MG TAB (FP) PO SCH ×3 (08:23→18:18)
--- NOTE | 2016-12-11 10:51 | PN ---
Progress Note, Physician History of Present Illness: Awake, alert No complaints Denies diarrhea No fever/ chills - Current Medication List Current Medications: Active Medications Aspirin (Ecotrin -) 81 mg PO DAILY [facility] Bacitracin (Bacitracin -) 1 applic TP DAILY [facility] Last Admin: 12/10/16 10:26 Dose: 1 applic Carvedilol (Coreg -) 3.125 mg PO BID [facility] Last Admin: 12/10/16 22:45 Dose: Not Given Clopidogrel Bisulfate (Plavix -) 75 mg PO DAILY [facility] Last Admin: 12/10/16 10:31 Dose: 75 mg Divalproex Sodium (Depakote -) 250 mg PO DAILY [facility] Last Admin: 12/10/16 10:30 Dose: 250 mg Furosemide (Lasix Injection -) 40 mg IVPUSH DAILY [facility] Last Admin: 12/10/16 10:30 Dose: 40 mg Heparin Sodium (Porcine) (Heparin -) 5,000 unit SQ BID [facility] Last Admin: 12/10/16 22:46 Dose: Not Given Vancomycin HCl (Vancomycin (Pre-Docked)) 250 mls @ 200 mls/hr IVPB DAILY@1400 [facility] Last Admin: 12/10/16 14:12 Dose: 200 mls/hr Pantoprazole Sodium (Protonix 40mg Ivpb (Pre-Docked)) 100 mls @ 200 mls/hr IVPB DAILY [facility] Last Admin: 12/10/16 14:15 Dose: 200 mls/hr Insulin Aspart (Novolog Vial Sliding Scale -) 1 vial SQ ACHS [facility] PRN Reason: Protocol Last Admin: 12/11/16 06:13 Dose: Not Given Insulin Detemir (Levemir Vial) 10 units SQ BID [facility] Last Admin: 12/10/16 22:46 Dose: Not Given Lactobacillus Acidophilus (Bacid -) 1 tab PO DAILY [facility] Last Admin: 12/10/16 10:25 Dose: 1 tab Levetiracetam (Keppra -) 500 mg PO DAILY [facility] Last Admin: 12/10/16 10:28 Dose: 500 mg Metoclopramide HCl (Reglan -) 5 mg PO TIDAC [facility] Last Admin: 12/11/16 06:14 Dose: Not Given Metronidazole (Flagyl -) 500 mg PO TID [facility] Last Admin: 12/11/16 06:13 Dose: Not Given Mirtazapine (Remeron -) 30 mg PO HS [facility] Last Admin: 12/10/16 22:46 Dose: Not Given Oxycodone HCl (Roxicodone -) 5 mg PO Q4H PRN Sevelamer Carbonate (Renvela -) 800 mg PO TIDCM [facility] Last Admin: 12/11/16 08:23 Dose: 800 mg - Objective Vital Signs: Vital Signs Temperature 97.2 F L 12/10/16 18:00 Pulse Rate 76 12/11/16 10:36 Respiratory Rate 18 12/11/16 10:36 Blood Pressure 114/64 12/11/16 10:36 O2 Sat by Pulse Oximetry (%) 97 12/10/16 21:00 Constitutional: Yes: No Distress Cardiovascular: Yes: Regular Rate and Rhythm, S1, S2 Respiratory: Yes: CTA Bilaterally Gastrointestinal: Yes: Normal Bowel Sounds, Soft. No: Tenderness Extremities: Yes: Other (S/P L BKA + dry ulcer L BKA stump site) Labs: CBC, BMP 12/09/16 11:25 12/10/16 05:50 Assessment/Plan Gastroenteitis - improved L BKA stump ulcer, not clinically infected D/C antibiotics, observe off
[2016-12-11] MEDS: LACTOBACILLUS ACIDOPHILUS 1 EACH TAB (FP) PO SCH (10:59)
[2016-12-11] MEDS: CARVEDILOL 3.125 MG TABLET (FP) PO SCH ×2 (10:59→21:33)
[2016-12-11] MEDS: ASPIRIN COATED 81 MG TABLET.EC PO SCH (10:59)
[2016-12-11] MEDS: levETIRAcetam 500 MG TABLET (FP) PO SCH (11:00)
[2016-12-11] MEDS: FUROSEMIDE 40 MG/4 ML INJECTABLE VIAL IVPUSH SCH (11:00)
[2016-12-11] MEDS: HEPARIN NA (PORCINE) 5,000 UNITS/ML 1ML VIAL SQ SCH ×2 (11:00→21:33)
[2016-12-11] MEDS: CLOPIDOGREL BISULFATE 75 MG TABLET (FP) PO SCH (11:00)
[2016-12-11] MEDS: INSULIN DETEMIR 100 UNITS/ML MDV SQ SCH ×2 (11:01→21:34)
[2016-12-11] MEDS: DIVALPROEX SODIUM 250 MG TABLET E.C. (FP) PO SCH (11:01)
[2016-12-11] MEDS: BACITRACIN 15 GM TUBE TOPICAL OINTMENT TP SCH (11:01)
[2016-12-11] MEDS: PANTOPRAZOLE SODIUM 100 ML IVPB SCH (11:02)
--- NOTE | 2016-12-11 13:13 | PN ---
Progress Note (short form) - Note Progress Note: Renal follow up for RUBY on CKD Pt seen and examined at the bedside refused labs today, continues to refuse on 2nd attempt denies any acute complaints Vital Signs Temperature 97.2 F L 12/10/16 18:00 Pulse Rate 76 12/11/16 10:36 Respiratory Rate 18 12/11/16 10:36 Blood Pressure 114/64 12/11/16 10:36 O2 Sat by Pulse Oximetry (%) 96 12/11/16 09:00 Intake & Output 12/08/16 12/09/16 12/10/16 12/11/16 23:59 23:59 23:59 23:59 Intake Total 1350 530 550 790 Output Total 120 633 233 3565 Balance 1230 130 -140 -210 Weight 168 lb 4 oz 162 lb 3.2 oz 162 lb 4 oz 161 lb 2 oz Gen: NAD, awake and alert CVS: RRR, No M/R Lungs: Dec BS at the lung bases, no rales Abd: soft NT/ND Ext: s/p ampuation, no edema CBC, BMP 12/09/16 11:25 12/10/16 05:50 Current Medications Aspirin (Ecotrin -) 81 mg PO DAILY [facility] Last Admin: 12/11/16 10:59 Dose: 81 mg Bacitracin (Bacitracin -) 1 applic TP DAILY [facility] Last Admin: 12/11/16 11:01 Dose: 1 applic Carvedilol (Coreg -) 3.125 mg PO BID [facility] Last Admin: 12/11/16 10:59 Dose: 3.125 mg Clopidogrel Bisulfate (Plavix -) 75 mg PO DAILY [facility] Last Admin: 12/11/16 11:00 Dose: 75 mg Divalproex Sodium (Depakote -) 250 mg PO DAILY [facility] Last Admin: 12/11/16 11:01 Dose: 250 mg Furosemide (Lasix Injection -) 40 mg IVPUSH DAILY [facility] Last Admin: 12/11/16 11:00 Dose: 40 mg Heparin Sodium (Porcine) (Heparin -) 5,000 unit SQ BID [facility] Last Admin: 12/11/16 11:00 Dose: Not Given Pantoprazole Sodium (Protonix 40mg Ivpb (Pre-Docked)) 100 mls @ 200 mls/hr IVPB DAILY [facility] Last Admin: 12/11/16 11:02 Dose: 200 mls/hr Insulin Aspart (Novolog Vial Sliding Scale -) 1 vial SQ ACHS [facility] PRN Reason: Protocol Last Admin: 12/11/16 06:13 Dose: Not Given Insulin Detemir (Levemir Vial) 10 units SQ BID [facility] Last Admin: 12/11/16 11:01 Dose: Not Given Lactobacillus Acidophilus (Bacid -) 1 tab PO DAILY [facility] Last Admin: 12/11/16 10:59 Dose: 1 tab Levetiracetam (Keppra -) 500 mg PO DAILY [facility] Last Admin: 12/11/16 11:00 Dose: 500 mg Metoclopramide HCl (Reglan -) 5 mg PO TIDAC [facility] Last Admin: 12/11/16 11:00 Dose: 5 mg Metronidazole (Flagyl -) 500 mg PO TID [facility] Last Admin: 12/11/16 06:13 Dose: Not Given Mirtazapine (Remeron -) 30 mg PO HS [facility] Last Admin: 12/10/16 22:46 Dose: Not Given Oxycodone HCl (Roxicodone -) 5 mg PO Q4H PRN Sevelamer Carbonate (Renvela -) 800 mg PO TIDCM [facility] Last Admin: 12/11/16 08:23 Dose: 800 mg A/p 61 year old gentleman with PMhx of RUBY/CKD (lasix Cr prior to this admission was 1.6), DM Type 2, PVD, CAD/CHF presented with diarrhea and wound infection #RUBY on CKD Etiology likely volume depletion/renal hypoperufsion in setting of diarrhea/ NSAID use and possible acute CHF No new labs today as pt refused would change Lasix to PO and continue 40mg once daily pt will need monitoring of renal function and electrolytes as outpatient no CRISTHIAN/ARB at this time advised to avoid NSAIDs oral fluid intake as tolerated low salt diet Daniel Cid DO
--- NOTE | 2016-12-11 14:13 | PN ---
Progress Note, Physician Chief Complaint: Cardiology FU No SOB History of Present Illness: 61 M with D<M, ischemic cardiomyopathy post CABG and stents years ago, PVD post Lt BKA. He is admitted with diarrhea and stump infection. Stopped all medications for an unspecified time prior to this admission. He has dyspnea at rest but reports no cough or edema. There is constant chest pressure which was present at prior visits. There are prior heart failure admissions. - Current Medication List Current Medications: Active Medications Aspirin (Ecotrin -) 81 mg PO DAILY [facility] Last Admin: 12/11/16 10:59 Dose: 81 mg Bacitracin (Bacitracin -) 1 applic TP DAILY [facility] Last Admin: 12/11/16 11:01 Dose: 1 applic Carvedilol (Coreg -) 3.125 mg PO BID [facility] Last Admin: 12/11/16 10:59 Dose: 3.125 mg Clopidogrel Bisulfate (Plavix -) 75 mg PO DAILY [facility] Last Admin: 12/11/16 11:00 Dose: 75 mg Divalproex Sodium (Depakote -) 250 mg PO DAILY [facility] Last Admin: 12/11/16 11:01 Dose: 250 mg Furosemide (Lasix Injection -) 40 mg IVPUSH DAILY [facility] Last Admin: 12/11/16 11:00 Dose: 40 mg Heparin Sodium (Porcine) (Heparin -) 5,000 unit SQ BID [facility] Last Admin: 12/11/16 11:00 Dose: Not Given Pantoprazole Sodium (Protonix 40mg Ivpb (Pre-Docked)) 100 mls @ 200 mls/hr IVPB DAILY [facility] Last Admin: 12/11/16 11:02 Dose: 200 mls/hr Insulin Aspart (Novolog Vial Sliding Scale -) 1 vial SQ ACHS [facility] PRN Reason: Protocol Last Admin: 12/11/16 06:13 Dose: Not Given Insulin Detemir (Levemir Vial) 10 units SQ BID [facility] Last Admin: 12/11/16 11:01 Dose: Not Given Lactobacillus Acidophilus (Bacid -) 1 tab PO DAILY [facility] Last Admin: 12/11/16 10:59 Dose: 1 tab Levetiracetam (Keppra -) 500 mg PO DAILY [facility] Last Admin: 12/11/16 11:00 Dose: 500 mg Metoclopramide HCl (Reglan -) 5 mg PO TIDAC [facility] Last Admin: 12/11/16 11:00 Dose: 5 mg Metronidazole (Flagyl -) 500 mg PO TID [facility] Last Admin: 12/11/16 06:13 Dose: Not Given Mirtazapine (Remeron -) 30 mg PO HS [facility] Last Admin: 12/10/16 22:46 Dose: Not Given Oxycodone HCl (Roxicodone -) 5 mg PO Q4H PRN Sevelamer Carbonate (Renvela -) 800 mg PO TIDCM [facility] Last Admin: 12/11/16 08:23 Dose: 800 mg - Objective Vital Signs: Vital Signs Temperature 97.2 F L 12/10/16 18:00 Pulse Rate 76 12/11/16 10:36 Respiratory Rate 18 12/11/16 10:36 Blood Pressure 114/64 12/11/16 10:36 O2 Sat by Pulse Oximetry (%) 96 12/11/16 09:00 Constitutional: Yes: No Distress, Thin Eyes: Yes: Conjunctiva Clear, EOM Intact HENT: Yes: Atraumatic, Normocephalic Neck: Yes: Supple Cardiovascular: Yes: Regular Rate and Rhythm Respiratory: Yes: Regular, CTA Bilaterally Edema: No Labs: CBC, BMP 12/09/16 11:25 12/10/16 05:50 Problem List - Problems (1) CHF exacerbation Code(s): I50.9 - HEART FAILURE, UNSPECIFIED Qualifiers: Congestive heart failure type: unspecified congestive heart failure type Qualified Code(s): I50.9 - Heart failure, unspecified (2) Chronic kidney disease, stage 3 (moderate) Code(s): N18.3 - CHRONIC KIDNEY DISEASE, STAGE 3 (MODERATE) Assessment/Plan Ischemic CM with chronic HFrEF and CKD 3. Stress test 09/2015 Fixed anterospetal and apical infarct without ischemia and EF 28% Chronic atypical CP Diarrhea with stump infection Poor adherence. Rec: Agree with transition to oral diuretic therapy. If renal function stable, would benefit from addition of ACEI or ARB. No further recs at this time
[2016-12-11] MEDS: MIRTAZAPINE 30 MG TABLET (FP) PO SCH (21:35)
[2016-12-12 00:05] VITALS: PULSE 76
[2016-12-12 02:03] VITALS: BP 100/60
[2016-12-12] MEDS: metroNIDAZOLE 250 MG TABLET PO SCH (06:45)
[2016-12-12] MEDS: INSULIN SLIDING SCALE (NOVOLOG) 1 VIAL SQ SCH (06:46)
[2016-12-12] MEDS: METOCLOPRAMIDE HCL 10 MG TABLET (FP) PO SCH (06:46)
[2016-12-12] MEDS: SEVELAMER CARBONATE 800 MG TAB (FP) PO SCH (07:55)
[2016-12-12] MEDS: FUROSEMIDE 40 MG/4 ML INJECTABLE VIAL IVPUSH SCH (09:55)
[2016-12-12] MEDS: PANTOPRAZOLE SODIUM 100 ML IVPB SCH (09:55)
[2016-12-12] MEDS: LACTOBACILLUS ACIDOPHILUS 1 EACH TAB (FP) PO SCH (09:58)
[2016-12-12] MEDS: CLOPIDOGREL BISULFATE 75 MG TABLET (FP) PO SCH (09:58)
[2016-12-12] MEDS: HEPARIN NA (PORCINE) 5,000 UNITS/ML 1ML VIAL SQ SCH (09:59)
[2016-12-12] MEDS: levETIRAcetam 500 MG TABLET (FP) PO SCH (09:59)
[2016-12-12] MEDS: ASPIRIN COATED 81 MG TABLET.EC PO SCH (09:59)
[2016-12-12] MEDS: BACITRACIN 15 GM TUBE TOPICAL OINTMENT TP SCH (09:59)
[2016-12-12] MEDS: CARVEDILOL 3.125 MG TABLET (FP) PO SCH (09:59)
[2016-12-12] MEDS: DIVALPROEX SODIUM 250 MG TABLET E.C. (FP) PO SCH (09:59)
[2016-12-12] MEDS: INSULIN DETEMIR 100 UNITS/ML MDV SQ SCH (10:00)
--- NOTE | 2016-12-12 11:10 | DS ---
Physical Examination Vital Signs: Vital Signs Temperature 97.2 F L 12/10/16 18:00 Pulse Rate 76 12/12/16 02:01 Respiratory Rate 20 12/12/16 02:01 Blood Pressure 100/60 12/12/16 02:01 O2 Sat by Pulse Oximetry (%) 97 12/11/16 21:00 Constitutional: Yes: Calm Neck: Yes: Trachea Midline Cardiovascular: Yes: Regular Rate and Rhythm, S1, S2 Respiratory: Yes: CTA Bilaterally Gastrointestinal: Yes: Soft Extremities: Yes: Other (left BKA stump covered) Wound/Incision: Yes: Dressing Dry and Intact Neurological: Yes: Alert, Oriented Labs: CBC, BMP 12/09/16 11:25 12/10/16 05:50 Discharge Summary Reason For Visit: DIABETES WOUND LOWER EXTREMITY Current Active Problems CHF exacerbation (Acute) Diarrhea (Acute) Elevated troponin I measurement (Acute) Glaucoma (Acute) Renal insufficiency (Acute) 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 complication (Acute) Weakness (Acute) Wound of lower extremity (Acute) Diabetes (Chronic) Noncompliance with medication regimen (Chronic) Osteomyelitis (Chronic) Hospital Course: - Admission Chief Complaint: DIARRHEA/FEVER/CHILLS/WOUND ULCERS History of Present Illness: PATIENT WITH DM/MULTIPLE SKIN ULCERS/S/P LEFT BKA, NON-COMPLIANT WITH MEDICATIONS AND DIET, HERE WITH FEVER, CHILLS, DIARRRHEA FOR OVER 1 WEEK, DENIES BLOOD IN STOOL. 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: Yes: Peripheral Neuropathy Cardiovascular: Yes: CAD (CABG 2009., stents x5), CHF, HTN Pulmonary: Yes: COPD Gastrointestinal: Yes: Constipation Psych: Yes: Anxiety, Depression Musculoskeletal: Yes: Other Endocrine: Yes: Diabetes Mellitus - Past Surgical History Past Surgical History: Yes: Amputation (left TMT, right 1st and 2nd toes), CABG (2009 at [facility]) seen by GI started of flagyl 500mg tid and diarrhea improved, gastroenteritis resolved seen by ID stup not infected no need for abx ischemic heart disease seen by cardio canot take ACEI or ARB given high bun/cr Condition: Stable - Instructions Diet, Activity, Other Instructions: -Flagyl 500 mg by mouth 3 x day for 14 days -Wound care- clean wound with saline, apply santyl and cover with 4x4 gauze -Follow up with PCP within 2 weeks -Follow up with renal and vascular within 2 weeks. come to wound care clinic at [facility] next week and see Dr [phone] Referrals: Paul Rios MD [Primary Care Provider] - 2 Weeks Disposition: VNS/HOME HEALTH CARE - Home Medications Comprehensive Discharge Medication List: Ambulatory Orders Ascorbate Calcium [Vitamin C] 500 mg PO DAILY 06/22/16 Calcitriol [Calcitriol -] 0.25 mcg PO DAILY 06/22/16 Clopidogrel Bisulfate [Clopidogrel] 75 mg PO DAILY 06/22/16 Levetiracetam [Keppra Xr -] 500 mg PO DAILY 06/22/16 Sevelamer HCl [Renagel] 800 mg PO TID 06/22/16 Atorvastatin Ca [Lipitor] 20 mg PO HS #30 tablet 06/29/16 Acetaminophen [Tylenol .Regular Strength -] 650 mg PO Q4H PRN #0 tablet Furosemide [Lasix -] 20 mg PO DAILY #30 tablet 09/26/16 Insulin (Levemir) [Levemir Vial] 10 units SQ BIDI #10 ml 09/26/16 Insulin Sliding Scale [Novolog Vial Sliding Scale -] 1 vial SQ ACHS units 09/26 Lactobacillus Acidophilus [Bacid -] 1 tab PO DAILY tab 09/26/16 Mirtazapine [Remeron -] 30 mg PO HS #60 tablet 09/26/16 Oxycodone HCl [Roxicodone -] 5 mg PO Q6H PRN #0 tablet MDD 4 09/26/16 Potassium Chloride [K-Dur -] 20 meq PO DAILY #30 tab 09/26/16 Aspirin Coated [Ecotrin -] 81 mg PO DAILY #30 tab 12/11/16 Carvedilol [Coreg -] 3.125 mg PO BID tablet 12/11/16 Clopidogrel Bisulfate [Plavix -] 75 mg PO DAILY tablet 12/11/16 Divalproex [Depakote -] 250 mg PO DAILY tab 12/11/16 Lactobacillus Acidophilus [Bacid -] 1 tab PO DAILY 30 Days 12/11/16 Metronidazole [Flagyl -] 500 mg PO TID #42 tablet 12/11/16 Mirtazapine [Remeron -] 30 mg PO HS tablet 12/11/16 Oxycodone HCl [Roxicodone -] 5 mg PO Q4H PRN #0 tablet MDD 6 12/11/16
== END 2016-12-12 11:19 | disposition home health service (06) | DRG 564 ==
LOC: JER 11:09 → JERBED 15:32 → UNDOADMIN 15:39 → JERBED 15:39 → J6S 16:20 → UNDODISIN 12-09 13:28
PROVIDERS: ADMIT Family Medicine; ATTEND Family Medicine
DX: T87.44 Infection of amputation stump, left lower extremity (principal); I50.23 Acute on chronic systolic (congestive) heart failure; A09 Infectious gastroenteritis and colitis, unspecified; N17.9 Acute kidney failure, unspecified; I13.0 Hypertensive heart and chronic kidney disease with heart failure and stage 1 through stage 4 chronic kidney disease, or unspecified chronic kidney disease; E11.621 Type 2 diabetes mellitus with foot ulcer; L97.529 Non-pressure chronic ulcer of other part of left foot with unspecified severity; Z91.14 Patient's other noncompliance with medication regimen; Z89.512 Acquired absence of left leg below knee; Z79.4 Long term (current) use of insulin; I25.10 Atherosclerotic heart disease of native coronary artery without angina pectoris; Z95.1 Presence of aortocoronary bypass graft; E78.5 Hyperlipidemia, unspecified; E11.42 Type 2 diabetes mellitus with diabetic polyneuropathy; E11.65 Type 2 diabetes mellitus with hyperglycemia; J44.9 Chronic obstructive pulmonary disease, unspecified; E11.22 Type 2 diabetes mellitus with diabetic chronic kidney disease; Y83.8 Other surgical procedures as the cause of abnormal reaction of the patient, or of later complication, without mention of misadventure at the time of the procedure; E11.51 Type 2 diabetes mellitus with diabetic peripheral angiopathy without gangrene; N18.3 Chronic kidney disease, stage 3 (moderate); E63.9 Nutritional deficiency, unspecified; I25.5 Ischemic cardiomyopathy; R07.89 Other chest pain
CPT/HCPCS: 36415; 71010-TC; 76705-TC; 80053; 80074; 81003; 81015; 82009; 82550; 82570; 82728; 83036; 83540; 83550; 83735; 83880; 84100; 84156; 84484; 84550; 85025; 87086; 87177; 87209; 93005; 93010; 99284-25; J1644

== ENCOUNTER 2016-12-17 17:29 | Inpatient (IN) | payer OTHER ==
--- NOTE | 2016-12-17 17:59 | PDOC ---
History of Present Illness - General Chief Complaint: Weakness Stated Complaint: Weakness Time Seen by Provider: 12/17/16 17:49 - History of Present Illness Initial Comments: 12/17/16 19:09 Mr. Maxwell is a 61 yo male with a significant past medical history of recent LLE amputation, diabetes, and chronic diarrhea who presents to the emergency department complaining of weakness, difficulty taking care of himself and generalized weakness. Has had diarrhea daily when he eats and between meals for 2 months. The patient denies chest pain, shortness of breath, headache and dizziness. Denies fever, chills, nausea, vomit, and constipation. Denies dysuria, frequency , urgency and hematuria. Allergies: Bananas Past surgical history: LLE amputation, reported tendor repairs in R arm and foot. Social history:denies alcohol / tobacco PMD - Paul Rios 12/17/16 19:15 12/17/16 19:32 12/17/16 21:38 Past History - Past Medical History Allergies/Adverse Reactions: Allergies Allergy/AdvReac Type Severity Reaction Status Date / Time banana Allergy Verified 12/17/16 21:35 Home Medications: Ambulatory Orders Ascorbate Calcium [Vitamin C] 500 mg PO DAILY 06/22/16 Calcitriol [Calcitriol -] 0.25 mcg PO DAILY 06/22/16 Clopidogrel Bisulfate [Clopidogrel] 75 mg PO DAILY 06/22/16 Levetiracetam [Keppra Xr -] 500 mg PO DAILY 06/22/16 Sevelamer HCl [Renagel] 800 mg PO TID 06/22/16 Atorvastatin Ca [Lipitor] 20 mg PO HS #30 tablet 06/29/16 Acetaminophen [Tylenol .Regular Strength -] 650 mg PO Q4H PRN #0 tablet Furosemide [Lasix -] 20 mg PO DAILY #30 tablet 09/26/16 Insulin (Levemir) [Levemir Vial] 10 units SQ BIDI #10 ml 09/26/16 Insulin Sliding Scale [Novolog Vial Sliding Scale -] 1 vial SQ ACHS units 09/26 Lactobacillus Acidophilus [Bacid -] 1 tab PO DAILY tab 09/26/16 Mirtazapine [Remeron -] 30 mg PO HS #60 tablet 09/26/16 Oxycodone HCl [Roxicodone -] 5 mg PO Q6H PRN #0 tablet MDD 4 09/26/16 Potassium Chloride [K-Dur -] 20 meq PO DAILY #30 tab 09/26/16 Aspirin Coated [Ecotrin -] 81 mg PO DAILY #30 tab 12/11/16 Carvedilol [Coreg -] 3.125 mg PO BID tablet 12/11/16 Clopidogrel Bisulfate [Plavix -] 75 mg PO DAILY tablet 12/11/16 Divalproex [Depakote -] 250 mg PO DAILY tab 12/11/16 Lactobacillus Acidophilus [Bacid -] 1 tab PO DAILY 30 Days 12/11/16 Metronidazole [Flagyl -] 500 mg PO TID #42 tablet 12/11/16 Mirtazapine [Remeron -] 30 mg PO HS tablet 12/11/16 Oxycodone HCl [Roxicodone -] 5 mg PO Q4H PRN #0 tablet MDD 6 12/11/16 Anemia: No Asthma: No Cancer: No Cardiac Disorders: Yes (STENTS X5) CVA: Yes COPD: No CHF: Yes Dementia: No Diabetes: Yes GI Disorders: No Disorders: No HTN: Yes Hypercholesterolemia: Yes Liver Disease: No Suicide Attempt (Hx): No Seizures: No Thyroid Disease: No - Surgical History Abdominal Surgery: No Appendectomy: No Cardiac Surgery: Yes (stents) Cholecystectomy: No Lung Surgery: No Neurologic Surgery: No Orthopedic Surgery: Yes (R. hand, r. foot toes amputated, l. foot 4th & 5th toes amputated) - Immunization History Td Vaccination: Yes TDAP Vaccination: Yes Immunization Up to Date: No - Psycho/Social/Smoking Cessation Hx Anxiety: No Suicidal Ideation: No Smoking Status: No Smoking History: Never smoked Have you smoked in the past 12 months: No Number of Cigarettes Smoked Daily: 0 Information on smoking cessation initiated: No Hx Alcohol Use: No Drug/Substance Use Hx: No Substance Use Type: None Hx Substance Use Treatment: No Review of Systems - Review of Systems Comments:: 12/17/16 19:09 GENERAL/CONSTITUTIONAL: +Endorses weakness and frustration/depression. No fever or chills. HEAD, EYES, EARS, NOSE AND THROAT: No change in vision. No ear pain or discharge. No sore throat. CARDIOVASCULAR: No chest pain or shortness of breath RESPIRATORY: No cough, wheezing, or hemoptysis. GASTROINTESTINAL: +Endorses a 2 month history of loose stool directly following meals. No nausea, vomiting, or constipation. GENITOURINARY: No dysuria, frequency, or change in urination. MUSCULOSKELETAL: No joint or muscle swelling or pain. No neck or back pain. SKIN: No rash NEUROLOGIC: No headache, vertigo, loss of consciousness, or change in strength/ sensation. ENDOCRINE: No increased thirst. No abnormal weight change HEMATOLOGIC/LYMPHATIC: No anemia, easy bleeding, or history of blood clots. ALLERGIC/IMMUNOLOGIC: No hives or skin allergy. 12/17/16 19:40 12/17/16 21:38 *Physical Exam - Vital Signs Last Vital Signs Temp Pulse Resp BP Pulse Ox 97.7 F 98 H 18 132/68 100 12/17/16 17:32 12/17/16 17:32 12/17/16 17:32 12/17/16 17:32 12/17/16 17:32 - Physical Exam Comments: 12/17/16 19:09 GENERAL: Awake, alert, and fully oriented, in no acute distress HEAD: No signs of trauma, normocephalic, atraumatic EYES: L eye non-reactive; per patient this is longstanding. EOMI, sclera anicteric, conjunctiva clear ENT: Auricles normal inspection, hearing grossly normal, nares patent, oropharynx clear without exudates. Moist mucosa NECK: Normal ROM, supple, no lymphadenopathy, JVD, or masses LUNGS: No distress, speaks full sentences, clear to auscultation bilaterally HEART: Regular rate and rhythm, normal S1 and S2, no murmurs, rubs or gallops, peripheral pulses normal and equal bilaterally. ABDOMEN: Soft, nontender, normoactive bowel sounds. No guarding, no rebound. No masses EXTREMITIES: +Amputation of LLE. Appears well healing on exam. Normal inspection , Normal range of motion, no edema. No clubbing or cyanosis. NEUROLOGICAL: Cranial nerves II through XII grossly intact. Normal speech, normal gait, no focal sensorimotor deficits SKIN: Warm, Dry, normal turgor, no rashes or lesions noted. 12/17/16 19:41 12/17/16 21:38 ED Treatment Course - LABORATORY CBC & Chemistry Diagram: 12/17/16 19:39 12/17/16 21:22 Medical Decision Making - Medical Decision Making 12/17/16 19:42 Mr. Maxwell presents w/ cousin and friend with chronic diarrhea. Per family they are very frustrated as he is currently not able to care for himself and they have been unable to find placement for him. He reports being weak and dehydrated. UA, EKG, CMP, CBC, MG ordered to evaluate weakness. Arterial draw done for labs / culture as patient is very difficult stick 12/17/16 21:38 *DC/Admit/Observation/Transfer Diagnosis at time of Disposition: Chronic diarrhea - Referrals Referrals: Paul Rios MD [Primary Care Provider] - - Attestations Physician Attestion: 12/17/16 22:04 I, Dr. Marcelino Pennington, attest that this document has been prepared under my direction and personally reviewed by me in its entirety. I further attest, that it accurately reflects all work, treatment, procedures and medical decision -making performed by me.
[2016-12-17 20:07] LABS: MCH 32.4 pg (25.7-33.7); MCHC 32.9 g/dl (32.0-35.9); MEAN CELL VOLUME 98.7 fl (80-96); MEAN PLT VOLUME 9.7 fl (7.5-11.1); PLATELET COUNT 169 K/MM3 (134-434); RDW 16.6 % (11.9-15.9); WHITE BLOOD COUNT 9.1 K/mm3 (4.0-10.0)
[2016-12-17] MEDS ORDERED: SODIUM CHLORIDE 1,000 ML IV STA (20:36)
[2016-12-17 20:49] LABS: URINE APPEARANCE CLEAR; URINE BILIRUBIN NEGATIVE (NEGATIVE); URINE COLOR YELLOW; URINE GLUCOSE (UA) 3+ (NEGATIVE); URINE KETONE NEGATIVE (NEGATIVE); URINE LEUK ESTERASE NEGATIVE (NEGATIVE); URINE NITRITE NEGATIVE (NEGATIVE); URINE UROBILINOGEN NEGATIVE mg/dL (0.2-1.0)
[2016-12-17 20:51] LABS: URINE BLOOD 2+ (NEGATIVE); URINE PROTEIN 2+ (NEGATIVE)
[2016-12-17 20:54] LABS: CALCIUM OXALATE CRYSTALS RARE /hpf (NONE SEEN); URINE HYALINE CAST 3 /lpf; URINE MUCUS RARE; URINE RBC 23 /hpf (0-3); URINE WBC 2 /hpf (3-5)
[2016-12-17] MEDS ORDERED: diazePAM 5 MG TABLET PO ONE (21:31)
[2016-12-17] MEDS ORDERED: diazePAM 5 MG TABLET ONE (21:38)
--- NOTE | 2016-12-17 21:53 | PDOC ---
Attending Attestation - HPI HPI: 12/17/16 22:19 Dr. Rios was paged at 21:52. Second page was placed at 22:19. <Shahnaz Khan - Last Filed: 12/17/16 22:19> - Resident Resident Name: Marcelino Pennington - ED Attending Attestation I have performed the following: I have examined & evaluated the patient, The case was reviewed & discussed with the resident, I agree w/resident's findings & plan, Exceptions are as noted - HPI HPI: 12/17/16 21:50 Pt states he was discharged 5 days ago and hasn't received the VNS that he had setup before discharge. Pt states he still has diarrhea despite IV hydration here in the hospital - Physicial Exam PE: 12/17/16 21:52 *Physical Exam General Appearance: Yes: Appropriately Dressed. No: Apparent Distress, Intoxicated HEENT: positive: EOMI, ASHA, Normal ENT Inspection, Normal Voice, TMs Normal, Pharynx Normal. negative: Pale Conjunctivae, Photophobia, Scleral Icterus (R), Scleral Icterus (L) Neck: positive: Trachea midline, Normal Thyroid, Supple. negative: Tender, Rigid, Carotid bruit, Stridor, Lymphadenopathy (R), Lymphadenopathy (L), Thyromegaly Respiratory/Chest: positive: Lungs Clear, Normal Breath Sounds. negative: Chest Tender, Respiratory Distress, Accessory Muscle Use, Labored Respiration, RES, Crackles, Rales, Rhonchi, Stridor, Wheezing, Dullness Cardiovascular: positive: Regular Rhythm, Regular Rate, S1, S2. negative: Edema , JVD, Murmur, Bradycardia, Tachycardia Vascular Pulses: Dorsalis-Pedis (R): 2+, Doralis-Pedis (L): 2+ Gastrointestinal/Abdominal: positive: Normal Bowel Sounds, Flat, Soft. negative : Tender, Organomegaly, Pulsatile Mass, Increased Bowel Sounds, Decreased BS, Distended, Guarding, Rebound, Hernia, Hepatomegaly, Spleenomegaly Lymphatic: negative: Adenopathy, Tenderness Musculoskeletal: positive: BKA LLE amputation. negative: CVA Tenderness, Decreased Range of Motion Extremity: positive: Normal Capillary Refill, Normal Inspection, Normal Range of Motion, Pelvis Stable. negative: Tender, Pedal Edema, Swelling, Erythema Integumentary: positive: Normal Color, Dry, Warm. negative: Cyanotic, Erythema , Jaundice, Rash Neurologic: positive: interface engineer II-XII NML intact, Fully Oriented, Alert, Normal Mood/ Affect, Motor Strength 5/5. negative: EOM Palsy, Facial Droop, Sensory Deficit - Medical Decision Making 12/17/16 21:[address] Rios for disposition 12/17/16 22:[address] Rios. Pt will stay in the department until social work sees him in the morning. <Cj Beard - Last Filed: 12/17/16 22:25>
[2016-12-17 21:54] LABS: ALBUMIN 2.6 g/dl (3.4-5.0); ANION GAP 9 (8-16); BILIRUBIN,TOTAL 0.6 mg/dL (0.2-1.0); CALCIUM 8.1 mg/dL (8.5-10.1); CO2 27 mmol/L (21-32); CREATININE 1.5 mg/dL (0.7-1.3); GLUCOSE,RANDOM 232 mg/dL (74-106); MAGNESIUM 1.7 mg/dL (1.8-2.4); SGOT/AST 24 U/L (15-37); SGPT/ALT 25 U/L (12-78); TOT PROT 5.9 g/dl (6.4-8.2)
[2016-12-17 21:55] LABS: ALK PHOS 94 U/L (45-117)
[2016-12-17] MEDS ORDERED: POTASSIUM CHLORIDE TABS 20 MEQ TABLET.ER (FP) PO ONE ×2 (22:16→22:29)
--- NOTE | 2016-12-18 11:15 | EKG ---
Test Reason : Blood Pressure : / mmHG Vent. Rate : 122 BPM Atrial Rate : 122 BPM P-R Int : 000 ms QRS Dur : 112 ms QT Int : 350 ms P-R-T Axes : 051 -32 083 degrees QTc Int : 498 ms POOR DATA QUALITY, INTERPRETATION MAY BE ADVERSELY AFFECTED SINUS TACHYCARDIA WITH FREQUENT PREMATURE VENTRICULAR COMPLEXES LEFT AXIS DEVIATION SEPTAL INFARCT , AGE UNDETERMINED ABNORMAL ECG WHEN COMPARED WITH ECG OF 07-DEC-2016 11:21, VENT. RATE HAS INCREASED BY [address] ELEVATION NOW PRESENT IN ANTERIOR LEADS Confirmed by JONNIE DAVIDSON, HEMALATHA ([id number]) on 12/18/2016 11:14:31 AM Referred By: Confirmed By:HEMALATHA CRISTINA MD
[2016-12-18] MEDS: INSULIN DETEMIR 100 UNITS/ML MDV SQ SCH (11:30)
--- NOTE | 2016-12-18 11:32 | PDOC ---
*Physical Exam - Vital Signs Last Vital Signs Temp Pulse Resp BP Pulse Ox 97.7 F 98 H 18 118/82 95 12/18/16 07:01 12/18/16 07:01 12/18/16 07:01 12/18/16 07:01 12/18/16 07:01 ED Treatment Course - LABORATORY CBC & Chemistry Diagram: 12/19/16 06:30 12/19/16 06:30 - ADDITIONAL ORDERS Additional order review: 12/17/16 19:39 RBC 3.27 L MCV 98.7 H MCHC 32.9 RDW 16.6 H D MPV 9.7 D - Medications Given in the ED: ED Medications Discontinued Medications Generic Name Dose Route Start Last Admin Trade Name Freq PRN Reason Stop Dose Admin Diazepam 5 mg 12/17/16 21:31 12/17/16 21:38 Valium - PO 12/17/16 21:32 5 mg ONCE ONE Administration Sodium Chloride 1,000 mls @ 1,000 mls/hr 12/17/16 20:36 12/17/16 21:03 Normal Saline - IV 12/17/16 21:35 1,000 mls/hr ASDIR STA Administration Potassium Chloride 40 meq 12/17/16 22:16 12/17/16 22:25 K-Dur - PO 12/17/16 22:17 40 meq ONCE ONE Administration Medical Decision Making - Medical Decision Making 12/18/16 11:30 pt was signed out to me from Dr. barker, recent bka, chronic diarrhea presents with weakness, and concern that he was not getting the assistance he needs at home as he has been unable to fu with VNS. Pts labs reviewed noted for mild dehydration, mild hypokalemia/hypomag, it was repleted. dr. wright requests sw consult. edda residential case manager and terry VNS has bene having trouble reach the pt to set up services. we were able to clarify his situation and VNS will discuss with him at home to set up services will hvae pt fu with PMD and GI for further mangaement of his chronic diarrhea 12/18/16 16:09 case d/w the pts cousin. concerned the pts care at home, and that he may be too weak for VNS and to be living alone. will admit pt for treatment of dehyudration an dhypomag/hypokalemia case dw dr. Wright agree with admission for dehydration and metabolic dernagements. Case discussed in detail with admitting physician including history, physical exam and ancillary studies. Admitting physician has assumed care for the patient, will follow all pending diagnostics and will complete the evaluation and treatment. *DC/Admit/Observation/Transfer Diagnosis at time of Disposition: Chronic diarrhea, Dehydration, Hypomagnesemia, Hypokalemia - Discharge Dispostion Disposition: HOME Condition at time of disposition: Improved Admit: Yes - Referrals - Patient Instructions - Post Discharge Activity
[2016-12-18] MEDS ORDERED: MAGNESIUM SULF 50% (8.12 MEQ/2 ML-1 GM VIAL) IVPB ONE (11:39)
[2016-12-18] MEDS ORDERED: MAGNESIUM SULF 50% (8.12 MEQ/2 ML-1 GM VIAL) ONE (11:49)
[2016-12-18] MEDS ORDERED: ACETAMINOPHEN 325 MG TABLET (FP) PO PRN (18:47)
[2016-12-18] MEDS: LEVOFLOXACIN 250 MG IVPB 50 ML IVPB SCH (20:19)
[2016-12-18] MEDS ORDERED: MIRTAZAPINE 15 MG TABLET (FP) ONE (20:55)
[2016-12-18] MEDS: ATORVASTATIN CA 20 MG TABLET (FP) PO SCH (21:03)
[2016-12-18] MEDS: CARVEDILOL 3.125 MG TABLET (FP) PO SCH (21:03)
[2016-12-18] MEDS: HEPARIN NA (PORCINE) 5,000 UNITS/ML 1ML VIAL SQ SCH (21:04)
[2016-12-18] MEDS: MIRTAZAPINE 30 MG TABLET (FP) PO SCH (21:04)
[2016-12-19] MEDS: INSULIN DETEMIR 100 UNITS/ML MDV SQ SCH ×2 (06:42→17:49)
[2016-12-19 08:17] LABS: BASOPHIL 1.2 % (0-2.0); EOSINOPHIL 3.6 % (0-4.5); MCH 32.3 pg (25.7-33.7); MCHC 32.7 g/dl (32.0-35.9); MEAN CELL VOLUME 98.7 fl (80-96); MEAN PLT VOLUME 9.2 fl (7.5-11.1); PLATELET COUNT 131 K/MM3 (134-434); RDW 16.6 % (11.9-15.9); WHITE BLOOD COUNT 5.5 K/mm3 (4.0-10.0)
[2016-12-19 08:27] LABS: ALBUMIN 2.4 g/dl (3.4-5.0); ANION GAP 8 (8-16); CALCIUM 8.3 mg/dL (8.5-10.1); CO2 29 mmol/L (21-32); CREATININE 1.4 mg/dL (0.7-1.3); GLUCOSE,RANDOM 144 mg/dL (74-106); MAGNESIUM 2.1 mg/dL (1.8-2.4); SGOT/AST 16 U/L (15-37); SGPT/ALT 19 U/L (12-78)
[2016-12-19 08:31] LABS: ALK PHOS 79 U/L (45-117); BILIRUBIN,TOTAL 0.9 mg/dL (0.2-1.0); TOT PROT 5.7 g/dl (6.4-8.2); TROPONIN I 0.14 ng/ml (0.00-0.05)
--- NOTE | 2016-12-19 09:25 | PN ---
Progress Note, Physician Chief Complaint: Well known to our service from office and previous multiple hospitalizations: PMH includes: 1. CAD s/p CABG 2. Chronic systolic CHF secondary to ischemic CM, prior OH 3. DM 4. PAD s/p LLE BKA 5. CKD 6. GI bleed. 7. Prior bacteremic episodes from LE wounds, chronic 8. Hyponatremia Now readmitted with bilateral infiltrates and several days of diarrhea and unable to eat. Feels extremely tired, decreased exertional capacity. Denies chest pain or SOB above baseline. No palps. Denies syncope. No edema. History of Present Illness: Diarrhea daily when he eats and between meals for 2 months. The patient denies chest pain, shortness of breath, headache and dizziness. Denies fever, chills, nausea, vomit, and constipation. Denies dysuria, frequency , urgency and hematuria. Blood pressure has been running low. Also noted, TnI borderline elevated. - Current Medication List Current Medications: Active Medications Acetaminophen (Tylenol -) 650 mg PO Q4H PRN PRN Reason: FEVER OR PAIN Ascorbic Acid (Vitamin C -) 500 mg PO DAILY [facility] Aspirin (Ecotrin -) 81 mg PO DAILY [facility] Atorvastatin Calcium (Lipitor -) 20 mg PO HS [facility] Last Admin: 12/18/16 21:03 Dose: 20 mg Calcitriol (Rocaltrol -) 0.25 mcg PO DAILY [facility] Carvedilol (Coreg -) 3.125 mg PO BID [facility] Last Admin: 12/18/16 21:03 Dose: 3.125 mg Clopidogrel Bisulfate (Plavix -) 75 mg PO DAILY [facility] Divalproex Sodium (Depakote -) 250 mg PO DAILY [facility] Furosemide (Lasix -) 20 mg PO DAILY [facility] Heparin Sodium (Porcine) (Heparin -) 5,000 unit SQ BID [facility] Last Admin: 12/18/16 21:04 Dose: 5,000 unit Levofloxacin (Levaquin 250 Mg Premixed Ivpb -) 50 mls @ 50 mls/hr IVPB DAILY [facility] Last Admin: 12/18/16 20:19 Dose: 50 mls/hr Insulin Detemir (Levemir Vial) 10 units SQ BIDI [facility] Last Admin: 12/19/16 06:42 Dose: 10 units Lactobacillus Acidophilus (Bacid -) 1 tab PO DAILY [facility] Levetiracetam (Keppra Xr -) 500 mg PO DAILY [facility] Mirtazapine (Remeron -) 30 mg PO HS [facility] Last Admin: 12/18/16 21:04 Dose: 30 mg Pantoprazole Sodium (Protonix -) 40 mg PO DAILY [facility] Potassium Chloride (K-Dur -) 20 meq PO DAILY [facility] Sevelamer Carbonate (Renvela -) 800 mg PO TIDCM [facility] - Objective Vital Signs: Vital Signs Temperature 98.7 F 12/19/16 06:00 Pulse Rate 90 12/19/16 06:00 Respiratory Rate 18 12/19/16 06:00 Blood Pressure 100/60 12/19/16 06:00 O2 Sat by Pulse Oximetry (%) 95 12/18/16 07:01 Constitutional: Yes: Calm Eyes: Yes: Conjunctiva Clear Neck: Yes: Supple Cardiovascular: Yes: Regular Rate and Rhythm, Other (no JVD.) Respiratory: Yes: CTA Bilaterally (no rales or wheezing. Decreased breath sounds at bases.) Gastrointestinal: Yes: Soft (non-tender.) Edema: No (L. BKA) Neurological: Yes: Alert, Oriented Psychiatric: Yes: WNL Labs: CBC, BMP 12/19/16 06:30 12/19/16 06:30 Laboratory Tests 12/17/16 12/19/16 12/19/16 20:15 06:30 06:30 WBC 5.5 D Hgb 9.5 L D Hct 29.1 L MCV 98.7 H Plt Count 131 L D Sodium 141 Potassium 3.2 L BUN 23 H Creatinine 1.4 H Creat Clearance w eGFR 51.18 Random Glucose 144 H D Calcium 8.3 L Magnesium 2.1 D Total Bilirubin 0.9 D AST 16 D ALT 19 D Alkaline Phosphatase 79 Troponin I 0.14 H D Total Protein 5.7 L Albumin 2.4 L Urine Protein 2+ H Urine Glucose (UA) 3+ H Urine Blood 2+ H Urine Nitrite Negative Urine Bilirubin Negative Urine Urobilinogen Negative Ur Leukocyte Esterase Negative Urine RBC 23 Urine WBC 2 Microbiology 12/17/16 21:22 Blood - Peripheral Venous Blood Culture - Preliminary NO GROWTH OBTAINED AFTER 24 HOURS, INCUBATION TO CONTINUE FOR 4 DAYS. 12/17/16 21:05 Blood - Peripheral Venous Blood Culture - Preliminary NO GROWTH OBTAINED AFTER 24 HOURS, INCUBATION TO CONTINUE FOR 4 DAYS. - ....Imaging Chest X-ray: Image Reviewed EKG: Image Reviewed (Sinus tach @122bpm, Left axis, VPCs. Poor R wave progression c/w old anteroseptal OH.) Problem List - Problems (1) Chronic diarrhea Code(s): K52.9 - NONINFECTIVE GASTROENTERITIS AND COLITIS, UNSPECIFIED (2) Dehydration Code(s): E86.0 - DEHYDRATION (3) Elevated troponin I measurement Code(s): R79.89 - OTHER SPECIFIED ABNORMAL FINDINGS OF BLOOD CHEMISTRY (4) Hypokalemia Code(s): E87.6 - HYPOKALEMIA (5) 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 complication Code(s): E11.29 - TYPE 2 DIABETES MELLITUS W OTH DIABETIC KIDNEY COMPLICATION (6) PAD (peripheral artery disease) Code(s): I73.9 - PERIPHERAL VASCULAR DISEASE, UNSPECIFIED (7) Ischemic cardiomyopathy Code(s): I25.5 - ISCHEMIC CARDIOMYOPATHY (8) Chronic systolic (congestive) heart failure Code(s): I50.22 - CHRONIC SYSTOLIC (CONGESTIVE) HEART FAILURE (9) GI bleed Code(s): K92.2 - GASTROINTESTINAL HEMORRHAGE, UNSPECIFIED Qualifiers: Gastritis type: unspecified gastritis (10) CKD (chronic kidney disease) Code(s): N18.9 - CHRONIC KIDNEY DISEASE, UNSPECIFIED Qualifiers: Chronic kidney disease stage: stage 3 (moderate) Qualified Code(s): N18.3 - Chronic kidney disease, stage 3 (moderate) Assessment/Plan IMP: Diarrhea Dehydration Hypokalemia PNA DM CKD CAD s/p OH, ischemic CM Chronic systolic CHF Elevated cardiac biomarker Hypotension. REC: 1. Investigate etiology diarrhea, check C. Diff 2. Replete K and Mg 3. Hold Lasix in this setting for several days, especially since BP is running low. 4. Continue ASA 5. Borderline elevated TnI (still below 0.5) likely due to chronic systolic CHF in setting of CKD and infection.
[2016-12-19] MEDS ORDERED: PT OWN MED DRAWER 7, Y5N ONE (09:31)
[2016-12-19] MEDS: ASCORBIC ACID 500 MG TABLET (FP) PO SCH (09:37)
[2016-12-19] MEDS: CALCITRIOL 0.25 MCG CAPSULE (FP) PO SCH (09:37)
[2016-12-19] MEDS: PANTOPRAZOLE 40 MG TABLET (FP) PO SCH (09:38)
[2016-12-19] MEDS: CLOPIDOGREL BISULFATE 75 MG TABLET (FP) PO SCH (09:38)
[2016-12-19] MEDS: LACTOBACILLUS ACIDOPHILUS 1 EACH TAB (FP) PO SCH (09:38)
[2016-12-19] MEDS: ASPIRIN COATED 81 MG TABLET.EC PO SCH (09:38)
[2016-12-19] MEDS: SEVELAMER CARBONATE 800 MG TAB (FP) PO SCH ×3 (09:38→17:49)
[2016-12-19] MEDS: POTASSIUM CHLORIDE TABS 20 MEQ TABLET.ER (FP) PO SCH (09:39)
[2016-12-19] MEDS: DIVALPROEX SODIUM 250 MG TABLET E.C. (FP) PO SCH (09:39)
[2016-12-19] MEDS: LEVOFLOXACIN 250 MG IVPB 50 ML IVPB SCH (09:40)
[2016-12-19] MEDS: levETIRAcetam XR 500 MG TAB PO SCH (09:40)
[2016-12-19] MEDS: CARVEDILOL 3.125 MG TABLET (FP) PO SCH ×2 (09:41→22:24)
[2016-12-19] MEDS: HEPARIN NA (PORCINE) 5,000 UNITS/ML 1ML VIAL SQ SCH ×2 (09:41→22:24)
--- NOTE | 2016-12-19 09:57 | HP ---
Admitting History and Physical - Primary Care Physician PCP: Paul Rios - Admission Chief Complaint: diarrhea, hypokalemia, hypomagnesemia History of Present Illness: Mr. Maxwell is a 61 yo male with a significant past medical history of recent Left BKA amputation, diabetes mellitus type 2, and diarrhea for over 2 month who presents to the emergency department complaining of weakness, difficulty taking care of himself and generalized weakness. Patient lives by himself, has only a cousin and a friend that are involved in his health care. He was recently discharged from the hospital for the same problem, although it had resolved after being treated with IV flagyl before discharge. Patient's cousin states that patient was not able to take care of himself and take his medications. Patient has been known to be non compliant at times and refusing medications due to underlying depression. The patient denies chest pain, shortness of breath, headache and dizziness. Denies fever, chills, nausea, vomit, and constipation. Denies dysuria, frequency , urgency and hematuria. Upon workup, patient was found to be hypokalemic and hypomagnesemic. Admission was decided. 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 Cardiovascular: Yes: CAD (CABG 2009., stents x5), CHF, HTN Pulmonary: Yes: COPD Gastrointestinal: Yes: Constipation Renal/: Yes: Renal Inusuff Psych: Yes: Anxiety, Depression Musculoskeletal: Yes: Other Endocrine: Yes: Diabetes Mellitus - Past Surgical History Past Surgical History: Yes: Amputation (left TMT, right 1st and 2nd toes), CABG (2009 at [facility]) - Smoking History Smoking history: Never smoked Have you smoked in the past 12 months: No Aproximately how many cigarettes per day: 0 - Alcohol/Substance Use Hx Alcohol Use: No - Social History ADL: Independent 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 Home Medications - Allergies Allergies/Adverse Reactions: Allergies Allergy/AdvReac Type Severity Reaction Status Date / Time banana Allergy Verified 12/17/16 21:35 - Home Medications Home Medications: Ambulatory Orders Ascorbate Calcium [Vitamin C] 500 mg PO DAILY 06/22/16 Calcitriol [Calcitriol -] 0.25 mcg PO DAILY 06/22/16 Clopidogrel Bisulfate [Clopidogrel] 75 mg PO DAILY 06/22/16 Levetiracetam [Keppra Xr -] 500 mg PO DAILY 06/22/16 Sevelamer HCl [Renagel] 800 mg PO TID 06/22/16 Atorvastatin Ca [Lipitor] 20 mg PO HS #30 tablet 06/29/16 Acetaminophen [Tylenol .Regular Strength -] 650 mg PO Q4H PRN #0 tablet Furosemide [Lasix -] 20 mg PO DAILY #30 tablet 09/26/16 Insulin (Levemir) [Levemir Vial] 10 units SQ BIDI #10 ml 09/26/16 Insulin Sliding Scale [Novolog Vial Sliding Scale -] 1 vial SQ ACHS units 09/26 Lactobacillus Acidophilus [Bacid -] 1 tab PO DAILY tab 09/26/16 Mirtazapine [Remeron -] 30 mg PO HS #60 tablet 09/26/16 Oxycodone HCl [Roxicodone -] 5 mg PO Q6H PRN #0 tablet MDD 4 09/26/16 Potassium Chloride [K-Dur -] 20 meq PO DAILY #30 tab 09/26/16 Aspirin Coated [Ecotrin -] 81 mg PO DAILY #30 tab 12/11/16 Carvedilol [Coreg -] 3.125 mg PO BID tablet 12/11/16 Clopidogrel Bisulfate [Plavix -] 75 mg PO DAILY tablet 12/11/16 Divalproex [Depakote -] 250 mg PO DAILY tab 12/11/16 Lactobacillus Acidophilus [Bacid -] 1 tab PO DAILY 30 Days 12/11/16 Metronidazole [Flagyl -] 500 mg PO TID #42 tablet 12/11/16 Mirtazapine [Remeron -] 30 mg PO HS tablet 12/11/16 Oxycodone HCl [Roxicodone -] 5 mg PO Q4H PRN #0 tablet MDD 6 12/11/16 Family Disease History - Family Disease History Family Disease History: Diabetes: Sister Review of Systems - Review of Systems Constitutional: reports: Loss of Appetite, Malaise, Weakness Eyes: reports: No Symptoms HENT: reports: No Symptoms Neck: reports: No Symptoms Cardiovascular: reports: No Symptoms Respiratory: reports: No Symptoms Gastrointestinal: reports: Diarrhea Genitourinary: reports: No Symptoms Breasts: reports: No Symptoms Reported Musculoskeletal: reports: Muscle Weakness Integumentary: reports: No Symptoms Neurological: reports: Weakness Endocrine: reports: No Symptoms Hematology/Lymphatic: reports: No Symptoms Psychiatric: reports: Depression Physical Examination Vital Signs: Vital Signs Temperature 98.7 F 12/19/16 06:00 Pulse Rate 92 H 12/19/16 09:36 Respiratory Rate 18 12/19/16 09:36 Blood Pressure 101/64 12/19/16 09:36 O2 Sat by Pulse Oximetry (%) 95 12/18/16 07:01 Constitutional: Yes: Well Nourished Cardiovascular: Yes: Regular Rate and Rhythm Respiratory: Yes: Regular Gastrointestinal: Yes: Normal Bowel Sounds Musculoskeletal: Yes: WNL, Other (LEFT BKA) Extremities: Yes: WNL, Amputation (LEFT BKA) Peripheral Pulses WNL: Yes Peripheral Pulses: Left Radial: 2+, Right Radial: 2+, Right Dorsalis Pedis: 2+ Integumentary: Yes: Other (HEALING LEFT LE STUMP WOUND) Wound/Incision: Yes: Clean/Dry Neurological: Yes: Alert, Oriented Psychiatric: Yes: Alert, Oriented Labs: CBC, BMP 12/19/16 06:30 12/19/16 06:30 Imaging - Results Chest X-ray: Report Reviewed Problem List - Problems (1) Dehydration Assessment/Plan: -likely secondary to diarrhea -monitor electrolytes Code(s): E86.0 - DEHYDRATION (2) Hypokalemia Assessment/Plan: -potassium chloride 20 meq daily -KCL IVBPB 10 meq x 3 -today -monitor lytes in AM Code(s): E87.6 - HYPOKALEMIA (3) Hypomagnesemia Assessment/Plan: -normalized after receiving IV magnesium yesterday -magnesium oxide 400 mg po BID for maintenance Code(s): E83.42 - HYPOMAGNESEMIA (4) Anemia Assessment/Plan: -stool OB pending -iron profile pending -monitor labs Code(s): D64.9 - ANEMIA, UNSPECIFIED (5) Diarrhea Assessment/Plan: -stool for culture, ova and parasite, cdiff -to be seen by GI and ID Code(s): R19.7 - DIARRHEA, UNSPECIFIED Assessment/Plan -IV abx -KCL replacement -Mg replacement -stool for ob, culture, O&P and cdiff -GI, ID on the case -Iron profile
[2016-12-19] MEDS ORDERED: CLOPIDOGREL BISULFATE 75 MG TABLET (FP) PO SCH (10:00)
[2016-12-19] MEDS ORDERED: FUROSEMIDE 20 MG TABLET (FP) PO SCH (10:00)
[2016-12-19] MEDS: MAGNESIUM OXIDE 400 MG TABLET (FP) PO SCH ×2 (11:24→22:24)
[2016-12-19] MEDS: KCL 10 MEQ IVPB 100 ML IVPB SCH ×3 (11:24→14:55)
--- NOTE | 2016-12-19 14:10 | PN ---
Progress Note (short form) - Note Progress Note: ID Consult dictated Recurrent diarrhea Dehydration S/P BKA Obtain stool studies Observe off antibiotics
[2016-12-19 14:25] LABS: FERRITIN 327.713 ng/ml (16.4-293.9)
[2016-12-19] MEDS: diazePAM 5 MG TABLET PO PRN (14:54)
--- NOTE | 2016-12-19 16:30 | EKG ---
Test Reason : Blood Pressure : / mmHG Vent. Rate : 091 BPM Atrial Rate : 091 BPM P-R Int : 192 ms QRS Dur : 118 ms QT Int : 434 ms P-R-T Axes : 067 -34 085 degrees QTc Int : 533 ms SINUS RHYTHM WITH OCCASIONAL PREMATURE VENTRICULAR COMPLEXES AND PREMATURE ATRIAL COMPLEXES LEFT AXIS DEVIATION INCOMPLETE LEFT BUNDLE BRANCH BLOCK NONSPECIFIC ST AND T WAVE ABNORMALITY PROLONGED QT ABNORMAL ECG WHEN COMPARED WITH ECG OF 17-DEC-2016 19:52, PREMATURE ATRIAL COMPLEXES ARE NOW PRESENT CRITERIA FOR SEPTAL INFARCT ARE NO LONGER PRESENT ST NO LONGER ELEVATED IN ANTERIOR LEADS Confirmed by BRIE CHAHAL MD ([id number]) on 12/19/2016 4:30:29 PM Referred By: SREEDHAR ABREU Confirmed By:BRIE CHAHAL MD
--- NOTE | 2016-12-19 16:42 | CONS ---
PHYSICAL MEDICINE REHABILITATION CONSULTATION DATE OF CONSULTATION: 12/19/2016 DATE OF ADMISSION: 12/18/2016 REFERRING PHYSICIAN: Paul Rios MD HISTORY OF PRESENT ILLNESS: Patient is a 61-year-old male with past medical history of diabetes, type 2; left jmfxs-sny-vzut amputation; and diarrhea, who was admitted with increasing weakness. Patient had recently been hospitalized with a similar issue and was treated with IV Flagyl and discharged home. He states he does not use a prosthesis and gives very short answers to any questions regarding his past medical and surgical history; so, most of the history is taken from the medical record. Patient is on IV fluids including repletion of magnesium. On admission, the patient did have a low magnesium level of 1.7, low potassium level of 3.4, elevated BUN of 22, creatinine 1.5, decreased total protein of 5.9, albumin 2.6, also borderline potassium of 9.1, hemoglobin low at 10.6. Repeat blood work today showed a decrease in his potassium to 3.2, but also, lower WBCs of 5.5, hemoglobin stable at 9.5, albumin slightly lower at 2.4. His magnesium level improved to 2.1. Stable BUN of 23, creatinine 1.4. Chest x-ray on admission showed a right lower lobe consolidation, not present on prior study. Patient also diagnosed with some dehydration. PAST MEDICAL AND SURGICAL HISTORY: Congestive heart failure, hypertension, coronary artery disease, coronary artery bypass graft, COPD, renal insufficiency, anxiety, depression, diabetes with peripheral neuropathy, left [id number] amputation, right foot multiple toe amputations. SOCIAL HISTORY: Lives alone. Premorbidly limited with his mobility. Apparently not compliant entirely with medication per the medical record. 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 Not a tobacco user and no alcohol. REVIEW OF SYSTEMS: Denies any dizziness, lightheadedness, blurry vision, double vision, chest pain, shortness of breath, fever, chills, bowel or bladder retention. He states some diarrhea. No fever or chills. No joint arthralgias. No diffuse rash. PHYSICAL EXAMINATION: General: Thin, cachectic man seen lying in bed. He is resting quietly, arousable, but again, limited answers to questions. HEENT: He is normocephalic and atraumatic. His extraocular muscles appear intact. He has no obvious facial weakness. Neck: Supple. Extremities: Status post left ebbes-oqb-scsp amputation with fairly good shape, but an Chevy bandage limits evaluation. He is also status post multiple toe amputations, distal right lower extremity, but it is also wrapped with an Chevy bandage. He has no pitting edema. Neuromuscular: Awake, alert, again not entirety cooperative, but cooperative with some simple commands. Cranial nerves 2-12 grossly intact. He has some intrinsic atrophy in the hands but good range of motion, good strength throughout his upper extremities with the mild limitation of intrinsics which are 4/5 on the right and 4+/5 on the left. He has diminished sensation below the knee on the right lower extremity to light touch but fairly good range of motion. Mwnibukrn-rl-xqabic reflexes. Unable to stand or ambulate him at this time. No assistive device and patient not entirely cooperative. OVERALL IMPRESSION: 1. Deficits in mobility and activities of daily living. 2. Deconditioning. 3. Dehydration/jzsrf-fy-zwracna renal insufficiency. 4. Diarrhea. 5. Possible lung consolidation. 6. History of left umgzg-skn-inzh amputation. 7. Right multiple toe amputations. 8. Diabetic peripheral neuropathy. 9. Coronary artery disease status post myocardial infarction. 10. Underlying chronic obstructive pulmonary disease. 11. Cannot rule out mild ulnar neuropathy. PLAN/SUGGESTION: 1. Physical therapy at the bedside. 2. Out of bed to chair. 3. Consider Chevy wrapping left lower extremity for shaping. 4. DVT prophylaxis: Continue subcutaneous heparin. 5. Medical management per Dr. Rios. 6. Follow up blood work. 7. Skin precautions. Monitor right heel and sacrum. 8. May require short-term rehab in a [facility] facility based on his medical condition and response to therapy. Thank you for this referral. HELADIO MOORE M.D. ANURAG/[id number]
--- NOTE | 2016-12-19 19:03 | PN ---
Mental Health Exam - Mental Status Exam Alert and Oriented to: Time, Place, Person Cognitive Function: Good Patient Appearance: Well Groomed Mood: Apathetic, Irritable Affect: Appropriate, Mood Congruent Patient Behavior: Suspicious, Fearful, Resitive to Care, Cooperative Speech Pattern: Clear Voice Loudness: Mildly Loud Thought Process: Intact Thought Disorder: Not Present Hallucinations: None Suicidal Ideation: None Homicidal Ideation: None Insight/Judgement: Good Sleep: Poorly, Difficulty falling asleep Appetite: Poor (diarrahea, afraid to eat, especially if goint to rehab, ) Muscle strength/Tone: Normal Gait/Station: Deferred (stump on left leg.)
--- NOTE | 2016-12-19 19:04 | CON.GI ---
Consult Consult Specialty:: Gastroenterology Referred by:: Dr Rios - History of Present Illness History of Present Illness: 61 y/o male with PMH of DM was admitted with recurrent diarrhea which has improved form recent admission with Flagyl. 'The patient is afraid to eat because it triggers the diarrhea. No fever and no stools obtained form recent admission. 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 Cardio/Vascular: Yes: CAD (CABG 2009., stents x5), CHF, HTN Pulmonary: Yes: COPD Gastrointestinal: Yes: Constipation Renal/: Yes: Renal Inusuff Psych: Yes: Anxiety, Depression Musculoskeletal: Yes: Other Endocrine: Yes: Diabetes Mellitus - Past Surgical History Past Surgical History: Yes: Amputation (left TMT, right 1st and 2nd toes), CABG (2008 at [facility]) - Alcohol/Substance Use Hx Alcohol Use: No - Smoking History Smoking history: Never smoked Have you smoked in the past 12 months: No Aproximately how many cigarettes per day: 0 - Social History Usual Living Arrangement: [facility] ADL: Independent 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 Home Medications - Allergies Allergies/Adverse Reactions: Allergies Allergy/AdvReac Type Severity Reaction Status Date / Time banana Allergy Verified 12/17/16 21:35 - Home Medications Home Medications: Ambulatory Orders Ascorbate Calcium [Vitamin C] 500 mg PO DAILY 06/22/16 Calcitriol [Calcitriol -] 0.25 mcg PO DAILY 06/22/16 Clopidogrel Bisulfate [Clopidogrel] 75 mg PO DAILY 06/22/16 Levetiracetam [Keppra Xr -] 500 mg PO DAILY 06/22/16 Sevelamer HCl [Renagel] 800 mg PO TID 06/22/16 Atorvastatin Ca [Lipitor] 20 mg PO HS #30 tablet 06/29/16 Acetaminophen [Tylenol .Regular Strength -] 650 mg PO Q4H PRN #0 tablet Furosemide [Lasix -] 20 mg PO DAILY #30 tablet 09/26/16 Insulin (Levemir) [Levemir Vial] 10 units SQ BIDI #10 ml 09/26/16 Insulin Sliding Scale [Novolog Vial Sliding Scale -] 1 vial SQ ACHS units 09/26 Lactobacillus Acidophilus [Bacid -] 1 tab PO DAILY tab 09/26/16 Mirtazapine [Remeron -] 30 mg PO HS #60 tablet 09/26/16 Oxycodone HCl [Roxicodone -] 5 mg PO Q6H PRN #0 tablet MDD 4 09/26/16 Potassium Chloride [K-Dur -] 20 meq PO DAILY #30 tab 09/26/16 Aspirin Coated [Ecotrin -] 81 mg PO DAILY #30 tab 12/11/16 Carvedilol [Coreg -] 3.125 mg PO BID tablet 12/11/16 Clopidogrel Bisulfate [Plavix -] 75 mg PO DAILY tablet 12/11/16 Divalproex [Depakote -] 250 mg PO DAILY tab 12/11/16 Lactobacillus Acidophilus [Bacid -] 1 tab PO DAILY 30 Days 12/11/16 Metronidazole [Flagyl -] 500 mg PO TID #42 tablet 12/11/16 Mirtazapine [Remeron -] 30 mg PO HS tablet 12/11/16 Oxycodone HCl [Roxicodone -] 5 mg PO Q4H PRN #0 tablet MDD 6 12/11/16 Family Disease History - Family Disease History Family Disease History: Diabetes: Sister Physical Exam-GI Vital Signs: Vital Signs Temperature 98.7 F 12/19/16 06:00 Pulse Rate 76 12/19/16 17:33 Respiratory Rate 20 12/19/16 17:33 Blood Pressure 105/75 12/19/16 17:33 O2 Sat by Pulse Oximetry (%) 95 12/19/16 09:00 Constitutional: Yes: Well Nourished Eyes: Yes: Conjunctiva Clear HENT: Yes: Atraumatic Neck: Yes: Supple Cardiovascular: Yes: Regular Rate and Rhythm Respiratory: Yes: CTA Bilaterally ...Palpate: Yes: Soft. No: Firm/Rigid, Guarding, Hepatomegaly, Mass, Pulsatile Mass, Splenomegaly, Tenderness, Tenderness, Epigastium Labs: CBC, BMP 12/19/16 06:30 12/19/16 06:30 Problem List - Problems (1) Chronic diarrhea Assessment/Plan: most likely finctional as it occurs aafter food intake R> stool WBC, stool guaiac low fiver, lactose free Code(s): K52.9 - NONINFECTIVE GASTROENTERITIS AND COLITIS, UNSPECIFIED (2) Anemia Assessment/Plan: most likely secondary to hematuria 1)stool guaiac 2)UROLOGY CONSULT 3) gi W/U ONCE MEDICALLY CLEARED Code(s): D64.9 - ANEMIA, UNSPECIFIED
--- NOTE | 2016-12-19 19:12 | PN ---
Progress Note, Physician Chief Complaint: "i am not getting help", "doctors are a joke, they dont speak plain yemeni"."i need help but they label me with a bad attitude". Perocet is a sedative helps me sleep. "i have loss of thing i used to do" - Current Medication List Current Medications: Active Medications Acetaminophen (Tylenol -) 650 mg PO Q4H PRN PRN Reason: FEVER OR PAIN Ascorbic Acid (Vitamin C -) 500 mg PO DAILY [facility] Last Admin: 12/19/16 09:37 Dose: 500 mg Aspirin (Ecotrin -) 81 mg PO DAILY [facility] Last Admin: 12/19/16 09:38 Dose: 81 mg Atorvastatin Calcium (Lipitor -) 20 mg PO HS [facility] Last Admin: 12/18/16 21:03 Dose: 20 mg Calcitriol (Rocaltrol -) 0.25 mcg PO DAILY [facility] Last Admin: 12/19/16 09:37 Dose: 0.25 mcg Carvedilol (Coreg -) 3.125 mg PO BID [facility] Last Admin: 12/19/16 09:41 Dose: 3.125 mg Clopidogrel Bisulfate (Plavix -) 75 mg PO DAILY [facility] Last Admin: 12/19/16 09:38 Dose: 75 mg Diazepam (Valium -) 5 mg PO BID PRN PRN Reason: ANXIETY Last Admin: 12/19/16 14:54 Dose: 5 mg Divalproex Sodium (Depakote -) 250 mg PO DAILY [facility] Last Admin: 12/19/16 09:39 Dose: 250 mg Heparin Sodium (Porcine) (Heparin -) 5,000 unit SQ BID [facility] Last Admin: 12/19/16 09:41 Dose: Not Given Levofloxacin (Levaquin 250 Mg Premixed Ivpb -) 50 mls @ 50 mls/hr IVPB DAILY [facility] Last Admin: 12/19/16 09:40 Dose: 50 mls/hr Insulin Detemir (Levemir Vial) 10 units SQ BIDI [facility] Last Admin: 12/19/16 17:49 Dose: Not Given Lactobacillus Acidophilus (Bacid -) 1 tab PO DAILY [facility] Last Admin: 12/19/16 09:38 Dose: 1 tab Levetiracetam (Keppra Xr -) 500 mg PO DAILY [facility] Last Admin: 12/19/16 09:40 Dose: 500 mg Magnesium Oxide (Mag-Ox -) 400 mg PO BID [facility] Last Admin: 12/19/16 11:24 Dose: 400 mg Mirtazapine (Remeron -) 30 mg PO HS [facility] Last Admin: 12/18/16 21:04 Dose: 30 mg Pantoprazole Sodium (Protonix -) 40 mg PO DAILY [facility] Last Admin: 12/19/16 09:38 Dose: 40 mg Potassium Chloride (K-Dur -) 20 meq PO DAILY [facility] Last Admin: 12/19/16 09:39 Dose: 20 meq Sevelamer Carbonate (Renvela -) 800 mg PO TIDCM [facility] Last Admin: 12/19/16 17:49 Dose: 800 mg - Objective Vital Signs: Vital Signs Temperature 98.7 F 12/19/16 06:00 Pulse Rate 76 12/19/16 17:33 Respiratory Rate 20 12/19/16 17:33 Blood Pressure 105/75 12/19/16 17:33 O2 Sat by Pulse Oximetry (%) 95 12/19/16 09:00 Constitutional: Yes: Ashen, Cachectic, Poor Hygeine (not groomed.) Respiratory: Yes: Accessory Muscle Use Psychiatric: Yes: Other (adjustment disorder related to [facility]) Labs: CBC, BMP 12/19/16 06:30 12/19/16 06:30 Assessment/Plan patient have depressed mood and irritable affect. Currently on depakote 250mg a day. Remeron 30 mg at night, unwilling to change regime. Stated that his medical Bills are3 already too much. Feels that he is in "short end of a rope", but denies suicidal ideation, no homicidal ideation. Decreased appetite due to severe diarrhoea, turns down going to PT as he feel he may embarrass himself. Perservating in speech. Stubborn in nature currently. "i feel that i am an energizer bunny", will not give up. Plan maintain current meds, Refused further intrevention. Thanks for consult.
[2016-12-19] MEDS ORDERED: MIRTAZAPINE 15 MG TABLET (FP) ONE (22:17)
[2016-12-19] MEDS: ATORVASTATIN CA 20 MG TABLET (FP) PO SCH (22:24)
[2016-12-19] MEDS: MIRTAZAPINE 30 MG TABLET (FP) PO SCH (22:24)
[2016-12-20] MEDS: diazePAM 5 MG TABLET PO PRN (04:19)
[2016-12-20] MEDS: INSULIN DETEMIR 100 UNITS/ML MDV SQ SCH (06:25)
[2016-12-20 06:34] VITALS: TEMP 97.6
[2016-12-20 08:06] LABS: MCH 32.1 pg (25.7-33.7); MCHC 32.3 g/dl (32.0-35.9); MEAN CELL VOLUME 99.4 fl (80-96); MEAN PLT VOLUME 8.7 fl (7.5-11.1); PLATELET COUNT 142 K/MM3 (134-434); RDW 16.7 % (11.9-15.9); WHITE BLOOD COUNT 4.8 K/mm3 (4.0-10.0)
[2016-12-20 08:07] LABS: SERUM IRON 36 ug/dL (38-169); TOTAL IRON BINDING CAPACITY 175 ug/dL (250-450); UIBC 139 ug/dL (111-343)
--- NOTE | 2016-12-20 08:28 | DS ---
Physical Examination Vital Signs: Vital Signs Temperature 97.6 F 12/20/16 06:00 Pulse Rate 84 12/20/16 06:00 Respiratory Rate 20 12/20/16 06:00 Blood Pressure 107/75 12/20/16 06:00 O2 Sat by Pulse Oximetry (%) 95 12/19/16 09:00 Findings/Remarks: NO BM YET POOR ORAL INTAKE--D/W PT- Cardiovascular: Yes: Regular Rate and Rhythm Respiratory: Yes: Regular, CTA Bilaterally Gastrointestinal: Yes: Normal Bowel Sounds, Soft Labs: CBC, BMP 12/20/16 06:45 Discharge Summary Reason For Visit: DEHYDRATION,HYPOKALEMIA,HYPOMAGNESEMIA Current Active Problems CHF exacerbation (Acute) CKD (chronic kidney disease) (Acute) Chronic diarrhea (Acute) Chronic systolic (congestive) heart failure (Acute) Dehydration (Acute) Elevated troponin I measurement (Acute) GI bleed (Acute) Glaucoma (Acute) Hypokalemia (Acute) Hypomagnesemia (Acute) Ischemic cardiomyopathy (Acute) 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 complication (Acute) Osteomyelitis (Chronic) Hospital Course: - Mr. Maxwell is a 61 yo male with a significant past medical history of recent Left BKA amputation, diabetes mellitus type 2, and diarrhea for over 2 month who presents to the emergency department complaining of weakness, difficulty taking care of himself and generalized weakness. Patient lives by himself, has only a cousin and a friend that are involved in his health care. He was recently discharged from the hospital for the same problem, although it had resolved after being treated with IV flagyl before discharge. Patient's cousin states that patient was not able to take care of himself and take his medications. Patient has been known to be non compliant at times and refusing medications due to underlying depression. The patient denies chest pain, shortness of breath, headache and dizziness. Denies fever, chills, nausea, vomit, and constipation. Denies dysuria, frequency , urgency and hematuria. Upon workup, patient was found to be hypokalemic and hypomagnesemic. Admission was decided. 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 Neuropathy Cardiovascular: Yes: CAD (CABG 2009., stents x5), CHF, HTN Pulmonary: Yes: COPD Gastrointestinal: Yes: Constipation Renal/: Yes: Renal Inusuff Psych: Yes: Anxiety, Depression Musculoskeletal: Yes: Other Endocrine: Yes: Diabetes Mellitus - Past Surgical History Past Surgical History: Yes: Amputation (left TMT, right 1st and 2nd toes), CABG (2009 at [facility]) Problems (1) Dehydration Assessment/Plan: -likely secondary to diarrhea -monitor electrolytes -POOR ORAL INTAKE Code(s): E86.0 - DEHYDRATION (2) Hypokalemia Assessment/Plan: -potassium chloride 20 meq daily -KCL IVBPB 10 meq x 3 --NL TODAY -monitor lytes closely Code(s): E87.6 - HYPOKALEMIA (3) Hypomagnesemia Assessment/Plan: -normalized after receiving IV magnesium yesterday -magnesium oxide 400 mg po BID for maintenance Code(s): E83.42 - HYPOMAGNESEMIA (4) Anemia Assessment/Plan: -stool OB pending -iron profile pending -monitor labs Code(s): D64.9 - ANEMIA, UNSPECIFIED (5) Diarrhea Assessment/Plan: -stool for culture, ova and parasite, cdiff -to be seen by GI and ID Code(s): R19.7 - DIARRHEA, UNSPECIFIED (6) Hematuria Assessment/Plan: -MONITOR -W/U DISCUSSED WITH PT--HAD CT--REFUSES FURTHER URO INTERVENTION Assessment/Plan -OFF IV abx -KCL replacement -Mg replacement -stool for ob, culture, O&P and cdiff -GI, ID on the case -Iron profile Condition: Improved - Instructions Diet, Activity, Other Instructions: Return to the emergency department immediately with ANY new, persistent or worsening symptoms including worsening abdominal pain, fevers, inability to tolerate oral intake, chest pain, shortness of breath or any other concerns. Stay well hydrated. [facility] will contact you or your cousin to arrange services. You MUST call and follow up with your cognos bi administrator and primary care doctor for further evaluation. Your emergency department visit is not complete without a followup with your doctor for reevaluation. Please make sure your doctor reviews the results of your emergency evaluation. Referrals: Paul Rios MD [Primary Care Provider] - Disposition: [facility] - Home Medications Comprehensive Discharge Medication List: Ambulatory Orders Ascorbate Calcium [Vitamin C] 500 mg PO DAILY 06/22/16 Calcitriol [Calcitriol -] 0.25 mcg PO DAILY 06/22/16 Levetiracetam [Keppra Xr -] 500 mg PO DAILY 06/22/16 Sevelamer HCl [Renagel] 800 mg PO TID 06/22/16 Atorvastatin Ca [Lipitor] 20 mg PO HS #30 tablet 06/29/16 Acetaminophen [Tylenol .Regular Strength -] 650 mg PO Q4H PRN #0 tablet Furosemide [Lasix -] 20 mg PO DAILY #30 tablet 09/26/16 Insulin (Levemir) [Levemir Vial] 10 units SQ BIDI #10 ml 09/26/16 Insulin Sliding Scale [Novolog Vial Sliding Scale -] 1 vial SQ ACHS units 09/26 Potassium Chloride [K-Dur -] 20 meq PO DAILY #30 tab 09/26/16 Aspirin Coated [Ecotrin -] 81 mg PO DAILY #30 tab 12/11/16 Carvedilol [Coreg -] 3.125 mg PO BID tablet 12/11/16 Clopidogrel Bisulfate [Plavix -] 75 mg PO DAILY tablet 12/11/16 Divalproex [Depakote -] 250 mg PO DAILY tab 12/11/16 Lactobacillus Acidophilus [Bacid -] 1 tab PO DAILY 30 Days 12/11/16 Mirtazapine [Remeron -] 30 mg PO HS tablet 12/11/16 Oxycodone HCl [Roxicodone -] 5 mg PO Q4H PRN #0 tablet MDD 6 12/11/16 Diazepam [Valium] 5 mg PO BID PRN #0 tablet MDD 2 12/20/16 Pantoprazole Sodium [Protonix -] 40 mg PO DAILY tab 12/20/16
[2016-12-20 08:43] LABS: ALBUMIN 2.5 g/dl (3.4-5.0); ALK PHOS 76 U/L (45-117); ANION GAP 6 (8-16); BILIRUBIN,TOTAL 0.7 mg/dL (0.2-1.0); CALCIUM 8.7 mg/dL (8.5-10.1); CO2 28 mmol/L (21-32); CREATININE 1.3 mg/dL (0.7-1.3); GLUCOSE,RANDOM 88 mg/dL (74-106); SGOT/AST 18 U/L (15-37); SGPT/ALT 18 U/L (12-78); TOT PROT 5.9 g/dl (6.4-8.2)
[2016-12-20] MEDS: SEVELAMER CARBONATE 800 MG TAB (FP) PO SCH ×2 (09:05→13:19)
--- NOTE | 2016-12-20 09:18 | PN ---
Progress Note, Physician Chief Complaint: sleeping, no acute distress Has not yet had BM to collect for C. Diff History of Present Illness: denies chest pain - Current Medication List Current Medications: Active Medications Acetaminophen (Tylenol -) 650 mg PO Q4H PRN PRN Reason: FEVER OR PAIN Ascorbic Acid (Vitamin C -) 500 mg PO DAILY [facility] Last Admin: 12/19/16 09:37 Dose: 500 mg Aspirin (Ecotrin -) 81 mg PO DAILY [facility] Last Admin: 12/19/16 09:38 Dose: 81 mg Atorvastatin Calcium (Lipitor -) 20 mg PO HS [facility] Last Admin: 12/19/16 22:24 Dose: 20 mg Calcitriol (Rocaltrol -) 0.25 mcg PO DAILY [facility] Last Admin: 12/19/16 09:37 Dose: 0.25 mcg Carvedilol (Coreg -) 3.125 mg PO BID [facility] Last Admin: 12/19/16 22:24 Dose: 3.125 mg Clopidogrel Bisulfate (Plavix -) 75 mg PO DAILY [facility] Last Admin: 12/19/16 09:38 Dose: 75 mg Diazepam (Valium -) 5 mg PO BID PRN PRN Reason: ANXIETY Last Admin: 12/20/16 04:19 Dose: 5 mg Divalproex Sodium (Depakote -) 250 mg PO DAILY [facility] Last Admin: 12/19/16 09:39 Dose: 250 mg Heparin Sodium (Porcine) (Heparin -) 5,000 unit SQ BID [facility] Last Admin: 12/19/16 22:24 Dose: 5,000 unit Insulin Detemir (Levemir Vial) 10 units SQ BIDI [facility] Last Admin: 12/20/16 06:25 Dose: Not Given Lactobacillus Acidophilus (Bacid -) 1 tab PO DAILY [facility] Last Admin: 12/19/16 09:38 Dose: 1 tab Levetiracetam (Keppra Xr -) 500 mg PO DAILY [facility] Last Admin: 12/19/16 09:40 Dose: 500 mg Magnesium Oxide (Mag-Ox -) 400 mg PO BID [facility] Last Admin: 12/19/16 22:24 Dose: 400 mg Mirtazapine (Remeron -) 30 mg PO HS [facility] Last Admin: 12/19/16 22:24 Dose: 30 mg Pantoprazole Sodium (Protonix -) 40 mg PO DAILY [facility] Last Admin: 12/19/16 09:38 Dose: 40 mg Potassium Chloride (K-Dur -) 20 meq PO DAILY [facility] Last Admin: 12/19/16 09:39 Dose: 20 meq Sevelamer Carbonate (Renvela -) 800 mg PO TIDCM [facility] Last Admin: 12/20/16 09:05 Dose: 800 mg - Objective Vital Signs: Vital Signs Temperature 97.6 F 12/20/16 06:00 Pulse Rate 84 12/20/16 06:00 Respiratory Rate 20 12/20/16 06:00 Blood Pressure 107/75 12/20/16 06:00 O2 Sat by Pulse Oximetry (%) 95 12/19/16 09:00 Constitutional: Yes: Calm Eyes: Yes: Conjunctiva Clear, Other (dry oropharynx) Cardiovascular: Yes: Regular Rate and Rhythm Respiratory: Yes: CTA Bilaterally Gastrointestinal: Yes: Soft Edema: No Neurological: Yes: Alert Labs: CBC, BMP 12/20/16 06:45 12/20/16 06:45 Microbiology 12/17/16 21:22 Blood - Peripheral Venous Blood Culture - Preliminary NO GROWTH OBTAINED AFTER 48 HOURS, INCUBATION TO CONTINUE FOR 3 DAYS. 12/17/16 21:05 Blood - Peripheral Venous Blood Culture - Preliminary NO GROWTH OBTAINED AFTER 48 HOURS, INCUBATION TO CONTINUE FOR 3 DAYS. Laboratory Tests 12/20/16 12/20/16 06:45 06:45 WBC 4.8 Hgb 10.4 L Plt Count 142 Sodium 138 Potassium 3.7 BUN 22 H Creatinine 1.3 Creatine Kinase 20 L Troponin I 0.20 H D Problem List - Problems (1) Chronic diarrhea Code(s): K52.9 - NONINFECTIVE GASTROENTERITIS AND COLITIS, UNSPECIFIED (2) Dehydration Code(s): E86.0 - DEHYDRATION (3) Elevated troponin I measurement Code(s): R79.89 - OTHER SPECIFIED ABNORMAL FINDINGS OF BLOOD CHEMISTRY (4) Hypokalemia Code(s): E87.6 - HYPOKALEMIA (5) 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 complication Code(s): E11.29 - TYPE 2 DIABETES MELLITUS W OTH DIABETIC KIDNEY COMPLICATION (6) PAD (peripheral artery disease) Code(s): I73.9 - PERIPHERAL VASCULAR DISEASE, UNSPECIFIED (7) Ischemic cardiomyopathy Code(s): I25.5 - ISCHEMIC CARDIOMYOPATHY (8) Chronic systolic (congestive) heart failure Code(s): I50.22 - CHRONIC SYSTOLIC (CONGESTIVE) HEART FAILURE (9) GI bleed Code(s): K92.2 - GASTROINTESTINAL HEMORRHAGE, UNSPECIFIED Qualifiers: Gastritis type: unspecified gastritis (10) CKD (chronic kidney disease) Code(s): N18.9 - CHRONIC KIDNEY DISEASE, UNSPECIFIED Qualifiers: Chronic kidney disease stage: stage 3 (moderate) Qualified Code(s): N18.3 - Chronic kidney disease, stage 3 (moderate) Assessment/Plan IMP: Diarrhea Dehydration Hypokalemia PNA DM CKD CAD s/p NM, ischemic CM Chronic systolic CHF Elevated cardiac biomarker Hypotension. REC: 1. Investigate etiology diarrhea, check C. Diff when patient has next BM 2. Replete K and Mg 3. Hold Lasix in this setting for several days, especially since BP is running low and until diarrhea resolves. 4. Continue ASA 5. Borderline elevated TnI (still below 0.5) likely due to chronic systolic CHF in setting of CKD and infection. Asymptomatic with no chest pain or increased dyspnea.
[2016-12-20] MEDS: ASPIRIN COATED 81 MG TABLET.EC PO SCH (10:37)
[2016-12-20] MEDS: LACTOBACILLUS ACIDOPHILUS 1 EACH TAB (FP) PO SCH (10:37)
[2016-12-20] MEDS: CARVEDILOL 3.125 MG TABLET (FP) PO SCH (10:37)
[2016-12-20] MEDS: HEPARIN NA (PORCINE) 5,000 UNITS/ML 1ML VIAL SQ SCH (10:38)
[2016-12-20] MEDS: MAGNESIUM OXIDE 400 MG TABLET (FP) PO SCH (10:38)
[2016-12-20] MEDS: POTASSIUM CHLORIDE TABS 20 MEQ TABLET.ER (FP) PO SCH (10:38)
[2016-12-20] MEDS: CLOPIDOGREL BISULFATE 75 MG TABLET (FP) PO SCH (10:39)
[2016-12-20] MEDS: CALCITRIOL 0.25 MCG CAPSULE (FP) PO SCH (10:39)
[2016-12-20] MEDS: PANTOPRAZOLE 40 MG TABLET (FP) PO SCH (10:39)
[2016-12-20] MEDS: ASCORBIC ACID 500 MG TABLET (FP) PO SCH (10:39)
[2016-12-20] MEDS: levETIRAcetam XR 500 MG TAB PO SCH (10:42)
[2016-12-20] MEDS: DIVALPROEX SODIUM 250 MG TABLET E.C. (FP) PO SCH (10:42)
[2016-12-20] MEDS ORDERED: PT OWN MED DRAWER 7, Y5N ONE ×2 (10:50→11:59)
[2016-12-20 15:24] VITALS: BP 102/66; PULSE 90
--- NOTE | 2016-12-20 15:37 | CONS ---
DATE OF CONSULTATION: DATE OF DICTATION: 12/20/2016 INFECTIOUS DISEASE CONSULTATION HISTORY OF PRESENT ILLNESS: The patient is a 61-year-old diabetic male evaluated for diarrhea. He has had multiple recent hospital admissions for diabetic infections of the lower extremities. He is now admitted with profound weakness and diarrhea. According to the notes, family was unable to care for him at home. He denies any abdominal pain, rectal bleeding. No reported fever or chills. He denies any recent travel. He has been on antibiotics recently for diabetic foot infections. PAST MEDICAL HISTORY: Positive for diabetes mellitus, history of coronary artery disease, bypass surgery, history of osteomyelitis of the lower extremity. He is status post left [id number] amputation. ALLERGIES: No known drug allergies. MEDICATION: Include Tylenol, heparin, Depakote, Keppra, Remeron, Bacid, valium, Coreg, Lipitor, Ecotrin, Plavix, Protonix. SOCIAL HISTORY: He lives at home. No active tobacco or alcohol use. SYSTEMS REVIEW: Neurologic: No loss of consciousness, seizure activity, or focal weakness. Cardiac: Negative chest pain or palpitations. Respiratory: Negative cough or sputum production. Gastrointestinal: As per HPI. Genitourinary: Negative for urinary tract infection. LABORATORY DATA: White count 5.5, BUN 22, creatinine 1.3, urinalysis 2 white cells. PHYSICAL EXAMINATION: General: He is chronically ill appearing, supine in bed, weak appearing. Vital signs: Temperature 98.7, blood pressure 115/57, pulse 98 regular, respirations 18 per minute. HEENT: Sclerae anicteric. Cardiovascular: Heart sounds S1, S2. Respiratory: Lungs clear. Abdomen: Soft. Nontender. Left BKA stump wound and right foot wrapped. He would not allow the dressings to be removed for examination. IMPRESSION: 1. Diarrhea, rule out gastroenteritis. 2. Dehydration. 3. Diabetes mellitus. Obtain stool studies for culture and sensitivity, ova and parasites, and C. difficile. Observe off antibiotic therapy. Supportive measures. Thank you for the kind referral. LANA FOX M.D. [id number]
== END 2016-12-20 17:33 | DRG 392 ==
LOC: JER 17:29 → JERBED 12-18 16:04 → J8W 12-18 17:30
PROVIDERS: ADMIT Family Medicine; ATTEND Family Medicine
DX: K52.9 Noninfective gastroenteritis and colitis, unspecified (principal); I13.0 Hypertensive heart and chronic kidney disease with heart failure and stage 1 through stage 4 chronic kidney disease, or unspecified chronic kidney disease; I50.22 Chronic systolic (congestive) heart failure; E87.1 Hypo-osmolality and hyponatremia; E87.6 Hypokalemia; E78.00 Pure hypercholesterolemia, unspecified; E86.0 Dehydration; J44.9 Chronic obstructive pulmonary disease, unspecified; E83.42 Hypomagnesemia; I25.10 Atherosclerotic heart disease of native coronary artery without angina pectoris; I25.5 Ischemic cardiomyopathy; F41.8 Other specified anxiety disorders; K59.09 Other constipation; I25.2 Old myocardial infarction; E11.42 Type 2 diabetes mellitus with diabetic polyneuropathy; D64.9 Anemia, unspecified; R31.9 Hematuria, unspecified; I73.89 Other specified peripheral vascular diseases; H40.89 Other specified glaucoma; E11.22 Type 2 diabetes mellitus with diabetic chronic kidney disease; N18.3 Chronic kidney disease, stage 3 (moderate); Z89.422 Acquired absence of other left toe(s); Z89.421 Acquired absence of other right toe(s); Z95.1 Presence of aortocoronary bypass graft; Z89.9 Acquired absence of limb, unspecified; Z95.5 Presence of coronary angioplasty implant and graft; Z91.14 Patient's other noncompliance with medication regimen
CPT/HCPCS: 36415; 71010-TC; 80053; 81003; 81015; 82550; 82728; 83540; 83550; 83735; 84484; 85025; 85027; 87040; 87086; 93005; 93010; 97162-GP; 99285-25; J1644

== ENCOUNTER 2017-01-01 18:16 | Inpatient (IN) | payer OTHER ==
[2017-01-01] MEDS ORDERED: SODIUM CHLORIDE 0.9% 1000 ML INFUS.BAG IV PRN (19:37)
--- NOTE | 2017-01-01 19:51 | PDOC ---
History of Present Illness - General Chief Complaint: Loss of Appetite Stated Complaint: VOMITING/SOB Time Seen by Provider: 01/01/17 19:25 History Source: Patient, Assisted Records - History of Present Illness Initial Comments: 01/01/17 19:52 61 year old male with DM, HTn, COPD, acute kidney failure, currently in [facility] for PNA, patient was transferred to the ER for admission of FTT, vomiting and decreased PO intake for GTT placement. PMHX as listed. Past History - Past Medical History Allergies/Adverse Reactions: Allergies Allergy/AdvReac Type Severity Reaction Status Date / Time banana Allergy Verified 01/19/17 13:29 Home Medications: Ambulatory Orders Sevelamer HCl [Renagel] 800 mg PO TID 06/22/16 Lactobacillus Acidophilus [Bacid -] 1 tab PO DAILY 30 Days 12/11/16 Acetaminophen [Tylenol .Regular Strength -] 650 mg PO Q12H PRN #0 tablet Albuterol 2.5/Ipratropium 0.5 [Duoneb -] 1 amp NEB TIDR amp 01/24/17 Alprazolam [Xanax] 0.25 mg PO Q8H PRN #0 tablet MDD 3 01/24/17 Aspirin [ASA -] 81 mg PO DAILY tab.chew 01/24/17 Cholestyramine/Aspartame [Questran Light Packet -] 4 gm PO BID packet 01/24/17 Clopidogrel Bisulfate [Plavix -] 75 mg PO DAILY tablet 01/24/17 Collagenase Clostridium Hist. [Santyl -] 1 applic TP DAILY tube 01/24/17 Divalproex Sprinkle [Depakote Sprinkle -] 250 mg GT DAILY cap.sprink 01/24/17 Insulin (Levemir) [Levemir Flexpen -] 10 units SQ BID #1 pen 01/24/17 Levetiracetam [Keppra Oral Solution -] 500 mg PO DAILY 30 Days 01/24/17 Mirtazapine [Remeron -] 7.5 mg PO HS tablet 01/24/17 Nystatin Cream [Mycostatin Cream -] 1 applic TP BID applic 01/24/17 Oxycodone HCl [Roxicodone -] 5 mg PO Q8H PRN #0 tablet MDD 3 01/24/17 Pantoprazole Suspension [Protonix Packets For Oral Suspension -] 40 mg GT DAILY packet 01/24/17 Quetiapine Fumarate [Seroquel -] 25 mg PO BID tablet 01/24/17 Anemia: No Asthma: No Cancer: No Cardiac Disorders: Yes (STENTS X5) CVA: Yes COPD: No CHF: Yes Dementia: No Diabetes: Yes GI Disorders: No Disorders: No HTN: Yes Hypercholesterolemia: Yes Liver Disease: No Suicide Attempt (Hx): No Seizures: No Thyroid Disease: No - Surgical History Abdominal Surgery: No Appendectomy: No Cardiac Surgery: Yes (stents) Cholecystectomy: No Lung Surgery: No Neurologic Surgery: No Orthopedic Surgery: Yes (R. hand, r. foot toes amputated, l. foot 4th & 5th toes amputated) - Immunization History Td Vaccination: Yes TDAP Vaccination: Yes Immunization Up to Date: No - Psycho/Social/Smoking Cessation Hx Anxiety: No Suicidal Ideation: No Smoking Status: No Smoking History: Never smoked Have you smoked in the past 12 months: No Number of Cigarettes Smoked Daily: 0 Information on smoking cessation initiated: No Hx Alcohol Use: No Drug/Substance Use Hx: No Substance Use Type: None Hx Substance Use Treatment: No *Physical Exam - Vital Signs Last Vital Signs Temp Pulse Resp BP Pulse Ox 99.8 F H 127 H 18 109/70 90 L 01/01/17 18:16 01/01/17 18:16 01/01/17 18:16 01/01/17 18:16 01/01/17 18:16 - Physical Exam General Appearance: Yes: Moderate Distress HEENT: positive: Other (intermittent bleeding from left nare) Neck: positive: Trachea midline Respiratory/Chest: positive: Crackles (right bases) Cardiovascular: positive: Tachycardia Gastrointestinal/Abdominal: positive: Normal Bowel Sounds, Soft Musculoskeletal: positive: Normal Inspection Extremity: positive: Normal Capillary Refill, Normal Inspection Integumentary: positive: Dry, Pale Neurologic: positive: Alert, Other (restless). negative: Normal Mood/Affect Heart Score/ECG Review - History History: Moderately suspicious - Electrocardiogram EKG: Normal - Age Age: 45-65 - Risk Factors Risk Factors Heart Score: Yes Hx Hypercholesterolemia, Yes Hx Hypertension, Yes Hx Diabetes Based on the list above the patient has:: >/=3 risk factors or Hx atherosclerotic disease - Troponin Troponin: 1-3x normal limit - Score Heart Score - Total: 5 - ECG Intrepretation Rhythm: Regular Rhythm Comment:: 01/01/17 21:11 sinus tachycardia 129, nonspecific T wave abnormality ED Treatment Course - LABORATORY CBC & Chemistry Diagram: 01/20/17 06:00 01/21/17 08:00 Progress Note - Progress Note Progress Note: A: aspiration pneumonia/ SIRS, respiratory failure, AMS P: blood culture cbc cmp ua IV zosyn Flagyl CT head chest xray ct chest Medical Decision Making - Critical Care Time Total Critical Care Time (minutes): 90 Critical Care Statement: The care of this patient involved high complexity decision making to prevent further life threatening deterioration of the patient 's condition and/or to evaluate & treat vital organ system(s) failure or risk of failure. - Medical Decision Making 01/01/17 21:13 patient signed out to Dr. Sepulveda. ICU admission accepted by Isaiah DAVIS. *DC/Admit/Observation/Transfer Diagnosis at time of Disposition: Respiratory failure Qualifiers: Chronicity: acute Respiratory failure complication: hypoxia and hypercapnia Qualified Code(s): J96.01 - Acute respiratory failure with hypoxia Pneumonia of both lower lobes Qualifiers: Pneumonia type: aspiration pneumonia Aspiration pneumonia type: unspecified Qualified Code(s): J69.0 - Pneumonitis due to inhalation of food and vomit - Discharge Dispostion Condition at time of disposition: Stable Admit: Yes - Prescriptions - Referrals
--- NOTE | 2017-01-01 19:56 | PDOC ---
*Physical Exam - Vital Signs Last Vital Signs Temp Pulse Resp BP Pulse Ox 99.8 F H 127 H 18 109/70 90 L 01/01/17 18:16 01/01/17 18:16 01/01/17 18:16 01/01/17 18:16 01/01/17 18:16 ED Treatment Course - LABORATORY CBC & Chemistry Diagram: 01/07/17 05:15 01/07/17 05:15 Medical Decision Making - Medical Decision Making 01/01/17 19:56 agree with care from RYAN Veliz *DC/Admit/Observation/Transfer Diagnosis at time of Disposition: Respiratory failure, Pneumonia of both lower lobes
[2017-01-01 20:13] LABS: BASOPHIL 0.3 % (0-2.0); EOSINOPHIL 0.3 % (0-4.5); MCH 31.6 pg (25.7-33.7); MCHC 31.9 g/dl (32.0-35.9); MEAN CELL VOLUME 99.1 fl (80-96); MEAN PLT VOLUME 9.9 fl (7.5-11.1); NEUTROPHILS 91.7 % (42.8-82.8); PLATELET COUNT 170 K/MM3 (134-434); RDW 17.6 % (11.9-15.9); WHITE BLOOD COUNT 13.9 K/mm3 (4.0-10.0)
[2017-01-01 20:26] LABS: VENOUS BLOOD GAS HCO3 35.3 meq/L (19-25); VENOUS PH 7.39 (7.32-7.42)
[2017-01-01 20:32] LABS: ALBUMIN 3.1 g/dl (3.4-5.0); ANION GAP 6 (8-16); CALCIUM 9.6 mg/dL (8.5-10.1); CO2 37 mmol/L (21-32); CREATININE 1.5 mg/dL (0.7-1.3); GLUCOSE,RANDOM 78 mg/dL (74-106); SGPT/ALT 23 U/L (12-78); TOT PROT 7.1 g/dl (6.4-8.2)
[2017-01-01 20:35] LABS: ALK PHOS 122 U/L (45-117); CPK 38 IU/L (39-308); TROPONIN I 0.09 ng/ml (0.00-0.05)
[2017-01-01 20:37] LABS: INR 1.21 (0.82-1.09); PROTHROMBIN TIME (PATIENT) 13.4 SEC (9.98-11.88); SGOT/AST 32 U/L (15-37)
[2017-01-01 20:40] LABS: ACTIVATED PTT 31.5 SECONDS (26.9-34.4)
[2017-01-01] MEDS ORDERED: METRONIDAZOLE 500 MG PREMIXED 100 ML IVPB ONE ×2 (21:02→21:24)
[2017-01-01] MEDS ORDERED: PIPERACILLIN/TAZOB 4.5 GM/100 ML PRE-DOCKED IVPB ONE (21:06)
[2017-01-01] MEDS ORDERED: PIPERACILLIN/TAZOB 4.5 GM 100 ML IVPB ONE (21:24)
[2017-01-01] MEDS ORDERED: LORazepam 2 MG/ML SDV VIAL ONE ×2 (21:27→21:51)
--- NOTE | 2017-01-01 22:48 | CONSULT ---
Consult Consult Specialty:: PULM/CCM Referred by:: Dr. Krystal Sepulveda Reason for Consultation:: PNA - History of Present Illness Chief Complaint: PULMONIC SEPSIS History of Present Illness: Mr Maxwell is a 61 y/o man w/ DM, HTN, COPD, & RUBY, recently d/c'ed from [facility] on 12/19 (PNA) --> [facility] for rehab, patient BIBA for deteriorating PO intake, vomiting, & FTT. In the ED the pt was remark for obtunded w/ abnormal L/S. 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: Peripheral Neuropathy Cardio/Vascular: Yes: CAD (CABG 2009., stents x5), CHF, HTN Pulmonary: Yes: COPD Gastrointestinal: Yes: Constipation Renal/: Yes: Renal Inusuff Psych: Yes: Anxiety, Depression Musculoskeletal: Yes: Other Endocrine: Yes: Diabetes Mellitus - Past Surgical History Past Surgical History: Yes: Amputation (left TMT, right 1st and 2nd toes), CABG (2008 at [facility]) - Alcohol/Substance Use Hx Alcohol Use: No - Smoking History Smoking history: Never smoked Have you smoked in the past 12 months: No Aproximately how many cigarettes per day: 0 - Social History Usual Living Arrangement: Snf ADL: Independent 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 Home Medications - Allergies Allergies/Adverse Reactions: Allergies Allergy/AdvReac Type Severity Reaction Status Date / Time banana Allergy Verified 01/01/17 18:47 - Home Medications Home Medications: Ambulatory Orders Ascorbate Calcium [Vitamin C] 500 mg PO DAILY 06/22/16 Calcitriol [Calcitriol -] 0.25 mcg PO DAILY 06/22/16 Levetiracetam [Keppra Xr -] 500 mg PO DAILY 06/22/16 Sevelamer HCl [Renagel] 800 mg PO TID 06/22/16 Atorvastatin Ca [Lipitor] 20 mg PO HS #30 tablet 06/29/16 Acetaminophen [Tylenol .Regular Strength -] 650 mg PO Q4H PRN #0 tablet Furosemide [Lasix -] 20 mg PO DAILY #30 tablet 09/26/16 Insulin (Levemir) [Levemir Vial] 10 units SQ BIDI #10 ml 09/26/16 Insulin Sliding Scale [Novolog Vial Sliding Scale -] 1 vial SQ ACHS units 09/26 Potassium Chloride [K-Dur -] 20 meq PO DAILY #30 tab 09/26/16 Aspirin Coated [Ecotrin -] 81 mg PO DAILY #30 tab 12/11/16 Carvedilol [Coreg -] 3.125 mg PO BID tablet 12/11/16 Clopidogrel Bisulfate [Plavix -] 75 mg PO DAILY tablet 12/11/16 Divalproex [Depakote -] 250 mg PO DAILY tab 12/11/16 Lactobacillus Acidophilus [Bacid -] 1 tab PO DAILY 30 Days 12/11/16 Mirtazapine [Remeron -] 30 mg PO HS tablet 12/11/16 Oxycodone HCl [Roxicodone -] 5 mg PO Q4H PRN #0 tablet MDD 6 12/11/16 Diazepam [Valium] 5 mg PO BID PRN #0 tablet MDD 2 12/20/16 Pantoprazole Sodium [Protonix -] 40 mg PO DAILY tab 12/20/16 Family Disease History - Family Disease History Family History: Unable to Obtain (Pt is obtunded) Family Disease History: Diabetes: Sister Review of Systems Unable to obtain ROS, reason: Pt is Obtunded Physical Exam Vital Signs: Vital Signs Temperature 98.9 F 01/01/17 20:42 Pulse Rate 128 H 01/01/17 20:42 Respiratory Rate 24 01/01/17 20:42 Blood Pressure 106/71 01/01/17 20:42 O2 Sat by Pulse Oximetry (%) 88 L 01/01/17 20:42 Constitutional: Yes: Well Nourished, No Distress, Calm, Other (Obtunded) Eyes: Yes: WNL (surgical L pupil), Other HENT: Yes: WNL, Atraumatic, Normocephalic Neck: Yes: WNL, Supple, Trachea Midline Cardiovascular: Yes: WNL, Regular Rate and Rhythm Respiratory: Yes: Regular, Rhonchi Gastrointestinal: Yes: WNL, Normal Bowel Sounds, Soft ...Rectal Exam: Yes: Deferred Renal/: Yes: WNL Breast(s): Yes: WNL Musculoskeletal: Yes: WNL Extremities: Yes: Amputation Edema: No Peripheral Pulses WNL: Yes Wound/Incision: Yes: Clean/Dry, Well Approximated Neurological: Yes: Unresponsive Psychiatric: Yes: Other (Obtunded) Labs: CBC, BMP 01/01/17 19:55 01/01/17 19:55 Imaging - Results Chest X-ray: Image Reviewed (CXR 01/01: Multi-lobar pna R > L) Problem List - Problems (1) Pneumonia Code(s): J18.9 - PNEUMONIA, UNSPECIFIED ORGANISM Qualifiers: Pneumonia type: due to unspecified organism Laterality: bilateral Lung location: lower lobe of lung Qualified Code(s): J18.9 - Pneumonia, unspecified organism (2) CHF exacerbation Code(s): I50.9 - HEART FAILURE, UNSPECIFIED Qualifiers: Congestive heart failure type: unspecified congestive heart failure type Qualified Code(s): I50.9 - Heart failure, unspecified (3) 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 complication Code(s): E11.29 - TYPE 2 DIABETES MELLITUS W OTH DIABETIC KIDNEY COMPLICATION (4) RUBY (acute kidney injury) Code(s): N17.9 - ACUTE KIDNEY FAILURE, UNSPECIFIED (5) Acquired absence of left foot Code(s): Z89.432 - ACQUIRED ABSENCE OF LEFT FOOT (6) Acquired absence of right foot Code(s): Z89.431 - ACQUIRED ABSENCE OF RIGHT FOOT (7) CAD (coronary artery disease) Code(s): I25.10 - ATHSCL HEART DISEASE OF [place] CORONARY ARTERY W/O ANG PCTRS (8) Cellulitis and abscess of foot Code(s): L03.119 - CELLULITIS OF UNSPECIFIED PART OF LIMB L02.619 - CUTANEOUS ABSCESS OF UNSPECIFIED FOOT (9) manager 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 PLAN: -NPO -Asp Precautions -Supp FiO2 for an SpO2 > 92% -Nebs -Paiz Clxr -CPT -Trend CBC -V/T/Z -TLC -Press for a MAP 65 - 70 -FSs -Cover prn -Stirct I's & O's -Renal dose all -Replete e-lytes prn -Cont Home dose Keppra -Notify Family DGL [id number] PULM
[2017-01-02] MEDS ORDERED: VANCOMYCIN 1,000 MG in DEXTROSE 5%-WATER - 250 ML IVPB ONE (00:45)
[2017-01-02] MEDS ORDERED: NOREPINEPHRINE BITARTRATE 4 MG/4 ML ML IV ONE ×3 (00:54→13:22)
[2017-01-02] MEDS ORDERED: VANCOMYCIN 1 GRAM (PRE-DOCKED) 1,000 MG/250 ML BAG IVPB ONE (01:00)
[2017-01-02] MEDS ORDERED: SODIUM CHLORIDE IVPB ONE (01:00)
[2017-01-02] MEDS ORDERED: TOBRAMYCIN SULFATE IVPB ONE (01:00)
--- NOTE | 2017-01-02 01:00 | PROC ---
Central Line Insertion Indication: CVP Monitoring, Poor Venous Access, Sepsis, Vasopressor Risks and Benefits Explained: Yes Consent on Chart: Yes (Consented Mr. Jonathan Alaniz) Central Line: Triple Lumen Catheter Anesthesia: 1% Lidocaine Sterile Technique: Yes Ultrasound Guided Assistance: Yes Position: Right Internal Jugular Post Insertion: Yes: Bilateral Breath Sounds, Bilateral Chest Expansion, Other Sterile Dressing Applied: Yes Remarks: Placement Confirmed via CXR. Pt tolerated the procedure well.
[2017-01-02] MEDS: NOREPINEPHRINE BITARTRATE 4,000 MCG in DEXTROSE 5%-WATER - 496 ML IV SCH ×2 (01:35→10:21)
[2017-01-02 01:38] LABS: URINE APPEARANCE CLEAR; URINE BILIRUBIN NEGATIVE (NEGATIVE); URINE BLOOD NEGATIVE (NEGATIVE); URINE COLOR YELLOW; URINE GLUCOSE (UA) NEGATIVE (NEGATIVE); URINE KETONE NEGATIVE (NEGATIVE); URINE LEUK ESTERASE NEGATIVE (NEGATIVE); URINE NITRITE NEGATIVE (NEGATIVE); URINE UROBILINOGEN NEGATIVE mg/dL (0.2-1.0)
[2017-01-02 02:05] LABS: URINE PROTEIN 1+ (NEGATIVE)
[2017-01-02 02:10] LABS: URINE HYALINE CAST 1 /lpf; URINE RBC 1 /hpf (0-3); URINE WBC 1 /hpf (3-5)
[2017-01-02 06:27] LABS: MCH 31.3 pg (25.7-33.7); MCHC 31.5 g/dl (32.0-35.9); MEAN CELL VOLUME 99.3 fl (80-96); MEAN PLT VOLUME 9.8 fl (7.5-11.1); PLATELET COUNT 168 K/MM3 (134-434); RDW 17.4 % (11.9-15.9); WHITE BLOOD COUNT 12.7 K/mm3 (4.0-10.0)
[2017-01-02 06:39] LABS: INR 1.28 (0.82-1.09); PROTHROMBIN TIME (PATIENT) 14.2 SEC (9.98-11.88)
[2017-01-02 06:49] LABS: ANION GAP 3 (8-16); CALCIUM 8.7 mg/dL (8.5-10.1); CO2 37 mmol/L (21-32); GLUCOSE,RANDOM 190 mg/dL (74-106); MAGNESIUM 2.3 mg/dL (1.8-2.4)
[2017-01-02 06:50] LABS: CREATININE 1.7 mg/dL (0.7-1.3); PHOSPHOROUS 5.4 mg/dL (2.5-4.9)
[2017-01-02 06:51] LABS: ALBUMIN 2.5 g/dl (3.4-5.0)
[2017-01-02 06:53] LABS: BILIRUBIN,DIRECT 0.4 mg/dL (0.0-0.2); BILIRUBIN,TOTAL 0.8 mg/dL (0.2-1.0); TOT PROT 5.7 g/dl (6.4-8.2)
--- NOTE | 2017-01-02 08:18 | HP ---
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 Cardiovascular: Yes: CAD (CABG 2009., stents x5), CHF, HTN Pulmonary: Yes: COPD Gastrointestinal: Yes: Constipation Renal/: Yes: Renal Inusuff Psych: Yes: Anxiety, Depression Musculoskeletal: Yes: Other Endocrine: Yes: Diabetes Mellitus - Past Surgical History Past Surgical History: Yes: Amputation (left TMT, right 1st and 2nd toes), CABG (2008 at [facility]) - Smoking History Smoking history: Never smoked Have you smoked in the past 12 months: No Aproximately how many cigarettes per day: 0 - Alcohol/Substance Use Hx Alcohol Use: No - Social History ADL: Independent 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 Home Medications - Allergies Allergies/Adverse Reactions: Allergies Allergy/AdvReac Type Severity Reaction Status Date / Time banana Allergy Verified 01/01/17 18:47 - Home Medications Home Medications: Ambulatory Orders Ascorbate Calcium [Vitamin C] 500 mg PO DAILY 06/22/16 Calcitriol [Calcitriol -] 0.25 mcg PO DAILY 06/22/16 Levetiracetam [Keppra Xr -] 500 mg PO DAILY 06/22/16 Sevelamer HCl [Renagel] 800 mg PO TID 06/22/16 Atorvastatin Ca [Lipitor] 20 mg PO HS #30 tablet 06/29/16 Acetaminophen [Tylenol .Regular Strength -] 650 mg PO Q4H PRN #0 tablet Furosemide [Lasix -] 20 mg PO DAILY #30 tablet 09/26/16 Insulin (Levemir) [Levemir Vial] 10 units SQ BIDI #10 ml 09/26/16 Insulin Sliding Scale [Novolog Vial Sliding Scale -] 1 vial SQ ACHS units 09/26 Potassium Chloride [K-Dur -] 20 meq PO DAILY #30 tab 09/26/16 Aspirin Coated [Ecotrin -] 81 mg PO DAILY #30 tab 12/11/16 Carvedilol [Coreg -] 3.125 mg PO BID tablet 12/11/16 Clopidogrel Bisulfate [Plavix -] 75 mg PO DAILY tablet 12/11/16 Divalproex [Depakote -] 250 mg PO DAILY tab 12/11/16 Lactobacillus Acidophilus [Bacid -] 1 tab PO DAILY 30 Days 12/11/16 Mirtazapine [Remeron -] 30 mg PO HS tablet 12/11/16 Oxycodone HCl [Roxicodone -] 5 mg PO Q4H PRN #0 tablet MDD 6 12/11/16 Diazepam [Valium] 5 mg PO BID PRN #0 tablet MDD 2 12/20/16 Pantoprazole Sodium [Protonix -] 40 mg PO DAILY tab 12/20/16 Family Disease History - Family Disease History Family Disease History: Diabetes: Sister Physical Examination Vital Signs: Vital Signs Temperature 97.8 F 01/02/17 06:00 Pulse Rate 84 01/02/17 06:00 Respiratory Rate 12 01/02/17 06:00 Blood Pressure 98/62 01/02/17 06:00 O2 Sat by Pulse Oximetry (%) 100 01/02/17 02:12 Cardiovascular: Yes: Murmur, S1, S2 Respiratory: Yes: Diminished, Rales, Rhonchi Gastrointestinal: Yes: Normal Bowel Sounds, Soft Edema: No Neurological: Yes: Lethargy (--RECEIVED ATIVAN), Weakness Labs: CBC, BMP 01/02/17 05:20 01/02/17 05:20 Imaging - Results Cat Scan: Report Reviewed Problem List - Problems (1) CHF exacerbation Assessment/Plan: on pressers bnp elevated poor lv function cardio consult Code(s): I50.9 - HEART FAILURE, UNSPECIFIED Qualifiers: Congestive heart failure type: unspecified congestive heart failure type Qualified Code(s): I50.9 - Heart failure, unspecified (2) Pneumonia of both lower lobes Assessment/Plan: iv abx id and pulm consult follow cxr follow labs follow cultures Code(s): J18.9 - PNEUMONIA, UNSPECIFIED ORGANISM Qualifiers: Pneumonia type: aspiration pneumonia Aspiration pneumonia type: unspecified Qualified Code(s): J69.0 - Pneumonitis due to inhalation of food and vomit (3) 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 complication Assessment/Plan: bgm monitor Code(s): E11.29 - TYPE 2 DIABETES MELLITUS W OTH DIABETIC KIDNEY COMPLICATION (4) CKD (chronic kidney disease) Assessment/Plan: Laboratory Tests 01/02/17 05:20 Potassium 5.5 H BUN 29 H Creatinine 1.7 H Code(s): N18.9 - CHRONIC KIDNEY DISEASE, UNSPECIFIED Qualifiers: Chronic kidney disease stage: stage 3 (moderate) Qualified Code(s): N18.3 - Chronic kidney disease, stage 3 (moderate) (5) Sepsis Assessment/Plan: on pressers abx follow cultures Code(s): A41.9 - SEPSIS, UNSPECIFIED ORGANISM Qualifiers: Sepsis type: sepsis due to unspecified organism Qualified Code(s): A41.9 - Sepsis, unspecified organism
[2017-01-02] MEDS: levETIRAcetam 500 MG/5 ML INJECTION VIAL IVPB SCH ×2 (09:35→22:34)
[2017-01-02] MEDS: INSULIN SLIDING SCALE (NOVOLOG) 1 VIAL SQ SCH ×3 (09:36→17:30)
--- NOTE | 2017-01-02 10:45 | EKG ---
Test Reason : Blood Pressure : / mmHG Vent. Rate : 129 BPM Atrial Rate : 129 BPM P-R Int : 000 ms QRS Dur : 120 ms QT Int : 366 ms P-R-T Axes : 000 -68 090 degrees QTc Int : 536 ms SINUS TACHYCARDIA LEFT AXIS DEVIATION NON-SPECIFIC INTRA-VENTRICULAR CONDUCTION DELAY NONSPECIFIC T WAVE ABNORMALITY ABNORMAL ECG WHEN COMPARED WITH ECG OF 19-DEC-2016 08:54, PREMATURE VENTRICULAR COMPLEXES ARE NO LONGER PRESENT PREMATURE ATRIAL COMPLEXES ARE NO LONGER PRESENT Confirmed by BRIE CHAHAL MD ([id number]) on 01/02/2017 10:45:09 AM Referred By: Confirmed By:BRIE CHAHAL MD
--- NOTE | 2017-01-02 11:24 | CON.CARD ---
Consult Consult Specialty:: Cardiology Referred by:: Dr. Sepulveda Reason for Consultation:: Sepsis, hypotension, CAD, CHF - History of Present Illness Chief Complaint: admitted for lethargy, ams History of Present Illness: 61 year old man h/o COPD, PAD s/o amputations, PNA, DM, CKD, CAD s/p FL, ischemic CM, Chronic systolic CHF admitted with ams, lethargy, dec appettite, presumed sepsis. PT seen and examined today, sleeping, did not wake up to voice or touch. pt had received sedatives for agitation this am. Hypotension requiring pressors. no reported sob, chest pain, palpitations, edema. 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 Cardio/Vascular: Yes: CAD (CABG 2009., stents x5), CHF, HTN Pulmonary: Yes: COPD Gastrointestinal: Yes: Constipation Renal/: Yes: Renal Inusuff Psych: Yes: Anxiety, Depression Musculoskeletal: Yes: Other Endocrine: Yes: Diabetes Mellitus - Past Surgical History Past Surgical History: Yes: Amputation (left TMT, right 1st and 2nd toes), CABG (2009 at [facility]) - Alcohol/Substance Use Hx Alcohol Use: No - Smoking History Smoking history: Never smoked Have you smoked in the past 12 months: No Aproximately how many cigarettes per day: 0 - Social History Usual Living Arrangement: [facility] ADL: Independent 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 Home Medications - Allergies Allergies/Adverse Reactions: Allergies Allergy/AdvReac Type Severity Reaction Status Date / Time banana Allergy Verified 01/01/17 18:47 - Home Medications Home Medications: Ambulatory Orders Ascorbate Calcium [Vitamin C] 500 mg PO DAILY 06/22/16 Calcitriol [Calcitriol -] 0.25 mcg PO DAILY 06/22/16 Levetiracetam [Keppra Xr -] 500 mg PO DAILY 06/22/16 Sevelamer HCl [Renagel] 800 mg PO TID 06/22/16 Atorvastatin Ca [Lipitor] 20 mg PO HS #30 tablet 06/29/16 Acetaminophen [Tylenol .Regular Strength -] 650 mg PO Q4H PRN #0 tablet Furosemide [Lasix -] 20 mg PO DAILY #30 tablet 09/26/16 Insulin (Levemir) [Levemir Vial] 10 units SQ BIDI #10 ml 09/26/16 Insulin Sliding Scale [Novolog Vial Sliding Scale -] 1 vial SQ ACHS units 09/26 Potassium Chloride [K-Dur -] 20 meq PO DAILY #30 tab 09/26/16 Aspirin Coated [Ecotrin -] 81 mg PO DAILY #30 tab 12/11/16 Carvedilol [Coreg -] 3.125 mg PO BID tablet 12/11/16 Clopidogrel Bisulfate [Plavix -] 75 mg PO DAILY tablet 12/11/16 Divalproex [Depakote -] 250 mg PO DAILY tab 12/11/16 Lactobacillus Acidophilus [Bacid -] 1 tab PO DAILY 30 Days 12/11/16 Mirtazapine [Remeron -] 30 mg PO HS tablet 12/11/16 Oxycodone HCl [Roxicodone -] 5 mg PO Q4H PRN #0 tablet MDD 6 12/11/16 Diazepam [Valium] 5 mg PO BID PRN #0 tablet MDD 2 12/20/16 Pantoprazole Sodium [Protonix -] 40 mg PO DAILY tab 12/20/16 Family Disease History - Family Disease History Family Disease History: Diabetes: Sister Review of Systems Unable to obtain ROS, reason: as per chart Findings/Remarks: pt unable to provide ROS currently - Review of Systems Constitutional: reports: Lethargy, Loss of Appetite, Weakness Eyes: reports: No Symptoms. denies: Blind Spots, Blurred Vision, Double Vision , Eye Pain, Floaters, Photophobia, Recent Change in Vision, Other HENT: reports: No Symptoms. denies: Difficult Swallowing, Ear Discharge, Ear Pain, Epistaxis, Gingival Bleeding, Hearing Loss, Mouth Swelling, Nasal Congestion, Ocular Prosthesis, Throat Pain, Toothache, Ringing in Ears, Other Neck: reports: No Symptoms. denies: Decreased ROM, Lumps, Pain on Movement, Stiffness, Swollen Glands, Tenderness, Other Cardiovascular: denies: Chest Pain, Edema, Palpitations, Shortness of Breath Respiratory: denies: No Symptoms, Cough, Exercise Intolerance, Hemoptysis, Orthopnea, PND, Snoring, SOB, SOB on Exertion, Wheezing, Other Gastrointestinal: denies: No Symptoms, Abdominal Pain, Bloating, Constipation, Diarrhea, Dysphagia, Indigestion, Melena, Nausea, Rectal Bleeding, Vomiting, Vomiting Blood, Other Genitourinary: denies: No Symptoms, Burning, Discharge, Dysuria, Flank Pain, Frequency, Hematuria, Incontinence, Lesions, Menses, Pain, Testicular Mass, Testicular Pain, Testicular Swelling, Urgency, Vaginal Bleeding, Other Musculoskeletal: reports: Muscle Weakness Neurological: reports: Change in LOC - Risk Factors Known Risk Factors: Yes: Diabetes Mellitus, Hypercholesterolemia, Prior FL /Emb Stroke Vital Signs: Vital Signs Temperature 97.6 F 01/02/17 10:00 Pulse Rate 100 H 01/02/17 10:21 Respiratory Rate 12 01/02/17 10:00 Blood Pressure 90/60 01/02/17 10:21 O2 Sat by Pulse Oximetry (%) 100 01/02/17 02:12 Constitutional: Yes: No Distress, Calm Eyes: Yes: Conjunctiva Clear HENT: Yes: Atraumatic, Normocephalic Neck: Yes: Supple Respiratory: Yes: Regular, CTA Bilaterally. No: Rales, Rhonchi, SOB, Wheezes Gastrointestinal: Yes: Normal Bowel Sounds, Soft. No: Distention, Tenderness Cardiovascular: Yes: Regular Rate and Rhythm. No: Bradycardia, Tachycardia, Pulse Irregular, Gallop, Rub, Varicosities, Other JVD: No Carotid Bruit: No PMI: Non-Displaced Heart Sounds: Yes: S1, S2. No: Split S2, S3, S4, Clicks, Gallop, Rub, Bruit Murmur: No: Systolic Murmur, Diastolic Murmur Extremities: Yes: Amputation Edema: No Peripheral Pulses WNL: No Neurological: Yes: Lethargy. No: Alert, Oriented Psychiatric: No: Alert, Oriented - Other Data Labs, Other Data: CBC, BMP 01/02/17 05:20 01/02/17 05:20 INR, PTT INR 1.28 (0.82-1.09) H 01/02/17 05:20 Troponin, BNP 01/02/17 05:20 B-Natriuretic Peptide 47382.05 H Troponin, BNP 01/02/17 05:20 B-Natriuretic Peptide 87305.05 H ekg-sinus tach 130bpm, nsst, lad Echo: Report Reviewed Imaging - Results Chest X-ray: Report Reviewed, Image Reviewed EKG: Report Reviewed, Image Reviewed Other: Report Reviewed, Image Reviewed (tele-nsr, pvcs) Assessment/Plan 61 year old man h/o COPD, PAD s/o amputations, PNA, DM, CKD, CAD s/p FL, ischemic CM, Chronic systolic CHF admitted with ams, lethargy, dec appettite, presumed sepsis. Hypotension-presumed sepsis and intravascular depletion -pressors as per ICU -receiving Abx -hold lasix in setting of intravascular depletion CAD h/o FL, ischemic cardiomyopathy with chronic systolic CHF -currently intravascularly depleted, hold lasix -resume ASA when tolerates po
--- NOTE | 2017-01-02 12:14 | PN ---
Teaching Attending Note Name of Resident: Neil Liu ATTENDING PHYSICIAN STATEMENT I saw and evaluated the patient. I reviewed the resident's note and discussed the case with the resident. I agree with the resident's findings and plan as documented. SUBJECTIVE: Patient seen and examined in the ICU. Lethargic and poorly responsive. Remains on NE for hemodynamic support. Intake & Output 12/30/16 12/31/16 01/01/17 01/02/17 23:59 23:59 23:59 23:59 Intake Total 100 Output Total 50 400 Balance 50 -400 Weight 160 lb 178 lb 9.6 oz Last Vital Signs Temp Pulse Resp BP Pulse Ox 97.6 F 100 H 12 90/60 100 01/02/17 10:00 01/02/17 10:21 01/02/17 10:00 01/02/17 10:21 01/02/17 02:12 Active Medications Tobramycin Sulfate 150 mg/ (Sodium Chloride) 103.75 mls @ 100 mls/hr IVPB ONCE ONE PRN Reason: Protocol Stop: 01/03/17 07:02 Vancomycin HCl 1,000 mg/ (Dextrose) 250 mls @ 200 mls/hr IVPB Q24H [facility]AME Norepinephrine Bitartrate 4, (000 mcg/ Dextrose) 500 mls @ 37.5 mls/hr IV TITR MAAME; 5 MCG/MIN PRN Reason: Protocol Last Admin: 01/02/17 10:21 Dose: 75 mls/hr Insulin Aspart (Novolog Vial Sliding Scale -) 1 vial SQ Q6HPO MAAME PRN Reason: Protocol Last Admin: 01/02/17 09:36 Dose: Not Given Levetiracetam (Keppra Injection -) 500 mg IVPB BID MAAME Last Admin: 01/02/17 09:35 Dose: 500 mg Constitutional: Yes: Lethargic, poorly responsive Eyes: Yes: WNL (surgical L pupil), Other HENT: Yes: WNL, Atraumatic, Normocephalic Neck: Yes: WNL, Supple, Trachea Midline Cardiovascular: Yes: WNL, Regular Rate and Rhythm Respiratory: Yes: Scattered bilateral Rhonchi Gastrointestinal: Yes: WNL, Normal Bowel Sounds, Soft ...Rectal Exam: Yes: Deferred Renal/: Yes: WNL Breast(s): Yes: WNL Musculoskeletal: Yes: WNL Extremities: Yes: Amputation Edema: No Peripheral Pulses WNL: Yes Neurological: Yes: Poorly responsive Labs: Laboratory Results - last 24 hr 01/01/17 01/01/17 01/01/17 19:55 19:55 19:55 WBC 13.9 H D RBC 3.23 L Hgb 10.2 L Hct 32.0 L MCV 99.1 H MCH 31.6 MCHC 31.9 L RDW 17.6 H Plt Count 170 MPV 9.9 D Neutrophils % 91.7 H D Lymphocytes % 3.0 L D Monocytes % 4.7 Eosinophils % 0.3 D Basophils % 0.3 INR 1.21 H PTT (Actin FS) 31.5 VBG pH POC VBG pCO2 POC VBG pO2 Mixed VBG HCO3 Sodium 142 Potassium 5.7 H D Chloride 99 Carbon Dioxide 37 H D Anion Gap 6 L BUN 25 H Creatinine 1.5 H Creat Clearance w eGFR 47.27 Random Glucose 78 Lactic Acid Calcium 9.6 Phosphorus Magnesium Total Bilirubin 1.0 D Direct Bilirubin AST 32 D ALT 23 D Alkaline Phosphatase 122 H D Creatine Kinase 38 L Troponin I 0.09 H D B-Natriuretic Peptide Total Protein 7.1 D Albumin 3.1 L D Urine Color Urine Appearance Urine pH Urine Protein Urine Glucose (UA) Urine Ketones Urine Blood Urine Nitrite Urine Bilirubin Urine Urobilinogen Ur Leukocyte Esterase Urine RBC Urine WBC Hyaline Casts Blood Type Antibody Screen 01/01/17 01/01/17 01/01/17 19:55 19:55 19:55 WBC RBC Hgb Hct MCV MCH MCHC RDW Plt Count MPV Neutrophils % Lymphocytes % Monocytes % Eosinophils % Basophils % INR PTT (Actin FS) VBG pH POC VBG pCO2 POC VBG pO2 Mixed VBG HCO3 Sodium Potassium Chloride Carbon Dioxide Anion Gap BUN Creatinine Creat Clearance w eGFR Random Glucose Lactic Acid 3.0 H* Calcium Phosphorus Magnesium Total Bilirubin Direct Bilirubin AST ALT Alkaline Phosphatase Creatine Kinase Troponin I B-Natriuretic Peptide 72208.06 H Total Protein Albumin Urine Color Urine Appearance Urine pH Urine Protein Urine Glucose (UA) Urine Ketones Urine Blood Urine Nitrite Urine Bilirubin Urine Urobilinogen Ur Leukocyte Esterase Urine RBC Urine WBC Hyaline Casts Blood Type O POSITIVE Antibody Screen Negative 01/01/17 01/02/17 01/02/17 20:20 01:00 01:00 WBC RBC Hgb Hct MCV MCH MCHC RDW Plt Count MPV Neutrophils % Lymphocytes % Monocytes % Eosinophils % Basophils % INR PTT (Actin FS) VBG pH 7.39 POC VBG pCO2 59.7 H D POC VBG pO2 23.2 L Mixed VBG HCO3 35.3 H Sodium Potassium Chloride Carbon Dioxide Anion Gap BUN Creatinine Creat Clearance w eGFR Random Glucose Lactic Acid 1.0 Calcium Phosphorus Magnesium Total Bilirubin Direct Bilirubin AST ALT Alkaline Phosphatase Creatine Kinase Troponin I B-Natriuretic Peptide Total Protein Albumin Urine Color Yellow Urine Appearance Clear Urine pH 5.0 Urine Protein 1+ H Urine Glucose (UA) Negative Urine Ketones Negative Urine Blood Negative Urine Nitrite Negative Urine Bilirubin Negative Urine Urobilinogen Negative Ur Leukocyte Esterase Negative Urine RBC 1 Urine WBC 1 Hyaline Casts 1 Blood Type Antibody Screen 01/02/17 01/02/17 01/02/17 05:20 05:20 05:20 WBC 12.7 H RBC 2.56 L D Hgb 8.0 L D Hct 25.4 L D MCV 99.3 H MCH 31.3 MCHC 31.5 L RDW 17.4 H Plt Count 168 MPV 9.8 Neutrophils % Lymphocytes % Monocytes % Eosinophils % Basophils % INR 1.28 H PTT (Actin FS) VBG pH POC VBG pCO2 POC VBG pO2 Mixed VBG HCO3 Sodium 139 Potassium 5.5 H Chloride 99 Carbon Dioxide 37 H Anion Gap 3 L BUN 29 H Creatinine 1.7 H Creat Clearance w eGFR Random Glucose 190 H D Lactic Acid Calcium 8.7 Phosphorus 5.4 H D Magnesium 2.3 Total Bilirubin Direct Bilirubin AST ALT Alkaline Phosphatase Creatine Kinase Troponin I B-Natriuretic Peptide Total Protein Albumin Urine Color Urine Appearance Urine pH Urine Protein Urine Glucose (UA) Urine Ketones Urine Blood Urine Nitrite Urine Bilirubin Urine Urobilinogen Ur Leukocyte Esterase Urine RBC Urine WBC Hyaline Casts Blood Type Antibody Screen 01/02/17 01/02/17 01/02/17 05:20 05:20 05:20 WBC RBC Hgb Hct MCV MCH MCHC RDW Plt Count MPV Neutrophils % Lymphocytes % Monocytes % Eosinophils % Basophils % INR PTT (Actin FS) VBG pH POC VBG pCO2 POC VBG pO2 Mixed VBG HCO3 Sodium Potassium Chloride Carbon Dioxide Anion Gap BUN Creatinine Creat Clearance w eGFR Random Glucose Lactic Acid 1.0 Calcium Phosphorus Magnesium Total Bilirubin 0.8 Direct Bilirubin 0.4 H AST 28 ALT 18 D Alkaline Phosphatase 87 D Creatine Kinase Troponin I B-Natriuretic Peptide 23126.05 H Total Protein 5.7 L Albumin 2.5 L Urine Color Urine Appearance Urine pH Urine Protein Urine Glucose (UA) Urine Ketones Urine Blood Urine Nitrite Urine Bilirubin Urine Urobilinogen Ur Leukocyte Esterase Urine RBC Urine WBC Hyaline Casts Blood Type Antibody Screen Problem List - Problems (1) Pneumonia Code(s): J18.9 - PNEUMONIA, UNSPECIFIED ORGANISM Qualifiers: Pneumonia type: due to unspecified organism Laterality: bilateral Lung location: lower lobe of lung Qualified Code(s): J18.9 - Pneumonia, unspecified organism (2) CHF exacerbation Code(s): I50.9 - HEART FAILURE, UNSPECIFIED Qualifiers: Congestive heart failure type: unspecified congestive heart failure type Qualified Code(s): I50.9 - Heart failure, unspecified (3) 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 complication Code(s): E11.29 - TYPE 2 DIABETES MELLITUS W OTH DIABETIC KIDNEY COMPLICATION (4) RUBY (acute kidney injury) Code(s): N17.9 - ACUTE KIDNEY FAILURE, UNSPECIFIED (5) Acquired absence of left foot Code(s): Z89.432 - ACQUIRED ABSENCE OF LEFT FOOT (6) Acquired absence of right foot Code(s): Z89.431 - ACQUIRED ABSENCE OF RIGHT FOOT (7) CAD (coronary artery disease) Code(s): I25.10 - ATHSCL HEART DISEASE OF [place] CORONARY ARTERY W/O ANG PCTRS (8) Cellulitis and abscess of foot Code(s): L03.119 - CELLULITIS OF UNSPECIFIED PART OF LIMB L02.619 - CUTANEOUS ABSCESS OF UNSPECIFIED FOOT (9) care home current use of insulin Code(s): Z79.4 - SNF (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 OF INSULIN Assessment/Plan Septic Shock due to PNA Toxic Metabolic Encephalopathy suspected (?) Hypercapnia DM HTN COPD RUBY Bilateral PNA (?) aspiration Acute Respiratory Failure PLAN: Broad ABX O2 as needed Aspiration precautions NPO BD TX Follow cultures Pressors for a MAP 65 - 70 Glycemic control VTE prophylaxis Check ABG Dr Villatoro Critical Care Time/MDM Note Total Critical Care Time: 35 Critical Care Statement: The care of this patient involved high complexity decision making to prevent further life threatening deterioration of the patient 's condition and/or to evalute & treat vital organ system(s) failure or risk of failure.
[2017-01-02] MEDS ORDERED: PIPERACILLIN/TAZOB 3.375 GM/50 ML PRE-DOCKED IVPB STA (12:27)
--- NOTE | 2017-01-02 12:50 | PN ---
Progress Note, Physician - Current Medication List Current Medications: Active Medications Aspirin (Ecotrin -) 81 mg PO DAILY [facility] Clopidogrel Bisulfate (Plavix -) 75 mg PO DAILY [facility] Divalproex Sodium (Depakote Sprinkle Caps -) 250 mg PO DAILY [facility] Tobramycin Sulfate 150 mg/ (Sodium Chloride) 103.75 mls @ 100 mls/hr IVPB ONCE ONE PRN Reason: Protocol Stop: 01/03/17 07:02 Vancomycin HCl 1,000 mg/ (Dextrose) 250 mls @ 200 mls/hr IVPB Q24H [facility] Norepinephrine Bitartrate 4, 000 mcg/ Dextrose/Sodium Chloride 500 mls @ 37.5 mls/hr IV TITR MAAME; 5 MCG/MIN PRN Reason: Protocol Insulin Aspart (Novolog Vial Sliding Scale -) 1 vial SQ Q6HPO [facility]AME PRN Reason: Protocol Last Admin: 01/02/17 09:36 Dose: Not Given Levetiracetam (Keppra Injection -) 500 mg IVPB BID MAAME Last Admin: 01/02/17 09:35 Dose: 500 mg - Objective Vital Signs: Vital Signs Temperature 97.6 F 01/02/17 10:00 Pulse Rate 86 01/02/17 12:00 Respiratory Rate 12 01/02/17 12:00 Blood Pressure 120/76 01/02/17 12:00 O2 Sat by Pulse Oximetry (%) 100 01/02/17 02:12 Constitutional: Yes: No Distress, Other (lethargic) Eyes: Yes: Conjunctiva Clear HENT: Yes: Atraumatic, Normocephalic Neck: Yes: Supple, Trachea Midline Cardiovascular: Yes: Regular Rate and Rhythm, JVD Respiratory: Yes: Other (scattered crackles bilaterally) Gastrointestinal: Yes: Soft. 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 LLE knee ulcer with granulation tissue and fibrinous exudate/ RLE TMA stump C/D/I RLE plantar ulcer with callous formation) Edema: No Neurological: Yes: Lethargy Labs: CBC, BMP 01/02/17 05:20 01/02/17 05:20 INR, PTT INR 1.28 (0.82-1.09) H 01/02/17 05:20 - ....Imaging Chest X-ray: Report Reviewed, Image Reviewed Cat Scan: Report Reviewed, Image Reviewed Assessment/Plan 61M with multiple medical co-morbidities presented to the ED with poor oral intake weakness failure to thrive and septic shock secondary to pneumonia. combined Septic and cardiogenic shock:secondary to bilateral multilobar healthcare acquired pneumonia. patient is from residential and CHF exacerbation. patient with severely reduced EF on both right and left side with diastolic dysfunction CT scan of chest and CXR reviewed. patient received tobramycin vancomycin and zosyn will give another dose of zosyn now pending ID evaluation central line CVP monitoring IVF levophed-will try to mean as tolerated f/u BCx and UCx strict I/Os Galindo for urine monitoring to assess resuscitation status will send C. Diff. spoke to cousin of patient who states he has had diarrhea for a while and has been on antibiotics Will consider dobutamine for cardiogenic shock. CXR in AM ABG Lethargy: possible infectious encephalopathy patient did receive Ativan in the ED for CT scan it is possible there is residual effect of benzos affecting the patient's mental status will do ABD to make sure patient is not hypercapneic and exhibiting CO2 narcosis Failure to thrive: encourage PO intake primary team to consider possible PEG when sepsis resolves RUBY: likely secondary to hypovolemia, sepsis and hypoperfusion will trend creatinine IVF for hydration consider nephrology consult if worsens CAD s/p CABG: restart aspirin restart plavix hold statin until able to tolerate PO acute of chronic exacerbation of 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 CHF: cardiology evaluation appreciated hold coreg as patient is in septic shock hold lasix as patient is in septic shock monitor CVP frequently as not to fluid overload patient monitor fluid status Strict I/Os daily weight PVD: restart statin whentaking PO continue plavix continue aspirin vascular consult for ulceration which is potentially infected COPD: not in active exacerbation nebulizers if needed h/o seizures: continue depakote continue keppra DM: patient is NPO BGM Q6h ISS Q6h hold long acting insulin for now until patient is taking PO Anxiety: Currently not an issue FEN: D5NS @ 75ml/hr to be given with levophed gtt hyperkalemia:will trend potassium and treat as necessary NPO for now PPx: Start HSQ/SCDs no GI PPx at this time- will start if has a prolonged ICU stay PT consult when able to participate
[2017-01-02] MEDS: ASPIRIN COATED 81 MG TABLET.EC PO SCH (13:10)
[2017-01-02] MEDS: CLOPIDOGREL BISULFATE 75 MG TABLET (FP) PO SCH (13:10)
[2017-01-02] MEDS: NORMAL SALINE IV SCH (13:23)
[2017-01-02] MEDS: DEXTROSE 5% IV SCH (13:23)
[2017-01-02] MEDS: NOREPINEPHRINE BITARTRATE IV SCH (13:23)
[2017-01-02] MEDS: HEPARIN NA (PORCINE) 5,000 UNITS/ML 1ML VIAL SQ SCH ×2 (13:24→22:34)
[2017-01-02 13:53] LABS: ARTERIAL BLD GAS O2 SATURATION 97.7 % (90-98.9); ARTERIAL BLOOD GAS BASE EXCESS 7.2 meq/l (-2-2); ARTERIAL BLOOD GAS HCO3 34.3 meq/L (22-26); ARTERIAL BLOOD GAS PO2 97.8 mmHg (80-100)
[2017-01-02 13:55] LABS: ALLENS TEST POSITIVE; ART PUNCT SITE RIGHT RADIAL; ARTERIAL BLOOD GAS pH 7.31 (7.35-7.45); LPM/O2% 4; PT. ON O2? YES; TYPE OF O2 N/C
--- NOTE | 2017-01-02 14:20 | PN ---
Progress Note (short form) - Note Progress Note: ID Consult dictated Respiratory failure Bilateral pneumonia Large R pleural effusion Septic shock COPD exacerbation CKD Toxic metabolic encephalopathy Continue hemodynamic/ respiratory support Empiric zosyn/ vancomycin pending c/s Critical care time 35min
--- NOTE | 2017-01-02 15:03 | CONS ---
INFECTIOUS DISEASE CONSULTATION DATE OF CONSULTATION: DATE OF DICTATION: 01/02/2017 HISTORY OF PRESENT ILLNESS: The patient is a 61-year-old, diabetic male with a history of coronary artery disease and COPD, evaluated for septic shock. Patient has had multiple recent hospital admissions, most recently for diarrhea and dehydration. He was transferred to a nursing home facility. At the nursing facility, he was noted to be increasingly short of breath, lethargic, and suffering from anorexia. There were reports of nausea and vomiting. He was transferred to the emergency room where he was evaluated. He was found to be hypoxemic with low-grade fever and elevated white blood cell count. A CAT scan shows a large right pleural effusion with associated lung consolidation as well as a smaller left pleural effusion and a left lower lobe infiltrate. Cultures were obtained. He was empirically treated with vancomycin, Zosyn, and tobramycin. At the present time, he is lethargic but arousable. He is sedated. He had received Ativan prior to the CAT scan. The patient's breathing has become more shallow, and he is about to be placed on a BiPAP mask. No reports of high-grade fever or shaking chills at the halfway. He has had a history of multiple recurrent hospital admissions for diabetic foot infections and recurrent sepsis. He has had a history of MRSA as well as enterococcal bacteremia in the past. PAST MEDICAL HISTORY: Positive for COPD, coronary artery disease, hypertension, diabetes, peripheral vascular disease. PAST SURGICAL HISTORY: Status post right transmetatarsal amputation, status post left cokep-uns-hesd amputation. ALLERGIES: No known allergies. MEDICATIONS: Include norepinephrine, heparin, Depakote, Keppra, aspirin, Plavix. SOCIAL HISTORY: Presently residing in a nursing home facility. Nonsmoker, nondrinker. SYSTEMS REVIEW: Neurologic: Positive for lethargy. No loss of consciousness, seizure activity, or focal weakness. Cardiac: Negative chest pain and palpitations. Respiratory: As per HPI. Gastrointestinal: Positive for nausea and vomiting. No diarrhea. Genitourinary: Negative for urinary tract infection. LABORATORY DATA: White count 12.7, hematocrit 25.4, platelet count 168. BUN 29, creatinine 1.7. Urinalysis: White cells 1. CAT scan of the chest as mentioned. PHYSICAL EXAMINATION: General: He is lethargic but arousable. Vital Signs: His temperature 97.6, T-max 99.8; blood pressure 116/76; pulse 86, regular; respirations 12 per minute. HEENT: Sclerae are anicteric. Heart: Sounds S1, S2. Lungs: Diminished breath sounds bilaterally. Abdomen: Soft. No tenderness elicited. No mass, rebound, or rigidity. Extremities: Status post right transmetatarsal amputation. The amputation site is well healed. On the right foot, there is a 2-cm callus which does not appear to be infected. Examination of the left lower extremity: He is status post left BKA. There is a partial wound dehiscence at the medial and lateral aspects of the surgical wound. No purulent drainage is noted. An ulceration is present over the left patella, approximately 1.5 cm in diameter. No purulent drainage. IMPRESSION: 1. Impending respiratory failure. 2. Bilateral pneumonia, healthcare associated. 3. Bilateral pleural effusions, right greater than left. 4. Septic shock. 5. Chronic obstructive pulmonary disease exacerbation. 6. Chronic kidney disease. 7. Toxic metabolic encephalopathy. Continue hemodynamic and respiratory support. Pending sepsis workup, empiric antibiotic coverage with Zosyn and vancomycin. ICU monitoring. Patient to be placed on BiPAP. Would consider diagnostic/therapeutic thoracentesis. CRITICAL CARE TIME SPENT: Thirty-five minutes. Thank you for the kind referral. LANA FOX M.D. [id number]
[2017-01-02] MEDS ORDERED: morphine CARPU-JECT 2 MG/1 ML DISP.SYRIN ONE (15:12)
--- NOTE | 2017-01-02 16:05 | PROC ---
Chest Tube Insertion Consent on Chart: Yes Risks and Benefits Explained: Yes Chest tube #1 Indication: Pleural Effusion Chest Tube Location: Right Lateral Anesthesia: 1% Lidocaine Size (Fr.): 14 Sterile Technique: Yes Tube Sutured to Skin: Yes Vaseline gauze dressing: No Chest Tube Collection System: Pleur-Evac Suction: Yes Drainage, Color/Appearance: Straw Amount (ml): 1,850 (clamped ) Remarks: no complications CXR pending pleural fluid studies sent for analysis cytology cell count pH gram stain fungal AFB LDH Glucose triglycerides protein
--- NOTE | 2017-01-02 17:16 | PN ---
Progress Note (short form) - Note Progress Note: Vascular surgery: Pt admitted to the hospital yesterday for pneumonia. Asked by the ICU staff to evaluate his Left BKA site. The patient had a left BKA on 09/19/[address] Aguillon and was last seen by him yesterday in the nursing facility. He is s/p right pigtail cath for effusion Vital Signs Period Temp Pulse Resp BP Sys/Mejia Pulse Ox Last 24 Hr 97.6 F-99.8 F 84-128 12-24 90-120/60-87 85-100 PMHX: Peripheral Neuropathy,CAD (CABG 2009., stents x5), CHF, HTN, COPD, Renal insuffuciency, DM GEN: Arousable but lethargic (s/p sedation for pigtail cath insertion) Left lower ext: BKA suture line healed except for small 1x2 cm superficial wound with minimal exudate on the medial/lateral aspect. The is no tracking or openings or driange noted with palpation. The stump does have some purplish discoloration but isn't cellulitis. The BKA is soft and not warm to touch. Left patella a 2 x 2cm superficial wound. Right Pigtail pelurovac with with serous fluid. Vital Signs Period Temp Pulse Resp BP Sys/Mejia Pulse Ox Last 24 Hr 97.6 F-99.8 F 84-128 12-24 90-120/60-87 85-100 CBC, BMP 01/02/17 05:20 01/02/17 05:20 A/P: 61 yo male admitted with respiratory failure, pneumonia h/o L BKA Case D/w Dr Aguillon and local wound care ordered No evidence of infection to left BKA stump, local wound care ordered. Recommend to keep open areas covered and treat with santyl.
[2017-01-02] MEDS: PIPERACILLIN/TAZOB 3.375 GM 50 ML IVPB SCH (17:19)
[2017-01-02] MEDS: DIVALPROEX SODIUM 125 MG SPRINKLE CAPS (FP) PO SCH (17:20)
[2017-01-02] MEDS: VANCOMYCIN 1 GRAM (PRE-DOCKED) 250 ML IVPB SCH (17:20)
[2017-01-02] MEDS ORDERED: morphine CARPU-JECT 2 MG/1 ML DISP.SYRIN IVPUSH ONE (17:26)
[2017-01-02 20:01] LABS: PLEURAL FLUID APPEARANCE CLEAR; PLEURAL FLUID COLOR YELLOW; PLEURAL FLUID SOURCE PLEURAL
[2017-01-02 20:35] LABS: PLEURAL FLUID LYMPHOCYTES 13 %; PLEURAL FLUID MACROPHAGES 7 %; PLEURAL FLUID NEUTROPHIL 31 %
[2017-01-03] MEDS: INSULIN SLIDING SCALE (NOVOLOG) 1 VIAL SQ SCH ×4 (04:20→17:52)
[2017-01-03] MEDS: PIPERACILLIN/TAZOB 3.375 GM 50 ML IVPB SCH ×3 (04:21→17:25)
[2017-01-03] MEDS: HEPARIN NA (PORCINE) 5,000 UNITS/ML 1ML VIAL SQ SCH ×3 (05:37→22:05)
[2017-01-03] MEDS ORDERED: TOBRAMYCIN SULFATE IVPB ONE (06:00)
[2017-01-03] MEDS ORDERED: SODIUM CHLORIDE IVPB ONE (06:00)
[2017-01-03] MEDS ORDERED: VANCOMYCIN 1,000 MG in DEXTROSE 5%-WATER - 250 ML IVPB SCH (06:00)
[2017-01-03 06:02] LABS: MCH 31.5 pg (25.7-33.7); MEAN CELL VOLUME 98.4 fl (80-96); MEAN PLT VOLUME 9.5 fl (7.5-11.1); PLATELET COUNT 123 K/MM3 (134-434); RDW 17.6 % (11.9-15.9); WHITE BLOOD COUNT 4.5 K/mm3 (4.0-10.0)
[2017-01-03 06:33] LABS: INR 1.28 (0.82-1.09); PROTHROMBIN TIME (PATIENT) 14.2 SEC (9.98-11.88)
[2017-01-03 06:36] LABS: ACTIVATED PTT 38.2 SECONDS (26.9-34.4)
[2017-01-03 06:42] LABS: ALBUMIN 2.1 g/dl (3.4-5.0); ANION GAP 5 (8-16); CALCIUM 8.3 mg/dL (8.5-10.1); CO2 38 mmol/L (21-32); CREATININE 1.6 mg/dL (0.7-1.3); GLUCOSE,RANDOM 91 mg/dL (74-106); MAGNESIUM 2.1 mg/dL (1.8-2.4); PHOSPHOROUS 3.4 mg/dL (2.5-4.9); SGOT/AST 16 U/L (15-37); SGPT/ALT 13 U/L (12-78)
[2017-01-03 06:44] LABS: ALK PHOS 70 U/L (45-117); BILIRUBIN,TOTAL 0.8 mg/dL (0.2-1.0)
--- NOTE | 2017-01-03 08:44 | PN ---
Progress Note, Physician Chief Complaint: alert TELE: NSR, periods of sinus tach. Rare VPCs - Current Medication List Current Medications: Active Medications Aspirin (Ecotrin -) 81 mg PO DAILY [facility] Last Admin: 01/02/17 13:10 Dose: 81 mg Clopidogrel Bisulfate (Plavix -) 75 mg PO DAILY [facility] Last Admin: 01/02/17 13:10 Dose: 75 mg Collagenase (Santyl -) 1 applic TP DAILY [facility] Divalproex Sodium (Depakote Sprinkle Caps -) 250 mg PO DAILY [facility] Last Admin: 01/02/17 17:20 Dose: 250 mg Heparin Sodium (Porcine) (Heparin -) 5,000 unit SQ TID [facility] Last Admin: 01/03/17 05:37 Dose: 5,000 unit Norepinephrine Bitartrate 4, 000 mcg/ Dextrose/Sodium Chloride 500 mls @ 37.5 mls/hr IV TITR MAAME; 5 MCG/MIN PRN Reason: Protocol Last Titration: 01/03/17 05:34 Dose: 0 mcg/min Vancomycin HCl (Vancomycin (Pre-Docked)) 250 mls @ 200 mls/hr IVPB DAILY@1800 [facility] Last Admin: 01/02/17 17:20 Dose: 200 mls/hr Piperacillin Sod/Tazobactam Sod (Zosyn 3.375gm Ivpb (Pre-Docked)) 50 mls @ 100 mls/hr IVPB Q8H-IV [facility] PRN Reason: Protocol Last Admin: 01/03/17 04:21 Dose: 100 mls/hr Insulin Aspart (Novolog Vial Sliding Scale -) 1 vial SQ Q6HPO [facility] PRN Reason: Protocol Last Admin: 01/03/17 05:37 Dose: Not Given Levetiracetam (Keppra Injection -) 500 mg IVPB BID [facility] Last Admin: 01/02/17 22:34 Dose: 500 mg - Objective Vital Signs: Vital Signs Temperature 97.5 F L 01/03/17 07:51 Pulse Rate 77 01/03/17 07:51 Respiratory Rate 18 01/03/17 07:51 Blood Pressure 92/57 01/03/17 07:51 O2 Sat by Pulse Oximetry (%) 94 L 01/03/17 07:48 Constitutional: Yes: No Distress Eyes: Yes: Conjunctiva Clear Cardiovascular: Yes: Regular Rate and Rhythm Respiratory: Yes: Other (decreased breath sounds at bases.) Gastrointestinal: Yes: Soft Edema: No Neurological: Yes: Alert Labs: CBC, BMP 01/03/17 05:10 01/03/17 05:10 INR, PTT INR 1.28 (0.82-1.09) H 01/03/17 05:10 Microbiology 01/02/17 00:40 Blood - Central Line Blood Culture - Preliminary NO GROWTH OBTAINED AFTER 24 HOURS, INCUBATION TO CONTINUE FOR 4 DAYS. 01/02/17 00:40 Blood - Central Line Blood Culture - Preliminary NO GROWTH OBTAINED AFTER 24 HOURS, INCUBATION TO CONTINUE FOR 4 DAYS. 01/01/17 19:55 Blood - Peripheral Venous Blood Culture - Preliminary NO GROWTH OBTAINED AFTER 24 HOURS, INCUBATION TO CONTINUE FOR 4 DAYS. 01/01/17 19:55 Blood - Peripheral Venous Blood Culture - Preliminary NO GROWTH OBTAINED AFTER 24 HOURS, INCUBATION TO CONTINUE FOR 4 DAYS. Laboratory Tests 01/03/17 01/03/17 01/03/17 05:10 05:10 05:10 WBC 4.5 D Hgb 7.9 L Plt Count 123 L D INR 1.28 H Sodium 141 Potassium 4.6 Creatinine 1.6 H - ....Imaging EKG: Image Reviewed Assessment/Plan Assessment/Plan 61 year old man h/o COPD, PAD s/o amputations, PNA, DM, CKD, CAD s/p IA, ischemic CM, Chronic systolic CHF admitted with ams, lethargy, dec appettite, presumed sepsis. Hypotension-presumed sepsis and intravascular depletion -pressors as per ICU -receiving Abx -hold lasix in setting of intravascular depletion CAD h/o IA, ischemic cardiomyopathy with chronic systolic CHF -currently intravascularly depleted, hold lasix -ASA to be resumed.
[2017-01-03] MEDS: ASPIRIN COATED 81 MG TABLET.EC PO SCH (09:35)
[2017-01-03] MEDS: CLOPIDOGREL BISULFATE 75 MG TABLET (FP) PO SCH (09:35)
[2017-01-03] MEDS: COLLAGENASE CLOSTRIDIUM HIST. 30 GRAMS TUBE TP SCH (09:36)
[2017-01-03] MEDS: DIVALPROEX SODIUM 125 MG SPRINKLE CAPS (FP) PO SCH (09:36)
--- NOTE | 2017-01-03 12:30 | PROC ---
Central Line Insertion Indication: CVP Monitoring, Poor Venous Access, Sepsis, Vasopressor Risks and Benefits Explained: Yes Consent on Chart: Yes Central Line: Triple Lumen Catheter Anesthesia: 1% Lidocaine Sterile Technique: Yes Ultrasound Guided Assistance: Yes Position: Right Internal Jugular Post Insertion: Yes: Bilateral Breath Sounds, Chest X-Ray Ordered Sterile Dressing Applied: Yes Remarks: No complications
--- NOTE | 2017-01-03 12:47 | PN ---
Teaching Attending Note Name of Resident: Neil Liu ATTENDING PHYSICIAN STATEMENT I saw and evaluated the patient. I reviewed the resident's note and discussed the case with the resident. I agree with the resident's findings and plan as documented. SUBJECTIVE: Patient seen and examined in the ICU. Awake and responsive. Noted he dislodged his CVC. Required NIPPV overnight. Intake & Output 12/31/16 01/01/17 01/02/17 01/03/17 23:59 23:59 23:59 23:59 Intake Total 100 775 50 Output Total 50 2850 350 Balance 50 -1195 -300 Weight 160 lb 178 lb 9.6 oz 178 lb 9.6 oz Last Vital Signs Temp Pulse Resp BP Pulse Ox 97.5 F L 80 18 90/62 95 01/03/17 12:00 01/03/17 12:00 01/03/17 12:00 01/03/17 10:00 01/03/17 12:40 Active Medications Aspirin (Ecotrin -) 81 mg PO DAILY [facility] Last Admin: 01/03/17 09:35 Dose: 81 mg Clopidogrel Bisulfate (Plavix -) 75 mg PO DAILY [facility] Last Admin: 01/03/17 09:35 Dose: 75 mg Collagenase (Santyl -) 1 applic TP DAILY [facility] Last Admin: 01/03/17 09:36 Dose: 1 applic Divalproex Sodium (Depakote Sprinkle Caps -) 250 mg PO DAILY [facility] Last Admin: 01/03/17 09:36 Dose: 250 mg Heparin Sodium (Porcine) (Heparin -) 5,000 unit SQ TID [facility] Last Admin: 01/03/17 05:37 Dose: 5,000 unit Norepinephrine Bitartrate 4, 000 mcg/ Dextrose/Sodium Chloride 500 mls @ 37.5 mls/hr IV TITR MAAME; 5 MCG/MIN PRN Reason: Protocol Last Titration: 01/03/17 05:34 Dose: 0 mcg/min Vancomycin HCl (Vancomycin (Pre-Docked)) 250 mls @ 200 mls/hr IVPB DAILY@1800 [facility] Last Admin: 01/02/17 17:20 Dose: 200 mls/hr Piperacillin Sod/Tazobactam Sod (Zosyn 3.375gm Ivpb (Pre-Docked)) 50 mls @ 100 mls/hr IVPB Q8H-IV [facility]AME PRN Reason: Protocol Last Admin: 01/03/17 04:21 Dose: 100 mls/hr Insulin Aspart (Novolog Vial Sliding Scale -) 1 vial SQ Q6HPO [facility] PRN Reason: Protocol Last Admin: 01/03/17 11:47 Dose: Not Given Levetiracetam (Keppra Injection -) 500 mg IVPB BID [facility] Last Admin: 01/02/17 22:34 Dose: 500 mg Constitutional: Yes: Awake and responsive, confused Eyes: Yes: WNL (surgical L pupil), Other HENT: Yes: WNL, Atraumatic, Normocephalic Neck: Yes: WNL, Supple, Trachea Midline Cardiovascular: Yes: WNL, Regular Rate and Rhythm Respiratory: Yes: Scattered bilateral Rhonchi Gastrointestinal: Yes: WNL, Normal Bowel Sounds, Soft ...Rectal Exam: Yes: Deferred Renal/: Yes: WNL Breast(s): Yes: WNL Musculoskeletal: Yes: WNL Extremities: Yes: Amputation Edema: No Peripheral Pulses WNL: Yes Neurological: Yes: Poorly responsive Labs: Laboratory Results - last 24 hr 01/02/17 01/02/17 01/02/17 01:00 13:09 13:40 WBC RBC Hgb Hct MCV MCH MCHC RDW Plt Count MPV INR PTT (Actin FS) Puncture Site Right radial ABG pH 7.31 L ABG pCO2 at Pt Temp 70.1 H* D ABG pO2 at Pt Temp 97.8 ABG HCO3 34.3 H ABG O2 Sat (Measured) 97.7 ABG O2 Content 11.8 L ABG Base Excess 7.2 H [place] Test Positive O2 Delivery Device N/c Oxygen Flow Rate 4 PEEP 0.0 Sodium Potassium Chloride Carbon Dioxide Anion Gap BUN Creatinine Creat Clearance w eGFR POC Glucometer 219.51175 Random Glucose Calcium Phosphorus Magnesium Total Bilirubin AST ALT Alkaline Phosphatase LD Total Total Protein Albumin Urine Color Yellow Urine Appearance Clear Urine pH 5.0 Ur Specific [place] 1.015 Urine Protein 1+ H Urine Glucose (UA) Negative Urine Ketones Negative Urine Blood Negative Urine Nitrite Negative Urine Bilirubin Negative Urine Urobilinogen Negative Ur Leukocyte Esterase Negative Urine RBC 1 Urine WBC 1 Hyaline Casts 1 Pleural Fluid Source Pleural Color Pleural Appearance Pleural WBC Pleural RBC Pleural Neutrophils Pleural Lymphocytes Pleural Monocytes Pleural Macrophages Pleural Mesothelial Pleural Total Protein Pleural LDH Pleural Glucose Pleural Triglycerides Tobramycin Trough Vancomycin Pre-Dose 01/02/17 01/02/17 01/02/17 16:00 16:00 16:00 WBC RBC Hgb Hct MCV MCH MCHC RDW Plt Count MPV INR PTT (Actin FS) Puncture Site ABG pH ABG pCO2 at Pt Temp ABG pO2 at Pt Temp ABG HCO3 ABG O2 Sat (Measured) ABG O2 Content ABG Base Excess [place] Test O2 Delivery Device Oxygen Flow Rate PEEP Sodium Potassium Chloride Carbon Dioxide Anion Gap BUN Creatinine Creat Clearance w eGFR POC Glucometer Random Glucose Calcium Phosphorus Magnesium Total Bilirubin AST ALT Alkaline Phosphatase LD Total Total Protein Albumin Urine Color Urine Appearance Urine pH Ur Specific [place] Urine Protein Urine Glucose (UA) Urine Ketones Urine Blood Urine Nitrite Urine Bilirubin Urine Urobilinogen Ur Leukocyte Esterase Urine RBC Urine WBC Hyaline Casts Pleural Fluid Source Pleural Pleural Color Yellow Pleural Appearance Clear Pleural WBC 172 Pleural RBC 1276 Pleural Neutrophils 31 Pleural Lymphocytes 13 Pleural Monocytes 16 Pleural Macrophages 7 Pleural Mesothelial 33 Pleural Total Protein Pleural LDH 67.213 Pleural Glucose 174.547 Pleural Triglycerides Tobramycin Trough Vancomycin Pre-Dose 01/02/17 01/02/17 01/02/17 16:00 16:00 17:29 WBC RBC Hgb Hct MCV MCH MCHC RDW Plt Count MPV INR PTT (Actin FS) Puncture Site ABG pH ABG pCO2 at Pt Temp ABG pO2 at Pt Temp ABG HCO3 ABG O2 Sat (Measured) ABG O2 Content ABG Base Excess [place] Test O2 Delivery Device Oxygen Flow Rate PEEP Sodium Potassium Chloride Carbon Dioxide Anion Gap BUN Creatinine Creat Clearance w eGFR POC Glucometer 165.84606 Random Glucose Calcium Phosphorus Magnesium Total Bilirubin AST ALT Alkaline Phosphatase LD Total Total Protein Albumin Urine Color Urine Appearance Urine pH Ur Specific [place] Urine Protein Urine Glucose (UA) Urine Ketones Urine Blood Urine Nitrite Urine Bilirubin Urine Urobilinogen Ur Leukocyte Esterase Urine RBC Urine WBC Hyaline Casts Pleural Fluid Source Pleural Color Pleural Appearance Pleural WBC Pleural RBC Pleural Neutrophils Pleural Lymphocytes Pleural Monocytes Pleural Macrophages Pleural Mesothelial Pleural Total Protein 1.852 Pleural LDH Pleural Glucose Pleural Triglycerides 14 Tobramycin Trough Vancomycin Pre-Dose 01/02/17 01/03/17 01/03/17 19:20 05:10 05:10 WBC RBC Hgb Hct MCV MCH MCHC RDW Plt Count MPV INR PTT (Actin FS) Puncture Site ABG pH ABG pCO2 at Pt Temp ABG pO2 at Pt Temp ABG HCO3 ABG O2 Sat (Measured) ABG O2 Content ABG Base Excess [place] Test O2 Delivery Device Oxygen Flow Rate PEEP Sodium Potassium Chloride Carbon Dioxide Anion Gap BUN Creatinine Creat Clearance w eGFR POC Glucometer Random Glucose Calcium Phosphorus Magnesium Total Bilirubin AST ALT Alkaline Phosphatase LD Total 128 Total Protein Albumin Urine Color Urine Appearance Urine pH Ur Specific [place] Urine Protein Urine Glucose (UA) Urine Ketones Urine Blood Urine Nitrite Urine Bilirubin Urine Urobilinogen Ur Leukocyte Esterase Urine RBC Urine WBC Hyaline Casts Pleural Fluid Source Pleural Color Pleural Appearance Pleural WBC Pleural RBC Pleural Neutrophils Pleural Lymphocytes Pleural Monocytes Pleural Macrophages Pleural Mesothelial Pleural Total Protein Pleural LDH Pleural Glucose Pleural Triglycerides Tobramycin Trough 1.0 Vancomycin Pre-Dose 16.889 H* 01/03/17 01/03/17 01/03/17 05:10 05:10 05:10 WBC 4.5 D RBC 2.53 L Hgb 7.9 L Hct 24.8 L MCV 98.4 H MCH 31.5 MCHC 32.0 RDW 17.6 H Plt Count 123 L D MPV 9.5 INR 1.28 H PTT (Actin FS) 38.2 H Puncture Site ABG pH ABG pCO2 at Pt Temp ABG pO2 at Pt Temp ABG HCO3 ABG O2 Sat (Measured) ABG O2 Content ABG Base Excess [place] Test O2 Delivery Device Oxygen Flow Rate PEEP Sodium 141 Potassium 4.6 Chloride 98 Carbon Dioxide 38 H Anion Gap 5 L BUN 31 H Creatinine 1.6 H Creat Clearance w eGFR 43.87 POC Glucometer Random Glucose 91 D Calcium 8.3 L Phosphorus 3.4 D Magnesium 2.1 Total Bilirubin 0.8 AST 16 D ALT 13 D Alkaline Phosphatase 70 LD Total Total Protein 5.0 L Albumin 2.1 L Urine Color Urine Appearance Urine pH Ur Specific [place] Urine Protein Urine Glucose (UA) Urine Ketones Urine Blood Urine Nitrite Urine Bilirubin Urine Urobilinogen Ur Leukocyte Esterase Urine RBC Urine WBC Hyaline Casts Pleural Fluid Source Pleural Color Pleural Appearance Pleural WBC Pleural RBC Pleural Neutrophils Pleural Lymphocytes Pleural Monocytes Pleural Macrophages Pleural Mesothelial Pleural Total Protein Pleural LDH Pleural Glucose Pleural Triglycerides Tobramycin Trough Vancomycin Pre-Dose 01/03/17 01/03/17 05:34 11:43 WBC RBC Hgb Hct MCV MCH MCHC RDW Plt Count MPV INR PTT (Actin FS) Puncture Site ABG pH ABG pCO2 at Pt Temp ABG pO2 at Pt Temp ABG HCO3 ABG O2 Sat (Measured) ABG O2 Content ABG Base Excess [place] Test O2 Delivery Device Oxygen Flow Rate PEEP Sodium Potassium Chloride Carbon Dioxide Anion Gap BUN Creatinine Creat Clearance w eGFR POC Glucometer 148.23573 120.68245 Random Glucose Calcium Phosphorus Magnesium Total Bilirubin AST ALT Alkaline Phosphatase LD Total Total Protein Albumin Urine Color Urine Appearance Urine pH Ur Specific [place] Urine Protein Urine Glucose (UA) Urine Ketones Urine Blood Urine Nitrite Urine Bilirubin Urine Urobilinogen Ur Leukocyte Esterase Urine RBC Urine WBC Hyaline Casts Pleural Fluid Source Pleural Color Pleural Appearance Pleural WBC Pleural RBC Pleural Neutrophils Pleural Lymphocytes Pleural Monocytes Pleural Macrophages Pleural Mesothelial Pleural Total Protein Pleural LDH Pleural Glucose Pleural Triglycerides Tobramycin Trough Vancomycin Pre-Dose Problem List - Problems (1) Pneumonia Code(s): J18.9 - PNEUMONIA, UNSPECIFIED ORGANISM Qualifiers: Pneumonia type: due to unspecified organism Laterality: bilateral Lung location: lower lobe of lung Qualified Code(s): J18.9 - Pneumonia, unspecified organism (2) CHF exacerbation Code(s): I50.9 - HEART FAILURE, UNSPECIFIED Qualifiers: Congestive heart failure type: unspecified congestive heart failure type Qualified Code(s): I50.9 - Heart failure, unspecified (3) 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 complication Code(s): E11.29 - TYPE 2 DIABETES MELLITUS W OTH DIABETIC KIDNEY COMPLICATION (4) RUBY (acute kidney injury) Code(s): N17.9 - ACUTE KIDNEY FAILURE, UNSPECIFIED (5) Acquired absence of left foot Code(s): Z89.432 - ACQUIRED ABSENCE OF LEFT FOOT (6) Acquired absence of right foot Code(s): Z89.431 - ACQUIRED ABSENCE OF RIGHT FOOT (7) CAD (coronary artery disease) Code(s): I25.10 - ATHSCL HEART DISEASE OF LIME CORONARY ARTERY W/O ANG PCTRS (8) Cellulitis and abscess of foot Code(s): L03.119 - CELLULITIS OF UNSPECIFIED PART OF LIMB L02.619 - CUTANEOUS ABSCESS OF UNSPECIFIED FOOT (9) jail current use of insulin Code(s): Z79.4 - PENITENTIARY (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 OF INSULIN Assessment/Plan Septic Shock due to PNA Toxic Metabolic Encephalopathy suspected (?) Hypercapnia DM HTN COPD RUBY Bilateral PNA (?) aspiration Acute Respiratory Failure PLAN: ABX O2 as needed Aspiration precautions PO as tolerated BD TX Follow cultures Glycemic control VTE prophylaxis CVC replacement Dr Villatoro Critical Care Time/MDM Note Total Critical Care Time: 35 Critical Care Statement: The care of this patient involved high complexity decision making to prevent further life threatening deterioration of the patient 's condition and/or to evalute & treat vital organ system(s) failure or risk of failure.
--- NOTE | 2017-01-03 12:58 | PN ---
Progress Note, Physician History of Present Illness: patient seen and examined at bedside reuqired BiPAP overnight patient pulled central line overnight multiple failed attempts at IV access by multiple RNs and MDs s/p right IJ placed - Current Medication List Current Medications: Active Medications Aspirin (Ecotrin -) 81 mg PO DAILY [facility] Last Admin: 01/03/17 09:35 Dose: 81 mg Clopidogrel Bisulfate (Plavix -) 75 mg PO DAILY [facility] Last Admin: 01/03/17 09:35 Dose: 75 mg Collagenase (Santyl -) 1 applic TP DAILY [facility] Last Admin: 01/03/17 09:36 Dose: 1 applic Divalproex Sodium (Depakote Sprinkle Caps -) 250 mg PO DAILY [facility] Last Admin: 01/03/17 09:36 Dose: 250 mg Heparin Sodium (Porcine) (Heparin -) 5,000 unit SQ TID [facility] Last Admin: 01/03/17 05:37 Dose: 5,000 unit Norepinephrine Bitartrate 4, 000 mcg/ Dextrose/Sodium Chloride 500 mls @ 37.5 mls/hr IV TITR MAAME; 5 MCG/MIN PRN Reason: Protocol Last Titration: 01/03/17 05:34 Dose: 0 mcg/min Vancomycin HCl (Vancomycin (Pre-Docked)) 250 mls @ 200 mls/hr IVPB DAILY@1800 [facility] Last Admin: 01/02/17 17:20 Dose: 200 mls/hr Piperacillin Sod/Tazobactam Sod (Zosyn 3.375gm Ivpb (Pre-Docked)) 50 mls @ 100 mls/hr IVPB Q8H-IV [facility] PRN Reason: Protocol Last Admin: 01/03/17 04:21 Dose: 100 mls/hr Insulin Aspart (Novolog Vial Sliding Scale -) 1 vial SQ Q6HPO [facility] PRN Reason: Protocol Last Admin: 01/03/17 11:47 Dose: Not Given Levetiracetam (Keppra Xr -) 500 mg PO DAILY [facility] - Objective Vital Signs: Vital Signs Temperature 97.5 F L 01/03/17 12:00 Pulse Rate 80 01/03/17 12:00 Respiratory Rate 18 01/03/17 12:00 Blood Pressure 90/62 01/03/17 10:00 O2 Sat by Pulse Oximetry (%) 95 01/03/17 12:40 Constitutional: Yes: No Distress, Eyes: Yes: Conjunctiva Clear HENT: Yes: Atraumatic, Normocephalic Neck: Yes: Supple, Trachea Midline Cardiovascular: Yes: Regular Rate and Rhythm, JVD Respiratory: Yes: Other (scattered crackles bilaterally) Gastrointestinal: Yes: Soft. 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 LLE knee ulcer with granulation tissue and fibrinous exudate/ RLE TMA stump C/D/I RLE plantar ulcer with callous formation) Edema: No Neurological: Yes: tired appearing much improved and more awake Labs: CBC, BMP 01/03/17 05:10 01/03/17 05:10 INR, PTT INR 1.28 (0.82-1.09) H 01/03/17 05:10 - ....Imaging Chest X-ray: Report Reviewed, Image Reviewed Assessment/Plan 61M with multiple medical co-morbidities presented to the ED with poor oral intake weakness failure to thrive and septic shock secondary to pneumonia. combined Septic and cardiogenic shock:secondary to bilateral multilobar healthcare acquired pneumonia. patient is from halfway and CHF exacerbation. patient with severely reduced EF on both right and left side with diastolic dysfunction CT scan of chest and CXR reviewed. ID consult appreciated replace central line as he has no IV access CVP monitoring off pressors f/u BCx- no growth to date UCx-no growth final strict I/Os Galindo for urine monitoring to assess resuscitation status will send C. Diff. spoke to cousin of patient who states he has had diarrhea for a while and has been on antibiotics-not sent CXR in AM Lethargy:significantly improved possible infectious encephalopathy Failure to thrive: encourage PO intake primary team to consider possible PEG when sepsis resolves start CLD Anemia: repeat H/H transfuse PRN normal transfusion parameters RUBY: likely secondary to hypovolemia, sepsis and hypoperfusion will trend creatinine-slightly improved IVF for hydration consider nephrology consult if worsens CAD s/p CABG: aspirin plavix hold statin until able to tolerate PO cardiology consult appreciated acute of chronic exacerbation of 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 CHF: cardiology evaluation appreciated hold coreg as patient is in septic shock hold lasix as patient is in septic shock monitor CVP frequently as not to fluid overload patient monitor fluid status Strict I/Os daily weight PVD: restart statin when taking PO continue plavix continue aspirin vascular consult appreciated continue santyl COPD: not in active exacerbation nebulizers if needed h/o seizures: continue depakote continue keppra DM: patient is NPO BGM Q6h ISS Q6h hold long acting insulin for now until patient is taking PO Anxiety: Currently not an issue FEN: off IVF hyperkalemia:resolved advance to CLD PPx: HSQ/SCDs no GI PPx at this time- will start if has a prolonged ICU stay PT consult when able to participate
[2017-01-03] MEDS: levETIRAcetam 500 MG/5 ML INJECTION VIAL IVPB SCH (12:59)
[2017-01-03] MEDS: NOREPINEPHRINE BITARTRATE IV SCH (13:00)
[2017-01-03] MEDS: DEXTROSE 5% IV SCH (13:00)
[2017-01-03] MEDS: NORMAL SALINE IV SCH (13:00)
[2017-01-03] MEDS ORDERED: SODIUM CHLORIDE 500 ML IV STA (14:10)
[2017-01-03] MEDS: SODIUM CHLORIDE 1,000 ML IV SCH (14:14)
--- NOTE | 2017-01-03 15:32 | PN ---
Progress Note, Physician History of Present Illness: More awake and alert C/O chills No c/o chest pain/ dyspnea No fever WBC 4.5 Cultures prelim no growth S/P chest catheter insertion- transudative fluid - Current Medication List Current Medications: Active Medications Aspirin (Ecotrin -) 81 mg PO DAILY [facility] Last Admin: 01/03/17 09:35 Dose: 81 mg Clopidogrel Bisulfate (Plavix -) 75 mg PO DAILY [facility] Last Admin: 01/03/17 09:35 Dose: 75 mg Collagenase (Santyl -) 1 applic TP DAILY [facility] Last Admin: 01/03/17 09:36 Dose: 1 applic Divalproex Sodium (Depakote Sprinkle Caps -) 250 mg PO DAILY [facility] Last Admin: 01/03/17 09:36 Dose: 250 mg Heparin Sodium (Porcine) (Heparin -) 5,000 unit SQ TID [facility] Last Admin: 01/03/17 13:02 Dose: 5,000 unit Norepinephrine Bitartrate 4, 000 mcg/ Dextrose/Sodium Chloride 500 mls @ 37.5 mls/hr IV TITR MAAME; 5 MCG/MIN PRN Reason: Protocol Last Admin: 01/03/17 13:00 Dose: Not Given Vancomycin HCl (Vancomycin (Pre-Docked)) 250 mls @ 200 mls/hr IVPB DAILY@1800 [facility] Last Admin: 01/02/17 17:20 Dose: 200 mls/hr Piperacillin Sod/Tazobactam Sod (Zosyn 3.375gm Ivpb (Pre-Docked)) 50 mls @ 100 mls/hr IVPB Q8H-IV [facility] PRN Reason: Protocol Last Admin: 01/03/17 12:59 Dose: 100 mls/hr Sodium Chloride (Normal Saline -) 1,000 mls @ 83 mls/hr IV ASDIR [facility] Last Admin: 01/03/17 14:14 Dose: 83 mls/hr Insulin Aspart (Novolog Vial Sliding Scale -) 1 vial SQ Q6HPO [facility] PRN Reason: Protocol Last Admin: 01/03/17 11:47 Dose: Not Given Levetiracetam (Keppra Xr -) 500 mg PO DAILY [facility] - Objective Vital Signs: Vital Signs Temperature 97.5 F L 01/03/17 14:00 Pulse Rate 84 01/03/17 15:20 Respiratory Rate 18 01/03/17 15:20 Blood Pressure 84/47 01/03/17 15:20 O2 Sat by Pulse Oximetry (%) 95 01/03/17 12:40 Constitutional: Yes: No Distress Eyes: Yes: Conjunctiva Clear Cardiovascular: Yes: Regular Rate and Rhythm, S1, S2 Respiratory: Yes: Diminished Gastrointestinal: Yes: Normal Bowel Sounds, Soft. No: Tenderness Extremities: Yes: Other (L BKA R TMA) Labs: CBC, BMP 01/03/17 05:10 01/03/17 05:10 INR, PTT INR 1.28 (0.82-1.09) H 01/03/17 05:10 Assessment/Plan Bilateral pneumonia Sepsis secondary to pneumonia Pleural effusion s/p catheter insertion Thrombocytopenic Exacerbation COPD CKD Toxic-metabolic encephalopathy- improved Await c/s Continue zosyn/ vancomycin empirically
[2017-01-03] MEDS: VANCOMYCIN 1 GRAM (PRE-DOCKED) 250 ML IVPB SCH (17:52)
[2017-01-03 17:53] LABS: BASOPHIL 0.5 % (0-2.0); EOSINOPHIL 3.1 % (0-4.5); MCH 31.7 pg (25.7-33.7); MCHC 32.3 g/dl (32.0-35.9); MEAN CELL VOLUME 98.3 fl (80-96); MEAN PLT VOLUME 9.5 fl (7.5-11.1); NEUTROPHILS 72.8 % (42.8-82.8); PLATELET COUNT 100 K/MM3 (134-434); RDW 17.1 % (11.9-15.9); WHITE BLOOD COUNT 3.9 K/mm3 (4.0-10.0)
[2017-01-03] MEDS ORDERED: IRON SUCROSE INJECTION 200 MG in SODIUM CHLORIDE 100 ML IVPB ONE (19:30)
--- NOTE | 2017-01-03 19:41 | PN ---
Progress Note, Physician Chief Complaint: FTT,Sepsis, Anemia - Current Medication List Current Medications: Active Medications Aspirin (Ecotrin -) 81 mg PO DAILY [facility] Last Admin: 01/03/17 09:35 Dose: 81 mg Clopidogrel Bisulfate (Plavix -) 75 mg PO DAILY [facility] Last Admin: 01/03/17 09:35 Dose: 75 mg Collagenase (Santyl -) 1 applic TP DAILY [facility] Last Admin: 01/03/17 09:36 Dose: 1 applic Divalproex Sodium (Depakote Sprinkle Caps -) 250 mg PO DAILY [facility] Last Admin: 01/03/17 09:36 Dose: 250 mg Heparin Sodium (Porcine) (Heparin -) 5,000 unit SQ TID [facility] Last Admin: 01/03/17 13:02 Dose: 5,000 unit Norepinephrine Bitartrate 4, 000 mcg/ Dextrose/Sodium Chloride 500 mls @ 37.5 mls/hr IV TITR MAAME; 5 MCG/MIN PRN Reason: Protocol Last Admin: 01/03/17 13:00 Dose: Not Given Vancomycin HCl (Vancomycin (Pre-Docked)) 250 mls @ 200 mls/hr IVPB DAILY@1800 [facility] Last Admin: 01/03/17 17:52 Dose: 200 mls/hr Piperacillin Sod/Tazobactam Sod (Zosyn 3.375gm Ivpb (Pre-Docked)) 50 mls @ 100 mls/hr IVPB Q8H-IV [facility] PRN Reason: Protocol Last Admin: 01/03/17 17:25 Dose: 100 mls/hr Sodium Chloride (Normal Saline -) 1,000 mls @ 83 mls/hr IV ASDIR [facility] Last Admin: 01/03/17 14:14 Dose: 83 mls/hr Pantoprazole Sodium 40 mg/ (Sodium Chloride) 100 mls @ 200 mls/hr IVPB DAILY [facility] Iron Sucrose 200 mg/ Sodium (Chloride) 250 mls @ 250 mls/hr IVPB ONCE ONE Stop: 01/03/17 20:29 Insulin Aspart (Novolog Vial Sliding Scale -) 1 vial SQ Q6HPO [facility] PRN Reason: Protocol Last Admin: 01/03/17 17:52 Dose: Not Given Levetiracetam (Keppra Xr -) 500 mg PO DAILY [facility] - Objective Vital Signs: Vital Signs Temperature 97.5 F L 01/03/17 18:00 Pulse Rate 87 01/03/17 18:00 Respiratory Rate 18 01/03/17 18:00 Blood Pressure 93/61 01/03/17 18:00 O2 Sat by Pulse Oximetry (%) 95 01/03/17 16:08 Constitutional: Yes: Cachectic Cardiovascular: Yes: Regular Rate and Rhythm Respiratory: Yes: Regular Gastrointestinal: Yes: Hypoactive Bowel Sounds Labs: CBC, BMP 01/03/17 16:30 01/03/17 05:10 INR, PTT INR 1.28 (0.82-1.09) H 01/03/17 05:10 Problem List - Problems (1) CHF exacerbation Assessment/Plan: last BNP elevated Pulmonary and cardiology consult Code(s): I50.9 - HEART FAILURE, UNSPECIFIED Qualifiers: Congestive heart failure type: unspecified congestive heart failure type Qualified Code(s): I50.9 - Heart failure, unspecified (2) Pneumonia of both lower lobes Assessment/Plan: IV abx Code(s): J18.9 - PNEUMONIA, UNSPECIFIED ORGANISM Qualifiers: Pneumonia type: aspiration pneumonia Aspiration pneumonia type: unspecified Qualified Code(s): J69.0 - Pneumonitis due to inhalation of food and vomit (3) 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 complication Code(s): E11.29 - TYPE 2 DIABETES MELLITUS W OTH DIABETIC KIDNEY COMPLICATION (4) Acute kidney failure Assessment/Plan: -secondary to sepsis, dehydration stable at this time continue to monitor Code(s): N17.9 - ACUTE KIDNEY FAILURE, UNSPECIFIED (5) Dehydration Assessment/Plan: -secondary to sepsis -gentle IVF Code(s): E86.0 - DEHYDRATION (6) Depressed Code(s): F32.9 - MAJOR DEPRESSIVE DISORDER, SINGLE EPISODE, UNSPECIFIED Qualifiers: Depression Type: major depressive disorder Major depression recurrence : single episode Active/Remission status: currently active Major depression episode severity: severe Psychotic features: without psychotic features Qualified Code(s): F32.2 - Major depressive disorder, single episode, severe without psychotic features (7) Anemia Assessment/Plan: -received 1 unit PRBC -H/H improved -continue to monitor labs -iron profle -venofer -stool OB -vit B12 Code(s): D64.9 - ANEMIA, UNSPECIFIED (8) Failure to thrive Assessment/Plan: -secondary to depression -encourage PO intake Code(s): [id number] - Assessment/Plan ID, Pulmonary and cardiology consult -IV abx -IV hydration -repeat labs in AM -stool OB -Iron profile, B12 -Venofer -encourage OP intake -neb tx -PPI has hx of GI bleed and is anemic
--- NOTE | 2017-01-03 22:44 | PN ---
Progress Note (short form) - Note Progress Note: Repeat CBC reviewed, Hb- 7gm/dl. No signs of active bleeding. Could be due to dilution. Will transfuse one unit of PRBC, repeat CBC at 2am. Risk of fluid overload hence if second transfusion is required, may require lasix.
[2017-01-03] MEDS: ALBUTEROL SO4 2.5/IPRATROPIUM 0.5 INH SOL 3 ML VIAL.NEB. NEB SCH (23:00)
[2017-01-04] MEDS: INSULIN SLIDING SCALE (NOVOLOG) 1 VIAL SQ SCH ×3 (00:38→13:08)
[2017-01-04] MEDS: PIPERACILLIN/TAZOB 3.375 GM 50 ML IVPB SCH ×3 (01:33→17:27)
[2017-01-04 03:42] LABS: MCH 30.9 pg (25.7-33.7); MCHC 32.7 g/dl (32.0-35.9); MEAN CELL VOLUME 94.6 fl (80-96); MEAN PLT VOLUME 9.7 fl (7.5-11.1); PLATELET COUNT 109 K/MM3 (134-434); RDW 19.3 % (11.9-15.9)
[2017-01-04] MEDS: ALBUTEROL SO4 2.5/IPRATROPIUM 0.5 INH SOL 3 ML VIAL.NEB. NEB SCH ×3 (06:00→22:15)
[2017-01-04] MEDS: HEPARIN NA (PORCINE) 5,000 UNITS/ML 1ML VIAL SQ SCH ×3 (06:04→22:21)
[2017-01-04 06:20] LABS: BASOPHIL 0.4 % (0-2.0); EOSINOPHIL 3.8 % (0-4.5); MCH 31.7 pg (25.7-33.7); MCHC 33.7 g/dl (32.0-35.9); MEAN CELL VOLUME 94.1 fl (80-96); MEAN PLT VOLUME 9.4 fl (7.5-11.1); NEUTROPHILS 75.1 % (42.8-82.8); PLATELET COUNT 118 K/MM3 (134-434); WHITE BLOOD COUNT 5.1 K/mm3 (4.0-10.0)
[2017-01-04 06:31] LABS: INR 1.3 (0.82-1.09); PROTHROMBIN TIME (PATIENT) 14.4 SEC (9.98-11.88)
[2017-01-04 06:33] LABS: ACTIVATED PTT 45.7 SECONDS (26.9-34.4)
[2017-01-04 06:47] LABS: ALBUMIN 1.9 g/dl (3.4-5.0); ANION GAP 5 (8-16); CALCIUM 7.9 mg/dL (8.5-10.1); CO2 37 mmol/L (21-32); CREATININE 1.4 mg/dL (0.7-1.3); GLUCOSE,RANDOM 90 mg/dL (74-106); MAGNESIUM 2.2 mg/dL (1.8-2.4); SGOT/AST 15 U/L (15-37); SGPT/ALT 10 U/L (12-78); TOT PROT 4.8 g/dl (6.4-8.2)
[2017-01-04 06:48] LABS: ALK PHOS 59 U/L (45-117); FERRITIN 326.842 ng/ml (16.4-293.9)
--- NOTE | 2017-01-04 07:57 | PN ---
Progress Note (short form) - Note Progress Note: PULM/CCM Pt seen and examined in ICU 24HR: -1 prbc overnight with appropriate response - still significant Chest tube output/750, remains on suction, no air leak Vital Signs Temp 98.5 F 01/04/17 06:00 Pulse 82 01/04/17 06:00 Resp 13 01/04/17 06:00 BP 93/55 01/04/17 06:00 Pulse Ox 95 01/03/17 16:08 Intake & Output 01/03/17 01/03/17 01/04/17 11:59 23:59 11:59 Intake Total 50 2685 996 Output Total 350 1024 1400 Balance -300 1661 -404 Weight 81.012 kg 80.739 kg Intake: IV 665 996 Normal Saline - 500 ml @ 500 500 mls/hr IV ASDIR STA Rx#:[id number] Normal Saline - 1,000 ml 165 996 @ 83 mls/hr IV ASDIR MAAME Rx#:[id number] IVPB 50 550 Oral 1120 Packed Cells 350 Output: Chest Tube Drainage 724 750 Right Lateral Chest 724 750 Urine 350 300 650 Galindo 350 300 650 Other: Voiding Method Indwelling Catheter Indwelling Catheter Bowel Movement Yes Yes # Bowel Movements 1 1 Weight Measurement Method Built in [facility] Current Medications Albuterol/Ipratropium (Duoneb -) 1 amp NEB TIDR [facility] Last Admin: 01/04/17 06:00 Dose: 1 amp Aspirin (Ecotrin -) 81 mg PO DAILY [facility] Last Admin: 01/03/17 09:35 Dose: 81 mg Clopidogrel Bisulfate (Plavix -) 75 mg PO DAILY [facility] Last Admin: 01/03/17 09:35 Dose: 75 mg Collagenase (Santyl -) 1 applic TP DAILY [facility] Last Admin: 01/03/17 09:36 Dose: 1 applic Divalproex Sodium (Depakote Sprinkle Caps -) 250 mg PO DAILY [facility] Last Admin: 01/03/17 09:36 Dose: 250 mg Heparin Sodium (Porcine) (Heparin -) 5,000 unit SQ TID [facility] Last Admin: 01/04/17 06:04 Dose: 5,000 unit Norepinephrine Bitartrate 4, 000 mcg/ Dextrose/Sodium Chloride 500 mls @ 37.5 mls/hr IV TITR [facility]; 5 MCG/MIN PRN Reason: Protocol Last Admin: 01/03/17 13:00 Dose: Not Given Vancomycin HCl (Vancomycin (Pre-Docked)) 250 mls @ 200 mls/hr IVPB DAILY@1800 [facility] Last Admin: 01/03/17 17:52 Dose: 200 mls/hr Piperacillin Sod/Tazobactam Sod (Zosyn 3.375gm Ivpb (Pre-Docked)) 50 mls @ 100 mls/hr IVPB Q8H-IV [facility] PRN Reason: Protocol Last Admin: 01/04/17 01:33 Dose: 100 mls/hr Sodium Chloride (Normal Saline -) 1,000 mls @ 83 mls/hr IV ASDIR [facility] Last Admin: 01/03/17 14:14 Dose: 83 mls/hr Insulin Aspart (Novolog Vial Sliding Scale -) 1 vial SQ Q6HPO [facility] PRN Reason: Protocol Last Admin: 01/04/17 06:04 Dose: Not Given Levetiracetam (Keppra Xr -) 500 mg PO DAILY [facility] Pantoprazole Sodium (Protonix 40mg Ivpb (Pre-Docked)) 40 mg IVPB DAILY [facility] Constitutional: Yes: Awake and responsive, confused Eyes: Yes: WNL (surgical L pupil), Other HENT: Yes: WNL, Atraumatic, Normocephalic Neck: Yes: WNL, Supple, Trachea Midline Cardiovascular: Yes: WNL, Regular Rate and Rhythm Respiratory: Yes: Scattered bilateral Rhonchi, improve resp status Gastrointestinal: Yes: WNL, Normal Bowel Sounds, Soft ...Rectal Exam: Yes: Deferred Renal/: Yes: WNL Breast(s): Yes: WNL Musculoskeletal: Yes: WNL Extremities: Yes: Amputation trace erythema Edema: No Peripheral Pulses WNL: Yes Neurological: Yes: awaken to voice. CBC, BMP 01/04/17 05:30 01/04/17 05:30 Assessment/Plan Septic Shock due to PNA Toxic Metabolic Encephalopathy suspected (?) Hypercapnia DM HTN COPD RUBY Bilateral PNA (?) aspiration Acute Respiratory Failure PLAN: ABX as per ID O2 as needed Aspiration precautions PO as tolerated cont AE BD TX Follow cultures Glycemic control VTE prophylaxis CVC for access, should be able to remove soon monitor in ICU, tele maybe friday Patricio Mendes [facility] [id number]
[2017-01-04] MEDS: CLOPIDOGREL BISULFATE 75 MG TABLET (FP) PO SCH ×2 (09:12→12:57)
[2017-01-04] MEDS: DIVALPROEX SODIUM 125 MG SPRINKLE CAPS (FP) PO SCH ×2 (09:12→12:58)
[2017-01-04] MEDS: ASPIRIN COATED 81 MG TABLET.EC PO SCH ×2 (09:13→12:57)
[2017-01-04] MEDS: levETIRAcetam XR 500 MG TAB PO SCH ×2 (09:13→12:55)
[2017-01-04] MEDS: COLLAGENASE CLOSTRIDIUM HIST. 30 GRAMS TUBE TP SCH (09:17)
[2017-01-04] MEDS: PANTOPRAZOLE SODIUM 40 MG/100 ML PRE-DOCKED IVPB SCH ×2 (09:18→12:58)
--- NOTE | 2017-01-04 09:34 | PN ---
Progress Note, Physician - Current Medication List Current Medications: Active Medications Albuterol/Ipratropium (Duoneb -) 1 amp NEB TIDR [facility] Last Admin: 01/04/17 06:00 Dose: 1 amp Aspirin (Ecotrin -) 81 mg PO DAILY [facility] Last Admin: 01/04/17 09:13 Dose: 81 mg Clopidogrel Bisulfate (Plavix -) 75 mg PO DAILY [facility] Last Admin: 01/04/17 09:12 Dose: 75 mg Collagenase (Santyl -) 1 applic TP DAILY [facility] Last Admin: 01/04/17 09:17 Dose: 1 applic Divalproex Sodium (Depakote Sprinkle Caps -) 250 mg PO DAILY [facility] Last Admin: 01/04/17 09:12 Dose: 250 mg Heparin Sodium (Porcine) (Heparin -) 5,000 unit SQ TID [facility] Last Admin: 01/04/17 06:04 Dose: 5,000 unit Norepinephrine Bitartrate 4, 000 mcg/ Dextrose/Sodium Chloride 500 mls @ 37.5 mls/hr IV TITR [facility]; 5 MCG/MIN PRN Reason: Protocol Last Admin: 01/03/17 13:00 Dose: Not Given Vancomycin HCl (Vancomycin (Pre-Docked)) 250 mls @ 200 mls/hr IVPB DAILY@1800 [facility] Last Admin: 01/03/17 17:52 Dose: 200 mls/hr Piperacillin Sod/Tazobactam Sod (Zosyn 3.375gm Ivpb (Pre-Docked)) 50 mls @ 100 mls/hr IVPB Q8H-IV [facility] PRN Reason: Protocol Last Admin: 01/04/17 09:12 Dose: 100 mls/hr Sodium Chloride (Normal Saline -) 1,000 mls @ 83 mls/hr IV ASDIR [facility] Last Admin: 01/03/17 14:14 Dose: 83 mls/hr Insulin Aspart (Novolog Vial Sliding Scale -) 1 vial SQ Q6HPO [facility] PRN Reason: Protocol Last Admin: 01/04/17 06:04 Dose: Not Given Levetiracetam (Keppra Xr -) 500 mg PO DAILY [facility] Last Admin: 01/04/17 09:13 Dose: 500 mg Pantoprazole Sodium (Protonix 40mg Ivpb (Pre-Docked)) 40 mg IVPB DAILY [facility] Last Admin: 01/04/17 09:18 Dose: 40 mg - Objective Vital Signs: Vital Signs Temperature 98.2 F 01/04/17 08:00 Pulse Rate 85 01/04/17 08:00 Respiratory Rate 12 01/04/17 09:00 Blood Pressure 92/53 01/04/17 08:00 O2 Sat by Pulse Oximetry (%) 95 01/03/17 16:08 Eyes: Yes: WNL, Conjunctiva Clear, EOM Intact HENT: Yes: WNL, Atraumatic, Normocephalic Neck: Yes: WNL, Supple, Trachea Midline Cardiovascular: Yes: WNL, Regular Rate and Rhythm Respiratory: Yes: WNL, Diminished Gastrointestinal: Yes: WNL, Normal Bowel Sounds Genitourinary: Yes: WNL Musculoskeletal: Yes: WNL Extremities: Yes: Amputation Edema: No Integumentary: Yes: WNL Neurological: Yes: WNL, Alert, Oriented ...Motor Strength: WNL Psychiatric: Yes: WNL Labs: CBC, BMP 01/04/17 05:30 01/04/17 05:30 INR, PTT INR 1.30 (0.82-1.09) H 01/04/17 05:30 Assessment/Plan 61 year old man h/o COPD, PAD s/o amputations, PNA, DM, CKD, CAD s/p TX, ischemic CM, Chronic systolic CHF admitted with ams, lethargy, dec appettite, presumed sepsis. s/p ct placement Hypotension-presumed sepsis and intravascular depletion -pressors as per ICU -receiving Abx -hold lasix in setting of intravascular depletion CAD h/o TX, ischemic cardiomyopathy with chronic systolic CHF -currently intravascularly depleted, hold lasix -ASA to be resumed. cc time [address] Landers
[2017-01-04] MEDS ORDERED: PANTOPRAZOLE SODIUM 40 MG in SODIUM CHLORIDE 100 ML IVPB SCH (10:00)
--- NOTE | 2017-01-04 11:10 | PN ---
Progress Note, Physician History of Present Illness: Awake but lethargic No complaints Refusing meds No fever/ chills C difficile + - Current Medication List Current Medications: Active Medications Albuterol/Ipratropium (Duoneb -) 1 amp NEB TIDR [facility] Last Admin: 01/04/17 06:00 Dose: 1 amp Aspirin (Ecotrin -) 81 mg PO DAILY [facility] Last Admin: 01/04/17 09:13 Dose: 81 mg Clopidogrel Bisulfate (Plavix -) 75 mg PO DAILY [facility] Last Admin: 01/04/17 09:12 Dose: 75 mg Collagenase (Santyl -) 1 applic TP DAILY [facility] Last Admin: 01/04/17 09:17 Dose: 1 applic Divalproex Sodium (Depakote Sprinkle Caps -) 250 mg PO DAILY [facility] Last Admin: 01/04/17 09:12 Dose: 250 mg Heparin Sodium (Porcine) (Heparin -) 5,000 unit SQ TID [facility] Last Admin: 01/04/17 06:04 Dose: 5,000 unit Norepinephrine Bitartrate 4, 000 mcg/ Dextrose/Sodium Chloride 500 mls @ 37.5 mls/hr IV TITR [facility]; 5 MCG/MIN PRN Reason: Protocol Last Admin: 01/03/17 13:00 Dose: Not Given Vancomycin HCl (Vancomycin (Pre-Docked)) 250 mls @ 200 mls/hr IVPB DAILY@1800 [facility] Last Admin: 01/03/17 17:52 Dose: 200 mls/hr Piperacillin Sod/Tazobactam Sod (Zosyn 3.375gm Ivpb (Pre-Docked)) 50 mls @ 100 mls/hr IVPB Q8H-IV [facility] PRN Reason: Protocol Last Admin: 01/04/17 09:12 Dose: 100 mls/hr Sodium Chloride (Normal Saline -) 1,000 mls @ 83 mls/hr IV ASDIR [facility] Last Admin: 01/03/17 14:14 Dose: 83 mls/hr Insulin Aspart (Novolog Vial Sliding Scale -) 1 vial SQ Q6HPO [facility] PRN Reason: Protocol Last Admin: 01/04/17 06:04 Dose: Not Given Levetiracetam (Keppra Xr -) 500 mg PO DAILY [facility] Last Admin: 01/04/17 09:13 Dose: 500 mg Pantoprazole Sodium (Protonix 40mg Ivpb (Pre-Docked)) 40 mg IVPB DAILY [facility] Last Admin: 01/04/17 09:18 Dose: 40 mg - Objective Vital Signs: Vital Signs Temperature 98.2 F 01/04/17 08:00 Pulse Rate 85 01/04/17 08:00 Respiratory Rate 12 01/04/17 09:00 Blood Pressure 92/53 01/04/17 08:00 O2 Sat by Pulse Oximetry (%) 95 01/03/17 16:08 Constitutional: Yes: No Distress Eyes: Yes: Conjunctiva Clear Cardiovascular: Yes: Regular Rate and Rhythm, S1, S2 Respiratory: Yes: Diminished Gastrointestinal: Yes: Normal Bowel Sounds, Soft. No: Tenderness Extremities: Yes: Other (S/P BKA, TMA) Labs: CBC, BMP 01/04/17 05:30 01/04/17 05:30 INR, PTT INR 1.30 (0.82-1.09) H 01/04/17 05:30 Assessment/Plan Bilateral pneumonia Sepsis secondary to pneumonia Pleural effusion s/p catheter insertion Thrombocytopenia Exacerbation COPD CKD Toxic-metabolic encephalopathy- improved C difficile Continue zosyn. D/C vancomycin Flagyl po
[2017-01-04] MEDS ORDERED: HEMOQUE TEST 1 EACH EACH ONE ×3 (12:31→21:58)
[2017-01-04] MEDS ORDERED: PT OWN MED DRAWER 7, Y5N ONE (12:32)
[2017-01-04] MEDS: metroNIDAZOLE 250 MG TABLET PO SCH ×2 (13:11→22:23)
[2017-01-04] MEDS: SODIUM CHLORIDE 1,000 ML IV SCH (14:00)
--- NOTE | 2017-01-04 16:53 | PN ---
Progress Note, Physician Chief Complaint: FTT, sepsis, anemia History of Present Illness: alert, NAD, responds to few questions, irritable, denies pain, noted to have been refusing medication early today. - Current Medication List Current Medications: Active Medications Albuterol/Ipratropium (Duoneb -) 1 amp NEB TIDR [facility] Last Admin: 01/04/17 14:20 Dose: Not Given Aspirin (Ecotrin -) 81 mg PO DAILY [facility] Last Admin: 01/04/17 12:57 Dose: Not Given Clopidogrel Bisulfate (Plavix -) 75 mg PO DAILY [facility] Last Admin: 01/04/17 12:57 Dose: Not Given Collagenase (Santyl -) 1 applic TP DAILY [facility] Last Admin: 01/04/17 09:17 Dose: 1 applic Divalproex Sodium (Depakote Sprinkle Caps -) 250 mg PO DAILY [facility] Last Admin: 01/04/17 12:58 Dose: Not Given Heparin Sodium (Porcine) (Heparin -) 5,000 unit SQ TID [facility] Last Admin: 01/04/17 13:10 Dose: Not Given Piperacillin Sod/Tazobactam Sod (Zosyn 3.375gm Ivpb (Pre-Docked)) 50 mls @ 100 mls/hr IVPB Q8H-IV [facility] PRN Reason: Protocol Last Admin: 01/04/17 09:12 Dose: 100 mls/hr Sodium Chloride (Normal Saline -) 1,000 mls @ 83 mls/hr IV ASDIR [facility] Last Admin: 01/03/17 14:14 Dose: 83 mls/hr Insulin Aspart (Novolog Vial Sliding Scale -) 1 vial SQ Q6HPO [facility] PRN Reason: Protocol Last Admin: 01/04/17 13:08 Dose: Not Given Levetiracetam (Keppra Xr -) 500 mg PO DAILY [facility] Last Admin: 01/04/17 12:55 Dose: Not Given Metronidazole (Flagyl -) 500 mg PO TID [facility] Last Admin: 01/04/17 13:11 Dose: Not Given Pantoprazole Sodium (Protonix 40mg Ivpb (Pre-Docked)) 40 mg IVPB DAILY [facility] Last Admin: 01/04/17 12:58 Dose: Not Given - Objective Vital Signs: Vital Signs Temperature 98.2 F 01/04/17 12:00 Pulse Rate 79 01/04/17 16:00 Respiratory Rate 18 01/04/17 16:00 Blood Pressure 99/63 01/04/17 16:00 O2 Sat by Pulse Oximetry (%) 98 01/04/17 14:20 Constitutional: Yes: No Distress Eyes: Yes: Conjunctiva Clear HENT: Yes: Normocephalic Neck: Yes: Supple Cardiovascular: Yes: Regular Rate and Rhythm Respiratory: Yes: Regular, Diminished Gastrointestinal: Yes: Normal Bowel Sounds, Soft Edema: No Peripheral Pulses WNL: Yes Neurological: Yes: Alert Labs: CBC, BMP 01/04/17 05:30 01/04/17 05:30 INR, PTT INR 1.30 (0.82-1.09) H 01/04/17 05:30 Problem List - Problems (1) Failure to thrive Code(s): BHL2284 - Qualifiers: Failure to thrive age range: in adult Qualified Code(s): R62.7 - Adult failure to thrive (2) Pneumonia of both lower lobes Code(s): J18.9 - PNEUMONIA, UNSPECIFIED ORGANISM Qualifiers: Pneumonia type: aspiration pneumonia Aspiration pneumonia type: unspecified Qualified Code(s): J69.0 - Pneumonitis due to inhalation of food and vomit (3) 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 complication Code(s): E11.29 - TYPE 2 DIABETES MELLITUS W OTH DIABETIC KIDNEY COMPLICATION (4) Acute on chronic systolic (congestive) heart failure Code(s): I50.23 - ACUTE ON CHRONIC SYSTOLIC (CONGESTIVE) HEART FAILURE (5) CAD (coronary artery disease) Code(s): I25.10 - ATHSCL HEART DISEASE OF [place] CORONARY ARTERY W/O ANG PCTRS (6) CKD (chronic kidney disease) Code(s): N18.9 - CHRONIC KIDNEY DISEASE, UNSPECIFIED Qualifiers: Chronic kidney disease stage: stage 3 (moderate) Qualified Code(s): N18.3 - Chronic kidney disease, stage 3 (moderate) (7) Dehydration Code(s): E86.0 - DEHYDRATION (8) Depressed Code(s): F32.9 - MAJOR DEPRESSIVE DISORDER, SINGLE EPISODE, UNSPECIFIED Qualifiers: Depression Type: major depressive disorder Major depression recurrence : single episode Active/Remission status: currently active Major depression episode severity: severe Psychotic features: without psychotic features Qualified Code(s): F32.2 - Major depressive disorder, single episode, severe without psychotic features (9) Pneumonia Code(s): J18.9 - PNEUMONIA, UNSPECIFIED ORGANISM Qualifiers: Pneumonia type: aspiration pneumonia Laterality: bilateral Lung location: lower lobe of lung (10) CHF (congestive heart failure) Code(s): I50.9 - HEART FAILURE, UNSPECIFIED Qualifiers: (11) Diabetes Code(s): E11.9 - TYPE 2 DIABETES MELLITUS WITHOUT COMPLICATIONS (12) Diabetes mellitus type 2 in nonobese Code(s): E11.9 - TYPE 2 DIABETES MELLITUS WITHOUT COMPLICATIONS (13) Hyperlipemia Code(s): E78.5 - HYPERLIPIDEMIA, UNSPECIFIED Assessment/Plan -continue Metronidazole PO for c. diff -continue IV antibiotics for Sepsis and Pneumonia -monitor chest tube -WBC trending down, afebrile, blood culture negative -encourage patient to eat -family aware of patient refusing medications today -repeat labs in am
[2017-01-05] MEDS: PIPERACILLIN/TAZOB 3.375 GM 50 ML IVPB SCH ×3 (02:46→17:17)
[2017-01-05] MEDS: ALBUTEROL SO4 2.5/IPRATROPIUM 0.5 INH SOL 3 ML VIAL.NEB. NEB SCH ×3 (06:00→23:16)
[2017-01-05] MEDS: metroNIDAZOLE 250 MG TABLET PO SCH ×3 (06:22→21:29)
[2017-01-05] MEDS: HEPARIN NA (PORCINE) 5,000 UNITS/ML 1ML VIAL SQ SCH ×3 (06:23→21:29)
[2017-01-05 06:33] LABS: MCH 31.6 pg (25.7-33.7); MCHC 33.3 g/dl (32.0-35.9); MEAN PLT VOLUME 9.1 fl (7.5-11.1); PLATELET COUNT 122 K/MM3 (134-434); RDW 18.9 % (11.9-15.9); WHITE BLOOD COUNT 4.8 K/mm3 (4.0-10.0)
[2017-01-05] MEDS: INSULIN SLIDING SCALE (NOVOLOG) 1 VIAL SQ SCH ×5 (06:33→23:05)
[2017-01-05] MEDS ORDERED: HEMOQUE TEST 1 EACH EACH ONE (06:37)
[2017-01-05 06:41] LABS: SERUM IRON 154 ug/dL (38-169); TOTAL IRON BINDING CAPACITY 225 ug/dL (250-450); UIBC 71 ug/dL (111-343)
--- NOTE | 2017-01-05 06:41 | PN ---
Progress Note (short form) - Note Progress Note: PULMONARY/CRITICAL CARE FOLLOW UP: Progress Note (short form) - Note Progress Note: PULM/CCM Pt seen and examined in ICU 24HOUR EVENTS: -Remained stable overnight -He's despondent, refusing medications and refusing a physical exam -Significant Chest tube output in last 24hrs ~1400 Current Medications Albuterol/Ipratropium (Duoneb -) 1 amp NEB TIDR [facility] Last Admin: 01/05/17 06:00 Dose: 1 amp Aspirin (Ecotrin -) 81 mg PO DAILY [facility] Last Admin: 01/04/17 12:57 Dose: Not Given Clopidogrel Bisulfate (Plavix -) 75 mg PO DAILY [facility] Last Admin: 01/04/17 12:57 Dose: Not Given Collagenase (Santyl -) 1 applic TP DAILY [facility] Last Admin: 01/04/17 09:17 Dose: 1 applic Divalproex Sodium (Depakote Sprinkle Caps -) 250 mg PO DAILY [facility] Last Admin: 01/04/17 12:58 Dose: Not Given Heparin Sodium (Porcine) (Heparin -) 5,000 unit SQ TID [facility] Last Admin: 01/04/17 22:21 Dose: Not Given Piperacillin Sod/Tazobactam Sod (Zosyn 3.375gm Ivpb (Pre-Docked)) 50 mls @ 100 mls/hr IVPB Q8H-IV [facility] PRN Reason: Protocol Last Admin: 01/05/17 02:46 Dose: 100 mls/hr Sodium Chloride (Normal Saline -) 1,000 mls @ 83 mls/hr IV ASDIR [facility] Last Admin: 01/04/17 14:00 Dose: 83 mls/hr Insulin Aspart (Novolog Vial Sliding Scale -) 1 vial SQ Q6HPO [facility] PRN Reason: Protocol Last Admin: 01/05/17 00:00 Dose: Not Given Levetiracetam (Keppra Xr -) 500 mg PO DAILY [facility] Last Admin: 01/04/17 12:55 Dose: Not Given Metronidazole (Flagyl -) 500 mg PO TID [facility] Last Admin: 01/04/17 22:23 Dose: Not Given Pantoprazole Sodium (Protonix 40mg Ivpb (Pre-Docked)) 40 mg IVPB DAILY [facility] Last Admin: 01/04/17 12:58 Dose: Not Given Vital Signs Temp 97.5 F L 08/06/17 02:13 Pulse 79 01/05/17 02:13 Resp 80 H 01/05/17 02:13 BP 86/68 01/05/17 02:13 Pulse Ox 99 01/04/17 22:00 Intake & Output 01/04/17 01/04/17 01/05/17 06:59 18:59 06:59 Intake Total 2551 1196 Output Total 1024 1510 Balance 1527 -314 Weight 80.739 kg Intake: IV 1161 996 Normal Saline - 1,000 ml 1161 996 @ 83 mls/hr IV ASDIR MAAME Rx#:[id number] IVPB 400 200 Oral 640 Packed Cells 350 Output: Chest Tube Drainage 174 1410 Right Lateral Chest 174 1410 Urine 850 100 Galindo 850 100 Other: Voiding Method Indwelling Catheter Indwelling Catheter Indwelling Catheter Bowel Movement Yes Yes # Bowel Movements 1 1 Weight Measurement Method Built in [facility] EXAM: Neuro: Awake, alert, refusing to answer some questions Refused the remainder of physical exam AM Labs Pending Assessment/Plan Resolved septic shock due to PNA Resolved toxic Metabolic Encephalopathy DM HTN COPD RUBY PLAN: -ABX as per ID -O2 as needed -Aspiration precautions -PO as tolerated -cont AE -BD TX -Follow cultures -Glycemic control -VTE prophylaxis -CVC for access, should be able to remove soon Transfer to the floor Jesus Blake Pulm/Critical Care [employer] [id number]
[2017-01-05 07:08] LABS: ANION GAP 3 (8-16); CALCIUM 7.9 mg/dL (8.5-10.1); CO2 37 mmol/L (21-32); GLUCOSE,RANDOM 84 mg/dL (74-106)
[2017-01-05 07:09] LABS: CREATININE 1.4 mg/dL (0.7-1.3)
--- NOTE | 2017-01-05 07:17 | PN ---
Progress Note, Physician Chief Complaint: ID Zosyn po metrondidazole Alert NAD Offers no complaint - Current Medication List Current Medications: Active Medications Albuterol/Ipratropium (Duoneb -) 1 amp NEB TIDR [facility] Last Admin: 01/05/17 06:00 Dose: 1 amp Aspirin (Ecotrin -) 81 mg PO DAILY [facility] Last Admin: 01/04/17 12:57 Dose: Not Given Clopidogrel Bisulfate (Plavix -) 75 mg PO DAILY [facility] Last Admin: 01/04/17 12:57 Dose: Not Given Collagenase (Santyl -) 1 applic TP DAILY [facility] Last Admin: 01/04/17 09:17 Dose: 1 applic Divalproex Sodium (Depakote Sprinkle Caps -) 250 mg PO DAILY [facility] Last Admin: 01/04/17 12:58 Dose: Not Given Heparin Sodium (Porcine) (Heparin -) 5,000 unit SQ TID [facility] Last Admin: 01/05/17 06:23 Dose: 5,000 unit Piperacillin Sod/Tazobactam Sod (Zosyn 3.375gm Ivpb (Pre-Docked)) 50 mls @ 100 mls/hr IVPB Q8H-IV [facility] PRN Reason: Protocol Last Admin: 01/05/17 02:46 Dose: 100 mls/hr Sodium Chloride (Normal Saline -) 1,000 mls @ 83 mls/hr IV ASDIR [facility] Last Admin: 01/04/17 14:00 Dose: 83 mls/hr Insulin Aspart (Novolog Vial Sliding Scale -) 1 vial SQ Q6HPO [facility] PRN Reason: Protocol Last Admin: 01/05/17 06:33 Dose: Not Given Levetiracetam (Keppra Xr -) 500 mg PO DAILY [facility] Last Admin: 01/04/17 12:55 Dose: Not Given Metronidazole (Flagyl -) 500 mg PO TID [facility] Last Admin: 01/05/17 06:22 Dose: Not Given Pantoprazole Sodium (Protonix 40mg Ivpb (Pre-Docked)) 40 mg IVPB DAILY [facility] Last Admin: 01/04/17 12:58 Dose: Not Given - Objective Vital Signs: Vital Signs Temperature 98 F 01/05/17 06:00 Pulse Rate 80 01/05/17 06:00 Respiratory Rate 15 01/05/17 06:00 Blood Pressure 116/67 01/05/17 06:00 O2 Sat by Pulse Oximetry (%) 99 01/04/17 22:00 Constitutional: Yes: No Distress Neck: Yes: WNL, Supple Cardiovascular: Yes: Pulse Irregular, S1, S2. No: Murmur Respiratory: Yes: WNL, Regular, CTA Bilaterally, Rhonchi Gastrointestinal: Yes: WNL, Normal Bowel Sounds, Soft. No: Tenderness Extremities: Yes: Amputation Labs: CBC, BMP 01/05/17 06:00 INR, PTT INR 1.30 (0.82-1.09) H 01/04/17 05:30 Assessment/Plan Microbiology 01/02/17 16:00 Pleural Fluid Gram Stain - Final 01/02/17 16:00 Pleural Fluid MARIA D Preparation - Preliminary 01/02/17 16:00 Pleural Fluid Fungal Culture - Preliminary 01/02/17 16:00 Pleural Fluid Body Fluid Culture - Preliminary NO AEROBIC GROWTH, 24 HRS 01/02/17 16:00 Pleural Fluid AFB Smear Concentration - Preliminary 01/02/17 16:00 Pleural Fluid Mycobacterial Culture - Preliminary 01/01/17 19:55 Blood - Peripheral Venous Blood Culture - Preliminary NO GROWTH OBTAINED AFTER 72 HOURS, INCUBATION TO CONTINUE FOR 2 DAYS. 01/01/17 19:55 Blood - Peripheral Venous Blood Culture - Preliminary NO GROWTH OBTAINED AFTER 72 HOURS, INCUBATION TO CONTINUE FOR 2 DAYS. Laboratory Tests 01/02/17 01/05/17 01/05/17 16:00 06:00 06:00 WBC 4.8 Hgb 9.0 L Plt Count 122 L BUN 21 H Pleural Fluid Source Pleural Pleural Color Yellow Pleural WBC 172 Pleural RBC 1276 Assessment Working diagnosis is sepsis with pneumonia on Zosyn C diff Ag pos colonized Pleural effusion Diabetes Plan Continue current antimicrobials as ordered Binta DAVIDSON
--- NOTE | 2017-01-05 09:05 | PN ---
Progress Note, Physician - Current Medication List Current Medications: Active Medications Albuterol/Ipratropium (Duoneb -) 1 amp NEB TIDR [facility] Last Admin: 01/05/17 06:00 Dose: 1 amp Aspirin (Ecotrin -) 81 mg PO DAILY [facility] Last Admin: 01/04/17 12:57 Dose: Not Given Clopidogrel Bisulfate (Plavix -) 75 mg PO DAILY [facility] Last Admin: 01/04/17 12:57 Dose: Not Given Collagenase (Santyl -) 1 applic TP DAILY [facility] Last Admin: 01/04/17 09:17 Dose: 1 applic Divalproex Sodium (Depakote Sprinkle Caps -) 250 mg PO DAILY [facility] Last Admin: 01/04/17 12:58 Dose: Not Given Heparin Sodium (Porcine) (Heparin -) 5,000 unit SQ TID [facility] Last Admin: 01/05/17 06:23 Dose: 5,000 unit Piperacillin Sod/Tazobactam Sod (Zosyn 3.375gm Ivpb (Pre-Docked)) 50 mls @ 100 mls/hr IVPB Q8H-IV [facility] PRN Reason: Protocol Last Admin: 01/05/17 02:46 Dose: 100 mls/hr Sodium Chloride (Normal Saline -) 1,000 mls @ 83 mls/hr IV ASDIR [facility] Last Admin: 01/04/17 14:00 Dose: 83 mls/hr Insulin Aspart (Novolog Vial Sliding Scale -) 1 vial SQ Q6HPO [facility] PRN Reason: Protocol Last Admin: 01/05/17 06:33 Dose: Not Given Levetiracetam (Keppra Xr -) 500 mg PO DAILY [facility] Last Admin: 01/04/17 12:55 Dose: Not Given Metronidazole (Flagyl -) 500 mg PO TID [facility] Last Admin: 01/05/17 06:22 Dose: Not Given Pantoprazole Sodium (Protonix 40mg Ivpb (Pre-Docked)) 40 mg IVPB DAILY [facility] Last Admin: 01/04/17 12:58 Dose: Not Given - Objective Vital Signs: Vital Signs Temperature 98 F 01/05/17 06:00 Pulse Rate 78 01/05/17 08:00 Respiratory Rate 12 01/05/17 08:00 Blood Pressure 103/61 01/05/17 08:00 O2 Sat by Pulse Oximetry (%) 99 01/04/17 22:00 Eyes: Yes: WNL, Conjunctiva Clear, EOM Intact HENT: Yes: WNL, Atraumatic, Normocephalic Neck: Yes: WNL, Supple, Trachea Midline Cardiovascular: Yes: WNL, Regular Rate and Rhythm Respiratory: Yes: WNL, Regular, CTA Bilaterally Gastrointestinal: Yes: WNL, Normal Bowel Sounds Genitourinary: Yes: WNL Musculoskeletal: Yes: WNL Extremities: Yes: Amputation Edema: No Integumentary: Yes: WNL Neurological: Yes: WNL, Alert, Oriented ...Motor Strength: WNL Psychiatric: Yes: WNL Labs: CBC, BMP 01/05/17 06:00 01/05/17 06:00 INR, PTT INR 1.30 (0.82-1.09) H 01/04/17 05:30 Assessment/Plan 61 year old man h/o COPD, PAD s/o amputations, PNA, DM, CKD, CAD s/p NM, ischemic CM, Chronic systolic CHF admitted with ams, lethargy, dec appettite, presumed sepsis. s/p ct placement Hypotension-presumed sepsis and intravascular depletion most likely due to PNA -off pressors CT in place -receiving Abx -hold lasix in setting of intravascular depletion CAD h/o NM, ischemic cardiomyopathy with chronic systolic CHF -currently intravascularly depleted, hold lasix -ASA to be resumed. cc time [address] Landers
[2017-01-05] MEDS: CLOPIDOGREL BISULFATE 75 MG TABLET (FP) PO SCH (09:16)
[2017-01-05] MEDS: DIVALPROEX SODIUM 125 MG SPRINKLE CAPS (FP) PO SCH (09:16)
[2017-01-05] MEDS: ASPIRIN COATED 81 MG TABLET.EC PO SCH (09:16)
[2017-01-05] MEDS: levETIRAcetam XR 500 MG TAB PO SCH (09:16)
[2017-01-05] MEDS: PANTOPRAZOLE SODIUM 40 MG/100 ML PRE-DOCKED IVPB SCH (09:18)
[2017-01-05] MEDS: COLLAGENASE CLOSTRIDIUM HIST. 30 GRAMS TUBE TP SCH (09:43)
[2017-01-05] MEDS: SODIUM CHLORIDE 1,000 ML IV SCH (14:10)
--- NOTE | 2017-01-05 18:26 | PN ---
Progress Note, Physician Chief Complaint: FTT, sepsis (resolved), anemia History of Present Illness: alert, NAD, responds to questions, denies pain, noted to have been refusing medications. - Current Medication List Current Medications: Active Medications Albuterol/Ipratropium (Duoneb -) 1 amp NEB TIDR [facility] Last Admin: 01/05/17 14:10 Dose: Not Given Aspirin (Ecotrin -) 81 mg PO DAILY [facility] Last Admin: 01/05/17 09:16 Dose: Not Given Clopidogrel Bisulfate (Plavix -) 75 mg PO DAILY [facility] Last Admin: 01/05/17 09:16 Dose: Not Given Collagenase (Santyl -) 1 applic TP DAILY [facility] Last Admin: 01/05/17 09:43 Dose: 1 applic Divalproex Sodium (Depakote Sprinkle Caps -) 250 mg PO DAILY [facility] Last Admin: 01/05/17 09:16 Dose: Not Given Heparin Sodium (Porcine) (Heparin -) 5,000 unit SQ TID [facility] Last Admin: 01/05/17 14:11 Dose: Not Given Piperacillin Sod/Tazobactam Sod (Zosyn 3.375gm Ivpb (Pre-Docked)) 50 mls @ 100 mls/hr IVPB Q8H-IV [facility] PRN Reason: Protocol Last Admin: 01/05/17 17:17 Dose: Not Given Sodium Chloride (Normal Saline -) 1,000 mls @ 83 mls/hr IV ASDIR [facility] Last Admin: 01/05/17 14:10 Dose: Not Given Insulin Aspart (Novolog Vial Sliding Scale -) 1 vial SQ Q6HPO [facility] PRN Reason: Protocol Last Admin: 01/05/17 17:17 Dose: Not Given Levetiracetam (Keppra Xr -) 500 mg PO DAILY [facility] Last Admin: 01/05/17 09:16 Dose: Not Given Metronidazole (Flagyl -) 500 mg PO TID [facility] Last Admin: 01/05/17 14:10 Dose: Not Given Pantoprazole Sodium (Protonix 40mg Ivpb (Pre-Docked)) 40 mg IVPB DAILY [facility] Last Admin: 01/05/17 09:18 Dose: 40 mg - Objective Vital Signs: Vital Signs Temperature 97.8 F 01/05/17 16:00 Pulse Rate 91 H 01/05/17 18:00 Respiratory Rate 14 01/05/17 18:00 Blood Pressure 95/47 01/05/17 18:00 O2 Sat by Pulse Oximetry (%) 99 01/04/17 22:00 Constitutional: Yes: No Distress, Calm Eyes: Yes: Conjunctiva Clear, EOM Intact HENT: Yes: Atraumatic, Normocephalic Neck: Yes: Supple, Trachea Midline Cardiovascular: Yes: Regular Rate and Rhythm, S1, S2 Respiratory: Yes: Regular, CTA Bilaterally Gastrointestinal: Yes: Normal Bowel Sounds, Soft Extremities: Yes: Amputation Edema: No Peripheral Pulses WNL: Yes Neurological: Yes: Alert, Oriented Labs: CBC, BMP 01/05/17 06:00 01/05/17 06:00 INR, PTT INR 1.30 (0.82-1.09) H 01/04/17 05:30 Problem List - Problems (1) Failure to thrive Code(s): RWP0247 - Qualifiers: Failure to thrive age range: in adult Qualified Code(s): R62.7 - Adult failure to thrive (2) Pneumonia of both lower lobes Code(s): J18.9 - PNEUMONIA, UNSPECIFIED ORGANISM Qualifiers: Pneumonia type: aspiration pneumonia Aspiration pneumonia type: unspecified Qualified Code(s): J69.0 - Pneumonitis due to inhalation of food and vomit (3) 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 complication Code(s): E11.29 - TYPE 2 DIABETES MELLITUS W OTH DIABETIC KIDNEY COMPLICATION (4) Acute on chronic systolic (congestive) heart failure Code(s): I50.23 - ACUTE ON CHRONIC SYSTOLIC (CONGESTIVE) HEART FAILURE (5) CAD (coronary artery disease) Code(s): I25.10 - ATHSCL HEART DISEASE OF [place] CORONARY ARTERY W/O ANG PCTRS (6) CKD (chronic kidney disease) Code(s): N18.9 - CHRONIC KIDNEY DISEASE, UNSPECIFIED Qualifiers: Chronic kidney disease stage: stage 3 (moderate) Qualified Code(s): N18.3 - Chronic kidney disease, stage 3 (moderate) (7) Dehydration Code(s): E86.0 - DEHYDRATION (8) Depressed Code(s): F32.9 - MAJOR DEPRESSIVE DISORDER, SINGLE EPISODE, UNSPECIFIED Qualifiers: Depression Type: major depressive disorder Major depression recurrence : single episode Active/Remission status: currently active Major depression episode severity: severe Psychotic features: without psychotic features Qualified Code(s): F32.2 - Major depressive disorder, single episode, severe without psychotic features (9) Pneumonia Code(s): J18.9 - PNEUMONIA, UNSPECIFIED ORGANISM Qualifiers: Pneumonia type: aspiration pneumonia Laterality: bilateral Lung location: lower lobe of lung (10) CHF (congestive heart failure) Code(s): I50.9 - HEART FAILURE, UNSPECIFIED Qualifiers: (11) Diabetes Code(s): E11.9 - TYPE 2 DIABETES MELLITUS WITHOUT COMPLICATIONS (12) Diabetes mellitus type 2 in nonobese Code(s): E11.9 - TYPE 2 DIABETES MELLITUS WITHOUT COMPLICATIONS (13) Hyperlipemia Code(s): E78.5 - HYPERLIPIDEMIA, UNSPECIFIED (14) Thrombocytopenia Assessment/Plan: -HIT-ab -Hematology consult Code(s): D69.6 - THROMBOCYTOPENIA, UNSPECIFIED Assessment/Plan -continue Metronidazole PO for c. diff -complete dose of IV antibiotics, need to re-insert IV access (Patient pulled out IJ today) -monitor chest tube -encourage patient to eat -Next of Kin (Jonathan) aware of patient refusing medications -spoke to patient and agreed to take medications -repeat labs in am -may transfer to regular floor Thrombocytopenia -HIT-ab -Hematology consult
[2017-01-06] MEDS: PIPERACILLIN/TAZOB 3.375 GM 50 ML IVPB SCH ×4 (02:35→17:55)
[2017-01-06] MEDS: HEPARIN NA (PORCINE) 5,000 UNITS/ML 1ML VIAL SQ SCH ×3 (06:26→21:54)
[2017-01-06] MEDS: metroNIDAZOLE 250 MG TABLET PO SCH ×3 (06:36→21:54)
[2017-01-06] MEDS: INSULIN SLIDING SCALE (NOVOLOG) 1 VIAL SQ SCH ×3 (06:36→19:20)
[2017-01-06] MEDS: ALBUTEROL SO4 2.5/IPRATROPIUM 0.5 INH SOL 3 ML VIAL.NEB. NEB SCH ×3 (06:36→22:59)
[2017-01-06 06:43] LABS: BASOPHIL 0.5 % (0-2.0); MCH 31.7 pg (25.7-33.7); MCHC 33.6 g/dl (32.0-35.9); MEAN CELL VOLUME 94.4 fl (80-96); MEAN PLT VOLUME 9.3 fl (7.5-11.1); NEUTROPHILS 67.7 % (42.8-82.8); PLATELET COUNT 131 K/MM3 (134-434); WHITE BLOOD COUNT 5.2 K/mm3 (4.0-10.0)
[2017-01-06 07:01] LABS: ANION GAP 4 (8-16); CALCIUM 7.6 mg/dL (8.5-10.1); CO2 36 mmol/L (21-32); CREATININE 1.4 mg/dL (0.7-1.3); GLUCOSE,RANDOM 133 mg/dL (74-106); PHOSPHOROUS 2.1 mg/dL (2.5-4.9)
--- NOTE | 2017-01-06 07:41 | PN ---
Progress Note, Physician Chief Complaint: ID Flaquita continues Day 4 Rx Oral metronidazole - Current Medication List Current Medications: Active Medications Albuterol/Ipratropium (Duoneb -) 1 amp NEB TIDR [facility] Last Admin: 01/06/17 06:36 Dose: Not Given Aspirin (Ecotrin -) 81 mg PO DAILY [facility] Last Admin: 01/05/17 09:16 Dose: Not Given Clopidogrel Bisulfate (Plavix -) 75 mg PO DAILY [facility] Last Admin: 01/05/17 09:16 Dose: Not Given Collagenase (Santyl -) 1 applic TP DAILY [facility] Last Admin: 01/05/17 09:43 Dose: 1 applic Divalproex Sodium (Depakote Sprinkle Caps -) 250 mg PO DAILY [facility] Last Admin: 01/05/17 09:16 Dose: Not Given Heparin Sodium (Porcine) (Heparin -) 5,000 unit SQ TID [facility] Last Admin: 01/06/17 06:26 Dose: 5,000 unit Piperacillin Sod/Tazobactam Sod (Zosyn 3.375gm Ivpb (Pre-Docked)) 50 mls @ 100 mls/hr IVPB Q8H-IV [facility] PRN Reason: Protocol Last Admin: 01/06/17 02:35 Dose: Not Given Sodium Chloride (Normal Saline -) 1,000 mls @ 83 mls/hr IV ASDIR [facility] Last Admin: 01/05/17 14:10 Dose: Not Given Insulin Aspart (Novolog Vial Sliding Scale -) 1 vial SQ Q6HPO [facility] PRN Reason: Protocol Last Admin: 01/06/17 06:36 Dose: Not Given Levetiracetam (Keppra Xr -) 500 mg PO DAILY [facility] Last Admin: 01/05/17 09:16 Dose: Not Given Metronidazole (Flagyl -) 500 mg PO TID [facility] Last Admin: 01/06/17 06:36 Dose: 500 mg Pantoprazole Sodium (Protonix 40mg Ivpb (Pre-Docked)) 40 mg IVPB DAILY [facility] Last Admin: 01/05/17 09:18 Dose: 40 mg - Objective Vital Signs: Vital Signs Temperature 98.4 F 01/06/17 06:00 Pulse Rate 85 01/06/17 06:00 Respiratory Rate 14 01/06/17 06:00 Blood Pressure 96/63 01/06/17 06:00 O2 Sat by Pulse Oximetry (%) 96 01/05/17 22:00 Constitutional: Yes: No Distress Cardiovascular: Yes: Regular Rate and Rhythm, S1, S2 Respiratory: Yes: WNL, Regular, CTA Bilaterally Gastrointestinal: Yes: WNL, Normal Bowel Sounds, Soft Extremities: Yes: Amputation Edema: No Labs: CBC, BMP 01/06/17 05:15 01/06/17 05:15 INR, PTT INR 1.30 (0.82-1.09) H 01/04/17 05:30 Assessment/Plan Laboratory Tests 01/06/17 01/06/17 05:15 05:15 WBC 5.2 RBC 2.79 L Hct 26.4 L Plt Count 131 L BUN 19 H Creatinine 1.4 H Assessment PNA with pleural effusion chest tube culture neg Plan Continue Zosyn as ordered total 72 hours Binta DAVIDSON
[2017-01-06] MEDS ORDERED: POTASSIUM CHLORIDE TABS 20 MEQ TABLET.ER (FP) PO ONE (08:40)
--- NOTE | 2017-01-06 08:42 | PN ---
Progress Note, Physician History of Present Illness: AWAKE PULLED IV OUT REFUSING MEDS POOR APETITE - Current Medication List Current Medications: Active Medications Albuterol/Ipratropium (Duoneb -) 1 amp NEB TIDR [facility] Last Admin: 01/06/17 06:36 Dose: Not Given Aspirin (Ecotrin -) 81 mg PO DAILY [facility] Last Admin: 01/05/17 09:16 Dose: Not Given Clopidogrel Bisulfate (Plavix -) 75 mg PO DAILY [facility] Last Admin: 01/05/17 09:16 Dose: Not Given Collagenase (Santyl -) 1 applic TP DAILY [facility] Last Admin: 01/05/17 09:43 Dose: 1 applic Divalproex Sodium (Depakote Sprinkle Caps -) 250 mg PO DAILY [facility] Last Admin: 01/05/17 09:16 Dose: Not Given Heparin Sodium (Porcine) (Heparin -) 5,000 unit SQ TID [facility] Last Admin: 01/06/17 06:26 Dose: 5,000 unit Piperacillin Sod/Tazobactam Sod (Zosyn 3.375gm Ivpb (Pre-Docked)) 50 mls @ 100 mls/hr IVPB Q8H-IV [facility] PRN Reason: Protocol Last Admin: 01/06/17 02:35 Dose: Not Given Sodium Chloride (Normal Saline -) 1,000 mls @ 83 mls/hr IV ASDIR [facility] Last Admin: 01/05/17 14:10 Dose: Not Given Insulin Aspart (Novolog Vial Sliding Scale -) 1 vial SQ Q6HPO [facility] PRN Reason: Protocol Last Admin: 01/06/17 06:36 Dose: Not Given Levetiracetam (Keppra Xr -) 500 mg PO DAILY [facility] Last Admin: 01/05/17 09:16 Dose: Not Given Metronidazole (Flagyl -) 500 mg PO TID [facility] Last Admin: 01/06/17 06:36 Dose: 500 mg Pantoprazole Sodium (Protonix 40mg Ivpb (Pre-Docked)) 40 mg IVPB DAILY [facility] Last Admin: 01/05/17 09:18 Dose: 40 mg Potassium Phos/Sodium Phos (Phos-Nak Packet -) 1 packet PO ONCE ONE Stop: 01/06/17 08:41 - Objective Vital Signs: Vital Signs Temperature 98.4 F 01/06/17 06:00 Pulse Rate 85 01/06/17 06:00 Respiratory Rate 14 01/06/17 06:00 Blood Pressure 96/63 01/06/17 06:00 O2 Sat by Pulse Oximetry (%) 96 01/05/17 22:00 Cardiovascular: Yes: S1, S2 Respiratory: Yes: Diminished Gastrointestinal: Yes: Normal Bowel Sounds, Soft Labs: CBC, BMP 01/06/17 05:15 01/06/17 05:15 INR, PTT INR 1.30 (0.82-1.09) H 01/04/17 05:30 Problem List - Problems (1) CHF exacerbation Assessment/Plan: poor lv function cardio consult noted off diuretics Code(s): I50.9 - HEART FAILURE, UNSPECIFIED Qualifiers: Congestive heart failure type: unspecified congestive heart failure type Qualified Code(s): I50.9 - Heart failure, unspecified (2) Pneumonia of both lower lobes Assessment/Plan: iv abx per id id and pulm consult on board follow cxr follow labs follow cultures Code(s): J18.9 - PNEUMONIA, UNSPECIFIED ORGANISM Qualifiers: Pneumonia type: aspiration pneumonia Aspiration pneumonia type: unspecified Qualified Code(s): J69.0 - Pneumonitis due to inhalation of food and vomit (3) 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 complication Assessment/Plan: bgm monitor Code(s): E11.29 - TYPE 2 DIABETES MELLITUS W OTH DIABETIC KIDNEY COMPLICATION (4) CKD (chronic kidney disease) Assessment/Plan: Laboratory Tests 01/02/17 05:20 Potassium 5.5 H BUN 29 H Creatinine 1.7 H Code(s): N18.9 - CHRONIC KIDNEY DISEASE, UNSPECIFIED Qualifiers: Chronic kidney disease stage: stage 3 (moderate) Qualified Code(s): N18.3 - Chronic kidney disease, stage 3 (moderate) (5) Sepsis Code(s): A41.9 - SEPSIS, UNSPECIFIED ORGANISM Qualifiers: Sepsis type: sepsis due to unspecified organism Qualified Code(s): A41.9 - Sepsis, unspecified organism (6) Pleural effusion Assessment/Plan: chest tube in place Code(s): J90 - PLEURAL EFFUSION, NOT ELSEWHERE CLASSIFIED
[2017-01-06] MEDS ORDERED: PT OWN MED DRAWER 7, Y5N ONE (08:54)
[2017-01-06] MEDS ORDERED: NAPH,MB-DB/K PH,MBDB POWDER PACKET PO ONE (09:00)
--- NOTE | 2017-01-06 10:14 | PN ---
Progress Note, Physician History of Present Illness: seen and examined today in nad. awake and alert but states that he is tired and wants to rest. no overnight events. no new complaints. - Current Medication List Current Medications: Active Medications Albuterol/Ipratropium (Duoneb -) 1 amp NEB TIDR [facility] Last Admin: 01/06/17 06:36 Dose: Not Given Aspirin (Ecotrin -) 81 mg PO DAILY [facility] Last Admin: 01/05/17 09:16 Dose: Not Given Clopidogrel Bisulfate (Plavix -) 75 mg PO DAILY [facility] Last Admin: 01/05/17 09:16 Dose: Not Given Collagenase (Santyl -) 1 applic TP DAILY [facility] Last Admin: 01/05/17 09:43 Dose: 1 applic Divalproex Sodium (Depakote Sprinkle Caps -) 250 mg PO DAILY [facility] Last Admin: 01/05/17 09:16 Dose: Not Given Heparin Sodium (Porcine) (Heparin -) 5,000 unit SQ TID [facility] Last Admin: 01/06/17 06:26 Dose: 5,000 unit Piperacillin Sod/Tazobactam Sod (Zosyn 3.375gm Ivpb (Pre-Docked)) 50 mls @ 100 mls/hr IVPB Q8H-IV [facility] PRN Reason: Protocol Last Admin: 01/06/17 02:35 Dose: Not Given Sodium Chloride (Normal Saline -) 1,000 mls @ 83 mls/hr IV ASDIR [facility] Last Admin: 01/05/17 14:10 Dose: Not Given Insulin Aspart (Novolog Vial Sliding Scale -) 1 vial SQ Q6HPO [facility] PRN Reason: Protocol Last Admin: 01/06/17 06:36 Dose: Not Given Levetiracetam (Keppra Xr -) 500 mg PO DAILY [facility] Last Admin: 01/05/17 09:16 Dose: Not Given Metronidazole (Flagyl -) 500 mg PO TID [facility] Last Admin: 01/06/17 06:36 Dose: 500 mg Pantoprazole Sodium (Protonix 40mg Ivpb (Pre-Docked)) 40 mg IVPB DAILY [facility] Last Admin: 01/05/17 09:18 Dose: 40 mg - Objective Vital Signs: Vital Signs Temperature 98.4 F 01/06/17 06:00 Pulse Rate 80 01/06/17 08:00 Respiratory Rate 18 01/06/17 08:00 Blood Pressure 107/54 01/06/17 08:00 O2 Sat by Pulse Oximetry (%) 96 01/05/17 22:00 Constitutional: Yes: No Distress, Moderate Distress Eyes: Yes: Conjunctiva Clear, EOM Intact, PERRL HENT: Yes: Atraumatic, Normocephalic Neck: Yes: Supple, Trachea Midline Cardiovascular: Yes: Regular Rate and Rhythm, Murmur, S1, S2. No: Bradycardia, Tachycardia, Pulse Irregular, Bruit, JVD, Gallop, Rub, S3, S4, Varicosities, Other Respiratory: Yes: Regular, Diminished. No: Rales, Rhonchi, Wheezes Gastrointestinal: Yes: Normal Bowel Sounds, Soft Extremities: Yes: Amputation Edema: No Peripheral Pulses WNL: No Neurological: Yes: Alert, Oriented Psychiatric: Yes: Alert, Oriented Labs: CBC, BMP 01/06/17 05:15 01/06/17 05:15 INR, PTT INR 1.30 (0.82-1.09) H 01/04/17 05:30 - ....Imaging Chest X-ray: Report Reviewed, Image Reviewed EKG: Report Reviewed, Image Reviewed Other: Report Reviewed, Image Reviewed (tele-nsr, pvcs, couplets, brief PSVT) Assessment/Plan 61 year old man h/o COPD, PAD s/o amputations, PNA, DM, CKD, CAD s/p [place], ischemic CM, Chronic systolic CHF admitted with ams, lethargy, dec appettite, presumed sepsis. Sepsis-presumed secondary to PNA s/p chest tube -Receiving Abx -hypotension improved -off pressors -cont to hold lasix in setting of intravascular depletion, volume status seems to be improving CAD h/o [place], ischemic cardiomyopathy with chronic systolic CHF -intravascularly depleted, holding lasix -ASA was resumed as well as Plavix -plan to re-introduce coreg when bp tolerates -hold off on CRISTHIAN-I/ARB given CJ on CKD
[2017-01-06] MEDS: DIVALPROEX SODIUM 125 MG SPRINKLE CAPS (FP) PO SCH ×2 (10:57→12:00)
[2017-01-06] MEDS: ASPIRIN COATED 81 MG TABLET.EC PO SCH ×2 (10:57→12:00)
[2017-01-06] MEDS: CLOPIDOGREL BISULFATE 75 MG TABLET (FP) PO SCH ×2 (10:58→12:00)
[2017-01-06] MEDS: levETIRAcetam XR 500 MG TAB PO SCH ×2 (10:58→12:00)
[2017-01-06] MEDS: PANTOPRAZOLE SODIUM 40 MG/100 ML PRE-DOCKED IVPB SCH ×2 (10:59→13:00)
--- NOTE | 2017-01-06 14:45 | PN ---
Physical Exam: SUBJECTIVE: Patient seen and examined at bed side this morning. No complaints. Overnight, pulled out his central line, they tried placing an EJ but wasn't able to. Got a peripheral line today. OBJECTIVE: Vital Signs Period Temp Pulse Resp BP Sys/Mejia Pulse Ox Last 24 Hr 97.8 F-99 F 80-96 12-18 95-124/47-92 95-96 GENERAL: Patient is comfortably lying in bed, awake, alert, and fully oriented, in no acute distress. HEAD: Normal with no signs of trauma. EYES: EOM intact, no pallor or icterus. ENT: Ears normal, moist mucous membranes. NECK: Supple. LUNGS: Breath sounds decreased on the right than left, clear to auscultation bilaterally, minimal bibasilar crackles, no accessory muscle use, chest tube in the right side draining 750mls overnight. HEART: Regular rate and rhythm, S1, S2 soft systolic murmur. ABDOMEN: Soft, nontender, nondistended, normoactive bowel sounds, no guarding, no rebound, no hepatosplenomegaly, no masses. EXTREMITIES: 2+ pulses, warm, well-perfused, no edema. LLE BKA strump with suture line ulcer with granulation tissue and fibrinous exudate possible purulent drainage with some surrounding erythemia. LLE knee ulcer with granulation tissue and fibrinous exudate/ RLE TMA stump C/D/I RLE plantar ulcer with callous formation) NEUROLOGICAL: No facial droop, Cranial nerves II through XII grossly intact. Normal speech, gait not observed. PSYCH: Normal mood, normal affect. SKIN: Warm, dry, normal turgor, no rashes or lesions noted Laboratory Results - last 24 hr 01/05/17 01/05/17 01/06/17 06:32 21:41 05:15 WBC 5.2 RBC 2.79 L Hgb 8.9 L Hct 26.4 L MCV 94.4 MCH 31.7 MCHC 33.6 RDW 18.0 H Plt Count 131 L MPV 9.3 Neutrophils % 67.7 Lymphocytes % 14.2 D Monocytes % 13.6 H Eosinophils % 4.0 Basophils % 0.5 Sodium Potassium Chloride Carbon Dioxide Anion Gap BUN Creatinine POC Glucometer 142.95567 [phone] Random Glucose Calcium Phosphorus Magnesium 08/07/17 08/07/17 05:15 06:30 WBC RBC Hgb Hct MCV MCH MCHC RDW Plt Count MPV Neutrophils % Lymphocytes % Monocytes % Eosinophils % Basophils % Sodium 142 Potassium 3.3 L Chloride 102 Carbon Dioxide 36 H Anion Gap 4 L BUN 19 H Creatinine 1.4 H POC Glucometer [phone] Random Glucose 133 H D Calcium 7.6 L Phosphorus 2.1 L D Magnesium 2.0 Active Medications Generic Name Dose Route Start Last Admin Trade Name Freq PRN Reason Stop Dose Admin Albuterol/Ipratropium 1 amp 01/03/17 22:00 01/06/17 13:59 Duoneb - NEB 1 amp TIDR [facility] Administration Aspirin 81 mg 01/02/17 12:30 01/06/17 10:57 Ecotrin - PO Not Given DAILY [facility] Clopidogrel Bisulfate 75 mg 01/02/17 12:30 01/06/17 10:58 Plavix - PO Not Given DAILY [facility] Collagenase 1 applic 01/03/17 10:00 01/05/17 09:43 Santyl - TP 1 applic DAILY [facility] Administration Divalproex Sodium 250 mg 01/02/17 13:00 01/06/17 10:57 Depakote Sprinkle Caps - PO Not Given [facility]ILY [facility] Heparin Sodium (Porcine) 5,000 unit 01/02/17 14:00 01/06/17 06:26 Heparin - SQ 5,000 unit TID [facility] Administration Piperacillin Sod/Tazobactam Sod 50 mls @ 100 mls/hr 01/02/17 18:00 01/06/17 10: 59 Zosyn 3.375gm Ivpb (Pre-Docked) IVPB Not Given Q8H-IV [facility] Protocol Sodium Chloride 1,000 mls @ 83 mls/hr 01/03/17 14:15 01/05/17 14:10 Normal Saline - IV Not Given ASDIR [facility] Insulin Aspart 1 vial 01/02/17 08:15 01/06/17 12:42 Novolog Vial Sliding Scale - SQ Not Given Q6HPO [facility] Protocol Levetiracetam 500 mg 01/04/17 10:00 01/06/17 10:58 Keppra Xr - PO Not Given DAILY [facility] Metronidazole 500 mg 01/04/17 14:00 01/06/17 06:36 Flagyl - PO 500 mg TID [facility] Administration Pantoprazole Sodium 40 mg 01/04/17 10:00 01/06/17 10:59 Protonix 40mg Ivpb (Pre-Docked) IVPB Not Given DAILY [facility] ASSESSMENT/PLAN: Patient is a 61 year old Male with past medical history of DM, HTN, COPD, & RUBY , came from [facility] (was there for rehab) presented to the ED with poor oral intake weakness failure to thrive and septic shock secondary to pneumonia. # Septic shock likely secondary to bilateral pneumonia- health care associated pneumonia- Resolving Not on pressors, leukocytosis improved, afebrile. IV Zosyn received for a total of 3 days, has been refusing since yesterday. Blood culture negative C. diff Ag Positive, toxic negative IV Metronizadole Day 2 # Normocytic Anemia Received 1 prbc on 12/03/16, Hb improved post tranfusion Monitor H/H, transfuse PRBC if Hb < 7gm/dl or if actively bleeding # Acute Kidney Injury likely prerenal creatinine 1.4 Continue Gentle hydration Avoid Nephrotoxic drugs D/c morrissey today, bladder scan if there is no urine output in 8 hrs. # CAD s/p CABG Continue aspirin and plavix # Acute on chronic exacerbation systolic and diastolic right and left sided CHF Doesn't look fluid overloaded I's and o's. Daily weight # Peripheral vascular disease Continue statin, aspirin and Plavix # COPD not in exacerbation Oxygen PRN and Nebs PRN # Seizures No seizure activity noted during hospitalization Continue depakote and keppra # DM HbA1c is pending ISS Finger stick glucose monitoring Watch for hypoglycemic episodes # Poor nutritional status not eating adequately, probably needs a PEG tube, but worrisome as patient might remove it as he removed central line twice. Will speak with the HCP regarding PEG tube placement. # FEN: IV NS @ 83mls/hr Electrolytes to be repeated tomorrow Diabetic diet # Prophylaxis For DVT- Heparin 5000 IU TID For GI: Not indicated # Code Status: Full Code # Dispo: Admitted in ICU. Stable to be transferred to Med-Surg- 8th floor since he has a chest tube. Illness, Investigation and Plan of care explained to the patient. He verbalized understanding. Case seen and discussed with Dr. Villatoro. Visit type - Emergency Visit Emergency Visit: Yes ED Registration Date: 01/01/17 Care time: The patient presented to the Emergency Department on the above date and was hospitalized for further evaluation of their emergent condition. - New Patient This patient is new to me today: No - Critical Care Critical Care patient: Yes Total Critical Care Time (in minutes): 35 Critical Care Statement: The care of this patient involved high complexity decision making to prevent further life threatening deterioration of the patient 's condition and/or to evalute & treat vital organ system(s) failure or risk of failure.
[2017-01-06] MEDS: SODIUM CHLORIDE 1,000 ML IV SCH (15:00)
[2017-01-06] MEDS: COLLAGENASE CLOSTRIDIUM HIST. 30 GRAMS TUBE TP SCH (16:40)
--- NOTE | 2017-01-06 17:33 | PN ---
Teaching Attending Note Name of Resident: Lennie Roth ATTENDING PHYSICIAN STATEMENT I saw and evaluated the patient. I reviewed the resident's note and discussed the case with the resident. I agree with the resident's findings and plan as documented. SUBJECTIVE: Patient seen and examined in the ICU. Awake and responsive. Noted he dislodged his CVC again. Still with significant output from the left pigtail. Intake & Output 01/03/17 01/04/17 01/05/17 01/06/17 23:59 23:59 23:59 23:59 Intake Total 2735 2524 1710.5 120 Output Total 1374 2460 1800 1550 Balance 1361 64 -89.5 -1430 Weight 178 lb 9.6 oz 178 lb 177 lb 4.8 oz 176 lb 14.4 oz Last Vital Signs Temp Pulse Resp BP Pulse Ox 98.5 F 88 16 102/70 95 01/06/17 14:00 01/06/17 14:00 01/06/17 14:00 01/06/17 14:00 01/06/17 09:00 Active Medications Albuterol/Ipratropium (Duoneb -) 1 amp NEB TIDR [facility] Last Admin: 01/06/17 13:59 Dose: 1 amp Aspirin (Ecotrin -) 81 mg PO DAILY [facility] Last Admin: 01/05/17 09:16 Dose: Not Given Clopidogrel Bisulfate (Plavix -) 75 mg PO DAILY [facility] Last Admin: 01/05/17 09:16 Dose: Not Given Collagenase (Santyl -) 1 applic TP DAILY [facility] Last Admin: 01/06/17 16:40 Dose: 1 applic Divalproex Sodium (Depakote Sprinkle Caps -) 250 mg PO DAILY [facility] Last Admin: 01/05/17 09:16 Dose: Not Given Heparin Sodium (Porcine) (Heparin -) 5,000 unit SQ TID [facility] Last Admin: 01/06/17 16:00 Dose: 5,000 unit Piperacillin Sod/Tazobactam Sod (Zosyn 3.375gm Ivpb (Pre-Docked)) 50 mls @ 100 mls/hr IVPB Q8H-IV [facility] PRN Reason: Protocol Last Admin: 01/06/17 02:35 Dose: Not Given Sodium Chloride (Normal Saline -) 1,000 mls @ 83 mls/hr IV ASDIR [facility] Last Admin: 01/06/17 15:00 Dose: 83 mls/hr Insulin Aspart (Novolog Vial Sliding Scale -) 1 vial SQ Q6HPO [facility] PRN Reason: Protocol Last Admin: 01/06/17 12:42 Dose: Not Given Levetiracetam (Keppra Xr -) 500 mg PO DAILY [facility] Last Admin: 01/05/17 09:16 Dose: Not Given Metronidazole (Flagyl -) 500 mg PO TID [facility] Last Admin: 01/06/17 16:00 Dose: 500 mg Pantoprazole Sodium (Protonix 40mg Ivpb (Pre-Docked)) 40 mg IVPB DAILY [facility] Last Admin: 01/05/17 09:18 Dose: 40 mg Constitutional: Yes: Awake and responsive, confused Eyes: Yes: WNL (surgical L pupil), Other HENT: Yes: WNL, Atraumatic, Normocephalic Neck: Yes: WNL, Supple, Trachea Midline Cardiovascular: Yes: WNL, Regular Rate and Rhythm Respiratory: Yes: Scattered bilateral Rhonchi Gastrointestinal: Yes: WNL, Normal Bowel Sounds, Soft ...Rectal Exam: Yes: Deferred Renal/: Yes: WNL Breast(s): Yes: WNL Musculoskeletal: Yes: WNL Extremities: Yes: Amputation Edema: No Peripheral Pulses WNL: Yes Neurological: Yes: Poorly responsive Labs: Laboratory Results - last 24 hr 01/05/17 01/05/17 01/06/17 06:32 21:41 05:00 WBC RBC Hgb Hct MCV MCH MCHC RDW Plt Count MPV Neutrophils % Lymphocytes % Monocytes % Eosinophils % Basophils % Sodium Potassium Chloride Carbon Dioxide Anion Gap BUN Creatinine POC Glucometer 142.48328 209.24551 Random Glucose Hemoglobin A1c % 6.2 H D Calcium Phosphorus Magnesium 01/06/17 01/06/17 01/06/17 05:15 05:15 06:30 WBC 5.2 RBC 2.79 L Hgb 8.9 L Hct 26.4 L MCV 94.4 MCH 31.7 MCHC 33.6 RDW 18.0 H Plt Count 131 L MPV 9.3 Neutrophils % 67.7 Lymphocytes % 14.2 D Monocytes % 13.6 H Eosinophils % 4.0 Basophils % 0.5 Sodium 142 Potassium 3.3 L Chloride 102 Carbon Dioxide 36 H Anion Gap 4 L BUN 19 H Creatinine 1.4 H POC Glucometer [phone] Random Glucose 133 H D Hemoglobin A1c % Calcium 7.6 L Phosphorus 2.1 L D Magnesium 2.0 Problem List - Problems (1) Pneumonia Code(s): J18.9 - PNEUMONIA, UNSPECIFIED ORGANISM Qualifiers: Pneumonia type: due to unspecified organism Laterality: bilateral Lung location: lower lobe of lung Qualified Code(s): J18.9 - Pneumonia, unspecified organism (2) CHF exacerbation Code(s): I50.9 - HEART FAILURE, UNSPECIFIED Qualifiers: Congestive heart failure type: unspecified congestive heart failure type Qualified Code(s): I50.9 - Heart failure, unspecified (3) 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 complication Code(s): E11.29 - TYPE 2 DIABETES MELLITUS W OTH DIABETIC KIDNEY COMPLICATION (4) RUBY (acute kidney injury) Code(s): N17.9 - ACUTE KIDNEY FAILURE, UNSPECIFIED (5) Acquired absence of left foot Code(s): Z89.432 - ACQUIRED ABSENCE OF LEFT FOOT (6) Acquired absence of right foot Code(s): Z89.431 - ACQUIRED ABSENCE OF RIGHT FOOT (7) CAD (coronary artery disease) Code(s): I25.10 - ATHSCL HEART DISEASE OF [place] CORONARY ARTERY W/O ANG PCTRS (8) Cellulitis and abscess of foot Code(s): L03.119 - CELLULITIS OF UNSPECIFIED PART OF LIMB L02.619 - CUTANEOUS ABSCESS OF UNSPECIFIED FOOT (9) FDC current use of insulin Code(s): Z79.4 - [facility]CI (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 OF INSULIN Assessment/Plan Septic Shock due to PNA Toxic Metabolic Encephalopathy suspected (?) Hypercapnia DM HTN COPD RUBY Bilateral PNA (?) aspiration Acute Respiratory Failure PLAN: ABX O2 as needed Aspiration precautions PO as tolerated BD TX Glycemic control VTE prophylaxis Follow CT outputs and CXR Dr Villatoro Critical Care Time/MDM Note Total Critical Care Time: 35 Critical Care Statement: The care of this patient involved high complexity decision making to prevent further life threatening deterioration of the patient 's condition and/or to evalute & treat vital organ system(s) failure or risk of failure.
[2017-01-06] MEDS ORDERED: SODIUM CHLORIDE 0.9%/KCL 1,000 ML IV SCH (18:00)
--- NOTE | 2017-01-06 21:22 | PN ---
Mental Health Exam - Mental Status Exam Alert and Oriented to: Place, Person Cognitive Function: Grossly Intact Patient Appearance: Unkempt (long white sibley. ) Mood: Apathetic, Withdrawn, Irritable ("ah please, leave me alone") Affect: Appropriate Patient Behavior: Fatigued, Belligerent ('i have nothing to say to you"), Resitive to Care (Unco-operative with signwriter, not taking meds per RN ) Speech Pattern: Clear Voice Loudness: Mildly Loud Thought Process: Intact Thought Disorder: Not Present Hallucinations: Denies Suicidal Ideation: Denies Homicidal Ideation: Denies Insight/Judgement: Poor (pulling out lines last pm. ) Sleep: Fair (sleep this pm. ) Appetite: Fair Muscle strength/Tone: Normal Gait/Station: Deferred
--- NOTE | 2017-01-06 21:30 | PN ---
Progress Note (short form) - Note Progress Note: Consult recieved for Capacity and non adherence with treatment. Client sitting up in bed, unwilling to co-operate with Mental health status exam and interview. Client has history of depression, DM, chest tube currently, CKO, CHF. i met client on previous admission on medica floors, known to physician underwriter. Irritable affect currently,alert and orientated by 2. Plan. on depakote 250 mg per day. Client has capacity to make own decisions. Involve caregiver/ appointed health care proxy Jonathan (cousin), no scanned/ copy of advance directive noted on file. discussed case with FRANCK Barragan, present. Thanks for consult.
--- NOTE | 2017-01-06 22:10 | CONSULT ---
Consult Consult Specialty:: hematology Reason for Consultation:: thrombocytopenia - History of Present Illness History of Present Illness: 61 year old man h/o COPD, PAD s/o amputations, PNA, DM, CKD, CAD s/p [place], ischemic CM, Chronic systolic CHF admitted with ams, lethargy, was being treated for septic shock in the setting of PNA , now has chest tube with significant drainage and also found to be C diff positive. Hematology consulted for thrombocytopenia. Pt did not provide hx saying to leave him alone. 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: Peripheral Neuropathy Cardio/Vascular: Yes: CAD (CABG 2009., stents x5), CHF, HTN Pulmonary: Yes: COPD Gastrointestinal: Yes: Constipation Renal/: Yes: Renal Inusuff Psych: Yes: Anxiety, Depression Musculoskeletal: Yes: Other Endocrine: Yes: Diabetes Mellitus - Past Surgical History Past Surgical History: Yes: Amputation (left TMT, right 1st and 2nd toes), CABG (2008 at [facility]) - Alcohol/Substance Use Hx Alcohol Use: No - Smoking History Smoking history: Never smoked Have you smoked in the past 12 months: No Aproximately how many cigarettes per day: 0 - Social History Usual Living Arrangement: Shelter ADL: Independent 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 Home Medications - Allergies Allergies/Adverse Reactions: Allergies Allergy/AdvReac Type Severity Reaction Status Date / Time banana Allergy Verified 01/01/17 18:47 - Home Medications Home Medications: Ambulatory Orders Ascorbate Calcium [Vitamin C] 500 mg PO DAILY 06/22/16 Calcitriol [Calcitriol -] 0.25 mcg PO DAILY 06/22/16 Levetiracetam [Keppra Xr -] 500 mg PO DAILY 06/22/16 Sevelamer HCl [Renagel] 800 mg PO TID 06/22/16 Atorvastatin Ca [Lipitor] 20 mg PO HS #30 tablet 06/29/16 Acetaminophen [Tylenol .Regular Strength -] 650 mg PO Q4H PRN #0 tablet Furosemide [Lasix -] 20 mg PO DAILY #30 tablet 09/26/16 Insulin (Levemir) [Levemir Vial] 10 units SQ BIDI #10 ml 09/26/16 Insulin Sliding Scale [Novolog Vial Sliding Scale -] 1 vial SQ ACHS units 09/26 Potassium Chloride [K-Dur -] 20 meq PO DAILY #30 tab 09/26/16 Aspirin Coated [Ecotrin -] 81 mg PO DAILY #30 tab 12/11/16 Carvedilol [Coreg -] 3.125 mg PO BID tablet 12/11/16 Clopidogrel Bisulfate [Plavix -] 75 mg PO DAILY tablet 12/11/16 Divalproex [Depakote -] 250 mg PO DAILY tab 12/11/16 Lactobacillus Acidophilus [Bacid -] 1 tab PO DAILY 30 Days 12/11/16 Mirtazapine [Remeron -] 30 mg PO HS tablet 12/11/16 Oxycodone HCl [Roxicodone -] 5 mg PO Q4H PRN #0 tablet MDD 6 12/11/16 Diazepam [Valium] 5 mg PO BID PRN #0 tablet MDD 2 12/20/16 Pantoprazole Sodium [Protonix -] 40 mg PO DAILY tab 12/20/16 Family Disease History - Family Disease History Family Disease History: Diabetes: Sister Physical Exam Vital Signs: Vital Signs Temperature 99.1 F 01/06/17 16:00 Pulse Rate 87 01/06/17 20:00 Respiratory Rate 20 01/06/17 20:00 Blood Pressure 114/66 01/06/17 20:00 O2 Sat by Pulse Oximetry (%) 95 01/06/17 20:59 Constitutional: Yes: Other (Pt appeared agitated, did not allow me to perform a comprehensive physical exam) Labs: CBC, BMP 01/06/17 05:15 01/06/17 05:15 Imaging - Results X-ray: Report Reviewed Cat Scan: Report Reviewed Problem List - Problems (1) Thrombocytopenia Code(s): D69.6 - THROMBOCYTOPENIA, UNSPECIFIED (2) Anemia Code(s): D64.9 - ANEMIA, UNSPECIFIED Qualifiers: Anemia type: unspecified type Qualified Code(s): D64.9 - Anemia, unspecified (3) Pneumonia of both lower lobes Code(s): J18.9 - PNEUMONIA, UNSPECIFIED ORGANISM Qualifiers: Pneumonia type: aspiration pneumonia Aspiration pneumonia type: unspecified Qualified Code(s): J69.0 - Pneumonitis due to inhalation of food and vomit (4) Respiratory failure Code(s): J96.90 - RESPIRATORY FAILURE, UNSP, UNSP W HYPOXIA OR HYPERCAPNIA Qualifiers: Chronicity: acute Respiratory failure complication: hypoxia and hypercapnia Qualified Code(s): J96.01 - Acute respiratory failure with hypoxia (5) RUBY (acute kidney injury) Code(s): N17.9 - ACUTE KIDNEY FAILURE, UNSPECIFIED Assessment/Plan Normocytic anemia Thrombocytopenia PNA , s/p chest tube placement C diff RUBY Chart reviewed in detail. Thrombocytopenia ,on the uptrend likely medication induced/sepsis, zosyn, depakote, will send off basic w/u. No indication for transfusion now. If pt co-operates, can obtain US, to review the size of the spleen. Normocytic anemia, iron studies reviewed. Likely ACD/ACI in the setting of CKD. Continue to monitor. Elevated PTT- will repeat prior to obtaining further tests. MDS also on the differential in the setting his age/anemia/thrombocytopenia, pt un-coperative for any interventions, will recommend to continue supportive care in terms of the counts. Will follow
[2017-01-06] MEDS ORDERED: oxyCODONE HCL 5 MG TABLET ONE (22:44)
[2017-01-06] MEDS ORDERED: oxyCODONE HCL 5 MG TABLET PO ONE (22:45)
[2017-01-06] MEDS ORDERED: ACETAMINOPHEN 325 MG TABLET (FP) PO ONE (22:45)
[2017-01-06] MEDS ORDERED: ACETAMINOPHEN 325 MG TABLET (FP) ONE (22:45)
[2017-01-07] MEDS: PIPERACILLIN/TAZOB 3.375 GM 50 ML IVPB SCH ×3 (02:39→17:11)
[2017-01-07] MEDS: metroNIDAZOLE 250 MG TABLET PO SCH ×3 (05:27→22:08)
[2017-01-07] MEDS: HEPARIN NA (PORCINE) 5,000 UNITS/ML 1ML VIAL SQ SCH ×3 (05:28→22:09)
[2017-01-07] MEDS: INSULIN SLIDING SCALE (NOVOLOG) 1 VIAL SQ SCH ×4 (06:29→18:54)
[2017-01-07] MEDS: ALBUTEROL SO4 2.5/IPRATROPIUM 0.5 INH SOL 3 ML VIAL.NEB. NEB SCH ×3 (06:32→22:16)
[2017-01-07 06:37] LABS: MCH 31.9 pg (25.7-33.7); MCHC 33.6 g/dl (32.0-35.9); MEAN CELL VOLUME 94.9 fl (80-96); MEAN PLT VOLUME 9.1 fl (7.5-11.1); PLATELET COUNT 116 K/MM3 (134-434); RDW 18.3 % (11.9-15.9); WHITE BLOOD COUNT 4.1 K/mm3 (4.0-10.0)
[2017-01-07 07:02] LABS: INR 1.34 (0.82-1.09); PROTHROMBIN TIME (PATIENT) 14.8 SEC (9.98-11.88)
[2017-01-07 07:05] LABS: ACTIVATED PTT 36.5 SECONDS (26.9-34.4)
[2017-01-07 07:08] LABS: BILIRUBIN,TOTAL 0.6 mg/dL (0.2-1.0); LDH 101 U/L (87-241); PHOSPHOROUS 2.2 mg/dL (2.5-4.9); TOT PROT 4.5 g/dl (6.4-8.2)
[2017-01-07 07:10] LABS: ALBUMIN 1.8 g/dl (3.4-5.0); ANION GAP 5 (8-16); CALCIUM 7.6 mg/dL (8.5-10.1); CO2 34 mmol/L (21-32); CREATININE 1.3 mg/dL (0.7-1.3); GLUCOSE,RANDOM 99 mg/dL (74-106); MAGNESIUM 1.9 mg/dL (1.8-2.4); SGOT/AST 16 U/L (15-37); SGPT/ALT 13 U/L (12-78)
[2017-01-07 07:17] LABS: ALK PHOS 67 U/L (45-117)
--- NOTE | 2017-01-07 08:39 | PN ---
Progress Note, Physician Chief Complaint: alert TELE: NSR, PVCs - Current Medication List Current Medications: Active Medications Albuterol/Ipratropium (Duoneb -) 1 amp NEB TIDR [facility] Last Admin: 01/07/17 06:32 Dose: Not Given Aspirin (Ecotrin -) 81 mg PO DAILY [facility] Clopidogrel Bisulfate (Plavix -) 75 mg PO DAILY [facility] Collagenase (Santyl -) 1 applic TP DAILY [facility] Divalproex Sodium (Depakote Sprinkle Caps -) 250 mg PO DAILY [facility] Heparin Sodium (Porcine) (Heparin -) 5,000 unit SQ TID [facility] Last Admin: 01/07/17 05:28 Dose: 5,000 unit Potassium Chloride/Sodium Chloride (Ns+20 Meq Kcl -) 1,000 mls @ 50 mls/hr IV ASDIR [facility] Last Admin: 01/06/17 17:56 Dose: 50 mls/hr Piperacillin Sod/Tazobactam Sod (Zosyn 3.375gm Ivpb (Pre-Docked)) 50 mls @ 100 mls/hr IVPB Q8H-IV [facility] PRN Reason: Protocol Last Admin: 01/07/17 02:39 Dose: 100 mls/hr Insulin Aspart (Novolog Vial Sliding Scale -) 1 vial SQ Q6HPO [facility] PRN Reason: Protocol Last Admin: 01/07/17 06:29 Dose: Not Given Levetiracetam (Keppra Xr -) 500 mg PO DAILY [facility] Metronidazole (Flagyl -) 500 mg PO TID [facility] Last Admin: 01/07/17 05:27 Dose: 500 mg Pantoprazole Sodium (Protonix 40mg Ivpb (Pre-Docked)) 40 mg IVPB DAILY [facility] - Objective Vital Signs: Vital Signs Temperature 98.9 F 01/07/17 06:00 Pulse Rate 79 01/07/17 06:00 Respiratory Rate 20 01/07/17 06:00 Blood Pressure 98/57 01/07/17 06:00 O2 Sat by Pulse Oximetry (%) 95 01/06/17 20:59 Constitutional: Yes: No Distress Cardiovascular: Yes: Regular Rate and Rhythm Respiratory: Yes: Other (no rales or wheezing) Gastrointestinal: Yes: Soft Edema: Yes Edema: LLE: 1+, RLE: 1+ Neurological: Yes: Alert Labs: CBC, BMP 01/07/17 05:15 01/07/17 05:15 INR, PTT INR 1.34 (0.82-1.09) H 01/07/17 05:15 Fibrinogen 375.0 mg/dL (238-498) 01/07/17 05:15 Microbiology 01/02/17 00:40 Blood - Central Line Blood Culture - Final NO GROWTH AFTER 5 DAYS INCUBATION 01/02/17 00:40 Blood - Central Line Blood Culture - Final NO GROWTH AFTER 5 DAYS INCUBATION 01/01/17 19:55 Blood - Peripheral Venous Blood Culture - Final NO GROWTH AFTER 5 DAYS INCUBATION 01/01/17 19:55 Blood - Peripheral Venous Blood Culture - Final NO GROWTH AFTER 5 DAYS INCUBATION 01/02/17 16:00 Pleural Fluid MARIA D Preparation - Preliminary 01/02/17 16:00 Pleural Fluid Fungal Culture - Preliminary Laboratory Tests 01/07/17 01/07/17 05:15 05:15 WBC 4.1 Hgb 8.4 L Plt Count 116 L Sodium 144 Potassium 3.6 BUN 17 Creatinine 1.3 - ....Imaging EKG: Image Reviewed Assessment/Plan Assessment/Plan 61 year old man h/o COPD, PAD s/o amputations, PNA, DM, CKD, CAD s/p [place], ischemic CM, Chronic systolic CHF admitted with ams, lethargy, dec appettite, presumed sepsis. Sepsis-presumed secondary to PNA and C. diff s/p chest tube -Receiving Abx -hypotension improved -off pressors -cont to hold lasix in setting of intravascular depletion, volume status seems to be improving CAD h/o [place], ischemic cardiomyopathy with chronic systolic CHF -intravascularly depleted, holding lasix -ASA was resumed as well as Plavix -plan to re-introduce coreg when bp tolerates -hold off on CRISTHIAN-I/ARB given CJ on CKD
--- NOTE | 2017-01-07 08:46 | PN ---
Progress Note, Physician History of Present Illness: AWAKE PULLED IV OUT REFUSING MEDS POOR APETITE--PEG TUBE D/W PT--WANTS TO THINK ABOUT IT - Current Medication List Current Medications: Active Medications Albuterol/Ipratropium (Duoneb -) 1 amp NEB TIDR [facility] Last Admin: 01/07/17 06:32 Dose: Not Given Alprazolam (Xanax -) 0.25 mg PO Q8H PRN PRN Reason: ANXIETY Aspirin (Ecotrin -) 81 mg PO DAILY [facility] Clopidogrel Bisulfate (Plavix -) 75 mg PO DAILY [facility] Collagenase (Santyl -) 1 applic TP DAILY [facility] Divalproex Sodium (Depakote Sprinkle Caps -) 250 mg PO DAILY [facility] Heparin Sodium (Porcine) (Heparin -) 5,000 unit SQ TID [facility] Last Admin: 01/07/17 05:28 Dose: 5,000 unit Piperacillin Sod/Tazobactam Sod (Zosyn 3.375gm Ivpb (Pre-Docked)) 50 mls @ 100 mls/hr IVPB Q8H-IV [facility] PRN Reason: Protocol Last Admin: 01/07/17 02:39 Dose: 100 mls/hr Insulin Aspart (Novolog Vial Sliding Scale -) 1 vial SQ Q6HPO [facility] PRN Reason: Protocol Last Admin: 01/07/17 06:29 Dose: Not Given Levetiracetam (Keppra Xr -) 500 mg PO DAILY [facility] Metronidazole (Flagyl -) 500 mg PO TID [facility] Last Admin: 01/07/17 05:27 Dose: 500 mg Mirtazapine (Remeron -) 7.5 mg PO HS [facility] Pantoprazole Sodium (Protonix 40mg Ivpb (Pre-Docked)) 40 mg IVPB DAILY [facility] - Objective Vital Signs: Vital Signs Temperature 98.9 F 01/07/17 06:00 Pulse Rate 79 01/07/17 06:00 Respiratory Rate 20 01/07/17 06:00 Blood Pressure 98/57 01/07/17 06:00 O2 Sat by Pulse Oximetry (%) 95 01/06/17 20:59 Cardiovascular: Yes: Murmur, S1, S2 Respiratory: Yes: On Nasal O2, Rales Gastrointestinal: Yes: Normal Bowel Sounds, Soft Labs: CBC, BMP 01/07/17 05:15 01/07/17 05:15 INR, PTT INR 1.34 (0.82-1.09) H 01/07/17 05:15 Fibrinogen 375.0 mg/dL (238-498) 01/07/17 05:15 Problem List - Problems (1) CHF exacerbation Assessment/Plan: poor lv function cardio consult noted off diuretics Code(s): I50.9 - HEART FAILURE, UNSPECIFIED Qualifiers: Congestive heart failure type: unspecified congestive heart failure type Qualified Code(s): I50.9 - Heart failure, unspecified (2) Pneumonia of both lower lobes Assessment/Plan: iv abx per id id and pulm consult on board follow cxr follow labs follow cultures Code(s): J18.9 - PNEUMONIA, UNSPECIFIED ORGANISM Qualifiers: Pneumonia type: aspiration pneumonia Aspiration pneumonia type: unspecified Qualified Code(s): J69.0 - Pneumonitis due to inhalation of food and vomit (3) 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 complication Assessment/Plan: bgm monitor Code(s): E11.29 - TYPE 2 DIABETES MELLITUS W OTH DIABETIC KIDNEY COMPLICATION (4) CKD (chronic kidney disease) Assessment/Plan: Laboratory Tests 01/02/17 05:20 Potassium 5.5 H BUN 29 H Creatinine 1.7 H Code(s): N18.9 - CHRONIC KIDNEY DISEASE, UNSPECIFIED Qualifiers: Chronic kidney disease stage: stage 3 (moderate) Qualified Code(s): N18.3 - Chronic kidney disease, stage 3 (moderate) (5) Sepsis Assessment/Plan: on pressers abx follow cultures Code(s): A41.9 - SEPSIS, UNSPECIFIED ORGANISM Qualifiers: Sepsis type: sepsis due to unspecified organism Qualified Code(s): A41.9 - Sepsis, unspecified organism (6) Pleural effusion Assessment/Plan: chest tube in place PER PULM Code(s): J90 - PLEURAL EFFUSION, NOT ELSEWHERE CLASSIFIED (7) Appetite loss Assessment/Plan: PEG D/W PT HE WILL CONSIDER DIETARY Code(s): R63.0 - ANOREXIA (8) Anxiety Assessment/Plan: REMERON XANAX Code(s): F41.9 - ANXIETY DISORDER, UNSPECIFIED
--- NOTE | 2017-01-07 09:16 | PN ---
Physical Exam: SUBJECTIVE: Patient seen and examined at bed side this morning. Says that he is feeling very anxious and wants something to calm him. no acute overnight events. OBJECTIVE: Vital Signs Period Temp Pulse Resp BP Sys/Mejia Pulse Ox Last 24 Hr 98.5 F-99.1 F 79-99 16-20 94-119/54-70 95 GENERAL: Patient is comfortably lying in bed, awake, alert, and fully oriented, in no acute distress. HEAD: Normal with no signs of trauma. EYES: EOM intact, no pallor or icterus. ENT: Ears normal, moist mucous membranes. NECK: Supple. LUNGS: Breath sounds decreased on the right than left, clear to auscultation bilaterally, minimal bibasilar crackles, no accessory muscle use, chest tube in the right side draining 50mls overnight. HEART: Regular rate and rhythm, S1, S2 soft systolic murmur. ABDOMEN: Soft, nontender, nondistended, normoactive bowel sounds, no guarding, no rebound, no hepatosplenomegaly, no masses. EXTREMITIES: 2+ pulses, warm, well-perfused, no edema. LLE BKA strump with suture line ulcer with granulation tissue- erythemia is improving. LLE knee ulcer with granulation tissue and fibrinous exudate/ NEUROLOGICAL: No facial droop, Cranial nerves II through XII grossly intact. Normal speech, gait not observed. PSYCH: Normal mood, normal affect. SKIN: Warm, dry, normal turgor, no rashes or lesions noted Laboratory Results - last 24 hr 01/03/17 01/06/17 01/06/17 19:20 05:00 12:41 WBC RBC Hgb Hct MCV MCH MCHC RDW Plt Count MPV Retic Count INR PTT (Actin FS) Fibrinogen Sodium Potassium Chloride Carbon Dioxide Anion Gap BUN Creatinine Creat Clearance w eGFR POC Glucometer [phone] Random Glucose Hemoglobin A1c % 6.2 H D Calcium Phosphorus Magnesium Total Bilirubin AST ALT Alkaline Phosphatase LD Total Total Protein Albumin Vitamin B12 TSH Blood Type O POSITIVE Antibody Screen Negative Crossmatch See Detail 01/06/17 01/06/17 01/07/17 18:06 22:50 05:15 WBC 4.1 RBC 2.63 L Hgb 8.4 L Hct 25.0 L MCV 94.9 MCH 31.9 MCHC 33.6 RDW 18.3 H Plt Count 116 L MPV 9.1 Retic Count INR PTT (Actin FS) Fibrinogen Sodium Potassium Chloride Carbon Dioxide Anion Gap BUN Creatinine Creat Clearance w eGFR POC Glucometer 173.95745 179.05322 Random Glucose Hemoglobin A1c % Calcium Phosphorus Magnesium Total Bilirubin AST ALT Alkaline Phosphatase LD Total Total Protein Albumin Vitamin B12 TSH Blood Type Antibody Screen Crossmatch 01/07/17 01/07/17 01/07/17 05:15 05:15 05:15 WBC RBC Hgb Hct MCV MCH MCHC RDW Plt Count MPV Retic Count INR 1.34 H PTT (Actin FS) 36.5 H Fibrinogen 375.0 Sodium 144 Potassium 3.6 Chloride 105 Carbon Dioxide 34 H Anion Gap 5 L BUN 17 Creatinine 1.3 Creat Clearance w eGFR 55.75 POC Glucometer Random Glucose 99 D Hemoglobin A1c % Calcium 7.6 L Phosphorus 2.2 L Magnesium 1.9 Total Bilirubin 0.6 D AST 16 ALT 13 D Alkaline Phosphatase 67 LD Total 101 D Total Protein 4.5 L Albumin 1.8 L Vitamin B12 1087 H D TSH 2.70 D Blood Type Antibody Screen Crossmatch 01/07/17 01/07/17 05:15 06:05 WBC RBC Hgb Hct MCV MCH MCHC RDW Plt Count MPV Retic Count 0.91 INR PTT (Actin FS) Fibrinogen Sodium Potassium Chloride Carbon Dioxide Anion Gap BUN Creatinine Creat Clearance w eGFR POC Glucometer 133.37653 Random Glucose Hemoglobin A1c % Calcium Phosphorus Magnesium Total Bilirubin AST ALT Alkaline Phosphatase LD Total Total Protein Albumin Vitamin B12 TSH Blood Type Antibody Screen Crossmatch Active Medications Generic Name Dose Route Start Last Admin Trade Name Freq PRN Reason Stop Dose Admin Albuterol/Ipratropium 1 amp 01/06/17 22:00 01/07/17 06:32 Duoneb - NEB Not Given TIDR [facility] Alprazolam 0.25 mg 01/07/17 08:45 Xanax - PO Q8H PRN ANXIETY Aspirin 81 mg 01/07/17 10:00 Ecotrin - PO DAILY [facility] Clopidogrel Bisulfate 75 mg 01/07/17 10:00 Plavix - PO DAILY [facility] Collagenase 1 applic 01/07/17 10:00 Santyl - TP DAILY [facility] Divalproex Sodium 250 mg 01/07/17 10:00 Depakote Sprinkle Caps - PO DAILY [facility] Heparin Sodium (Porcine) 5,000 unit 01/06/17 22:00 01/07/17 05:28 Heparin - SQ 5,000 unit TID [facility] Administration Piperacillin Sod/Tazobactam Sod 50 mls @ 100 mls/hr 01/07/17 02:00 01/07/17 02: 39 Zosyn 3.375gm Ivpb (Pre-Docked) IVPB 100 mls/hr Q8H-IV [facility] Administration Protocol Insulin Aspart 1 vial 01/07/17 00:00 01/07/17 06:29 Novolog Vial Sliding Scale - SQ Not Given Q6HPO [facility] Protocol Levetiracetam 500 mg 01/07/17 10:00 Keppra Xr - PO DAILY [facility] Metronidazole 500 mg 01/06/17 22:00 01/07/17 05:27 Flagyl - PO 500 mg TID [facility] Administration Mirtazapine 7.5 mg 01/07/17 22:00 Remeron - PO HS [facility] Pantoprazole Sodium 40 mg 01/07/17 10:00 Protonix 40mg Ivpb (Pre-Docked) IVPB DAILY [facility] ASSESSMENT/PLAN: Patient is a 61 year old Male with past medical history of DM, HTN, COPD, & RUBY , came from [facility] (was there for rehab) presented to the ED with poor oral intake weakness failure to thrive and septic shock secondary to pneumonia. # Septic shock likely secondary to bilateral pneumonia- health care associated pneumonia- Resolving Not on pressors, leukocytosis improved, afebrile. IV Zosyn received for a total of 4 days, since patient refused few doses. Blood culture negative C. diff Ag Positive, toxic negative PO Metronizadole 500mg TID Day 3 # Pleural effusion-s/p chest tube placement Day 4 Overnight the output was 50mls, pending repeat CXR, to monitor the drain today and plan is to remove the chest tube. # Anxiety Xanax 0.25 mg PO Q8H PRN and Mirtazapine 7.5 mg PO HS started today. # Normocytic Anemia Received 1 prbc on 12/03/16, Hb improved post tranfusion Monitor H/H, transfuse PRBC if Hb < 7gm/dl or if actively bleeding # Acute Kidney Injury likely prerenal- Resolved. creatinine 1.4--->1.3 Avoid Nephrotoxic drugs Galindo discontinued yesterday. # CAD s/p CABG Continue aspirin and plavix # Acute on chronic exacerbation systolic and diastolic right and left sided CHF Doesn't look fluid overloaded I's and o's. Daily weight # Peripheral vascular disease Continue statin, aspirin and Plavix # COPD not in exacerbation Oxygen PRN and Nebs PRN # Seizures No seizure activity noted during hospitalization Continue depakote and keppra # DM HbA1c is pending ISS Finger stick glucose monitoring Watch for hypoglycemic episodes # Poor nutritional status not eating adequately, probably needs a PEG tube, but worrisome as patient might remove it as he removed central line twice. Will speak with the HCP regarding PEG tube placement. Would consider giving him Ensure. # FEN: IV NS @ 83mls/hr Electrolytes to be repeated tomorrow Diabetic diet # Prophylaxis For DVT- Heparin 5000 IU TID For GI: Not indicated # Code Status: Full Code # Dispo: Admitted in ICU. Stable to be transferred to Med-Surg- 8th floor since he has a chest tube. Illness, Investigation and Plan of care explained to the patient. He verbalized understanding. Case seen and discussed with Dr. Villatoro. Visit type - Emergency Visit Emergency Visit: Yes ED Registration Date: 01/01/17 Care time: The patient presented to the Emergency Department on the above date and was hospitalized for further evaluation of their emergent condition. - New Patient This patient is new to me today: No - Critical Care Critical Care patient: Yes Total Critical Care Time (in minutes): 35 Critical Care Statement: The care of this patient involved high complexity decision making to prevent further life threatening deterioration of the patient 's condition and/or to evalute & treat vital organ system(s) failure or risk of failure.
[2017-01-07] MEDS: PANTOPRAZOLE SODIUM 40 MG/100 ML PRE-DOCKED IVPB SCH (11:00)
[2017-01-07] MEDS: ALPRAZolam 0.25 MG TABLET PO PRN (11:36)
[2017-01-07] MEDS: CLOPIDOGREL BISULFATE 75 MG TABLET (FP) PO SCH (11:36)
[2017-01-07] MEDS: ASPIRIN COATED 81 MG TABLET.EC PO SCH (11:37)
[2017-01-07] MEDS: levETIRAcetam XR 500 MG TAB PO SCH (11:39)
[2017-01-07] MEDS: DIVALPROEX SODIUM 125 MG SPRINKLE CAPS (FP) PO SCH (11:39)
--- NOTE | 2017-01-07 12:06 | PN ---
Progress Note, Physician History of Present Illness: More awake and alert Has episodic R and L chest pain No c/o dyspnea/cough Refusing meds at times Breathing non-labored on RA Afebrile Hypotensive; off pressors One loose BM today - Current Medication List Current Medications: Active Medications Albuterol/Ipratropium (Duoneb -) 1 amp NEB TIDR [facility] Last Admin: 01/07/17 06:32 Dose: Not Given Alprazolam (Xanax -) 0.25 mg PO Q8H PRN PRN Reason: ANXIETY Last Admin: 01/07/17 11:36 Dose: 0.25 mg Aspirin (Ecotrin -) 81 mg PO DAILY [facility] Last Admin: 01/07/17 11:37 Dose: 81 mg Clopidogrel Bisulfate (Plavix -) 75 mg PO DAILY [facility] Last Admin: 01/07/17 11:36 Dose: 75 mg Collagenase (Santyl -) 1 applic TP DAILY [facility] Divalproex Sodium (Depakote Sprinkle Caps -) 250 mg PO DAILY [facility] Last Admin: 01/07/17 11:39 Dose: 250 mg Heparin Sodium (Porcine) (Heparin -) 5,000 unit SQ TID [facility] Last Admin: 01/07/17 05:28 Dose: 5,000 unit Piperacillin Sod/Tazobactam Sod (Zosyn 3.375gm Ivpb (Pre-Docked)) 50 mls @ 100 mls/hr IVPB Q8H-IV [facility] PRN Reason: Protocol Last Admin: 01/07/17 11:00 Dose: 100 mls/hr Insulin Aspart (Novolog Vial Sliding Scale -) 1 vial SQ Q6HPO [facility] PRN Reason: Protocol Last Admin: 01/07/17 06:29 Dose: Not Given Levetiracetam (Keppra Xr -) 500 mg PO DAILY [facility] Last Admin: 01/07/17 11:39 Dose: 500 mg Metronidazole (Flagyl -) 500 mg PO TID [facility] Last Admin: 01/07/17 05:27 Dose: 500 mg Mirtazapine (Remeron -) 7.5 mg PO HS [facility] Pantoprazole Sodium (Protonix 40mg Ivpb (Pre-Docked)) 40 mg IVPB DAILY [facility] Last Admin: 01/07/17 11:00 Dose: 40 mg - Objective Vital Signs: Vital Signs Temperature 98.4 F 01/07/17 08:00 Pulse Rate 82 01/07/17 08:00 Respiratory Rate 18 01/07/17 08:00 Blood Pressure 96/53 01/07/17 08:00 O2 Sat by Pulse Oximetry (%) 95 01/06/17 20:59 Constitutional: Yes: No Distress Eyes: Yes: Conjunctiva Clear Cardiovascular: Yes: Regular Rate and Rhythm, S1, S2 Respiratory: Yes: Diminished, Other (Chest tube R) Gastrointestinal: Yes: Normal Bowel Sounds, Soft. No: Tenderness Extremities: Yes: Other (L BKA Superficial ulcer, prepatellar area) Labs: CBC, BMP 01/07/17 05:15 01/07/17 05:15 INR, PTT INR 1.34 (0.82-1.09) H 01/07/17 05:15 Fibrinogen 375.0 mg/dL (238-498) 01/07/17 05:15 Assessment/Plan Bilateral pneumonia Sepsis secondary to pneumonia Pleural effusion s/p catheter insertion Thrombocytopenia Exacerbation COPD CKD Toxic-metabolic encephalopathy- improved C difficile Continue zosyn. Flagyl po
[2017-01-07] MEDS: COLLAGENASE CLOSTRIDIUM HIST. 30 GRAMS TUBE TP SCH (13:00)
--- NOTE | 2017-01-07 13:11 | PN ---
Teaching Attending Note Name of Resident: Lennie Roth ATTENDING PHYSICIAN STATEMENT I saw and evaluated the patient. I reviewed the resident's note and discussed the case with the resident. I agree with the resident's findings and plan as documented. SUBJECTIVE: Patient seen and examined in the ICU. Awake and responsive. Still with significant drainage from the pleural catheter. Intake & Output 01/04/17 01/05/17 01/06/17 01/07/17 23:59 23:59 23:59 23:59 Intake Total 2524 1710.5 1470 680 Output Total 2460 1800 2250 Balance 64 -89.5 -780 680 Weight 178 lb 177 lb 4.8 oz 176 lb 14.4 oz 173 lb 7 oz Last Vital Signs Temp Pulse Resp BP Pulse Ox 98.4 F 82 18 96/53 95 01/07/17 08:00 01/07/17 08:00 01/07/17 08:00 01/07/17 08:00 01/06/17 20:59 Active Medications Albuterol/Ipratropium (Duoneb -) 1 amp NEB TIDR [facility] Last Admin: 01/07/17 06:32 Dose: Not Given Alprazolam (Xanax -) 0.25 mg PO Q8H PRN PRN Reason: ANXIETY Last Admin: 01/07/17 11:36 Dose: 0.25 mg Aspirin (Ecotrin -) 81 mg PO DAILY [facility] Last Admin: 01/07/17 11:37 Dose: 81 mg Clopidogrel Bisulfate (Plavix -) 75 mg PO DAILY [facility] Last Admin: 01/07/17 11:36 Dose: 75 mg Collagenase (Santyl -) 1 applic TP DAILY [facility] Divalproex Sodium (Depakote Sprinkle Caps -) 250 mg PO DAILY [facility] Last Admin: 01/07/17 11:39 Dose: 250 mg Heparin Sodium (Porcine) (Heparin -) 5,000 unit SQ TID [facility] Last Admin: 01/07/17 05:28 Dose: 5,000 unit Piperacillin Sod/Tazobactam Sod (Zosyn 3.375gm Ivpb (Pre-Docked)) 50 mls @ 100 mls/hr IVPB Q8H-IV [facility] PRN Reason: Protocol Last Admin: 01/07/17 11:00 Dose: 100 mls/hr Insulin Aspart (Novolog Vial Sliding Scale -) 1 vial SQ Q6HPO [facility] PRN Reason: Protocol Last Admin: 01/07/17 06:29 Dose: Not Given Levetiracetam (Keppra Xr -) 500 mg PO DAILY [facility] Last Admin: 01/07/17 11:39 Dose: 500 mg Metronidazole (Flagyl -) 500 mg PO TID [facility] Last Admin: 01/07/17 05:27 Dose: 500 mg Mirtazapine (Remeron -) 7.5 mg PO HS [facility] Pantoprazole Sodium (Protonix 40mg Ivpb (Pre-Docked)) 40 mg IVPB DAILY [facility] Last Admin: 01/07/17 11:00 Dose: 40 mg Constitutional: Yes: Awake and responsive, confused Eyes: Yes: WNL (surgical L pupil), Other HENT: Yes: WNL, Atraumatic, Normocephalic Neck: Yes: WNL, Supple, Trachea Midline Cardiovascular: Yes: WNL, Regular Rate and Rhythm Respiratory: Yes: Scattered bilateral Rhonchi Gastrointestinal: Yes: WNL, Normal Bowel Sounds, Soft ...Rectal Exam: Yes: Deferred Renal/: Yes: WNL Breast(s): Yes: WNL Musculoskeletal: Yes: WNL Extremities: Yes: Amputation Edema: No Peripheral Pulses WNL: Yes Neurological: Yes: Poorly responsive Labs: Laboratory Results - last 24 hr 01/03/17 01/06/17 01/06/17 19:20 05:00 12:41 WBC RBC Hgb Hct MCV MCH MCHC RDW Plt Count MPV Retic Count INR PTT (Actin FS) Fibrinogen Sodium Potassium Chloride Carbon Dioxide Anion Gap BUN Creatinine Creat Clearance w eGFR POC Glucometer 181.26644 Random Glucose Hemoglobin A1c % 6.2 H D Calcium Phosphorus Magnesium Total Bilirubin AST ALT Alkaline Phosphatase LD Total Total Protein Albumin Vitamin B12 Serum Folate TSH Blood Type O POSITIVE Antibody Screen Negative Crossmatch See Detail 01/06/17 01/06/17 01/07/17 18:06 22:50 05:15 WBC 4.1 RBC 2.63 L Hgb 8.4 L Hct 25.0 L MCV 94.9 MCH 31.9 MCHC 33.6 RDW 18.3 H Plt Count 116 L MPV 9.1 Retic Count INR PTT (Actin FS) Fibrinogen Sodium Potassium Chloride Carbon Dioxide Anion Gap BUN Creatinine Creat Clearance w eGFR POC Glucometer 173.60240 179.85927 Random Glucose Hemoglobin A1c % Calcium Phosphorus Magnesium Total Bilirubin AST ALT Alkaline Phosphatase LD Total Total Protein Albumin Vitamin B12 Serum Folate TSH Blood Type Antibody Screen Crossmatch 01/07/17 01/07/17 01/07/17 05:15 05:15 05:15 WBC RBC Hgb Hct MCV MCH MCHC RDW Plt Count MPV Retic Count INR 1.34 H PTT (Actin FS) 36.5 H Fibrinogen 375.0 Sodium 144 Potassium 3.6 Chloride 105 Carbon Dioxide 34 H Anion Gap 5 L BUN 17 Creatinine 1.3 Creat Clearance w eGFR 55.75 POC Glucometer Random Glucose 99 D Hemoglobin A1c % Calcium 7.6 L Phosphorus 2.2 L Magnesium 1.9 Total Bilirubin 0.6 D AST 16 ALT 13 D Alkaline Phosphatase 67 LD Total 101 D Total Protein 4.5 L Albumin 1.8 L Vitamin B12 1087 H D Serum Folate 16 TSH 2.70 D Blood Type Antibody Screen Crossmatch 01/07/17 01/07/17 05:15 06:05 WBC RBC Hgb Hct MCV MCH MCHC RDW Plt Count MPV Retic Count 0.91 INR PTT (Actin FS) Fibrinogen Sodium Potassium Chloride Carbon Dioxide Anion Gap BUN Creatinine Creat Clearance w eGFR POC Glucometer 133.49668 Random Glucose Hemoglobin A1c % Calcium Phosphorus Magnesium Total Bilirubin AST ALT Alkaline Phosphatase LD Total Total Protein Albumin Vitamin B12 Serum Folate TSH Blood Type Antibody Screen Crossmatch Problem List - Problems (1) Pneumonia Code(s): J18.9 - PNEUMONIA, UNSPECIFIED ORGANISM Qualifiers: Pneumonia type: due to unspecified organism Laterality: bilateral Lung location: lower lobe of lung Qualified Code(s): J18.9 - Pneumonia, unspecified organism (2) CHF exacerbation Code(s): I50.9 - HEART FAILURE, UNSPECIFIED Qualifiers: Congestive heart failure type: unspecified congestive heart failure type Qualified Code(s): I50.9 - Heart failure, unspecified (3) 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 complication Code(s): E11.29 - TYPE 2 DIABETES MELLITUS W OTH DIABETIC KIDNEY COMPLICATION (4) RUBY (acute kidney injury) Code(s): N17.9 - ACUTE KIDNEY FAILURE, UNSPECIFIED (5) Acquired absence of left foot Code(s): Z89.432 - ACQUIRED ABSENCE OF LEFT FOOT (6) Acquired absence of right foot Code(s): Z89.431 - ACQUIRED ABSENCE OF RIGHT FOOT (7) CAD (coronary artery disease) Code(s): I25.10 - ATHSCL HEART DISEASE OF [place] CORONARY ARTERY W/O ANG PCTRS (8) Cellulitis and abscess of foot Code(s): L03.119 - CELLULITIS OF UNSPECIFIED PART OF LIMB L02.619 - CUTANEOUS ABSCESS OF UNSPECIFIED FOOT (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 Code(s): Z79.4 - MECHANICAL ARTIST (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 OF INSULIN Assessment/Plan Septic Shock due to PNA Toxic Metabolic Encephalopathy suspected (?) Hypercapnia DM HTN COPD RUBY Bilateral PNA (?) aspiration Acute Respiratory Failure PLAN: ABX O2 as needed Aspiration precautions PO as tolerated BD TX Glycemic control VTE prophylaxis Follow CT outputs and CXR Dr Villatoro Critical Care Time Total Critical Care Time: 35 Critical Care Statement: The care of this patient involved high complexity decision making to prevent further life threatening deterioration of the patient 's condition and/or to evalute & treat vital organ system(s) failure or risk of failure.
[2017-01-07] MEDS: oxyCODONE HCL 5 MG TABLET PO PRN (17:07)
[2017-01-07] MEDS: ACETAMINOPHEN 325 MG TABLET (FP) PO PRN (17:07)
[2017-01-07] MEDS: MIRTAZAPINE 15 MG TABLET (FP) PO SCH (22:08)
[2017-01-08] MEDS: PIPERACILLIN/TAZOB 3.375 GM 50 ML IVPB SCH ×2 (01:05→10:05)
[2017-01-08] MEDS: ALPRAZolam 0.25 MG TABLET PO PRN (01:32)
[2017-01-08] MEDS: metroNIDAZOLE 250 MG TABLET PO SCH ×3 (06:29→21:27)
[2017-01-08] MEDS: INSULIN SLIDING SCALE (NOVOLOG) 1 VIAL SQ SCH ×4 (06:30→17:20)
[2017-01-08] MEDS: HEPARIN NA (PORCINE) 5,000 UNITS/ML 1ML VIAL SQ SCH ×3 (06:30→21:28)
[2017-01-08] MEDS: ALBUTEROL SO4 2.5/IPRATROPIUM 0.5 INH SOL 3 ML VIAL.NEB. NEB SCH ×3 (06:53→22:31)
--- NOTE | 2017-01-08 08:37 | PN ---
Progress Note, Physician Chief Complaint: more alert Right chest tube - Current Medication List Current Medications: Active Medications Acetaminophen (Tylenol -) 650 mg PO Q12H PRN PRN Reason: PAIN LEVEL 6-10 Last Admin: 01/07/17 17:07 Dose: 650 mg Albuterol/Ipratropium (Duoneb -) 1 amp NEB TIDR [facility] Last Admin: 01/08/17 06:53 Dose: Not Given Alprazolam (Xanax -) 0.25 mg PO Q8H PRN PRN Reason: ANXIETY Last Admin: 01/08/17 01:32 Dose: 0.25 mg Aspirin (Ecotrin -) 81 mg PO DAILY [facility] Last Admin: 01/07/17 11:37 Dose: 81 mg Clopidogrel Bisulfate (Plavix -) 75 mg PO DAILY [facility] Last Admin: 01/07/17 11:36 Dose: 75 mg Collagenase (Santyl -) 1 applic TP DAILY [facility] Last Admin: 01/07/17 13:00 Dose: 1 applic Divalproex Sodium (Depakote Sprinkle Caps -) 250 mg PO DAILY [facility] Last Admin: 01/07/17 11:39 Dose: 250 mg Heparin Sodium (Porcine) (Heparin -) 5,000 unit SQ TID [facility] Last Admin: 01/08/17 06:30 Dose: 5,000 unit Piperacillin Sod/Tazobactam Sod (Zosyn 3.375gm Ivpb (Pre-Docked)) 50 mls @ 100 mls/hr IVPB Q8H-IV [facility] PRN Reason: Protocol Last Admin: 01/08/17 01:05 Dose: 100 mls/hr Insulin Aspart (Novolog Vial Sliding Scale -) 1 vial SQ Q6HPO [facility] PRN Reason: Protocol Last Admin: 01/08/17 06:30 Dose: Not Given Levetiracetam (Keppra Xr -) 500 mg PO DAILY [facility] Last Admin: 01/07/17 11:39 Dose: 500 mg Metronidazole (Flagyl -) 500 mg PO TID [facility] Last Admin: 01/08/17 06:29 Dose: 500 mg Mirtazapine (Remeron -) 7.5 mg PO HS [facility] Last Admin: 01/07/17 22:08 Dose: 7.5 mg Oxycodone HCl (Roxicodone -) 10 mg PO Q12H PRN PRN Reason: PAIN LEVEL 6-10 Last Admin: 01/07/17 17:07 Dose: 10 mg Pantoprazole Sodium (Protonix 40mg Ivpb (Pre-Docked)) 40 mg IVPB DAILY [facility] Last Admin: 01/07/17 11:00 Dose: 40 mg - Objective Vital Signs: Vital Signs Temperature 98.2 F 01/08/17 06:00 Pulse Rate 84 01/08/17 06:00 Respiratory Rate 20 01/08/17 06:00 Blood Pressure 97/60 01/08/17 06:00 O2 Sat by Pulse Oximetry (%) 94 L 01/07/17 21:00 Constitutional: Yes: Calm Eyes: Yes: Conjunctiva Clear Cardiovascular: Yes: Regular Rate and Rhythm Respiratory: Yes: CTA Bilaterally Gastrointestinal: Yes: Soft Edema: No Labs: CBC, BMP 01/07/17 05:15 01/07/17 05:15 INR, PTT INR 1.34 (0.82-1.09) H 01/07/17 05:15 Fibrinogen 375.0 mg/dL (238-498) 01/07/17 05:15 Laboratory Tests 01/07/17 05:15 WBC 4.1 Hgb 8.4 L Plt Count 116 L - ....Imaging Chest X-ray: Report Reviewed Assessment/Plan Assessment/Plan 61 year old man h/o COPD, PAD s/o amputations, PNA, DM, CKD, CAD s/p OK, ischemic CM, Chronic systolic CHF admitted with ams, lethargy, dec appettite, presumed sepsis. Sepsis-presumed secondary to PNA and C. diff s/p chest tube -Receiving Abx -relative hypotension likely due to volume depletion -cont to hold lasix in setting of intravascular depletion, volume status seems to be improving gradually CAD h/o OK, ischemic cardiomyopathy with chronic systolic CHF -intravascularly depleted, holding lasix -ASA was resumed as well as Plavix -plan to re-introduce coreg when bp tolerates -hold off on CRISTHIAN-I/ARB given CJ on CKD
--- NOTE | 2017-01-08 09:05 | PN ---
Progress Note, Physician History of Present Illness: AWAKE PULLED IV OUT REFUSING AM MEDS,LABS AND CXR--D/W PT CONTINUES TO REFUSE POOR APETITE--PEG TUBE D/W PT--WANTS TO THINK ABOUT IT - Current Medication List Current Medications: Active Medications Acetaminophen (Tylenol -) 650 mg PO Q12H PRN PRN Reason: PAIN LEVEL 6-10 Last Admin: 01/07/17 17:07 Dose: 650 mg Albuterol/Ipratropium (Duoneb -) 1 amp NEB TIDR [facility] Last Admin: 01/08/17 06:53 Dose: Not Given Alprazolam (Xanax -) 0.25 mg PO Q8H PRN PRN Reason: ANXIETY Last Admin: 01/08/17 01:32 Dose: 0.25 mg Aspirin (Ecotrin -) 81 mg PO DAILY [facility] Last Admin: 01/07/17 11:37 Dose: 81 mg Clopidogrel Bisulfate (Plavix -) 75 mg PO DAILY [facility] Last Admin: 01/07/17 11:36 Dose: 75 mg Collagenase (Santyl -) 1 applic TP DAILY [facility] Last Admin: 01/07/17 13:00 Dose: 1 applic Divalproex Sodium (Depakote Sprinkle Caps -) 250 mg PO DAILY [facility] Last Admin: 01/07/17 11:39 Dose: 250 mg Heparin Sodium (Porcine) (Heparin -) 5,000 unit SQ TID [facility] Last Admin: 01/08/17 06:30 Dose: 5,000 unit Piperacillin Sod/Tazobactam Sod (Zosyn 3.375gm Ivpb (Pre-Docked)) 50 mls @ 100 mls/hr IVPB Q8H-IV [facility] PRN Reason: Protocol Last Admin: 01/08/17 01:05 Dose: 100 mls/hr Insulin Aspart (Novolog Vial Sliding Scale -) 1 vial SQ Q6HPO [facility] PRN Reason: Protocol Last Admin: 01/08/17 06:30 Dose: Not Given Levetiracetam (Keppra Xr -) 500 mg PO DAILY [facility] Last Admin: 01/07/17 11:39 Dose: 500 mg Metronidazole (Flagyl -) 500 mg PO TID [facility] Last Admin: 01/08/17 06:29 Dose: 500 mg Mirtazapine (Remeron -) 7.5 mg PO HS [facility] Last Admin: 01/07/17 22:08 Dose: 7.5 mg Oxycodone HCl (Roxicodone -) 10 mg PO Q12H PRN PRN Reason: PAIN LEVEL 6-10 Last Admin: 01/07/17 17:07 Dose: 10 mg Pantoprazole Sodium (Protonix 40mg Ivpb (Pre-Docked)) 40 mg IVPB DAILY [facility] Last Admin: 01/07/17 11:00 Dose: 40 mg - Objective Vital Signs: Vital Signs Temperature 98.2 F 01/08/17 06:00 Pulse Rate 84 01/08/17 06:00 Respiratory Rate 20 01/08/17 06:00 Blood Pressure 97/60 01/08/17 06:00 O2 Sat by Pulse Oximetry (%) 94 L 01/07/17 21:00 Cardiovascular: Yes: S1, S2 Respiratory: Yes: Regular, CTA Bilaterally Gastrointestinal: Yes: Normal Bowel Sounds, Soft, Tenderness Extremities: Yes: Amputation Edema: No Labs: CBC, BMP 01/07/17 05:15 01/07/17 05:15 INR, PTT INR 1.34 (0.82-1.09) H 01/07/17 05:15 Fibrinogen 375.0 mg/dL (238-498) 01/07/17 05:15 Problem List - Problems (1) CHF exacerbation Assessment/Plan: poor lv function cardio consult noted off diuretics Code(s): I50.9 - HEART FAILURE, UNSPECIFIED Qualifiers: Congestive heart failure type: unspecified congestive heart failure type Qualified Code(s): I50.9 - Heart failure, unspecified (2) Pneumonia of both lower lobes Assessment/Plan: iv abx per id id and pulm consult on board follow cxr--when pt agrees follow labs--when pt agrees follow cultures Code(s): J18.9 - PNEUMONIA, UNSPECIFIED ORGANISM Qualifiers: Pneumonia type: aspiration pneumonia Aspiration pneumonia type: unspecified Qualified Code(s): J69.0 - Pneumonitis due to inhalation of food and vomit (3) 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 complication Assessment/Plan: bgm monitor Code(s): E11.29 - TYPE 2 DIABETES MELLITUS W OTH DIABETIC KIDNEY COMPLICATION (4) CKD (chronic kidney disease) Assessment/Plan: Laboratory Tests 01/02/17 05:20 Potassium 5.5 H BUN 29 H Creatinine 1.7 H Code(s): N18.9 - CHRONIC KIDNEY DISEASE, UNSPECIFIED Qualifiers: Chronic kidney disease stage: stage 3 (moderate) Qualified Code(s): N18.3 - Chronic kidney disease, stage 3 (moderate) (5) Sepsis Code(s): A41.9 - SEPSIS, UNSPECIFIED ORGANISM Qualifiers: Sepsis type: sepsis due to unspecified organism Qualified Code(s): A41.9 - Sepsis, unspecified organism (6) Pleural effusion Assessment/Plan: chest tube in place PER PULM Code(s): J90 - PLEURAL EFFUSION, NOT ELSEWHERE CLASSIFIED (7) Appetite loss Assessment/Plan: PEG D/W PT HE WILL CONSIDER DIETARY Code(s): R63.0 - ANOREXIA (8) Anxiety Assessment/Plan: REMERON XANAX Code(s): F41.9 - ANXIETY DISORDER, UNSPECIFIED (9) Clostridium difficile diarrhea Assessment/Plan: on flagyl add vanco Code(s): A04.7 - ENTEROCOLITIS DUE TO CLOSTRIDIUM DIFFICILE
[2017-01-08] MEDS ORDERED: PIPERACILLIN/TAZOBACTAM 3.375 GM VIAL IVPB ONE ×3 (10:02→21:02)
[2017-01-08] MEDS ORDERED: DEXTROSE 5%-WATER - 50 ML IVPB ONE ×3 (10:02→21:03)
[2017-01-08] MEDS: CLOPIDOGREL BISULFATE 75 MG TABLET (FP) PO SCH (10:06)
[2017-01-08] MEDS: DIVALPROEX SODIUM 125 MG SPRINKLE CAPS (FP) PO SCH (10:06)
[2017-01-08] MEDS: ASPIRIN COATED 81 MG TABLET.EC PO SCH (10:06)
[2017-01-08] MEDS: levETIRAcetam XR 500 MG TAB PO SCH (10:07)
[2017-01-08] MEDS: PIPERACILLIN/TAZOB 3.375 GM 3.375 GM in DEXTROSE 5%-WATER - 50 ML IVPB SCH ×2 (10:07→17:20)
[2017-01-08] MEDS ORDERED: SODIUM CHLORIDE 100 ML IVPB ONE (11:33)
[2017-01-08] MEDS ORDERED: PANTOPRAZOLE SODIUM 40 MG VIAL ONE (11:33)
[2017-01-08] MEDS: COLLAGENASE CLOSTRIDIUM HIST. 30 GRAMS TUBE TP SCH (12:06)
[2017-01-08] MEDS: PANTOPRAZOLE SODIUM 40 MG in SODIUM CHLORIDE 100 ML IVPB SCH (12:06)
[2017-01-08] MEDS: VANCOMYCIN 250 MG/5 ML ORAL SOLUTION PO SCH ×2 (12:08→17:20)
[2017-01-08] MEDS: PANTOPRAZOLE SODIUM 40 MG/100 ML PRE-DOCKED IVPB SCH (13:00)
--- NOTE | 2017-01-08 15:07 | PN ---
Progress Note, Physician History of Present Illness: pulmonary no distress ,-sob,awake. R chest tube draining 250cc - Current Medication List Current Medications: Active Medications Acetaminophen (Tylenol -) 650 mg PO Q12H PRN PRN Reason: PAIN LEVEL 6-10 Last Admin: 01/07/17 17:07 Dose: 650 mg Albuterol/Ipratropium (Duoneb -) 1 amp NEB TIDR [facility] Last Admin: 01/08/17 06:53 Dose: Not Given Alprazolam (Xanax -) 0.25 mg PO Q8H PRN PRN Reason: ANXIETY Last Admin: 01/08/17 01:32 Dose: 0.25 mg Aspirin (Ecotrin -) 81 mg PO DAILY [facility] Last Admin: 01/08/17 10:06 Dose: 81 mg Clopidogrel Bisulfate (Plavix -) 75 mg PO DAILY [facility] Last Admin: 01/08/17 10:06 Dose: 75 mg Collagenase (Santyl -) 1 applic TP DAILY [facility] Last Admin: 01/08/17 12:06 Dose: 1 applic Divalproex Sodium (Depakote Sprinkle Caps -) 250 mg PO DAILY [facility] Last Admin: 01/08/17 10:06 Dose: 250 mg Heparin Sodium (Porcine) (Heparin -) 5,000 unit SQ TID [facility] Last Admin: 01/08/17 13:23 Dose: 5,000 unit Piperacillin Sod/Tazobactam (Sod 3.375 gm/ Dextrose) 50 mls @ 100 mls/hr IVPB Q8H-IV [facility] Last Admin: 01/08/17 10:07 Dose: 100 mls/hr Pantoprazole Sodium 40 mg/ (Sodium Chloride) 100 mls @ 200 mls/hr IVPB DAILY [facility] Last Admin: 01/08/17 12:06 Dose: 200 mls/hr Insulin Aspart (Novolog Vial Sliding Scale -) 1 vial SQ Q6HPO [facility] PRN Reason: Protocol Last Admin: 01/08/17 12:06 Dose: Not Given Levetiracetam (Keppra Xr -) 500 mg PO DAILY [facility] Last Admin: 01/08/17 10:07 Dose: 500 mg Metronidazole (Flagyl -) 500 mg PO TID [facility] Last Admin: 01/08/17 13:23 Dose: 500 mg Mirtazapine (Remeron -) 7.5 mg PO HS [facility] Last Admin: 01/07/17 22:08 Dose: 7.5 mg Oxycodone HCl (Roxicodone -) 10 mg PO Q12H PRN PRN Reason: PAIN LEVEL 6-10 Last Admin: 01/07/17 17:07 Dose: 10 mg Vancomycin HCl (Vancomycin Oral Solution) 250 mg PO Q6HPO [facility] Last Admin: 01/08/17 12:08 Dose: 250 mg - Objective Vital Signs: Vital Signs Temperature 98.7 F 01/08/17 10:00 Pulse Rate 82 01/08/17 10:00 Respiratory Rate 20 01/08/17 10:00 Blood Pressure 102/64 01/08/17 10:00 O2 Sat by Pulse Oximetry (%) 94 L 01/07/17 21:00 Constitutional: Yes: Calm, Thin Eyes: Yes: WNL HENT: Yes: WNL Neck: Yes: WNL Cardiovascular: Yes: Regular Rate and Rhythm, S1, S2 Respiratory: Yes: Diminished (poor inspiratory) Gastrointestinal: Yes: Normal Bowel Sounds, Soft Extremities: Yes: Amputation Labs: CBC, BMP 01/08/17 09:28 01/08/17 09:28 INR, PTT INR 1.34 (0.82-1.09) H 01/07/17 05:15 Fibrinogen 375.0 mg/dL (238-498) 01/07/17 05:15 Assessment/Plan - Problems (1) Pneumonia Code(s): J18.9 - PNEUMONIA, UNSPECIFIED ORGANISM Qualifiers: Pneumonia type: due to unspecified organism Laterality: bilateral Lung location: lower lobe of lung Qualified Code(s): J18.9 - Pneumonia, unspecified organism (2) CHF exacerbation Code(s): I50.9 - HEART FAILURE, UNSPECIFIED Qualifiers: Congestive heart failure type: unspecified congestive heart failure type Qualified Code(s): I50.9 - Heart failure, unspecified (3) 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 complication Code(s): E11.29 - TYPE 2 DIABETES MELLITUS W OTH DIABETIC KIDNEY COMPLICATION (4) RUBY (acute kidney injury) Code(s): N17.9 - ACUTE KIDNEY FAILURE, UNSPECIFIED (5) Acquired absence of left foot Code(s): Z89.432 - ACQUIRED ABSENCE OF LEFT FOOT (6) Acquired absence of right foot Code(s): Z89.431 - ACQUIRED ABSENCE OF RIGHT FOOT (7) CAD (coronary artery disease) Code(s): I25.10 - ATHSCL HEART DISEASE OF [place] CORONARY ARTERY W/O ANG PCTRS (8) Cellulitis and abscess of foot Code(s): L03.119 - CELLULITIS OF UNSPECIFIED PART OF LIMB L02.619 - CUTANEOUS ABSCESS OF UNSPECIFIED FOOT (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
--- NOTE | 2017-01-08 16:29 | PN ---
Progress Note (short form) - Note Progress Note: Was seen on 01/09. Patient feels a little better,a bit pleasant than before. Chart reviewed in detail. O/E: NAD still with chest tube drainage significant CTA b/l RRR Amputated LE , an ulcer seen on the left knee. Last Vital Signs Temp Pulse Resp BP Pulse Ox 98.8 F 97 H 20 107/64 98 01/09/17 18:00 01/09/17 18:00 01/09/17 21:00 01/09/17 18:00 01/09/17 21:00 CBC, BMP 01/09/17 06:00 01/09/17 06:00 Current Medications Generic Name Dose Route Start Last Admin Trade Name Freq PRN Reason Stop Dose Admin Acetaminophen 650 mg 01/07/17 16:45 01/07/17 17:07 Tylenol - PO 650 mg Q12H PRN Administration PAIN LEVEL 6-10 Albuterol/Ipratropium 1 amp 01/06/17 22:00 01/10/17 06:41 Duoneb - NEB Not Given TIDR [facility] Aspirin 81 mg 01/07/17 10:00 01/09/17 13:56 Ecotrin - PO 81 mg DAILY [facility] Administration Clopidogrel Bisulfate 75 mg 01/07/17 10:00 01/09/17 13:56 Plavix - PO 75 mg DAILY [facility] Administration Collagenase 1 applic 01/07/17 10:00 01/09/17 11:08 Santyl - TP 1 applic DAILY [facility] Administration Divalproex Sodium 250 mg 01/07/17 10:00 01/09/17 11:46 Depakote Sprinkle Caps - PO Not Given DAILY [facility] Heparin Sodium (Porcine) 5,000 unit 01/06/17 22:00 01/10/17 06:28 Heparin - SQ Not Given TID [facility] Pantoprazole Sodium 40 mg/ 100 mls @ 200 mls/hr 01/08/17 11:15 01/09/17 11:06 Sodium Chloride IVPB 200 mls/hr DAILY [facility] Administration Insulin Aspart 1 vial 01/07/17 00:00 01/10/17 06:28 Novolog Vial Sliding Scale - SQ Not Given Q6HPO [facility] Protocol Levetiracetam 500 mg 01/07/17 10:00 01/09/17 11:07 Keppra Xr - PO 500 mg DAILY [facility] Administration Mirtazapine 7.5 mg 01/07/17 22:00 01/09/17 22:53 Remeron - PO 7.5 mg HS [facility] Administration Ondansetron HCl 4 mg 01/09/17 14:00 01/09/17 17:47 Zofran Injection IVPB 4 mg Q8H PRN Administration NAUSEA AND/OR VOMITING Oxycodone HCl 10 mg 01/07/17 16:45 01/09/17 11:07 Roxicodone - PO 10 mg Q12H PRN Administration PAIN LEVEL 6-10 Assessment/Plan: Normocytic anemia Thrombocytopenia PNA , s/p chest tube placement C diff RUBY Prolonged PTT Thrombocytopenia, improving, likely etiology sepsis/abx, induced, HIT ab negative, thus far w/u negative, mild splenomegaly. HYACINTH normal. Normocytic anemia, iron studies reviewed. Likely ACD/ACI in the setting of CKD. Continue to monitor. Elevated PTT- pending SAMARIA and LA. Abx per ID. PNA/Chest tube per Pulm Will follow Problem List - Problems (1) Thrombocytopenia Code(s): D69.6 - THROMBOCYTOPENIA, UNSPECIFIED (2) Anemia Code(s): D64.9 - ANEMIA, UNSPECIFIED Qualifiers: Anemia type: unspecified type Qualified Code(s): D64.9 - Anemia, unspecified (3) Pneumonia of both lower lobes Code(s): J18.9 - PNEUMONIA, UNSPECIFIED ORGANISM Qualifiers: Pneumonia type: aspiration pneumonia Aspiration pneumonia type: unspecified Qualified Code(s): J69.0 - Pneumonitis due to inhalation of food and vomit (4) Respiratory failure Code(s): J96.90 - RESPIRATORY FAILURE, UNSP, UNSP W HYPOXIA OR HYPERCAPNIA Qualifiers: Chronicity: acute Respiratory failure complication: hypoxia and hypercapnia Qualified Code(s): J96.01 - Acute respiratory failure with hypoxia (5) RUBY (acute kidney injury) Code(s): N17.9 - ACUTE KIDNEY FAILURE, UNSPECIFIED
[2017-01-08] MEDS: MIRTAZAPINE 15 MG TABLET (FP) PO SCH (21:28)
[2017-01-08] MEDS: oxyCODONE HCL 5 MG TABLET PO PRN (23:30)
[2017-01-09 00:09] LABS: ALBUMIN 2.2 g/dL (2.9-4.4); ALPHA-1-GLOBULIN 0.3 g/dL (0.0-0.4); BETA GLOBULIN 0.6 g/dL (0.7-1.3); GLOBULIN, TOTAL 2.4 g/dL (2.2-3.9); M-SPIKE Not Observed g/dL (Not Observed); TOTAL PROTEIN 4.6 g/dL (6.0-8.5)
[2017-01-09] MEDS: VANCOMYCIN 250 MG/5 ML ORAL SOLUTION PO SCH ×2 (00:44→06:26)
[2017-01-09] MEDS: INSULIN SLIDING SCALE (NOVOLOG) 1 VIAL SQ SCH ×4 (00:45→17:51)
[2017-01-09] MEDS: ALPRAZolam 0.25 MG TABLET PO PRN ×2 (01:04→22:58)
[2017-01-09] MEDS: PIPERACILLIN/TAZOB 3.375 GM 3.375 GM in DEXTROSE 5%-WATER - 50 ML IVPB SCH (01:04)
[2017-01-09] MEDS: metroNIDAZOLE 250 MG TABLET PO SCH (06:00)
[2017-01-09] MEDS: HEPARIN NA (PORCINE) 5,000 UNITS/ML 1ML VIAL SQ SCH ×3 (06:26→22:57)
[2017-01-09] MEDS: ALBUTEROL SO4 2.5/IPRATROPIUM 0.5 INH SOL 3 ML VIAL.NEB. NEB SCH ×3 (06:57→22:17)
[2017-01-09 07:52] LABS: BASOPHIL 1.1 % (0-2.0); EOSINOPHIL 5.2 % (0-4.5); MCH 31.8 pg (25.7-33.7); MCHC 32.9 g/dl (32.0-35.9); MEAN CELL VOLUME 96.6 fl (80-96); MEAN PLT VOLUME 9.2 fl (7.5-11.1); NEUTROPHILS 69.3 % (42.8-82.8); PLATELET COUNT 132 K/MM3 (134-434); WHITE BLOOD COUNT 5.8 K/mm3 (4.0-10.0)
[2017-01-09 08:36] LABS: ALBUMIN 2.1 g/dl (3.4-5.0); ALK PHOS 73 U/L (45-117); ANION GAP 6 (8-16); BILIRUBIN,TOTAL 0.7 mg/dL (0.2-1.0); CALCIUM 8.1 mg/dL (8.5-10.1); CO2 31 mmol/L (21-32); CREATININE 1.5 mg/dL (0.7-1.3); GLUCOSE,RANDOM 66 mg/dL (74-106); SGOT/AST 14 U/L (15-37); SGPT/ALT 10 U/L (12-78); TOT PROT 5.3 g/dl (6.4-8.2)
--- NOTE | 2017-01-09 08:55 | PN ---
Progress Note, Physician Chief Complaint: ID Zosyn day 8 therapy Metronidazole and oral vancom now No diarrhea - Current Medication List Current Medications: Active Medications Acetaminophen (Tylenol -) 650 mg PO Q12H PRN PRN Reason: PAIN LEVEL 6-10 Last Admin: 01/07/17 17:07 Dose: 650 mg Albuterol/Ipratropium (Duoneb -) 1 amp NEB TIDR [facility] Last Admin: 01/09/17 06:57 Dose: Not Given Alprazolam (Xanax -) 0.25 mg PO Q8H PRN PRN Reason: ANXIETY Last Admin: 01/09/17 01:04 Dose: 0.25 mg Aspirin (Ecotrin -) 81 mg PO DAILY [facility] Last Admin: 01/08/17 10:06 Dose: 81 mg Clopidogrel Bisulfate (Plavix -) 75 mg PO DAILY [facility] Last Admin: 01/08/17 10:06 Dose: 75 mg Collagenase (Santyl -) 1 applic TP DAILY [facility] Last Admin: 01/08/17 12:06 Dose: 1 applic Divalproex Sodium (Depakote Sprinkle Caps -) 250 mg PO DAILY [facility] Last Admin: 01/08/17 10:06 Dose: 250 mg Heparin Sodium (Porcine) (Heparin -) 5,000 unit SQ TID [facility] Last Admin: 01/09/17 06:26 Dose: 5,000 unit Pantoprazole Sodium 40 mg/ (Sodium Chloride) 100 mls @ 200 mls/hr IVPB DAILY [facility] Last Admin: 01/08/17 12:06 Dose: 200 mls/hr Insulin Aspart (Novolog Vial Sliding Scale -) 1 vial SQ Q6HPO [facility] PRN Reason: Protocol Last Admin: 01/09/17 00:45 Dose: Not Given Levetiracetam (Keppra Xr -) 500 mg PO DAILY [facility] Last Admin: 01/08/17 10:07 Dose: 500 mg Metronidazole (Flagyl -) 500 mg PO TID [facility] Last Admin: 01/09/17 06:00 Dose: 500 mg Mirtazapine (Remeron -) 7.5 mg PO HS [facility] Last Admin: 01/08/17 21:28 Dose: 7.5 mg Oxycodone HCl (Roxicodone -) 10 mg PO Q12H PRN PRN Reason: PAIN LEVEL 6-10 Last Admin: 01/08/17 23:30 Dose: 10 mg Vancomycin HCl (Vancomycin Oral Solution) 250 mg PO Q6HPO [facility] Last Admin: 01/09/17 06:26 Dose: Not Given - Objective Vital Signs: Vital Signs Temperature 97.5 F L 01/09/17 06:00 Pulse Rate 94 H 01/09/17 06:00 Respiratory Rate 20 01/09/17 06:00 Blood Pressure 110/58 01/09/17 06:00 O2 Sat by Pulse Oximetry (%) 96 01/08/17 21:00 Constitutional: Yes: No Distress, Cachectic HENT: Yes: WNL, Atraumatic Neck: Yes: WNL, Supple Respiratory: Yes: WNL, Regular, CTA Bilaterally, Other (Chest tube) Gastrointestinal: Yes: WNL, Normal Bowel Sounds, Soft Extremities: Yes: Amputation Labs: CBC, BMP 01/09/17 06:00 01/09/17 06:00 INR, PTT INR 1.34 (0.82-1.09) H 01/07/17 05:15 Fibrinogen 375.0 mg/dL (238-498) 01/07/17 05:15 Assessment/Plan Microbiology 01/03/17 17:00 Stool Clostridium difficile Antigen (KOFFI) - Final 01/03/17 17:00 Stool Clostridium difficile Toxin Assay - Final 01/02/17 16:00 Pleural Fluid Gram Stain - Final 01/02/17 16:00 Pleural Fluid Anaerobic Culture - Final NO GROWTH OF AEROBIC ORGANISMS AFTER 48 HOURS INCUBATION NO ANAEROBES WERE ISOLATED 01/02/17 16:00 Pleural Fluid MARIA D Preparation - Preliminary 01/02/17 16:00 Pleural Fluid Fungal Culture - Preliminary 01/02/17 00:40 Blood - Central Line Blood Culture - Preliminary NO GROWTH OBTAINED AFTER 96 HOURS, INCUBATION TO CONTINUE FOR 1 DAYS. 01/02/17 00:40 Blood - Central Line Blood Culture - Preliminary NO GROWTH OBTAINED AFTER 96 HOURS, INCUBATION TO CONTINUE FOR 1 DAYS. 01/01/17 19:55 Blood - Peripheral Venous Blood Culture - Preliminary NO GROWTH OBTAINED AFTER 96 HOURS, INCUBATION TO CONTINUE FOR 1 DAYS. 01/01/17 19:55 Blood - Peripheral Venous Blood Culture - Preliminary NO GROWTH OBTAINED AFTER 96 HOURS, INCUBATION TO CONTINUE FOR 1 DAYS. Laboratory Tests 01/09/17 01/09/17 06:00 06:00 WBC 5.8 D Hgb 9.9 L D Hct 30.0 L D Plt Count 132 L BUN 19 H Creatinine 1.5 H Creat Clearance w eGFR 47.27 Assessment Pneumonia pleural effusion C diff Ag positive Plan Stop Zosyn I would stop all treatment for C diff he has no diarrhea Ag pos only Binta DAVIDSON
--- NOTE | 2017-01-09 10:14 | PN ---
Progress Note, Physician Chief Complaint: FTT,Sepsis, Anemia, cdiff, was refusing oral medications History of Present Illness: NAD, in bed - Current Medication List Current Medications: Active Medications Acetaminophen (Tylenol -) 650 mg PO Q12H PRN PRN Reason: PAIN LEVEL 6-10 Last Admin: 01/07/17 17:07 Dose: 650 mg Albuterol/Ipratropium (Duoneb -) 1 amp NEB TIDR [facility] Last Admin: 01/09/17 06:57 Dose: Not Given Alprazolam (Xanax -) 0.25 mg PO Q8H PRN PRN Reason: ANXIETY Last Admin: 01/09/17 01:04 Dose: 0.25 mg Aspirin (Ecotrin -) 81 mg PO DAILY [facility] Last Admin: 01/08/17 10:06 Dose: 81 mg Clopidogrel Bisulfate (Plavix -) 75 mg PO DAILY [facility] Last Admin: 01/08/17 10:06 Dose: 75 mg Collagenase (Santyl -) 1 applic TP DAILY [facility] Last Admin: 01/08/17 12:06 Dose: 1 applic Divalproex Sodium (Depakote Sprinkle Caps -) 250 mg PO DAILY [facility] Last Admin: 01/08/17 10:06 Dose: 250 mg Heparin Sodium (Porcine) (Heparin -) 5,000 unit SQ TID [facility] Last Admin: 01/09/17 06:26 Dose: 5,000 unit Pantoprazole Sodium 40 mg/ (Sodium Chloride) 100 mls @ 200 mls/hr IVPB DAILY [facility] Last Admin: 01/08/17 12:06 Dose: 200 mls/hr Insulin Aspart (Novolog Vial Sliding Scale -) 1 vial SQ Q6HPO [facility] PRN Reason: Protocol Last Admin: 01/09/17 00:45 Dose: Not Given Levetiracetam (Keppra Xr -) 500 mg PO DAILY [facility] Last Admin: 01/08/17 10:07 Dose: 500 mg Mirtazapine (Remeron -) 7.5 mg PO HS [facility] Last Admin: 01/08/17 21:28 Dose: 7.5 mg Oxycodone HCl (Roxicodone -) 10 mg PO Q12H PRN PRN Reason: PAIN LEVEL 6-10 Last Admin: 01/08/17 23:30 Dose: 10 mg - Objective Vital Signs: Vital Signs Temperature 97.5 F L 0810/17 06:00 Pulse Rate 94 H 01/09/17 06:00 Respiratory Rate 20 01/09/17 06:00 Blood Pressure 110/58 01/09/17 06:00 O2 Sat by Pulse Oximetry (%) 96 01/08/17 21:00 Constitutional: Yes: Well Nourished, No Distress, Calm Cardiovascular: Yes: Regular Rate and Rhythm Respiratory: Yes: Regular Gastrointestinal: Yes: Normal Bowel Sounds Musculoskeletal: Yes: WNL Extremities: Yes: Amputation (LLE) Neurological: Yes: Alert, Oriented Psychiatric: Yes: Alert Labs: CBC, BMP 01/09/17 06:00 01/09/17 06:00 INR, PTT INR 1.34 (0.82-1.09) H 01/07/17 05:15 Fibrinogen 375.0 mg/dL (238-498) 01/07/17 05:15 Problem List - Problems (1) CHF exacerbation Assessment/Plan: Pulmonary and cardiology consult repeat CXR shows right pig tail intact and left pleural effusion Code(s): I50.9 - HEART FAILURE, UNSPECIFIED Qualifiers: Congestive heart failure type: unspecified congestive heart failure type Qualified Code(s): I50.9 - Heart failure, unspecified (2) Pneumonia of both lower lobes Assessment/Plan: switched to PO abx nebulizer txs Code(s): J18.9 - PNEUMONIA, UNSPECIFIED ORGANISM Qualifiers: Pneumonia type: aspiration pneumonia Aspiration pneumonia type: unspecified Qualified Code(s): J69.0 - Pneumonitis due to inhalation of food and vomit (3) 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 complication Code(s): E11.29 - TYPE 2 DIABETES MELLITUS W OTH DIABETIC KIDNEY COMPLICATION (4) Acute kidney failure Assessment/Plan: -secondary to sepsis, dehydration stable at this time continue to monitor Code(s): N17.9 - ACUTE KIDNEY FAILURE, UNSPECIFIED (5) Depressed Code(s): F32.9 - MAJOR DEPRESSIVE DISORDER, SINGLE EPISODE, UNSPECIFIED Qualifiers: Depression Type: major depressive disorder Major depression recurrence : single episode Active/Remission status: currently active Major depression episode severity: severe Psychotic features: without psychotic features Qualified Code(s): F32.2 - Major depressive disorder, single episode, severe without psychotic features (6) Anemia Assessment/Plan: -H/H improved -continue to monitor labs -stool ob still pending -iron stores are okay -b 12 is normal Code(s): D64.9 - ANEMIA, UNSPECIFIED Qualifiers: Anemia type: unspecified type Qualified Code(s): D64.9 - Anemia, unspecified (7) Failure to thrive Code(s): [id number] - Qualifiers: Failure to thrive age range: in adult Qualified Code(s): R62.7 - Adult failure to thrive Assessment/Plan -discussed PEG, would consider it, would like surgery to speak to him -refused U/S abdomen -is refusing most of his meds -labs improved -still has diarrhea- on PO abx -recheck stools
[2017-01-09] MEDS ORDERED: PANTOPRAZOLE SODIUM 40 MG VIAL ONE (10:52)
[2017-01-09] MEDS ORDERED: SODIUM CHLORIDE 100 ML IVPB ONE (10:52)
[2017-01-09] MEDS ORDERED: PT OWN MED DRAWER 7, Y5N ONE (11:04)
[2017-01-09] MEDS: PANTOPRAZOLE SODIUM 40 MG in SODIUM CHLORIDE 100 ML IVPB SCH (11:06)
[2017-01-09] MEDS: ASPIRIN COATED 81 MG TABLET.EC PO SCH ×2 (11:07→13:56)
[2017-01-09] MEDS: DIVALPROEX SODIUM 125 MG SPRINKLE CAPS (FP) PO SCH ×2 (11:07→11:46)
[2017-01-09] MEDS: levETIRAcetam XR 500 MG TAB PO SCH (11:07)
[2017-01-09] MEDS: oxyCODONE HCL 5 MG TABLET PO PRN (11:07)
[2017-01-09] MEDS: CLOPIDOGREL BISULFATE 75 MG TABLET (FP) PO SCH ×2 (11:07→13:56)
[2017-01-09] MEDS: COLLAGENASE CLOSTRIDIUM HIST. 30 GRAMS TUBE TP SCH (11:08)
--- NOTE | 2017-01-09 11:08 | PN ---
Progress Note, Physician History of Present Illness: seen and examined today in nad. no overnight events. no new complaints. states he is feeling overall better. - Current Medication List Current Medications: Active Medications Acetaminophen (Tylenol -) 650 mg PO Q12H PRN PRN Reason: PAIN LEVEL 6-10 Last Admin: 01/07/17 17:07 Dose: 650 mg Albuterol/Ipratropium (Duoneb -) 1 amp NEB TIDR [facility] Last Admin: 01/09/17 06:57 Dose: Not Given Alprazolam (Xanax -) 0.25 mg PO Q8H PRN PRN Reason: ANXIETY Last Admin: 01/09/17 01:04 Dose: 0.25 mg Aspirin (Ecotrin -) 81 mg PO DAILY [facility] Last Admin: 01/08/17 10:06 Dose: 81 mg Clopidogrel Bisulfate (Plavix -) 75 mg PO DAILY [facility] Last Admin: 01/08/17 10:06 Dose: 75 mg Collagenase (Santyl -) 1 applic TP DAILY [facility] Last Admin: 01/08/17 12:06 Dose: 1 applic Divalproex Sodium (Depakote Sprinkle Caps -) 250 mg PO DAILY [facility] Last Admin: 01/08/17 10:06 Dose: 250 mg Heparin Sodium (Porcine) (Heparin -) 5,000 unit SQ TID [facility] Last Admin: 01/09/17 06:26 Dose: 5,000 unit Pantoprazole Sodium 40 mg/ (Sodium Chloride) 100 mls @ 200 mls/hr IVPB DAILY [facility] Last Admin: 01/08/17 12:06 Dose: 200 mls/hr Insulin Aspart (Novolog Vial Sliding Scale -) 1 vial SQ Q6HPO [facility] PRN Reason: Protocol Last Admin: 01/09/17 00:45 Dose: Not Given Levetiracetam (Keppra Xr -) 500 mg PO DAILY [facility] Last Admin: 01/08/17 10:07 Dose: 500 mg Mirtazapine (Remeron -) 7.5 mg PO HS [facility] Last Admin: 01/08/17 21:28 Dose: 7.5 mg Oxycodone HCl (Roxicodone -) 10 mg PO Q12H PRN PRN Reason: PAIN LEVEL 6-10 Last Admin: 01/08/17 23:30 Dose: 10 mg - Objective Vital Signs: Vital Signs Temperature 97.5 F L 0810/17 06:00 Pulse Rate 94 H 01/09/17 06:00 Respiratory Rate 20 01/09/17 06:00 Blood Pressure 110/58 01/09/17 06:00 O2 Sat by Pulse Oximetry (%) 96 01/08/17 21:00 Constitutional: Yes: No Distress, Calm HENT: Yes: Atraumatic, Normocephalic Cardiovascular: Yes: Regular Rate and Rhythm, S1, S2. No: Bradycardia, Tachycardia, Pulse Irregular, Bruit, JVD, Gallop, Murmur, Rub, S3, S4, Varicosities Respiratory: Yes: Diminished. No: Regular, Rales, Rhonchi, Wheezes Gastrointestinal: Yes: Normal Bowel Sounds, Soft. No: Distention, Tenderness Extremities: Yes: Amputation Edema: No Peripheral Pulses WNL: Yes Peripheral Pulses: Left Doralis Pedis: 2+, Right Dorsalis Pedis: 2+ Neurological: Yes: Alert, Oriented Psychiatric: Yes: Alert, Oriented Labs: CBC, BMP 01/09/17 06:00 01/09/17 06:00 INR, PTT INR 1.34 (0.82-1.09) H 01/07/17 05:15 Fibrinogen 375.0 mg/dL (238-498) 01/07/17 05:15 - ....Imaging Chest X-ray: Report Reviewed, Image Reviewed EKG: Report Reviewed, Image Reviewed Other: Report Reviewed, Image Reviewed Assessment/Plan 61 year old man h/o COPD, PAD s/o amputations, PNA, DM, CKD, CAD s/p IL, ischemic CM, Chronic systolic CHF admitted with ams, lethargy, dec appettite, presumed sepsis. Sepsis-presumed secondary to PNA and C. diff s/p chest tube -now off Abx -holding Lasix due to intravascular depletion -BP has been running low normal CAD h/o IL, ischemic cardiomyopathy with chronic systolic CHF -intravascularly depleted, holding lasix -ASA and Plavix resumed -plan to re-introduce coreg when bp tolerates, currently still does not -hold off on CRISTHIAN-I/ARB given CJ on CKD
[2017-01-09] MEDS ORDERED: ONDANSETRON 4 MG/2 ML VIAL IVPB PRN (14:00)
--- NOTE | 2017-01-09 15:33 | PN ---
Progress Note, Physician History of Present Illness: pulmonary alert,nad,-sob. chest tube draining - Current Medication List Current Medications: Active Medications Acetaminophen (Tylenol -) 650 mg PO Q12H PRN PRN Reason: PAIN LEVEL 6-10 Last Admin: 01/07/17 17:07 Dose: 650 mg Albuterol/Ipratropium (Duoneb -) 1 amp NEB TIDR [facility] Last Admin: 01/09/17 14:32 Dose: 1 amp Alprazolam (Xanax -) 0.25 mg PO Q8H PRN PRN Reason: ANXIETY Last Admin: 01/09/17 01:04 Dose: 0.25 mg Aspirin (Ecotrin -) 81 mg PO DAILY [facility] Last Admin: 01/09/17 13:56 Dose: 81 mg Clopidogrel Bisulfate (Plavix -) 75 mg PO DAILY [facility] Last Admin: 01/09/17 13:56 Dose: 75 mg Collagenase (Santyl -) 1 applic TP DAILY [facility] Last Admin: 01/09/17 11:08 Dose: 1 applic Divalproex Sodium (Depakote Sprinkle Caps -) 250 mg PO DAILY [facility] Last Admin: 01/09/17 11:46 Dose: Not Given Heparin Sodium (Porcine) (Heparin -) 5,000 unit SQ TID [facility] Last Admin: 01/09/17 13:57 Dose: 5,000 unit Pantoprazole Sodium 40 mg/ (Sodium Chloride) 100 mls @ 200 mls/hr IVPB DAILY [facility] Last Admin: 01/09/17 11:06 Dose: 200 mls/hr Insulin Aspart (Novolog Vial Sliding Scale -) 1 vial SQ Q6HPO [facility] PRN Reason: Protocol Last Admin: 01/09/17 13:58 Dose: Not Given Levetiracetam (Keppra Xr -) 500 mg PO DAILY [facility] Last Admin: 01/09/17 11:07 Dose: 500 mg Mirtazapine (Remeron -) 7.5 mg PO HS [facility] Last Admin: 01/08/17 21:28 Dose: 7.5 mg Ondansetron HCl (Zofran Injection) 4 mg IVPB Q8H PRN PRN Reason: NAUSEA AND/OR VOMITING Oxycodone HCl (Roxicodone -) 10 mg PO Q12H PRN PRN Reason: PAIN LEVEL 6-10 Last Admin: 01/09/17 11:07 Dose: 10 mg - Objective Vital Signs: Vital Signs Temperature 98.6 F 01/09/17 14:52 Pulse Rate 88 01/09/17 15:06 Respiratory Rate 16 01/09/17 14:52 Blood Pressure 115/60 01/09/17 14:52 O2 Sat by Pulse Oximetry (%) 98 01/09/17 15:06 Constitutional: Yes: Well Nourished, Calm Eyes: Yes: WNL HENT: Yes: WNL Neck: Yes: WNL Cardiovascular: Yes: Regular Rate and Rhythm, S1, S2 Respiratory: Yes: Diminished Gastrointestinal: Yes: Normal Bowel Sounds, Soft Extremities: Yes: Amputation (left bka) Labs: CBC, BMP 01/09/17 06:00 01/09/17 06:00 INR, PTT INR 1.34 (0.82-1.09) H 01/07/17 05:15 Fibrinogen 375.0 mg/dL (238-498) 01/07/17 05:15 Assessment/Plan - Problems (1) Pneumonia Code(s): J18.9 - PNEUMONIA, UNSPECIFIED ORGANISM Qualifiers: Pneumonia type: due to unspecified organism Laterality: bilateral Lung location: lower lobe of lung Qualified Code(s): J18.9 - Pneumonia, unspecified organism (2) CHF exacerbation Code(s): I50.9 - HEART FAILURE, UNSPECIFIED Qualifiers: Congestive heart failure type: unspecified congestive heart failure type Qualified Code(s): I50.9 - Heart failure, unspecified (3) 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 complication Code(s): E11.29 - TYPE 2 DIABETES MELLITUS W OTH DIABETIC KIDNEY COMPLICATION (4) RUBY (acute kidney injury) Code(s): N17.9 - ACUTE KIDNEY FAILURE, UNSPECIFIED (5) Acquired absence of left foot Code(s): Z89.432 - ACQUIRED ABSENCE OF LEFT FOOT (6) Acquired absence of right foot Code(s): Z89.431 - ACQUIRED ABSENCE OF RIGHT FOOT (7) CAD (coronary artery disease) Code(s): I25.10 - ATHSCL HEART DISEASE OF [place] CORONARY ARTERY W/O ANG PCTRS (8) Cellulitis and abscess of foot Code(s): L03.119 - CELLULITIS OF UNSPECIFIED PART OF LIMB L02.619 - CUTANEOUS ABSCESS OF UNSPECIFIED FOOT (9) [facility] current use of insulin Code(s): Z79.4 - 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
[2017-01-09] MEDS: MIRTAZAPINE 15 MG TABLET (FP) PO SCH (22:53)
[2017-01-10 06:07] LABS: HEP B SURFACE AB Non Reactive (.)
[2017-01-10] MEDS: INSULIN SLIDING SCALE (NOVOLOG) 1 VIAL SQ SCH ×4 (06:28→18:23)
[2017-01-10] MEDS: HEPARIN NA (PORCINE) 5,000 UNITS/ML 1ML VIAL SQ SCH ×3 (06:28→22:10)
[2017-01-10] MEDS: ALBUTEROL SO4 2.5/IPRATROPIUM 0.5 INH SOL 3 ML VIAL.NEB. NEB SCH ×3 (06:41→23:22)
[2017-01-10] MEDS ORDERED: PT OWN MED DRAWER 7, Y5N ONE ×2 (10:18→20:24)
[2017-01-10] MEDS ORDERED: PANTOPRAZOLE SODIUM 40 MG VIAL ONE (10:18)
[2017-01-10] MEDS ORDERED: SODIUM CHLORIDE 100 ML IVPB ONE (10:18)
[2017-01-10] MEDS: CLOPIDOGREL BISULFATE 75 MG TABLET (FP) PO SCH (10:22)
[2017-01-10] MEDS: PANTOPRAZOLE SODIUM 40 MG in SODIUM CHLORIDE 100 ML IVPB SCH (10:22)
[2017-01-10] MEDS: DIVALPROEX SODIUM 125 MG SPRINKLE CAPS (FP) PO SCH ×2 (10:22→10:36)
[2017-01-10] MEDS: levETIRAcetam XR 500 MG TAB PO SCH ×2 (10:22→10:36)
[2017-01-10] MEDS: ASPIRIN COATED 81 MG TABLET.EC PO SCH (10:22)
[2017-01-10] MEDS: COLLAGENASE CLOSTRIDIUM HIST. 30 GRAMS TUBE TP SCH (10:23)
--- NOTE | 2017-01-10 10:40 | PN ---
Progress Note, Physician Chief Complaint: FTT,Sepsis, Anemia, cdiff, was refusing oral medications History of Present Illness: NAD, in bed, refused depakote, kepra and neb txs - Current Medication List Current Medications: Active Medications Acetaminophen (Tylenol -) 650 mg PO Q12H PRN PRN Reason: PAIN LEVEL 6-10 Last Admin: 01/07/17 17:07 Dose: 650 mg Albuterol/Ipratropium (Duoneb -) 1 amp NEB TIDR [facility] Last Admin: 01/10/17 06:41 Dose: Not Given Aspirin (Ecotrin -) 81 mg PO DAILY [facility] Last Admin: 01/10/17 10:22 Dose: 81 mg Cholestyramine Resin (Questran Light Packet -) 4 gm PO BID [facility] Clopidogrel Bisulfate (Plavix -) 75 mg PO DAILY [facility] Last Admin: 01/10/17 10:22 Dose: 75 mg Collagenase (Santyl -) 1 applic TP DAILY [facility] Last Admin: 01/10/17 10:23 Dose: 1 applic Divalproex Sodium (Depakote Sprinkle Caps -) 250 mg PO DAILY [facility] Last Admin: 01/10/17 10:36 Dose: Not Given Heparin Sodium (Porcine) (Heparin -) 5,000 unit SQ TID [facility] Last Admin: 01/10/17 06:28 Dose: Not Given Pantoprazole Sodium 40 mg/ (Sodium Chloride) 100 mls @ 200 mls/hr IVPB DAILY [facility] Last Admin: 01/10/17 10:22 Dose: 200 mls/hr Insulin Aspart (Novolog Vial Sliding Scale -) 1 vial SQ Q6HPO [facility] PRN Reason: Protocol Last Admin: 01/10/17 06:28 Dose: Not Given Levetiracetam (Keppra Xr -) 500 mg PO DAILY [facility] Last Admin: 01/10/17 10:36 Dose: Not Given Mirtazapine (Remeron -) 7.5 mg PO HS [facility] Last Admin: 01/09/17 22:53 Dose: 7.5 mg Ondansetron HCl (Zofran Injection) 4 mg IVPB Q8H PRN PRN Reason: NAUSEA AND/OR VOMITING Last Admin: 01/09/17 17:47 Dose: 4 mg Oxycodone HCl (Roxicodone -) 10 mg PO Q12H PRN PRN Reason: PAIN LEVEL 6-10 Last Admin: 01/09/17 11:07 Dose: 10 mg - Objective Vital Signs: Vital Signs Temperature 98.8 F 01/09/17 18:00 Pulse Rate 97 H 01/09/17 18:00 Respiratory Rate 20 01/09/17 21:00 Blood Pressure 107/64 01/09/17 18:00 O2 Sat by Pulse Oximetry (%) 98 01/09/17 21:00 Constitutional: Yes: Well Nourished, No Distress, Calm Cardiovascular: Yes: Regular Rate and Rhythm Respiratory: Yes: Regular Gastrointestinal: Yes: Normal Bowel Sounds Musculoskeletal: Yes: WNL Extremities: Yes: WNL Edema: No Peripheral Pulses WNL: Yes Neurological: Yes: Alert, Oriented Psychiatric: Yes: Alert, Oriented Labs: CBC, BMP 01/09/17 06:00 01/09/17 06:00 INR, PTT INR 1.34 (0.82-1.09) H 01/07/17 05:15 Fibrinogen 375.0 mg/dL (238-498) 01/07/17 05:15 Problem List - Problems (1) CHF exacerbation Assessment/Plan: Pulmonary and cardiology consult repeat CXR shows right pig tail intact and left pleural effusion Code(s): I50.9 - HEART FAILURE, UNSPECIFIED Qualifiers: Congestive heart failure type: unspecified congestive heart failure type Qualified Code(s): I50.9 - Heart failure, unspecified (2) Pneumonia of both lower lobes Assessment/Plan: switched to PO abx nebulizer txs Code(s): J18.9 - PNEUMONIA, UNSPECIFIED ORGANISM Qualifiers: Pneumonia type: aspiration pneumonia Aspiration pneumonia type: unspecified Qualified Code(s): J69.0 - Pneumonitis due to inhalation of food and vomit (3) 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 complication Code(s): E11.29 - TYPE 2 DIABETES MELLITUS W OTH DIABETIC KIDNEY COMPLICATION (4) Acute kidney failure Assessment/Plan: -secondary to sepsis, dehydration stable at this time continue to monitor Code(s): N17.9 - ACUTE KIDNEY FAILURE, UNSPECIFIED (5) Depressed Code(s): F32.9 - MAJOR DEPRESSIVE DISORDER, SINGLE EPISODE, UNSPECIFIED Qualifiers: Depression Type: major depressive disorder Major depression recurrence : single episode Active/Remission status: currently active Major depression episode severity: severe Psychotic features: without psychotic features Qualified Code(s): F32.2 - Major depressive disorder, single episode, severe without psychotic features (6) Anemia Assessment/Plan: -H/H improved -continue to monitor labs -stool ob still pending -iron stores are okay -b 12 is normal Code(s): D64.9 - ANEMIA, UNSPECIFIED Qualifiers: Anemia type: unspecified type Qualified Code(s): D64.9 - Anemia, unspecified (7) Failure to thrive Assessment/Plan: -secondary to depression -encourage PO intake -GI to see patient for possible PEG insertion Code(s): [id number] - Qualifiers: Failure to thrive age range: in adult Qualified Code(s): R62.7 - Adult failure to thrive Assessment/Plan -discussed PEG, would consider it,would like GI to speak to him, GI called in for consult -U/S abdomen bedside done-reviewed -is refusing most of his meds -labs improved -still has diarrhea- on PO abx -recheck stools -still has drainage via pig tail, also noted left pleural effusion on CXR
[2017-01-10] MEDS: CHOLESTYRAMINE/ASPARTAME 4 GM PACKET PO SCH ×2 (12:48→22:19)
[2017-01-10] MEDS: ALPRAZolam 0.25 MG TABLET PO PRN (16:49)
[2017-01-10] MEDS: ACETAMINOPHEN 325 MG TABLET (FP) PO PRN (22:09)
[2017-01-10] MEDS: MIRTAZAPINE 15 MG TABLET (FP) PO SCH (22:10)
[2017-01-11 00:07] LABS: LAC INTERPRETATION Comment: (.)
[2017-01-11] MEDS: INSULIN SLIDING SCALE (NOVOLOG) 1 VIAL SQ SCH ×4 (00:26→17:48)
[2017-01-11] MEDS: ALPRAZolam 0.25 MG TABLET PO PRN (01:46)
[2017-01-11] MEDS: HEPARIN NA (PORCINE) 5,000 UNITS/ML 1ML VIAL SQ SCH (06:32)
[2017-01-11] MEDS: ALBUTEROL SO4 2.5/IPRATROPIUM 0.5 INH SOL 3 ML VIAL.NEB. NEB SCH ×2 (06:48→14:15)
--- NOTE | 2017-01-11 08:51 | PN ---
Progress Note, Physician - Current Medication List Current Medications: Active Medications Acetaminophen (Tylenol -) 650 mg PO Q12H PRN PRN Reason: PAIN LEVEL 6-10 Last Admin: 01/10/17 22:09 Dose: 650 mg Albuterol/Ipratropium (Duoneb -) 1 amp NEB TIDR [facility] Last Admin: 01/11/17 06:48 Dose: Not Given Alprazolam (Xanax -) 0.25 mg PO Q8H PRN PRN Reason: ANXIETY Last Admin: 01/11/17 01:46 Dose: 0.25 mg Cholestyramine Resin (Questran Light Packet -) 4 gm PO BID [facility] Last Admin: 01/10/17 22:19 Dose: Not Given Collagenase (Santyl -) 1 applic TP DAILY [facility] Last Admin: 01/10/17 10:23 Dose: 1 applic Divalproex Sodium (Depakote Sprinkle Caps -) 250 mg PO DAILY [facility] Last Admin: 01/10/17 10:36 Dose: Not Given Heparin Sodium (Porcine) (Heparin -) 5,000 unit SQ TID [facility] Last Admin: 01/11/17 06:32 Dose: Not Given Pantoprazole Sodium 40 mg/ (Sodium Chloride) 100 mls @ 200 mls/hr IVPB DAILY [facility] Last Admin: 01/10/17 10:22 Dose: 200 mls/hr Insulin Aspart (Novolog Vial Sliding Scale -) 1 vial SQ Q6HPO [facility] PRN Reason: Protocol Last Admin: 01/11/17 06:31 Dose: Not Given Levetiracetam (Keppra Xr -) 500 mg PO DAILY [facility] Last Admin: 01/10/17 10:36 Dose: Not Given Mirtazapine (Remeron -) 7.5 mg PO HS [facility] Last Admin: 01/10/17 22:10 Dose: 7.5 mg Ondansetron HCl (Zofran Injection) 4 mg IVPB Q8H PRN PRN Reason: NAUSEA AND/OR VOMITING Last Admin: 01/09/17 17:47 Dose: 4 mg - Objective Vital Signs: Vital Signs Temperature 99.4 F 01/11/17 06:24 Pulse Rate 98 H 01/11/17 06:24 Respiratory Rate 20 01/11/17 06:24 Blood Pressure 107/70 01/11/17 06:24 O2 Sat by Pulse Oximetry (%) 100 08/11/17 21:00 Cardiovascular: Yes: Murmur, S1, S2 Respiratory: Yes: Diminished (AT THE BASES). No: Wheezes Gastrointestinal: Yes: Normal Bowel Sounds, Soft Extremities: Yes: Amputation Labs: CBC, BMP 01/09/17 06:00 01/09/17 06:00 INR, PTT INR 1.34 (0.82-1.09) H 01/07/17 05:15 Fibrinogen 375.0 mg/dL (238-498) 01/07/17 05:15 Problem List - Problems (1) CHF exacerbation Code(s): I50.9 - HEART FAILURE, UNSPECIFIED Qualifiers: Congestive heart failure type: unspecified congestive heart failure type Qualified Code(s): I50.9 - Heart failure, unspecified (2) Pneumonia of both lower lobes Code(s): J18.9 - PNEUMONIA, UNSPECIFIED ORGANISM Qualifiers: Pneumonia type: aspiration pneumonia Aspiration pneumonia type: unspecified Qualified Code(s): J69.0 - Pneumonitis due to inhalation of food and vomit (3) 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 complication Code(s): E11.29 - TYPE 2 DIABETES MELLITUS W OTH DIABETIC KIDNEY COMPLICATION (4) CKD (chronic kidney disease) Code(s): N18.9 - CHRONIC KIDNEY DISEASE, UNSPECIFIED Qualifiers: Chronic kidney disease stage: stage 3 (moderate) Qualified Code(s): N18.3 - Chronic kidney disease, stage 3 (moderate) (5) Sepsis Code(s): A41.9 - SEPSIS, UNSPECIFIED ORGANISM Qualifiers: Sepsis type: sepsis due to unspecified organism Qualified Code(s): A41.9 - Sepsis, unspecified organism (6) Pleural effusion Code(s): J90 - PLEURAL EFFUSION, NOT ELSEWHERE CLASSIFIED (7) Appetite loss Code(s): R63.0 - ANOREXIA (8) Anxiety Code(s): F41.9 - ANXIETY DISORDER, UNSPECIFIED (9) Clostridium difficile diarrhea Code(s): A04.7 - ENTEROCOLITIS DUE TO CLOSTRIDIUM DIFFICILE Assessment/Plan - Problems (1) CHF exacerbation Assessment/Plan: Pulmonary and cardiology consult repeat CXR shows right pig tail intact and left pleural effusion PULMONARY FOLLOW UP Code(s): I50.9 - HEART FAILURE, UNSPECIFIED Qualifiers: Congestive heart failure type: unspecified congestive heart failure type Qualified Code(s): I50.9 - Heart failure, unspecified (2) Pneumonia of both lower lobes Assessment/Plan: switched to PO abx nebulizer txs Code(s): J18.9 - PNEUMONIA, UNSPECIFIED ORGANISM Qualifiers: Pneumonia type: aspiration pneumonia Aspiration pneumonia type: unspecified Qualified Code(s): J69.0 - Pneumonitis due to inhalation of food and vomit (3) 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 complication Code(s): E11.29 - TYPE 2 DIABETES MELLITUS W OTH DIABETIC KIDNEY COMPLICATION (4) Acute kidney failure Assessment/Plan: -secondary to sepsis, dehydration stable at this time continue to monitor Code(s): N17.9 - ACUTE KIDNEY FAILURE, UNSPECIFIED (5) Depressed [facility] CONSULT DONE Code(s): F32.9 - MAJOR DEPRESSIVE DISORDER, SINGLE EPISODE, UNSPECIFIED Qualifiers: Depression Type: major depressive disorder Major depression recurrence : single episode Active/Remission status: currently active Major depression episode severity: severe Psychotic features: without psychotic features Qualified Code(s): F32.2 - Major depressive disorder, single episode, severe without psychotic features (6) Anemia Assessment/Plan: -H/H improved Laboratory Tests 01/07/17 01/09/17 05:15 06:00 Hgb 8.4 L 9.9 L D -continue to monitor labs -stool ob still pending -iron stores are okay -b 12 is normal Code(s): D64.9 - ANEMIA, UNSPECIFIED Qualifiers: Anemia type: unspecified type Qualified Code(s): D64.9 - Anemia, unspecified (7) Failure to thrive Assessment/Plan: -secondary to depression -encourage PO intake -GI to see patient for possible PEG insertion--D/W PT AGREES AT THIS TIME Code(s): [id number] - Qualifiers: Failure to thrive age range: in adult Qualified Code(s): R62.7 - Adult failure to thrive Assessment/Plan -discussed PEG, would consider it,would like GI to speak to him, GI called in for consult -U/S abdomen bedside done-reviewed -is refusing most of his meds -labs improved -still has diarrhea- on PO abx -recheck stools -still has drainage via pig tail, also noted left pleural effusion on CXR --HOLD ASA AND PLAVIX FOR PEG PLACEMENT
[2017-01-11] MEDS ORDERED: SODIUM CHLORIDE 100 ML IVPB ONE (09:21)
[2017-01-11] MEDS ORDERED: PANTOPRAZOLE SODIUM 40 MG VIAL ONE (09:21)
[2017-01-11] MEDS: DIVALPROEX SODIUM 125 MG SPRINKLE CAPS (FP) PO SCH (09:23)
[2017-01-11] MEDS: levETIRAcetam XR 500 MG TAB PO SCH (09:23)
[2017-01-11] MEDS: CHOLESTYRAMINE/ASPARTAME 4 GM PACKET PO SCH ×2 (09:23→22:22)
[2017-01-11] MEDS: COLLAGENASE CLOSTRIDIUM HIST. 30 GRAMS TUBE TP SCH (09:24)
[2017-01-11] MEDS: PANTOPRAZOLE SODIUM 40 MG in SODIUM CHLORIDE 100 ML IVPB SCH (09:24)
[2017-01-11] MEDS: ACETAMINOPHEN 325 MG TABLET (FP) PO PRN ×2 (09:36→22:21)
--- NOTE | 2017-01-11 10:33 | PN ---
Progress Note (short form) - Note Progress Note: Resting in NAD. 150 cc documented output from pigtail. Intake & Output 01/08/17 01/09/17 01/10/17 01/11/17 23:59 23:59 23:59 23:59 Intake Total 1050 860 200 Output Total 860 9012 741 350 Balance 190 -829 -541 -350 Weight 160 lb 8 oz Last Vital Signs Temp Pulse Resp BP Pulse Ox 99.4 F 98 H 20 107/70 100 01/11/17 06:24 01/11/17 06:24 01/11/17 06:24 01/11/17 06:24 01/10/17 21:00 Active Medications Acetaminophen (Tylenol -) 650 mg PO Q12H PRN PRN Reason: PAIN LEVEL 6-10 Last Admin: 01/11/17 09:36 Dose: 650 mg Albuterol/Ipratropium (Duoneb -) 1 amp NEB TIDR [facility] Last Admin: 01/11/17 06:48 Dose: Not Given Alprazolam (Xanax -) 0.25 mg PO Q8H PRN PRN Reason: ANXIETY Last Admin: 01/11/17 01:46 Dose: 0.25 mg Cholestyramine Resin (Questran Light Packet -) 4 gm PO BID [facility] Last Admin: 01/11/17 09:23 Dose: Not Given Collagenase (Santyl -) 1 applic TP DAILY [facility] Last Admin: 01/11/17 09:24 Dose: 1 applic Divalproex Sodium (Depakote Sprinkle Caps -) 250 mg PO DAILY [facility] Last Admin: 01/11/17 09:23 Dose: Not Given Heparin Sodium (Porcine) (Heparin -) 5,000 unit SQ TID [facility] Last Admin: 01/11/17 06:32 Dose: Not Given Pantoprazole Sodium 40 mg/ (Sodium Chloride) 100 mls @ 200 mls/hr IVPB DAILY [facility] Last Admin: 01/11/17 09:24 Dose: 200 mls/hr Insulin Aspart (Novolog Vial Sliding Scale -) 1 vial SQ Q6HPO [facility] PRN Reason: Protocol Last Admin: 01/11/17 06:31 Dose: Not Given Levetiracetam (Keppra Xr -) 500 mg PO DAILY [facility] Last Admin: 01/11/17 09:23 Dose: Not Given Mirtazapine (Remeron -) 7.5 mg PO HS [facility] Last Admin: 01/10/17 22:10 Dose: 7.5 mg Ondansetron HCl (Zofran Injection) 4 mg IVPB Q8H PRN PRN Reason: NAUSEA AND/OR VOMITING Last Admin: 01/09/17 17:47 Dose: 4 mg Constitutional: Yes: Awake and responsive, confused Eyes: Yes: WNL (surgical L pupil), Other HENT: Yes: WNL, Atraumatic, Normocephalic Neck: Yes: WNL, Supple, Trachea Midline Cardiovascular: Yes: WNL, Regular Rate and Rhythm Respiratory: Yes: Scattered bilateral Rhonchi Gastrointestinal: Yes: WNL, Normal Bowel Sounds, Soft ...Rectal Exam: Yes: Deferred Renal/: Yes: WNL Breast(s): Yes: WNL Musculoskeletal: Yes: WNL Extremities: Yes: Amputation Edema: No Peripheral Pulses WNL: Yes Neurological: Yes: Poorly responsive Labs: Laboratory Results - last 24 hr 01/09/17 01/09/17 01/10/17 06:00 06:00 12:24 LA PTT Baseline 51.4 dRVVT Confirm Interp 39.6 POC Glucometer 79 SAMARIA Screen Positive H SAMARIA Homogeneous Pattern 1:80 SAM[place] Nucleolar Pattern TNP SAM[place] Speckled Pattern TNP SAM[place] Centromere Pattern TNP Hepatitis A Ab Total Negative Hep Bs Antigen Negative Hep Bs Ab Concentration Non reactive Hep B Core Total Ab Negative Hepatitis C Antibody 0.2 01/10/17 01/11/17 17:54 06:29 LA PTT Baseline dRVVT Confirm Interp POC Glucometer 137 190 SAMARIA Screen SAM[place] Homogeneous Pattern SAM[place] Nucleolar Pattern SAM[place] Speckled Pattern SAM[place] Centromere Pattern Hepatitis A Ab Total Hep Bs Antigen Hep Bs Ab Concentration Hep B Core Total Ab Hepatitis C Antibody Problem List - Problems (1) Pneumonia Code(s): J18.9 - PNEUMONIA, UNSPECIFIED ORGANISM Qualifiers: Pneumonia type: due to unspecified organism Laterality: bilateral Lung location: lower lobe of lung Qualified Code(s): J18.9 - Pneumonia, unspecified organism (2) CHF exacerbation Code(s): I50.9 - HEART FAILURE, UNSPECIFIED Qualifiers: Congestive heart failure type: unspecified congestive heart failure type Qualified Code(s): I50.9 - Heart failure, unspecified (3) 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 complication Code(s): E11.29 - TYPE 2 DIABETES MELLITUS W OTH DIABETIC KIDNEY COMPLICATION (4) RUBY (acute kidney injury) Code(s): N17.9 - ACUTE KIDNEY FAILURE, UNSPECIFIED (5) Acquired absence of left foot Code(s): Z89.432 - ACQUIRED ABSENCE OF LEFT FOOT (6) Acquired absence of right foot Code(s): Z89.431 - ACQUIRED ABSENCE OF RIGHT FOOT (7) CAD (coronary artery disease) Code(s): I25.10 - ATHSCL HEART DISEASE OF [place] CORONARY ARTERY W/O ANG PCTRS (8) Cellulitis and abscess of foot Code(s): L03.119 - CELLULITIS OF UNSPECIFIED PART OF LIMB L02.619 - CUTANEOUS ABSCESS OF UNSPECIFIED FOOT (9) intermission coordinator current use of insulin Code(s): Z79.4 - INTERMEDIATE (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 OF INSULIN Assessment/Plan Septic Shock due to PNA Toxic Metabolic Encephalopathy suspected (?) Hypercapnia DM HTN COPD RUBY Bilateral PNA (?) aspiration Acute Respiratory Failure PLAN: O2 as needed Aspiration precautions PO as tolerated BD TX Glycemic control VTE prophylaxis Follow CT outputs -> Hopefully can D/C pigtail in the next few days Dr Villatoro
[2017-01-11 11:15] LABS: BASOPHIL 0.6 % (0-2.0); EOSINOPHIL 4.5 % (0-4.5); MCH 31.6 pg (25.7-33.7); MCHC 32.4 g/dl (32.0-35.9); MEAN CELL VOLUME 97.6 fl (80-96); MEAN PLT VOLUME 8.4 fl (7.5-11.1); NEUTROPHILS 72.2 % (42.8-82.8); PLATELET COUNT 126 K/MM3 (134-434); RDW 19.7 % (11.9-15.9); WHITE BLOOD COUNT 5.1 K/mm3 (4.0-10.0)
[2017-01-11] MEDS: SILVER SULFADIAZINE 1% TOP CREAM 50 GM JAR TP SCH ×2 (15:10→22:00)
[2017-01-11] MEDS: MIRTAZAPINE 15 MG TABLET (FP) PO SCH (22:22)
[2017-01-12] MEDS: ALBUTEROL SO4 2.5/IPRATROPIUM 0.5 INH SOL 3 ML VIAL.NEB. NEB SCH ×4 (00:05→22:14)
[2017-01-12] MEDS: INSULIN SLIDING SCALE (NOVOLOG) 1 VIAL SQ SCH ×4 (07:00→18:13)
--- NOTE | 2017-01-12 08:13 | PN ---
Progress Note, Physician - Current Medication List Current Medications: Active Medications Acetaminophen (Tylenol -) 650 mg PO Q12H PRN PRN Reason: PAIN LEVEL 6-10 Last Admin: 01/11/17 22:21 Dose: 650 mg Albuterol/Ipratropium (Duoneb -) 1 amp NEB TIDR [facility] Last Admin: 01/12/17 07:40 Dose: Not Given Alprazolam (Xanax -) 0.25 mg PO Q8H PRN PRN Reason: ANXIETY Last Admin: 01/11/17 01:46 Dose: 0.25 mg Cholestyramine Resin (Questran Light Packet -) 4 gm PO BID [facility] Last Admin: 01/11/17 22:22 Dose: Not Given Collagenase (Santyl -) 1 applic TP DAILY [facility] Last Admin: 01/11/17 09:24 Dose: 1 applic Divalproex Sodium (Depakote Sprinkle Caps -) 250 mg PO DAILY [facility] Last Admin: 01/11/17 09:23 Dose: Not Given Pantoprazole Sodium 40 mg/ (Sodium Chloride) 100 mls @ 200 mls/hr IVPB DAILY [facility] Last Admin: 01/11/17 09:24 Dose: 200 mls/hr Insulin Aspart (Novolog Vial Sliding Scale -) 1 vial SQ Q6HPO [facility] PRN Reason: Protocol Last Admin: 01/12/17 07:00 Dose: Not Given Levetiracetam (Keppra Xr -) 500 mg PO DAILY [facility] Last Admin: 01/11/17 09:23 Dose: Not Given Mirtazapine (Remeron -) 7.5 mg PO HS [facility] Last Admin: 01/11/17 22:22 Dose: 7.5 mg Ondansetron HCl (Zofran Injection) 4 mg IVPB Q8H PRN PRN Reason: NAUSEA AND/OR VOMITING Last Admin: 01/09/17 17:47 Dose: 4 mg Silver Sulfadiazine (Silvadene -) 1 applic TP BID [facility] Last Admin: 01/11/17 22:00 Dose: 1 applic - Objective Vital Signs: Vital Signs Temperature 99.4 F 01/11/17 06:24 Pulse Rate 93 H 01/11/17 19:00 Respiratory Rate 18 01/11/17 21:00 Blood Pressure 111/59 01/11/17 19:00 O2 Sat by Pulse Oximetry (%) 100 01/11/17 21:00 Labs: CBC, BMP 01/11/17 11:11 01/09/17 06:00 INR, PTT INR 1.34 (0.82-1.09) H 01/07/17 05:15 Fibrinogen 375.0 mg/dL (238-498) 01/07/17 05:15 Problem List - Problems (1) CHF exacerbation Code(s): I50.9 - HEART FAILURE, UNSPECIFIED Qualifiers: Congestive heart failure type: unspecified congestive heart failure type Qualified Code(s): I50.9 - Heart failure, unspecified (2) Pneumonia of both lower lobes Code(s): J18.9 - PNEUMONIA, UNSPECIFIED ORGANISM Qualifiers: Pneumonia type: aspiration pneumonia Aspiration pneumonia type: unspecified Qualified Code(s): J69.0 - Pneumonitis due to inhalation of food and vomit (3) 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 complication Code(s): E11.29 - TYPE 2 DIABETES MELLITUS W OTH DIABETIC KIDNEY COMPLICATION (4) CKD (chronic kidney disease) Code(s): N18.9 - CHRONIC KIDNEY DISEASE, UNSPECIFIED Qualifiers: Chronic kidney disease stage: stage 3 (moderate) Qualified Code(s): N18.3 - Chronic kidney disease, stage 3 (moderate) (5) Sepsis Code(s): A41.9 - SEPSIS, UNSPECIFIED ORGANISM Qualifiers: Sepsis type: sepsis due to unspecified organism Qualified Code(s): A41.9 - Sepsis, unspecified organism (6) Pleural effusion Code(s): J90 - PLEURAL EFFUSION, NOT ELSEWHERE CLASSIFIED (7) Appetite loss Code(s): R63.0 - ANOREXIA (8) Anxiety Code(s): F41.9 - ANXIETY DISORDER, UNSPECIFIED (9) Clostridium difficile diarrhea Code(s): A04.7 - ENTEROCOLITIS DUE TO CLOSTRIDIUM DIFFICILE
--- NOTE | 2017-01-12 08:42 | CON.GI ---
Consult Consult Specialty:: gastroenterology Referred by:: Dr Paul Rios Reason for Consultation:: failure to thrive - History of Present Illness History of Present Illness: 61 ty/o male with PMH of DM, CHF was admitted because of pneumonia complicated by sepsis and parapneumonic effusion s/p right chest tube insertion was asked to be seen because of continued poor po intake resulting in significant weight loss. He was previously on Aspirin and Plavix. The Plavix was discontinued yesterday. He denies dysphagia, no nausea and vomiting. There was spontaneous nose bleeding and skintear around the left groin. 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 Home Medications - Allergies Allergies/Adverse Reactions: Allergies Allergy/AdvReac Type Severity Reaction Status Date / Time banana Allergy Verified 01/01/17 18:47 - Home Medications Home Medications: Ambulatory Orders Ascorbate Calcium [Vitamin C] 500 mg PO DAILY 06/22/16 Calcitriol [Calcitriol -] 0.25 mcg PO DAILY 06/22/16 Levetiracetam [Keppra Xr -] 500 mg PO DAILY 06/22/16 Sevelamer HCl [Renagel] 800 mg PO TID 06/22/16 Atorvastatin Ca [Lipitor] 20 mg PO HS #30 tablet 06/29/16 Acetaminophen [Tylenol .Regular Strength -] 650 mg PO Q4H PRN #0 tablet Furosemide [Lasix -] 20 mg PO DAILY #30 tablet 09/26/16 Insulin (Levemir) [Levemir Vial] 10 units SQ BIDI #10 ml 09/26/16 Insulin Sliding Scale [Novolog Vial Sliding Scale -] 1 vial SQ ACHS units 09/26 Potassium Chloride [K-Dur -] 20 meq PO DAILY #30 tab 09/26/16 Aspirin Coated [Ecotrin -] 81 mg PO DAILY #30 tab 12/11/16 Carvedilol [Coreg -] 3.125 mg PO BID tablet 12/11/16 Clopidogrel Bisulfate [Plavix -] 75 mg PO DAILY tablet 12/11/16 Divalproex [Depakote -] 250 mg PO DAILY tab 12/11/16 Lactobacillus Acidophilus [Bacid -] 1 tab PO DAILY 30 Days 12/11/16 Mirtazapine [Remeron -] 30 mg PO HS tablet 12/11/16 Oxycodone HCl [Roxicodone -] 5 mg PO Q4H PRN #0 tablet MDD 6 12/11/16 Diazepam [Valium] 5 mg PO BID PRN #0 tablet MDD 2 12/20/16 Pantoprazole Sodium [Protonix -] 40 mg PO DAILY tab 12/20/16 Family Disease History - Family Disease History Family History: Denies (colon and gastric cancer) Family Disease History: Diabetes: Sister Review of Systems - Review of Systems Constitutional: denies: Fever Eyes: denies: Blind Spots HENT: denies: Difficult Swallowing Respiratory: denies: SOB Gastrointestinal: denies: Abdominal Pain, Bloating, Constipation, Diarrhea, Indigestion, Melena Physical Exam-GI Vital Signs: Vital Signs Temperature 99.4 F 01/11/17 06:24 Pulse Rate 93 H 01/11/17 19:00 Respiratory Rate 18 01/11/17 21:00 Blood Pressure 111/59 01/11/17 19:00 O2 Sat by Pulse Oximetry (%) 100 01/11/17 21:00 Constitutional: Yes: Well Nourished Eyes: Yes: Conjunctiva Clear Neck: Yes: Trachea Midline Cardiovascular: Yes: Regular Rate and Rhythm Respiratory: Yes: Diminished (at hte bases), Poor Air Entry ...Palpate: Yes: Soft. No: Firm/Rigid, Guarding, Hepatomegaly, Mass, Splenomegaly, Tenderness Labs: CBC, BMP 01/11/17 11:11 01/09/17 06:00 INR, PTT INR 1.34 (0.82-1.09) H 01/07/17 05:15 Fibrinogen 375.0 mg/dL (238-498) 01/07/17 05:15 Problem List - Problems (1) Failure to thrive Assessment/Plan: R> informed consent for PEG obtained, gave an opportunity to ask questions will need Vit K supplement will need to be transfused with platelets because of spontaneous bleeding around chest tube site. Code(s): [id number] - Qualifiers: Failure to thrive age range: in adult Qualified Code(s): R62.7 - Adult failure to thrive (2) Poor nutrition Code(s): E63.9 - NUTRITIONAL DEFICIENCY, UNSPECIFIED
[2017-01-12] MEDS ORDERED: PHYTONADIONE 10 MG/1 ML AMP IM ONE ×2 (08:45→12:15)
[2017-01-12] MEDS ORDERED: PANTOPRAZOLE SODIUM 40 MG VIAL ONE (11:54)
[2017-01-12] MEDS ORDERED: SODIUM CHLORIDE 100 ML IVPB ONE (11:54)
--- NOTE | 2017-01-12 12:05 | PN ---
Progress Note (short form) - Note Progress Note: Resting in NAD. 1400 cc documented output from pigtail. Intake & Output 01/09/17 01/10/17 01/11/17 01/12/17 23:59 23:59 23:59 23:59 Intake Total 860 200 120 240 Output Total 1684 35 783 510 3868 Balance -829 -541 -480 -1760 Weight 160 lb 8 oz Last Vital Signs Temp Pulse Resp BP Pulse Ox 99.4 F 93 H 18 111/59 100 01/11/17 06:24 01/11/17 19:00 01/11/17 21:00 01/11/17 19:00 01/11/17 21:00 Active Medications Acetaminophen (Tylenol -) 650 mg PO Q12H PRN PRN Reason: PAIN LEVEL 6-10 Last Admin: 01/11/17 22:21 Dose: 650 mg Albuterol/Ipratropium (Duoneb -) 1 amp NEB TIDR [facility] Last Admin: 01/12/17 07:40 Dose: Not Given Alprazolam (Xanax -) 0.25 mg PO Q8H PRN PRN Reason: ANXIETY Last Admin: 01/11/17 01:46 Dose: 0.25 mg Cholestyramine Resin (Questran Light Packet -) 4 gm PO BID [facility] Last Admin: 01/11/17 22:22 Dose: Not Given Collagenase (Santyl -) 1 applic TP DAILY [facility] Last Admin: 01/11/17 09:24 Dose: 1 applic Divalproex Sodium (Depakote Sprinkle Caps -) 250 mg PO DAILY [facility] Last Admin: 01/11/17 09:23 Dose: Not Given Pantoprazole Sodium 40 mg/ (Sodium Chloride) 100 mls @ 200 mls/hr IVPB DAILY [facility] Last Admin: 01/11/17 09:24 Dose: 200 mls/hr Insulin Aspart (Novolog Vial Sliding Scale -) 1 vial SQ Q6HPO [facility] PRN Reason: Protocol Last Admin: 01/12/17 11:57 Dose: Not Given Levetiracetam (Keppra Xr -) 500 mg PO DAILY [facility] Last Admin: 01/11/17 09:23 Dose: Not Given Mirtazapine (Remeron -) 7.5 mg PO HS [facility] Last Admin: 01/11/17 22:22 Dose: 7.5 mg Ondansetron HCl (Zofran Injection) 4 mg IVPB Q8H PRN PRN Reason: NAUSEA AND/OR VOMITING Last Admin: 01/09/17 17:47 Dose: 4 mg Phytonadione (Aqua Mephyton Injection -) 10 mg IM ONCE ONE Stop: 01/12/17 12:16 Silver Sulfadiazine (Silvadene -) 1 applic TP BID [facility] Last Admin: 01/11/17 22:00 Dose: 1 applic Constitutional: Yes: Awake and responsive, confused Eyes: Yes: WNL (surgical L pupil), Other HENT: Yes: WNL, Atraumatic, Normocephalic Neck: Yes: WNL, Supple, Trachea Midline Cardiovascular: Yes: WNL, Regular Rate and Rhythm Respiratory: Yes: Scattered bilateral Rhonchi Gastrointestinal: Yes: WNL, Normal Bowel Sounds, Soft ...Rectal Exam: Yes: Deferred Renal/: Yes: WNL Breast(s): Yes: WNL Musculoskeletal: Yes: WNL Extremities: Yes: Amputation Edema: No Peripheral Pulses WNL: Yes Neurological: Yes: non-focal Labs: Laboratory Results - last 24 hr 01/11/17 01/11/17 01/11/17 12:28 15:45 17:41 POC Glucometer 141 219 Stool Occult Blood Negative 01/12/17 11:17 POC Glucometer 119 Stool Occult Blood Problem List - Problems (1) Pneumonia Code(s): J18.9 - PNEUMONIA, UNSPECIFIED ORGANISM Qualifiers: Pneumonia type: due to unspecified organism Laterality: bilateral Lung location: lower lobe of lung Qualified Code(s): J18.9 - Pneumonia, unspecified organism (2) CHF exacerbation Code(s): I50.9 - HEART FAILURE, UNSPECIFIED Qualifiers: Congestive heart failure type: unspecified congestive heart failure type Qualified Code(s): I50.9 - Heart failure, unspecified (3) 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 complication Code(s): E11.29 - TYPE 2 DIABETES MELLITUS W OTH DIABETIC KIDNEY COMPLICATION (4) RUBY (acute kidney injury) Code(s): N17.9 - ACUTE KIDNEY FAILURE, UNSPECIFIED (5) Acquired absence of left foot Code(s): Z89.432 - ACQUIRED ABSENCE OF LEFT FOOT (6) Acquired absence of right foot Code(s): Z89.431 - ACQUIRED ABSENCE OF RIGHT FOOT (7) CAD (coronary artery disease) Code(s): I25.10 - ATHSCL HEART DISEASE OF [place] CORONARY ARTERY W/O ANG PCTRS (8) Cellulitis and abscess of foot Code(s): L03.119 - CELLULITIS OF UNSPECIFIED PART OF LIMB L02.619 - CUTANEOUS ABSCESS OF UNSPECIFIED FOOT (9) correction current use of insulin Code(s): Z79.4 - [employer]ISH[employer] BACK TENDER (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 OF INSULIN Assessment/Plan Septic Shock due to PNA Toxic Metabolic Encephalopathy suspected (?) Hypercapnia DM HTN COPD RUBY Bilateral PNA (?) aspiration Acute Respiratory Failure PLAN: O2 as needed Aspiration precautions PO as tolerated BD TX Glycemic control VTE prophylaxis Follow CT outputs -> (?) Trial of Lasix Dr Villatoro
[2017-01-12] MEDS: PANTOPRAZOLE SODIUM 40 MG in SODIUM CHLORIDE 100 ML IVPB SCH (12:11)
[2017-01-12] MEDS: COLLAGENASE CLOSTRIDIUM HIST. 30 GRAMS TUBE TP SCH (12:15)
[2017-01-12] MEDS: CHOLESTYRAMINE/ASPARTAME 4 GM PACKET PO SCH ×2 (12:16→22:08)
[2017-01-12] MEDS: DIVALPROEX SODIUM 125 MG SPRINKLE CAPS (FP) PO SCH (12:25)
[2017-01-12] MEDS: levETIRAcetam XR 500 MG TAB PO SCH (12:25)
--- NOTE | 2017-01-12 13:13 | EKG ---
Test Reason : Blood Pressure : / mmHG Vent. Rate : 093 BPM Atrial Rate : 093 BPM P-R Int : 182 ms QRS Dur : 112 ms QT Int : 398 ms P-R-T Axes : 059 -38 140 degrees QTc Int : 494 ms SINUS RHYTHM WITH OCCASIONAL PREMATURE VENTRICULAR COMPLEXES LEFT AXIS DEVIATION INCOMPLETE LEFT BUNDLE BRANCH BLOCK T WAVE ABNORMALITY, CONSIDER LATERAL ISCHEMIA PROLONGED QT ABNORMAL ECG WHEN COMPARED WITH ECG OF 01-JAN-2017 18:53, PREMATURE VENTRICULAR COMPLEXES ARE NOW PRESENT NONSPECIFIC T WAVE ABNORMALITY NOW EVIDENT IN INFERIOR LEADS T WAVE INVERSION NOW EVIDENT IN ANTERIOR LEADS CLINICAL CORRELATION IS RECOMMENDED Confirmed by LORE ZARCO MD ([id number]) on 01/12/2017 1:12:32 PM Referred By: Yarelis ALCARAZ Confirmed By:LORE ZARCO MD
--- NOTE | 2017-01-12 14:02 | PN ---
Progress Note (short form) - Note Progress Note: Pt did not wanted to be bothered , wanted to rest and to be left alone O/E: NAD chest tube present CTA b/l RRR Amputated LE , an ulcer seen on the left knee. Last Vital Signs Temp Pulse Resp BP Pulse Ox 99.4 F 93 H 18 111/59 100 01/11/17 06:24 01/11/17 19:00 01/11/17 21:00 01/11/17 19:00 01/11/17 21:00 CBC, BMP 01/11/17 11:11 01/09/17 06:00 Current Medications Generic Name Dose Route Start Last Admin Trade Name Freq PRN Reason Stop Dose Admin Acetaminophen 650 mg 01/07/17 16:45 01/11/17 22:21 Tylenol - PO 650 mg Q12H PRN Administration PAIN LEVEL 6-10 Albuterol/Ipratropium 1 amp 01/06/17 22:00 01/12/17 07:40 Duoneb - NEB Not Given TIDR [facility] Alprazolam 0.25 mg 01/10/17 16:18 01/11/17 01:46 Xanax - PO 0.25 mg Q8H PRN Administration ANXIETY Cholestyramine Resin 4 gm 01/10/17 12:00 01/12/17 12:16 Questran Light Packet - PO Not Given BID [facility] Collagenase 1 applic 01/07/17 10:00 01/12/17 12:15 Santyl - TP 1 applic DAILY [facility] Administration Divalproex Sodium 250 mg 01/07/17 10:00 01/12/17 12:25 Depakote Sprinkle Caps - PO 250 mg DAILY [facility] Administration Pantoprazole Sodium 40 mg/ 100 mls @ 200 mls/hr 01/08/17 11:15 01/12/17 12:11 Sodium Chloride IVPB 200 mls/hr DAILY [facility] Administration Insulin Aspart 1 vial 01/07/17 00:00 01/12/17 11:57 Novolog Vial Sliding Scale - SQ Not Given Q6HPO [facility] Protocol Levetiracetam 500 mg 01/07/17 10:00 01/12/17 12:25 Keppra Xr - PO 500 mg DAILY [facility] Administration Mirtazapine 7.5 mg 01/07/17 22:00 01/11/17 22:22 Remeron - PO 7.5 mg HS [facility] Administration Ondansetron HCl 4 mg 01/09/17 14:00 01/09/17 17:47 Zofran Injection IVPB 4 mg Q8H PRN Administration NAUSEA AND/OR VOMITING Silver Sulfadiazine 1 applic 01/11/17 12:45 01/11/17 22:00 Silvadene - TP 1 applic BID [facility] Administration Assessment/Plan: Normocytic anemia Thrombocytopenia PNA , s/p chest tube placement C diff CKD Failure to thrive Thrombocytopenia, improving, likely etiology sepsis/abx, induced, HIT ab negative, thus far w/u negative, mild splenomegaly,HYACINTH normal, LA negative Normocytic anemia, iron studies reviewed. Likely ACD/ACI in the setting of CKD. Continue to monitor. SAMARIA titer 1:80 (low positive) ??Low grade MDS Abx per ID. PNA/Chest tube per Pulm Vitamin K and Platelets prior to PEG as per GI supportive care Will follow Problem List - Problems (1) Thrombocytopenia Code(s): D69.6 - THROMBOCYTOPENIA, UNSPECIFIED (2) Anemia Code(s): D64.9 - ANEMIA, UNSPECIFIED Qualifiers: Anemia type: unspecified type Qualified Code(s): D64.9 - Anemia, unspecified (3) Pneumonia of both lower lobes Code(s): J18.9 - PNEUMONIA, UNSPECIFIED ORGANISM Qualifiers: Pneumonia type: aspiration pneumonia Aspiration pneumonia type: unspecified Qualified Code(s): J69.0 - Pneumonitis due to inhalation of food and vomit (4) Respiratory failure Code(s): J96.90 - RESPIRATORY FAILURE, UNSP, UNSP W HYPOXIA OR HYPERCAPNIA Qualifiers: Chronicity: acute Respiratory failure complication: hypoxia and hypercapnia Qualified Code(s): J96.01 - Acute respiratory failure with hypoxia (5) RUBY (acute kidney injury) Code(s): N17.9 - ACUTE KIDNEY FAILURE, UNSPECIFIED
[2017-01-12] MEDS: SILVER SULFADIAZINE 1% TOP CREAM 50 GM JAR TP SCH ×2 (17:45→22:08)
[2017-01-12] MEDS: MIRTAZAPINE 15 MG TABLET (FP) PO SCH (22:08)
[2017-01-13] MEDS: INSULIN SLIDING SCALE (NOVOLOG) 1 VIAL SQ SCH ×4 (06:32→18:32)
[2017-01-13] MEDS: ALBUTEROL SO4 2.5/IPRATROPIUM 0.5 INH SOL 3 ML VIAL.NEB. NEB SCH ×3 (07:02→21:32)
--- NOTE | 2017-01-13 09:56 | PN ---
Progress Note (short form) - Note Progress Note: PULMONARY Denies shortness of breath, cough or fevers. Chest tube draining ~500mL last 24 hrs. Last Vital Signs Temp Pulse Resp BP Pulse Ox 97.9 F 93 H 18 100/57 100 01/13/17 06:00 01/12/17 10:00 01/12/17 21:00 01/12/17 10:00 01/12/17 21:00 Gen: NAD at rest Heart: RRR Lung: decreased breath sounds at the bases Abd: soft, nontender Ext: no edema, L BKA CBC, BMP 01/11/17 11:11 01/09/17 06:00 Active Medications Acetaminophen (Tylenol -) 650 mg PO Q12H PRN PRN Reason: PAIN LEVEL 6-10 Last Admin: 01/11/17 22:21 Dose: 650 mg Albuterol/Ipratropium (Duoneb -) 1 amp NEB TIDR [facility] Last Admin: 01/13/17 07:02 Dose: Not Given Alprazolam (Xanax -) 0.25 mg PO Q8H PRN PRN Reason: ANXIETY Last Admin: 01/11/17 01:46 Dose: 0.25 mg Cholestyramine Resin (Questran Light Packet -) 4 gm PO BID [facility] Last Admin: 01/12/17 22:08 Dose: Not Given Collagenase (Santyl -) 1 applic TP DAILY [facility] Last Admin: 01/12/17 12:15 Dose: 1 applic Divalproex Sodium (Depakote Sprinkle Caps -) 250 mg PO DAILY [facility] Last Admin: 01/12/17 12:25 Dose: 250 mg Pantoprazole Sodium 40 mg/ (Sodium Chloride) 100 mls @ 200 mls/hr IVPB DAILY [facility] Last Admin: 01/12/17 12:11 Dose: 200 mls/hr Insulin Aspart (Novolog Vial Sliding Scale -) 1 vial SQ Q6HPO [facility] PRN Reason: Protocol Last Admin: 01/13/17 06:32 Dose: Not Given Levetiracetam (Keppra Xr -) 500 mg PO DAILY [facility] Last Admin: 01/12/17 12:25 Dose: 500 mg Mirtazapine (Remeron -) 7.5 mg PO HS [facility] Last Admin: 01/12/17 22:08 Dose: Not Given Ondansetron HCl (Zofran Injection) 4 mg IVPB Q8H PRN PRN Reason: NAUSEA AND/OR VOMITING Last Admin: 01/09/17 17:47 Dose: 4 mg Silver Sulfadiazine (Silvadene -) 1 applic TP BID [facility] Last Admin: 01/12/17 22:08 Dose: Not Given A/P Pneumonia s/p Septic Shock Chronic LV Systolic Heart Failure Chronic Hypercapneic Respiratory Failure Pleural Effusion - Transudative s/p right pigtail catheter drainage Altered Mental Status improving COPD Acute Kidney Injury HTN - antibiotics per ID - check chemistry, creatinine - consider resuming heart failure regimen, lasix - repeat CXR - monitor pigtail drainage - will remove chest tube pending drainage - DVT prophylaxis
--- NOTE | 2017-01-13 10:43 | PN ---
Progress Note, Physician Chief Complaint: FTT,Sepsis, Anemia, cdiff, was refusing oral medications History of Present Illness: NAD, in bed, refused depakote, kepra and neb txs -keeps changing his mind regarding PEG, refuses today, agreed yesterday? -refusing breakfast, very irritable -taking medications -not on any DVT prophylaxis - Current Medication List Current Medications: Active Medications Acetaminophen (Tylenol -) 650 mg PO Q12H PRN PRN Reason: PAIN LEVEL 6-10 Last Admin: 01/11/17 22:21 Dose: 650 mg Albuterol/Ipratropium (Duoneb -) 1 amp NEB TIDR [facility] Last Admin: 01/13/17 07:02 Dose: Not Given Alprazolam (Xanax -) 0.25 mg PO Q8H PRN PRN Reason: ANXIETY Last Admin: 01/11/17 01:46 Dose: 0.25 mg Cholestyramine Resin (Questran Light Packet -) 4 gm PO BID [facility] Last Admin: 01/12/17 22:08 Dose: Not Given Collagenase (Santyl -) 1 applic TP DAILY [facility] Last Admin: 01/12/17 12:15 Dose: 1 applic Divalproex Sodium (Depakote Sprinkle Caps -) 250 mg PO DAILY [facility] Last Admin: 01/12/17 12:25 Dose: 250 mg Enoxaparin Sodium (Lovenox -) 70 mg SQ Q12H [facility] Pantoprazole Sodium 40 mg/ (Sodium Chloride) 100 mls @ 200 mls/hr IVPB DAILY [facility] Last Admin: 01/12/17 12:11 Dose: 200 mls/hr Insulin Aspart (Novolog Vial Sliding Scale -) 1 vial SQ Q6HPO [facility] PRN Reason: Protocol Last Admin: 01/13/17 06:32 Dose: Not Given Levetiracetam (Keppra Xr -) 500 mg PO DAILY [facility] Last Admin: 01/12/17 12:25 Dose: 500 mg Mirtazapine (Remeron -) 7.5 mg PO HS [facility] Last Admin: 01/12/17 22:08 Dose: Not Given Ondansetron HCl (Zofran Injection) 4 mg IVPB Q8H PRN PRN Reason: NAUSEA AND/OR VOMITING Last Admin: 01/09/17 17:47 Dose: 4 mg Silver Sulfadiazine (Silvadene -) 1 applic TP BID [facility] Last Admin: 01/12/17 22:08 Dose: Not Given - Objective Vital Signs: Vital Signs Temperature 97.9 F 01/13/17 06:00 Pulse Rate 93 H 01/12/17 10:00 Respiratory Rate 18 01/12/17 21:00 Blood Pressure 100/57 01/12/17 10:00 O2 Sat by Pulse Oximetry (%) 100 01/12/17 21:00 Constitutional: Yes: Well Nourished, No Distress, Calm Cardiovascular: Yes: Regular Rate and Rhythm, Murmur (Grade II LSB) Respiratory: Yes: Regular Gastrointestinal: Yes: Hypoactive Bowel Sounds Musculoskeletal: Yes: WNL Extremities: Yes: Amputation (LLE) Edema: No Peripheral Pulses WNL: Yes Neurological: Yes: Alert, Oriented Psychiatric: Yes: Alert, Oriented, Agitated Labs: CBC, BMP 01/11/17 11:11 01/09/17 06:00 INR, PTT INR 1.34 (0.82-1.09) H 01/07/17 05:15 Fibrinogen 375.0 mg/dL (238-498) 01/07/17 05:15 Problem List - Problems (1) CHF exacerbation Assessment/Plan: Pulmonary and cardiology consult repeat CXR showed right pig tail intact and left pleural effusion Code(s): I50.9 - HEART FAILURE, UNSPECIFIED Qualifiers: Congestive heart failure type: unspecified congestive heart failure type Qualified Code(s): I50.9 - Heart failure, unspecified (2) Pneumonia of both lower lobes Assessment/Plan: switched to PO abx nebulizer txs Code(s): J18.9 - PNEUMONIA, UNSPECIFIED ORGANISM Qualifiers: Pneumonia type: aspiration pneumonia Aspiration pneumonia type: unspecified Qualified Code(s): J69.0 - Pneumonitis due to inhalation of food and vomit (3) 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 complication Code(s): E11.29 - TYPE 2 DIABETES MELLITUS W OTH DIABETIC KIDNEY COMPLICATION (4) Acute kidney failure Assessment/Plan: -secondary to sepsis, dehydration stable at this time continue to monitor Code(s): N17.9 - ACUTE KIDNEY FAILURE, UNSPECIFIED (5) Depressed Code(s): F32.9 - MAJOR DEPRESSIVE DISORDER, SINGLE EPISODE, UNSPECIFIED Qualifiers: Depression Type: major depressive disorder Major depression recurrence : single episode Active/Remission status: currently active Major depression episode severity: severe Psychotic features: without psychotic features Qualified Code(s): F32.2 - Major depressive disorder, single episode, severe without psychotic features (6) Anemia Assessment/Plan: -H/H improved and stable -continue to monitor labs -stool ob negative -iron stores are okay -b 12 is normal -repeat labs in AM Code(s): D64.9 - ANEMIA, UNSPECIFIED Qualifiers: Anemia type: unspecified type Qualified Code(s): D64.9 - Anemia, unspecified (7) Failure to thrive Assessment/Plan: -secondary to depression -encourage PO intake -GI saw the patient for possible PEG insertion, patient agreed. Code(s): [id number] - Qualifiers: Failure to thrive age range: in adult Qualified Code(s): R62.7 - Adult failure to thrive Assessment/Plan -U/S abdomen bedside done-reviewed -is refusing most of his meds -repeat labs in AM -still has diarrhea- on PO abx -recheck stools -still has drainage via pig tail, also noted left pleural effusion on last CXR, seen by pulmonary -seen by hematology, no HIT reported -lovenox until PEG is scheduled for DVT prophylaxis -keeps changing his mind regarding PEG, refuses today, agreed yesterday? has poor PO intake
[2017-01-13] MEDS ORDERED: PT OWN MED DRAWER 7, Y5N ONE (10:45)
[2017-01-13] MEDS ORDERED: PANTOPRAZOLE SODIUM 40 MG VIAL ONE (10:46)
[2017-01-13] MEDS ORDERED: SODIUM CHLORIDE 100 ML IVPB ONE (10:46)
[2017-01-13] MEDS: DIVALPROEX SODIUM 125 MG SPRINKLE CAPS (FP) PO SCH (10:51)
[2017-01-13] MEDS: COLLAGENASE CLOSTRIDIUM HIST. 30 GRAMS TUBE TP SCH (10:52)
[2017-01-13] MEDS: SILVER SULFADIAZINE 1% TOP CREAM 50 GM JAR TP SCH ×2 (10:52→22:18)
[2017-01-13] MEDS: levETIRAcetam XR 500 MG TAB PO SCH (10:52)
[2017-01-13] MEDS: PANTOPRAZOLE SODIUM 40 MG in SODIUM CHLORIDE 100 ML IVPB SCH (10:52)
[2017-01-13] MEDS: CHOLESTYRAMINE/ASPARTAME 4 GM PACKET PO SCH ×3 (10:52→22:18)
--- NOTE | 2017-01-13 10:52 | PN ---
Progress Note, Physician History of Present Illness: seen and examined today in nad. did not eat breakfast. alert and oriented but does not want to speak much. no new complaints. states he is feeling a little bit better. denies sob or chest pain. - Current Medication List Current Medications: Active Medications Acetaminophen (Tylenol -) 650 mg PO Q12H PRN PRN Reason: PAIN LEVEL 6-10 Last Admin: 01/11/17 22:21 Dose: 650 mg Albuterol/Ipratropium (Duoneb -) 1 amp NEB TIDR [facility] Last Admin: 01/13/17 07:02 Dose: Not Given Alprazolam (Xanax -) 0.25 mg PO Q8H PRN PRN Reason: ANXIETY Last Admin: 01/11/17 01:46 Dose: 0.25 mg Cholestyramine Resin (Questran Light Packet -) 4 gm PO BID [facility] Last Admin: 01/12/17 22:08 Dose: Not Given Collagenase (Santyl -) 1 applic TP DAILY [facility] Last Admin: 01/12/17 12:15 Dose: 1 applic Divalproex Sodium (Depakote Sprinkle Caps -) 250 mg PO DAILY [facility] Last Admin: 01/12/17 12:25 Dose: 250 mg Enoxaparin Sodium (Lovenox -) 70 mg SQ Q12H [facility] Pantoprazole Sodium 40 mg/ (Sodium Chloride) 100 mls @ 200 mls/hr IVPB DAILY [facility] Last Admin: 01/12/17 12:11 Dose: 200 mls/hr Insulin Aspart (Novolog Vial Sliding Scale -) 1 vial SQ Q6HPO [facility] PRN Reason: Protocol Last Admin: 01/13/17 06:32 Dose: Not Given Levetiracetam (Keppra Xr -) 500 mg PO DAILY [facility] Last Admin: 01/12/17 12:25 Dose: 500 mg Mirtazapine (Remeron -) 7.5 mg PO HS [facility] Last Admin: 01/12/17 22:08 Dose: Not Given Ondansetron HCl (Zofran Injection) 4 mg IVPB Q8H PRN PRN Reason: NAUSEA AND/OR VOMITING Last Admin: 01/09/17 17:47 Dose: 4 mg Silver Sulfadiazine (Silvadene -) 1 applic TP BID [facility] Last Admin: 01/12/17 22:08 Dose: Not Given - Objective Vital Signs: Vital Signs Temperature 97.9 F 01/13/17 06:00 Pulse Rate 93 H 01/12/17 10:00 Respiratory Rate 18 01/12/17 21:00 Blood Pressure 100/57 01/12/17 10:00 O2 Sat by Pulse Oximetry (%) 100 01/12/17 21:00 Constitutional: Yes: No Distress, Calm Eyes: Yes: Conjunctiva Clear, EOM Intact, PERRL HENT: Yes: Atraumatic, Normocephalic Neck: Yes: Supple, Trachea Midline Cardiovascular: Yes: Regular Rate and Rhythm, S1, S2. No: Bradycardia, Tachycardia, Pulse Irregular, Bruit, JVD, Gallop, Murmur, Rub, S3, S4, Varicosities Respiratory: Yes: Regular, Diminished. No: Rales, Rhonchi, Wheezes Gastrointestinal: Yes: Normal Bowel Sounds, Soft. No: Distention, Tenderness Extremities: Yes: Amputation Edema: No Peripheral Pulses WNL: No Neurological: Yes: Alert, Oriented Psychiatric: Yes: Alert, Oriented Labs: CBC, BMP 01/11/17 11:11 01/09/17 06:00 INR, PTT INR 1.34 (0.82-1.09) H 01/07/17 05:15 Fibrinogen 375.0 mg/dL (238-498) 01/07/17 05:15 - ....Imaging Chest X-ray: Report Reviewed, Image Reviewed EKG: Report Reviewed, Image Reviewed Other: Report Reviewed, Image Reviewed Assessment/Plan 61 year old man h/o COPD, PAD s/o amputations, PNA, DM, CKD, CAD s/p NM, ischemic CM, Chronic systolic CHF admitted with ams, lethargy, dec appettite, presumed sepsis. Sepsis-presumed secondary to PNA and C. diff s/p chest tube -off Abx -Lasix was held due to intravascular depletion, given poor po intake would cont to hold Lasix -BP has been running low normal but has been stable CAD h/o NM, ischemic cardiomyopathy with chronic systolic CHF -holding lasix as above -ASA and Plavix again held, resume when possible -plan to re-introduce coreg when bp tolerates, currently still does not -hold off on CRISTHIAN-I/ARB given CJ on CKD
[2017-01-13] MEDS: ENOXAPARIN NA (PORCINE) 80 MG/0.8 ML DISP.SYRIN SQ SCH ×2 (12:53→22:25)
[2017-01-13] MEDS: BANATROL PLUS POWDER PACKET PO SCH ×2 (15:48→22:00)
[2017-01-13] MEDS: MIRTAZAPINE 15 MG TABLET (FP) PO SCH (22:18)
[2017-01-14] MEDS: INSULIN SLIDING SCALE (NOVOLOG) 1 VIAL SQ SCH ×4 (02:38→17:19)
[2017-01-14] MEDS: ALBUTEROL SO4 2.5/IPRATROPIUM 0.5 INH SOL 3 ML VIAL.NEB. NEB SCH ×3 (06:04→20:25)
--- NOTE | 2017-01-14 06:25 | PN ---
Progress Note (short form) - Note Progress Note: Patient seen and examined denies any complaints Last Vital Signs Temp Pulse Resp BP Pulse Ox 98.2 F 73 18 95/59 95 01/13/17 09:00 01/13/17 15:00 01/13/17 14:00 01/13/17 14:00 01/13/17 15:00 Cor: RSR, No murmurs, No gallops Lungs: Clear to P&A Abd: Soft, Normal bowel sounds, No organomegaly Ext:No significant edema Abnormal Lab Results 01/09/17 06:00 SAMARIA Screen Positive H Active Medications Generic Name Dose Route Start Last Admin Trade Name Freq PRN Reason Stop Dose Admin Acetaminophen 650 mg 01/07/17 16:45 01/11/17 22:21 Tylenol - PO 650 mg Q12H PRN Administration PAIN LEVEL 6-10 Albuterol/Ipratropium 1 amp 01/06/17 22:00 01/14/17 06:04 Duoneb - NEB Not Given TIDR [facility] Alprazolam 0.25 mg 01/10/17 16:18 01/11/17 01:46 Xanax - PO 0.25 mg Q8H PRN Administration ANXIETY Cholestyramine Resin 4 gm 01/10/17 12:00 01/13/17 22:18 Questran Light Packet - PO Not Given BID [facility] Collagenase 1 applic 01/07/17 10:00 01/13/17 10:52 Santyl - TP 1 applic DAILY [facility] Administration Divalproex Sodium 250 mg 01/07/17 10:00 01/13/17 10:51 Depakote Sprinkle Caps - PO 250 mg DAILY [facility] Administration Enoxaparin Sodium 70 mg 01/13/17 10:30 01/13/17 22:25 Lovenox - SQ 70 mg BID [facility] Administration Insulin Aspart 1 vial 01/07/17 00:00 01/14/17 02:38 Novolog Vial Sliding Scale - SQ Not Given Q6HPO [facility] Protocol Levetiracetam 500 mg 01/07/17 10:00 01/13/17 10:52 Keppra Xr - PO 500 mg DAILY [facility] Administration Mirtazapine 7.5 mg 01/07/17 22:00 01/13/17 22:18 Remeron - PO Not Given HS [facility] Ondansetron HCl 4 mg 01/09/17 14:00 08/10/17 17:47 Zofran Injection IVPB 4 mg Q8H PRN Administration NAUSEA AND/OR VOMITING Pantoprazole Sodium 40 mg 01/14/17 10:00 Protonix - PO DAILY [facility] Silver Sulfadiazine 1 applic 01/11/17 12:45 01/13/17 22:18 Silvadene - TP Not Given BID [facility] A/P Normocytic anemia Thrombocytopenia PNA , s/p chest tube placement C diff CKD Failure to thrive Thrombocytopenia, improving, likely etiology sepsis/abx, induced, HIT ab negative, thus far w/u negative, mild splenomegaly,HYACINTH normal, LA negative anemia, iron studies , B12,folate, TSH and protein studiesreviewed. Likely ACD/ ACI in the setting of CKD. Continue to monitor. MDS ? ? liver disease will send flow/FISH monitor SAMARIA titer 1:80 (low positive) PNA/Chest tube per Pulm
[2017-01-14] MEDS: BANATROL PLUS POWDER PACKET PO SCH ×3 (07:04→21:42)
[2017-01-14 07:59] LABS: MCHC 33.1 g/dl (32.0-35.9); MEAN CELL VOLUME 96.9 fl (80-96); MEAN PLT VOLUME 9.1 fl (7.5-11.1); PLATELET COUNT 165 K/MM3 (134-434); RDW 19.4 % (11.9-15.9); WHITE BLOOD COUNT 4.9 K/mm3 (4.0-10.0)
[2017-01-14 08:02] LABS: ALBUMIN 1.9 g/dl (3.4-5.0); ALK PHOS 76 U/L (45-117); ANION GAP 5 (8-16); BILIRUBIN,TOTAL 0.7 mg/dL (0.2-1.0); CO2 33 mmol/L (21-32); CREATININE 1.4 mg/dL (0.7-1.3); GLUCOSE,RANDOM 78 mg/dL (74-106); MAGNESIUM 2.1 mg/dL (1.8-2.4); PHOSPHOROUS 3.1 mg/dL (2.5-4.9); SGOT/AST 12 U/L (15-37); SGPT/ALT 8 U/L (12-78); TOT PROT 4.6 g/dl (6.4-8.2)
--- NOTE | 2017-01-14 08:38 | PN ---
Progress Note, Physician - Current Medication List Current Medications: Active Medications Acetaminophen (Tylenol -) 650 mg PO Q12H PRN PRN Reason: PAIN LEVEL 6-10 Last Admin: 01/11/17 22:21 Dose: 650 mg Albuterol/Ipratropium (Duoneb -) 1 amp NEB TIDR [facility] Last Admin: 01/14/17 06:04 Dose: Not Given Alprazolam (Xanax -) 0.25 mg PO Q8H PRN PRN Reason: ANXIETY Last Admin: 01/11/17 01:46 Dose: 0.25 mg Cholestyramine Resin (Questran Light Packet -) 4 gm PO BID [facility] Last Admin: 01/13/17 22:18 Dose: Not Given Collagenase (Santyl -) 1 applic TP DAILY [facility] Last Admin: 01/13/17 10:52 Dose: 1 applic Divalproex Sodium (Depakote Sprinkle Caps -) 250 mg PO DAILY [facility] Last Admin: 01/13/17 10:51 Dose: 250 mg Enoxaparin Sodium (Lovenox -) 70 mg SQ BID [facility] Last Admin: 01/13/17 22:25 Dose: 70 mg Insulin Aspart (Novolog Vial Sliding Scale -) 1 vial SQ Q6HPO [facility] PRN Reason: Protocol Last Admin: 01/14/17 07:04 Dose: Not Given Levetiracetam (Keppra Xr -) 500 mg PO DAILY [facility] Last Admin: 01/13/17 10:52 Dose: 500 mg Mirtazapine (Remeron -) 7.5 mg PO HS [facility] Last Admin: 01/13/17 22:18 Dose: Not Given Ondansetron HCl (Zofran Injection) 4 mg IVPB Q8H PRN PRN Reason: NAUSEA AND/OR VOMITING Last Admin: 01/09/17 17:47 Dose: 4 mg Pantoprazole Sodium (Protonix -) 40 mg PO DAILY [facility] Silver Sulfadiazine (Silvadene -) 1 applic TP BID [facility] Last Admin: 01/13/17 22:18 Dose: Not Given - Objective Vital Signs: Vital Signs Temperature 98.2 F 01/13/17 09:00 Pulse Rate 90 01/14/17 06:20 Respiratory Rate 20 01/14/17 06:20 Blood Pressure 97/60 01/14/17 06:20 O2 Sat by Pulse Oximetry (%) 95 01/13/17 15:00 Cardiovascular: Yes: Murmur, S1, S2 Respiratory: Yes: Diminished, Rales Gastrointestinal: Yes: Normal Bowel Sounds, Soft Labs: CBC, BMP 01/14/17 06:30 INR, PTT INR 1.34 (0.82-1.09) H 01/07/17 05:15 Fibrinogen 375.0 mg/dL (238-498) 01/07/17 05:15 Problem List - Problems (1) CHF exacerbation Code(s): I50.9 - HEART FAILURE, UNSPECIFIED Qualifiers: Congestive heart failure type: unspecified congestive heart failure type Qualified Code(s): I50.9 - Heart failure, unspecified (2) Pneumonia of both lower lobes Code(s): J18.9 - PNEUMONIA, UNSPECIFIED ORGANISM Qualifiers: Pneumonia type: aspiration pneumonia Aspiration pneumonia type: unspecified Qualified Code(s): J69.0 - Pneumonitis due to inhalation of food and vomit (3) 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 complication Code(s): E11.29 - TYPE 2 DIABETES MELLITUS W OTH DIABETIC KIDNEY COMPLICATION (4) CKD (chronic kidney disease) Code(s): N18.9 - CHRONIC KIDNEY DISEASE, UNSPECIFIED Qualifiers: Chronic kidney disease stage: stage 3 (moderate) Qualified Code(s): N18.3 - Chronic kidney disease, stage 3 (moderate) (5) Sepsis Code(s): A41.9 - SEPSIS, UNSPECIFIED ORGANISM Qualifiers: Sepsis type: sepsis due to unspecified organism Qualified Code(s): A41.9 - Sepsis, unspecified organism (6) Pleural effusion Code(s): J90 - PLEURAL EFFUSION, NOT ELSEWHERE CLASSIFIED (7) Appetite loss Code(s): R63.0 - ANOREXIA (8) Anxiety Code(s): F41.9 - ANXIETY DISORDER, UNSPECIFIED (9) Clostridium difficile diarrhea Code(s): A04.7 - ENTEROCOLITIS DUE TO CLOSTRIDIUM DIFFICILE Assessment/Plan - Problems (1) CHF exacerbation Assessment/Plan: Pulmonary and cardiology consult repeat CXR showed right pig tail intact and left pleural effusion--pulm f/u-- removal of ct Code(s): I50.9 - HEART FAILURE, UNSPECIFIED Qualifiers: Congestive heart failure type: unspecified congestive heart failure type Qualified Code(s): I50.9 - Heart failure, unspecified (2) Pneumonia of both lower lobes Assessment/Plan: switched to PO abx nebulizer txs Code(s): J18.9 - PNEUMONIA, UNSPECIFIED ORGANISM Qualifiers: Pneumonia type: aspiration pneumonia Aspiration pneumonia type: unspecified Qualified Code(s): J69.0 - Pneumonitis due to inhalation of food and vomit (3) 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 complication Code(s): E11.29 - TYPE 2 DIABETES MELLITUS W OTH DIABETIC KIDNEY COMPLICATION (4) Acute kidney failure Assessment/Plan: -secondary to sepsis, dehydration stable at this time continue to monitor Code(s): N17.9 - ACUTE KIDNEY FAILURE, UNSPECIFIED (5) Depressed Code(s): F32.9 - MAJOR DEPRESSIVE DISORDER, SINGLE EPISODE, UNSPECIFIED Qualifiers: Depression Type: major depressive disorder Major depression recurrence : single episode Active/Remission status: currently active Major depression episode severity: severe Psychotic features: without psychotic features Qualified Code(s): F32.2 - Major depressive disorder, single episode, severe without psychotic features (6) Anemia Assessment/Plan: -H/H improved and stable -continue to monitor labs -stool ob negative -iron stores are okay -b 12 is normal -repeat labs in AM Code(s): D64.9 - ANEMIA, UNSPECIFIED Qualifiers: Anemia type: unspecified type Qualified Code(s): D64.9 - Anemia, unspecified (7) Failure to thrive Assessment/Plan: -secondary to depression -encourage PO intake -GI saw the patient for possible PEG insertion, patient refuses now Code(s): [id number] - Qualifiers: Failure to thrive age range: in adult Qualified Code(s): R62.7 - Adult failure to thrive Assessment/Plan -U/S abdomen bedside done-reviewed -is refusing most of his meds -repeat labs in AM -still has diarrhea- on PO abx -recheck stools -still has drainage via pig tail, also noted left pleural effusion on last CXR, seen by pulmonary -seen by hematology, no HIT reported -lovenox until PEG is scheduled for DVT prophylaxis -keeps changing his mind regarding PEG, refuses today has poor PO intake
--- NOTE | 2017-01-14 10:12 | PN ---
Progress Note (short form) - Note Progress Note: PULMONARY Denies shortness of breath, cough or fevers. Minimal drainage from pigtail catheter but may have ?small air leak. Last Vital Signs Temp Pulse Resp BP Pulse Ox 98.2 F 90 20 97/60 95 01/13/17 09:00 01/14/17 06:20 01/14/17 06:20 01/14/17 06:20 01/13/17 15:00 Gen: NAD at rest Heart: RRR Lung: decreased breath sounds at the bases Abd: soft, nontender Ext: no edema, L BKA CBC, BMP 01/14/17 06:30 01/14/17 06:30 Active Medications Acetaminophen (Tylenol -) 650 mg PO Q12H PRN PRN Reason: PAIN LEVEL 6-10 Last Admin: 01/11/17 22:21 Dose: 650 mg Albuterol/Ipratropium (Duoneb -) 1 amp NEB TIDR [facility] Last Admin: 01/14/17 06:04 Dose: Not Given Alprazolam (Xanax -) 0.25 mg PO Q8H PRN PRN Reason: ANXIETY Last Admin: 01/11/17 01:46 Dose: 0.25 mg Cholestyramine Resin (Questran Light Packet -) 4 gm PO BID [facility] Last Admin: 01/13/17 22:18 Dose: Not Given Collagenase (Santyl -) 1 applic TP DAILY [facility] Last Admin: 01/13/17 10:52 Dose: 1 applic Divalproex Sodium (Depakote Sprinkle Caps -) 250 mg PO DAILY [facility] Last Admin: 01/13/17 10:51 Dose: 250 mg Enoxaparin Sodium (Lovenox -) 70 mg SQ BID [facility] Last Admin: 01/13/17 22:25 Dose: 70 mg Furosemide (Lasix -) 40 mg PO DAILY [facility] Insulin Aspart (Novolog Vial Sliding Scale -) 1 vial SQ Q6HPO [facility] PRN Reason: Protocol Last Admin: 01/14/17 07:04 Dose: Not Given Levetiracetam (Keppra Xr -) 500 mg PO DAILY [facility] Last Admin: 01/13/17 10:52 Dose: 500 mg Mirtazapine (Remeron -) 7.5 mg PO HS [facility] Last Admin: 01/13/17 22:18 Dose: Not Given Ondansetron HCl (Zofran Injection) 4 mg IVPB Q8H PRN PRN Reason: NAUSEA AND/OR VOMITING Last Admin: 01/09/17 17:47 Dose: 4 mg Pantoprazole Sodium (Protonix -) 40 mg PO DAILY [facility] Silver Sulfadiazine (Silvadene -) 1 applic TP BID [facility] Last Admin: 01/13/17 22:18 Dose: Not Given A/P Pneumonia s/p Septic Shock Chronic LV Systolic Heart Failure Chronic Hypercapneic Respiratory Failure Pleural Effusion - Transudative s/p right pigtail catheter drainage Altered Mental Status improving COPD Acute Kidney Injury HTN - antibiotics per ID - consider resuming heart failure regimen - monitor pigtail drainage - clamp chest tube in AM and repeat CXR after 1 hr, if CXR unremarkable will d/ c chest tube - DVT prophylaxis
[2017-01-14] MEDS ORDERED: PT OWN MED DRAWER 7, Y5N ONE ×2 (10:44→20:38)
[2017-01-14] MEDS: PANTOPRAZOLE 40 MG TABLET (FP) PO SCH (10:55)
[2017-01-14] MEDS: FUROSEMIDE 40 MG TABLET (FP) PO SCH (10:55)
[2017-01-14] MEDS: CHOLESTYRAMINE/ASPARTAME 4 GM PACKET PO SCH ×2 (10:55→21:42)
[2017-01-14] MEDS: levETIRAcetam XR 500 MG TAB PO SCH (10:56)
[2017-01-14] MEDS: ENOXAPARIN NA (PORCINE) 80 MG/0.8 ML DISP.SYRIN SQ SCH ×2 (10:56→21:33)
[2017-01-14] MEDS: DIVALPROEX SODIUM 125 MG SPRINKLE CAPS (FP) PO SCH (10:56)
[2017-01-14] MEDS: SILVER SULFADIAZINE 1% TOP CREAM 50 GM JAR TP SCH ×2 (10:57→21:42)
[2017-01-14] MEDS: COLLAGENASE CLOSTRIDIUM HIST. 30 GRAMS TUBE TP SCH (10:57)
[2017-01-14] MEDS: MIRTAZAPINE 15 MG TABLET (FP) PO SCH (21:37)
[2017-01-15] MEDS: INSULIN SLIDING SCALE (NOVOLOG) 1 VIAL SQ SCH ×5 (00:07→17:52)
[2017-01-15] MEDS: ALPRAZolam 0.25 MG TABLET PO PRN ×2 (00:13→14:58)
[2017-01-15] MEDS ORDERED: PT OWN MED DRAWER 7, Y5N ONE ×2 (01:36→09:57)
[2017-01-15] MEDS: BANATROL PLUS POWDER PACKET PO SCH ×3 (05:52→21:18)
[2017-01-15] MEDS: ALBUTEROL SO4 2.5/IPRATROPIUM 0.5 INH SOL 3 ML VIAL.NEB. NEB SCH ×2 (06:36→22:39)
--- NOTE | 2017-01-15 10:15 | PN ---
Progress Note (short form) - Note Progress Note: PULMONARY Denies shortness of breath, cough or fevers. Minimal drainage from pigtail catheter to water seal. CXR this AM did not capture apices but parenchyma appears more congested. Last Vital Signs Temp Pulse Resp BP Pulse Ox 98.5 F 100 H 20 112/66 95 01/14/17 22:00 01/15/17 06:00 01/15/17 06:00 01/15/17 06:00 01/13/17 15:00 Gen: NAD at rest Heart: RRR Lung: decreased breath sounds at the bases Abd: soft, nontender Ext: no edema, L BKA CBC, BMP 01/14/17 06:30 01/14/17 06:30 Active Medications Acetaminophen (Tylenol -) 650 mg PO Q12H PRN PRN Reason: PAIN LEVEL 6-10 Last Admin: 01/11/17 22:21 Dose: 650 mg Albuterol/Ipratropium (Duoneb -) 1 amp NEB TIDR [facility] Last Admin: 01/15/17 06:36 Dose: Not Given Alprazolam (Xanax -) 0.25 mg PO Q8H PRN PRN Reason: ANXIETY Last Admin: 01/15/17 00:13 Dose: 0.25 mg Cholestyramine Resin (Questran Light Packet -) 4 gm PO BID [facility] Last Admin: 01/14/17 21:42 Dose: Not Given Collagenase (Santyl -) 1 applic TP DAILY [facility] Last Admin: 01/14/17 10:57 Dose: 1 applic Divalproex Sodium (Depakote Sprinkle Caps -) 250 mg PO DAILY [facility] Last Admin: 01/14/17 10:56 Dose: 250 mg Enoxaparin Sodium (Lovenox -) 70 mg SQ BID [facility] Last Admin: 01/14/17 21:33 Dose: 70 mg Furosemide (Lasix -) 40 mg PO DAILY [facility] Last Admin: 01/14/17 10:55 Dose: 40 mg Insulin Aspart (Novolog Vial Sliding Scale -) 1 vial SQ Q6HPO [facility] PRN Reason: Protocol Last Admin: 01/15/17 06:30 Dose: Not Given Levetiracetam (Keppra Xr -) 500 mg PO DAILY [facility] Last Admin: 01/14/17 10:56 Dose: 500 mg Mirtazapine (Remeron -) 7.5 mg PO HS [facility] Last Admin: 01/14/17 21:37 Dose: 7.5 mg Pantoprazole Sodium (Protonix -) 40 mg PO DAILY [facility] Last Admin: 01/14/17 10:55 Dose: 40 mg Silver Sulfadiazine (Silvadene -) 1 applic TP BID [facility] Last Admin: 01/14/17 21:42 Dose: Not Given A/P Pneumonia s/p Septic Shock Chronic LV Systolic Heart Failure Chronic Hypercapneic Respiratory Failure Pleural Effusion - Transudative s/p right pigtail catheter drainage Altered Mental Status improving COPD Acute Kidney Injury HTN - antibiotics per ID - continue lasix - monitor pigtail drainage, will keep in for today given poor technique of film and more congestive changes - clamp chest tube in AM and repeat CXR after 1 hr, if CXR unremarkable will d/ c chest tube - DVT prophylaxis
[2017-01-15] MEDS: levETIRAcetam XR 500 MG TAB PO SCH (10:32)
[2017-01-15] MEDS: ENOXAPARIN NA (PORCINE) 80 MG/0.8 ML DISP.SYRIN SQ SCH (10:32)
[2017-01-15] MEDS: DIVALPROEX SODIUM 125 MG SPRINKLE CAPS (FP) PO SCH (10:32)
[2017-01-15] MEDS: FUROSEMIDE 40 MG TABLET (FP) PO SCH (10:32)
[2017-01-15] MEDS: CHOLESTYRAMINE/ASPARTAME 4 GM PACKET PO SCH ×2 (10:33→21:18)
[2017-01-15] MEDS: COLLAGENASE CLOSTRIDIUM HIST. 30 GRAMS TUBE TP SCH (10:33)
[2017-01-15] MEDS: PANTOPRAZOLE 40 MG TABLET (FP) PO SCH (10:33)
[2017-01-15] MEDS: SILVER SULFADIAZINE 1% TOP CREAM 50 GM JAR TP SCH ×2 (10:33→22:09)
[2017-01-15] MEDS ORDERED: CLOPIDOGREL BISULFATE 75 MG TABLET (FP) PO ONE (13:39)
[2017-01-15] MEDS ORDERED: CLOPIDOGREL BISULFATE 75 MG TABLET (FP) PO SCH (13:45)
--- NOTE | 2017-01-15 13:46 | PN ---
Progress Note, Physician Chief Complaint: FTT,Sepsis, Anemia, cdiff, Pleural effusion,refusing PEG. History of Present Illness: NAD, in bed, refused depakote, kepra and neb txs -refused PEG -refuses to talk, very irritable, wants to be left alone. -taking medications -not on any DVT prophylaxis - Current Medication List Current Medications: Active Medications Acetaminophen (Tylenol -) 650 mg PO Q12H PRN PRN Reason: PAIN LEVEL 6-10 Last Admin: 01/11/17 22:21 Dose: 650 mg Albuterol/Ipratropium (Duoneb -) 1 amp NEB TIDR [facility] Last Admin: 01/15/17 06:36 Dose: Not Given Alprazolam (Xanax -) 0.25 mg PO Q8H PRN PRN Reason: ANXIETY Last Admin: 01/15/17 00:13 Dose: 0.25 mg Aspirin (Asa -) 81 mg PO DAILY [facility] Cholestyramine Resin (Questran Light Packet -) 4 gm PO BID [facility] Last Admin: 01/15/17 10:33 Dose: Not Given Clopidogrel Bisulfate (Plavix -) 300 mg PO ONCE ONE Stop: 01/15/17 13:40 Clopidogrel Bisulfate (Plavix -) 75 mg PO DAILY [facility] Collagenase (Santyl -) 1 applic TP DAILY [facility] Last Admin: 01/15/17 10:33 Dose: Not Given Divalproex Sodium (Depakote Sprinkle Caps -) 250 mg PO DAILY [facility] Last Admin: 01/15/17 10:32 Dose: Not Given Furosemide (Lasix -) 40 mg PO DAILY [facility] Last Admin: 01/15/17 10:32 Dose: Not Given Insulin Aspart (Novolog Vial Sliding Scale -) 1 vial SQ Q6HPO [facility] PRN Reason: Protocol Last Admin: 01/15/17 06:30 Dose: Not Given Levetiracetam (Keppra Xr -) 500 mg PO DAILY [facility] Last Admin: 01/15/17 10:32 Dose: Not Given Mirtazapine (Remeron -) 7.5 mg PO HS [facility] Last Admin: 01/14/17 21:37 Dose: 7.5 mg Pantoprazole Sodium (Protonix -) 40 mg PO DAILY [facility] Last Admin: 01/15/17 10:33 Dose: Not Given Silver Sulfadiazine (Silvadene -) 1 applic TP BID [facility] Last Admin: 01/15/17 10:33 Dose: Not Given - Objective Vital Signs: Vital Signs Temperature 98.5 F 01/14/17 22:00 Pulse Rate 100 H 01/15/17 06:00 Respiratory Rate 20 01/15/17 06:00 Blood Pressure 112/66 01/15/17 06:00 O2 Sat by Pulse Oximetry (%) 95 01/13/17 15:00 Constitutional: Yes: No Distress, Calm, Cachectic Cardiovascular: Yes: Regular Rate and Rhythm Respiratory: Yes: Regular Gastrointestinal: Yes: Normal Bowel Sounds Musculoskeletal: Yes: WNL Extremities: Yes: Amputation (LLE) Edema: No Peripheral Pulses WNL: Yes Neurological: Yes: Alert, Oriented Psychiatric: Yes: Alert, Agitated Labs: CBC, BMP 01/14/17 06:30 01/14/17 06:30 INR, PTT INR 1.34 (0.82-1.09) H 01/07/17 05:15 Fibrinogen 375.0 mg/dL (238-498) 01/07/17 05:15 Problem List - Problems (1) CHF exacerbation Assessment/Plan: Pulmonary and cardiology consult repeat CXR showed right pig tail intact and left pleural effusion, worsening pulmonary congestion. Code(s): I50.9 - HEART FAILURE, UNSPECIFIED Qualifiers: Congestive heart failure type: unspecified congestive heart failure type Qualified Code(s): I50.9 - Heart failure, unspecified (2) 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 complication Code(s): E11.29 - TYPE 2 DIABETES MELLITUS W OTH DIABETIC KIDNEY COMPLICATION (3) Acute kidney failure Code(s): N17.9 - ACUTE KIDNEY FAILURE, UNSPECIFIED (4) Depressed Code(s): F32.9 - MAJOR DEPRESSIVE DISORDER, SINGLE EPISODE, UNSPECIFIED Qualifiers: Depression Type: major depressive disorder Major depression recurrence : single episode Active/Remission status: currently active Major depression episode severity: severe Psychotic features: without psychotic features Qualified Code(s): F32.2 - Major depressive disorder, single episode, severe without psychotic features (5) Anemia Assessment/Plan: -H/H improved and stable -continue to monitor labs -stool ob negative -iron stores are okay -b 12 is normal -repeat labs in AM Code(s): D64.9 - ANEMIA, UNSPECIFIED Qualifiers: Anemia type: unspecified type Qualified Code(s): D64.9 - Anemia, unspecified (6) Failure to thrive Assessment/Plan: -secondary to depression -encourage PO intake -refuses PEG, refuses medications Code(s): [id number] - Qualifiers: Failure to thrive age range: in adult Qualified Code(s): R62.7 - Adult failure to thrive (7) Pleural effusion Assessment/Plan: -CXR worsening pulmonary congestion -Clamp Chest tube in AM as per pulmonary, repeat CXR 1 hour thereafter. Code(s): J90 - PLEURAL EFFUSION, NOT ELSEWHERE CLASSIFIED Assessment/Plan -refuses PEG, medication, PO intake -repeat CXR in AM after clamping chest tube for 1 hour -restart plavix and aspirin -d/c lovenox -no abx for cdiff needed, only Ag positive -cholestyramine for post cdiff diarrhea
[2017-01-15] MEDS: oxyCODONE HCL 5 MG TABLET PO PRN (17:18)
[2017-01-15] MEDS: ASPIRIN 81 MG CHEWABLE TABLETS PO SCH (17:19)
[2017-01-15] MEDS: ACETAMINOPHEN 325 MG TABLET (FP) PO PRN (17:19)
[2017-01-15] MEDS ORDERED: oxyCODONE HCL 5 MG TABLET ONE (21:17)
[2017-01-15] MEDS: MIRTAZAPINE 15 MG TABLET (FP) PO SCH (21:19)
[2017-01-15] MEDS ORDERED: oxyCODONE HCL 5 MG TABLET PO ONE (21:30)
[2017-01-16] MEDS: INSULIN SLIDING SCALE (NOVOLOG) 1 VIAL SQ SCH ×4 (00:48→17:04)
[2017-01-16] MEDS: BANATROL PLUS POWDER PACKET PO SCH ×3 (06:24→22:54)
[2017-01-16] MEDS: ALBUTEROL SO4 2.5/IPRATROPIUM 0.5 INH SOL 3 ML VIAL.NEB. NEB SCH ×2 (06:57→21:35)
--- NOTE | 2017-01-16 08:06 | PN ---
Progress Note, Physician - Current Medication List Current Medications: Active Medications Acetaminophen (Tylenol -) 650 mg PO Q12H PRN PRN Reason: PAIN LEVEL 6-10 Last Admin: 01/15/17 17:19 Dose: 650 mg Albuterol/Ipratropium (Duoneb -) 1 amp NEB TIDR [facility] Last Admin: 01/16/17 06:57 Dose: Not Given Alprazolam (Xanax -) 0.25 mg PO Q8H PRN PRN Reason: ANXIETY Last Admin: 01/15/17 14:58 Dose: 0.25 mg Aspirin (Asa -) 81 mg PO DAILY [facility] Last Admin: 01/15/17 17:19 Dose: 81 mg Cholestyramine Resin (Questran Light Packet -) 4 gm PO BID [facility] Last Admin: 01/15/17 21:18 Dose: Not Given Clopidogrel Bisulfate (Plavix -) 75 mg PO DAILY [facility] Collagenase (Santyl -) 1 applic TP DAILY [facility] Last Admin: 01/15/17 10:33 Dose: Not Given Divalproex Sodium (Depakote Sprinkle Caps -) 250 mg PO DAILY [facility] Last Admin: 01/15/17 10:32 Dose: Not Given Furosemide (Lasix -) 40 mg PO DAILY [facility] Last Admin: 01/15/17 10:32 Dose: Not Given Insulin Aspart (Novolog Vial Sliding Scale -) 1 vial SQ Q6HPO [facility] PRN Reason: Protocol Last Admin: 01/16/17 06:24 Dose: Not Given Levetiracetam (Keppra Xr -) 500 mg PO DAILY [facility] Last Admin: 01/15/17 10:32 Dose: Not Given Mirtazapine (Remeron -) 7.5 mg PO HS [facility] Last Admin: 01/15/17 21:19 Dose: 7.5 mg Oxycodone HCl (Roxicodone -) 5 mg PO Q8H PRN PRN Reason: PAIN Last Admin: 01/15/17 17:18 Dose: 5 mg Pantoprazole Sodium (Protonix -) 40 mg PO DAILY [facility] Last Admin: 01/15/17 10:33 Dose: Not Given Silver Sulfadiazine (Silvadene -) 1 applic TP BID [facility] Last Admin: 01/15/17 22:09 Dose: Not Given - Objective Vital Signs: Vital Signs Temperature 98.7 F 01/15/17 18:00 Pulse Rate 95 H 01/16/17 06:00 Respiratory Rate 20 01/16/17 06:00 Blood Pressure 105/65 01/16/17 06:00 O2 Sat by Pulse Oximetry (%) 95 01/13/17 15:00 Cardiovascular: Yes: Regular Rate and Rhythm Respiratory: Yes: Regular, CTA Bilaterally Gastrointestinal: Yes: Normal Bowel Sounds, Soft Labs: CBC, BMP 01/14/17 06:30 01/14/17 06:30 INR, PTT INR 1.34 (0.82-1.09) H 01/07/17 05:15 Fibrinogen 375.0 mg/dL (238-498) 01/07/17 05:15 Problem List - Problems (1) CHF exacerbation Code(s): I50.9 - HEART FAILURE, UNSPECIFIED Qualifiers: Congestive heart failure type: unspecified congestive heart failure type Qualified Code(s): I50.9 - Heart failure, unspecified (2) Pneumonia of both lower lobes Code(s): J18.9 - PNEUMONIA, UNSPECIFIED ORGANISM Qualifiers: Pneumonia type: aspiration pneumonia Aspiration pneumonia type: unspecified Qualified Code(s): J69.0 - Pneumonitis due to inhalation of food and vomit (3) 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 complication Code(s): E11.29 - TYPE 2 DIABETES MELLITUS W OTH DIABETIC KIDNEY COMPLICATION (4) CKD (chronic kidney disease) Code(s): N18.9 - CHRONIC KIDNEY DISEASE, UNSPECIFIED Qualifiers: Chronic kidney disease stage: stage 3 (moderate) Qualified Code(s): N18.3 - Chronic kidney disease, stage 3 (moderate) (5) Sepsis Code(s): A41.9 - SEPSIS, UNSPECIFIED ORGANISM Qualifiers: Sepsis type: sepsis due to unspecified organism Qualified Code(s): A41.9 - Sepsis, unspecified organism (6) Pleural effusion Code(s): J90 - PLEURAL EFFUSION, NOT ELSEWHERE CLASSIFIED (7) Appetite loss Code(s): R63.0 - ANOREXIA (8) Anxiety Code(s): F41.9 - ANXIETY DISORDER, UNSPECIFIED (9) Clostridium difficile diarrhea Code(s): A04.7 - ENTEROCOLITIS DUE TO CLOSTRIDIUM DIFFICILE Assessment/Plan Problems (1) CHF exacerbation Assessment/Plan: Pulmonary and cardiology consult repeat CXR showed right pig tail intact and left pleural effusion, worsening pulmonary congestion. on lasix Code(s): I50.9 - HEART FAILURE, UNSPECIFIED Qualifiers: Congestive heart failure type: unspecified congestive heart failure type Qualified Code(s): I50.9 - Heart failure, unspecified (2) 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 complication Code(s): E11.29 - TYPE 2 DIABETES MELLITUS W OTH DIABETIC KIDNEY COMPLICATION (3) Acute kidney failure Code(s): N17.9 - ACUTE KIDNEY FAILURE, UNSPECIFIED (4) Depressed Code(s): F32.9 - MAJOR DEPRESSIVE DISORDER, SINGLE EPISODE, UNSPECIFIED Qualifiers: Depression Type: major depressive disorder Major depression recurrence : single episode Active/Remission status: currently active Major depression episode severity: severe Psychotic features: without psychotic features Qualified Code(s): F32.2 - Major depressive disorder, single episode, severe without psychotic features (5) Anemia Assessment/Plan: -H/H improved and stable -continue to monitor labs -stool ob negative -iron stores are okay -b 12 is normal -repeat labs in AM Code(s): D64.9 - ANEMIA, UNSPECIFIED Qualifiers: Anemia type: unspecified type Qualified Code(s): D64.9 - Anemia, unspecified (6) Failure to thrive Assessment/Plan: -secondary to depression -encourage PO intake -refused PEG, --now he agrees refuses medications Code(s): [id number] - Qualifiers: Failure to thrive age range: in adult Qualified Code(s): R62.7 - Adult failure to thrive (7) Pleural effusion Assessment/Plan: -CXR worsening pulmonary congestion--on lasix -Clamp Chest tube in AM as per pulmonary, repeat CXR 1 hour thereafter. Code(s): J90 - PLEURAL EFFUSION, NOT ELSEWHERE CLASSIFIED Assessment/Plan -refuses PEG, medication, PO intake -repeat CXR in AM after clamping chest tube for 1 hour -restart plavix and aspirin -d/c lovenox -no abx for cdiff needed, only Ag positive -cholestyramine for post cdiff diarrhea
--- NOTE | 2017-01-16 10:01 | PN ---
Progress Note (short form) - Note Progress Note: PULMONARY CXR with chest tube clamped without pneumothorax but revealing increasing congestion. Pt denies shortness of breath or chest pain. Last Vital Signs Temp Pulse Resp BP Pulse Ox 98.7 F 95 H 20 105/65 95 01/15/17 18:00 01/16/17 06:00 01/16/17 06:00 01/16/17 06:00 01/13/17 15:00 Gen: NAD at rest Heart: RRR Lung: decreased breath sounds at the bases Abd: soft, nontender Ext: no edema, L BKA CBC, BMP 01/14/17 06:30 01/14/17 06:30 Active Medications Acetaminophen (Tylenol -) 650 mg PO Q12H PRN PRN Reason: PAIN LEVEL 6-10 Last Admin: 01/15/17 17:19 Dose: 650 mg Albuterol/Ipratropium (Duoneb -) 1 amp NEB TIDR [facility] Last Admin: 01/16/17 06:57 Dose: Not Given Alprazolam (Xanax -) 0.25 mg PO Q8H PRN PRN Reason: ANXIETY Last Admin: 01/15/17 14:58 Dose: 0.25 mg Aspirin (Asa -) 81 mg PO DAILY [facility] Last Admin: 01/15/17 17:19 Dose: 81 mg Cholestyramine Resin (Questran Light Packet -) 4 gm PO BID [facility] Last Admin: 01/15/17 21:18 Dose: Not Given Clopidogrel Bisulfate (Plavix -) 75 mg PO DAILY [facility] Collagenase (Santyl -) 1 applic TP DAILY [facility] Last Admin: 01/15/17 10:33 Dose: Not Given Divalproex Sodium (Depakote Sprinkle Caps -) 250 mg PO DAILY [facility] Last Admin: 01/15/17 10:32 Dose: Not Given Furosemide (Lasix -) 40 mg PO DAILY [facility] Last Admin: 01/15/17 10:32 Dose: Not Given Insulin Aspart (Novolog Vial Sliding Scale -) 1 vial SQ Q6HPO [facility] PRN Reason: Protocol Last Admin: 01/16/17 06:24 Dose: Not Given Levetiracetam (Keppra Xr -) 500 mg PO DAILY [facility] Last Admin: 01/15/17 10:32 Dose: Not Given Mirtazapine (Remeron -) 7.5 mg PO HS [facility] Last Admin: 01/15/17 21:19 Dose: 7.5 mg Oxycodone HCl (Roxicodone -) 5 mg PO Q8H PRN PRN Reason: PAIN Last Admin: 01/15/17 17:18 Dose: 5 mg Pantoprazole Sodium (Protonix -) 40 mg PO DAILY [facility] Last Admin: 01/15/17 10:33 Dose: Not Given Silver Sulfadiazine (Silvadene -) 1 applic TP BID [facility] Last Admin: 01/15/17 22:09 Dose: Not Given A/P Pneumonia s/p Septic Shock Chronic LV Systolic Heart Failure Chronic Hypercapneic Respiratory Failure Pleural Effusion - Transudative s/p right pigtail catheter drainage Altered Mental Status improving COPD Acute Kidney Injury HTN - antibiotics per ID - continue lasix, will change to IV x 2 today - will d/c pigtail as it has not been draining - DVT prophylaxis
[2017-01-16] MEDS: ASPIRIN 81 MG CHEWABLE TABLETS PO SCH (10:39)
[2017-01-16] MEDS: ALPRAZolam 0.25 MG TABLET PO PRN (10:40)
[2017-01-16] MEDS: CLOPIDOGREL BISULFATE 75 MG TABLET (FP) PO SCH (10:40)
[2017-01-16] MEDS: DIVALPROEX SODIUM 125 MG SPRINKLE CAPS (FP) PO SCH (10:41)
[2017-01-16] MEDS: PANTOPRAZOLE 40 MG TABLET (FP) PO SCH (10:41)
[2017-01-16] MEDS: levETIRAcetam XR 500 MG TAB PO SCH (10:42)
[2017-01-16] MEDS: CHOLESTYRAMINE/ASPARTAME 4 GM PACKET PO SCH ×3 (10:42→22:54)
[2017-01-16] MEDS: FUROSEMIDE 40 MG/4 ML INJECTABLE VIAL IVPUSH SCH ×2 (10:46→22:00)
[2017-01-16] MEDS: COLLAGENASE CLOSTRIDIUM HIST. 30 GRAMS TUBE TP SCH (10:47)
[2017-01-16] MEDS: SILVER SULFADIAZINE 1% TOP CREAM 50 GM JAR TP SCH ×2 (10:47→22:55)
[2017-01-16] MEDS: MIRTAZAPINE 15 MG TABLET (FP) PO SCH (22:54)
[2017-01-16] MEDS: oxyCODONE HCL 5 MG TABLET PO PRN (23:30)
[2017-01-16] MEDS: ACETAMINOPHEN 325 MG TABLET (FP) PO PRN (23:30)
[2017-01-17] MEDS: ALBUTEROL SO4 2.5/IPRATROPIUM 0.5 INH SOL 3 ML VIAL.NEB. NEB SCH ×4 (05:41→21:51)
[2017-01-17] MEDS: BANATROL PLUS POWDER PACKET PO SCH ×3 (06:56→21:05)
[2017-01-17] MEDS: INSULIN SLIDING SCALE (NOVOLOG) 1 VIAL SQ SCH ×4 (07:20→18:42)
[2017-01-17] MEDS ORDERED: PT OWN MED DRAWER 7, Y5N ONE (09:48)
[2017-01-17] MEDS: PANTOPRAZOLE 40 MG TABLET (FP) PO SCH (09:51)
[2017-01-17] MEDS: ACETAMINOPHEN 325 MG TABLET (FP) PO PRN (09:52)
[2017-01-17] MEDS: ASPIRIN 81 MG CHEWABLE TABLETS PO SCH (09:52)
[2017-01-17] MEDS: ALPRAZolam 0.25 MG TABLET PO PRN ×2 (09:52→22:31)
[2017-01-17] MEDS: oxyCODONE HCL 5 MG TABLET PO PRN (09:52)
[2017-01-17] MEDS: DIVALPROEX SODIUM 125 MG SPRINKLE CAPS (FP) PO SCH (09:53)
[2017-01-17] MEDS: COLLAGENASE CLOSTRIDIUM HIST. 30 GRAMS TUBE TP SCH (09:54)
[2017-01-17] MEDS: levETIRAcetam XR 500 MG TAB PO SCH (09:54)
[2017-01-17] MEDS: CLOPIDOGREL BISULFATE 75 MG TABLET (FP) PO SCH (09:54)
[2017-01-17] MEDS: SILVER SULFADIAZINE 1% TOP CREAM 50 GM JAR TP SCH ×2 (09:54→21:05)
[2017-01-17] MEDS: CHOLESTYRAMINE/ASPARTAME 4 GM PACKET PO SCH ×2 (09:54→21:05)
--- NOTE | 2017-01-17 10:15 | PN ---
Progress Note (short form) - Note Progress Note: PULMONARY AWAKE/ALERT "I NEED A PROSTHESIS FOR MY LEG" HAD A "GUSH" OF FLUID FROM PIGTAIL SITE S/P REMOVAL VSS/AFEBRILE ANICTERIC/PALE DIMINISHED BREATH SOUNDS RIGHT BASE S1S2 BS+ LEFT BKA/ LABS/MEDS/IMAGING NOTES REVIEWED Pneumonia s/p Septic Shock Chronic LV Systolic Heart Failure Chronic Hypercapneic Respiratory Failure Pleural Effusion - Transudative s/p right pigtail catheter drainage Altered Mental Status improving COPD Acute Kidney Injury HTN - antibiotics per ID - continue lasix, - check CXR today - DVT prophylaxis Larissa HUSSEIN MD
[2017-01-17] MEDS: FUROSEMIDE 40 MG/4 ML INJECTABLE VIAL IVPUSH SCH (12:55)
--- NOTE | 2017-01-17 13:32 | PN ---
Progress Note (short form) - Note Progress Note: Patient seen and examined Not very communicative. Frustrated about hospital stay. Last Vital Signs Temp Pulse Resp BP Pulse Ox 98.1 F 103 H 18 106/63 90 L 01/17/17 08:36 01/17/17 08:36 01/17/17 09:00 01/17/17 08:36 01/17/17 09:00 HEENT: [place], EOM Intact Cor: RSR, No murmurs, No gallops Lungs:diminished breath sounds Abd: Soft, Normal bowel sounds, No organomegaly Ext:No significant edema; L-BKA Skin: No rashes, Integument intact CBC, BMP 01/14/17 06:30 01/14/17 06:30 Current Medications Generic Name Dose Route Start Last Admin Trade Name Freq PRN Reason Stop Dose Admin Acetaminophen 650 mg 01/07/17 16:45 01/17/17 09:52 Tylenol - PO 650 mg Q12H PRN Administration PAIN LEVEL 6-10 Albuterol/Ipratropium 1 amp 01/06/17 22:00 01/17/17 07:20 Duoneb - NEB Not Given TIDR [facility] Alprazolam 0.25 mg 01/10/17 16:18 01/17/17 09:52 Xanax - PO 0.25 mg Q8H PRN Administration ANXIETY Aspirin 81 mg 01/15/17 13:45 01/17/17 09:52 Asa - PO 81 mg DAILY [facility] Administration Cholestyramine Resin 4 gm 01/10/17 12:00 01/17/17 09:54 Questran Light Packet - PO Not Given BID [facility] Clopidogrel Bisulfate 75 mg 01/16/17 10:00 01/17/17 09:54 Plavix - PO Not Given DAILY [facility] Collagenase 1 applic 01/07/17 10:00 01/17/17 09:54 Santyl - TP 1 applic DAILY [facility] Administration Divalproex Sodium 250 mg 01/07/17 10:00 01/17/17 09:53 Depakote Sprinkle Caps - PO 250 mg DAILY [facility] Administration Furosemide 40 mg 01/17/17 12:00 01/17/17 12:55 Lasix Injection - IVPUSH 40 mg DAILY [facility] Administration Insulin Aspart 1 vial 01/07/17 00:00 01/17/17 12:56 Novolog Vial Sliding Scale - SQ Not Given Q6HPO [facility] Protocol Levetiracetam 500 mg 01/07/17 10:00 01/17/17 09:54 Keppra Xr - PO 500 mg DAILY [facility] Administration Mirtazapine 7.5 mg 01/07/17 22:00 01/16/17 22:54 Remeron - PO Not Given HS [facility] Oxycodone HCl 5 mg 01/15/17 16:47 01/17/17 09:52 Roxicodone - PO 5 mg Q8H PRN Administration PAIN Pantoprazole Sodium 40 mg 01/14/17 10:00 01/17/17 09:51 Protonix - PO 40 mg DAILY [facility] Administration Silver Sulfadiazine 1 applic 01/11/17 12:45 01/17/17 09:54 Silvadene - TP 1 applic BID [facility] Administration Impression: Anemia likely multifactorial Normal B-12, TFT's, Folate, Fe++ studies with low TIBC , elevated ferritin and high Fe++ saturation, no "M" component and normal immunofixation. Allcompatible with chronci disease, infection, CKD/RUBY. Thrombocytopenia has resolved suggesting infection as etiology. Flow cytometry awaited. Problem List - Problems (1) Pleural effusion Code(s): J90 - PLEURAL EFFUSION, NOT ELSEWHERE CLASSIFIED (2) Pneumonia of both lower lobes Code(s): J18.9 - PNEUMONIA, UNSPECIFIED ORGANISM Qualifiers: Pneumonia type: aspiration pneumonia Aspiration pneumonia type: unspecified Qualified Code(s): J69.0 - Pneumonitis due to inhalation of food and vomit (3) Thrombocytopenia Code(s): D69.6 - THROMBOCYTOPENIA, UNSPECIFIED (4) 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 complication Code(s): E11.29 - TYPE 2 DIABETES MELLITUS W OTH DIABETIC KIDNEY COMPLICATION (5) RUBY (acute kidney injury) Code(s): N17.9 - ACUTE KIDNEY FAILURE, UNSPECIFIED (6) Anemia Code(s): D64.9 - ANEMIA, UNSPECIFIED Qualifiers: Anemia type: unspecified type Qualified Code(s): D64.9 - Anemia, unspecified
--- NOTE | 2017-01-17 16:34 | PN ---
Progress Note, Physician Chief Complaint: FTT,Sepsis, Anemia, cdiff, Pleural effusion,refusing PEG. History of Present Illness: NAD, in bed, refused depakote, kepra and neb txs -refused PEG -refuses to talk, very irritable, wants to be left alone. -taking medications -not on any DVT prophylaxis -seen by hematology and pulmonary -CXR with chest tube clamped without pneumothorax but revealed increased congestion. Pt denies shortness of breath or chest pain. -chest tube removed as it was not draining. - Current Medication List Current Medications: Active Medications Acetaminophen (Tylenol -) 650 mg PO Q12H PRN PRN Reason: PAIN LEVEL 6-10 Last Admin: 01/17/17 09:52 Dose: 650 mg Albuterol/Ipratropium (Duoneb -) 1 amp NEB TIDR [facility] Last Admin: 01/17/17 14:14 Dose: Not Given Alprazolam (Xanax -) 0.25 mg PO Q8H PRN PRN Reason: ANXIETY Last Admin: 01/17/17 09:52 Dose: 0.25 mg Aspirin (Asa -) 81 mg PO DAILY [facility] Last Admin: 01/17/17 09:52 Dose: 81 mg Cholestyramine Resin (Questran Light Packet -) 4 gm PO BID [facility] Last Admin: 01/17/17 09:54 Dose: Not Given Clopidogrel Bisulfate (Plavix -) 75 mg PO DAILY [facility] Last Admin: 01/17/17 09:54 Dose: Not Given Collagenase (Santyl -) 1 applic TP DAILY [facility] Last Admin: 01/17/17 09:54 Dose: 1 applic Divalproex Sodium (Depakote Sprinkle Caps -) 250 mg PO DAILY [facility] Last Admin: 01/17/17 09:53 Dose: 250 mg Furosemide (Lasix Injection -) 40 mg IVPUSH DAILY [facility] Last Admin: 01/17/17 12:55 Dose: 40 mg Insulin Aspart (Novolog Vial Sliding Scale -) 1 vial SQ Q6HPO [facility] PRN Reason: Protocol Last Admin: 01/17/17 12:56 Dose: Not Given Levetiracetam (Keppra Xr -) 500 mg PO DAILY [facility] Last Admin: 01/17/17 09:54 Dose: 500 mg Mirtazapine (Remeron -) 7.5 mg PO HS [facility] Last Admin: 01/16/17 22:54 Dose: Not Given Oxycodone HCl (Roxicodone -) 5 mg PO Q8H PRN PRN Reason: PAIN Last Admin: 01/17/17 09:52 Dose: 5 mg Pantoprazole Sodium (Protonix -) 40 mg PO DAILY [facility] Last Admin: 01/17/17 09:51 Dose: 40 mg Silver Sulfadiazine (Silvadene -) 1 applic TP BID [facility] Last Admin: 01/17/17 09:54 Dose: 1 applic - Objective Vital Signs: Vital Signs Temperature 98.1 F 01/17/17 08:36 Pulse Rate 103 H 01/17/17 08:36 Respiratory Rate 18 01/17/17 09:00 Blood Pressure 106/63 01/17/17 08:36 O2 Sat by Pulse Oximetry (%) 90 L 01/17/17 09:00 Constitutional: Yes: Well Nourished, No Distress, Calm Neurological: Yes: Alert Psychiatric: Yes: Alert, Agitated Labs: CBC, BMP 01/14/17 06:30 01/14/17 06:30 INR, PTT INR 1.34 (0.82-1.09) H 01/07/17 05:15 Fibrinogen 375.0 mg/dL (238-498) 01/07/17 05:15 Problem List - Problems (1) CHF exacerbation Assessment/Plan: Pulmonary and cardiology consult repeat CXR showed right pig tail intact and left pleural effusion, worsening pulmonary congestion. chest tube removed today IV lasix today and tomorrow Code(s): I50.9 - HEART FAILURE, UNSPECIFIED Qualifiers: Congestive heart failure type: unspecified congestive heart failure type Qualified Code(s): I50.9 - Heart failure, unspecified (2) 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 complication Code(s): E11.29 - TYPE 2 DIABETES MELLITUS W OTH DIABETIC KIDNEY COMPLICATION (3) Acute kidney failure Assessment/Plan: -secondary to sepsis, dehydration stable at this time continue to monitor Code(s): N17.9 - ACUTE KIDNEY FAILURE, UNSPECIFIED (4) Depressed Code(s): F32.9 - MAJOR DEPRESSIVE DISORDER, SINGLE EPISODE, UNSPECIFIED Qualifiers: Depression Type: major depressive disorder Major depression recurrence : single episode Active/Remission status: currently active Major depression episode severity: severe Psychotic features: without psychotic features Qualified Code(s): F32.2 - Major depressive disorder, single episode, severe without psychotic features (5) Anemia Assessment/Plan: -H/H improved and stable -continue to monitor labs -stool ob negative -iron stores are okay -b 12 is normal -repeat labs in AM -flow cytometry ordered by Hematology Code(s): D64.9 - ANEMIA, UNSPECIFIED Qualifiers: Anemia type: unspecified type Qualified Code(s): D64.9 - Anemia, unspecified (6) Failure to thrive Assessment/Plan: -secondary to depression -encourage PO intake -refuses PEG, refuses medications Code(s): [id number] - Qualifiers: Failure to thrive age range: in adult Qualified Code(s): R62.7 - Adult failure to thrive (7) Pleural effusion Code(s): J90 - PLEURAL EFFUSION, NOT ELSEWHERE CLASSIFIED Assessment/Plan see problem list
[2017-01-17] MEDS ORDERED: INSULIN (NOVOLOG) ASPART 100 UNITS/ML 10ML VIAL ONE (16:35)
[2017-01-17] MEDS: MIRTAZAPINE 15 MG TABLET (FP) PO SCH (21:26)
[2017-01-18] MEDS: INSULIN SLIDING SCALE (NOVOLOG) 1 VIAL SQ SCH ×4 (00:20→17:48)
[2017-01-18] MEDS: BANATROL PLUS POWDER PACKET PO SCH ×2 (05:52→15:00)
[2017-01-18] MEDS: ALBUTEROL SO4 2.5/IPRATROPIUM 0.5 INH SOL 3 ML VIAL.NEB. NEB SCH ×3 (07:01→14:32)
[2017-01-18] MEDS ORDERED: PT OWN MED DRAWER 7, Y5N ONE (10:17)
[2017-01-18] MEDS: FUROSEMIDE 40 MG/4 ML INJECTABLE VIAL IVPUSH SCH (10:20)
[2017-01-18] MEDS: COLLAGENASE CLOSTRIDIUM HIST. 30 GRAMS TUBE TP SCH (10:21)
[2017-01-18] MEDS: SILVER SULFADIAZINE 1% TOP CREAM 50 GM JAR TP SCH ×2 (10:22→22:00)
--- NOTE | 2017-01-18 12:11 | PN ---
Progress Note (short form) - Note Progress Note: PULMONARY Denies shortness of breath or chest pain. Last Vital Signs Temp Pulse Resp BP Pulse Ox 98.1 F 98 H 22 108/65 90 L 01/17/17 22:00 01/18/17 10:00 01/18/17 10:00 01/18/17 10:00 01/17/17 21:00 Gen: NAD at rest Heart: RRR Lung: decreased breath sounds at the bases Abd: soft, nontender Ext: no edema, L BKA CBC, BMP 01/14/17 06:30 01/14/17 06:30 Active Medications Acetaminophen (Tylenol -) 650 mg PO Q12H PRN PRN Reason: PAIN LEVEL 6-10 Last Admin: 01/17/17 09:52 Dose: 650 mg Albuterol/Ipratropium (Duoneb -) 1 amp NEB TIDR [facility] Alprazolam (Xanax -) 0.25 mg PO Q8H PRN PRN Reason: ANXIETY Last Admin: 01/17/17 22:31 Dose: 0.25 mg Aspirin (Asa -) 81 mg PO DAILY [facility] Last Admin: 01/17/17 09:52 Dose: 81 mg Cholestyramine Resin (Questran Light Packet -) 4 gm PO BID [facility] Last Admin: 01/17/17 21:05 Dose: Not Given Clopidogrel Bisulfate (Plavix -) 75 mg PO DAILY [facility] Last Admin: 01/17/17 09:54 Dose: Not Given Collagenase (Santyl -) 1 applic TP DAILY [facility] Last Admin: 01/18/17 10:21 Dose: 1 applic Divalproex Sodium (Depakote Sprinkle Caps -) 250 mg PO DAILY [facility] Last Admin: 01/17/17 09:53 Dose: 250 mg Furosemide (Lasix Injection -) 40 mg IVPUSH DAILY [facility] Last Admin: 01/18/17 10:20 Dose: 40 mg Insulin Aspart (Novolog Vial Sliding Scale -) 1 vial SQ Q6HPO [facility] PRN Reason: Protocol Last Admin: 01/18/17 05:57 Dose: Not Given Levetiracetam (Keppra Xr -) 500 mg PO DAILY [facility] Last Admin: 01/17/17 09:54 Dose: 500 mg Mirtazapine (Remeron -) 7.5 mg PO HS [facility] Last Admin: 01/17/17 21:26 Dose: 7.5 mg Oxycodone HCl (Roxicodone -) 5 mg PO Q8H PRN PRN Reason: PAIN Last Admin: 01/17/17 09:52 Dose: 5 mg Pantoprazole Sodium (Protonix -) 40 mg PO DAILY [facility] Last Admin: 01/17/17 09:51 Dose: 40 mg Silver Sulfadiazine (Silvadene -) 1 applic TP BID [facility] Last Admin: 01/18/17 10:22 Dose: 1 applic A/P Pneumonia s/p Septic Shock Chronic LV Systolic Heart Failure Chronic Hypercapneic Respiratory Failure Pleural Effusion - Transudative s/p right pigtail catheter drainage Altered Mental Status improving COPD Acute Kidney Injury HTN - antibiotics completed - continue IV lasix - monitor urine output, creatinine - repeat CXR in AM - DVT prophylaxis
--- NOTE | 2017-01-18 12:18 | PN ---
Progress Note, Physician Chief Complaint: FTT, sepsis (resolved), anemia History of Present Illness: History of Present Illness: Patient slightly agitated, lying in bed,NAD, refused CXR. Denies chest pain and SOB at this time. Patient reported he is not eating because he does not want the food. - Current Medication List Current Medications: Active Medications Acetaminophen (Tylenol -) 650 mg PO Q12H PRN PRN Reason: PAIN LEVEL 6-10 Last Admin: 01/17/17 09:52 Dose: 650 mg Albuterol/Ipratropium (Duoneb -) 1 amp NEB TIDR [facility] Alprazolam (Xanax -) 0.25 mg PO Q8H PRN PRN Reason: ANXIETY Last Admin: 01/17/17 22:31 Dose: 0.25 mg Aspirin (Asa -) 81 mg PO DAILY [facility] Last Admin: 01/17/17 09:52 Dose: 81 mg Cholestyramine Resin (Questran Light Packet -) 4 gm PO BID [facility] Last Admin: 01/17/17 21:05 Dose: Not Given Clopidogrel Bisulfate (Plavix -) 75 mg PO DAILY [facility] Last Admin: 01/17/17 09:54 Dose: Not Given Collagenase (Santyl -) 1 applic TP DAILY [facility] Last Admin: 01/18/17 10:21 Dose: 1 applic Divalproex Sodium (Depakote Sprinkle Caps -) 250 mg PO DAILY [facility] Last Admin: 01/17/17 09:53 Dose: 250 mg Furosemide (Lasix Injection -) 40 mg IVPUSH DAILY [facility] Last Admin: 01/18/17 10:20 Dose: 40 mg Insulin Aspart (Novolog Vial Sliding Scale -) 1 vial SQ Q6HPO [facility] PRN Reason: Protocol Last Admin: 01/18/17 05:57 Dose: Not Given Levetiracetam (Keppra Xr -) 500 mg PO DAILY [facility] Last Admin: 01/17/17 09:54 Dose: 500 mg Mirtazapine (Remeron -) 7.5 mg PO HS [facility] Last Admin: 01/17/17 21:26 Dose: 7.5 mg Oxycodone HCl (Roxicodone -) 5 mg PO Q8H PRN PRN Reason: PAIN Last Admin: 01/17/17 09:52 Dose: 5 mg Pantoprazole Sodium (Protonix -) 40 mg PO DAILY [facility] Last Admin: 01/17/17 09:51 Dose: 40 mg Silver Sulfadiazine (Silvadene -) 1 applic TP BID [facility] Last Admin: 01/18/17 10:22 Dose: 1 applic - Objective Vital Signs: Vital Signs Temperature 98.1 F 01/17/17 22:00 Pulse Rate 98 H 01/18/17 10:00 Respiratory Rate 22 01/18/17 10:00 Blood Pressure 108/65 01/18/17 10:00 O2 Sat by Pulse Oximetry (%) 90 L 01/17/17 21:00 Constitutional: Yes: No Distress (slightly agitated but responds to questions) Eyes: Yes: Conjunctiva Clear, EOM Intact HENT: Yes: Atraumatic, Normocephalic Neck: Yes: Supple, Trachea Midline Cardiovascular: Yes: Regular Rate and Rhythm Respiratory: Yes: Regular, CTA Bilaterally Gastrointestinal: Yes: Normal Bowel Sounds, Soft Extremities: Yes: Amputation (S/P LEFT BKA) Edema: No Peripheral Pulses WNL: Yes Neurological: Yes: Alert, Oriented Psychiatric: Yes: Alert, Oriented Labs: CBC, BMP 01/14/17 06:30 01/14/17 06:30 INR, PTT INR 1.34 (0.82-1.09) H 01/07/17 05:15 Fibrinogen 375.0 mg/dL (238-498) 01/07/17 05:15 Problem List - Problems (1) Failure to thrive Code(s): [id number] - Qualifiers: Failure to thrive age range: in adult Qualified Code(s): R62.7 - Adult failure to thrive (2) Pneumonia of both lower lobes Code(s): J18.9 - PNEUMONIA, UNSPECIFIED ORGANISM Qualifiers: Pneumonia type: aspiration pneumonia Aspiration pneumonia type: unspecified Qualified Code(s): J69.0 - Pneumonitis due to inhalation of food and vomit (3) 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 complication Code(s): E11.29 - TYPE 2 DIABETES MELLITUS W OTH DIABETIC KIDNEY COMPLICATION (4) Acute on chronic systolic (congestive) heart failure Code(s): I50.23 - ACUTE ON CHRONIC SYSTOLIC (CONGESTIVE) HEART FAILURE (5) CAD (coronary artery disease) Code(s): I25.10 - ATHSCL HEART DISEASE OF [place] CORONARY ARTERY W/O ANG PCTRS (6) CKD (chronic kidney disease) Code(s): N18.9 - CHRONIC KIDNEY DISEASE, UNSPECIFIED Qualifiers: Chronic kidney disease stage: stage 3 (moderate) Qualified Code(s): N18.3 - Chronic kidney disease, stage 3 (moderate) (7) Dehydration Code(s): E86.0 - DEHYDRATION (8) Depressed Code(s): F32.9 - MAJOR DEPRESSIVE DISORDER, SINGLE EPISODE, UNSPECIFIED Qualifiers: Depression Type: major depressive disorder Major depression recurrence : single episode Active/Remission status: currently active Major depression episode severity: severe Psychotic features: without psychotic features Qualified Code(s): F32.2 - Major depressive disorder, single episode, severe without psychotic features (9) Pneumonia Code(s): J18.9 - PNEUMONIA, UNSPECIFIED ORGANISM Qualifiers: Pneumonia type: aspiration pneumonia Laterality: bilateral Lung location: lower lobe of lung (10) CHF (congestive heart failure) Code(s): I50.9 - HEART FAILURE, UNSPECIFIED Qualifiers: (11) Diabetes Code(s): E11.9 - TYPE 2 DIABETES MELLITUS WITHOUT COMPLICATIONS (12) Diabetes mellitus type 2 in nonobese Code(s): E11.9 - TYPE 2 DIABETES MELLITUS WITHOUT COMPLICATIONS (13) Hyperlipemia Code(s): E78.5 - HYPERLIPIDEMIA, UNSPECIFIED (14) Thrombocytopenia Code(s): D69.6 - THROMBOCYTOPENIA, UNSPECIFIED Assessment/Plan (1) CHF exacerbation Assessment/Plan: -Pulmonary and cardiology consult -Refused CXR today -Continue IV Lasix Code(s): I50.9 - HEART FAILURE, UNSPECIFIED Qualifiers: Congestive heart failure type: unspecified congestive heart failure type Qualified Code(s): I50.9 - Heart failure, unspecified (2) 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 complication Code(s): E11.29 - TYPE 2 DIABETES MELLITUS W OTH DIABETIC KIDNEY COMPLICATION (3) Acute kidney failure Assessment/Plan: -secondary to sepsis, dehydration -monitor kidney function -stable at this time Code(s): N17.9 - ACUTE KIDNEY FAILURE, UNSPECIFIED (4) Depressed Code(s): F32.9 - MAJOR DEPRESSIVE DISORDER, SINGLE EPISODE, UNSPECIFIED Qualifiers: Depression Type: major depressive disorder Major depression recurrence : single episode Active/Remission status: currently active Major depression episode severity: severe Psychotic features: without psychotic features Qualified Code(s): F32.2 - Major depressive disorder, single episode, severe without psychotic features (5) Anemia Assessment/Plan: -H/H improved and stable -continue to monitor labs -flow cytometry ordered by Hematology Code(s): D64.9 - ANEMIA, UNSPECIFIED Qualifiers: Anemia type: unspecified type Qualified Code(s): D64.9 - Anemia, unspecified (6) Failure to thrive Assessment/Plan: -secondary to depression -encourage PO intake -refuses PEG, refuses medications Code(s): [id number] - Qualifiers: Failure to thrive age range: in adult Qualified Code(s): R62.7 - Adult failure to thrive (7) Pleural effusion Code(s): J90 - PLEURAL EFFUSION, NOT ELSEWHERE CLASSIFIED
--- NOTE | 2017-01-18 14:33 | PN ---
GI Progress Note Subjective: Patient for PEG placement Problem with patient refusing after signing consent He now is agreeable to having PEG placed after I explained the alternative. - Objective Vital Signs: Vital Signs Temperature 98.1 F 01/17/17 22:00 Pulse Rate 98 H 01/18/17 10:00 Respiratory Rate 22 01/18/17 10:00 Blood Pressure 108/65 01/18/17 10:00 O2 Sat by Pulse Oximetry (%) 90 L 01/17/17 21:00 Constitutional: Cachectic HENT: Yes: Normocephalic Neck: Yes: Supple Cardiovascular: Yes: Regular Rate and Rhythm Respiratory: Yes: CTA Bilaterally Gastrointestinal Inspection: Yes: Other (scaphoid) ...Auscultate: Yes: Normoactive Bowel Sounds ...Palpate: Yes: Soft. No: Tenderness ...Percussion: Yes: Dullness ...Rectal Exam: Yes: Guaiac Negative (done earlier) Labs: CBC, BMP 01/14/17 06:30 01/14/17 06:30 INR, PTT INR 1.34 (0.82-1.09) H 01/07/17 05:15 Fibrinogen 375.0 mg/dL (238-498) 01/07/17 05:15 Hepatic Panel Total Bilirubin 0.7 mg/dL (0.2-1.0) 01/14/17 06:30 Direct Bilirubin 0.4 mg/dL (0.0-0.2) H 01/02/17 05:20 AST 12 U/L (15-37) L 01/14/17 06:30 ALT 8 U/L (12-78) L 01/14/17 06:30 Alkaline Phosphatase 76 U/L (45-117) 01/14/17 06:30 Albumin 1.9 g/dl (3.4-5.0) L 01/14/17 06:30 - ....Imaging Chest X-ray: Report Reviewed Cat Scan: Report Reviewed Assessment/Plan For PEG Mon 8 AM barring unforeseen circumstances NPO after [place] Sun Continue to hold plavix
[2017-01-18] MEDS: PANTOPRAZOLE 40 MG TABLET (FP) PO SCH (14:59)
[2017-01-18] MEDS: levETIRAcetam XR 500 MG TAB PO SCH (14:59)
[2017-01-18] MEDS: CHOLESTYRAMINE/ASPARTAME 4 GM PACKET PO SCH ×2 (14:59→22:17)
[2017-01-18] MEDS: DIVALPROEX SODIUM 125 MG SPRINKLE CAPS (FP) PO SCH (14:59)
[2017-01-18] MEDS: oxyCODONE HCL 5 MG TABLET PO PRN (22:32)
[2017-01-18] MEDS: MIRTAZAPINE 15 MG TABLET (FP) PO SCH (22:43)
[2017-01-19] MEDS: ALBUTEROL SO4 2.5/IPRATROPIUM 0.5 INH SOL 3 ML VIAL.NEB. NEB SCH ×3 (06:00→21:50)
[2017-01-19] MEDS: BANATROL PLUS POWDER PACKET PO SCH ×4 (06:53→21:04)
[2017-01-19] MEDS: INSULIN SLIDING SCALE (NOVOLOG) 1 VIAL SQ SCH ×4 (06:54→17:21)
[2017-01-19 09:06] LABS: WHITE BLOOD COUNT 3.7 K/mm3 (4.0-10.0)
[2017-01-19 09:09] LABS: BASOPHIL 1.1 % (0-2.0); EOSINOPHIL 9.8 % (0-4.5); MCH 32.4 pg (25.7-33.7); MCHC 33.6 g/dl (32.0-35.9); MEAN CELL VOLUME 96.5 fl (80-96); MEAN PLT VOLUME 8.6 fl (7.5-11.1); NEUTROPHILS 60.7 % (42.8-82.8); PLATELET COUNT 169 K/MM3 (134-434); RDW 19.7 % (11.9-15.9)
--- NOTE | 2017-01-19 09:11 | PN ---
Progress Note, Physician Chief Complaint: FTT, sepsis (resolved), anemia History of Present Illness: History of Present Illness: Patient comfortably lying in bed, NAD, responds to questions and seemed to be in a good mood. But patient still refusing his medications and blood draw. Denies chest pain and SOB at this time. Patient seen by GI this morning. Discussed with patient regarding PEG placement tomorrow and agreed with procedure. - Current Medication List Current Medications: Active Medications Acetaminophen (Tylenol -) 650 mg PO Q12H PRN PRN Reason: PAIN LEVEL 6-10 Last Admin: 01/17/17 09:52 Dose: 650 mg Albuterol/Ipratropium (Duoneb -) 1 amp NEB TIDR [facility] Last Admin: 01/19/17 06:00 Dose: Not Given Alprazolam (Xanax -) 0.25 mg PO Q8H PRN PRN Reason: ANXIETY Last Admin: 01/17/17 22:31 Dose: 0.25 mg Aspirin (Asa -) 81 mg PO DAILY [facility] Last Admin: 01/17/17 09:52 Dose: 81 mg Cholestyramine Resin (Questran Light Packet -) 4 gm PO BID [facility] Last Admin: 01/18/17 22:17 Dose: Not Given Clopidogrel Bisulfate (Plavix -) 75 mg PO DAILY [facility] Last Admin: 01/17/17 09:54 Dose: Not Given Collagenase (Santyl -) 1 applic TP DAILY [facility] Last Admin: 01/18/17 10:21 Dose: 1 applic Divalproex Sodium (Depakote Sprinkle Caps -) 250 mg PO DAILY [facility] Last Admin: 01/18/17 14:59 Dose: Not Given Furosemide (Lasix Injection -) 40 mg IVPUSH DAILY [facility] Last Admin: 01/18/17 10:20 Dose: 40 mg Insulin Aspart (Novolog Vial Sliding Scale -) 1 vial SQ Q6HPO [facility] PRN Reason: Protocol Last Admin: 01/19/17 06:54 Dose: Not Given Levetiracetam (Keppra Xr -) 500 mg PO DAILY [facility] Last Admin: 01/18/17 14:59 Dose: Not Given Mirtazapine (Remeron -) 7.5 mg PO HS [facility] Last Admin: 01/18/17 22:43 Dose: Not Given Oxycodone HCl (Roxicodone -) 5 mg PO Q8H PRN PRN Reason: PAIN Last Admin: 01/18/17 22:32 Dose: 5 mg Pantoprazole Sodium (Protonix -) 40 mg PO DAILY [facility] Last Admin: 01/18/17 14:59 Dose: Not Given Silver Sulfadiazine (Silvadene -) 1 applic TP BID [facility] Last Admin: 01/18/17 22:00 Dose: Not Given - Objective Vital Signs: Vital Signs Temperature 98.0 F 01/18/17 15:47 Pulse Rate 110 H 01/18/17 15:47 Respiratory Rate 18 01/18/17 21:00 Blood Pressure 110/67 01/18/17 15:47 O2 Sat by Pulse Oximetry (%) 100 01/18/17 21:00 Constitutional: Yes: No Distress, Calm Eyes: Yes: Conjunctiva Clear HENT: Yes: Normocephalic Neck: Yes: Supple Cardiovascular: Yes: Regular Rate and Rhythm Respiratory: Yes: Regular, CTA Bilaterally Gastrointestinal: Yes: Normal Bowel Sounds, Soft Extremities: Yes: Amputation Edema: No Peripheral Pulses WNL: Yes Neurological: Yes: Alert, Oriented Labs: INR, PTT INR 1.34 (0.82-1.09) H 01/07/17 05:15 Fibrinogen 375.0 mg/dL (238-498) 01/07/17 05:15 Problem List - Problems (1) Failure to thrive Code(s): [id number] - Qualifiers: Failure to thrive age range: in adult Qualified Code(s): R62.7 - Adult failure to thrive (2) Pneumonia of both lower lobes Code(s): J18.9 - PNEUMONIA, UNSPECIFIED ORGANISM Qualifiers: Pneumonia type: aspiration pneumonia Aspiration pneumonia type: unspecified Qualified Code(s): J69.0 - Pneumonitis due to inhalation of food and vomit (3) 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 complication Code(s): E11.29 - TYPE 2 DIABETES MELLITUS W OTH DIABETIC KIDNEY COMPLICATION (4) Acute on chronic systolic (congestive) heart failure Code(s): I50.23 - ACUTE ON CHRONIC SYSTOLIC (CONGESTIVE) HEART FAILURE (5) CAD (coronary artery disease) Code(s): I25.10 - ATHSCL HEART DISEASE OF [place] CORONARY ARTERY W/O ANG PCTRS (6) CKD (chronic kidney disease) Code(s): N18.9 - CHRONIC KIDNEY DISEASE, UNSPECIFIED Qualifiers: Chronic kidney disease stage: stage 3 (moderate) Qualified Code(s): N18.3 - Chronic kidney disease, stage 3 (moderate) (7) Dehydration Code(s): E86.0 - DEHYDRATION (8) Depressed Code(s): F32.9 - MAJOR DEPRESSIVE DISORDER, SINGLE EPISODE, UNSPECIFIED Qualifiers: Depression Type: major depressive disorder Major depression recurrence : single episode Active/Remission status: currently active Major depression episode severity: severe Psychotic features: without psychotic features Qualified Code(s): F32.2 - Major depressive disorder, single episode, severe without psychotic features (9) Pneumonia Code(s): J18.9 - PNEUMONIA, UNSPECIFIED ORGANISM Qualifiers: Pneumonia type: aspiration pneumonia Laterality: bilateral Lung location: lower lobe of lung (10) CHF (congestive heart failure) Code(s): I50.9 - HEART FAILURE, UNSPECIFIED Qualifiers: (11) Diabetes Code(s): E11.9 - TYPE 2 DIABETES MELLITUS WITHOUT COMPLICATIONS (12) Diabetes mellitus type 2 in nonobese Code(s): E11.9 - TYPE 2 DIABETES MELLITUS WITHOUT COMPLICATIONS (13) Hyperlipemia Code(s): E78.5 - HYPERLIPIDEMIA, UNSPECIFIED (14) Thrombocytopenia Code(s): D69.6 - THROMBOCYTOPENIA, UNSPECIFIED Assessment/Plan (1) CHF exacerbation Assessment/Plan: -Pulmonary and cardiology consult -Still refusing CXR -Continue IV Lasix Code(s): I50.9 - HEART FAILURE, UNSPECIFIED Qualifiers: Congestive heart failure type: unspecified congestive heart failure type Qualified Code(s): I50.9 - Heart failure, unspecified (2) 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 complication Code(s): E11.29 - TYPE 2 DIABETES MELLITUS W H DIABETIC KIDNEY COMPLICATION (3) Acute kidney failure Assessment/Plan: -secondary to sepsis, dehydration -monitor kidney function -stable at this time Code(s): N17.9 - ACUTE KIDNEY FAILURE, UNSPECIFIED (4) Depressed Code(s): F32.9 - MAJOR DEPRESSIVE DISORDER, SINGLE EPISODE, UNSPECIFIED Qualifiers: Depression Type: major depressive disorder Major depression recurrence : single episode Active/Remission status: currently active Major depression episode severity: severe Psychotic features: without psychotic features Qualified Code(s): F32.2 - Major depressive disorder, single episode, severe without psychotic features (5) Anemia Assessment/Plan: -H/H improved and stable -continue to monitor labs, patient refusing blood draw -flow cytometry ordered by Hematology Code(s): D64.9 - ANEMIA, UNSPECIFIED Qualifiers: Anemia type: unspecified type Qualified Code(s): D64.9 - Anemia, unspecified (6) Failure to thrive Assessment/Plan: -secondary to depression -encourage PO intake -seen by GI this morning -for PEG placement Friday 8am -NPO after MN -continue to hold plavix Code(s): [id number] - Qualifiers: Failure to thrive age range: in adult Qualified Code(s): R62.7 - Adult failure to thrive (7) Pleural effusion Code(s): J90 - PLEURAL EFFUSION, NOT ELSEWHERE CLASSIFIED
[2017-01-19] MEDS: levETIRAcetam XR 500 MG TAB PO SCH (09:25)
[2017-01-19] MEDS: DIVALPROEX SODIUM 125 MG SPRINKLE CAPS (FP) PO SCH (09:25)
[2017-01-19] MEDS: CHOLESTYRAMINE/ASPARTAME 4 GM PACKET PO SCH ×2 (09:25→21:04)
[2017-01-19] MEDS: PANTOPRAZOLE 40 MG TABLET (FP) PO SCH (09:25)
[2017-01-19] MEDS: FUROSEMIDE 40 MG/4 ML INJECTABLE VIAL IVPUSH SCH (09:28)
[2017-01-19] MEDS: COLLAGENASE CLOSTRIDIUM HIST. 30 GRAMS TUBE TP SCH (09:28)
[2017-01-19] MEDS: SILVER SULFADIAZINE 1% TOP CREAM 50 GM JAR TP SCH (09:28)
[2017-01-19 09:50] LABS: ALBUMIN 1.9 g/dl (3.4-5.0); ANION GAP 6 (8-16); BILIRUBIN,TOTAL 0.4 mg/dL (0.2-1.0); CALCIUM 8.2 mg/dL (8.5-10.1); CO2 33 mmol/L (21-32); CREATININE 1.3 mg/dL (0.7-1.3); GLUCOSE,RANDOM 92 mg/dL (74-106); SGOT/AST 12 U/L (15-37); SGPT/ALT 9 U/L (12-78)
[2017-01-19 09:51] LABS: ALK PHOS 90 U/L (45-117)
--- NOTE | 2017-01-19 10:45 | PN ---
Progress Note (short form) - Note Progress Note: PULMONARY Denies shortness of breath or chest pain. CXR with increasing congestion. Last Vital Signs Temp Pulse Resp BP Pulse Ox 98.0 F 110 H 18 110/67 100 01/18/17 15:47 01/18/17 15:47 01/18/17 21:00 01/18/17 15:47 01/18/17 21:00 Gen: NAD at rest Heart: RRR Lung: decreased breath sounds at the bases Abd: soft, nontender Ext: no edema, L BKA CBC, BMP 01/19/17 08:30 01/19/17 08:30 Active Medications Acetaminophen (Tylenol -) 650 mg PO Q12H PRN PRN Reason: PAIN LEVEL 6-10 Last Admin: 01/17/17 09:52 Dose: 650 mg Albuterol/Ipratropium (Duoneb -) 1 amp NEB TIDR [facility] Last Admin: 01/19/17 06:00 Dose: Not Given Alprazolam (Xanax -) 0.25 mg PO Q8H PRN PRN Reason: ANXIETY Last Admin: 01/17/17 22:31 Dose: 0.25 mg Aspirin (Asa -) 81 mg PO DAILY [facility] Last Admin: 01/17/17 09:52 Dose: 81 mg Cholestyramine Resin (Questran Light Packet -) 4 gm PO BID [facility] Last Admin: 01/19/17 09:25 Dose: Not Given Clopidogrel Bisulfate (Plavix -) 75 mg PO DAILY [facility] Last Admin: 01/17/17 09:54 Dose: Not Given Collagenase (Santyl -) 1 applic TP DAILY [facility] Last Admin: 01/19/17 09:28 Dose: 1 applic Divalproex Sodium (Depakote Sprinkle Caps -) 250 mg PO DAILY [facility] Last Admin: 01/19/17 09:25 Dose: Not Given Furosemide (Lasix Injection -) 40 mg IVPUSH DAILY [facility] Last Admin: 01/19/17 09:28 Dose: 40 mg Insulin Aspart (Novolog Vial Sliding Scale -) 1 vial SQ Q6HPO [facility] PRN Reason: Protocol Last Admin: 01/19/17 06:54 Dose: Not Given Levetiracetam (Keppra Xr -) 500 mg PO DAILY [facility] Last Admin: 01/19/17 09:25 Dose: Not Given Mirtazapine (Remeron -) 7.5 mg PO HS [facility] Last Admin: 01/18/17 22:43 Dose: Not Given Oxycodone HCl (Roxicodone -) 5 mg PO Q8H PRN PRN Reason: PAIN Last Admin: 01/18/17 22:32 Dose: 5 mg Pantoprazole Sodium (Protonix -) 40 mg PO DAILY [facility] Last Admin: 01/19/17 09:25 Dose: Not Given Silver Sulfadiazine (Silvadene -) 1 applic TP BID [facility] Last Admin: 01/19/17 09:28 Dose: 1 applic A/P Pneumonia s/p Septic Shock Chronic LV Systolic Heart Failure Chronic Hypercapneic Respiratory Failure Pleural Effusion - Transudative s/p right pigtail catheter drainage Altered Mental Status improving COPD Acute Kidney Injury HTN - antibiotics completed - continue IV lasix, will give extra dose in PM - monitor urine output, creatinine - cardiology f/u - DVT prophylaxis
[2017-01-19] MEDS ORDERED: FUROSEMIDE 40 MG/4 ML INJECTABLE VIAL IVPUSH SCH (10:46)
--- NOTE | 2017-01-19 12:33 | PN ---
GI Progress Note - Objective Vital Signs: Vital Signs Temperature 98.0 F 01/18/17 15:47 Pulse Rate 101 H 01/19/17 10:00 Respiratory Rate 18 01/19/17 10:00 Blood Pressure 108/52 01/19/17 10:00 O2 Sat by Pulse Oximetry (%) 100 01/19/17 09:00 Constitutional: Anxious, Thin, Other (Angry and belligerant) HENT: Yes: Normocephalic Respiratory: Yes: CTA Bilaterally Gastrointestinal Inspection: Yes: WNL ...Auscultate: Yes: Normoactive Bowel Sounds ...Palpate: Yes: Soft Extremities: Yes: Amputation (L BKA) Labs: CBC, BMP 01/19/17 08:30 01/19/17 08:30 INR, PTT INR 1.34 (0.82-1.09) H 01/07/17 05:15 Fibrinogen 375.0 mg/dL (238-498) 01/07/17 05:15 Assessment/Plan For PEG Mon 8 AM barring unforeseen circumstances NPO after [facility] [place] Continue to hold plavix Possibility that patient will refuse PEG placement as he did before
[2017-01-19] MEDS ORDERED: FUROSEMIDE 40 MG/4 ML INJECTABLE VIAL IVPUSH ONE (16:00)
[2017-01-19] MEDS: MIRTAZAPINE 15 MG TABLET (FP) PO SCH (22:39)
[2017-01-19] MEDS: ALPRAZolam 0.25 MG TABLET PO PRN (22:39)
[2017-01-20] MEDS: BANATROL PLUS POWDER PACKET PO SCH ×3 (06:45→22:10)
[2017-01-20] MEDS: SILVER SULFADIAZINE 1% TOP CREAM 50 GM JAR TP SCH ×3 (06:45→22:11)
[2017-01-20] MEDS: ALBUTEROL SO4 2.5/IPRATROPIUM 0.5 INH SOL 3 ML VIAL.NEB. NEB SCH ×3 (06:59→22:45)
[2017-01-20] MEDS ORDERED: PT OWN MED DRAWER 7, Y5N ONE ×2 (07:01→21:12)
[2017-01-20] MEDS ORDERED: ETOMIDATE 20 MG/10 ML AMPUL IVPUSH ONE (08:03)
[2017-01-20] MEDS ORDERED: SUCCINYLCHOLINE CHLORIDE 200 MG/10 ML VIAL ONE (08:03)
[2017-01-20] MEDS ORDERED: PHENYLEPHRINE HCL 10 MG/1 ML SINGLE DOSE VIAL ONE (08:03)
[2017-01-20] MEDS ORDERED: PROPOFOL 20 ML ONE (08:03)
[2017-01-20] MEDS ORDERED: ePHEDrine SULFATE 50 MG/1 ML AMPULE ONE (08:03)
[2017-01-20 08:30] LABS: EOSINOPHIL 7.9 % (0-4.5); MCH 32.5 pg (25.7-33.7); MCHC 33.3 g/dl (32.0-35.9); MEAN CELL VOLUME 97.5 fl (80-96); NEUTROPHILS 65.4 % (42.8-82.8); PLATELET COUNT 191 K/MM3 (134-434); WHITE BLOOD COUNT 5.2 K/mm3 (4.0-10.0)
--- NOTE | 2017-01-20 08:50 | PN ---
Progress Note (short form) - Note Progress Note: ADDENEUM: S/P PEG placement Procedure uneventful PEG instructions ordered Can start TF and meds through G-tube at this time FF
[2017-01-20 09:09] LABS: ALBUMIN 2.2 g/dl (3.4-5.0); ALK PHOS 99 U/L (45-117); ANION GAP 7 (8-16); BILIRUBIN,TOTAL 0.7 mg/dL (0.2-1.0); CALCIUM 8.3 mg/dL (8.5-10.1); CO2 35 mmol/L (21-32); CREATININE 1.4 mg/dL (0.7-1.3); GLUCOSE,RANDOM 99 mg/dL (74-106); SGOT/AST 15 U/L (15-37); SGPT/ALT 11 U/L (12-78); TOT PROT 5.5 g/dl (6.4-8.2)
--- NOTE | 2017-01-20 11:34 | PN ---
Progress Note, Physician Chief Complaint: s/p peg sleeping in bed woke up calm says he is ok wants to eat - Current Medication List Current Medications: Active Medications Acetaminophen (Tylenol -) 650 mg PO Q12H PRN PRN Reason: PAIN LEVEL 6-10 Last Admin: 01/17/17 09:52 Dose: 650 mg Albuterol/Ipratropium (Duoneb -) 1 amp NEB TIDR [facility] Last Admin: 01/20/17 06:59 Dose: Not Given Aspirin (Asa -) 81 mg PO DAILY [facility] Last Admin: 01/17/17 09:52 Dose: 81 mg Cholestyramine Resin (Questran Light Packet -) 4 gm PO BID [facility] Last Admin: 01/19/17 21:04 Dose: Not Given Clopidogrel Bisulfate (Plavix -) 75 mg PO DAILY [facility] Last Admin: 01/17/17 09:54 Dose: Not Given Collagenase (Santyl -) 1 applic TP DAILY [facility] Last Admin: 01/19/17 09:28 Dose: 1 applic Divalproex Sodium (Depakote Sprinkle Caps -) 250 mg PO DAILY [facility] Last Admin: 01/19/17 09:25 Dose: Not Given Furosemide (Lasix Injection -) 40 mg IVPUSH DAILY [facility] Insulin Aspart (Novolog Vial Sliding Scale -) 1 vial SQ Q6HPO [facility] PRN Reason: Protocol Last Admin: 01/20/17 00:00 Dose: Not Given Levetiracetam (Keppra Xr -) 500 mg PO DAILY [facility] Last Admin: 01/19/17 09:25 Dose: Not Given Mirtazapine (Remeron -) 7.5 mg PO HS [facility] Last Admin: 01/19/17 22:39 Dose: 7.5 mg Pantoprazole Sodium (Protonix -) 40 mg PO DAILY [facility] Last Admin: 01/19/17 09:25 Dose: Not Given Silver Sulfadiazine (Silvadene -) 1 applic TP BID [facility] Last Admin: 01/20/17 06:45 Dose: Not Given - Objective Vital Signs: Vital Signs Temperature 97.6 F 01/20/17 09:02 Pulse Rate 106 H 01/20/17 09:40 Respiratory Rate 17 01/20/17 09:02 Blood Pressure 99/56 01/20/17 09:40 O2 Sat by Pulse Oximetry (%) 98 01/20/17 09:02 Constitutional: Yes: Calm, Thin Cardiovascular: Yes: Regular Rate and Rhythm, S1, S2 Respiratory: Yes: CTA Bilaterally Gastrointestinal: Yes: Normal Bowel Sounds, Soft Extremities: Yes: Other (s/p LLE) Edema: No Neurological: Yes: Alert, Oriented Labs: CBC, BMP 01/20/17 06:00 01/20/17 06:00 INR, PTT INR 1.34 (0.82-1.09) H 01/07/17 05:15 Fibrinogen 375.0 mg/dL (238-498) 01/07/17 05:15
[2017-01-20] MEDS: INSULIN SLIDING SCALE (NOVOLOG) 1 VIAL SQ SCH ×3 (12:25→18:38)
[2017-01-20] MEDS: levETIRAcetam XR 500 MG TAB PO SCH (12:25)
[2017-01-20] MEDS: DIVALPROEX SODIUM 125 MG SPRINKLE CAPS (FP) PO SCH (12:27)
[2017-01-20] MEDS: PANTOPRAZOLE 40 MG TABLET (FP) PO SCH (12:28)
--- NOTE | 2017-01-20 12:59 | PN ---
Progress Note (short form) - Note Progress Note: PULMONARY Denies shortness of breath or chest pain. No cough or wheezing. Last Vital Signs Temp Pulse Resp BP Pulse Ox 97.6 F 106 H 17 99/56 98 01/20/17 09:02 01/20/17 09:40 01/20/17 09:02 01/20/17 09:40 01/20/17 09:02 Gen: NAD at rest Heart: RRR Lung: decreased breath sounds at the bases Abd: soft, nontender Ext: no edema, L BKA CBC, BMP 01/20/17 06:00 01/20/17 06:00 Active Medications Acetaminophen (Tylenol -) 650 mg PO Q12H PRN PRN Reason: PAIN LEVEL 6-10 Last Admin: 01/17/17 09:52 Dose: 650 mg Albuterol/Ipratropium (Duoneb -) 1 amp NEB TIDR [facility] Last Admin: 01/20/17 06:59 Dose: Not Given Aspirin (Asa -) 81 mg PO DAILY [facility] Last Admin: 01/17/17 09:52 Dose: 81 mg Cholestyramine Resin (Questran Light Packet -) 4 gm PO BID [facility] Last Admin: 01/19/17 21:04 Dose: Not Given Clopidogrel Bisulfate (Plavix -) 75 mg PO DAILY [facility] Last Admin: 01/17/17 09:54 Dose: Not Given Collagenase (Santyl -) 1 applic TP DAILY [facility] Last Admin: 01/19/17 09:28 Dose: 1 applic Divalproex Sodium (Depakote Sprinkle Caps -) 250 mg GT DAILY [facility] Furosemide (Lasix Injection -) 40 mg IVPUSH DAILY [facility] Insulin Aspart (Novolog Vial Sliding Scale -) 1 vial SQ Q6HPO [facility] PRN Reason: Protocol Last Admin: 01/20/17 12:25 Dose: Not Given Levetiracetam (Keppra Oral Solution -) 500 mg PO DAILY [facility] Mirtazapine (Remeron -) 7.5 mg PO HS [facility] Last Admin: 01/19/17 22:39 Dose: 7.5 mg Pantoprazole Sodium (Protonix Packets For Oral Suspension -) 40 mg GT DAILY [facility] Silver Sulfadiazine (Silvadene -) 1 applic TP BID [facility] Last Admin: 01/20/17 06:45 Dose: Not Given A/P Pneumonia s/p Septic Shock Chronic LV Systolic Heart Failure Chronic Hypercapneic Respiratory Failure Pleural Effusion - Transudative s/p right pigtail catheter drainage Altered Mental Status improving COPD Acute Kidney Injury HTN - antibiotics completed - continue IV lasix - monitor urine output, creatinine - cardiology f/u - DVT prophylaxis
[2017-01-20] MEDS: FUROSEMIDE 40 MG/4 ML INJECTABLE VIAL IVPUSH SCH (13:15)
[2017-01-20] MEDS: CHOLESTYRAMINE/ASPARTAME 4 GM PACKET PO SCH ×2 (13:25→22:11)
[2017-01-20] MEDS: COLLAGENASE CLOSTRIDIUM HIST. 30 GRAMS TUBE TP SCH (14:47)
[2017-01-20] MEDS: levETIRAcetam 500 MG/5 ML ORAL SOLUTION (UNIT-DOSE CUPS) PO SCH (14:48)
[2017-01-20] MEDS: DIVALPROEX SODIUM 125 MG SPRINKLE CAPS (FP) GT SCH (14:48)
[2017-01-20] MEDS: PANTOPRAZOLE SOD 40 MG SUSPENSION PACKET GT SCH (14:49)
[2017-01-20] MEDS: oxyCODONE HCL 5 MG TABLET PO PRN (17:33)
[2017-01-20] MEDS ORDERED: oxyCODONE HCL 5 MG TABLET PO ONE (18:45)
[2017-01-20] MEDS ORDERED: HYDROmorphone HCL CARPU-JECT 1 MG/1 ML DISP.SYRIN IVPB ONE (19:30)
[2017-01-20] MEDS ORDERED: INSULIN (NOVOLOG) ASPART 100 UNITS/ML 10ML VIAL ONE (21:37)
[2017-01-20] MEDS: MIRTAZAPINE 15 MG TABLET (FP) PO SCH (22:11)
[2017-01-21] MEDS: ALPRAZolam 0.25 MG TABLET PO PRN ×2 (03:48→21:47)
[2017-01-21] MEDS: ALBUTEROL SO4 2.5/IPRATROPIUM 0.5 INH SOL 3 ML VIAL.NEB. NEB SCH ×3 (06:15→22:04)
[2017-01-21] MEDS: BANATROL PLUS POWDER PACKET PO SCH (06:50)
[2017-01-21] MEDS: INSULIN SLIDING SCALE (NOVOLOG) 1 VIAL SQ SCH ×4 (06:54→18:50)
[2017-01-21] MEDS ORDERED: INSULIN (NOVOLOG) ASPART 100 UNITS/ML 10ML VIAL ONE ×2 (07:32→18:48)
[2017-01-21 08:57] LABS: ALBUMIN 2.2 g/dl (3.4-5.0); ALK PHOS 101 U/L (45-117); ANION GAP 7 (8-16); BILIRUBIN,TOTAL 0.7 mg/dL (0.2-1.0); CALCIUM 8.4 mg/dL (8.5-10.1); CO2 36 mmol/L (21-32); CREATININE 1.6 mg/dL (0.7-1.3); GLUCOSE,RANDOM 239 mg/dL (74-106); SGOT/AST 12 U/L (15-37); SGPT/ALT 9 U/L (12-78); TOT PROT 5.7 g/dl (6.4-8.2)
[2017-01-21] MEDS: DIVALPROEX SODIUM 125 MG SPRINKLE CAPS (FP) GT SCH (10:49)
[2017-01-21] MEDS: CHOLESTYRAMINE/ASPARTAME 4 GM PACKET PO SCH ×2 (10:49→21:45)
[2017-01-21] MEDS: levETIRAcetam 500 MG/5 ML ORAL SOLUTION (UNIT-DOSE CUPS) PO SCH (10:49)
[2017-01-21] MEDS: FUROSEMIDE 40 MG/4 ML INJECTABLE VIAL IVPUSH SCH (10:49)
[2017-01-21] MEDS: PANTOPRAZOLE SOD 40 MG SUSPENSION PACKET GT SCH (10:50)
[2017-01-21] MEDS: SILVER SULFADIAZINE 1% TOP CREAM 50 GM JAR TP SCH (10:50)
[2017-01-21] MEDS: oxyCODONE HCL 5 MG TABLET PO PRN (10:50)
[2017-01-21] MEDS: COLLAGENASE CLOSTRIDIUM HIST. 30 GRAMS TUBE TP SCH (10:50)
[2017-01-21] MEDS ORDERED: ONDANSETRON 4 MG/2 ML VIAL IVPB PRN (10:52)
--- NOTE | 2017-01-21 11:39 | PN ---
Progress Note, Physician Chief Complaint: sleeping in bed calm complaining of nausea got zofan abdominal xray noted for fecal debris will give miralax - Current Medication List Current Medications: Active Medications Acetaminophen (Tylenol -) 650 mg PO Q12H PRN PRN Reason: PAIN LEVEL 6-10 Last Admin: 01/17/17 09:52 Dose: 650 mg Albuterol/Ipratropium (Duoneb -) 1 amp NEB TIDR [facility] Last Admin: 01/21/17 06:15 Dose: 1 amp Alprazolam (Xanax -) 0.25 mg PO Q8H PRN PRN Reason: ANXIETY Last Admin: 01/21/17 03:48 Dose: 0.25 mg Aspirin (Asa -) 81 mg PO DAILY [facility] Last Admin: 01/17/17 09:52 Dose: 81 mg Cholestyramine Resin (Questran Light Packet -) 4 gm PO BID [facility] Last Admin: 01/21/17 10:49 Dose: 4 gm Clopidogrel Bisulfate (Plavix -) 75 mg PO DAILY [facility] Last Admin: 01/17/17 09:54 Dose: Not Given Collagenase (Santyl -) 1 applic TP DAILY [facility] Last Admin: 01/21/17 10:50 Dose: 1 applic Divalproex Sodium (Depakote Sprinkle Caps -) 250 mg GT DAILY [facility] Last Admin: 01/21/17 10:49 Dose: 250 mg Furosemide (Lasix Injection -) 40 mg IVPUSH DAILY [facility] Last Admin: 01/21/17 10:49 Dose: 40 mg Insulin Aspart (Novolog Vial Sliding Scale -) 1 vial SQ Q6HPO [facility] PRN Reason: Protocol Last Admin: 01/21/17 06:54 Dose: 4 unit Levetiracetam (Keppra Oral Solution -) 500 mg PO DAILY [facility] Last Admin: 01/21/17 10:49 Dose: 500 mg Mirtazapine (Remeron -) 7.5 mg PO HS [facility] Last Admin: 01/20/17 22:11 Dose: 7.5 mg Nystatin (Mycostatin Cream -) 1 applic TP BID [facility] Ondansetron HCl (Zofran Injection) 8 mg IVPB Q8H PRN PRN Reason: NAUSEA AND/OR VOMITING Oxycodone HCl (Roxicodone -) 5 mg PO Q8H PRN Last Admin: 01/21/17 10:50 Dose: 5 mg Pantoprazole Sodium (Protonix Packets For Oral Suspension -) 40 mg GT DAILY [facility] Last Admin: 01/21/17 10:50 Dose: 40 mg Silver Sulfadiazine (Silvadene -) 1 applic TP BID [facility] Last Admin: 01/21/17 10:50 Dose: 1 applic - Objective Vital Signs: Vital Signs Temperature 97.9 F 01/21/17 06:33 Pulse Rate 123 H 01/21/17 08:37 Respiratory Rate 20 01/21/17 08:37 Blood Pressure 116/66 01/21/17 08:37 O2 Sat by Pulse Oximetry (%) 96 01/20/17 13:45 Constitutional: Yes: Calm, Thin Neck: Yes: Trachea Midline Cardiovascular: Yes: Tachycardia Respiratory: Yes: CTA Bilaterally Gastrointestinal: Yes: Normal Bowel Sounds, Soft Musculoskeletal: Yes: Other (left BKA no edema) Integumentary: Yes: Other Neurological: Yes: Alert, Oriented (to name) Labs: CBC, BMP 01/20/17 06:00 01/21/17 08:00 INR, PTT INR 1.34 (0.82-1.09) H 01/07/17 05:15 Fibrinogen 375.0 mg/dL (238-498) 01/07/17 05:15 Problem List - Problems (1) Failure to thrive Assessment/Plan: s/p PEG now on tube feeding Code(s): [id number] - Qualifiers: Failure to thrive age range: in adult Qualified Code(s): R62.7 - Adult failure to thrive (2) CAD (coronary artery disease) Assessment/Plan: on aspirin and plavix cardio FU Code(s): I25.10 - ATHSCL HEART DISEASE OF [place] CORONARY ARTERY W/O ANG PCTRS (3) Chronic systolic (congestive) heart failure Assessment/Plan: iv lasix repeat cxr today to see improvement of pulm congestion Code(s): I50.22 - CHRONIC SYSTOLIC (CONGESTIVE) HEART FAILURE (4) Groin rash Assessment/Plan: nystatin cream Code(s): R21 - RASH AND OTHER NONSPECIFIC SKIN ERUPTION
[2017-01-21] MEDS ORDERED: POLYETHYLENE GLYCOL 3350 119 GM BTL PO ONE (11:43)
--- NOTE | 2017-01-21 14:35 | PN ---
Progress Note (short form) - Note Progress Note: PULMONARY Denies shortness of breath or chest pain. No cough or wheezing. Last Vital Signs Temp Pulse Resp BP Pulse Ox 97.9 F 123 H 20 116/66 96 01/21/17 06:33 01/21/17 08:37 01/21/17 08:37 01/21/17 08:37 01/20/17 13:45 Gen: NAD at rest Heart: RRR Lung: decreased breath sounds at the bases Abd: soft, nontender Ext: no edema, L BKA CBC, BMP 01/20/17 06:00 01/21/17 08:00 Active Medications Acetaminophen (Tylenol -) 650 mg PO Q12H PRN PRN Reason: PAIN LEVEL 6-10 Last Admin: 01/17/17 09:52 Dose: 650 mg Albuterol/Ipratropium (Duoneb -) 1 amp NEB TIDR [facility] Last Admin: 01/21/17 06:15 Dose: 1 amp Alprazolam (Xanax -) 0.25 mg PO Q8H PRN PRN Reason: ANXIETY Last Admin: 01/21/17 03:48 Dose: 0.25 mg Aspirin (Asa -) 81 mg PO DAILY [facility] Last Admin: 01/17/17 09:52 Dose: 81 mg Cholestyramine Resin (Questran Light Packet -) 4 gm PO BID [facility] Last Admin: 01/21/17 10:49 Dose: 4 gm Clopidogrel Bisulfate (Plavix -) 75 mg PO DAILY [facility] Last Admin: 01/17/17 09:54 Dose: Not Given Collagenase (Santyl -) 1 applic TP DAILY [facility] Last Admin: 01/21/17 10:50 Dose: 1 applic Divalproex Sodium (Depakote Sprinkle Caps -) 250 mg GT DAILY [facility] Last Admin: 01/21/17 10:49 Dose: 250 mg Furosemide (Lasix Injection -) 40 mg IVPUSH DAILY [facility] Last Admin: 01/21/17 10:49 Dose: 40 mg Insulin Aspart (Novolog Vial Sliding Scale -) 1 vial SQ Q6HPO [facility] PRN Reason: Protocol Last Admin: 01/21/17 13:18 Dose: Not Given Levetiracetam (Keppra Oral Solution -) 500 mg PO DAILY [facility] Last Admin: 01/21/17 10:49 Dose: 500 mg Mirtazapine (Remeron -) 7.5 mg PO HS [facility] Last Admin: 01/20/17 22:11 Dose: 7.5 mg Nystatin (Mycostatin Cream -) 1 applic TP BID [facility] Ondansetron HCl (Zofran Injection) 8 mg IVPB Q8H PRN PRN Reason: NAUSEA AND/OR VOMITING Last Admin: 01/21/17 13:08 Dose: 8 mg Oxycodone HCl (Roxicodone -) 5 mg PO Q8H PRN Last Admin: 01/21/17 10:50 Dose: 5 mg Pantoprazole Sodium (Protonix Packets For Oral Suspension -) 40 mg GT DAILY [facility] Last Admin: 01/21/17 10:50 Dose: 40 mg A/P Pneumonia s/p Septic Shock Chronic LV Systolic Heart Failure Chronic Hypercapneic Respiratory Failure Pleural Effusion - Transudative s/p right pigtail catheter drainage Altered Mental Status improving COPD Acute Kidney Injury HTN - antibiotics completed - continue IV lasix - monitor urine output, creatinine - repeat CXR - cardiology f/u - DVT prophylaxis
--- NOTE | 2017-01-21 14:49 | PN ---
GI Progress Note Subjective: s/p PEG , nausea and vomiting, FUA--retained stool - Objective Vital Signs: Vital Signs Temperature 97.9 F 01/21/17 06:33 Pulse Rate 123 H 01/21/17 08:37 Respiratory Rate 20 01/21/17 08:37 Blood Pressure 116/66 01/21/17 08:37 O2 Sat by Pulse Oximetry (%) 96 01/20/17 13:45 Constitutional: Well Nourished Eyes: Yes: Conjunctiva Clear HENT: Yes: Atraumatic Neck: Yes: Supple Cardiovascular: Yes: Regular Rate and Rhythm Respiratory: Yes: CTA Bilaterally ...Palpate: Yes: Soft. No: Firm/Rigid, Guarding, Hepatomegaly, Mass, Pulsatile Mass, Splenomegaly, Tenderness Labs: CBC, BMP 01/20/17 06:00 01/21/17 08:00 INR, PTT INR 1.34 (0.82-1.09) H 01/07/17 05:15 Fibrinogen 375.0 mg/dL (238-498) 01/07/17 05:15 Problem List - Problems (1) Failure to thrive Code(s): [id number] - Qualifiers: Failure to thrive age range: in adult Qualified Code(s): R62.7 - Adult failure to thrive (2) Poor nutrition Code(s): E63.9 - NUTRITIONAL DEFICIENCY, UNSPECIFIED
[2017-01-21] MEDS: METOCLOPRAMIDE HCL INJECTION 10 MG/2 ML VIAL IVPB SCH ×2 (15:06→22:02)
[2017-01-21] MEDS: MAGNESIUM CITRATE 300 ML BOTTLE GT SCH ×2 (15:06→18:43)
--- NOTE | 2017-01-21 16:44 | PN ---
Progress Note, Physician History of Present Illness: seen and examined today in nad. slightly lethargic but awake and able to answer questions. poor insight. states he feels slightly better. - Current Medication List Current Medications: Active Medications Acetaminophen (Tylenol -) 650 mg PO Q12H PRN PRN Reason: PAIN LEVEL 6-10 Last Admin: 01/17/17 09:52 Dose: 650 mg Albuterol/Ipratropium (Duoneb -) 1 amp NEB TIDR [facility] Last Admin: 01/21/17 14:55 Dose: Not Given Alprazolam (Xanax -) 0.25 mg PO Q8H PRN PRN Reason: ANXIETY Last Admin: 01/21/17 03:48 Dose: 0.25 mg Aspirin (Asa -) 81 mg PO DAILY [facility] Last Admin: 01/17/17 09:52 Dose: 81 mg Bacitracin (Bacitracin -) 1 applic TP BID [facility] Stop: 01/26/17 21:59 Cholestyramine Resin (Questran Light Packet -) 4 gm PO BID [facility] Last Admin: 01/21/17 10:49 Dose: 4 gm Clopidogrel Bisulfate (Plavix -) 75 mg PO DAILY [facility] Last Admin: 01/17/17 09:54 Dose: Not Given Collagenase (Santyl -) 1 applic TP DAILY [facility] Last Admin: 01/21/17 10:50 Dose: 1 applic Divalproex Sodium (Depakote Sprinkle Caps -) 250 mg GT DAILY [facility] Last Admin: 01/21/17 10:49 Dose: 250 mg Furosemide (Lasix Injection -) 40 mg IVPUSH DAILY [facility] Last Admin: 01/21/17 10:49 Dose: 40 mg Insulin Aspart (Novolog Vial Sliding Scale -) 1 vial SQ Q6HPO [facility] PRN Reason: Protocol Last Admin: 01/21/17 13:18 Dose: Not Given Levetiracetam (Keppra Oral Solution -) 500 mg PO DAILY [facility] Last Admin: 01/21/17 10:49 Dose: 500 mg Magnesium Citrate (Citroma -) 300 ml GT Q4H [facility] Stop: 01/21/17 18:45 Last Admin: 01/21/17 15:06 Dose: 300 ml Metoclopramide HCl (Reglan Injection -) 10 mg IVPB Q8H [facility] Last Admin: 01/21/17 15:06 Dose: 10 mg Mirtazapine (Remeron -) 7.5 mg PO HS [facility] Last Admin: 01/20/17 22:11 Dose: 7.5 mg Nystatin (Mycostatin Cream -) 1 applic TP BID [facility] Ondansetron HCl (Zofran Injection) 8 mg IVPB Q8H PRN PRN Reason: NAUSEA AND/OR VOMITING Last Admin: 01/21/17 13:08 Dose: 8 mg Oxycodone HCl (Roxicodone -) 5 mg PO Q8H PRN Last Admin: 01/21/17 10:50 Dose: 5 mg Pantoprazole Sodium (Protonix Packets For Oral Suspension -) 40 mg GT DAILY [facility] Last Admin: 01/21/17 10:50 Dose: 40 mg - Objective Vital Signs: Vital Signs Temperature 98.4 F 01/21/17 15:05 Pulse Rate 112 H 01/21/17 15:05 Respiratory Rate 20 01/21/17 15:05 Blood Pressure 105/61 01/21/17 15:05 O2 Sat by Pulse Oximetry (%) 96 01/20/17 13:45 Constitutional: Yes: No Distress, Calm, Thin Eyes: Yes: Conjunctiva Clear, EOM Intact, PERRL HENT: Yes: Atraumatic, Normocephalic Neck: Yes: Supple, Trachea Midline Cardiovascular: Yes: Regular Rate and Rhythm, Murmur, S1, S2. No: Bradycardia, Tachycardia, Pulse Irregular, Bruit, JVD, Gallop, Rub, S3, S4, Varicosities Respiratory: Yes: Regular, Diminished. No: Rales, Rhonchi, SOB, Wheezes Gastrointestinal: Yes: Normal Bowel Sounds, Soft. No: Distention, Tenderness Extremities: Yes: Amputation Edema: No Peripheral Pulses WNL: No Neurological: Yes: Alert, Oriented Psychiatric: Yes: Alert, Oriented Labs: CBC, BMP 01/20/17 06:00 01/21/17 08:00 INR, PTT INR 1.34 (0.82-1.09) H 01/07/17 05:15 Fibrinogen 375.0 mg/dL (238-498) 01/07/17 05:15 - ....Imaging Chest X-ray: Report Reviewed, Image Reviewed EKG: Report Reviewed, Image Reviewed Other: Report Reviewed, Image Reviewed Assessment/Plan 61 year old man h/o COPD, PAD s/o amputations, PNA, DM, CKD, CAD s/p [place], ischemic CM, Chronic systolic CHF admitted with ams, lethargy, dec appettite, presumed sepsis. CAD h/o [place], ischemic cardiomyopathy with chronic systolic CHF -IV Lasix was resumed yesterday -bun/creat trended up today, trending back towards CJ possible intravascular depletion -pt with poor po intake -re-evaluate bun/creat tomorrow before the schedule am dose of Lasix, if trends up further would not give Lasix, will dc for now and can be re-ordered if needed or can reduce to po lasix for slower diuresis -ASA and Plavix were resumed -plan to re-introduce coreg when bp tolerates, currently still does not -hold off on CRISTHIAN-I/ARB given CJ on CKD Sepsis-presumed secondary to PNA and C. diff s/p chest tube -off Abx -BP has been running low normal but has been stable
[2017-01-21] MEDS: NYSTATIN 100,000 UNIT/GM TOPICAL CREAM 15 GM TUBE TP SCH ×2 (17:55→21:44)
[2017-01-21] MEDS: MIRTAZAPINE 15 MG TABLET (FP) PO SCH (21:45)
[2017-01-21] MEDS: BACITRACIN 15 GM TUBE TOPICAL OINTMENT TP SCH (21:47)
[2017-01-22] MEDS: levETIRAcetam 500 MG/5 ML ORAL SOLUTION (UNIT-DOSE CUPS) PO SCH (10:08)
[2017-01-22] MEDS: CHOLESTYRAMINE/ASPARTAME 4 GM PACKET PO SCH ×2 (10:09→21:15)
[2017-01-22] MEDS: DIVALPROEX SODIUM 125 MG SPRINKLE CAPS (FP) GT SCH (10:09)
[2017-01-22] MEDS: PANTOPRAZOLE SOD 40 MG SUSPENSION PACKET GT SCH (10:10)
[2017-01-22] MEDS: ALPRAZolam 0.25 MG TABLET PO PRN ×2 (10:11→21:15)
[2017-01-22] MEDS: INSULIN SLIDING SCALE (NOVOLOG) 1 VIAL SQ SCH ×3 (12:03→17:32)
--- NOTE | 2017-01-22 12:06 | PN ---
Progress Note (short form) - Note Progress Note: PULMONARY Denies shortness of breath or chest pain. +occasional cough. Last Vital Signs Temp Pulse Resp BP Pulse Ox 98.2 F 115 H 20 109/61 95 01/21/17 22:00 01/22/17 09:00 01/22/17 09:00 01/22/17 09:00 01/21/17 21:00 Gen: NAD at rest Heart: RRR Lung: decreased breath sounds at the bases Abd: soft, nontender Ext: no edema, L BKA CBC, BMP 01/20/17 06:00 01/21/17 08:00 Active Medications Acetaminophen (Tylenol -) 650 mg PO Q12H PRN PRN Reason: PAIN LEVEL 6-10 Last Admin: 01/17/17 09:52 Dose: 650 mg Albuterol/Ipratropium (Duoneb -) 1 amp NEB TIDR [facility] Last Admin: 01/21/17 22:04 Dose: 1 amp Alprazolam (Xanax -) 0.25 mg PO Q8H PRN PRN Reason: ANXIETY Last Admin: 01/22/17 10:11 Dose: 0.25 mg Aspirin (Asa -) 81 mg PO DAILY [facility] Last Admin: 01/17/17 09:52 Dose: 81 mg Bacitracin (Bacitracin -) 1 applic TP BID [facility] Stop: 01/26/17 21:59 Last Admin: 01/21/17 21:47 Dose: Not Given Cholestyramine Resin (Questran Light Packet -) 4 gm PO BID [facility] Last Admin: 01/22/17 10:09 Dose: 4 gm Clopidogrel Bisulfate (Plavix -) 75 mg PO DAILY [facility] Last Admin: 01/17/17 09:54 Dose: Not Given Collagenase (Santyl -) 1 applic TP DAILY [facility] Last Admin: 01/21/17 10:50 Dose: 1 applic Divalproex Sodium (Depakote Sprinkle Caps -) 250 mg GT DAILY [facility] Last Admin: 01/22/17 10:09 Dose: 250 mg Insulin Aspart (Novolog Vial Sliding Scale -) 1 vial SQ Q6HPO [facility] PRN Reason: Protocol Last Admin: 01/22/17 12:03 Dose: 2 unit Levetiracetam (Keppra Oral Solution -) 500 mg PO DAILY [facility] Last Admin: 01/22/17 10:08 Dose: 500 mg Metoclopramide HCl (Reglan Injection -) 10 mg IVPB Q8H [facility] Last Admin: 01/21/17 22:02 Dose: 10 mg Mirtazapine (Remeron -) 7.5 mg PO HS [facility] Last Admin: 01/21/17 21:45 Dose: 7.5 mg Nystatin (Mycostatin Cream -) 1 applic TP BID [facility] Last Admin: 01/21/17 21:44 Dose: Not Given Ondansetron HCl (Zofran Injection) 8 mg IVPB Q8H PRN PRN Reason: NAUSEA AND/OR VOMITING Last Admin: 01/21/17 13:08 Dose: 8 mg Oxycodone HCl (Roxicodone -) 5 mg PO Q8H PRN Last Admin: 01/21/17 10:50 Dose: 5 mg Pantoprazole Sodium (Protonix Packets For Oral Suspension -) 40 mg GT DAILY [facility] Last Admin: 01/22/17 10:10 Dose: 40 mg A/P Pneumonia s/p Septic Shock Chronic LV Systolic Heart Failure Chronic Hypercapneic Respiratory Failure Pleural Effusion - Transudative s/p right pigtail catheter drainage Altered Mental Status improving COPD Acute Kidney Injury HTN - antibiotics completed - lasix as needed - monitor urine output, creatinine - monitor CXR - DVT prophylaxis
[2017-01-22] MEDS: ALBUTEROL SO4 2.5/IPRATROPIUM 0.5 INH SOL 3 ML VIAL.NEB. NEB SCH ×2 (13:45→22:45)
--- NOTE | 2017-01-22 14:48 | PN ---
Progress Note, Physician History of Present Illness: seen and examined today in nad. pt is upset at having to have blood drawn. upset that he has diarrhea. states no sob. - Current Medication List Current Medications: Active Medications Acetaminophen (Tylenol -) 650 mg PO Q12H PRN PRN Reason: PAIN LEVEL 6-10 Last Admin: 01/17/17 09:52 Dose: 650 mg Albuterol/Ipratropium (Duoneb -) 1 amp NEB TIDR [facility] Last Admin: 01/22/17 13:45 Dose: Not Given Alprazolam (Xanax -) 0.25 mg PO Q8H PRN PRN Reason: ANXIETY Last Admin: 01/22/17 10:11 Dose: 0.25 mg Aspirin (Asa -) 81 mg PO DAILY [facility] Last Admin: 01/17/17 09:52 Dose: 81 mg Bacitracin (Bacitracin -) 1 applic TP BID [facility] Stop: 01/26/17 21:59 Last Admin: 01/21/17 21:47 Dose: Not Given Cholestyramine Resin (Questran Light Packet -) 4 gm PO BID [facility] Last Admin: 01/22/17 10:09 Dose: 4 gm Clopidogrel Bisulfate (Plavix -) 75 mg PO DAILY [facility] Last Admin: 01/17/17 09:54 Dose: Not Given Collagenase (Santyl -) 1 applic TP DAILY [facility] Last Admin: 01/21/17 10:50 Dose: 1 applic Divalproex Sodium (Depakote Sprinkle Caps -) 250 mg GT DAILY [facility] Last Admin: 01/22/17 10:09 Dose: 250 mg Insulin Aspart (Novolog Vial Sliding Scale -) 1 vial SQ Q6HPO [facility] PRN Reason: Protocol Last Admin: 01/22/17 12:03 Dose: 2 unit Levetiracetam (Keppra Oral Solution -) 500 mg PO DAILY [facility] Last Admin: 01/22/17 10:08 Dose: 500 mg Metoclopramide HCl (Reglan Injection -) 10 mg IVPB Q8H [facility] Last Admin: 01/21/17 22:02 Dose: 10 mg Mirtazapine (Remeron -) 7.5 mg PO HS [facility] Last Admin: 01/21/17 21:45 Dose: 7.5 mg Nystatin (Mycostatin Cream -) 1 applic TP BID [facility] Last Admin: 01/21/17 21:44 Dose: Not Given Ondansetron HCl (Zofran Injection) 8 mg IVPB Q8H PRN PRN Reason: NAUSEA AND/OR VOMITING Last Admin: 01/21/17 13:08 Dose: 8 mg Oxycodone HCl (Roxicodone -) 5 mg PO Q8H PRN Last Admin: 01/21/17 10:50 Dose: 5 mg Pantoprazole Sodium (Protonix Packets For Oral Suspension -) 40 mg GT DAILY [facility] Last Admin: 01/22/17 10:10 Dose: 40 mg - Objective Vital Signs: Vital Signs Temperature 98.2 F 01/21/17 22:00 Pulse Rate 104 H 01/22/17 13:45 Respiratory Rate 20 01/22/17 09:00 Blood Pressure 109/61 01/22/17 09:00 O2 Sat by Pulse Oximetry (%) 100 01/22/17 13:45 Constitutional: Yes: No Distress, Thin Eyes: Yes: Conjunctiva Clear, EOM Intact HENT: Yes: Atraumatic, Normocephalic Neck: Yes: Supple, Trachea Midline Cardiovascular: Yes: Regular Rate and Rhythm, Murmur, S1, S2. No: Bradycardia, Tachycardia, Pulse Irregular, Bruit, JVD, Gallop, Rub, S3, S4, Varicosities Respiratory: Yes: Regular, Diminished. No: Bradypnea, Rales, Rhonchi, Wheezes Gastrointestinal: Yes: Normal Bowel Sounds, Soft. No: Distention, Tenderness Extremities: Yes: Amputation. No: WNL Edema: No Peripheral Pulses WNL: No Neurological: Yes: Alert, Oriented Psychiatric: Yes: Alert, Oriented Labs: CBC, BMP 01/20/17 06:00 01/21/17 08:00 INR, PTT INR 1.34 (0.82-1.09) H 01/07/17 05:15 Fibrinogen 375.0 mg/dL (238-498) 01/07/17 05:15 - ....Imaging Chest X-ray: Report Reviewed, Image Reviewed EKG: Report Reviewed, Image Reviewed Other: Report Reviewed, Image Reviewed Assessment/Plan 61 year old man h/o COPD, PAD s/o amputations, PNA, DM, CKD, CAD s/p [place], ischemic CM, Chronic systolic CHF admitted with ams, lethargy, dec appettite, presumed sepsis. CAD h/o [place], ischemic cardiomyopathy with chronic systolic CHF -does not appear sig volume overloaded -IV Lasix stopped -no labs today to review bun/creat that was trending up yesterday -would dose Lasix only prn at this time with plan to resume lower dose po lasix when bun/creat stabilizes -ASA and Plavix were resumed -plan to re-introduce coreg when bp tolerates, currently still does not -hold off on CRISTHIAN-I/ARB given CJ on CKD Sepsis-presumed secondary to PNA and C. diff s/p chest tube -off Abx -BP has been running low normal but has been stable
--- NOTE | 2017-01-22 14:51 | PN ---
Progress Note, Physician Chief Complaint: FTT, cdiff History of Present Illness: S/P peg, on tube feeding now, -received Physical therapy 2 days ago -worsening BUN/Cr, was on furosemide, which is on hold for now -repeat labs today and in AM, if any improvement, may start furosemide at 20 mg po daily. -CXR urgent ordered to monitor any changes in pulmonary congestion. -seen during dressing change, extremely agitated, kicking nursing staff. - Current Medication List Current Medications: Active Medications Acetaminophen (Tylenol -) 650 mg PO Q12H PRN PRN Reason: PAIN LEVEL 6-10 Last Admin: 01/17/17 09:52 Dose: 650 mg Albuterol/Ipratropium (Duoneb -) 1 amp NEB TIDR [facility] Last Admin: 01/22/17 13:45 Dose: Not Given Alprazolam (Xanax -) 0.25 mg PO Q8H PRN PRN Reason: ANXIETY Last Admin: 01/22/17 10:11 Dose: 0.25 mg Aspirin (Asa -) 81 mg PO DAILY [facility] Last Admin: 01/17/17 09:52 Dose: 81 mg Bacitracin (Bacitracin -) 1 applic TP BID [facility] Stop: 01/26/17 21:59 Last Admin: 01/21/17 21:47 Dose: Not Given Cholestyramine Resin (Questran Light Packet -) 4 gm PO BID [facility] Last Admin: 01/22/17 10:09 Dose: 4 gm Clopidogrel Bisulfate (Plavix -) 75 mg PO DAILY [facility] Last Admin: 01/17/17 09:54 Dose: Not Given Collagenase (Santyl -) 1 applic TP DAILY [facility] Last Admin: 01/21/17 10:50 Dose: 1 applic Divalproex Sodium (Depakote Sprinkle Caps -) 250 mg GT DAILY [facility] Last Admin: 01/22/17 10:09 Dose: 250 mg Insulin Aspart (Novolog Vial Sliding Scale -) 1 vial SQ Q6HPO [facility] PRN Reason: Protocol Last Admin: 01/22/17 12:03 Dose: 2 unit Levetiracetam (Keppra Oral Solution -) 500 mg PO DAILY [facility] Last Admin: 01/22/17 10:08 Dose: 500 mg Metoclopramide HCl (Reglan Injection -) 10 mg IVPB Q8H [facility] Last Admin: 01/21/17 22:02 Dose: 10 mg Mirtazapine (Remeron -) 7.5 mg PO HS [facility] Last Admin: 01/21/17 21:45 Dose: 7.5 mg Nystatin (Mycostatin Cream -) 1 applic TP BID [facility] Last Admin: 01/21/17 21:44 Dose: Not Given Ondansetron HCl (Zofran Injection) 8 mg IVPB Q8H PRN PRN Reason: NAUSEA AND/OR VOMITING Last Admin: 01/21/17 13:08 Dose: 8 mg Oxycodone HCl (Roxicodone -) 5 mg PO Q8H PRN Last Admin: 01/21/17 10:50 Dose: 5 mg Pantoprazole Sodium (Protonix Packets For Oral Suspension -) 40 mg GT DAILY [facility] Last Admin: 01/22/17 10:10 Dose: 40 mg - Objective Vital Signs: Vital Signs Temperature 98.2 F 01/21/17 22:00 Pulse Rate 104 H 01/22/17 13:45 Respiratory Rate 20 01/22/17 09:00 Blood Pressure 109/61 01/22/17 09:00 O2 Sat by Pulse Oximetry (%) 100 01/22/17 13:45 Constitutional: Yes: Well Nourished, No Distress, Calm, Anxious Cardiovascular: Yes: Regular Rate and Rhythm Respiratory: Yes: Regular Gastrointestinal: Yes: Normal Bowel Sounds Musculoskeletal: Yes: WNL Extremities: Yes: Amputation (LLE) Edema: No Neurological: Yes: Alert Psychiatric: Yes: Alert, Agitated Labs: CBC, BMP 01/20/17 06:00 01/21/17 08:00 INR, PTT INR 1.34 (0.82-1.09) H 01/07/17 05:15 Fibrinogen 375.0 mg/dL (238-498) 01/07/17 05:15 Problem List - Problems (1) CHF exacerbation Assessment/Plan: Pulmonary and cardiology consult repeat CXR today Code(s): I50.9 - HEART FAILURE, UNSPECIFIED Qualifiers: Congestive heart failure type: unspecified congestive heart failure type Qualified Code(s): I50.9 - Heart failure, unspecified (2) 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 complication Code(s): E11.29 - TYPE 2 DIABETES MELLITUS W OTH DIABETIC KIDNEY COMPLICATION (3) Acute kidney failure Assessment/Plan: -secondary to sepsis, dehydration stable at this time continue to monitor Code(s): N17.9 - ACUTE KIDNEY FAILURE, UNSPECIFIED (4) Depressed Assessment/Plan: extreme agitation, wants to be left alone Code(s): F32.9 - MAJOR DEPRESSIVE DISORDER, SINGLE EPISODE, UNSPECIFIED Qualifiers: Depression Type: major depressive disorder Major depression recurrence : single episode Active/Remission status: currently active Major depression episode severity: severe Psychotic features: without psychotic features Qualified Code(s): F32.2 - Major depressive disorder, single episode, severe without psychotic features (5) Anemia Assessment/Plan: stable. Code(s): D64.9 - ANEMIA, UNSPECIFIED Qualifiers: Anemia type: unspecified type Qualified Code(s): D64.9 - Anemia, unspecified (6) Failure to thrive Assessment/Plan: -secondary to depression -PEG, -KUB showed fecal debri r/t constipation?, given senna, had BM x 3 Code(s): [id number] - Qualifiers: Failure to thrive age range: in adult Qualified Code(s): R62.7 - Adult failure to thrive (7) Pleural effusion Assessment/Plan: -repeat CXR showed moderate right pleural effusion -PO lasix low dose in AM, if BUN/Cr is trending down Code(s): J90 - PLEURAL EFFUSION, NOT ELSEWHERE CLASSIFIED Assessment/Plan see problem list
[2017-01-22] MEDS: COLLAGENASE CLOSTRIDIUM HIST. 30 GRAMS TUBE TP SCH (15:00)
[2017-01-22] MEDS ORDERED: METOCLOPRAMIDE HCL INJECTION 10 MG/2 ML VIAL IVPB PRN (15:13)
[2017-01-22] MEDS: NYSTATIN 100,000 UNIT/GM TOPICAL CREAM 15 GM TUBE TP SCH ×2 (15:24→21:16)
[2017-01-22] MEDS: BACITRACIN 15 GM TUBE TOPICAL OINTMENT TP SCH ×2 (15:24→21:17)
[2017-01-22] MEDS: oxyCODONE HCL 5 MG TABLET PO PRN (21:15)
[2017-01-22] MEDS: MIRTAZAPINE 15 MG TABLET (FP) PO SCH (22:59)
[2017-01-23] MEDS: INSULIN SLIDING SCALE (NOVOLOG) 1 VIAL SQ SCH ×5 (00:40→21:04)
[2017-01-23] MEDS: ALBUTEROL SO4 2.5/IPRATROPIUM 0.5 INH SOL 3 ML VIAL.NEB. NEB SCH ×3 (06:30→23:16)
[2017-01-23] MEDS ORDERED: PT OWN MED DRAWER 7, Y5N ONE (10:20)
[2017-01-23] MEDS: levETIRAcetam 500 MG/5 ML ORAL SOLUTION (UNIT-DOSE CUPS) PO SCH (10:26)
[2017-01-23] MEDS: CHOLESTYRAMINE/ASPARTAME 4 GM PACKET PO SCH ×2 (10:26→21:56)
[2017-01-23] MEDS: DIVALPROEX SODIUM 125 MG SPRINKLE CAPS (FP) GT SCH (10:27)
[2017-01-23] MEDS: PANTOPRAZOLE SOD 40 MG SUSPENSION PACKET GT SCH (10:27)
--- NOTE | 2017-01-23 10:37 | PN ---
Progress Note, Physician Chief Complaint: FTT, cdiff History of Present Illness: S/P peg, on tube feeding now, -received Physical therapy 2 days ago -worsening BUN/Cr, was on furosemide, which is on hold for now -refused labs yesterday and today -CXR 01/22/17 showed moderate right lung pleural effusion -still refusing all the treatment and interventions -refuses assessment - Current Medication List Current Medications: Active Medications Acetaminophen (Tylenol -) 650 mg PO Q12H PRN PRN Reason: PAIN LEVEL 6-10 Last Admin: 01/17/17 09:52 Dose: 650 mg Albuterol/Ipratropium (Duoneb -) 1 amp NEB TIDR [facility] Last Admin: 01/23/17 06:30 Dose: 1 amp Alprazolam (Xanax -) 0.25 mg PO Q8H PRN PRN Reason: ANXIETY Last Admin: 01/22/17 21:15 Dose: 0.25 mg Aspirin (Asa -) 81 mg PO DAILY [facility] Last Admin: 01/17/17 09:52 Dose: 81 mg Bacitracin (Bacitracin -) 1 applic TP BID [facility] Stop: 01/26/17 21:59 Last Admin: 01/22/17 21:17 Dose: 1 applic Cholestyramine Resin (Questran Light Packet -) 4 gm PO BID [facility] Last Admin: 01/23/17 10:26 Dose: 4 gm Clopidogrel Bisulfate (Plavix -) 75 mg PO DAILY [facility] Last Admin: 01/17/17 09:54 Dose: Not Given Collagenase (Santyl -) 1 applic TP DAILY [facility] Last Admin: 01/22/17 15:00 Dose: 1 applic Divalproex Sodium (Depakote Sprinkle Caps -) 250 mg GT DAILY [facility] Last Admin: 01/23/17 10:27 Dose: 250 mg Insulin Aspart (Novolog Vial Sliding Scale -) 1 vial SQ Q6HPO [facility] PRN Reason: Protocol Last Admin: 01/23/17 06:54 Dose: Not Given Levetiracetam (Keppra Oral Solution -) 500 mg PO DAILY [facility] Last Admin: 01/23/17 10:26 Dose: 500 mg Metoclopramide HCl (Reglan Injection -) 10 mg IVPB Q8H PRN PRN Reason: NAUSEA AND/OR VOMITING Mirtazapine (Remeron -) 7.5 mg PO HS [facility] Last Admin: 01/22/17 22:59 Dose: 7.5 mg Nystatin (Mycostatin Cream -) 1 applic TP BID [facility] Last Admin: 01/22/17 21:16 Dose: 1 applic Ondansetron HCl (Zofran Injection) 8 mg IVPB Q8H PRN PRN Reason: NAUSEA AND/OR VOMITING Last Admin: 01/21/17 13:08 Dose: 8 mg Oxycodone HCl (Roxicodone -) 5 mg PO Q8H PRN Last Admin: 01/22/17 21:15 Dose: 5 mg Pantoprazole Sodium (Protonix Packets For Oral Suspension -) 40 mg GT DAILY [facility] Last Admin: 01/23/17 10:27 Dose: 40 mg - Objective Vital Signs: Vital Signs Temperature 96.3 F L 01/23/17 08:05 Pulse Rate 107 H 01/23/17 08:05 Respiratory Rate 18 01/23/17 08:05 Blood Pressure 102/61 01/23/17 08:05 O2 Sat by Pulse Oximetry (%) 100 01/22/17 21:00 Constitutional: Yes: Well Nourished, Anxious Edema: No Neurological: Yes: Alert Psychiatric: Yes: Alert, Agitated Labs: CBC, BMP 01/20/17 06:00 01/21/17 08:00 INR, PTT INR 1.34 (0.82-1.09) H 01/07/17 05:15 Fibrinogen 375.0 mg/dL (238-498) 01/07/17 05:15 Problem List - Problems (1) CHF exacerbation Assessment/Plan: Pulmonary and cardiology consult repeat CXR showed moderate right lung pleural effusion Code(s): I50.9 - HEART FAILURE, UNSPECIFIED Qualifiers: Congestive heart failure type: unspecified congestive heart failure type Qualified Code(s): I50.9 - Heart failure, unspecified (2) 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 complication Code(s): E11.29 - TYPE 2 DIABETES MELLITUS W OTH DIABETIC KIDNEY COMPLICATION (3) Acute kidney failure Assessment/Plan: -patient refusing labs Code(s): N17.9 - ACUTE KIDNEY FAILURE, UNSPECIFIED (4) Depressed Assessment/Plan: extreme agitation, wants to be left alone -will start him on Seroquel 25 mg BID Code(s): F32.9 - MAJOR DEPRESSIVE DISORDER, SINGLE EPISODE, UNSPECIFIED Qualifiers: Depression Type: major depressive disorder Major depression recurrence : single episode Active/Remission status: currently active Major depression episode severity: severe Psychotic features: without psychotic features Qualified Code(s): F32.2 - Major depressive disorder, single episode, severe without psychotic features (5) Anemia Assessment/Plan: -unable to assess -refusing labs Code(s): D64.9 - ANEMIA, UNSPECIFIED Qualifiers: Anemia type: unspecified type Qualified Code(s): D64.9 - Anemia, unspecified (6) Failure to thrive Assessment/Plan: -secondary to depression Code(s): [id number] - Qualifiers: Failure to thrive age range: in adult Qualified Code(s): R62.7 - Adult failure to thrive (7) Pleural effusion Assessment/Plan: -repeat CXR showed moderate right pleural effusion -refusing labs Code(s): J90 - PLEURAL EFFUSION, NOT ELSEWHERE CLASSIFIED Assessment/Plan see problem list
[2017-01-23] MEDS: BACITRACIN 15 GM TUBE TOPICAL OINTMENT TP SCH ×2 (10:57→21:59)
[2017-01-23] MEDS: NYSTATIN 100,000 UNIT/GM TOPICAL CREAM 15 GM TUBE TP SCH ×2 (10:57→21:58)
[2017-01-23] MEDS: QUEtiapine FUMARATE 25 MG TABLET (FP) PO SCH ×2 (10:57→21:57)
[2017-01-23] MEDS: COLLAGENASE CLOSTRIDIUM HIST. 30 GRAMS TUBE TP SCH (10:58)
[2017-01-23] MEDS ORDERED: INSULIN (NOVOLOG) ASPART 100 UNITS/ML 10ML VIAL ONE (11:36)
[2017-01-23] MEDS: oxyCODONE HCL 5 MG TABLET PO PRN (14:36)
--- NOTE | 2017-01-23 14:51 | PN ---
Progress Note, Physician History of Present Illness: pulmonary alert,nad,-congestion - Current Medication List Current Medications: Active Medications Acetaminophen (Tylenol -) 650 mg PO Q12H PRN PRN Reason: PAIN LEVEL 6-10 Last Admin: 01/17/17 09:52 Dose: 650 mg Albuterol/Ipratropium (Duoneb -) 1 amp NEB TIDR [facility] Last Admin: 01/23/17 06:30 Dose: 1 amp Alprazolam (Xanax -) 0.25 mg PO Q8H PRN PRN Reason: ANXIETY Last Admin: 01/22/17 21:15 Dose: 0.25 mg Aspirin (Asa -) 81 mg PO DAILY [facility] Last Admin: 01/17/17 09:52 Dose: 81 mg Bacitracin (Bacitracin -) 1 applic TP BID [facility] Stop: 01/26/17 21:59 Last Admin: 01/23/17 10:57 Dose: Not Given Cholestyramine Resin (Questran Light Packet -) 4 gm PO BID [facility] Last Admin: 01/23/17 10:26 Dose: 4 gm Clopidogrel Bisulfate (Plavix -) 75 mg PO DAILY [facility] Last Admin: 01/17/17 09:54 Dose: Not Given Collagenase (Santyl -) 1 applic TP DAILY [facility] Last Admin: 01/23/17 10:58 Dose: Not Given Divalproex Sodium (Depakote Sprinkle Caps -) 250 mg GT DAILY [facility] Last Admin: 01/23/17 10:27 Dose: 250 mg Insulin Aspart (Novolog Vial Sliding Scale -) 1 vial SQ Q6HPO [facility] PRN Reason: Protocol Last Admin: 01/23/17 11:39 Dose: Not Given Levetiracetam (Keppra Oral Solution -) 500 mg PO DAILY [facility] Last Admin: 01/23/17 10:26 Dose: 500 mg Metoclopramide HCl (Reglan Injection -) 10 mg IVPB Q8H PRN PRN Reason: NAUSEA AND/OR VOMITING Mirtazapine (Remeron -) 7.5 mg PO HS [facility] Last Admin: 01/22/17 22:59 Dose: 7.5 mg Nystatin (Mycostatin Cream -) 1 applic TP BID [facility] Last Admin: 01/23/17 10:57 Dose: Not Given Ondansetron HCl (Zofran Injection) 8 mg IVPB Q8H PRN PRN Reason: NAUSEA AND/OR VOMITING Last Admin: 01/21/17 13:08 Dose: 8 mg Oxycodone HCl (Roxicodone -) 5 mg PO Q8H PRN Last Admin: 01/23/17 14:36 Dose: 5 mg Pantoprazole Sodium (Protonix Packets For Oral Suspension -) 40 mg GT DAILY [facility] Last Admin: 01/23/17 10:27 Dose: 40 mg Quetiapine Fumarate (Seroquel -) 25 mg PO BID [facility] Last Admin: 01/23/17 10:57 Dose: 25 mg - Objective Vital Signs: Vital Signs Temperature 96.3 F L 01/23/17 08:05 Pulse Rate 103 H 01/23/17 11:20 Respiratory Rate 18 01/23/17 14:19 Blood Pressure 104/64 01/23/17 14:19 O2 Sat by Pulse Oximetry (%) 98 01/23/17 11:20 Constitutional: Yes: Well Nourished, Calm Eyes: Yes: WNL HENT: Yes: WNL Neck: Yes: WNL Cardiovascular: Yes: Regular Rate and Rhythm, S1, S2 Respiratory: Yes: Diminished Gastrointestinal: Yes: Normal Bowel Sounds, Soft Extremities: Yes: Amputation (left bka) Edema: No Labs: CBC, BMP 01/20/17 06:00 01/21/17 08:00 INR, PTT INR 1.34 (0.82-1.09) H 01/07/17 05:15 Fibrinogen 375.0 mg/dL (238-498) 01/07/17 05:15 - ....Imaging Chest X-ray: Report Reviewed, Image Reviewed Assessment/Plan - Problems (1) Pneumonia Code(s): J18.9 - PNEUMONIA, UNSPECIFIED ORGANISM Qualifiers: Pneumonia type: due to unspecified organism Laterality: bilateral Lung location: lower lobe of lung Qualified Code(s): J18.9 - Pneumonia, unspecified organism (2) CHF exacerbation Code(s): I50.9 - HEART FAILURE, UNSPECIFIED Qualifiers: Congestive heart failure type: unspecified congestive heart failure type Qualified Code(s): I50.9 - Heart failure, unspecified (3) 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 complication Code(s): E11.29 - TYPE 2 DIABETES MELLITUS W OTH DIABETIC KIDNEY COMPLICATION (4) RUBY (acute kidney injury) Code(s): N17.9 - ACUTE KIDNEY FAILURE, UNSPECIFIED (5) Acquired absence of left foot Code(s): Z89.432 - ACQUIRED ABSENCE OF LEFT FOOT (6) Acquired absence of right foot Code(s): Z89.431 - ACQUIRED ABSENCE OF RIGHT FOOT (7) CAD (coronary artery disease) Code(s): I25.10 - ATHSCL HEART DISEASE OF [place] CORONARY ARTERY W/O ANG PCTRS (8) Cellulitis and abscess of foot Code(s): L03.119 - CELLULITIS OF UNSPECIFIED PART OF LIMB L02.619 - CUTANEOUS ABSCESS OF UNSPECIFIED FOOT (9) 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
[2017-01-23] MEDS: MIRTAZAPINE 15 MG TABLET (FP) PO SCH (21:55)
[2017-01-23] MEDS: ALPRAZolam 0.25 MG TABLET PO PRN (21:56)
[2017-01-24] MEDS: INSULIN SLIDING SCALE (NOVOLOG) 1 VIAL SQ SCH ×2 (00:15→05:44)
[2017-01-24] MEDS: oxyCODONE HCL 5 MG TABLET PO PRN (00:28)
[2017-01-24] MEDS: ALBUTEROL SO4 2.5/IPRATROPIUM 0.5 INH SOL 3 ML VIAL.NEB. NEB SCH (05:38)
[2017-01-24 06:47] VITALS: TEMP 97.8
[2017-01-24] MEDS: METOCLOPRAMIDE HCL INJECTION 10 MG/2 ML VIAL IVPB SCH (08:35)
[2017-01-24] MEDS ORDERED: PT OWN MED DRAWER 7, Y5N ONE (10:17)
[2017-01-24] MEDS: PANTOPRAZOLE SOD 40 MG SUSPENSION PACKET GT SCH (10:23)
[2017-01-24] MEDS: ASPIRIN 81 MG CHEWABLE TABLETS PO SCH (10:23)
[2017-01-24] MEDS: CHOLESTYRAMINE/ASPARTAME 4 GM PACKET PO SCH (10:23)
[2017-01-24] MEDS: levETIRAcetam 500 MG/5 ML ORAL SOLUTION (UNIT-DOSE CUPS) PO SCH (10:24)
[2017-01-24] MEDS: NYSTATIN 100,000 UNIT/GM TOPICAL CREAM 15 GM TUBE TP SCH (10:24)
[2017-01-24] MEDS: DIVALPROEX SODIUM 125 MG SPRINKLE CAPS (FP) GT SCH (10:24)
[2017-01-24] MEDS: QUEtiapine FUMARATE 25 MG TABLET (FP) PO SCH (10:28)
[2017-01-24] MEDS: COLLAGENASE CLOSTRIDIUM HIST. 30 GRAMS TUBE TP SCH (10:29)
[2017-01-24] MEDS: CLOPIDOGREL BISULFATE 75 MG TABLET (FP) PO SCH (10:30)
[2017-01-24] MEDS: BACITRACIN 15 GM TUBE TOPICAL OINTMENT TP SCH (10:30)
--- NOTE | 2017-01-24 10:42 | PN ---
Progress Note, Physician History of Present Illness: seen and examined today. calm, no overnight evnets. - Current Medication List Current Medications: Active Medications Acetaminophen (Tylenol -) 650 mg PO Q12H PRN PRN Reason: PAIN LEVEL 6-10 Last Admin: 01/17/17 09:52 Dose: 650 mg Albuterol/Ipratropium (Duoneb -) 1 amp NEB TIDR [facility] Last Admin: 01/24/17 05:38 Dose: Not Given Alprazolam (Xanax -) 0.25 mg PO Q8H PRN PRN Reason: ANXIETY Last Admin: 01/23/17 21:56 Dose: 0.25 mg Aspirin (Asa -) 81 mg PO DAILY [facility] Last Admin: 01/24/17 10:23 Dose: 81 mg Bacitracin (Bacitracin -) 1 applic TP BID [facility] Stop: 01/26/17 21:59 Last Admin: 01/24/17 10:30 Dose: Not Given Cholestyramine Resin (Questran Light Packet -) 4 gm PO BID [facility] Last Admin: 01/24/17 10:23 Dose: 4 gm Clopidogrel Bisulfate (Plavix -) 75 mg PO DAILY [facility] Last Admin: 01/24/17 10:30 Dose: 75 mg Collagenase (Santyl -) 1 applic TP DAILY [facility] Last Admin: 01/24/17 10:29 Dose: 1 applic Divalproex Sodium (Depakote Sprinkle Caps -) 250 mg GT DAILY [facility] Last Admin: 01/24/17 10:24 Dose: 250 mg Insulin Aspart (Novolog Vial Sliding Scale -) 1 vial SQ Q6HPO [facility] PRN Reason: Protocol Last Admin: 01/24/17 05:44 Dose: 2 unit Levetiracetam (Keppra Oral Solution -) 500 mg PO DAILY [facility] Last Admin: 01/24/17 10:24 Dose: 500 mg Metoclopramide HCl (Reglan Injection -) 10 mg IVPB Q8H PRN PRN Reason: NAUSEA AND/OR VOMITING Mirtazapine (Remeron -) 7.5 mg PO HS [facility] Last Admin: 01/23/17 21:55 Dose: 7.5 mg Nystatin (Mycostatin Cream -) 1 applic TP BID [facility] Last Admin: 01/24/17 10:24 Dose: 1 applic Ondansetron HCl (Zofran Injection) 8 mg IVPB Q8H PRN PRN Reason: NAUSEA AND/OR VOMITING Last Admin: 01/21/17 13:08 Dose: 8 mg Oxycodone HCl (Roxicodone -) 5 mg PO Q8H PRN Last Admin: 01/24/17 00:28 Dose: 5 mg Pantoprazole Sodium (Protonix Packets For Oral Suspension -) 40 mg GT DAILY [facility] Last Admin: 01/24/17 10:23 Dose: 40 mg Quetiapine Fumarate (Seroquel -) 25 mg PO BID [facility] Last Admin: 01/24/17 10:28 Dose: 25 mg - Objective Vital Signs: Vital Signs Temperature 97.8 F 01/24/17 06:45 Pulse Rate 98 H 01/24/17 06:45 Respiratory Rate 20 01/24/17 06:45 Blood Pressure 114/66 01/24/17 06:45 O2 Sat by Pulse Oximetry (%) 95 01/23/17 21:00 Constitutional: Yes: No Distress, Calm, Cachectic, Thin HENT: Yes: Atraumatic, Normocephalic Cardiovascular: Yes: Regular Rate and Rhythm, Murmur, S1, S2. No: Bradycardia, Tachycardia, Pulse Irregular, Bruit, JVD, Gallop, Rub, S3, S4, Varicosities Respiratory: Yes: Regular, Diminished. No: Rales, Rhonchi, Wheezes Gastrointestinal: Yes: Normal Bowel Sounds, Soft Extremities: Yes: Amputation Edema: No Peripheral Pulses WNL: No Neurological: Yes: Alert Psychiatric: Yes: Alert Labs: CBC, BMP 01/20/17 06:00 01/21/17 08:00 INR, PTT INR 1.34 (0.82-1.09) H 01/07/17 05:15 Fibrinogen 375.0 mg/dL (238-498) 01/07/17 05:15 - ....Imaging Chest X-ray: Report Reviewed, Image Reviewed EKG: Report Reviewed, Image Reviewed Other: Report Reviewed, Image Reviewed Assessment/Plan 61 year old man h/o COPD, PAD s/o amputations, PNA, DM, CKD, CAD s/p CT, ischemic CM, Chronic systolic CHF admitted with ams, lethargy, dec appettite, presumed sepsis. CAD h/o CT, ischemic cardiomyopathy with chronic systolic CHF -still does not appear sig volume overloaded -pt refusing labs, no eating or drinking much -would hold off on lasix as would risk intravascular depletion again and not sig volume overloaded currently -dose lasix only prn -ASA and Plavix were resumed -plan to re-introduce coreg when bp tolerates, currently still does not -hold off on CRISTHIAN-I/ARB given CJ on CKD
--- NOTE | 2017-01-24 11:54 | DS ---
Physical Examination Vital Signs: Vital Signs Temperature 97.8 F 01/24/17 06:45 Pulse Rate 98 H 01/24/17 06:45 Respiratory Rate 20 01/24/17 06:45 Blood Pressure 114/66 01/24/17 06:45 O2 Sat by Pulse Oximetry (%) 95 01/23/17 21:00 Constitutional: Yes: Well Nourished, No Distress, Calm Cardiovascular: Yes: Regular Rate and Rhythm Respiratory: Yes: Regular Gastrointestinal: Yes: Normal Bowel Sounds Extremities: Yes: Amputation (LLE) Edema: No Peripheral Pulses WNL: Yes Wound/Incision: Yes: Dressing Dry and Intact Neurological: Yes: Alert, Oriented Psychiatric: Yes: Alert, Agitated (intermittent) Labs: CBC, BMP 01/20/17 06:00 01/21/17 08:00 Discharge Summary Reason For Visit: RESPIRATORY FAILURE,PNEUMONIA OF BOTH LOWER LOBES Current Active Problems Anxiety (Acute) Appetite loss (Acute) CHF exacerbation (Acute) Clostridium difficile diarrhea (Acute) Elevated troponin I measurement (Acute) Failure to thrive (Acute) Glaucoma (Acute) Groin rash (Acute) Pleural effusion (Acute) Pneumonia of both lower lobes (Acute) Respiratory failure (Acute) Thrombocytopenia (Acute) 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 complication (Acute) Osteomyelitis (Chronic) Other Procedures: PEG placement 01/21/17 Hospital Course: Patient originally came in with Failure to thrive, lethargy, refusing to eat and presumed sepsis. Initially he refused PEG but then agreed. He has chronic diarrhea due to history of cdiff. He was started on Cholestyramine BID. PMH: COPD, PAD s/o LLE amputation, PNA, DM, CKD, CAD s/p MA, ischemic CM, Chronic systolic CHF Upon admission his Chest CT showed BL Pleural effusion with PNE. He was treated with IV abx. Head CT was negative. 01/02/17- Chest tube was inserted in the right lung with moderate drainage. Blood, Urine, Pleural fluid cultures were negative during his stay. Throughout his stay patient was agitated, refused treatment/medications and procedures intermittently. 01/21/17- PEG was inserted by Dr Culp. Glucerna was started, he tolerated the feeding well. Along with PEG tube feeding, he will continue with po intake as tolerated. Condition: Stable - Instructions Diet, Activity, Other Instructions: Diet: Glucerna 1.5 at 63 mls/hr, with no free water. Water only to flush medications. Encourage PO intake Wound care: Santyl, gauze and gauze wrap or tegaderm- daily Outpatient procedures: CXR in 1 week, Follow up with Pulmonary CBC/CMET in 1 week Start Levemir 10u AM and PM- titrate as needed Referrals: Paul Rios MD [Primary Care Provider] - Disposition: [facility] - Home Medications Comprehensive Discharge Medication List: Ambulatory Orders Ascorbate Calcium [Vitamin C] 500 mg PO DAILY 06/22/16 Calcitriol [Calcitriol -] 0.25 mcg PO DAILY 06/22/16 Levetiracetam [Keppra Xr -] 500 mg PO DAILY 06/22/16 Sevelamer HCl [Renagel] 800 mg PO TID 06/22/16 Atorvastatin Ca [Lipitor] 20 mg PO HS #30 tablet 06/29/16 Acetaminophen [Tylenol .Regular Strength -] 650 mg PO Q4H PRN #0 tablet Furosemide [Lasix -] 20 mg PO DAILY #30 tablet 09/26/16 Insulin (Levemir) [Levemir Vial] 10 units SQ BIDI #10 ml 09/26/16 Insulin Sliding Scale [Novolog Vial Sliding Scale -] 1 vial SQ ACHS units 09/26 Potassium Chloride [K-Dur -] 20 meq PO DAILY #30 tab 09/26/16 Aspirin Coated [Ecotrin -] 81 mg PO DAILY #30 tab 12/11/16 Carvedilol [Coreg -] 3.125 mg PO BID tablet 12/11/16 Clopidogrel Bisulfate [Plavix -] 75 mg PO DAILY tablet 12/11/16 Divalproex [Depakote -] 250 mg PO DAILY tab 12/11/16 Lactobacillus Acidophilus [Bacid -] 1 tab PO DAILY 30 Days 12/11/16 Mirtazapine [Remeron -] 30 mg PO HS tablet 12/11/16 Oxycodone HCl [Roxicodone -] 5 mg PO Q4H PRN #0 tablet MDD 6 12/11/16 Diazepam [Valium] 5 mg PO BID PRN #0 tablet MDD 2 12/20/16 Pantoprazole Sodium [Protonix -] 40 mg PO DAILY tab 12/20/16 Acetaminophen [Tylenol .Regular Strength -] 650 mg PO Q12H PRN #0 tablet Albuterol 2.5/Ipratropium 0.5 [Duoneb -] 1 amp NEB TIDR amp 01/24/17 Alprazolam [Xanax] 0.25 mg PO Q8H PRN #0 tablet MDD 3 01/24/17 Aspirin [ASA -] 81 mg PO DAILY tab.chew 01/24/17 Cholestyramine/Aspartame [Questran Light Packet -] 4 gm PO BID packet 01/24/17 Clopidogrel Bisulfate [Plavix -] 75 mg PO DAILY tablet 01/24/17 Collagenase Clostridium Hist. [Santyl -] 1 applic TP DAILY tube 01/24/17 Divalproex Sprinkle [Depakote Sprinkle -] 250 mg GT DAILY cap.sprink 01/24/17 Insulin (Levemir) [Levemir Flexpen -] 10 units SQ BID #1 pen 01/24/17 Insulin Sliding Scale [Novolog Vial Sliding Scale -] 1 vial SQ Q6HPO units Levetiracetam [Keppra Oral Solution -] 500 mg PO DAILY 30 Days 01/24/17 Metoclopramide Oral Soln [Reglan *Liquid*] 10 mg PO Q8H PRN #90 udc 01/24/17 Mirtazapine [Remeron -] 7.5 mg PO HS tablet 01/24/17 Nystatin Cream [Mycostatin Cream -] 1 applic TP BID applic 01/24/17 Oxycodone HCl [Roxicodone -] 5 mg PO Q8H PRN #0 tablet MDD 3 01/24/17 Pantoprazole Suspension [Protonix Packets For Oral Suspension -] 40 mg GT DAILY packet 01/24/17 Quetiapine Fumarate [Seroquel -] 25 mg PO BID tablet 01/24/17
[2017-01-24 13:19] VITALS: BP 105/64; PULSE 109
[2017-01-27 11:22] LABS: HEP B SURFACE AB Non Reactive
== END 2017-01-24 12:24 | DRG 871 ==
LOC: JER 18:16 → JICU 21:09 → J8W 01-07 20:27
PROVIDERS: ADMIT Family Medicine; ATTEND Family Medicine
PROC: 0W9930Z Drainage of Right Pleural Cavity with Drainage Device, Percutaneous Approach (ICD-10-PCS; 2017-01-02)
PROC: 05HM33Z Insertion of Infusion Device into Right Internal Jugular Vein, Percutaneous Approach (ICD-10-PCS; 2017-01-02)
PROC: 05HM33Z Insertion of Infusion Device into Right Internal Jugular Vein, Percutaneous Approach (ICD-10-PCS; 2017-01-03)
PROC: 30233N1 Transfusion of Nonautologous Red Blood Cells into Peripheral Vein, Percutaneous Approach (ICD-10-PCS; 2017-01-03)
PROC: 0DH63UZ Insertion of Feeding Device into Stomach, Percutaneous Approach (ICD-10-PCS; principal; 2017-01-20 08:00)
DX: A41.9 Sepsis, unspecified organism (principal); J69.0 Pneumonitis due to inhalation of food and vomit; R65.21 Severe sepsis with septic shock; G92 Toxic encephalopathy; I50.43 Acute on chronic combined systolic (congestive) and diastolic (congestive) heart failure; J96.02 Acute respiratory failure with hypercapnia; J96.01 Acute respiratory failure with hypoxia; I13.0 Hypertensive heart and chronic kidney disease with heart failure and stage 1 through stage 4 chronic kidney disease, or unspecified chronic kidney disease; M86.60 Other chronic osteomyelitis, unspecified site; N17.9 Acute kidney failure, unspecified; J90 Pleural effusion, not elsewhere classified; A04.7 Enterocolitis due to Clostridium difficile; J44.1 Chronic obstructive pulmonary disease with (acute) exacerbation; R62.7 Adult failure to thrive; D69.6 Thrombocytopenia, unspecified; H40.9 Unspecified glaucoma; E11.22 Type 2 diabetes mellitus with diabetic chronic kidney disease; N18.3 Chronic kidney disease, stage 3 (moderate); I25.5 Ischemic cardiomyopathy; Z79.4 Long term (current) use of insulin; F32.9 Major depressive disorder, single episode, unspecified; D64.9 Anemia, unspecified; I25.10 Atherosclerotic heart disease of native coronary artery without angina pectoris; E86.0 Dehydration; E78.5 Hyperlipidemia, unspecified; R63.0 Anorexia; R41.82 Altered mental status, unspecified; Z95.1 Presence of aortocoronary bypass graft; I73.9 Peripheral vascular disease, unspecified; E87.5 Hyperkalemia; Z68.20 Body mass index [BMI] 20.0-20.9, adult
CPT/HCPCS: 36415; 36430; 36600; 70450-TC; 71010-TC; 71250-TC; 74020-TC; 76705-TC; 80048; 80053; 80076; 80200; 81003; 81015; 82272; 82607; 82728; 82746; 82784; 82803; 82945; 83036; 83540; 83550; 83605; 83615; 83735; 83880; 84100; 84155; 84157; 84165; 84443; 84478; 84484; 85025; 85027; 85044; 85384; 85610; 85613; 85730; 85732; 86022; 86038; 86334; 86704; 86706; 86708; 86803; 86850; 86900; 86901; 86922; 87040; 87070; 87075; 87086; 87102; 87116; 87205; 87206; 87210; 87324; 87340; 87449; 89051; 93005; 93010; 94640; 94660; 99285-25; G0480; J1644; J1756; P9038; P9058

== ENCOUNTER 2017-01-27 00:49 | Emergency (ER) | payer OTHER ==
[2017-01-27 01:06] VITALS: BP 0/0; BMI 16.2
--- NOTE | 2017-01-27 01:09 | PDOC ---
History of Present Illness - General History Source: EMS Exam Limitations: Clinical Condition (cardiac arrest) - History of Present Illness Initial Comments: 01/27/17 01:19 Patient is a 61 year old male, from [facility], with a significant past medical history of left BKA amputation, diabetes mellitus type 2, DM, HTN, COPD, & RUBY, who was brought in to the ED by EMS s/p cardiac arrest. Patient was recently discharged from this hospital on 01/24. As per EMS patient was at baseline before he went down. EMS arrived at 12:15am and patient was down for 15 minutes prior to EMS arrival. Patient was given 2 AED before EMS arrival. En route to the ED patient was given 3 epis, 1 AED, and CPR which was started at 12:15am. Upon arrival to the ED patient was given 2 EPis, 2 glucose, and 1 bicarb. Patient at 12:59am. <Aj Rojas - Last Filed: 01/27/17 03:09> <Vanita Gregorio - Last Filed: 01/27/17 06:17> - General Chief Complaint: Cardiac Arrest Stated Complaint: CARDIAC ARREST Time Seen by Provider: 01/27/17 01:07 Past History <Aj Rojas - Last Filed: 01/27/17 03:09> - Past Medical History Anemia: No Cardiac Disorders: Yes (STENTS X5) CVA: Yes CHF: Yes Diabetes: Yes HTN: Yes Hypercholesterolemia: Yes Suicide Attempt (Hx): No - Surgical History Cardiac Surgery: Yes (stents) Orthopedic Surgery: Yes (R. hand, r. foot toes amputated, l. foot 4th & 5th toes amputated) - Immunization History Td Vaccination: Yes TDAP Vaccination: Yes Immunization Up to Date: No - Psycho/Social/Smoking Cessation Hx Anxiety: No Suicidal Ideation: No Smoking Status: No Smoking History: Unknown if ever smoked Have you smoked in the past 12 months: No Number of Cigarettes Smoked Daily: 0 Hx Alcohol Use: No Drug/Substance Use Hx: No Substance Use Type: None Hx Substance Use Treatment: No <Vanita Gregorio - Last Filed: 01/27/17 06:17> - Past Medical History Allergies/Adverse Reactions: Allergies Allergy/AdvReac Type Severity Reaction Status Date / Time banana Allergy Verified 01/19/17 13:29 Home Medications: Ambulatory Orders Sevelamer HCl [Renagel] 800 mg PO TID 06/22/16 Lactobacillus Acidophilus [Bacid -] 1 tab PO DAILY 30 Days 12/11/16 Acetaminophen [Tylenol .Regular Strength -] 650 mg PO Q12H PRN #0 tablet Albuterol 2.5/Ipratropium 0.5 [Duoneb -] 1 amp NEB TIDR amp 01/24/17 Alprazolam [Xanax] 0.25 mg PO Q8H PRN #0 tablet MDD 3 01/24/17 Aspirin [ASA -] 81 mg PO DAILY tab.chew 01/24/17 Cholestyramine/Aspartame [Questran Light Packet -] 4 gm PO BID packet 01/24/17 Clopidogrel Bisulfate [Plavix -] 75 mg PO DAILY tablet 01/24/17 Collagenase Clostridium Hist. [Santyl -] 1 applic TP DAILY tube 01/24/17 Divalproex Sprinkle [Depakote Sprinkle -] 250 mg GT DAILY cap.sprink 01/24/17 Insulin (Levemir) [Levemir Flexpen -] 10 units SQ BID #1 pen 01/24/17 Levetiracetam [Keppra Oral Solution -] 500 mg PO DAILY 30 Days 01/24/17 Mirtazapine [Remeron -] 7.5 mg PO HS tablet 01/24/17 Nystatin Cream [Mycostatin Cream -] 1 applic TP BID applic 01/24/17 Oxycodone HCl [Roxicodone -] 5 mg PO Q8H PRN #0 tablet MDD 3 01/24/17 Pantoprazole Suspension [Protonix Packets For Oral Suspension -] 40 mg GT DAILY packet 01/24/17 Quetiapine Fumarate [Seroquel -] 25 mg PO BID tablet 01/24/17 Review of Systems - Review of Systems Able to Perform ROS?: No Comments:: 01/27/17 01:19 Unable to perform ROS secondary to clinical condition. All Other Systems: Reviewed and Negative <Aj Rojas - Last Filed: 01/27/17 03:09> *Physical Exam - Vital Signs Last Vital Signs Temp Pulse Resp BP Pulse Ox 0/0 01/27/17 01:05 - Physical Exam Comments: 01/27/17 01:29 GENERAL: +Pale EYES: +Pupils enlarged bilaterally HEART: + Cardiac arrest. ABDOMEN: +Soft EXTREMITIES: +Left sided BKA. +Right sided TMA SKIN: +Warm to touch <Aj Rojas - Last Filed: 01/27/17 03:09> - Vital Signs Last Vital Signs Temp Pulse Resp BP Pulse Ox 0/0 01/27/17 01:05 <Vanita Gregorio - Last Filed: 01/27/17 06:17> Medical Decision Making - Medical Decision Making 01/27/17 03:[address] Sepulveda @3:11am. Call connected. <Aj Rojas - Last Filed: 01/27/17 03:09> - Medical Decision Making 01/27/17 01:09 Pt went into cardiac arrest at the [facility] at midnight. CPR in progress when EMS arrived 15 on later. Pt was intubated and IO line plaed; 3 EPI boluses given. Pt has IV normal saline running. On arrival, ETT in place. Right sided tube; we pulled the tube out 2 inches, with good BS bilaterally. In the ER CPR continued. Resp therapists at bedside. Pt was given 2 rounds of Epinephrine in the ER, 1 ampule of D50; one bicarb ampule in the ER. Pt never regained pulse. Time of 12:59AM. 01/27/17 03:39 Dr Sepulveda is aware of the patient's and he will sign the certificate. ME refused the case and gave us a release # [id number] <Vanita Gregorio - Last Filed: 01/27/17 06:17> *DC/Admit/Observation/Transfer - Attestations Scribe Attestion: 01/27/17 01:20 Documentation prepared by Aj Rojas, acting as medical resident for Vanita Gregorio MD. <Aj Rojas - Last Filed: 01/27/17 03:09> <Vanita Gregorio - Last Filed: 01/27/17 06:17> Diagnosis at time of Disposition: Cardiac arrest - Discharge Dispostion Disposition:
== END 2017-01-27 01:15 | disposition expired ==
LOC: JER 00:49
PROC: 5A12012 Performance of Cardiac Output, Single, Manual (ICD-10-PCS; principal; 2017-01-27)
DX: I46.9 Cardiac arrest, cause unspecified (principal); I25.10 Atherosclerotic heart disease of native coronary artery without angina pectoris; I13.0 Hypertensive heart and chronic kidney disease with heart failure and stage 1 through stage 4 chronic kidney disease, or unspecified chronic kidney disease; N18.9 Chronic kidney disease, unspecified; I50.9 Heart failure, unspecified; Z95.5 Presence of coronary angioplasty implant and graft; E11.9 Type 2 diabetes mellitus without complications; Z79.4 Long term (current) use of insulin; E78.00 Pure hypercholesterolemia, unspecified; J44.9 Chronic obstructive pulmonary disease, unspecified; Z86.73 Personal history of transient ischemic attack (TIA), and cerebral infarction without residual deficits; Z89.422 Acquired absence of other left toe(s); Z89.421 Acquired absence of other right toe(s)
CPT/HCPCS: 92950; 99285-25